=== PATIENT | female | born 1950 | race Caucasian/White ===

== ENCOUNTER → 2018-03-06 11:00 | Outpatient (CLI) | payer MEDICARE, OTHER, SELFPAY ==
--- NOTE | 2018-03-06 11:03 | US_ITS ---
STUDY: THYROID ULTRASOUND REASON FOR EXAM: Female, 67 years old. History of thyroid nodules. TECHNIQUE: Ultrasound evaluation of the thyroid was performed with real-time and static quintero-scale imaging. COMPARISON: None. FINDINGS: RIGHT LOBE: The right lobe of the thyroid gland measures 4.7 cm x 1.8 cm 6 cm. There is a homogeneous echotexture. A dominant solid nodule is seen in the upper pole of the right lobe. This measures 1.7 cm x 1.2 cm x 1.2 cm. There is also evidence of a 2 smaller hypoechoic nodules measuring 6 mm x 6 mm x 5 mm in the midportion of the right lobe. LEFT LOBE: The left lobe of the thyroid gland measures 4.4 cm x 1.5 cm x 1.1 cm. There is a homogeneous echotexture. There are 3 subcentimeter hypoechoic solid nodules. The largest is in the upper pole and measures 6 mm x 6 mm x 4 mm. Focal calcification is seen within it. ISTHMUS: The isthmus measures 2.0 mm. There is a 5 mm x 6 mm x 4 mm hypoechoic solid nodule along the right side of the isthmus. The regional lymph nodes are normal. US/Thyroid IMPRESSION: Bilateral thyroid nodules as described. The largest is a solid nodule measuring 1.7 cm x 1.2 cm x 1.2 cm. This lies in the upper pole of the right lobe. Electronically Signed: Delano Alegria MD at 12:54 EDT Tel [phone], Service support ,
== END ==
PROVIDERS: Family Provider Family Medicine; PCP Family Medicine; Visit Provider Surgery
DX: E04.1 Nontoxic single thyroid nodule (principal)
CPT/HCPCS: 76536

== ENCOUNTER 2018-03-28 06:59 | Day surgery (SDC) | payer MEDICARE, OTHER, SELFPAY ==
--- NOTE | 2018-03-28 | IMM_PTH ---
PATIENT: ANNIKA DOWNEY LOC: EN U#:[id number] AGE/SX: 67/F ROOM: RE03/28/[address]: Dr. Rusty Sawyer MD : 1950 BED: DIS: 03/28/2018 SPEC #: [id number] RECD: 03/29/18 11:40 STATUS: TISHA FAHAD #: [id number] SUSAN: 03/28/18 00:[address]: Rusty Sawyer DEPT: IMMUNOHISTOCHEMISTRY RECD BY: Collette Al ENTERED: 03/29/18 11:40 SP TYPE: IMMUNO OTHR DR: Dr. Evert Reid MD Tissues: A - Stomach, NOS Procedures: H Pylori (initial) PHYSICIAN & INSTITUTION [place] [id number] SPECIMEN INFORMATION: Tissue Source: A ? Antral biopsy Clinical Info: GERD, esophagitis Specimen Number: [id number] CPT code: 75502 METHODOLOGY: Deparaffinized sections of prefer/formalin-fixed tissue or PAP/DQ stained slides are incubated with monoclonal/polyclonal antibodies/oligonucleotide probes. Localization is made via biotin free immunoperoxidase method. Appropriate controls are performed and reacted as expected. Results on target cell population are indicated in the following table: RESULTS: ANTIBODY / CLONE RESULT Block A H Pylori (polyclonal) negative These tests were developed and their performance characteristics determined by [facility]. They may not have been cleared or approved by the U.[place]. Food and Drug Administration. The FDA has determined that such clearance or approval is not necessary. INTERPRETATION: A. Antral biopsy: Negative for Helicobacter pylori organisms. SJ:armaan 03/31/18
[2018-03-28 07:25] VITALS: BP 128/68; PULSE 77; RESP 18; TEMP 36.7; O2SAT 98; BMI 43.9
--- NOTE | 2018-03-28 07:56 | EGD_PTH ---
PATIENT: ANNIKA DOWNEY LOC: EN U#:[id number] AGE/SX: 67/F ROOM: RE03/28/[address]: Dr. Rusty Sawyer MD : 1950 BED: DIS: 03/28/2018 SPEC #: [id number] RECD: 03/28/18 10:15 STATUS: TISHA FAHAD #: [id number] SUSAN: 03/28/18 07:[address]: Rusty Sawyer DEPT: SURGICAL PATHOLOGY RECD BY: Jorge Méndez ENTERED: 03/28/18 12:11 SP TYPE: EGD BIOPSY OT DR: Dr. Evert Reid MD Tissues: A - Gastric mucous membrane B - Esophageal mucous membrane Procedures: Surgery Specimen Level IV HEADER OPERATION: EGD with biopsy PRE-OP DIAGNOSIS: GERD, esophagitis TISSUE SUBMITTED: A ? Antral biopsy for H. pylori and path, B ? Distal esophageal biopsies MICROSCOPIC DIAGNOSIS A. Antral biopsy: Mild gastritis. See microscopic description and comment. B. Distal esophageal biopsy: Fragments of squamous epithelium with minimal chronic inflammation. AMNA:armaan 03/29/18 COMMENT A. The results of immunohistochemistry for Helicobacter pylori will be reported separately ([id number]). MICROSCOPIC DESCRIPTION Slides are reviewed. A. The specimen shows fragments of gastric mucosa with chronic inflammatory cell infiltrates in the lamina propria consisting of lymphocytes and plasma cells, consistent with mild chronic gastritis. A minute lymphoid aggregate is also noted, favor benign. GROSS DESCRIPTION A - Received in fixative is one container labeled with the patient's name and designated antral biopsy. The specimen consists of one irregular fragment of light garcía soft tissue that measures 0.4 x 0.3 x 0.1 cm. The specimen is totally submitted in one cassette. B - Received in fixative is one container labeled with the patient's name and designated distal esophageal biopsy. The specimen consists of multiple irregular fragments of light garcía soft tissue that in aggregate measure 0.5 x 0.3 x 0.1 cm. The specimen is totally submitted in one cassette. / AMNA:armaan 03/28/18 TC:3 CPT: 36591 x2
[2018-03-28 08:16] VITALS: BP 111/59; BP 128/68; PULSE 79; RESP 18; TEMP 36.6; O2SAT 100
[2018-03-28 08:20] VITALS: BP 113/43; BP 128/68; PULSE 82; RESP 18; O2SAT 99
[2018-03-28 08:25] VITALS: BP 102/49; BP 128/68; PULSE 79; RESP 18; O2SAT 100
--- NOTE | 2018-03-28 08:27 | OP.PCM_ITS ---
Problem List (1) GERD (gastroesophageal reflux disease) Status: Acute Qualifiers: Esophagitis presence: with esophagitis Qualified Code(s): K21.0 - Gastro- esophageal reflux disease with esophagitis (2) Screening for intestinal cancer Status: Acute Report of Operation Date of Procedure: 03/28/18 Pre-Operative Diagnosis: Intractable gastroesophageal reflux disease. Screening for intestinal cancer Post-Operative Diagnosis: Hiatal hernia with distal esophagitis. Mild antral gastritis. Normal-appearing colon. Grade 2 internal hemorrhoids Surgery/Procedure Performed:: Esophagogastroduodenoscopy with cold forcep antral and distal esophageal biopsies. Colonoscopy Description of Surgical Findings:: Timeout and informed consent was obtained. 67-year-old female was taken to the endoscopy suite. Her oropharynx anesthetized with Cetacaine. She was placed in the left lateral decubitus position. She underwent monitored anesthesia care. Her oropharynx is nice with Topex. Flexible gastroscope was inserted and supplemental inlet. Proximal midesophagus not remarkable. EG junction was foreshortened at 35 cm and a small hiatal hernia noted. Findings were consistent with some mild reflux. Scope was advanced to the stomach. Diffuse erythema particularly of the antrum of the stomach noted. More of a chronic condition. Scope was advanced through the pylorus. the first and second portions of the duodenum were inspected. This was not remarkable. Scope was withdrawn back in the stomach retroflexed. The hiatal hernia noted. The cardia was not remarkable. Greater and lesser curvatures were normal. The scope was advanced back down to the antrum where a cold forceps biopsy the antrum was obtained. Excess fluid and air was aspirated free the scope was withdrawn to the distal esophagus. Distal esophageal biopsies were obtained. Then the scope was further withdrawn. Distal esophageal cold forcep biopsies were obtained of the clinical reflux. Hemostasis was nicely intact. The scope was further withdrawn without additional abnormality. The patient was kept in a left lateral decubitus position. Digital rectal exam demonstrated moderate internal/external hemorrhoids. Extraordinarily lax tone. The scope was advanced through the rectum sigmoid transverse colon was easily advanced to the cecum. The cecum and ileocecal valve area was nicely achieved. Bowel prep was adequate there was some liquid stool that needed to be aspirated. The scope was withdrawn from the cecum and ascending colon transverse colon descending colon and rectum. No acute abnormalities noted. The scope was retroflexed in the rectum . Grade 2 nonbleeding internal hemorrhoids noted. Excess fluid and air was aspirated free the procedure was completed with the patient tolerating it well. Impression Mild antral gastritis. Small hiatal hernia with findings of distal reflux esophagitis. Antral and distal esophageal biopsies pending. Normal-appearing colon. Do not have evidence of a previous colonoscopy. Next screening colonoscopy in 10 years. She will be notified of pathology results as they become available. It is likely that although she is on lansoprazole for reflux that the prednisone therapy that she was administered as aggravated her reflux disease. Conservative measures will be recommended. Colonoscopy was started at 0803. This sequence was dated 06/05 0.1. The procedure was completed at 0812.53. Rusty Sawyer M.D., F.A.C.S. Type of Anesthesia:: MAC
[2018-03-28 08:32] VITALS: BP 110/98; BP 128/68; PULSE 70; RESP 18; TEMP 36.8; O2SAT 100
[2018-03-28 08:51] LABS: Bedside Glucose 110 mg/dL (70-110)
[2018-03-28 09:06] VITALS: BP 128/68
== END 2018-03-28 09:06 | disposition home or self-care (01) ==
LOC: EN 07:00 → AC 07:00
PROVIDERS: Family Provider Family Medicine; PCP Family Medicine; Visit Provider Surgery
PROC: 0DJD8ZZ Inspection of Lower Intestinal Tract, Via Natural or Artificial Opening Endoscopic (ICD-10-PCS; CPT 45378; principal; 2018-03-28 08:25)
DX: Z12.11 Encounter for screening for malignant neoplasm of colon (principal); K21.0 Gastro-esophageal reflux disease with esophagitis; K44.9 Diaphragmatic hernia without obstruction or gangrene; K64.8 Other hemorrhoids; K29.50 Unspecified chronic gastritis without bleeding; K64.4 Residual hemorrhoidal skin tags; Z79.899 Other long term (current) drug therapy; I10 Essential (primary) hypertension; E78.5 Hyperlipidemia, unspecified; E11.9 Type 2 diabetes mellitus without complications; I27.20 Pulmonary hypertension, unspecified; E66.01 Morbid (severe) obesity due to excess calories; Z68.41 Body mass index [BMI] 40.0-44.9, adult; E04.2 Nontoxic multinodular goiter; K20.9 Esophagitis, unspecified
CPT/HCPCS: 43239; G0121; 82962; 88305; 88342; J7120

== ENCOUNTER → 2018-03-29 11:41 | Outpatient (CLI) | payer MEDICARE, OTHER, SELFPAY ==
--- NOTE | 2018-03-29 13:30 | ASPS_PTH ---
PATIENT: ANNIKA DOWNEY LOC: [facility] U#:[id number] AGE/SX: 75/F ROOM: RE03/29/[address]: Dr. Rusty Sawyer MD : 1950 BED: DIS: SPEC #: [id number] RECD: 03/30/18 10:18 STATUS: TISHA FAHAD #: [id number] SUSAN: 03/29/18 13:[address]: Rusty Sawyer DEPT: CYTOLOGY RECD BY: Attila English ENTERED: 03/30/18 11:46 SP TYPE: ASPIRATION OTHR DR: Dr. Evert Reid MD Tissues: Thyroid gland, NOS Procedures: Pap Stain (control) Special Stain Group II Cytology Other HEADER OPERATION: Right thyroid FNA PRE-OP DIAGNOSIS: Right thyroid nodule TISSUE SUBMITTED: Right thyroid, 8 slides DIAGNOSIS CYTOLOGY Fine needle aspiration, right thyroid nodule (smears): Adequate for evaluation. Negative, consistent with benign follicular nodule. AM:armaan 03/31/18 CYTOLOGY STUDY Slides are reviewed. CYTOLOGY GROSS Received are eight smears labeled with the patient's name and designated per the requisition as right thyroid. Submitted for staining. 03/30/18 TC:5 CPT: 41239
== END ==
PROVIDERS: Family Provider Family Medicine; PCP Family Medicine; Visit Provider Surgery
DX: E04.1 Nontoxic single thyroid nodule (principal)
CPT/HCPCS: 88161; 88313

== ENCOUNTER → 2018-04-17 15:43 | Outpatient (CLI) | payer MEDICARE, OTHER, SELFPAY ==
[2018-04-17 18:05] LABS: T4 Free Direct 1.11 ng/dL (0.76-1.46); Thyroid Stim Hormone (TSH) 2.78 uIU/mL (0.358-3.74)
== END ==
PROVIDERS: Family Provider Family Medicine; PCP Family Medicine; Visit Provider Surgery
DX: L65.9 Nonscarring hair loss, unspecified (principal); R53.83 Other fatigue
CPT/HCPCS: 36415; 84439; 84443

== ENCOUNTER → 2018-09-27 06:32 | Outpatient (CLI) | payer MEDICARE, OTHER, SELFPAY ==
--- NOTE | 2018-09-27 06:46 | MRI_ITS ---
STUDY: MRI LEFT KNEE REASON FOR EXAM: Knee pain after twisting injury 09/20/2018. TECHNIQUE: Standardized fat and water weighted pulse sequences were obtained in all 3 orthogonal planes. COMPARISON: Radiographs 09/03/2014. FINDINGS: There is a small radial tear of the body of the medial meniscus (T2 sagittal image 6; proton density sagittal images 9, 10). There is arthrosis of the medial femorotibial compartment with chondral thinning of the medial femoral condyle (T2 sagittal image 7), a small subchondral cyst of the medial tibial plateau, and mild subchondral cystic change of the posterior aspect of the medial femoral condyle. There is mild subchondral bone edema of the medial tibial plateau (T2 coronal images 16-18), a stress phenomenon. There is a sprain of the superficial fibers of the distal medial collateral ligament (T2 coronal image 17). Normal distal semimembranosus, gracilis and semitendinosus tendons. Normal lateral meniscus. Normal hyaline cartilage of the lateral femorotibial compartment. Normal lateral femoral condyle and tibial plateau. Normal proximal tibiofibular articulation. Normal lateral collateral (fibular) ligament. Normal popliteus tendon. Normal biceps femoris tendon. Normal anterior cruciate ligament (ACL). Normal posterior cruciate ligament (PCL). Normal congruent patellofemoral articulation. There is arthrosis of the patellofemoral compartment with partial-thickness chondral loss (T2 sagittal image 13) and mild subchondral cystic change of the patella. Normal medial and lateral patellar retinaculum. Normal visualized quadriceps tendon. Normal patellar tendon. Normal Hoffa's fat pad. There is a small joint effusion. There is a small popliteal cyst (T2 sagittal images 4-7). There is edema in the subcutis adipose space. The otherwise visualized osseous structures are unremarkable. MRI/Lower Ext Joint Only (Routine) IMPRESSION: Small radial tear of the body of the medial meniscus. Arthrosis of the medial femorotibial and patellofemoral compartments. Medial collateral ligament sprain. Mild subchondral bone edema of the medial tibial plateau, a stress phenomenon. Small joint effusion. Small popliteal cyst. Electronically Signed: Cole Brown MD at 9:00 EST Tel , Service support ,
--- OUTSIDE RECORDS SUMMARY | 2018-11-22 11:30 | XMS RPT_ITS ---
:1950 Author Organization OHIP Support Name Relationship Address Phone EDU DOWNEY Unavailable [address] + [place] [address] [employer] DOWNEY [employer] Unavailable [address] + [place] [address] DOWNEY, EDU Unavailable [address] + [place] [address] [employer] DOW[employer] Unavailable [address] + [place] [address] DOWNEY, EDU Unavailable [address] + [place] [address] [employer] R DOWNEY [employer] Unavailable [address] + [place] [address] DOWNEY, EDU Unavailable [address] + [place] [address] T R DOWNEY [employer] Unavailable [address] + [place] [address] DOWNEY, EDU Unavailable [address] + [place] [address] T R DOWNEY [employer] Unavailable [address] + [place] [address] DOWNEY, EDU Unavailable [address] + [place] [address] [employer] DOWNEY [employer] Unavailable [address] + [place] [address] DOWNEY, EDU Unavailable [address] + [place] [address] [employer] R DOWNEY [employer] Unavailable [address] + [place] [address] DOWNEY, EDU Unavailable [address] + [place] [address] [employer] R [employer]OW[employer] Unavailable [address] + [place] [address] EDU DOWNEY Unavailable [address] + [place] [address] [employer]OWNEY [employer] Unavailable [address] + [place] [address] EDU DOWNEY Unavailable [address] + [place] [address] [employer] R [employer]OW[employer] Unavailable [address] + [place] [address] EDU DOWNEY Unavailable [address] [phone] [place] [address] T R DOWNEY [employer] Unavailable [address] + [place] [address] Care Team Providers Name Role Phone FRANCINE REID) Referring Unavailable FRANCINE REID) Attending Unavailable FRANCINE REID) Referring Unavailable FRANCINE REID) Referring Unavailable KJ YEN Referring Unavailable FRANCINE REID) Referring Unavailable FRANCINE REID) Referring Unavailable FRANCINE REID) Referring Unavailable REE FLETCHER Attending Unavailable FRANCINE REID) Referring Unavailable FRANCINE REID) Referring Unavailable FRANCINE REID) Referring Unavailable FRANCINE REID) Attending Unavailable FRANCINE REID) Referring Unavailable FRANCINE REID) Attending Unavailable FRANCINE REID) Referring Unavailable FRANCINE REID) Referring Unavailable FRANCINE REID) Attending Unavailable FRANCINE REID) Referring Unavailable Rusty Sawyer Attending Unavailable Rusty Sawyer Referring Unavailable Evert Reid Primary Care Unavailable Rusty Sawyer Attending Unavailable Evert Reid Referring Unavailable Evert Reid Primary Care Unavailable Rusty Sawyer Attending Unavailable Rusty Sawyer Referring Unavailable Evert Reid Primary Care Unavailable Rusty Sawyer Attending Unavailable Rusty Sawyer Referring Unavailable Bursley, Evert Primary Care Unavailable Rusty Sawyer Consulting Unavailable Rusty Sawyer Attending Unavailable Jeanette, Evert Referring Unavailable Bursley, Evert Primary Care Unavailable Silverio, Rusty Attending Unavailable Silverio, Rusty Referring Unavailable Bursley, Evert Primary Care Unavailable Silverio, Rusty Attending Unavailable Silverio, Rusty Referring Unavailable Bursley, Evert Primary Care Unavailable Hernesto Brar Attending Unavailable Bursley, Evert Referring Unavailable Bursley, Evert Primary Care Unavailable Beau Abdi Attending Unavailable Beau Abdi Referring Unavailable Bursley, Evert Primary Care Unavailable NerileyReynaldoe Attending Unavailable Neriley, Evert Referring Unavailable Bursley, Evert Primary Care Unavailable Hernesto Brar Attending Unavailable Neriley, Evert Referring Unavailable Bursley, Evert Primary Care Unavailable PROBLEMS PROBLEMS DATE TYPE CONDITION / CODE ATTENDING STATUS SOURCE 09/18/2018 Active Localized swelling, NA Active [place] mass and lump, right [facility] upper limb / [place] R22.31(ICD-10) Repository 07/05/2018 Active Right upper quadrant NA Active [place] pain / R10.11(ICD-10) Clinic Main [place] Repository 07/05/2018 Active Unspecified abdominal NA Active [place] pain / R10.9(ICD-10) Clinic Main [place] Repository 07/05/2018 Active Unknown / UNK(Unknown) NA Active [facility] Main [place] Repository 08/04/2016 Active Vitamin D deficiency, NA Active [place] unspecified / [facility] E55.9(ICD-10) [place] Repository 06/28/2018 Active Type 2 diabetes NA Active [place] mellitus without [facility] Main complications / [place] E11.9(ICD-10) Repository 04/14/2018 Active Pain in thoracic spine NA Active [place] / M54.6(ICD-10) Clinic Main [place] Repository 04/14/2018 Active Other chronic pain / NA Active [place] G89.29(ICD-10) Clinic Main [place] Repository 03/29/2018 Unknown E04.2 - Nontoxic Rusty Sawyer Active [place] multinodular goiter / Community E04.2(ICD-10) Hospital Repository 03/22/2018 Active Asymptomatic NA Active [place] menopausal state / [facility] Main Z78.0(ICD-10) [place] Repository 03/22/2018 Active Encounter for NA Active [place] screening for [facility] Main osteoporosis / [place] Z13.820(ICD-10) Repository 03/22/2018 Active Menopausal and female NA Active [place] climacteric states / [facility] Main N95.1(ICD-10) [place] Repository 03/22/2018 Active Encounter for NA Active [place] screening mammogram [facility] Main for malignant neoplasm [place] of breast / Repository Z12.31(ICD-10) 03/20/2018 Active Phlebitis and NA Active [place] thrombophlebitis of [facility] Main superficial vessels of [place] right lower extremity Repository / I80.01(ICD-10) 03/09/2018 Unknown K21.9 - Rusty Sawyer Active [place] [facility] reflux disease without Hospital esophagitis / Repository K21.9(ICD-10) 03/09/2018 Unknown E66.01 - Morbid Rusty Sawyer Active [place] (severe) obesity due Community to excess calories / Hospital E66.01(ICD-10) Repository 03/09/2018 Unknown Z68.41 - Body mass Rusty Sawyer Active [place] index (BMI) 40.0-44.9, Community adult / Z68.41(ICD-10) Hospital Repository 03/09/2018 Unknown Z12.10 - Encounter for Rusty Sawyer Active [place] screening for Community malignant neoplasm of Hospital intestinal tract, Repository unspecified / Z12.10(ICD-10) 03/08/2018 Active Hypokalemia / NA Active [place] E87.6(ICD-10) Clinic Main [place] Repository 03/08/2018 Active Other alf NA Active [place] (current) drug therapy Clinic Main / Z79.899(ICD-10) [place] Repository 10/14/2017 Unknown R07.9 - Chest pain, [place], Active [place] unspecified / [facility] R07.9(ICD-10) Hospital Repository PROCEDURES PROCEDURES No Procedure Records FoundRESULTS RESULTS EXT NON VASC Observed: 10/05/2018 Status: F Source: [place] LIMITED/SOFT TISS 1:07 PM [facility] REPOSITORY [facility] Imaging Services [address] [place] [address] Ext Non Vasc Limited/Soft Tiss MR#: [id number] Acct: [id number] Name: MACY DOWNEY Rep #: [id number] : 1950 F 68 From: Kj Garcia MD PCP: Evert Reid MD Status: REG CLI Study: Ext Non Vasc Limited/Soft Tiss Date of Exam: 10/05/18 Exam# [id number] Ordering Dr: Evert Reid MD STUDY: SUPERFICIAL ULTRASOUND - LEFT THIGH REASON FOR EXAM: Female, 68 years old. Lipoma TECHNIQUE: A superficial ultrasound was performed with real- time and static quintero-scale imaging. COMPARISON: None. FINDINGS: Multiple ultrasound images of the soft tissues about the left hip were obtained. In the region of interest, structure isoechoic and slightly hyperechoic to adjacent skeletal muscle is suspected that measures 7.1 x 6.7 x 3.1 cm. This is not as hyperechoic as is typically seen with a large lipoma. Although lipoma is certainly the main consideration given the ultrasound appearance, consider additional imaging with MRI if possible. US/Ext Non Vasc Limited/Soft Tiss IMPRESSION: Indeterminate structure in the region of clinical interest, less hyperechoic than is typically seen with lipoma. For this reason, MRI correlation is recommended if possible. Electronically Signed: Kj Garcia MD at 9:31 EST Tel , Service support , CC: Evert Reid MD Digital Media Intern: Signed LOWER EXT JOINT ONLY Observed: 09/27/2018 Status: F Source: [place] (ROUTINE) 6:46 AM [facility] REPOSITORY [facility] Imaging Services [facility] [place] [address] Lower Ext Joint Only (Routine) MR#: [id number] Acct: [id number] Name: MACY DOWNEY Rep #: [id number] : 1950 F 68 From: Cole Brown MD PCP: Evert Reid MD Status: REG CLI Study: Lower Ext Joint Only (Routine) Date of Exam: 09/27/18 Exam# [id number] Ordering Dr: Beau Abdi MD STUDY: MRI LEFT KNEE REASON FOR EXAM: Knee pain after twisting injury 09/20/2018. TECHNIQUE: Standardized fat and water weighted pulse sequences were obtained in all 3 orthogonal planes. COMPARISON: Radiographs 09/03/2014. FINDINGS: There is a small radial tear of the body of the medial meniscus (T2 sagittal image 6; proton density sagittal images 9, 10). There is arthrosis of the medial femorotibial compartment with chondral thinning of the medial femoral condyle (T2 sagittal image 7), a small subchondral cyst of the medial tibial plateau, and mild subchondral cystic change of the posterior aspect of the medial femoral condyle. There is mild subchondral bone edema of the medial tibial plateau (T2 coronal images 16-18), a stress phenomenon. There is a sprain of the superficial fibers of the distal medial collateral ligament (T2 coronal image 17). Normal distal semimembranosus, gracilis and semitendinosus tendons. Normal lateral meniscus. Normal hyaline cartilage of the lateral femorotibial compartment. Normal lateral femoral condyle and tibial plateau. Normal proximal tibiofibular articulation. Normal lateral collateral (fibular) ligament. Normal popliteus tendon. Normal biceps femoris tendon. Normal anterior cruciate ligament (ACL). Normal posterior cruciate ligament (PCL). Normal congruent patellofemoral articulation. There is arthrosis of the patellofemoral compartment with partial-thickness chondral loss (T2 sagittal image 13) and mild subchondral cystic change of the patella. Normal medial and lateral patellar retinaculum. Normal visualized quadriceps tendon. Normal patellar tendon. Normal Hoffa's fat pad. There is a small joint effusion. There is a small popliteal cyst (T2 sagittal images 4-7). There is edema in the subcutis adipose space. The otherwise visualized osseous structures are unremarkable. MRI/Lower Ext Joint Only (Routine) IMPRESSION: Small radial tear of the body of the medial meniscus. Arthrosis of the medial femorotibial and patellofemoral compartments. Medial collateral ligament sprain. Mild subchondral bone edema of the medial tibial plateau, a stress phenomenon. Small joint effusion. Small popliteal cyst. Electronically Signed: Cole Brown MD at 9:00 EST Tel , Service support , CC: Evert Reid MD; Beau Abdi MD Digital Media Intern: Signed XR SHOULDER 2V Observed: 09/18/2018 Status: F Source: [place] AP/TRUE AP RT 11:[address] [facility] REPOSITORY * * *Final Report* * * DATE OF EXAM: Sep 18 2018 11:46AM WOX [id number] - XR SHOULDER 2V AP/TRUE AP RT / PROCEDURE REASON: Lump of skin of upper extremity, right * * * * Physician Interpretation * * * * HISTORY: 68-YEAR-OLD FEMALE WITH Lump of skin of upper extremity, right . Pt. states bony protuberance upper Rt shoulder for 5 days. No injury. TECHNIQUE: XR SHOULDER 2V AP/TRUE AP RT Laterality: RIGHT Number of different views (projections): 2 COMPARISON: None RESULT: Glenohumeral joint space is maintained. Acromiohumeral interval is maintained. Acromioclavicular joint is intact. No fracture or dislocation. IMPRESSION: NO ACUTE BONY ABNORMALITY. Digital Media Intern: LARRY Transcribe Date/Time: Sep 18 2018 8:57P Dictated by : CARMELINA NOLASCO MD This examination was interpreted and the report reviewed and electronically signed by: CARMELINA NOLASCO MD on Sep 18 2018 8:59PM EST [id number] PROGRESS Observed: 09/18/2018 Status: COMPLETED Source: [place] 11:[address] [facility] REPOSITORY HNO ID: [id number] Author: Gary Alexander (Rt) Kayla Chappell Service: (none) Author Type: Retail Sales Director Type: Progress Notes Filed: 09/18/2018 11:44 AM Note Text: Radiology Service Progress Note PATIENT NAME: Macy Downey DATE OF SERVICE: September 18, 2018 TIME: 11:41 AM PATIENT IDENTITY VERIFICATION COMPLETED USING TWO (2) METHODS: Patient confirmed name verbally and Date of . PATIENT GENDER DATA: Female. status: : No status: NO. PATIENT RELEVANT IMPLANT DATA REVIEWED: Not Applicable RADIOLOGY DEPARTMENT: General X-ray: Exam(s) Completed: Upper Extremity X-Ray(s): Shoulder, AP / TRUE AP right : PERIPHERAL IV DATA: Not applicable SIGNED BY: RT Oziel September 18, 2018 11:41 AM CNOV Observed: 09/18/2018 Status: COMPLETED Source: [place] 10:[address] [facility] REPOSITORY [facility] MACY DOWNEY ([id number]) 1950 F Date Time Provider Department 09/18/18 10:40 AM FRANCINE REID) [facility] During your visit today, we recorded the following information about you: Pulse Respiration Blood pressure Weight 88/minute 12/minute 124/74 113.4 kg Francine Reid MD 09/18/2018 2:52 PM Signed Chief Complaint Patient presents with: F/U 6 Month: c/o nodule on left flank HPI Macy Downey is a 68 year old female who presents here today for routine 6 month follow up. Requesting evaluation of nodules on right shoulder and chronic nodule on her left hip. Left shoulder nodule appeared 5 days ago and was tender, pain now resolved. Not wearing bra to avoid causing pain/swelling. Hard nodule, unchanged in size over 5 days. Left hip nodule has been present for years, previously told was fatty tumor, but is hard and immobile now. Since last OV had severe left knee pain and has been following up with Dr. Abdi who injected stem cells into knee in July. Pain is much improved. Records not available today. Following up with Ree Fletcher DO for vasomotor symptoms/menopause. Started on Climara and has been increasing her dosage to help with sweating and hot flashes. DIABETES MELLITUS: Ms. Downey was last seen 6 months ago. Since our last visit she denies excessive thirst or increased frequency of urination, numbness, tingling or pain in extremities, new or unusual visual symptoms and low sugar/hypoglycemic reactions. Follows a diabetic diet most of the time. Diet controlled. She reports checking her glucose on a every other day schedule with sugars in the fasting <125 range. Patient's last HgA1C was Hemoglobin A1C Date Value 03/08/2018 6.1 % 01/18/2018 5.4 07/07/2017 5.9 % Hemoglobin A1C (POCT) (%) Date Value 09/18/2018 5.7 ) Last Ophthalmology exam was within the past 12 months Last Podiatry exam was Today Refusing influenza vaccine. Past medical history, appointments, medications, allergies reviewed. Previous Medical History PAST MEDICAL HISTORY Diagnosis Date - Abdominal pain, unspecified site - Acute gastritis 08/07/2009 - Allergy, unspecified not elsewhere classified - Diffuse cystic mastopathy - Diverticulosis of colon (without mention of hemorrhage) Diverticulosis - Empty sella (HCC) - Endometriosis s/p SUNIL BSO - Esophageal reflux - Esophagitis - Fatty liver disease, nonalcoholic - Heart murmur - Hiatal hernia 08/07/2009 - Hot flashes due to menopause - Hypothyroidism - Morbid obesity (HCC) - Multiple thyroid nodules yearly US - Myalgia and myositis, unspecified - Pulmonary fibrosis (HCC) 2016 minor in right lung - Pulmonary hypertension (HCC) Seen by Dr. Brar - Rheumatoid arthritis(714.0) - Superficial thrombophlebitis - Type II or unspecified type diabetes mellitus without mention of complication, not stated as uncontrolled - Unspecified asthma(493.90) - Unspecified chronic bronchitis (HCC) Chronic bronchitis - Unspecified essential hypertension Previous Surgical History PAST SURGICAL HISTORY Procedure Laterality Date - APPENDECTOMY 1966 - EGD W/O BRSH SPECIMEN W/BX 08/07/09 HH, gastritis - EGD W/O OR W/BRUSH/WASH 10/19/13 EGD - FNA WITH IMAGING 03/26/2010 U/S FNA right thyroid x 1 and left x 2 - LAPAROSCOPY DIAGNOSTIC endometriosis - PAST SURGICAL HISTORY OF 09/30/2015 Right heart cath, Left heart cath, left ventriculogram, coronary arteriography - [place] ANESTH,TOTAL KNEE ARTHROPLASTY Right 2016 - REMOVAL OF OVARY/TUBE(S) 1987 Salpingo-oophorectomy - REMOVAL OF TONSILS,<12 Y/O Tonsillectomy - TOTAL ABDOM HYSTERECTOMY 1987 Hysterectomy, SUNIL for benign tumor Family History FAMILY HISTORY Problem Relation Age of Onset - Heart Father - Thyroid Father - Heart Mother - other (Pulmonary fibrosis) Mother IPF? - Cancer Paternal Grandfather bone cancer-multiple myeloma - Cancer Maternal Grandfather liver - Cancer Paternal Aunt lungs - Cancer Paternal Uncle lung and brain - Heart Sister in her sleep - Thyroid Sister - Cancer Brother pancreatic - Heart Brother in his sleep - Diabetes Sister - other (a fib) Sister Patient Allergies ALLERGIES Allergen Reactions - Amoxicillin Diarrhea - Glucophage Xr [Metf* Diarrhea, GI Upset Bloating - Cymbalta [Duloxetin* Other: See Comments Neuropathy , electrical shocks - Glipizide Unknown - Nexium [Esomeprazol* Other: See Comments Ineffective - Omeprazole Other: See Comments Ineffective - Protonix [Pantopraz* Other: See Comments Ineffective - Altace [Ramipril] Other: See Comments Blurred vision - Zantac [Ranitidine * Rash, Itching Current Medications Current Outpatient Prescriptions on File Prior to Visit: estradiol (CLIMARA) 0.05 mg/24 hr Apply 1 Patch as directed once each week. levothyroxine (SYNTHROID) 50 mcg tablet TAKE 1 TABLET BY MOUTH ONCE DAILY. triamterene-hydrochlorothiazide (MAXZIDE-25) 37.5-25 mg per tablet TAKE 1/2 TABLET BY MOUTH ONCE DAILY KLOR-CON 10 10 mEq tablet TAKE 2 TABLETS BY MOUTH TWICE DAILY. cyclobenzaprine (FLEXERIL) 5 mg tablet Take 1 tablet by mouth three times daily as needed for Muscle Spasm. cholecalciferol (VITAMIN D-3) 5,000 unit tab Take 5,000 Units by mouth once daily. losartan (COZAAR) 25 mg tablet Take 0.5 tablets by mouth once daily. fluticasone (FLONASE) 50 mcg/actuation nasal spray Use 2 Sprays in each nostril once daily. Insulin Odem, Disposable, (NOVOFINE 30) 30 gauge x 1/3 ndle 1 Device once daily. VICTOZA 2-COCO 0.6 mg/0.1 mL (18 mg/3 mL) pnij INJECT 1.2 MILLIGRAM(S) BY SUBCUTANEOUS ROUTE , 1 TIME PER DAY , FOR 30 DAYS rosuvastatin (CRESTOR) 20 mg tablet Take 20 mg by mouth once daily. lansoprazole (PREVACID) 30 mg capsule Take 1 capsule by mouth once daily. amLODIPine (NORVASC) 10 mg tablet Take 1 tablet by mouth once daily. Psyllium (METAMUCIL) powd Take by mouth. MULTIVITAMIN TAB Take one(1) tablet daily. No current facility-administered medications on file prior to visit. 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 Social History Main Topics Smoking status: Never Smoker Smokeless tobacco: Never Used Comment: Father smoked in childhood home. ETS when visiting 2 sisters. Alcohol use: Yes Comment: Occasional glass of wine. Drug use: No Social History Narrative Sister in law Anushka Ornelas 7 brothers and sisters, Elizabeth Owens and Petar Ornelas FATHER had CABG [address] Pulido Review of Symptoms REVIEW OF SYSTEMS GENERAL: No weight loss, malaise or fevers RESPIRATORY: Negative for cough, hemoptysis, wheezing, COPD, dyspnea or shortness of breath CARDIOVASCULAR: Negative for chest pain, leg swelling, hypertension, CHF or palpitations GI: No nausea, vomiting, or diarrhea SKIN: See HPI EXAM: BP 124/74 Pulse 88 Resp 12 Wt 113.4 kg (250 lb) BMI 47.24 kg/m? General Appearance: Well appearing, alert, in no acute distress, well-hydrated, well nourished.Morbidly obese. Skin: 6 cm semisolid mass on left lateral hip, non mobile, non tender. Possible lipoma vs cyst. Lungs: lungs clear to auscultation. No wheezing, rhonchi, rales. Heart: RRR without murmur, gallop, or rubs. No ectopy. Abdomen: Normal abdominal exam, Abdomen soft, non-tender. Bowel sounds normal. No masses, organomegaly. Extremities: No deformities, edema, skin discoloration, clubbing or cyanosis. Good capillary refill. . Musculoskeletal: bony protrusion just medial to right AC joint, non tender. . Feet: Shoes and socks removed, No deformities, ulcers, calluses, normal distal pulses and sensitive to 10 gm monofilament Health Maintenance List DIABETIC FOOT EXAM due on 08/04/2017 INFLUENZA(1) due on 07/01/2018 HBA1C due on 09/08/2018 STATIN MED ADHERENCE due on 09/30/2018 DIABETES MED ADHERENCE due on 09/30/2018 URINE ALBUMIN:CREATININE RATIO due on 03/08/2019 DILATED RETINAL EXAM due on 03/10/2019 MAMMOGRAM due on 03/22/2019 ANNUAL PCP TEAM CHRONIC DISEASE VISIT due on 06/23/2019 LDL CHOLESTEROL due on 06/28/2019 BP CONTROLLED (<130/80) due on 07/04/2019 DTAP,TDAP,TD(2 - Td) due on 10/21/2026 COLORECTAL CANCER SCREENING,SEE MODIFIER due on 03/28/2028 BONE DENSITY Completed ADULT PREVNAR-13 Completed HEPATITIS C SCREENING Completed Data reviewed Component Latest Ref Rng AND Units 06/23/2018 06/28/2018 WBC 3.70 - 11.00 k/uL 10.95 RBC 3.90 - 5.20 m/uL 4.34 Hemoglobin 11.5 - 15.5 g/dL 13.2 Hematocrit 36.0 - 46.0 % 39.9 MCV 80.0 - 100.0 fL 91.9 MCH 26.0 - 34.0 pG 30.4 MCHC 30.5 - 36.0 g/dL 33.1 RDW-CV 11.5 - 15.0 % 13.4 Platelet Count 150 - 400 k/uL 302 MPV 9.0 - 12.7 fL 9.7 Neut% % 64.1 Abs Neut (ANC) 1.45 - 7.50 k/uL 7.01 Lymph% % 24.7 Abs Lymph 1.00 - 4.00 k/uL 2.71 Baldwin% % 8.5 Abs Baldwin <0.87 k/uL 0.93 (H) Eosin% % 2.1 Abs Eosin <0.46 k/uL 0.23 Baso% % 0.6 Abs Baso <0.11 k/uL 0.07 Nucleated Reds 0 /100 WBC 0.0 Absolute nRBC <0.01 k/uL <0.01 Diff Type Auto Diff Protein, Total 6.3 - 8.0 g/dL 7.5 7.4 Albumin 3.9 - 4.9 g/dL 4.4 4.4 Calcium 8.5 - 10.2 mg/dL 9.7 9.8 Bilirubin, Total 0.2 - 1.3 mg/dL 0.4 0.3 Alkaline Phosphatase 32 - 117 U/L 70 63 AST 13 - 35 U/L 22 16 Glucose 74 - 99 mg/dL 103 (H) 110 (H) BUN 7 - 21 mg/dL 22 (H) 26 (H) Creatinine 0.58 - 0.96 mg/dL 0.62 0.73 Sodium 136 - 144 mmol/L 141 140 Potassium 3.7 - 5.1 mmol/L 4.2 4.1 Chloride 97 - 105 mmol/L 100 97 CO2 22 - 30 mmol/L 25 28 Anion Gap 9 - 18 mmol/L 16 15 ALT 7 - 38 U/L 16 13 eGFR- >60 >60 eGFR-All Other Races . >60 >60 Cholesterol, Total <200 mg/dL 153 Triglyceride <150 mg/dL 136 HDL Cholesterol >39 mg/dL 57 LDL Cholesterol <100 mg/dL 69 Non HDL Cholesterol <130 mg/dL 96 Fasting Time hrs 11 VLDL Cholesterol <30 mg/dL 27 TC:HDL Ratio <5.10 2.68 LDL:HDL Ratio <2.54 1.21 Lipase 16 - 61 U/L 33 Vitamin D 25 Hydroxy 31.0 - 80.0 ng/mL 43.8 ASSESSMENT/PLAN: 1. Controlled type 2 diabetes mellitus without complication, without long-term current use of insulin (HCC) - ICD9: 250.00, ICD10: E11.9 (primary diagnosis) Controlled. - Daily Asprin therapy recommended - Follow up in 6 months, sooner should any other issues arise. - Discussed diabetic education issues of salvage determiner diabetic complications, hypoglycemic symptoms, hyperglycemic symptoms, diet and importance of exercise with patient. - HEMOGLOBIN A1C (POC) - COMP METABOLIC PANEL - HGB A1C - ALBUMIN/CREAT RATIO RND UR 2. Essential hypertension - ICD9: 401.9, ICD10: I10 - good control - Continue current medication(s) - Encouraged dietary sodium restriction/DASH diet - Recommended regular aerobic exercise. - Reviewed risks of HTN and principles of treatment - Goal of BP <140/90 3. Hypothyroidism, unspecified type - ICD9: 244.9, ICD10: E03.9 - check TSH today - continue current dose of Synthroid 0.050 mg 4. BMI 45.0-49.9, adult (HCC) - ICD9: V85.42, ICD10: Z68.42 Improved diet and exercise. Will discuss further at future OV. 5. Gastroesophageal reflux disease without esophagitis - ICD9: 530.81, ICD10: K21.9 - Continue treatment with Prevacid 30 mg QD 6. Other hyperlipidemia - ICD9: 272.4, ICD10: E78.49 - good control - Continue current medication. - Encouraged following a low fat, low cholesterol diet. - Discussed the benefits of regular aerobic exercise and weight loss. 7. Lump of skin of upper extremity, right - ICD9: 782.2, ICD10: R22.31 Possible bony lesion/mass. Obtain xray to confirm. - XR SHOULDER [id number] AP/TRUE AP RT 8. Lipoma of left thigh - ICD9: 214.8, ICD10: D17.24 - US EXTREMITY MASS/FLUID COLLECTION LT Francine Reid MD Referring Provider: FRANCINE REID () [[id number]] Allergies As of Date: 09/18/2018 Noted Allergy Reaction AMOXICILLIN 02/21/2009 6 - Diarrhea GLUCOPHAGE XR (METFORMIN HCL) 03/29/2007 6 - Diarrhea 8 - GI Upset Comments: Bloating CYMBALTA (DULOXETINE) 06/28/2017 14 - Other: See Comments Comments: Neuropathy , electrical shocks GLIPIZIDE 06/28/2017 16 - Unknown NEXIUM (ESOMEPRAZOLE MAGNESIUM) 08/04/2016 14 - Other: See Comments Comments: Ineffective OMEPRAZOLE 08/04/2016 14 - Other: See Comments Comments: Ineffective PROTONIX (PANTOPRAZOLE SODIUM) 08/04/2016 14 - Other: See Comments Comments: Ineffective ALTACE (RAMIPRIL) 08/04/2005 14 - Other: See Comments Comments: Blurred vision ZANTAC (RANITIDINE HCL) 08/04/2005 2 - Rash 9 - Itching Date Reviewed: 09/18/2018 Reviewed by: Wilfred Fontana Ma - Fully Assessed Reason for Visit: F/U 6 Month [444] Cmt: c/o nodule on left flank Reason For Visit History Recorded Primary Visit Diagnosis:Controlled type 2 diabetes mellitus without complication, without long-term current use of insulin ([facility]) [E11.9] Other Visit Diagnoses:Essential hypertension [I10] Hypothyroidism, unspecified type [E03.9] BMI 45.0-49.9, adult (HCC) [Z68.42] Gastroesophageal reflux disease without esophagitis [K21.9] Other hyperlipidemia [E78.49] Lump of skin of upper extremity, right [R22.31] Lipoma of left thigh [D17.24] Order(s):HEMOGLOBIN A1C (POC) [2008288] Order #: [id number]. #[id number] XR SHOULDER [id number] AP/TRUE AP RT [[id number]] Order #: [id number] FUTURE US EXTREMITY MASS/FLUID COLLECTION LT [[id number]] Order #: [id number] FUTURE COMP METABOLIC PANEL [SQCMP] Order #: [id number] FUTURE HGB A1C [UYDOB5Q] Order #: [id number] FUTURE ALBUMIN/CREAT RATIO RND UR [SQUACR] Order #: [id number] FUTURE TSH BLD [SQTSH] Order #: [id number] FUTURE Prescriptions as of 09/18/2018 Sig: ESTRADIOL 0.05 MG/24 HR WEEKL* Apply 1 Patch as directed onc* LEVOTHYROXINE 50 MCG TABLET TAKE 1 TABLET BY MOUTH ONCE D* TRIAMTERENE 37.5 MG-HYDROCHLO* TAKE 1/2 TABLET BY MOUTH ONCE* KLOR-CON 10 MEQ TABLET,EXTEND* TAKE 2 TABLETS BY MOUTH TWICE* CYCLOBENZAPRINE 5 MG TABLET Take 1 tablet by mouth three * Patient not taking: Reported on 09/18/2018 CHOLECALCIFEROL (VITAMIN D3) * Take 5,000 Units by mouth onc* LOSARTAN 25 MG TABLET Take 0.5 tablets by mouth onc* FLUTICASONE 50 MCG/ACTUATION * Use 2 Sprays in each nostril * PEN NEEDLE, DIABETIC 30 GAUGE* 1 Device once daily. VICTOZA 2-COCO 0.6 MG/0.1 ML (* INJECT 1.2 MILLIGRAM(S) BY PULLIAM* ROSUVASTATIN 20 MG TABLET Take 20 mg by mouth once della* LANSOPRAZOLE 30 MG CAPSULE,DE* Take 1 capsule by mouth once * AMLODIPINE 10 MG TABLET Take 1 tablet by mouth once d* PSYLLIUM ORAL POWDER Take by mouth. MULTIVITAMIN TABLET Take one(1) tablet daily. Problem List As Of Date 09/18/2018 Noted Resolved Type II or unspecified type diabetes mellitus w* 07/27/2014 Rheumatoid arthritis (HCC) [M06.9] More... More... ASTHMA UNSPECIFIED [J45.909] More... More... Diffuse cystic mastopathy [N60.19] 08/04/2016 HYPERTENSION NOS [I10] 08/05/2015 ALLERGY, UNSPECIFIED [T78.40XA] Other hyperlipidemia [E78.49] INVALID FOR* Sprain and strain of unspecified site of should*INVALID FOR*08/04/2016 More... OBESITY [E66.9] INVALID FOR*02/06/2015 Multinodular goiter (nontoxic) [E04.2] INVALID FOR* More... Abdominal pain [R10.9] INVALID FOR*10/19/2013 GERD (Gastroesophageal Reflux Disease) [K21.9] INVALID FOR* Abdominal pain, unspecified site [R10.9] INVALID FOR*10/17/2013 BMI 45.0-49.9, adult [Z68.42] INVALID FOR* DM w/ coma type II, uncontrolled (HCC) [E11.69,*INVALID FOR*07/27/2014 Diabetes mellitus type 2, controlled, without c*INVALID FOR* More... Chronic rheumatic arthritis (HCC) [M06.9] INVALID FOR*08/04/2016 Depression [F32.9] INVALID FOR* Vitamin D deficiency [E55.9] INVALID FOR* Essential hypertension [I10] Hypothyroidism [E03.9] Disposition: Return in about 6 months (around 03/18/2019). Follow-up and Disposition History Recorded Encounter Status:Closed by FRANCINE REID MD on 09/18/18 PROGRESS Observed: 09/18/2018 Status: COMPLETED Source: [place] 10:36 AM [facility] [place] REPOSITORY O ID: [id number] Author: Francnie Turner) Jeanette Service: (none) Author Type: Physician Type: Progress Notes Filed: 09/18/2018 2:52 PM Note Text: Chief Complaint Patient presents with: F/U 6 Month: c/o nodule on left flank YUE Downey is a 68 year old female who presents here today for routine 6 month follow up. Requesting evaluation of nodules on right shoulder and chronic nodule on her left hip. Left shoulder nodule appeared 5 days ago and was tender, pain now resolved. Not wearing bra to avoid causing pain/swelling. Hard nodule, unchanged in size over 5 days. Left hip nodule has been present for years, previously told was fatty tumor, but is hard and immobile now. Since last OV had severe left knee pain and has been following up with Dr. Abdi who injected stem cells into knee in July. Pain is much improved. Records not available today. Following up with Ree Fletcher DO for vasomotor symptoms/menopause. Started on Climara and has been increasing her dosage to help with sweating and hot flashes. DIABETES MELLITUS: Ms. Downey was last seen 6 months ago. Since our last visit she denies excessive thirst or increased frequency of urination, numbness, tingling or pain in extremities, new or unusual visual symptoms and low sugar/hypoglycemic reactions. Follows a diabetic diet most of the time. Diet controlled. She reports checking her glucose on a every other day schedule with sugars in the fasting <125 range. Patient's last HgA1C was Hemoglobin A1C Date Value 03/08/2018 6.1 % 01/18/2018 5.4 07/07/2017 5.9 % Hemoglobin A1C (POCT) (%) Date Value 09/18/2018 5.7 ) Last Ophthalmology exam was within the past 12 months Last Podiatry exam was Today Refusing influenza vaccine. Past medical history, appointments, medications, allergies reviewed. Previous Medical History PAST MEDICAL HISTORY Diagnosis Date - Abdominal pain, unspecified site - Acute gastritis 08/07/2009 - Allergy, unspecified not elsewhere classified - Diffuse cystic mastopathy - Diverticulosis of colon (without mention of hemorrhage) Diverticulosis - Empty sella (HCC) - Endometriosis s/p SUNIL BSO - Esophageal reflux - Esophagitis - Fatty liver disease, nonalcoholic - Heart murmur - Hiatal hernia 08/07/2009 - Hot flashes due to menopause - Hypothyroidism - Morbid obesity (HCC) - Multiple thyroid nodules yearly US - Myalgia and myositis, unspecified - Pulmonary fibrosis (HCC) 2016 minor in right lung - Pulmonary hypertension (HCC) Seen by Dr. Brar - Rheumatoid arthritis(714.0) - Superficial thrombophlebitis - Type II or unspecified type diabetes mellitus without mention of complication, not stated as uncontrolled - Unspecified asthma(493.90) - Unspecified chronic bronchitis (HCC) Chronic bronchitis - Unspecified essential hypertension Previous Surgical History PAST SURGICAL HISTORY Procedure Laterality Date - APPENDECTOMY 1966 - EGD W/O BRSH SPECIMEN W/BX 08/07/09 HH, gastritis - EGD W/O OR W/BRUSH/WASH 10/19/13 EGD - FNA WITH IMAGING 03/26/2010 U/S FNA right thyroid x 1 and left x 2 - LAPAROSCOPY DIAGNOSTIC endometriosis - PAST SURGICAL HISTORY OF 09/30/2015 Right heart cath, Left heart cath, left ventriculogram, coronary arteriography - [place] ANESTH,TOTAL KNEE ARTHROPLASTY Right 2016 - REMOVAL OF OVARY/TUBE(S) 1987 Salpingo-oophorectomy - REMOVAL OF TONSILS,<12 Y/O Tonsillectomy - TOTAL ABDOM HYSTERECTOMY 1987 Hysterectomy, SUNIL for benign tumor Family History FAMILY HISTORY Problem Relation Age of Onset - Heart Father - Thyroid Father - Heart Mother - other (Pulmonary fibrosis) Mother IPF? - Cancer Paternal Grandfather bone cancer-multiple myeloma - Cancer Maternal Grandfather liver - Cancer Paternal Aunt lungs - Cancer Paternal Uncle lung and brain - Heart Sister in her sleep - Thyroid Sister - Cancer Brother pancreatic - Heart Brother in his sleep - Diabetes Sister - other (a fib) Sister Patient Allergies ALLERGIES Allergen Reactions - Amoxicillin Diarrhea - Glucophage Xr [Metf* Diarrhea, GI Upset Bloating - Cymbalta [Duloxetin* Other: See Comments Neuropathy , electrical shocks - Glipizide Unknown - Nexium [Esomeprazol* Other: See Comments Ineffective - Omeprazole Other: See Comments Ineffective - Protonix [Pantopraz* Other: See Comments Ineffective - Altace [Ramipril] Other: See Comments Blurred vision - Zantac [Ranitidine * Rash, Itching Current Medications Current Outpatient Prescriptions on File Prior to Visit: estradiol (CLIMARA) 0.05 mg/24 hr Apply 1 Patch as directed once each week. levothyroxine (SYNTHROID) 50 mcg tablet TAKE 1 TABLET BY MOUTH ONCE DAILY. triamterene-hydrochlorothiazide (MAXZIDE-25) 37.5-25 mg per tablet TAKE 1/2 TABLET BY MOUTH ONCE DAILY KLOR-CON 10 10 mEq tablet TAKE 2 TABLETS BY MOUTH TWICE DAILY. cyclobenzaprine (FLEXERIL) 5 mg tablet Take 1 tablet by mouth three times daily as needed for Muscle Spasm. cholecalciferol (VITAMIN D-3) 5,000 unit tab Take 5,000 Units by mouth once daily. losartan (COZAAR) 25 mg tablet Take 0.5 tablets by mouth once daily. fluticasone (FLONASE) 50 mcg/actuation nasal spray Use 2 Sprays in each nostril once daily. Insulin Odem, Disposable, (NOVOFINE 30) 30 gauge x 1/3 ndle 1 Device once daily. VICTOZA 2-COCO 0.6 mg/0.1 mL (18 mg/3 mL) pnij INJECT 1.2 MILLIGRAM(S) BY SUBCUTANEOUS ROUTE , 1 TIME PER DAY , FOR 30 DAYS rosuvastatin (CRESTOR) 20 mg tablet Take 20 mg by mouth once daily. lansoprazole (PREVACID) 30 mg capsule Take 1 capsule by mouth once daily. amLODIPine (NORVASC) 10 mg tablet Take 1 tablet by mouth once daily. Psyllium (METAMUCIL) powd Take by mouth. MULTIVITAMIN TAB Take one(1) tablet daily. No current facility-administered medications on file prior to visit. 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 Social History Main Topics Smoking status: Never Smoker Smokeless tobacco: Never Used Comment: Father smoked in childhood home. ETS when visiting 2 sisters. Alcohol use: Yes Comment: Occasional glass of wine. Drug use: No Social History Narrative Sister in law Anushka Ornelas 7 brothers and sisters, Elizabeth Owens and Petar Ornelas FATHER had CABG [address] Pulido Review of Symptoms REVIEW OF SYSTEMS GENERAL: No weight loss, malaise or fevers RESPIRATORY: Negative for cough, hemoptysis, wheezing, COPD, dyspnea or shortness of breath CARDIOVASCULAR: Negative for chest pain, leg swelling, hypertension, CHF or palpitations GI: No nausea, vomiting, or diarrhea SKIN: See HPI EXAM: BP 124/74 Pulse 88 Resp 12 Wt 113.4 kg (250 lb) BMI 47.24 kg/m? General Appearance: Well appearing, alert, in no acute distress, well-hydrated, well nourished.Morbidly obese. Skin: 6 cm semisolid mass on left lateral hip, non mobile, non tender. Possible lipoma vs cyst. Lungs: lungs clear to auscultation. No wheezing, rhonchi, rales. Heart: RRR without murmur, gallop, or rubs. No ectopy. Abdomen: Normal abdominal exam, Abdomen soft, non-tender. Bowel sounds normal. No masses, organomegaly. Extremities: No deformities, edema, skin discoloration, clubbing or cyanosis. Good capillary refill. . Musculoskeletal: bony protrusion just medial to right AC joint, non tender. . Feet: Shoes and socks removed, No deformities, ulcers, calluses, normal distal pulses and sensitive to 10 gm monofilament Health Maintenance List DIABETIC FOOT EXAM due on 08/04/2017 INFLUENZA(1) due on 07/01/2018 HBA1C due on 09/08/2018 STATIN MED ADHERENCE due on 09/30/2018 DIABETES MED ADHERENCE due on 09/30/2018 URINE ALBUMIN:CREATININE RATIO due on 03/08/2019 DILATED RETINAL EXAM due on 03/10/2019 MAMMOGRAM due on 03/22/2019 ANNUAL PCP TEAM CHRONIC DISEASE VISIT due on 06/23/2019 LDL CHOLESTEROL due on 06/28/2019 BP CONTROLLED (<130/80) due on 07/04/2019 DTAP,TDAP,TD(2 - Td) due on 10/21/2026 COLORECTAL CANCER SCREENING,SEE MODIFIER due on 03/28/2028 BONE DENSITY Completed ADULT PREVNAR-13 Completed HEPATITIS C SCREENING Completed Data reviewed Component Latest Ref Rng AND Units 06/23/2018 06/28/2018 WBC 3.70 - 11.00 k/uL 10.95 RBC 3.90 - 5.20 m/uL 4.34 Hemoglobin 11.5 - 15.5 g/dL 13.2 Hematocrit 36.0 - 46.0 % 39.9 MCV 80.0 - 100.0 fL 91.9 MCH 26.0 - 34.0 pG 30.4 MCHC 30.5 - 36.0 g/dL 33.1 RDW-CV 11.5 - 15.0 % 13.4 Platelet Count 150 - 400 k/uL 302 MPV 9.0 - 12.7 fL 9.7 Neut% % 64.1 Abs Neut (ANC) 1.45 - 7.50 k/uL 7.01 Lymph% % 24.7 Abs Lymph 1.00 - 4.00 k/uL 2.71 Baldwin% % 8.5 Abs Baldwin <0.87 k/uL 0.93 (H) Eosin% % 2.1 Abs Eosin <0.46 k/uL 0.23 Baso% % 0.6 Abs Baso <0.11 k/uL 0.07 Nucleated Reds 0 /100 WBC 0.0 Absolute nRBC <0.01 k/uL <0.01 Diff Type Auto Diff Protein, Total 6.3 - 8.0 g/dL 7.5 7.4 Albumin 3.9 - 4.9 g/dL 4.4 4.4 Calcium 8.5 - 10.2 mg/dL 9.7 9.8 Bilirubin, Total 0.2 - 1.3 mg/dL 0.4 0.3 Alkaline Phosphatase 32 - 117 U/L 70 63 AST 13 - 35 U/L 22 16 Glucose 74 - 99 mg/dL 103 (H) 110 (H) BUN 7 - 21 mg/dL 22 (H) 26 (H) Creatinine 0.58 - 0.96 mg/dL 0.62 0.73 Sodium 136 - 144 mmol/L 141 140 Potassium 3.7 - 5.1 mmol/L 4.2 4.1 Chloride 97 - 105 mmol/L 100 97 CO2 22 - 30 mmol/L 25 28 Anion Gap 9 - 18 mmol/L 16 15 ALT 7 - 38 U/L 16 13 eGFR- >60 >60 eGFR-All Other Races . >60 >60 Cholesterol, Total <200 mg/dL 153 Triglyceride <150 mg/dL 136 HDL Cholesterol >39 mg/dL 57 LDL Cholesterol <100 mg/dL 69 Non HDL Cholesterol <130 mg/dL 96 Fasting Time hrs 11 VLDL Cholesterol <30 mg/dL 27 TC:HDL Ratio <5.10 2.68 LDL:HDL Ratio <2.54 1.21 Lipase 16 - 61 U/L 33 Vitamin D 25 Hydroxy 31.0 - 80.0 ng/mL 43.8 ASSESSMENT/PLAN: 1. Controlled type 2 diabetes mellitus without complication, without long-term current use of insulin (HCC) - ICD9: 250.00, ICD10: E11.9 (primary diagnosis) Controlled. - Daily Asprin therapy recommended - Follow up in 6 months, sooner should any other issues arise. - Discussed diabetic education issues of salvage determiner diabetic complications, hypoglycemic symptoms, hyperglycemic symptoms, diet and importance of exercise with patient. - HEMOGLOBIN A1C (POC) - COMP METABOLIC PANEL - HGB A1C - ALBUMIN/CREAT RATIO RND UR 2. Essential hypertension - ICD9: 401.9, ICD10: I10 - good control - Continue current medication(s) - Encouraged dietary sodium restriction/DASH diet - Recommended regular aerobic exercise. - Reviewed risks of HTN and principles of treatment - Goal of BP <140/90 3. Hypothyroidism, unspecified type - ICD9: 244.9, ICD10: E03.9 - check TSH today - continue current dose of Synthroid 0.050 mg 4. BMI 45.0-49.9, adult (HCC) - ICD9: V85.42, ICD10: Z68.42 Improved diet and exercise. Will discuss further at future OV. 5. Gastroesophageal reflux disease without esophagitis - ICD9: 530.81, ICD10: K21.9 - Continue treatment with Prevacid 30 mg QD 6. Other hyperlipidemia - ICD9: 272.4, ICD10: E78.49 - good control - Continue current medication. - Encouraged following a low fat, low cholesterol diet. - Discussed the benefits of regular aerobic exercise and weight loss. 7. Lump of skin of upper extremity, right - ICD9: 782.2, ICD10: R22.31 Possible bony lesion/mass. Obtain xray to confirm. - XR SHOULDER [id number] AP/TRUE AP RT 8. Lipoma of left thigh - ICD9: 214.8, ICD10: D17.24 - US EXTREMITY MASS/FLUID COLLECTION LT Francine Reid MD CNPTOUTREACH Observed: 08/15/2018 Status: COMPLETED Source: [place] 12:[address] [facility] [place] REPOSITORY Patient Outreach (FAMPST) MACY DOWNEY ([id number]) 1950 F Date Time Provider Department 08/15/18 FRANCINE REID) FAMPST During your visit today, we recorded the following information about you: Allergies As of Date: 08/15/2018 Noted Allergy Reaction AMOXICILLIN 02/21/2009 6 - Diarrhea GLUCOPHAGE XR (METFORMIN HCL) 03/29/2007 6 - Diarrhea 8 - GI Upset Comments: Bloating CYMBALTA (DULOXETINE) 06/28/2017 14 - Other: See Comments Comments: Neuropathy , electrical shocks GLIPIZIDE 06/28/2017 16 - Unknown NEXIUM (ESOMEPRAZOLE MAGNESIUM) 08/04/2016 14 - Other: See Comments Comments: Ineffective OMEPRAZOLE 08/04/2016 14 - Other: See Comments Comments: Ineffective PROTONIX (PANTOPRAZOLE SODIUM) 08/04/2016 14 - Other: See Comments Comments: Ineffective ALTACE (RAMIPRIL) 08/04/2005 14 - Other: See Comments Comments: Blurred vision ZANTAC (RANITIDINE HCL) 08/04/2005 2 - Rash 9 - Itching Date Reviewed: 07/04/2018 Reviewed by: Celia Lopes - Fully Assessed Visit Diagnosis:Medication management [Z79.899] Order(s):TSH BLD [SQTSH] Order #: [id number] FUTURE Prescriptions as of 08/15/2018 Sig: X ESTRADIOL 0.0375 MG/24 HR WEE* Apply 1 Patch as directed onc* LEVOTHYROXINE 50 MCG TABLET TAKE 1 TABLET BY MOUTH ONCE D* TRIAMTERENE 37.5 MG-HYDROCHLO* TAKE 1/2 TABLET BY MOUTH ONCE* KLOR-CON 10 MEQ TABLET,EXTEND* TAKE 2 TABLETS BY MOUTH TWICE* CYCLOBENZAPRINE 5 MG TABLET Take 1 tablet by mouth three * CHOLECALCIFEROL (VITAMIN D3) * Take 5,000 Units by mouth onc* LOSARTAN 25 MG TABLET Take 0.5 tablets by mouth onc* FLUTICASONE 50 MCG/ACTUATION * Use 2 Sprays in each nostril * PEN NEEDLE, DIABETIC 30 GAUGE* 1 Device once daily. VICTOZA 2-COCO 0.6 MG/0.1 ML (* INJECT 1.2 MILLIGRAM(S) BY PULLIAM* ROSUVASTATIN 20 MG TABLET Take 20 mg by mouth once della* LANSOPRAZOLE 30 MG CAPSULE,DE* Take 1 capsule by mouth once * AMLODIPINE 10 MG TABLET Take 1 tablet by mouth once d* PSYLLIUM ORAL POWDER Take by mouth. MULTIVITAMIN TABLET Take one(1) tablet daily. Problem List As Of Date 08/15/2018 Noted Resolved Type II or unspecified type diabetes mellitus w* 07/27/2014 Rheumatoid arthritis (HCC) [M06.9] More... More... ASTHMA UNSPECIFIED [J45.909] More... More... Diffuse cystic mastopathy [N60.19] 08/04/2016 HYPERTENSION NOS [I10] 08/05/2015 ALLERGY, UNSPECIFIED [T78.40XA] HYPERLIPIDEMIA NEC/NOS [E78.5] INVALID FOR* Sprain and strain of unspecified site of should*INVALID FOR*08/04/2016 More... OBESITY [E66.9] INVALID FOR*02/06/2015 Multinodular goiter (nontoxic) [E04.2] INVALID FOR* More... Abdominal pain [R10.9] INVALID FOR*10/19/2013 GERD (Gastroesophageal Reflux Disease) [K21.9] INVALID FOR* Abdominal pain, unspecified site [R10.9] INVALID FOR*10/17/2013 BMI 45.0-49.9, adult [Z68.42] INVALID FOR* DM w/ coma type II, uncontrolled (HCC) [E11.69,*INVALID FOR*07/27/2014 Diabetes mellitus type 2, controlled, without c*INVALID FOR* More... Chronic rheumatic arthritis (HCC) [M06.9] INVALID FOR*08/04/2016 Depression [F32.9] INVALID FOR* Vitamin D deficiency [E55.9] INVALID FOR* Essential hypertension [I10] Hypothyroidism [E03.9] Encounter Status:Closed by MICKY GONZALEZ on 09/15/18 PROGRESS Observed: 07/05/2018 Status: COMPLETED Source: [place] 3:17 PM [facility] RE[facility] O ID: [id number] Author: Dawn Mike Service: (none) Author Type: (none) Type: Progress Notes Filed: 07/05/2018 3:17 PM Note Text: Radiology Service Progress Note PATIENT NAME: Macy Downey DATE OF SERVICE: July 05, 2018 TIME: 3:17 PM PATIENT IDENTITY VERIFICATION COMPLETED USING TWO (2) METHODS: Patient confirmed name verbally and Date of . PATIENT GENDER DATA: Female. status: : No status: NO. PATIENT RELEVANT IMPLANT DATA REVIEWED: Not Applicable RADIOLOGY DEPARTMENT: CT; Exam(s) Completed: Abdomen/Pelvis PERIPHERAL IV DATA: Not applicable SIGNED BY: Dawn Farias Ct July 05, 2018 3:[address] ABD/PEL WO IVCON Observed: 07/05/2018 Status: F Source: [place] 3:[address] [facility] REPOSITORY * * *Final Report* * * DATE OF EXAM: Jul 05 2018 3:14PM [facility] 0531 - CT ABD/PEL WO IVCON / PROCEDURE REASON: multiple diagnoses * * * * Physician Interpretation * * * * EXAMINATION: CT ABDOMEN AND PELVIS WITHOUT IV CONTRAST CLINICAL HISTORY: . Right upper quadrant pain Unspecified abdominal pain TECHNIQUE: Non-IV contrast imaging of the abdomen and pelvis was performed using standard technique, scanning from just above the dome of the diaphragm to the symphysis pubis. Unenhanced imaging is limited for the evaluation of some intra-abdominal and pelvic pathology. MQ: CTAPWO_3 Contrast: IV: None Oral: 50 ml of 50ML Omnipaque [address] Radiation dose: Integrated Dose-length product (DLP) for this visit = 934 mGy*cm. CT Dose Reduction Employed: Automated exposure control (AEC) COMPARISON: 09/17/2013 RESULT: Abdomen / Pelvis: Liver: Unremarkable other than a low-attenuation lesion less than 5 mm in size in the hepatic dome which is similar to the prior. Biliary: No calcified gallstones and no biliary dilatation. Spleen: No splenomegaly. Pancreas: Unremarkable. Adrenals: No mass. Kidneys: No calculus. No hydronephrosis. GI Tract: No bowel dilation. Mild diverticulosis. Appendix not visualized. Lymph Nodes: No lymphadenopathy. Mesentery/peritoneum: No ascites. Retroperitoneum: No mass. Vasculature: Arterial atherosclerotic disease without aneurysm. Pelvis: No mass or ascites. Bones/Soft Tissues: No acute abnormality. Lower thorax: Small amount of scarring and tiny nodularity laterally at the right lung base is similar to the prior. No consolidation or pleural effusion. IMPRESSION: No acute appearing findings. Mild diverticulosis. NOTE: No imaging follow-up is recommended for any of the following incidentally detected lesions: liver lesions less than or equal to 0.5 cm, cystic kidney lesions less than 1.0 cm, or adrenal lesions less than or equal to 1.0 cm, in this adult patient (18 years or older). ACR Whitepaper: Managing Incidental Findings on Abdominal CT. JACR 2010; 7:754 Digital Media Intern: LARRY Transcribe Date/Time: Jul 06 2018 9:41A Dictated by : LITZY DICK MD This examination was interpreted and the report reviewed and electronically signed by: LITZY DICK MD on Jul 06 2018 9:58AM EST [id number] PROGRESS Observed: 07/04/2018 Status: COMPLETED Source: [place] 2:02 PM [facility] [place] REPOSITORY HNO ID: [id number] Author: Ree Fletcher Service: (none) Author Type: Physician Type: Progress Notes Filed: 07/04/2018 5:52 PM Note Text: Macy Downey is a 67 year old female who presents for problem visit for vaginal bleeding. HPI: Hx of endometriosis, menorrhagia - s/p SUNIL, BSO in 1987. Has had bright red bleeding after heavy lifting, initially like a light period then brown spotting. Lasts 1-2 days. Has noticed this over last 3-4 years. Off-and-on. Last noticed it in April; she reports she was cleaning and moving furniture. Still sexually active. No bleeding during or after intercourse. Was on Vivelle. Stopped Vivelle in February because she states she ran out of her prescription, was on it since the hysterectomy. Now night sweats every night. Hot flashes every day. Taking 3-4 showers a day because of this. Interfering with her sleep. No vaginal dryness. No vaginal discharge or pruritis. GynHx: No hx of abnormal pap smears prior to hysterectomy. No hx of STD's OBHx: x 3 PAST MEDICAL HISTORY Diagnosis Date - Abdominal pain, unspecified site - Acute gastritis 08/07/2009 - Allergy, unspecified not elsewhere classified - Diffuse cystic mastopathy - Diverticulosis of colon (without mention of hemorrhage) Diverticulosis - Empty sella (HCC) - Endometriosis s/p SUNIL BSO - Esophageal reflux - Esophagitis - Fatty liver disease, nonalcoholic - Heart murmur - Hiatal hernia 08/07/2009 - Hot flashes due to menopause - Hypothyroidism - Morbid obesity (HCC) - Multiple thyroid nodules yearly US - Myalgia and myositis, unspecified - Pulmonary fibrosis (HCC) 2016 minor in right lung - Pulmonary hypertension (HCC) Seen by Dr. Brar - Rheumatoid arthritis(714.0) - Superficial thrombophlebitis - Type II or unspecified type diabetes mellitus without mention of complication, not stated as uncontrolled - Unspecified asthma(493.90) - Unspecified chronic bronchitis (HCC) Chronic bronchitis - Unspecified essential hypertension PAST SURGICAL HISTORY Procedure Laterality Date - APPENDECTOMY 1966 - EGD W/O BRSH SPECIMEN W/BX 08/07/09 HH, gastritis - EGD W/O OR W/BRUSH/WASH 10/19/13 EGD - FNA WITH IMAGING 03/26/2010 U/S FNA right thyroid x 1 and left x 2 - LAPAROSCOPY DIAGNOSTIC endometriosis - PAST SURGICAL HISTORY OF 09/30/2015 Right heart cath, Left heart cath, left ventriculogram, coronary arteriography - [place] ANESTH,TOTAL KNEE ARTHROPLASTY Right 2016 - REMOVAL OF OVARY/TUBE(S) 1987 Salpingo-oophorectomy - REMOVAL OF TONSILS,<13 Y/O Tonsillectomy - TOTAL ABDOM HYSTERECTOMY 1987 Hysterectomy, SUNIL for benign tumor FAMILY HISTORY Problem Relation Age of Onset - Heart Father - Thyroid Father - Heart Mother - other (Pulmonary fibrosis) Mother IPF? 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 Social History Main Topics Smoking status: Never Smoker Smokeless tobacco: Never Used Comment: Father smoked in childhood home. ETS when visiting 2 sisters. Alcohol use: Yes Comment: Occasional glass of wine. Drug use: No Social History Narrative Sister in law Anushka Ornelas 7 brothers and sisters, Elizabeth Owens and Petar Ornelas FATHER had CABG [address] Pulido Current Outpatient Prescriptions: KLOR-CON 10 10 mEq tablet TAKE 2 TABLETS BY MOUTH TWICE DAILY. cyclobenzaprine (FLEXERIL) 5 mg tablet Take 1 tablet by mouth three times daily as needed for Muscle Spasm. cholecalciferol (VITAMIN D-3) 5,000 unit tab Take 5,000 Units by mouth once daily. losartan (COZAAR) 25 mg tablet Take 0.5 tablets by mouth once daily. fluticasone (FLONASE) 50 mcg/actuation nasal spray Use 2 Sprays in each nostril once daily. levothyroxine (LEVOXYL) 50 mcg tablet Take 1 tablet by mouth once daily. Insulin Odem, Disposable, (NOVOFINE 30) 30 gauge x 1/3 ndle 1 Device once daily. triamterene-hydrochlorothiazide (MAXZIDE-25) 37.5-25 mg per tablet TAKE 1/2 TABLET BY MOUTH ONCE DAILY VICTOZA 2-COCO 0.6 mg/0.1 mL (18 mg/3 mL) pnij INJECT 1.2 MILLIGRAM(S) BY SUBCUTANEOUS ROUTE , 1 TIME PER DAY , FOR 30 DAYS rosuvastatin (CRESTOR) 20 mg tablet Take 20 mg by mouth once daily. lansoprazole (PREVACID) 30 mg capsule Take 1 capsule by mouth once daily. amLODIPine (NORVASC) 10 mg tablet Take 1 tablet by mouth once daily. Psyllium (METAMUCIL) powd Take by mouth. MULTIVITAMIN TAB Take one(1) tablet daily. [START ON 07/05/2018] estradiol (VIVELLE-DOT) 0.025 mg/24 hr Apply 1 Patch as directed every Tuesday and Tuesday. TWICE WEEKLY No current facility-administered medications for this visit. Allergies As of Date: 07/04/2018 Allergen Noted Reaction AMOXICILLIN 02/21/2009 Diarrhea GLUCOPHAGE XR [METFORMIN HCL] 03/29/2007 Diarrhea and GI Upset CYMBALTA [DULOXETINE] 06/28/2017 Other: See Comments GLIPIZIDE 06/28/2017 Unknown NEXIUM [ESOMEPRAZOLE MAGNESIUM] 08/04/2016 Other: See Comments OMEPRAZOLE 08/04/2016 Other: See Comments PROTONIX [PANTOPRAZOLE SODIUM] 08/04/2016 Other: See Comments ALTACE [RAMIPRIL] 08/04/2005 Other: See Comments ZANTAC [RANITIDINE HCL] 08/04/2005 Rash and Itching Fully Assessed 07/04/2018 REVIEW OF SYSTEMS Abdomen: No abdominal pain, nausea, vomiting, diarrhea, or constipation. Bladder: No dysuria, gross hematuria, urinary frequency, urinary urgency, or incontinence. Expanded ROS: GENERAL: No weight loss, malaise or fevers Allergies and current medication updated:Yes EXAM: BP 112/62 Wt 248 lb 3.2 oz (112.6kg) GENERAL: pleasant, female in no apparent distress HEENT: Normocephalic and atraumatic NECK: full range of motion DERMATOLOGY: Normal and without lesions CHEST: Normal inspiratory effort ABDOMEN: soft, non-tender and no masses PELVIC: external genitalia normal, no vulvar lesions. Atrophic appearing vaginal mucosa, but otherwise normal. Vaginal cuff intact. No vaginal lesions or masses. No bleeding or discharge BIMANUAL: no adnexal masses and non-tender NEURO: alert and oriented x3,exam grossly non-focal EXTREMITIES: normal ASSESSMENT AND PLAN: Encounter Diagnosis ICD-10-CM 1. Vaginal bleeding N93.9 2. Vasomotor symptoms due to menopause N95.1 estradiol (VIVELLE- DOT) 0.025 mg/24 hr VB: No signs of infection, prolapse, vaginal masses/lesions, etc to cause bleeding. Cuff intact. Likely due to atrophy Vasomotor symptoms: Reviewed risks and benefits of HRT, and discussed risk differences between estrogen-only and estrogen combined with progesterone. Discussed that HRT should be individualized, and as long as she understands her risks she can continue Vivelle given that her vasomotor symptoms are severe enough for her that it is interfering with her daily life. She understands the risks and would like to continue Vivelle. Sent rx for Vivelle. Discussed starting at lowest dose possible, to attempt to control her symptoms with low dose Return for annual exams Ree Fletcher DO CNOV Observed: 07/04/2018 Status: COMPLETED Source: [place] 2:[address] [facility] REPOSITORY Office Visit (WOOB) MACY DOWNEY ([id number]) 1950 F Date Time Provider Department 07/04/18 2:00 PM REE FLETCHER During your visit today, we recorded the following information about you: Blood pressure Weight 112/62 112.6 kg Ree Fletcher MD 07/04/2018 5:52 PM Signed Macy Downey is a 67 year old female who presents for problem visit for vaginal bleeding. HPI: Hx of endometriosis, menorrhagia - s/p SUNIL, BSO in 1987. Has had bright red bleeding after heavy lifting, initially like a light period then brown spotting. Lasts 1-2 days. Has noticed this over last 3-4 years. Off-and-on. Last noticed it in April; she reports she was cleaning and moving furniture. Still sexually active. No bleeding during or after intercourse. Was on Vivelle. Stopped Vivelle in February because she states she ran out of her prescription, was on it since the hysterectomy. Now night sweats every night. Hot flashes every day. Taking 3-4 showers a day because of this. Interfering with her sleep. No vaginal dryness. No vaginal discharge or pruritis. GynHx: No hx of abnormal pap smears prior to hysterectomy. No hx of STD's OBHx: x 3 PAST MEDICAL HISTORY Diagnosis Date - Abdominal pain, unspecified site - Acute gastritis 08/07/2009 - Allergy, unspecified not elsewhere classified - Diffuse cystic mastopathy - Diverticulosis of colon (without mention of hemorrhage) Diverticulosis - Empty sella (HCC) - Endometriosis s/p SUNIL BSO - Esophageal reflux - Esophagitis - Fatty liver disease, nonalcoholic - Heart murmur - Hiatal hernia 08/07/2009 - Hot flashes due to menopause - Hypothyroidism - Morbid obesity (HCC) - Multiple thyroid nodules yearly US - Myalgia and myositis, unspecified - Pulmonary fibrosis (HCC) 2016 minor in right lung - Pulmonary hypertension (HCC) Seen by Dr. Brar - Rheumatoid arthritis(714.0) - Superficial thrombophlebitis - Type II or unspecified type diabetes mellitus without mention of complication, not stated as uncontrolled - Unspecified asthma(493.90) - Unspecified chronic bronchitis (HCC) Chronic bronchitis - Unspecified essential hypertension PAST SURGICAL HISTORY Procedure Laterality Date - APPENDECTOMY 1966 - EGD W/O BRSH SPECIMEN W/BX 08/07/09 HH, gastritis - EGD W/O OR W/BRUSH/WASH 10/19/13 EGD - FNA WITH IMAGING 03/26/2010 U/S FNA right thyroid x 1 and left x 2 - LAPAROSCOPY DIAGNOSTIC endometriosis - PAST SURGICAL HISTORY OF 09/30/2015 Right heart cath, Left heart cath, left ventriculogram, coronary arteriography - [place] ANESTH,TOTAL KNEE ARTHROPLASTY Right 2016 - REMOVAL OF OVARY/TUBE(S) 1987 Salpingo-oophorectomy - REMOVAL OF TONSILS,<13 Y/O Tonsillectomy - TOTAL ABDOM HYSTERECTOMY 1987 Hysterectomy, SUNIL for benign tumor FAMILY HISTORY Problem Relation Age of Onset - Heart Father - Thyroid Father - Heart Mother - other (Pulmonary fibrosis) Mother IPF? 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 Social History Main Topics Smoking status: Never Smoker Smokeless tobacco: Never Used Comment: Father smoked in childhood home. ETS when visiting 2 sisters. Alcohol use: Yes Comment: Occasional glass of wine. Drug use: No Social History Narrative Sister in law Anushka Ornelas 7 brothers and sisters, Elizabeth Owens and Petar Ornelas FATHER had CABG [address] Pulido Current Outpatient Prescriptions: KLOR-CON 10 10 mEq tablet TAKE 2 TABLETS BY MOUTH TWICE DAILY. cyclobenzaprine (FLEXERIL) 5 mg tablet Take 1 tablet by mouth three times daily as needed for Muscle Spasm. cholecalciferol (VITAMIN D-3) 5,000 unit tab Take 5,000 Units by mouth once daily. losartan (COZAAR) 25 mg tablet Take 0.5 tablets by mouth once daily. fluticasone (FLONASE) 50 mcg/actuation nasal spray Use 2 Sprays in each nostril once daily. levothyroxine (LEVOXYL) 50 mcg tablet Take 1 tablet by mouth once daily. Insulin Odem, Disposable, (NOVOFINE 30) 30 gauge x 1/3 ndle 1 Device once daily. triamterene-hydrochlorothiazide (MAXZIDE-25) 37.5-25 mg per tablet TAKE 1/2 TABLET BY MOUTH ONCE DAILY VICTOZA 2-COCO 0.6 mg/0.1 mL (18 mg/3 mL) pnij INJECT 1.2 MILLIGRAM(S) BY SUBCUTANEOUS ROUTE , 1 TIME PER DAY , FOR 30 DAYS rosuvastatin (CRESTOR) 20 mg tablet Take 20 mg by mouth once daily. lansoprazole (PREVACID) 30 mg capsule Take 1 capsule by mouth once daily. amLODIPine (NORVASC) 10 mg tablet Take 1 tablet by mouth once daily. Psyllium (METAMUCIL) powd Take by mouth. MULTIVITAMIN TAB Take one(1) tablet daily. [START ON 07/05/2018] estradiol (VIVELLE-DOT) 0.025 mg/24 hr Apply 1 Patch as directed every Tuesday and Tuesday. TWICE WEEKLY No current facility-administered medications for this visit. Allergies As of Date: 07/04/2018 Allergen Noted Reaction AMOXICILLIN 02/21/2009 Diarrhea GLUCOPHAGE XR [METFORMIN HCL] 03/29/2007 Diarrhea and GI Upset CYMBALTA [DULOXETINE] 06/28/2017 Other: See Comments GLIPIZIDE 06/28/2017 Unknown NEXIUM [ESOMEPRAZOLE MAGNESIUM] 08/04/2016 Other: See Comments OMEPRAZOLE 08/04/2016 Other: See Comments PROTONIX [PANTOPRAZOLE SODIUM] 08/04/2016 Other: See Comments ALTACE [RAMIPRIL] 08/04/2005 Other: See Comments ZANTAC [RANITIDINE HCL] 08/04/2005 Rash and Itching Fully Assessed 07/04/2018 REVIEW OF SYSTEMS Abdomen: No abdominal pain, nausea, vomiting, diarrhea, or constipation. Bladder: No dysuria, gross hematuria, urinary frequency, urinary urgency, or incontinence. Expanded ROS: GENERAL: No weight loss, malaise or fevers Allergies and current medication updated:Yes EXAM: BP 112/62 Wt 248 lb 3.2 oz (112.6kg) GENERAL: pleasant, female in no apparent distress HEENT: Normocephalic and atraumatic NECK: full range of motion DERMATOLOGY: Normal and without lesions CHEST: Normal inspiratory effort ABDOMEN: soft, non-tender and no masses PELVIC: external genitalia normal, no vulvar lesions. Atrophic appearing vaginal mucosa, but otherwise normal. Vaginal cuff intact. No vaginal lesions or masses. No bleeding or discharge BIMANUAL: no adnexal masses and non-tender NEURO: alert and oriented x3,exam grossly non-focal EXTREMITIES: normal ASSESSMENT AND PLAN: Encounter Diagnosis ICD-10-CM 1. Vaginal bleeding N93.9 2. Vasomotor symptoms due to menopause N95.1 estradiol (VIVELLE- DOT) 0.025 mg/24 hr VB: No signs of infection, prolapse, vaginal masses/lesions, etc to cause bleeding. Cuff intact. Likely due to atrophy Vasomotor symptoms: Reviewed risks and benefits of HRT, and discussed risk differences between estrogen-only and estrogen combined with progesterone. Discussed that HRT should be individualized, and as long as she understands her risks she can continue Vivelle given that her vasomotor symptoms are severe enough for her that it is interfering with her daily life. She understands the risks and would like to continue Vivelle. Sent rx for Vivelle. Discussed starting at lowest dose possible, to attempt to control her symptoms with low dose Return for annual exams Ree Fletcher DO Referring Provider: FRANCINE REID) [[id number]] Allergies As of Date: 07/04/2018 Noted Allergy Reaction AMOXICILLIN 02/21/2009 6 - Diarrhea GLUCOPHAGE XR (METFORMIN HCL) 03/29/2007 6 - Diarrhea 8 - GI Upset Comments: Bloating CYMBALTA (DULOXETINE) 06/28/2017 14 - Other: See Comments Comments: Neuropathy , electrical shocks GLIPIZIDE 06/28/2017 16 - Unknown NEXIUM (ESOMEPRAZOLE MAGNESIUM) 08/04/2016 14 - Other: See Comments Comments: Ineffective OMEPRAZOLE 08/04/2016 14 - Other: See Comments Comments: Ineffective PROTONIX (PANTOPRAZOLE SODIUM) 08/04/2016 14 - Other: See Comments Comments: Ineffective ALTACE (RAMIPRIL) 08/04/2005 14 - Other: See Comments Comments: Blurred vision ZANTAC (RANITIDINE HCL) 08/04/2005 2 - Rash 9 - Itching Date Reviewed: 07/04/2018 Reviewed by: Celia Lopes - Fully Assessed Reason for Visit: Menstrual Problem [67] Primary Visit Diagnosis:Vaginal bleeding [N93.9] Other Visit Diagnosis:Vasomotor symptoms due to menopause [N95.1] Order(s):[START ON 07/05/2018] estradiol (VIVELLE-DOT) 0.025 mg/24 hrApply 1 Patch as directed every Tuesday and Tuesday. TWICE WEEKLYDisp: 8 PatchRfl: 11 Prescriptions as of 07/04/2018 Sig: KLOR-CON 10 MEQ TABLET,EXTEND* TAKE 2 TABLETS BY MOUTH TWICE* CYCLOBENZAPRINE 5 MG TABLET Take 1 tablet by mouth three * CHOLECALCIFEROL (VITAMIN D3) * Take 5,000 Units by mouth onc* LOSARTAN 25 MG TABLET Take 0.5 tablets by mouth onc* FLUTICASONE 50 MCG/ACTUATION * Use 2 Sprays in each nostril * LEVOTHYROXINE 50 MCG TABLET Take 1 tablet by mouth once d* PEN NEEDLE, DIABETIC 30 GAUGE* 1 Device once daily. TRIAMTERENE 37.5 MG-HYDROCHLO* TAKE 1/2 TABLET BY MOUTH ONCE* VICTOZA 2-COCO 0.6 MG/0.1 ML (* INJECT 1.2 MILLIGRAM(S) BY PULLIAM* ROSUVASTATIN 20 MG TABLET Take 20 mg by mouth once della* LANSOPRAZOLE 30 MG CAPSULE,DE* Take 1 capsule by mouth once * AMLODIPINE 10 MG TABLET Take 1 tablet by mouth once d* PSYLLIUM ORAL POWDER Take by mouth. MULTIVITAMIN TABLET Take one(1) tablet daily. ESTRADIOL 0.025 MG/24 HR SEMI* Apply 1 Patch as directed katlyn* Problem List As Of Date 07/04/2018 Noted Resolved Type II or unspecified type diabetes mellitus w* 07/27/2014 Rheumatoid arthritis (HCC) [M06.9] More... More... ASTHMA UNSPECIFIED [J45.909] More... More... Diffuse cystic mastopathy [N60.19] 08/04/2016 HYPERTENSION NOS [I10] 08/05/2015 ALLERGY, UNSPECIFIED [T78.40XA] HYPERLIPIDEMIA NEC/NOS [E78.5] INVALID FOR* Sprain and strain of unspecified site of should*INVALID FOR*08/04/2016 More... OBESITY [E66.9] INVALID FOR*02/06/2015 Multinodular goiter (nontoxic) [E04.2] INVALID FOR* More... Abdominal pain [R10.9] INVALID FOR*10/19/2013 GERD (Gastroesophageal Reflux Disease) [K21.9] INVALID FOR* Abdominal pain, unspecified site [R10.9] INVALID FOR*10/17/2013 BMI 45.0-49.9, adult [Z68.42] INVALID FOR* DM w/ coma type II, uncontrolled (HCC) [E11.69,*INVALID FOR*07/27/2014 Diabetes mellitus type 2, controlled, without c*INVALID FOR* More... Chronic rheumatic arthritis (HCC) [M06.9] INVALID FOR*08/04/2016 Depression [F32.9] INVALID FOR* Vitamin D deficiency [E55.9] INVALID FOR* Essential hypertension [I10] Hypothyroidism [E03.9] Prescriptions ordered this encounter Disp Refills Start End ESTRADIOL 0.025 MG/24 HR SEMIWEEKLY * 8 Pa* 11 07/05/2018 Route: TRANSDERM. Sig: Apply 1 Patch as directed every Tuesday and Tuesday. TWICE WEEKLY Medications Discontinued During This Encounter estradiol (VIVELLE-DOT) 0.1 mg/24 hr 07/04/2018 Class: Historical Med Route: TRANSDERMAL Sig: Apply 1 Patch as directed once each week. Disc: Reason for discontinue is not on file. Level of Service: EST PATIENT VISIT LEVEL 3 [[id number]] Disposition: Return in about 1 year (around 07/04/2019) for well woman. Follow-up and Disposition History Recorded Encounter Status:Closed by REE FLETCHER MD on 07/04/18 CARDIOLOGY VISIT Observed: 06/28/2018 Status: F Source: [facility] 5:37 PM [facility] REPOSITORY [facility] [address] [place] [address]. [address] [place] [address] OFFICE VISIT Date of Service: 06/28/18 MR#: [id number] Acct: [id number] Name: MACY DOWNEY Rep #: [id number] : 1950 Provider: Hernesto Brar MD Age/Sex: 67/F [place] [facility] [place] Signed HPI HPI Details: MACY DOWNEY, is a 67 F who presents to the office today for outpatient follow-up. Overall from a cardiac standpoint she states she has been doing reasonably well. She has symptoms that are similar to her previous symptoms without significant change. She describes no new acute symptoms of over angina pectoris, CHF/pulmonary edema, near syncope or syncope. Her main concerns revolve around her musculoskeletal issues and the need for an upcoming left knee evaluation and right foot evaluation which may lead to additional surgery. Intake Vital Signs06/28/18 Height 5 ft 2 in 06/28/18 Weight: 247 lb 06/28/18 Body Mass Index (BMI) 45.1 06/28/18 Blood Pressure 138/64 Intake Visit Reasons: 6 M FU Allergies amoxicillin Allergy (Verified 06/28/18 14:39) Unknown duloxetine [From Cymbalta] Allergy (Verified 06/28/18 14:39) neuropathy losartan [Losartan] Allergy (Verified 06/28/18 14:39) Unknown ramipril Allergy (Verified 06/28/18 14:39) Unknown ranitidine HCl [From Zantac] Allergy (Verified 06/28/18 14:39) Unknown celecoxib [From Celebrex] Adverse Reaction (Verified 06/28/18 14:39) Upset Stomach cortisone Adverse Reaction (Verified 06/28/18 14:39) emotional issues glimepiride Adverse Reaction (Verified 06/28/18 14:39) Nausea/Vom/Diarrhea metformin HCl [From Glucophage] Adverse Reaction (Verified 06/28/18 14:39) Nausea/Vom/Diarrhea methotrexate Adverse Reaction (Verified 06/28/18 14:39) Unknown Penicillins Adverse Reaction (Verified 06/28/18 14:39) Nausea/Vom/Diarrhea Medications Fluticasone 0.05% [Flonase Nasal Reagan] 1 spray NASAL DAILY PRN 09/29/15 [History Confirmed 06/28/18] Levothyroxine Sodium [Levoxyl] 50 mcg PO DAILY 09/29/15 [History Confirmed 06/28/18] Loratadine [Claritin] 10 mg PO PRN PRN 09/29/15 [History Confirmed 06/28/18] Multivitamins,Therapeutic [Multivitamin] 1 tab PO DAILY 09/29/15 [History Confirmed 06/28/18] Potassium Chloride [Klor-Con 10] 20 meq PO BID 09/29/15 [History Confirmed 06/28/18] Psyllium Seed (with Sugar) [Metamucil Powder] 575 gm PO DAILY PRN 09/29/15 [History Confirmed 06/28/18] Triamterene/Hydrochlorothiazid [Triamterene-Hctz 37.5-25 mg Tb] 0.5 tab PO QHS 09/29/15 [History Confirmed 06/28/18] Cholecalciferol (Vitamin D3) [Vitamin D3] 5,000 unit PO DAILY 08/24/17 [History Confirmed 06/28/18] Liraglutide [Victoza] 1.25 mg SQ 1300 08/24/17 [History Confirmed 06/28/18] Rosuvastatin Calcium [Crestor] 20 mg PO QHS 08/24/17 [History Confirmed 06/28/18] amlodipine 10 mg tablet 10 mg PO DAILY #90 tab 02/27/18 [Rx Confirmed 06/28/18] Losartan Potassium [Cozaar] 12.5 mg PO DAILY 03/24/18 [History Confirmed 06/28/18] lansoprazole 30 mg capsule,delayed release 30 mg PO DAILY cap 06/28/18 [History Confirmed 06/28/18] meloxicam 15 mg tablet 15 mg PO DAILY 06/28/18 [History Confirmed 06/28/18] [facility] Medical History Multiple thyroid nodules (Acute) Screening for intestinal cancer (Acute) GERD (gastroesophageal reflux disease) (Acute) Chest pain, unspecified (Chronic) HTN (hypertension) (Chronic) Left carotid artery stenosis (Chronic) HLD (hyperlipidemia) (Chronic) Diabetes mellitus (Chronic) Fatigue (Chronic) Visual disturbance (Chronic) Pulmonary hypertension (Chronic) Surgical History S/P thyroid biopsy (Acute 02/2018) History of knee replacement (Resolved) Family History Father CAD (coronary artery disease) Ischemic cardiomyopathy Mother Atrial fibrillation CHF (congestive heart failure) Pulmonary fibrosis Sister Myocardial infarction Diabetes Gilliam disease COPD (chronic obstructive pulmonary disease) Hypertension Brother Cancer Pancreatic CA Diabetes Atrial fibrillation Social History Smoking Status: Never smoker alcohol intake: current alcohol intake frequency: holidays/special occasions only Alcohol type: wine substance use type: does not use caffeine: Yes Type: coffee what type of physical activity do you participate in: other details: physical therapy frequency: 1-2 times per week duration: 45-60 minutes/day seatbelt use: always do you feel safe at home: Yes ROS Const Const: Positive for fatigue (increased); negative for weakness, weight gain, weight loss, frequent falls or excessive sweating Eyes Eyes: Negative for change in vision, blurry vision or transient loss of vision ENT ENT: Negative for dizziness or balance problems Cardio Chest Pain: Yes Palpitations: Yes (occasional) Edema: Bilateral Muscle aches with walking: None Additional Details: Continues with intermittant CP as previously noted. Resp Respiratory: Negative for SOB with activity or SOB at rest GI GI: Negative vomiting or vomiting blood/hematemesis : Negative for hematuria Musc Musc: Positive for muscle aches/ myalgia (lt knee and rt pedal); negative for balance problems, muscle weakness or joint pain Skin Skin: Negative non-healing lesions or rash Neuro Neuro: Negative for weakness, blurry vision, dizziness, lightheadedness, frequent falls or orthostatic symptoms Ed Hematologic/Lymphatic: Negative for easy bleeding Endo Endo: Positive for fatigue (increased); negative for excessive sweating Psych Psych: Negative for anxiety or depression Allergy Allergy/Immunology: Negative for hives, Negative for rash Cardiology Exam Const Appearance: cooperative, healthy appearing, comfortable, no acute distress, well developed and well groomed Nutritional Appearance: overweight Orientation: alert, awake and oriented x3 Head Head: normal to inspection, normocephalic and atraumatic Ears: hearing grossly normal bilaterally Nose: external nose normal Mouth: oral mucosae normal Teeth and gingiva: dentition normal Eyes General: appearance normal, both eyes and all related structures Eyelids: eyelids normal Conjunctivae: conjunctivae normal Pupils: PERRL EOM: EOM intact bilaterally Neck Neck: normal visual inspection Carotids: normal carotid upstroke Chest Chest inspection: normal inspection of the chest and symmetric chest movement Auscultation: Bilateral: Clear to Auscultation Cardio Palpation: normal PMI Rate: regular rate Rhythm: regular rhythm Heart sounds: S1 normal, S2 normal and positive S4 Murmur: Grade 2/6, harsh, mid systolic, LLSB, LVOT and sternal notch GI GI: normal to inspection, soft, no hepatosplenomegaly and bowel sounds present Neuro General: alert, awake and oriented x3 Skin Skin: no rashes or lesions noted Extremities Lower Extremity Edema: +1: Right (right foot is surgical type shoe) Right Lower Extremity: Prominent Varicose Veins. Musculoskel Musculoskeletal: joint tenderness Right Hip: Tenderness Psych Psychological: normal affect Supplemental Info She did have an echocardiogram on 10/17/2017. Interpretation Summary The study was technically difficult. Contrast injection was performed. Left ventricular systolic function is normal. The estimated ejection fraction is 60 %. The left atrium is mildly enlarged. There is mild to moderate mitral annular calcification. Extension of the mitral annular calcification onto the posterior mitral valve leaflet. Trivial mitral valve insufficiency. Trivial tricuspid valve insufficiency. Mild focal aortic valve thickening. Mild focal aortic valve calcification. Right ventricular systolic pressure estimated to be 21 mmHg. She had a stress test performed on 06/30/2015 through the [facility] system. She did have a diagnostic cardiac catheterization performed on 09/30/2015 based upon ongoing concerns. Final impression: 1. Elevated left ventricular end diastolic pressure compatible decreased diastolic compliance 2. Secondary pulmonary hypertension 3. Oxygen saturation: No obvious evidence of intracardiac shunting phenomena 4. Left ventricle: A. Normal left ventricular size, wall motion, and systolic function B. Estimated LVEF is 65% 5. Left main coronary artery: A. Large short vessel B. Angiographically normal 6. Left anterior descending coronary artery: A. Proximal minimal luminal irregularities 7. Left circumflex coronary artery: A. Angiographically normal 8. Right coronary artery: A. Moderate to large dominant vessel B. Angiographically normal 9. Mitral valve: A. Trace mitral valve regurgitation Assessment AND Plan 1. Pulmonary HTN I27.20 Plan At the present time she appears to be doing reasonably well with no acute symptoms or adverse events. She will continue combined medical management. 2. Essential hypertension I10 Plan Her blood pressure appears to be reasonably well-controlled at this time. She will continue her current medical therapy 3. Hyperlipidemia, unspecified hyperlipidemia type E78.5 Plan A copy of her most recent lipid labs would be appreciated for continuity of care. 4. Left carotid artery stenosis I65.22 Plan She does have a history of carotid artery disease. She has undergone evaluation the past with a carotid artery duplex study. This was performed in July 2015 at the [facility]. Per the report she had mild disease bilaterally. She did not require any form of vascular intervention. She continues risk factor evaluation and care. Plan Detail Additional Comments At the moment she is going to continue her current medical management. It was not felt she required additional cardiac diagnostic studies or therapeutic intervention. She will be scheduled for future outpatient cardiovascular follow-up appointment. In the interim if she does require orthopedic surgery was not felt she requires further cardiac diagnostic studies prior to her surgical procedure. She would need monitoring of her cardiac rate rhythm and blood pressure during and following her surgical procedure. An attempt should be made to avoid IV volume excess would bring out a volume overload situation. The above was discussed with the patient. She was agreeable to this approach. Thank you for allowing me to participate in the care of your patient. Please don't hesitate to call if any issues arise. This note was generated using a voice recognition system and there may be incorrect words, spelling or punctuation that were not noted when reviewing the office note prior to saving. Follow Up 9 Months Coding Level of Care Code Off vis,est,level 3 Diagnoses Pulmonary HTN I27.20 Essential hypertension I10 Hypertension type: essential hypertension Hyperlipidemia, unspecified hyperlipidemia type E78.5 Hyperlipidemia type: unspecified Left carotid artery stenosis I65.22 Coding Level of Care Code Off vis,est,level 3 Diagnoses Pulmonary HTN I27.20 Essential hypertension I10 Hypertension type: essential hypertension Hyperlipidemia, unspecified hyperlipidemia type E78.5 Hyperlipidemia type: unspecified Left carotid artery stenosis I65.22 06/28/18 1737 <Electronically signed by Hernesto Brar MD> Date Hernesto Brar MD Cosigner Signature: Date (if applicable) CC: Evert Reid MD COMP METABOLIC PANEL Collected: 06/28/2018 Status: F Source: [place] 8:25 AM [facility] REPOSITORY TYPE CODE TESTS RESULT OUT OF REFERENCE UNITS RANGE LAB TP 6.3-8.0 g/dL Protein, Total 7.4 LAB ALB 3.9-4.9 g/dL Albumin 4.4 LAB CA 8.5-10.2 mg/dL Calcium, Total 9.8 LAB TBIL 0.2-1.3 mg/dL Bilirubin, Total 0.3 LAB ALKP 32-117 U/L Alkaline Phosphatase 63 LAB AST 13-35 U/L AST 16 LAB GLU 74-99 mg/dL Glucose High 110 Result Comment: The [place] Diabetes Association (ADA) provides guidance for cutoff values for fasting glucose and random glucose. The ADA defines fasting as no caloric intake for at least 8 hours. Fas ting plasma glucose results between 100 to 125 mg/dL indicate increased risk for diabetes (prediabetes). Fasting plasma glucose results greater than or equal to 126 mg/dL meet the criteria for diagnosis of diabetes. In the absence of unequivocal hyperglycemia, results should be confirmed by repeat testing. In a patient with classic symptoms of hyperglycemia or hyperglycemic crisis, random plasma glucose results greater than or equal to 200 mg/dL meet the criteria for diagnosis of diabetes. Reference: Standards of Medical Care in Diabetes 2016, [place] [employer] Association. Diabetes Care. 2016.39(Suppl 1). LAB BUN 7-21 mg/dL BUN High 26 LAB CRET 0.58-0.96 mg/dL Creatinine 0.73 LAB NA 136-144 mmol/L Sodium 140 LAB K 3.7-5.1 mmol/L Potassium 4.1 LAB CL 97-105 mmol/L Chloride 97 LAB CO2 22-30 mmol/L CO2 28 LAB AGAP 9-18 mmol/L Anion Gap 15 LAB ALT 7-38 U/L ALT 13 LAB GFRAA eGFR- Amer. >60 LAB GFRNAA . eGFR-All Other Races >60 Result Comment: eGFR (Estimated GFR) Units of measure: mL/min/1.73 meters squared eGFR is derived from the reexpressed MDRD Study equation using the following parameters: serum creatinine, age, gender and race. The creatinine assay has been calibrated to be traceable to IDMS. An eGFR <60 mL/min/1.73m2 for >3 months is consistent with chronic kidney disease. Refer to KDOQI guidelines for clinical interpretation. In patients with unstable renal function, e.g. those with acute kidney injury, the eGFR may not accurately reflect actual GFR. Performed By: #### CMP, LIPB, VITD #### [facility] [address] [place] [id number] LIPID PANEL, BASIC Collected: 06/28/2018 Status: F Source: [place] 8:25 AM [facility] REPOSITORY TYPE CODE TESTS RESULT OUT OF REFERENCE UNITS RANGE LAB CHOL <200 mg/dL Cholesterol 153 Result Comment: <200 mg/dL, Desirable 200-239 mg/dL, Borderline high >239 mg/dL, High LAB TRIGLY <150 mg/dL Triglyceride 136 Result Comment: <150 mg/dL, Normal 150-199 mg/dL, Borderline high 200-499 mg/dL, High >499 mg/dL, Very high LAB HDL >39 mg/dL HDL-Cholesterol 57 Result Comment: 40-59 mg/dL, Acceptable >59 mg/dL, High: Negative risk factor for coronary heart disease <40 mg/dL, Low: Positive risk factor for coronary heart disease LAB LDL <100 mg/dL LDL-Cholesterol 69 Result Comment: <100 mg/dL, Optimal 100-129 mg/dL, Near optimal/above optimal 130-159 mg/dL, Borderline high 160-189 mg/dL, High >189 mg/dL, Very high Secondary prevention optimal LDL Cholesterol levels are recommended to be < 70 mg/dL LAB NONHDL <130 mg/dL Non HDL Cholesterol 96 Result Comment: <130 mg/dL, Optimal 130-159 mg/dL, Near optimal/above optimal 160-189 mg/dL, Borderline high 190-219 mg/dL, High >219 mg/dL, Very high Secondary prevention optimal non HDL Cholesterol levels are recommended to be < 100 mg/dL LAB FT hrs Fasting Time 11 LAB VLDL <30 mg/dL VLDL Cholesterol 27 LAB TCHDL <5.10 TC:HDL Ratio 2.68 LAB LDLHDL <2.54 LDL:HDL Ratio 1.21 Result Comment: Reference: 1. National Cholesterol Education Program ATP III Guideline At-A-Glance Quick Desk Reference: National Heart, Lung, and Blood [place]. National Institutes of Health. 2001: NIH Publication No. 01-3305. 2. An International Atherosclerosis Society position paper: global recommendations for the management of dyslipidemia: executive summary, Atherosclerosis. 2014: 232(2):410-413. Performed By: #### CMP, LIPB, VITD #### [facility] [address] [place] [id number] VITAMIN D 25 HYDROXY Collected: 06/28/2018 Status: F Source: [place] 8:25 AM [facility] REPOSITORY TYPE CODE TESTS RESULT OUT OF REFERENCE UNITS RANGE LAB VITD 31.0-80.0 ng/mL Vitamin D 25 43.8 Hydroxy Result Comment: Classification of 25 [place] Vitamin D status: Insufficiency/Moderate Deficiency: < or = 30 ng/mL Sufficiency/Optimal Levels: 31 to 80 ng/mL Toxicity: > 100 ng/mL Test performed by chemiluminescent immunoassay. Performed By: #### CMP, LIPB, VITD #### [facility] [address] [place], [place] [address] PROGRESS Observed: 06/28/2018 Status: COMPLETED Source: [place] 8:[address] [facility] REPOSITORY HNO ID: [id number] Author: Roxana Cuellar Rdms Service: (none) Author Type: (none) Type: Progress Notes Filed: 06/28/2018 8:22 AM Note Text: Radiology Service Progress Note PATIENT NAME: Macy Downey DATE OF SERVICE: June 28, 2018 TIME: 8:22 AM PATIENT IDENTITY VERIFICATION COMPLETED USING TWO (2) METHODS: Patient confirmed name verbally and Date of . PATIENT GENDER DATA: Female. status: : No status: NO. PATIENT RELEVANT IMPLANT DATA REVIEWED: Not Applicable RADIOLOGY DEPARTMENT: Ultrasound PERIPHERAL IV DATA: Not applicable SIGNED BY: Roxana Cuellar Rdms June 28, 2018 8:22 AM US ABD SPLEEN -NB Observed: 06/28/2018 Status: F Source: [place] 8:[address] [facility] REPOSITORY * * *Final Report* * * DATE OF EXAM: Jun 28 2018 8:21AM [facility]U 1232 - US ABD SPLEEN -NB / PROCEDURE REASON: Right upper quadrant pain * * * * Physician Interpretation * * * * EXAMINATION: RIGHT UPPER QUADRANT AND SPLEEN ULTRASOUND CLINICAL HISTORY: Right upper quadrant abdomen pain. TECHNIQUE: Sonography of the right upper quadrant was performed. Images were obtained and stored in a permanent archive. MQ: URUQ_1 COMPARISON: None. RESULT: Pancreas: The pancreas is not well-visualized secondary to limited sonographic window. Liver: Echotexture: Normal, homogeneous. Echogenicity: Mild diffusely increased echogenicity of the liver; nonspecific, however likely due to fatty change. Surface contour: Smooth Lesions: None. Biliary: No intrahepatic biliary duct dilation. CBD: 0.3 cm at the hilum. Gallbladder: Normal caliber -Contents: Few small echogenic densities are noted within the gallbladder, likely small gallstones. -Wall: Normal -Other: No pericholecystic fluid. Right Kidney: No hydronephrosis. The right kidney measures 10.6 cm in length. Ascites: None. Spleen: The spleen measures 11.2 x 4.2 x 10.1 cm in size. No focal splenic lesions. IMPRESSION: Cholelithiasis. No sonographic evidence of acute cholecystitis. Mild diffusely increased echogenicity of the liver; nonspecific, however likely due to fatty change. Digital Media Intern: LARRY Transcribe Date/Time: Jun 28 2018 2:39P Dictated by : YOMAIRA DIAS MD This examination was interpreted and the report reviewed and electronically signed by: YOMAIRA DIAS MD on Jun 28 2018 2:41PM EST [id number] US ABD RIGHT UPPER Observed: 06/28/2018 Status: F Source: [facility] 8:[address] [facility] REPOSITORY * * *Final Report* * * DATE OF EXAM: Jun 28 2018 8:21AM [facility] 1032 - US ABD RIGHT UPPER QUADRANT / PROCEDURE REASON: Right upper quadrant pain * * * * Physician Interpretation * * * * EXAMINATION: RIGHT UPPER QUADRANT AND SPLEEN ULTRASOUND CLINICAL HISTORY: Right upper quadrant abdomen pain. TECHNIQUE: Sonography of the right upper quadrant was performed. Images were obtained and stored in a permanent archive. MQ: URUQ_1 COMPARISON: None. RESULT: Pancreas: The pancreas is not well-visualized secondary to limited sonographic window. Liver: Echotexture: Normal, homogeneous. Echogenicity: Mild diffusely increased echogenicity of the liver; nonspecific, however likely due to fatty change. Surface contour: Smooth Lesions: None. Biliary: No intrahepatic biliary duct dilation. CBD: 0.3 cm at the hilum. Gallbladder: Normal caliber -Contents: Few small echogenic densities are noted within the gallbladder, likely small gallstones. -Wall: Normal -Other: No pericholecystic fluid. Right Kidney: No hydronephrosis. The right kidney measures 10.6 cm in length. Ascites: None. Spleen: The spleen measures 11.2 x 4.2 x 10.1 cm in size. No focal splenic lesions. IMPRESSION: Cholelithiasis. No sonographic evidence of acute cholecystitis. Mild diffusely increased echogenicity of the liver; nonspecific, however likely due to fatty change. Digital Media Intern: LARRY Transcribe Date/Time: Jun 28 2018 2:39P Dictated by : YOMAIRA DIAS MD This examination was interpreted and the report reviewed and electronically signed by: YOMAIRA DIAS MD on Jun 28 2018 2:41PM EST [id number] CBC AND DIFFERENTIAL Collected: 06/23/2018 Status: F Source: [place] 4:[address] [facility] REPOSITORY TYPE CODE TESTS RESULT OUT OF REFERENCE UNITS RANGE LAB WBC 3.70-11.00 k/uL WBC 10.95 LAB RBC 3.90-5.20 m/uL RBC 4.34 LAB HGB 11.5-15.5 g/dL Hemoglobin 13.2 LAB HCT 36.0-46.0 % Hematocrit 39.9 LAB MCV 80.0-100.0 fL MCV 91.9 LAB MCH 26.0-34.0 pG MCH 30.4 LAB MCHC 30.5-36.0 g/dL MCHC 33.1 LAB RDWCV 11.5-15.0 % RDW-CV 13.4 LAB PLTCT 150-400 k/uL Platelet Count 302 LAB MPV 9.0-12.7 fL MPV 9.7 LAB ANEUT % Neut% 64.1 LAB AANEUT 1.45-7.50 k/uL Abs Neut 7.01 LAB ALYMP % Lymph% 24.7 LAB AALYMP 1.00-4.00 k/uL Abs Lymph 2.71 LAB AMONO % Baldwin% 8.5 LAB AAMONO <0.87 k/uL Abs Baldwin High 0.93 LAB AEOS % Eosin% 2.1 LAB AAEOS <0.46 k/uL Abs Eosin 0.23 LAB ABASO % Baso% 0.6 LAB AABASO <0.11 k/uL Abs Baso 0.07 LAB AUNRBC 0 /100 WBC NRBCs 0.0 LAB ABNRBC <0.01 k/uL Absolute nRBC <0.01 LAB DTYP DTYPE Auto Diff Performed By: #### CBCDIF, CMP, LIPA #### [facility] [address] [place], [place] [address] COMP METABOLIC PANEL Collected: 06/23/2018 Status: F Source: [place] 4:[address] [facility] REPOSITORY TYPE CODE TESTS RESULT OUT OF REFERENCE UNITS RANGE LAB TP 6.3-8.0 g/dL Protein, Total 7.5 LAB ALB 3.9-4.9 g/dL Albumin 4.4 LAB CA 8.5-10.2 mg/dL Calcium, Total 9.7 LAB TBIL 0.2-1.3 mg/dL Bilirubin, Total 0.4 LAB ALKP 32-117 U/L Alkaline Phosphatase 70 LAB AST 13-35 U/L AST 22 LAB GLU 74-99 mg/dL Glucose High 103 Result Comment: The [place] Diabetes Association (ADA) provides guidance for cutoff values for fasting glucose and random glucose. The ADA defines fasting as no caloric intake for at least 8 hours. Fas ting plasma glucose results between 100 to 125 mg/dL indicate increased risk for diabetes (prediabetes). Fasting plasma glucose results greater than or equal to 126 mg/dL meet the criteria for diagnosis of diabetes. In the absence of unequivocal hyperglycemia, results should be confirmed by repeat testing. In a patient with classic symptoms of hyperglycemia or hyperglycemic crisis, random plasma glucose results greater than or equal to 200 mg/dL meet the criteria for diagnosis of diabetes. Reference: Standards of Medical Care in Diabetes 2016, [place] [employer]. Diabetes Care. 2016.39(Suppl 1). LAB BUN 7-21 mg/dL BUN High 22 LAB CRET 0.58-0.96 mg/dL Creatinine 0.62 LAB NA 136-144 mmol/L Sodium 141 LAB K 3.7-5.1 mmol/L Potassium 4.2 LAB CL 97-105 mmol/L Chloride 100 LAB CO2 22-30 mmol/L CO2 25 LAB AGAP 9-18 mmol/L Anion Gap 16 LAB ALT 7-38 U/L ALT 16 LAB GFRAA eGFR- Amer. >60 LAB GFRNAA . eGFR-All Other Races >60 Result Comment: eGFR (Estimated GFR) Units of measure: mL/min/1.73 meters squared eGFR is derived from the reexpressed MDRD Study equation using the following parameters: serum creatinine, age, gender and race. The creatinine assay has been calibrated to be traceable to IDMS. An eGFR <60 mL/min/1.73m2 for >3 months is consistent with chronic kidney disease. Refer to KDOQI guidelines for clinical interpretation. In patients with unstable renal function, e.g. those with acute kidney injury, the eGFR may not accurately reflect actual GFR. Performed By: #### CBCDIF, CMP, LIPA #### [facility] [address] [place] [address] LIPASE Collected: 06/23/2018 Status: F Source: [place] 4:[address] [facility] REPOSITORY TYPE CODE TESTS RESULT OUT OF REFERENCE UNITS RANGE LAB LIPA 16-61 U/L Lipase 33 Performed By: #### CBCDIF, CMP, LIPA #### [facility] [address] [place], [place] [address] PROGRESS Observed: 06/23/2018 Status: COMPLETED Source: [place] 4:[address] [facility] REPOSITORY HNO ID: [id number] Author: Francine Turner) Jeanette Service: (none) Author Type: Physician Type: Progress Notes Filed: 06/25/2018 9:26 PM Note Text: Chief Complaint Patient presents with: Pain: right flank - x3 weeks sweats and chills HPI Macy Downey is a 67 year old female who presents here today for Above Complaints.. Patient seen about 2 months ago for complaint of flank pain with negative workup for renal cause, had negative xrays of lumbar and thoracic spine and was recommended to follow up with PT. Since that time, patient has not followed up with PT. Pain at last OV described as: Described as aching/soreness with occasional sharp pain, can get up to 10/10, but typically is 3/10, denies radiation of pain. Exacerbated with lying down, bending/twisting certain ways. Taking ibuprofen for pain which does not help. Pain has not changed in the last couple years. States that the pain has changed in the last 2 months and now has pain in the right upper abdomen, right flank, and into epigastric region. Described as contraction like pain. Not exacerbated with eating. Seems to come on at random and can last for minutes. Treating with meloxicam for pain which helps. Admits to occasional chills and flushing/sweats, heartburn, decreased appetite. Denies urinary symptoms, fever, nausea, vomiting, diarrhea, hematochezia, melena, injury. Notes vaginal bleeding a couple months ago. Had hysterectomy in 1987. Does not see [facility]. Past medical history, appointments, medications, allergies reviewed. Previous Medical History PAST MEDICAL HISTORY Diagnosis Date - Abdominal pain, unspecified site - Acute gastritis 08/07/2009 - Allergy, unspecified not elsewhere classified - Diffuse cystic mastopathy - Diverticulosis of colon (without mention of hemorrhage) Diverticulosis - Empty sella (HCC) - Endometriosis s/p SUNIL BSO - Esophageal reflux - Esophagitis - Heart murmur - Hiatal hernia 08/07/2009 - Hot flashes due to menopause - Hypothyroidism - Morbid obesity (HCC) - Multiple thyroid nodules yearly US - Myalgia and myositis, unspecified - Pulmonary fibrosis (HCC) 2016 minor in right lung - Pulmonary hypertension (HCC) Seen by Dr. Brar - Rheumatoid arthritis(714.0) - Superficial thrombophlebitis - Type II or unspecified type diabetes mellitus without mention of complication, not stated as uncontrolled - Unspecified asthma(493.90) - Unspecified chronic bronchitis (HCC) Chronic bronchitis - Unspecified essential hypertension Previous Surgical History PAST SURGICAL HISTORY Procedure Laterality Date - APPENDECTOMY 1966 - EGD W/O BRSH SPECIMEN W/BX 08/07/09 HH, gastritis - EGD W/O OR W/BRUSH/WASH 10/19/13 EGD - FNA WITH IMAGING 03/26/2010 U/S FNA right thyroid x 1 and left x 2 - LAPAROSCOPY DIAGNOSTIC endometriosis - PAST SURGICAL HISTORY OF 09/30/2015 Right heart cath, Left heart cath, left ventriculogram, coronary arteriography - [place] ANESTH,TOTAL KNEE ARTHROPLASTY Right 2016 - REMOVAL OF OVARY/TUBE(S) 1987 Salpingo-oophorectomy - REMOVAL OF TONSILS,<12 Y/O Tonsillectomy - TOTAL ABDOM HYSTERECTOMY 1987 Hysterectomy, SUNIL for benign tumor Family History FAMILY HISTORY Problem Relation Age of Onset - Heart Father - Thyroid Father - Heart Mother - other (Pulmonary fibrosis) Mother IPF? - Cancer Paternal Grandfather bone cancer-multiple myeloma - Cancer Maternal Grandfather liver - Cancer Paternal Aunt lungs - Cancer Paternal Uncle lung and brain - Heart Sister in her sleep - Thyroid Sister - Cancer Brother pancreatic - Heart Brother in his sleep - Diabetes Sister - other (a fib) Sister Patient Allergies ALLERGIES Allergen Reactions - Amoxicillin Diarrhea - Glucophage Xr [Metf* Diarrhea, GI Upset Bloating - Cymbalta [Duloxetin* Other: See Comments Neuropathy , electrical shocks - Glipizide Unknown - Nexium [Esomeprazol* Other: See Comments Ineffective - Omeprazole Other: See Comments Ineffective - Protonix [Pantopraz* Other: See Comments Ineffective - Altace [Ramipril] Other: See Comments Blurred vision - Zantac [Ranitidine * Rash, Itching Current Medications Current Outpatient Prescriptions on File Prior to Visit: KLOR-CON 10 10 mEq tablet TAKE 2 TABLETS BY MOUTH TWICE DAILY. cyclobenzaprine (FLEXERIL) 5 mg tablet Take 1 tablet by mouth three times daily as needed for Muscle Spasm. cholecalciferol (VITAMIN D-3) 5,000 unit tab Take 5,000 Units by mouth once daily. estradiol (VIVELLE-DOT) 0.1 mg/24 hr Apply 1 Patch as directed once each week. losartan (COZAAR) 25 mg tablet Take 0.5 tablets by mouth once daily. fluticasone (FLONASE) 50 mcg/actuation nasal spray Use 2 Sprays in each nostril once daily. levothyroxine (LEVOXYL) 50 mcg tablet Take 1 tablet by mouth once daily. Insulin Odem, Disposable, (NOVOFINE 30) 30 gauge x 1/3 ndle 1 Device once daily. triamterene-hydrochlorothiazide (MAXZIDE-25) 37.5-25 mg per tablet TAKE 1/2 TABLET BY MOUTH ONCE DAILY VICTOZA 2-COCO 0.6 mg/0.1 mL (18 mg/3 mL) pnij INJECT 1.2 MILLIGRAM(S) BY SUBCUTANEOUS ROUTE , 1 TIME PER DAY , FOR 30 DAYS rosuvastatin (CRESTOR) 20 mg tablet Take 20 mg by mouth once daily. lansoprazole (PREVACID) 30 mg capsule Take 1 capsule by mouth once daily. amLODIPine (NORVASC) 10 mg tablet Take 1 tablet by mouth once daily. Psyllium (METAMUCIL) powd Take by mouth. MULTIVITAMIN TAB Take one(1) tablet daily. No current facility-administered medications on file prior to visit. 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 Social History Main Topics Smoking status: Never Smoker Smokeless tobacco: Never Used Comment: Father smoked in childhood home. ETS when visiting 2 sisters. Alcohol use: Yes Comment: Occasional glass of wine. Drug use: No Social History Narrative Sister in law Anushka Ornelas 7 brothers and sisters, Elizabeth Owens and Petar Ornelas FATHER had CABG [address] Pulido Review of Symptoms REVIEW OF SYSTEMS See HPI EXAM: BP 152/76 Pulse 80 Resp 12 Wt 110.7 kg (244 lb) BMI 46.10 kg/m? General Appearance: Well appearing, alert, in no acute distress, well-hydrated, well nourished.. Skin: Skin color, texture, turgor normal, no suspicious rashes or lesions. Lungs: Lungs clear to auscultation. No wheezing, rhonchi, rales. Heart: RRR without murmur, gallop, or rubs. No ectopy. Abdomen: Abdomen soft. Bowel sounds normal. No masses, organomegaly, Positive findings: tenderness moderate epigastric, RUQ and RLQ without guarding or rebound. Extremities: No deformities, edema, skin discoloration, clubbing or cyanosis. Good capillary refill. . Health Maintenance List DIABETIC FOOT EXAM due on 08/04/2017 FECAL OCCULT BLOOD due on 10/27/2017 INFLUENZA(1) due on 07/01/2018 LDL CHOLESTEROL due on 07/07/2018 STATIN MED ADHERENCE due on 07/01/2018 DIABETES MED ADHERENCE due on 07/01/2018 HBA1C due on 09/08/2018 URINE ALBUMIN:CREATININE RATIO due on 03/08/2019 DILATED RETINAL EXAM due on 03/10/2019 MAMMOGRAM due on 03/22/2019 ANNUAL PCP TEAM CHRONIC DISEASE VISIT due on 03/31/2019 BLOOD PRESSURE CONTROLLED due on 03/31/2019 DTAP,TDAP,TD(2 - Td) due on 10/21/2026 BONE DENSITY Completed ADULT PREVNAR-13 Completed HEPATITIS C SCREENING Completed Component Latest Ref Rng AND Units 06/23/2018 Glucose, Urine Neg mg/dL neg Bilirubin, Urine Neg neg Ketones, Urine Neg neg Specific [place], Ur 1.005 - 1.030 1.010 Hemoglobin/Blood,Ur Neg neg pH, Urine 4.5 - 8.0 5.0 Protein, Urine Neg mg/dL neg Urobilinogen, Urine Normal (<1.1) EU normal Nitrites Neg neg Leukocytes Neg neg Color/Appearance comment: light yellow/clear Quality Check yes/no Yes ASSESSMENT/PLAN: 1. Flank pain - ICD9: 789.09, ICD10: R10.9 (primary diagnosis) Unknown etiology. UA negative. Will obtain CT and blood work. Recommend soft/bland diet and OTC analgesics. Discussed red flag symptoms. Will call with results. - UA DIP B/O - CT ABD/PEL WO IVCON - CBC + DIFF - COMP METABOLIC PANEL - LIPASE BLD 2. Right upper quadrant pain - ICD9: 789.01, ICD10: R10.11 See above. - CT ABD/PEL WO IVCON - CBC + DIFF - COMP METABOLIC PANEL - LIPASE BLD - US ABD RT UPPER QUADRANT 3. Vaginal bleeding - ICD9: 623.8, ICD10: N93.9 H/o hysterectomy. Referral to [facility] for further evaluation. Check CBC. - CONSULT TO GYNECOLOGY Francine Reid MD CNOV Observed: 06/23/2018 Status: COMPLETED Source: [place] 4:[address] [facility] REPOSITORY [facility] DOWNEYELDAAMCY ([id number]) 1950 F Date Time Provider Department 06/23/18 4:00 PM FRANCINE REID) FAMPWS During your visit today, we recorded the following information about you: Pulse Respiration Blood pressure Weight 80/minute 12/minute 136/82 110.7 kg Francine Reid MD 06/25/2018 9:26 PM Signed Chief Complaint Patient presents with: Pain: right flank - x3 weeks sweats and chills HPI Macy Downey is a 67 year old female who presents here today for Above Complaints.. Patient seen about 2 months ago for complaint of flank pain with negative workup for renal cause, had negative xrays of lumbar and thoracic spine and was recommended to follow up with PT. Since that time, patient has not followed up with PT. Pain at last OV described as: Described as aching/soreness with occasional sharp pain, can get up to 10/10, but typically is 3/10, denies radiation of pain. Exacerbated with lying down, bending/twisting certain ways. Taking ibuprofen for pain which does not help. Pain has not changed in the last couple years. States that the pain has changed in the last 2 months and now has pain in the right upper abdomen, right flank, and into epigastric region. Described as contraction like pain. Not exacerbated with eating. Seems to come on at random and can last for minutes. Treating with meloxicam for pain which helps. Admits to occasional chills and flushing/sweats, heartburn, decreased appetite. Denies urinary symptoms, fever, nausea, vomiting, diarrhea, hematochezia, melena, injury. Notes vaginal bleeding a couple months ago. Had hysterectomy in 1987. Does not see [facility]Y MECHANIC. Past medical history, appointments, medications, allergies reviewed. Previous Medical History PAST MEDICAL HISTORY Diagnosis Date - Abdominal pain, unspecified site - Acute gastritis 08/07/2009 - Allergy, unspecified not elsewhere classified - Diffuse cystic mastopathy - Diverticulosis of colon (without mention of hemorrhage) Diverticulosis - Empty sella (HCC) - Endometriosis s/p SUNIL BSO - Esophageal reflux - Esophagitis - Heart murmur - Hiatal hernia 08/07/2009 - Hot flashes due to menopause - Hypothyroidism - Morbid obesity (HCC) - Multiple thyroid nodules yearly US - Myalgia and myositis, unspecified - Pulmonary fibrosis (HCC) 2016 minor in right lung - Pulmonary hypertension (HCC) Seen by Dr. Brar - Rheumatoid arthritis(714.0) - Superficial thrombophlebitis - Type II or unspecified type diabetes mellitus without mention of complication, not stated as uncontrolled - Unspecified asthma(493.90) - Unspecified chronic bronchitis (HCC) Chronic bronchitis - Unspecified essential hypertension Previous Surgical History PAST SURGICAL HISTORY Procedure Laterality Date - APPENDECTOMY 1967 - EGD W/O BRSH SPECIMEN W/BX 08/07/09 HH, gastritis - EGD W/O OR W/BRUSH/WASH 10/19/13 EGD - FNA WITH IMAGING 03/26/2010 U/S FNA right thyroid x 1 and left x 2 - LAPAROSCOPY DIAGNOSTIC endometriosis - PAST SURGICAL HISTORY OF 09/30/2015 Right heart cath, Left heart cath, left ventriculogram, coronary arteriography - TN ANESTH,TOTAL KNEE ARTHROPLASTY Right 2016 - REMOVAL OF OVARY/TUBE(S) 1987 Salpingo-oophorectomy - REMOVAL OF TONSILS,<12 Y/O Tonsillectomy - TOTAL ABDOM HYSTERECTOMY 1987 Hysterectomy, SUNIL for benign tumor Family History FAMILY HISTORY Problem Relation Age of Onset - Heart Father - Thyroid Father - Heart Mother - other (Pulmonary fibrosis) Mother IPF? - Cancer Paternal Grandfather bone cancer-multiple myeloma - Cancer Maternal Grandfather liver - Cancer Paternal Aunt lungs - Cancer Paternal Uncle lung and brain - Heart Sister in her sleep - Thyroid Sister - Cancer Brother pancreatic - Heart Brother in his sleep - Diabetes Sister - other (a fib) Sister Patient Allergies ALLERGIES Allergen Reactions - Amoxicillin Diarrhea - Glucophage Xr [Metf* Diarrhea, GI Upset Bloating - Cymbalta [Duloxetin* Other: See Comments Neuropathy , electrical shocks - Glipizide Unknown - Nexium [Esomeprazol* Other: See Comments Ineffective - Omeprazole Other: See Comments Ineffective - Protonix [Pantopraz* Other: See Comments Ineffective - Altace [Ramipril] Other: See Comments Blurred vision - Zantac [Ranitidine * Rash, Itching Current Medications Current Outpatient Prescriptions on File Prior to Visit: KLOR-CON 10 10 mEq tablet TAKE 2 TABLETS BY MOUTH TWICE DAILY. cyclobenzaprine (FLEXERIL) 5 mg tablet Take 1 tablet by mouth three times daily as needed for Muscle Spasm. cholecalciferol (VITAMIN D-3) 5,000 unit tab Take 5,000 Units by mouth once daily. estradiol (VIVELLE-DOT) 0.1 mg/24 hr Apply 1 Patch as directed once each week. losartan (COZAAR) 25 mg tablet Take 0.5 tablets by mouth once daily. fluticasone (FLONASE) 50 mcg/actuation nasal spray Use 2 Sprays in each nostril once daily. levothyroxine (LEVOXYL) 50 mcg tablet Take 1 tablet by mouth once daily. Insulin Odem, Disposable, (NOVOFINE 30) 30 gauge x 1/3 ndle 1 Device once daily. triamterene-hydrochlorothiazide (MAXZIDE-25) 37.5-25 mg per tablet TAKE 1/2 TABLET BY MOUTH ONCE DAILY VICTOZA 2-COCO 0.6 mg/0.1 mL (18 mg/3 mL) pnij INJECT 1.2 MILLIGRAM(S) BY SUBCUTANEOUS ROUTE , 1 TIME PER DAY , FOR 30 DAYS rosuvastatin (CRESTOR) 20 mg tablet Take 20 mg by mouth once daily. lansoprazole (PREVACID) 30 mg capsule Take 1 capsule by mouth once daily. amLODIPine (NORVASC) 10 mg tablet Take 1 tablet by mouth once daily. Psyllium (METAMUCIL) powd Take by mouth. MULTIVITAMIN TAB Take one(1) tablet daily. No current facility-administered medications on file prior to visit. 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 Social History Main Topics Smoking status: Never Smoker Smokeless tobacco: Never Used Comment: Father smoked in childhood home. ETS when visiting 2 sisters. Alcohol use: Yes Comment: Occasional glass of wine. Drug use: No Social History Narrative Sister in law Anushka Ornelas 7 brothers and sisters, Elizabeth Owens and Petar Ornelas FATHER had CABG [address] Pulido Review of Symptoms REVIEW OF SYSTEMS See HPI EXAM: BP 152/76 Pulse 80 Resp 12 Wt 110.7 kg (244 lb) BMI 46.10 kg/m? General Appearance: Well appearing, alert, in no acute distress, well-hydrated, well nourished.. Skin: Skin color, texture, turgor normal, no suspicious rashes or lesions. Lungs: Lungs clear to auscultation. No wheezing, rhonchi, rales. Heart: RRR without murmur, gallop, or rubs. No ectopy. Abdomen: Abdomen soft. Bowel sounds normal. No masses, organomegaly, Positive findings: tenderness moderate epigastric, RUQ and RLQ without guarding or rebound. Extremities: No deformities, edema, skin discoloration, clubbing or cyanosis. Good capillary refill. . Health Maintenance List DIABETIC FOOT EXAM due on 08/04/2017 FECAL OCCULT BLOOD due on 10/27/2017 INFLUENZA(1) due on 07/01/2018 LDL CHOLESTEROL due on 07/07/2018 STATIN MED ADHERENCE due on 07/01/2018 DIABETES MED ADHERENCE due on 07/01/2018 HBA1C due on 09/08/2018 URINE ALBUMIN:CREATININE RATIO due on 03/08/2019 DILATED RETINAL EXAM due on 03/10/2019 MAMMOGRAM due on 03/22/2019 ANNUAL PCP TEAM CHRONIC DISEASE VISIT due on 03/31/2019 BLOOD PRESSURE CONTROLLED due on 03/31/2019 DTAP,TDAP,TD(2 - Td) due on 10/21/2026 BONE DENSITY Completed ADULT PREVNAR-13 Completed HEPATITIS C SCREENING Completed Component Latest Ref Rng AND Units 06/23/2018 Glucose, Urine Neg mg/dL neg Bilirubin, Urine Neg neg Ketones, Urine Neg neg Specific [place], Ur 1.005 - 1.030 1.010 Hemoglobin/Blood,Ur Neg neg pH, Urine 4.5 - 8.0 5.0 Protein, Urine Neg mg/dL neg Urobilinogen, Urine Normal (<1.1) EU normal Nitrites Neg neg Leukocytes Neg neg Color/Appearance comment: light yellow/clear Quality Check yes/no Yes ASSESSMENT/PLAN: 1. Flank pain - ICD9: 789.09, ICD10: R10.9 (primary diagnosis) Unknown etiology. UA negative. Will obtain CT and blood work. Recommend soft/bland diet and OTC analgesics. Discussed red flag symptoms. Will call with results. - UA DIP B/O - CT ABD/PEL WO IVCON - CBC + DIFF - COMP METABOLIC PANEL - LIPASE BLD 2. Right upper quadrant pain - ICD9: 789.01, ICD10: R10.11 See above. - CT ABD/PEL WO IVCON - CBC + DIFF - COMP METABOLIC PANEL - LIPASE BLD - US ABD RT UPPER QUADRANT 3. Vaginal bleeding - ICD9: 623.8, ICD10: N93.9 H/o hysterectomy. Referral to [facility] for further evaluation. Check CBC. - CONSULT TO GYNECOLOGY Francine Reid MD Referring Provider: SELF [[id number]] Allergies As of Date: 06/23/2018 Noted Allergy Reaction AMOXICILLIN 02/21/2009 6 - Diarrhea GLUCOPHAGE XR (METFORMIN HCL) 03/29/2007 6 - Diarrhea 8 - GI Upset Comments: Bloating CYMBALTA (DULOXETINE) 06/28/2017 14 - Other: See Comments Comments: Neuropathy , electrical shocks GLIPIZIDE 06/28/2017 16 - Unknown NEXIUM (ESOMEPRAZOLE MAGNESIUM) 08/04/2016 14 - Other: See Comments Comments: Ineffective OMEPRAZOLE 08/04/2016 14 - Other: See Comments Comments: Ineffective PROTONIX (PANTOPRAZOLE SODIUM) 08/04/2016 14 - Other: See Comments Comments: Ineffective ALTACE (RAMIPRIL) 08/04/2005 14 - Other: See Comments Comments: Blurred vision ZANTAC (RANITIDINE HCL) 08/04/2005 2 - Rash 9 - Itching Date Reviewed: 03/31/2018 Reviewed by: Wilfred Fontana Ma - Fully Assessed Reason for Visit: Pain [78] Cmt: right flank - x3 weeks sweats and chills Reason For Visit History Recorded Primary Visit Diagnosis:Flank pain [R10.9] Other Visit Diagnoses:Right upper quadrant pain [R10.11] Vaginal bleeding [N93.9] Order(s):UA DIP B/O [8248105] Order #: [id number] CT ABD/PEL WO IVCON [[id number]] Order #: [id number] FUTURE CONSULT TO GYNECOLOGY [9013] Order #: [id number]: 1 CBC + DIFF [SQCBCDIF] Order #: [id number] FUTURE COMP METABOLIC PANEL [SQCMP] Order #: [id number] FUTURE LIPASE BLD [SQLIPA] Order #: [id number] FUTURE US ABD RT UPPER QUADRANT [[id number]] Order #: [id number] FUTURE Prescriptions as of 06/23/2018 Sig: KLOR-CON 10 MEQ TABLET,EXTEND* TAKE 2 TABLETS BY MOUTH TWICE* CYCLOBENZAPRINE 5 MG TABLET Take 1 tablet by mouth three * CHOLECALCIFEROL (VITAMIN D3) * Take 5,000 Units by mouth onc* ESTRADIOL 0.1 MG/24 HR SEMIWE* Apply 1 Patch as directed onc* LOSARTAN 25 MG TABLET Take 0.5 tablets by mouth onc* FLUTICASONE 50 MCG/ACTUATION * Use 2 Sprays in each nostril * LEVOTHYROXINE 50 MCG TABLET Take 1 tablet by mouth once d* PEN NEEDLE, DIABETIC 30 GAUGE* 1 Device once daily. TRIAMTERENE 37.5 MG-HYDROCHLO* TAKE 1/2 TABLET BY MOUTH ONCE* VICTOZA 2-COCO 0.6 MG/0.1 ML (* INJECT 1.2 MILLIGRAM(S) BY PULLIAM* ROSUVASTATIN 20 MG TABLET Take 20 mg by mouth once della* LANSOPRAZOLE 30 MG CAPSULE,DE* Take 1 capsule by mouth once * AMLODIPINE 10 MG TABLET Take 1 tablet by mouth once d* PSYLLIUM ORAL POWDER Take by mouth. MULTIVITAMIN TABLET Take one(1) tablet daily. Problem List As Of Date 06/23/2018 Noted Resolved Type II or unspecified type diabetes mellitus w* 07/27/2014 Rheumatoid arthritis (HCC) [M06.9] More... More... ASTHMA UNSPECIFIED [J45.909] More... More... Diffuse cystic mastopathy [N60.19] 08/04/2016 HYPERTENSION NOS [I10] 08/05/2015 ALLERGY, UNSPECIFIED [T78.40XA] HYPERLIPIDEMIA NEC/NOS [E78.5] INVALID FOR* Sprain and strain of unspecified site of should*INVALID FOR*08/04/2016 More... OBESITY [E66.9] INVALID FOR*02/06/2015 Multinodular goiter (nontoxic) [E04.2] INVALID FOR* More... Abdominal pain [R10.9] INVALID FOR*10/19/2013 GERD (Gastroesophageal Reflux Disease) [K21.9] INVALID FOR* Abdominal pain, unspecified site [R10.9] INVALID FOR*10/17/2013 BMI 45.0-49.9, adult [Z68.42] INVALID FOR* DM w/ coma type II, uncontrolled (HCC) [E11.69,*INVALID FOR*07/27/2014 Diabetes mellitus type 2, controlled, without c*INVALID FOR* More... Chronic rheumatic arthritis (HCC) [M06.9] INVALID FOR*08/04/2016 Depression [F32.9] INVALID FOR* Vitamin D deficiency [E55.9] INVALID FOR* Essential hypertension [I10] Hypothyroidism [E03.9] Disposition: Return if symptoms worsen or fail to improve. Follow-up and Disposition History Recorded Encounter Status:Closed by FRANCINE REID MD on 06/25/18 THYROID STIM HORMONE Collected: 04/17/2018 Status: F Source: [place] (TSH) 3:46 PM [facility] REPOSITORY TYPE CODE TESTS RESULT OUT OF RANGE REFERENCE UNITS LAB L501.9520 0.358-3.74 uIU/mL Normal TSH 2.78 Performed By: #### L501.9520, L506.0400 #### [facility] [address] [place], [place], [address] T4 FREE DIRECT Collected: 04/17/2018 Status: F Source: [place] 3:46 PM [facility] REPOSITORY TYPE CODE TESTS RESULT OUT OF RANGE REFERENCE UNITS LAB L506.0400 0.76-1.46 ng/dL Normal T4 FREE 1.11 DIRECT Performed By: #### L501.9520, L506.0400 #### [facility] [place], [address] PROGRESS Observed: 04/17/2018 Status: COMPLETED Source: [place] 1:30 PM [facility] REPOSITORY HNO ID: [id number] Author: Nicol Blancas LPN Service: (none) Author Type: (none) Type: Progress Notes Filed: 04/17/2018 1:31 PM Note Text: combined this note to the thoracic xray result note. XR LUMBAR 3V Observed: 04/14/2018 Status: F Source: [place] AP/LAT/L5-S1 2:18 PM [facility] REPOSITORY * * *Final Report* * * DATE OF EXAM: Apr 14 2018 2:18PM [id number] - XR LUMBAR 3V AP/LAT/L5-S1 / PROCEDURE REASON: multiple diagnoses * * * * Physician Interpretation * * * * EXAM TITLE: XR LUMBAR 3V AP/LAT/L5-S1 EXAM DATE/TIME: 04/14/2018 2:18 PM COMPARISON: None. CLINICAL INDICATION/HISTORY: Pain TECHNIQUE: AP, lateral and cone down lateral views of the lumbar spine are presented. FINDINGS: There are five ykh-lls-pievnko lumbar vertebra. No fracture or subluxations are noted. Questionable L2-3 mild disc space narrowing. There is moderate osteophyte formation. IMPRESSION: Lumbar spine degenerative changes. Digital Media Intern: LARRY Transcribe Date/Time: Apr 17 2018 12:44P Dictated by : PEÑA PALACIOS MD This examination was interpreted and the report reviewed and electronically signed by: PEÑA PALACIOS MD on Apr 17 2018 12:46PM EST [id number] XR THORACIC 3V Observed: 04/14/2018 Status: F Source: [place] AP/LAT/SWIMMERS 2:18 PM [facility] REPOSITORY * * *Final Report* * * DATE OF EXAM: Apr 14 2018 2:18PM [id number] - XR THORACIC 3V AP/LAT/SWIMMERS / PROCEDURE REASON: multiple diagnoses * * * * Physician Interpretation * * * * EXAM TITLE: XR THORACIC 3V AP/LAT/SWIMMERS EXAM DATE/TIME: 04/14/2018 2:18 PM COMPARISON: None. CLINICAL INDICATION/HISTORY: Pain in the thoracic spine. TECHNIQUE: AP, swimmer's and lateral views of the thoracic spine are presented FINDINGS: No fractures or subluxations are noted. The disc spaces are well preserved. There is moderate osteophyte formation. There is no paraspinal mass or bony destructive process. IMPRESSION: Thoracic spine degenerative changes. Digital Media Intern: LARRY Transcribe Date/Time: Apr 17 2018 12:46P Dictated by : PEÑA PALACIOS MD This examination was interpreted and the report reviewed and electronically signed by: PEÑA PALACIOS MD on Apr 17 2018 12:48PM EST [id number] PROGRESS Observed: 04/14/2018 Status: COMPLETED Source: [place] 2:[address] [facility] REPOSITORY HNO ID: [id number] Author: Antoinette Davila Service: (none) Author Type: (none) Type: Progress Notes Filed: 04/14/2018 2:18 PM Note Text: Radiology Service Progress Note PATIENT NAME: Macy Downey DATE OF SERVICE: April 14, 2018 TIME: 2:04 PM PATIENT IDENTITY VERIFICATION COMPLETED USING TWO (2) METHODS: Patient confirmed name verbally and Date of . PATIENT GENDER DATA: Female. status: : No status: NO. PATIENT RELEVANT IMPLANT DATA REVIEWED: Not Applicable RADIOLOGY DEPARTMENT: General X-ray: Exam(s) Completed: Spine X-Ray(s): Thoracic and Lumbar AP / LAT / L5-S1 PERIPHERAL IV DATA: Not applicable SIGNED BY: Antoinette Davila April 14, 2018 2:04 PM PROGRESS Observed: 03/31/2018 Status: COMPLETED Source: [place] 9:[address] [facility] REPOSITORY HNO ID: [id number] Author: Francine Reid Service: (none) Author Type: Physician Type: Progress Notes Filed: 03/31/2018 9:56 AM Note Text: Chief Complaint Patient presents with: 2 week follow up: right side pain, discuss DM HPI Macy Downey is a 67 year old female who presents here today for Above Complaints. Since last OV, patient had colonoscopy and EGD performed on 03/28 and thyroid biopsy on 03/[address] Sawyer. Told colonoscopy was normal. Obtained biopsies during EGD and told esophagus was irritated. Awaiting biopsy results from EGD and thyroid. Results not in system at this time. Right side pain has been intermittent for the last 2 years. Occurs on an almost nightly basis when lying down and lasts for about 1- 2 minutes. Located on right lower abdomen and right lower back. Described as aching/soreness with occasional sharp pain, can get up to 10/10, but typically is 3/10, denies radiation of pain. Exacerbated with lying down, bending/twisting certain ways. Taking ibuprofen for pain which does not help. Pain has not changed in the last couple years. Denies injury to area, pain with eating, nausea, vomiting, diarrhea, hematochezia, melena, vaginal discharge, vaginal bleeding, urinary symtpoms. DIABETES MELLITUS: Ms. Downey was last seen 6 months ago. Since our last visit she denies excessive thirst or increased frequency of urination, numbness, tingling or pain in extremities and low sugar/hypoglycemic reactions. Admits to blurred vision and was given drops for dry eyes in the last 6 months. Follows a diabetic diet most of the time. She is compliant with medication(s) and is tolerating med(s) without any side effects. She reports checking her glucose on a once a day schedule with sugars in the <150 range. Patient's last HgA1C was Hemoglobin A1C Date Value 03/08/2018 6.1 % 01/18/2018 5.4 07/07/2017 5.9 % ) Last Ophthalmology exam was within the past 12 months Last Podiatry exam was more than 12 months ago Past medical history, appointments, medications, allergies reviewed. Previous Medical History PAST MEDICAL HISTORY Diagnosis Date - Abdominal pain, unspecified site - Acute gastritis 08/07/2009 - Allergy, unspecified not elsewhere classified - Diffuse cystic mastopathy - Diverticulosis of colon (without mention of hemorrhage) Diverticulosis - Empty sella (HCC) - Endometriosis s/p SUNIL BSO - Esophageal reflux - Esophagitis - Heart murmur - Hiatal hernia 08/07/2009 - Hot flashes due to menopause - Hypothyroidism - Morbid obesity (HCC) - Multiple thyroid nodules yearly US - Myalgia and myositis, unspecified - Pulmonary fibrosis (HCC) 2016 minor in right lung - Pulmonary hypertension Seen by Dr. Brar - Rheumatoid arthritis(714.0) - Superficial thrombophlebitis - Type II or unspecified type diabetes mellitus without mention of complication, not stated as uncontrolled - Unspecified asthma(493.90) - Unspecified chronic bronchitis (HCC) Chronic bronchitis - Unspecified essential hypertension Previous Surgical History PAST SURGICAL HISTORY Procedure Laterality Date - APPENDECTOMY 1966 - EGD W/O BRSH SPECIMEN W/BX 08/07/09 HH, gastritis - EGD W/O OR W/BRUSH/WASH 10/19/13 EGD - FNA WITH IMAGING 03/26/2010 U/S FNA right thyroid x 1 and left x 2 - LAPAROSCOPY DIAGNOSTIC endometriosis - PAST SURGICAL HISTORY OF 09/30/2015 Right heart cath, Left heart cath, left ventriculogram, coronary arteriography - TN ANESTH,TOTAL KNEE ARTHROPLASTY Right 2016 - REMOVAL OF OVARY/TUBE(S) 1987 Salpingo-oophorectomy - REMOVAL OF TONSILS,<13 Y/O Tonsillectomy - TOTAL ABDOM HYSTERECTOMY 1987 Hysterectomy, SUNIL for benign tumor Family History FAMILY HISTORY Problem Relation Age of Onset - Heart Father - Thyroid Father - Heart Mother - Pulmonary fibrosis [OTHER] Mother IPF? - Cancer Paternal Grandfather bone cancer-multiple myeloma - Cancer Maternal Grandfather liver - Cancer Paternal Aunt lungs - Cancer Paternal Uncle lung and brain - Heart Sister in her sleep - Thyroid Sister - Cancer Brother pancreatic - Heart Brother in his sleep - Diabetes Sister - a fib [OTHER] Sister Patient Allergies ALLERGIES Allergen Reactions - Amoxicillin Diarrhea - Glucophage Xr [Metf* Diarrhea, GI Upset Bloating - Cymbalta [Duloxetin* Other: See Comments Neuropathy , electrical shocks - Glipizide Unknown - Nexium [Esomeprazol* Other: See Comments Ineffective - Omeprazole Other: See Comments Ineffective - Protonix [Pantopraz* Other: See Comments Ineffective - Altace [Ramipril] Other: See Comments Blurred vision - Zantac [Ranitidine * Rash, Itching Current Medications Current Outpatient Prescriptions on File Prior to Visit: cholecalciferol (VITAMIN D-3) 5,000 unit tab Take 5,000 Units by mouth once daily. estradiol (VIVELLE-DOT) 0.1 mg/24 hr Apply 1 Patch as directed once each week. losartan (COZAAR) 25 mg tablet Take 0.5 tablets by mouth once daily. fluticasone (FLONASE) 50 mcg/actuation nasal spray Use 2 Sprays in each nostril once daily. levothyroxine (LEVOXYL) 50 mcg tablet Take 1 tablet by mouth once daily. Insulin Odem, Disposable, (NOVOFINE 30) 30 gauge x 1/3 ndle 1 Device once daily. potassium chloride (KLOR-CON 10) 10 mEq tablet Take 2 tablets by mouth twice daily. triamterene-hydrochlorothiazide (MAXZIDE-25) 37.5-25 mg per tablet TAKE 1/2 TABLET BY MOUTH ONCE DAILY VICTOZA 2-COCO 0.6 mg/0.1 mL (18 mg/3 mL) pnij INJECT 1.2 MILLIGRAM(S) BY SUBCUTANEOUS ROUTE , 1 TIME PER DAY , FOR 30 DAYS rosuvastatin (CRESTOR) 20 mg tablet Take 20 mg by mouth once daily. lansoprazole (PREVACID) 30 mg capsule Take 1 capsule by mouth once daily. amLODIPine (NORVASC) 10 mg tablet Take 1 tablet by mouth once daily. Psyllium (METAMUCIL) powd Take by mouth. MULTIVITAMIN TAB Take one(1) tablet daily. No current facility-administered medications on file prior to visit. 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 Social History Main Topics Smoking status: Never Smoker Smokeless tobacco: Never Used Comment: Father smoked in childhood home. ETS when visiting 2 sisters. Alcohol use: Yes Comment: Occasional glass of wine. Drug use: No Social History Narrative Sister in law Anushka Ornelas 7 brothers and sisters, Elizabeth Owens and Petar Ornelas FATHER had CABG [address] Pulido Review of Symptoms REVIEW OF SYSTEMS GENERAL: No weight loss, malaise or fevers RESPIRATORY: Negative for cough, hemoptysis, wheezing, COPD, dyspnea or shortness of breath CARDIOVASCULAR: Negative for chest pain, leg swelling, hypertension, CHF or palpitations GI: No nausea, vomiting, or diarrhea : No history of dysuria, frequency or incontinence TOY MECHANIC: Negative for abnormal vaginal bleeding, abnormal vaginal discharge SKIN: Negative for lesions, rash, and itching EXAM: BP 108/68 Pulse 74 Resp 16 Wt 108.9 kg (240 lb) BMI 45.35 kg/m? General Appearance: Well appearing, alert, in no acute distress, well-hydrated, well nourished.. Skin: Skin color, texture, turgor normal, no suspicious rashes or lesions. Back:no pain to palpation of vertebrae, good flexion and extension, good range of motion, reflexes are 2+ and symmetric, motor and sensory appear to be normal, no evidence of scoliosis. Positive for TTP over lower right thoracic paraspinal muscles with spasm. Lungs: Lungs clear to auscultation. No wheezing, rhonchi, rales. Heart: RRR without murmur, gallop, or rubs. No ectopy. Abdomen: Abdomen soft. Bowel sounds normal. No masses, organomegaly, Negative CVA tenderness, Positive findings: tenderness mild generalized without guarding/rebound. Negative Tripathi's sign. Extremities: No deformities, edema, skin discoloration, clubbing or cyanosis. Good capillary refill. . Health Maintenance List DIABETIC FOOT EXAM due on 08/04/2017 FECAL OCCULT BLOOD due on 10/27/2017 INFLUENZA(Season Ended) due on 07/01/2018 LDL due on 07/07/2018 HBA1C due on 09/08/2018 URINE ALBUMIN CREATININE RATIO due on 03/08/2019 DILATED RETINAL EXAM due on 03/10/2019 MAMMOGRAM due on 03/22/2019 DTAP,TDAP,TD(2 - Td) due on 10/21/2026 BONE DENSITY Completed ADULT PREVNAR-13 Completed HEPATITIS C SCREENING Completed Data reviewed Component Latest Ref Rng AND Units 07/07/2017 08/17/2017 03/08/2018 WBC 3.70 - 11.00 k/uL 11.69 (H) 11.55 (H) RBC 3.90 - 5.20 m/uL 4.70 4.75 Hemoglobin 11.5 - 15.5 g/dL 14.2 14.5 Hematocrit 36.0 - 46.0 % 42.5 42.9 MCV 80.0 - 100.0 fL 90.4 90.3 MCH 26.0 - 34.0 pG 30.2 30.5 MCHC 30.5 - 36.0 g/dL 33.4 33.8 RDW-CV 11.5 - 15.0 % 13.3 13.2 Platelet Count 150 - 400 k/uL 312 324 MPV 9.0 - 12.7 fL 10.1 10.3 Neut% % 63.0 Abs Neut (ANC) 1.45 - 7.50 k/uL 7.36 Lymph% % 26.4 Abs Lymph 1.00 - 4.00 k/uL 3.09 Baldwin% % 6.4 Abs Baldwin 0.00 - 0.86 k/uL 0.75 Eosin% % 3.4 Abs Eosin 0.00 - 0.45 k/uL 0.40 Baso% % 0.8 Abs Baso 0.00 - 0.10 k/uL 0.09 Nucleated Reds 0 /100 WBC 0.0 Absolute nRBC <0.01 k/uL 0.00 <0.01 Diff Type Auto Diff Protein, Total 6.3 - 8.0 g/dL 7.9 8.4 (H) Albumin 3.9 - 4.9 g/dL 4.4 4.7 Calcium 8.5 - 10.2 mg/dL 9.4 10.0 Bilirubin, Total 0.2 - 1.3 mg/dL 0.4 0.5 Alkaline Phosphatase 32 - 117 U/L 74 60 AST 13 - 35 U/L 18 18 Glucose 74 - 99 mg/dL 119 (H) 99 BUN 7 - 21 mg/dL 15 22 (H) Creatinine 0.58 - 0.96 mg/dL 0.69 0.70 Sodium 136 - 144 mmol/L 137 136 Potassium 3.7 - 5.1 mmol/L 3.9 3.8 4.1 Chloride 97 - 105 mmol/L 99 95 (L) CO2 22 - 30 mmol/L 27 26 Anion Gap 9 - 18 mmol/L 11 15 ALT 7 - 38 U/L 17 14 eGFR- >60 >60 eGFR-All Other Races . >60 >60 Triglyceride 30 - 149 mg/dL 119 Cholesterol, Total 100 - 199 mg/dL 169 HDL Cholesterol >55 mg/dL 56 VLDL Cholesterol 6 - 40 mg/dL 24 LDL Cholesterol 60 - 129 mg/dL 89 Fasting Time hrs 12 TC:HDL Ratio 1.00 - 5.00 3.02 LDL:HDL Ratio 0.50 - 3.55 1.59 Non HDL Cholesterol 90 - 159 mg/dL 113 Creatinine, Ur Random (UCRR) 20 - 300 mg/dL 82.7 Albumin, Urine Random 0.0 - 23.0 mg/L <12.0 <12.0 Albumin/Creat Ratio 0 - 30 mg/g Not calculated Hemoglobin A1C 4.3 - 5.6 % 5.9 (H) 6.1 (H) Estimated Average Glucose mg/dL 123 128 TSH 0.400 - 5.500 uU/mL 1.480 Magnesium 1.7 - 2.3 mg/dL 2.0 ASSESSMENT/PLAN: 1. Controlled type 2 diabetes mellitus without complication, without long-term current use of insulin (HCC) - ICD9: 250.00, ICD10: E11.9 (primary diagnosis) Controlled. - Continue current medications - Blood glucose monitoring on a once a day schedule - Encouraged regular aerobic exercise and weight loss - Daily Asprin therapy recommended - Follow up in 6 months, sooner should any other issues arise. - HGB A1C - COMP METABOLIC PANEL - LIPID PANEL BASIC 2. Thrombophlebitis of superficial veins of right lower extremity - ICD9: 451.0, ICD10: I80.01 Will refer to vascular surgery for chronic thrombophlebitis and varicose veins. - CONSULT TO VASCULAR SURGERY 3. Chronic right-sided thoracic back pain - ICD9: 724.1, 338.29, ICD10: M54.6, G89.29 - Ice for localized tenderness - Warm moist heat for 20 min three times a day - Muscle relaxant- see orders - PT consult - Patient given instructions use of medications as ordered, intermittent rest, back care exercise program, weight loss, improved posture, proper lifting techniques, intermittent use of heat and self massage - CYCLOBENZAPRINE 5 MG TABLET - CONSULT TO PHYSICAL THERAPY - XR THORACIC GENERAL 3V AP/LAT/SWIMMERS - XR LUMBAR GENERAL 3V AP/LAT/L5-S1 4. RUQ abdominal pain - ICD9: 789.01, ICD10: R10.11 Suspect radicular from back based on exam, chronicity, and exacerbation with movement and position. Will see if symptoms improve with regimen for back. 5. Essential hypertension - ICD9: 401.9, ICD10: I10 - good control - Continue current medication(s) - Encouraged dietary sodium restriction/DASH diet - Recommended regular aerobic exercise. - Reviewed risks of HTN and principles of treatment - Goal of BP <140/90 6. Hypothyroidism, unspecified type - ICD9: 244.9, ICD10: E03.9 - continue current dose of Synthroid 0.050 mg 7. Gastroesophageal reflux disease without esophagitis - ICD9: 530.81, ICD10: K21.9 Controlled on prevacid. Francine Reid MD CNOV Observed: 03/31/2018 Status: COMPLETED Source: [place] 9:[address] [facility] REPOSITORY Office Visit (FAMPWS) MACY DOWNEY ([id number]) 1950 F Date Time Provider Department 03/31/18 9:00 AM FRANCINE REID) FAMPWS During your visit today, we recorded the following information about you: Pulse Respiration Blood pressure Weight 74/minute 16/minute 108/68 108.9 kg Francine Reid MD 03/31/2018 9:56 AM Signed Chief Complaint Patient presents with: 2 week follow up: right side pain, discuss DM HPI Macy Downey is a 67 year old female who presents here today for Above Complaints. Since last OV, patient had colonoscopy and EGD performed on 03/28 and thyroid biopsy on 03/[address] Sawyer. Told colonoscopy was normal. Obtained biopsies during EGD and told esophagus was irritated. Awaiting biopsy results from EGD and thyroid. Results not in system at this time. Right side pain has been intermittent for the last 2 years. Occurs on an almost nightly basis when lying down and lasts for about 1-2 minutes. Located on right lower abdomen and right lower back. Described as aching/soreness with occasional sharp pain, can get up to 10/10, but typically is 3/10, denies radiation of pain. Exacerbated with lying down, bending/twisting certain ways. Taking ibuprofen for pain which does not help. Pain has not changed in the last couple years. Denies injury to area, pain with eating, nausea, vomiting, diarrhea, hematochezia, melena, vaginal discharge, vaginal bleeding, urinary symtpoms. DIABETES MELLITUS: Ms. Downey was last seen 6 months ago. Since our last visit she denies excessive thirst or increased frequency of urination, numbness, tingling or pain in extremities and low sugar/hypoglycemic reactions. Admits to blurred vision and was given drops for dry eyes in the last 6 months. Follows a diabetic diet most of the time. She is compliant with medication(s) and is tolerating med(s) without any side effects. She reports checking her glucose on a once a day schedule with sugars in the <150 range. Patient's last HgA1C was Hemoglobin A1C Date Value 03/08/2018 6.1 % 01/18/2018 5.4 07/07/2017 5.9 % ) Last Ophthalmology exam was within the past 12 months Last Podiatry exam was more than 12 months ago Past medical history, appointments, medications, allergies reviewed. Previous Medical History PAST MEDICAL HISTORY Diagnosis Date - Abdominal pain, unspecified site - Acute gastritis 08/07/2009 - Allergy, unspecified not elsewhere classified - Diffuse cystic mastopathy - Diverticulosis of colon (without mention of hemorrhage) Diverticulosis - Empty sella (HCC) - Endometriosis s/p SUNIL BSO - Esophageal reflux - Esophagitis - Heart murmur - Hiatal hernia 08/07/2009 - Hot flashes due to menopause - Hypothyroidism - Morbid obesity (HCC) - Multiple thyroid nodules yearly US - Myalgia and myositis, unspecified - Pulmonary fibrosis (HCC) 2016 minor in right lung - Pulmonary hypertension Seen by Dr. Brar - Rheumatoid arthritis(714.0) - Superficial thrombophlebitis - Type II or unspecified type diabetes mellitus without mention of complication, not stated as uncontrolled - Unspecified asthma(493.90) - Unspecified chronic bronchitis (HCC) Chronic bronchitis - Unspecified essential hypertension Previous Surgical History PAST SURGICAL HISTORY Procedure Laterality Date - APPENDECTOMY 1966 - EGD W/O BRSH SPECIMEN W/BX 08/07/09 HH, gastritis - EGD W/O OR W/BRUSH/WASH 10/19/13 EGD - FNA WITH IMAGING 03/26/2010 U/S FNA right thyroid x 1 and left x 2 - LAPAROSCOPY DIAGNOSTIC endometriosis - PAST SURGICAL HISTORY OF 09/30/2015 Right heart cath, Left heart cath, left ventriculogram, coronary arteriography - [place] ANESTH,TOTAL KNEE ARTHROPLASTY Right 2017 - REMOVAL OF OVARY/TUBE(S) 1987 Salpingo-oophorectomy - REMOVAL OF TONSILS,<12 Y/O Tonsillectomy - TOTAL ABDOM HYSTERECTOMY 1987 Hysterectomy, SUNIL for benign tumor Family History FAMILY HISTORY Problem Relation Age of Onset - Heart Father - Thyroid Father - Heart Mother - Pulmonary fibrosis [OTHER] Mother IPF? - Cancer Paternal Grandfather bone cancer-multiple myeloma - Cancer Maternal Grandfather liver - Cancer Paternal Aunt lungs - Cancer Paternal Uncle lung and brain - Heart Sister in her sleep - Thyroid Sister - Cancer Brother pancreatic - Heart Brother in his sleep - Diabetes Sister - a fib [OTHER] Sister Patient Allergies ALLERGIES Allergen Reactions - Amoxicillin Diarrhea - Glucophage Xr [Metf* Diarrhea, GI Upset Bloating - Cymbalta [Duloxetin* Other: See Comments Neuropathy , electrical shocks - Glipizide Unknown - Nexium [Esomeprazol* Other: See Comments Ineffective - Omeprazole Other: See Comments Ineffective - Protonix [Pantopraz* Other: See Comments Ineffective - Altace [Ramipril] Other: See Comments Blurred vision - Zantac [Ranitidine * Rash, Itching Current Medications Current Outpatient Prescriptions on File Prior to Visit: cholecalciferol (VITAMIN D-3) 5,000 unit tab Take 5,000 Units by mouth once daily. estradiol (VIVELLE-DOT) 0.1 mg/24 hr Apply 1 Patch as directed once each week. losartan (COZAAR) 25 mg tablet Take 0.5 tablets by mouth once daily. fluticasone (FLONASE) 50 mcg/actuation nasal spray Use 2 Sprays in each nostril once daily. levothyroxine (LEVOXYL) 50 mcg tablet Take 1 tablet by mouth once daily. Insulin Odem, Disposable, (NOVOFINE 30) 30 gauge x 1/3 ndle 1 Device once daily. potassium chloride (KLOR-CON 10) 10 mEq tablet Take 2 tablets by mouth twice daily. triamterene-hydrochlorothiazide (MAXZIDE-25) 37.5-25 mg per tablet TAKE 1/2 TABLET BY MOUTH ONCE DAILY VICTOZA 2-COCO 0.6 mg/0.1 mL (18 mg/3 mL) pnij INJECT 1.2 MILLIGRAM(S) BY SUBCUTANEOUS ROUTE , 1 TIME PER DAY , FOR 30 DAYS rosuvastatin (CRESTOR) 20 mg tablet Take 20 mg by mouth once daily. lansoprazole (PREVACID) 30 mg capsule Take 1 capsule by mouth once daily. amLODIPine (NORVASC) 10 mg tablet Take 1 tablet by mouth once daily. Psyllium (METAMUCIL) powd Take by mouth. MULTIVITAMIN TAB Take one(1) tablet daily. No current facility-administered medications on file prior to visit. 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 Social History Main Topics Smoking status: Never Smoker Smokeless tobacco: Never Used Comment: Father smoked in childhood home. ETS when visiting 2 sisters. Alcohol use: Yes Comment: Occasional glass of wine. Drug use: No Social History Narrative Sister in law Anushka Ornelas 7 brothers and sisters, Elizabeth Owens and Petar Ornelas FATHER had CABG [address] Pulido Review of Symptoms REVIEW OF SYSTEMS GENERAL: No weight loss, malaise or fevers RESPIRATORY: Negative for cough, hemoptysis, wheezing, COPD, dyspnea or shortness of breath CARDIOVASCULAR: Negative for chest pain, leg swelling, hypertension, CHF or palpitations GI: No nausea, vomiting, or diarrhea : No history of dysuria, frequency or incontinence TOY MECHANIC: Negative for abnormal vaginal bleeding, abnormal vaginal discharge SKIN: Negative for lesions, rash, and itching EXAM: BP 108/68 Pulse 74 Resp 16 Wt 108.9 kg (240 lb) BMI 45.35 kg/m? General Appearance: Well appearing, alert, in no acute distress, well-hydrated, well nourished.. Skin: Skin color, texture, turgor normal, no suspicious rashes or lesions. Back:no pain to palpation of vertebrae, good flexion and extension, good range of motion, reflexes are 2+ and symmetric, motor and sensory appear to be normal, no evidence of scoliosis. Positive for TTP over lower right thoracic paraspinal muscles with spasm. Lungs: Lungs clear to auscultation. No wheezing, rhonchi, rales. Heart: RRR without murmur, gallop, or rubs. No ectopy. Abdomen: Abdomen soft. Bowel sounds normal. No masses, organomegaly, Negative CVA tenderness, Positive findings: tenderness mild generalized without guarding/rebound. Negative Tripathi's sign. Extremities: No deformities, edema, skin discoloration, clubbing or cyanosis. Good capillary refill. . Health Maintenance List DIABETIC FOOT EXAM due on 08/04/2017 FECAL OCCULT BLOOD due on 10/27/2017 INFLUENZA(Season Ended) due on 07/01/2018 LDL due on 07/07/2018 HBA1C due on 09/08/2018 URINE ALBUMIN CREATININE RATIO due on 03/08/2019 DILATED RETINAL EXAM due on 03/10/2019 MAMMOGRAM due on 03/22/2019 DTAP,TDAP,TD(2 - Td) due on 10/21/2026 BONE DENSITY Completed ADULT PREVNAR-13 Completed HEPATITIS C SCREENING Completed Data reviewed Component Latest Ref Rng AND Units 07/07/2017 08/17/2017 03/08/2018 WBC 3.70 - 11.00 k/uL 11.69 (H) 11.55 (H) RBC 3.90 - 5.20 m/uL 4.70 4.75 Hemoglobin 11.5 - 15.5 g/dL 14.2 14.5 Hematocrit 36.0 - 46.0 % 42.5 42.9 MCV 80.0 - 100.0 fL 90.4 90.3 MCH 26.0 - 34.0 pG 30.2 30.5 MCHC 30.5 - 36.0 g/dL 33.4 33.8 RDW-CV 11.5 - 15.0 % 13.3 13.2 Platelet Count 150 - 400 k/uL 312 324 MPV 9.0 - 12.7 fL 10.1 10.3 Neut% % 63.0 Abs Neut (ANC) 1.45 - 7.50 k/uL 7.36 Lymph% % 26.4 Abs Lymph 1.00 - 4.00 k/uL 3.09 Baldwin% % 6.4 Abs Baldwin 0.00 - 0.86 k/uL 0.75 Eosin% % 3.4 Abs Eosin 0.00 - 0.45 k/uL 0.40 Baso% % 0.8 Abs Baso 0.00 - 0.10 k/uL 0.09 Nucleated Reds 0 /100 WBC 0.0 Absolute nRBC <0.01 k/uL 0.00 <0.01 Diff Type Auto Diff Protein, Total 6.3 - 8.0 g/dL 7.9 8.4 (H) Albumin 3.9 - 4.9 g/dL 4.4 4.7 Calcium 8.5 - 10.2 mg/dL 9.4 10.0 Bilirubin, Total 0.2 - 1.3 mg/dL 0.4 0.5 Alkaline Phosphatase 32 - 117 U/L 74 60 AST 13 - 35 U/L 18 18 Glucose 74 - 99 mg/dL 119 (H) 99 BUN 7 - 21 mg/dL 15 22 (H) Creatinine 0.58 - 0.96 mg/dL 0.69 0.70 Sodium 136 - 144 mmol/L 137 136 Potassium 3.7 - 5.1 mmol/L 3.9 3.8 4.1 Chloride 97 - 105 mmol/L 99 95 (L) CO2 22 - 30 mmol/L 27 26 Anion Gap 9 - 18 mmol/L 11 15 ALT 7 - 38 U/L 17 14 eGFR- >60 >60 eGFR-All Other Races . >60 >60 Triglyceride 30 - 149 mg/dL 119 Cholesterol, Total 100 - 199 mg/dL 169 HDL Cholesterol >55 mg/dL 56 VLDL Cholesterol 6 - 40 mg/dL 24 LDL Cholesterol 60 - 129 mg/dL 89 Fasting Time hrs 12 TC:HDL Ratio 1.00 - 5.00 3.02 LDL:HDL Ratio 0.50 - 3.55 1.59 Non HDL Cholesterol 90 - 159 mg/dL 113 Creatinine, Ur Random (UCRR) 20 - 300 mg/dL 82.7 Albumin, Urine Random 0.0 - 23.0 mg/L <12.0 <12.0 Albumin/Creat Ratio 0 - 30 mg/g Not calculated Hemoglobin A1C 4.3 - 5.6 % 5.9 (H) 6.1 (H) Estimated Average Glucose mg/dL 123 128 TSH 0.400 - 5.500 uU/mL 1.480 Magnesium 1.7 - 2.3 mg/dL 2.0 ASSESSMENT/PLAN: 1. Controlled type 2 diabetes mellitus without complication, without long-term current use of insulin (HCC) - ICD9: 250.00, ICD10: E11.9 (primary diagnosis) Controlled. - Continue current medications - Blood glucose monitoring on a once a day schedule - Encouraged regular aerobic exercise and weight loss - Daily Asprin therapy recommended - Follow up in 6 months, sooner should any other issues arise. - HGB A1C - COMP METABOLIC PANEL - LIPID PANEL BASIC 2. Thrombophlebitis of superficial veins of right lower extremity - ICD9: 451.0, ICD10: I80.01 Will refer to vascular surgery for chronic thrombophlebitis and varicose veins. - CONSULT TO VASCULAR SURGERY 3. Chronic right-sided thoracic back pain - ICD9: 724.1, 338.29, ICD10: M54.6, G89.29 - Ice for localized tenderness - Warm moist heat for 20 min three times a day - Muscle relaxant- see orders - PT consult - Patient given instructions use of medications as ordered, intermittent rest, back care exercise program, weight loss, improved posture, proper lifting techniques, intermittent use of heat and self massage - CYCLOBENZAPRINE 5 MG TABLET - CONSULT TO PHYSICAL THERAPY - XR THORACIC GENERAL 3V AP/LAT/SWIMMERS - XR LUMBAR GENERAL 3V AP/LAT/L5-S1 4. RUQ abdominal pain - ICD9: 789.01, ICD10: R10.11 Suspect radicular from back based on exam, chronicity, and exacerbation with movement and position. Will see if symptoms improve with regimen for back. 5. Essential hypertension - ICD9: 401.9, ICD10: I10 - good control - Continue current medication(s) - Encouraged dietary sodium restriction/DASH diet - Recommended regular aerobic exercise. - Reviewed risks of HTN and principles of treatment - Goal of BP <140/90 6. Hypothyroidism, unspecified type - ICD9: 244.9, ICD10: E03.9 - continue current dose of Synthroid 0.050 mg 7. Gastroesophageal reflux disease without esophagitis - ICD9: 530.81, ICD10: K21.9 Controlled on prevacid. Francine Reid MD Referring Provider: FRANCINE REID) [[id number]] Allergies As of Date: 03/31/2018 Noted Allergy Reaction AMOXICILLIN 02/21/2009 6 - Diarrhea GLUCOPHAGE XR (METFORMIN HCL) 03/29/2007 6 - Diarrhea 8 - GI Upset Comments: Bloating CYMBALTA (DULOXETINE) 06/28/2017 14 - Other: See Comments Comments: Neuropathy , electrical shocks GLIPIZIDE 06/28/2017 16 - Unknown NEXIUM (ESOMEPRAZOLE MAGNESIUM) 08/04/2016 14 - Other: See Comments Comments: Ineffective OMEPRAZOLE 08/04/2016 14 - Other: See Comments Comments: Ineffective PROTONIX (PANTOPRAZOLE SODIUM) 08/04/2016 14 - Other: See Comments Comments: Ineffective ALTACE (RAMIPRIL) 08/04/2005 14 - Other: See Comments Comments: Blurred vision ZANTAC (RANITIDINE HCL) 08/04/2005 2 - Rash 9 - Itching Date Reviewed: 03/31/2018 Reviewed by: Wilfred Fontana Ma - Fully Assessed Reason for Visit: 2 week follow up [Other] Cmt: right side pain, discuss DM Primary Visit Diagnosis:Controlled type 2 diabetes mellitus without complication, without long-term current use of insulin (HCC) [E11.9] Other Visit Diagnoses:Thrombophlebitis of superficial veins of right lower extremity [I80.01] Chronic right-sided thoracic back pain [M54.6, G89.29] RUQ abdominal pain [R10.11] Essential hypertension [I10] Hypothyroidism, unspecified type [E03.9] Gastroesophageal reflux disease without esophagitis [K21.9] Order(s):CONSULT TO VASCULAR SURGERY [9042] Order #: [id number]: 1 cyclobenzaprine (FLEXERIL) 5 mg tabletTake 1 tablet by mouth three times daily as needed for Muscle Spasm.Disp: 30 tabletRfl: 1 CONSULT TO PHYSICAL THERAPY [9077] Order #: [id number]: 1 XR THORACIC GENERAL 3V AP/LAT/SWIMMERS [2008039] Order #: [id number] FUTURE XR LUMBAR GENERAL 3V AP/LAT/L5-S1 [1829810] Order #: [id number] FUTURE HGB A1C [SHLOM1Y] Order #: [id number] FUTURE COMP METABOLIC PANEL [SQCMP] Order #: [id number] FUTURE LIPID PANEL BASIC [SQLIPB] Order #: [id number] FUTURE Prescriptions as of 03/31/2018 Sig: CYCLOBENZAPRINE 5 MG TABLET Take 1 tablet by mouth three * CHOLECALCIFEROL (VITAMIN D3) * Take 5,000 Units by mouth onc* ESTRADIOL 0.1 MG/24 HR SEMIWE* Apply 1 Patch as directed onc* LOSARTAN 25 MG TABLET Take 0.5 tablets by mouth onc* FLUTICASONE 50 MCG/ACTUATION * Use 2 Sprays in each nostril * LEVOTHYROXINE 50 MCG TABLET Take 1 tablet by mouth once d* PEN NEEDLE, DIABETIC 30 GAUGE* 1 Device once daily. POTASSIUM CHLORIDE ER 10 MEQ * Take 2 tablets by mouth twice* TRIAMTERENE 37.5 MG-HYDROCHLO* TAKE 1/2 TABLET BY MOUTH ONCE* VICTOZA 2-COCO 0.6 MG/0.1 ML (* INJECT 1.2 MILLIGRAM(S) BY PULLIAM* ROSUVASTATIN 20 MG TABLET Take 20 mg by mouth once della* LANSOPRAZOLE 30 MG CAPSULE,DE* Take 1 capsule by mouth once * AMLODIPINE 10 MG TABLET Take 1 tablet by mouth once d* PSYLLIUM ORAL POWDER Take by mouth. MULTIVITAMIN TABLET Take one(1) tablet daily. Problem List As Of Date 03/31/2018 Noted Resolved Type II or unspecified type diabetes mellitus w* 07/27/2014 Rheumatoid arthritis (HCC) [M06.9] More... More... ASTHMA UNSPECIFIED [J45.909] More... More... Diffuse cystic mastopathy [N60.19] 08/04/2016 HYPERTENSION NOS [I10] 08/05/2015 ALLERGY, UNSPECIFIED [T78.40XA] HYPERLIPIDEMIA NEC/NOS [E78.5] INVALID FOR* Sprain and strain of unspecified site of should*INVALID FOR*08/04/2016 More... OBESITY [E66.9] INVALID FOR*02/06/2015 Multinodular goiter (nontoxic) [E04.2] INVALID FOR* More... Abdominal pain [R10.9] INVALID FOR*10/19/2013 GERD (Gastroesophageal Reflux Disease) [K21.9] INVALID FOR* Abdominal pain, unspecified site [R10.9] INVALID FOR*10/17/2013 BMI 45.0-49.9, adult [Z68.42] INVALID FOR* DM w/ coma type II, uncontrolled (HCC) [E11.69,*INVALID FOR*07/27/2014 Diabetes mellitus type 2, controlled, without c*INVALID FOR* More... Chronic rheumatic arthritis (HCC) [M06.9] INVALID FOR*08/04/2016 Depression [F32.9] INVALID FOR* Vitamin D deficiency [E55.9] INVALID FOR* Essential hypertension [I10] Hypothyroidism [E03.9] Prescriptions ordered this encounter Disp Refills Start End CYCLOBENZAPRINE 5 MG TABLET 30 t* 1 03/31/2018 Route: ORAL Sig: Take 1 tablet by mouth three times daily as needed for Muscle Spasm. Disposition: Return in about 6 months (around 09/30/2018). Follow-up and Disposition History Recorded Encounter Status:Closed by FRANCINE REID MD on 03/31/18 SURGERY VISIT REPORT Observed: 03/29/2018 Status: F Source: [place] 2:34 PM [facility] REPOSITORY [facility] [address] [place] [address] OFFICE VISIT Date of Service: 03/29/18 MR#: [id number] Acct: [id number] Name: MACY DOWNEY Rep #: [id number] : 1950 Provider: Rusty Sawyer MD Age/Sex: 67/F Location: [facility] Status: Signed Intake Intake Visit Reasons: Right thyroid FNA Chief Complaint: right thyroid FNA Shank Pinner Required: No Is patient in pain?: No Allergies amoxicillin Allergy (Verified 03/24/18 11:31) Unknown duloxetine [From Cymbalta] Allergy (Verified 03/24/18 11:31) neuropathy losartan [Losartan] Allergy (Verified 03/24/18 11:31) Unknown ramipril Allergy (Verified 03/24/18 11:31) Unknown ranitidine HCl [From Zantac] Allergy (Verified 03/24/18 11:31) Unknown celecoxib [From Celebrex] Adverse Reaction (Verified 03/24/18 11:31) Upset Stomach cortisone Adverse Reaction (Verified 03/24/18 11:31) emotional issues glimepiride Adverse Reaction (Verified 03/24/18 11:31) Nausea/Vom/Diarrhea metformin HCl [From Glucophage] Adverse Reaction (Verified 03/24/18 11:31) Nausea/Vom/Diarrhea methotrexate Adverse Reaction (Verified 03/24/18 11:31) Unknown Penicillins Adverse Reaction (Verified 03/24/18 11:31) Nausea/Vom/Diarrhea Medications Estradiol [Vivelle-Dot] 1 ea TD QWEEK 09/29/15 [History Confirmed 03/24/18] Fluticasone 0.05% [Flonase Nasal Reagan] 1 spray NASAL DAILY PRN 09/29/15 [History Confirmed 03/24/18] Lansoprazole [Prevacid] 30 mg PO BID 09/29/15 [History Confirmed 03/24/18] Levothyroxine Sodium [Levoxyl] 50 mcg PO DAILY 09/29/15 [History Confirmed 03/24/18] Loratadine [Claritin] 10 mg PO PRN PRN 09/29/15 [History Confirmed 03/24/18] Multivitamins,Therapeutic [Multivitamin] 1 tab PO DAILY 09/29/15 [History Confirmed 03/24/18] Potassium Chloride [Klor-Con 10] 20 meq PO BID 09/29/15 [History Confirmed 03/24/18] Psyllium Seed (with Sugar) [Metamucil Powder] 575 gm PO DAILY PRN 09/29/15 [History Confirmed 03/24/18] Triamterene/Hydrochlorothiazid [Triamterene-Hctz 37.5-25 mg Tb] 0.5 tab PO QHS 09/29/15 [History Confirmed 03/24/18] Cholecalciferol (Vitamin D3) [Vitamin D3] 5,000 unit PO DAILY 08/24/17 [History Confirmed 03/24/18] Liraglutide [Victoza] 1.25 mg SQ 1300 08/24/17 [History Confirmed 03/24/18] Rosuvastatin Calcium [Crestor] 20 mg PO QHS 08/24/17 [History Confirmed 03/24/18] amlodipine 10 mg tablet 10 mg PO DAILY #90 tab 02/27/18 [Rx Confirmed 03/24/18] Ibuprofen 800 mg PO BID 03/24/18 [History Confirmed 03/24/18] Losartan Potassium [Cozaar] 12.5 mg PO DAILY 03/24/18 [History Confirmed 03/24/18] Is last menstrual period known: No Post menopausal: Yes Patient : No PFSH Medical History Multiple thyroid nodules (Acute) Screening for intestinal cancer (Acute) GERD (gastroesophageal reflux disease) (Acute) Chest pain, unspecified (Chronic) HTN (hypertension) (Chronic) Left carotid artery stenosis (Chronic) HLD (hyperlipidemia) (Chronic) Diabetes mellitus (Chronic) Fatigue (Chronic) Visual disturbance (Chronic) Pulmonary hypertension (Chronic) Surgical History S/P thyroid biopsy (Acute 02/2018) Family History Father CAD (coronary artery disease) Ischemic cardiomyopathy Mother Atrial fibrillation CHF (congestive heart failure) Pulmonary fibrosis Sister Myocardial infarction Diabetes Gilliam disease COPD (chronic obstructive pulmonary disease) Hypertension Brother Cancer Pancreatic CA Diabetes Atrial fibrillation Social History Smoking Status: Never smoker alcohol intake: current alcohol intake frequency: holidays/special occasions only Alcohol type: wine substance use type: does not use caffeine: Yes Type: coffee what type of physical activity do you participate in: other details: physical therapy frequency: 1-2 times per week duration: 45-60 minutes/day seatbelt use: always do you feel safe at home: Yes HPI HPI HPI: MACY DOWNEY, is a 67 F who presents to the office today for right thyroid final aspiration Office Procedures Fine Needle Aspiration Provider Documentation Details: Ultrasound-guided final aspiration dominant right thyroid nodule Timeout and informed consent was obtained. 67-year-old female was taken to the procedure room. Placed on the table. The right neck was sterilely prepped draped with Betadine. Under ultrasound guidance the dominant nodule involving most of the right lobe of the thyroid was identified. 1% lidocaine mixed 50-50 with 0.5% Marcaine was instilled under ultrasound guidance. Then a 25-gauge needle was advanced into the lesion and a rapid [id number] motion was performed. Specimen was obtained and smeared out on slides. 2 separate passes with a 25-gauge needle and 2 separate passes with a 23-gauge needle was performed. Hemostasis was nicely intact. The slides were treated with fixative. She was given activity wound care instructions. Rusty Sawyer M.D., F.A.C.S. Procedure Time Out Time Out Informed consent given: Yes Consent signed: Yes Time out checklist: patient, procedure, site marked/identified, positioning of patient, supplies available, allergies confirmed, team agrees on procedure Time out staff in room: Yes Time out verified: Yes Time out date: 03/29/18 Time out time: 13:45 Assessment AND Plan Problems 1. Multiple thyroid nodules E04.2 Plan The patient will be notified of cytology results of her right thyroid nodule and available. She does have other medical comorbidities I will notify her of results as they become available. Rusty Sawyer M.D., F.A.C.S. Orders Orders: Coding Level of Care Code No Charge Diagnoses Multiple thyroid nodules E04.2 03/29/18 1434 <Electronically signed by Rusty Sawyer MD> Date Rusty Perez Signature: Date (if applicable) CC: ASPIRATION (SLIDES Observed: 03/29/2018 Status: F Source: WIN ONLY) 1:30 PM [facility] REPOSITORY Patient: MACY DOWNEY : 1950 (/) Acct Num: [id number] Phys: Rusty Sawyer MD Unit Num: [id number] Loc: LABSPEC Specimen: [id number] Received: 03/30/18 - 1018 Spec Type: ASPIRATION TISSUES TISSUES: Thyroid gland, NOS CYTOLOGY GROSS Received are eight smears labeled with the patient's name and designated per the requisition as right thyroid. Submitted for staining. / 03/30/18 TC:5 CPT: 59239 CYTOLOGY STUDY Slides are reviewed. DIAGNOSIS CYTOLOGY Fine needle aspiration, right thyroid nodule (smears): Adequate for evaluation. Negative, consistent with benign follicular nodule. AM:armaan 03/31/18 HEADER OPERATION: Right thyroid FNA PRE-OP DIAGNOSIS: Right thyroid nodule TISSUE SUBMITTED: Right thyroid, 8 slides Signed Jurgen [facility] 03/31/18 <signature on file> Performed By: #### PASRENEE #### [facility] [address], [address] OPERATIVE REPORT Observed: 03/28/2018 Status: F Source: WIN 8:29 AM [facility] REPOSITORY [facility] Medical Records Department [address] [place] [address] Operative Report 03/28/18 0816 MR#: [id number] Acct: [id number] Name: MACY DOWNEY VERONICA Rep #: [id number] : 1950 67 From: Rusty Sawyer MD PCP: Evert Reid MD Status: REG [facility] Y Location: [place] [address] Problem List (1) GERD (gastroesophageal reflux disease) Status: Acute Qualifiers: Esophagitis presence: with esophagitis Qualified Code(s): K21.0 - Gastro-esophageal reflux disease with esophagitis (2) Screening for intestinal cancer Status: Acute Report of Operation Date of Procedure: 03/28/18 Pre-Operative Diagnosis: Intractable gastroesophageal reflux disease. Screening for intestinal cancer Post-Operative Diagnosis: Hiatal hernia with distal esophagitis. Mild antral gastritis. Normal-appearing colon. Grade 2 internal hemorrhoids Surgery/Procedure Performed:: Esophagogastroduodenoscopy with cold forcep antral and distal esophageal biopsies. Colonoscopy Description of Surgical Findings:: Timeout and informed consent was obtained. 67-year-old female was taken to the endoscopy suite. Her oropharynx anesthetized with Cetacaine. She was placed in the left lateral decubitus position. She underwent monitored anesthesia care. Her oropharynx is nice with Topex. Flexible gastroscope was inserted and supplemental inlet. Proximal midesophagus not remarkable. EG junction was foreshortened at 35 cm and a small hiatal hernia noted. Findings were consistent with some mild reflux. Scope was advanced to the stomach. Diffuse erythema particularly of the antrum of the stomach noted. More of a chronic condition. Scope was advanced through the pylorus. the first and second portions of the duodenum were inspected. This was not remarkable. Scope was withdrawn back in the stomach retroflexed. The hiatal hernia noted. The cardia was not remarkable. Greater and lesser curvatures were normal. The scope was advanced back down to the antrum where a cold forceps biopsy the antrum was obtained. Excess fluid and air was aspirated free the scope was withdrawn to the distal esophagus. Distal esophageal biopsies were obtained. Then the scope was further withdrawn. Distal esophageal cold forcep biopsies were obtained of the clinical reflux. Hemostasis was nicely intact. The scope was further withdrawn without additional abnormality. The patient was kept in a left lateral decubitus position. Digital rectal exam demonstrated moderate internal/external hemorrhoids. Extraordinarily lax tone. The scope was advanced through the rectum sigmoid transverse colon was easily advanced to the cecum. The cecum and ileocecal valve area was nicely achieved. Bowel prep was adequate there was some liquid stool that needed to be aspirated. The scope was withdrawn from the cecum and ascending colon transverse colon descending colon and rectum. No acute abnormalities noted. The scope was retroflexed in the rectum . Grade 2 nonbleeding internal hemorrhoids noted. Excess fluid and air was aspirated free the procedure was completed with the patient tolerating it well. Impression Mild antral gastritis. Small hiatal hernia with findings of distal reflux esophagitis. Antral and distal esophageal biopsies pending. Normal-appearing colon. Do not have evidence of a previous colonoscopy. Next screening colonoscopy in 10 years. She will be notified of pathology results as they become available. It is likely that although she is on lansoprazole for reflux that the prednisone therapy that she was administered as aggravated her reflux disease. Conservative measures will be recommended. Colonoscopy was started at 0803. This sequence was dated 06/05 0.1. The procedure was completed at 0812.53. Rusty Sawyer M.D., F.A.C.S. Type of Anesthesia:: MAC 03/28/18 0829 <Electronically signed by Rusty Sawyer MD> Date Rusty Sawyer MD CC: Evert Weller MD; Evert Reid MD; Rusty Sawyer MD Signed EGD ([facility]) Observed: 03/28/2018 Status: F Source: [place]WN 7:56 AM [facility] REPOSITORY Patient: MACY DOWNEY : 1950 (67/F) Acct Num: [id number] Phys: Silverio JARVIS,Rusty Unit Num: [id number] Loc: EN Specimen: [id number] Received: 03/28/18 - 1015 Spec Type: EGD BIOPSY TISSUES TISSUES: A. Gastric mucous membrane B. Esophageal mucous membrane COMMENT A. The results of immunohistochemistry for Helicobacter pylori will be reported separately ([id number]). GROSS DESCRIPTION A - Received in fixative is one container labeled with the patient's name and designated antral biopsy. The specimen consists of one irregular fragment of light garcía soft tissue that measures 0.4 x 0.3 x 0.1 cm. The specimen is totally submitted in one cassette. B - Received in fixative is one container labeled with the patient's name and designated distal esophageal biopsy. The specimen consists of multiple irregular fragments of light garcía soft tissue that in aggregate measure 0.5 x 0.3 x 0.1 cm. The specimen is totally submitted in one cassette. / SJ:armaan 03/28/18 TC:3 CPT: 37896 x2 HEADER OPERATION: EGD with biopsy PRE-OP DIAGNOSIS: GERD, esophagitis TISSUE SUBMITTED: A Antral biopsy for H. pylori and path, B Distal esophageal biopsies MICROSCOPIC DESCRIPTION Slides are reviewed. A. The specimen shows fragments of gastric mucosa with chronic inflammatory cell infiltrates in the lamina propria consisting of lymphocytes and plasma cells, consistent with mild chronic gastritis. A minute lymphoid aggregate is also noted, favor benign. MICROSCOPIC DIAGNOSIS A. Antral biopsy: Mild gastritis. See microscopic description and comment. B. Distal esophageal biopsy: Fragments of squamous epithelium with minimal chronic inflammation. SJ:armaan 03/29/18 Signed Juve Pinzon 03/29/18 <signature on file> Performed By: #### PEGD #### [facility] [address] [place], [address] BEDSIDE GLUCOSE Collected: 03/28/2018 Status: F Source: WIN 7:27 AM [facility] REPOSITORY TYPE CODE TESTS RESULT OUT OF RANGE REFERENCE UNITS LAB L501.080 70-110 mg/dL Normal BEDSIDE GLU 110 Result Comment: MANAGEMENT OF PATIENT CARE PER NURSING PROTOCOL Performed By: #### L501.080 #### [facility] Point of Care [address] [place] [address] IMMUNOHISTOCHEMISTRY Observed: 03/28/2018 Status: F Source: WIN 12:00 AM [facility] REPOSITORY Patient: MACY DOWNEY : 1950 (67/F) Acct Num: [id number] Phys: Silverio JARVIS,Rusty Unit Num: [id number] Loc: EN Specimen: [id number] Received: 03/29/18 - 1140 Spec Type: IMMUNO TISSUES TISSUES: A. Stomach, NOS SPECIMEN INFORMATION: Tissue Source: A Antral biopsy Clinical Info: GERD, esophagitis Specimen Number: [id number] CPT code: 87967 METHODOLOGY: Deparaffinized sections of prefer/formalin-fixed tissue or PAP/DQ stained slides are incubated with monoclonal/polyclonal antibodies/oligonucleotide probes. Localization is made via biotin free immunoperoxidase method. Appropriate controls are performed and reacted as expected. Results on target cell population are indicated in the following table: RESULTS: ANTIBODY / CLONE RESULT Block A H Pylori (polyclonal) negative These tests were developed and their performance characteristics determined by [facility]. They may not have been cleared or approved by the U.S. Food and Drug Administration. The FDA has determined that such clearance or approval is not necessary. INTERPRETATION: A. Antral biopsy: Negative for Helicobacter pylori organisms. SJ:armaan 03/31/18 PHYSICIAN AND INSTITUTION [place] [phone] Signed Juve Pinzon 04/06/18 <signature on file> Performed By: #### PIMM #### [facility] [address] [place] [address]. [place], [address] PROGRESS Observed: 03/23/2018 Status: COMPLETED Source: [place] 9:[address] [facility] REPOSITORY HNO ID: [id number] Author: Nicol Blancas LPN Service: (none) Author Type: (none) Type: Progress Notes Filed: 03/23/2018 9:27 AM Note Text: WatchGuard message sent with results/ instructions. CNCO Observed: 03/22/2018 Status: COMPLETED Source: [place] 3:[address] [facility] REPOSITORY HNO ID: [id number] Author: Mammography Coordinator Service: (none) Author Type: Physician Type: Letter Filed: 03/23/2018 11:32 PM Note Text: March 22, 2018 PID: [id number] Macy Downey [address] [place] [address] Dear Ms. Downey, We are pleased to inform you that the results of your recent breast imaging exam on 03/22/2018 are normal. Your mammogram demonstrates that you have dense breast tissue, which could hide abnormalities. Dense breast tissue, in and of itself, is a relatively common condition. Therefore, this information is not provided to cause undue concern; rather, it is to raise your awareness and promote discussion with your health care provider regarding the presence of dense breast tissue in addition to other risk factors. Early detection of cancer is very important. We also understand recommendations regarding breast cancer screening are controversial. Please discuss with your primary care provider which strategy is best for you and whether a mammogram is right for you. Your imaging studies and report will be kept on file at [facility] as part of your permanent medical record and are available for your continuing care. Thank you for allowing us to help in meeting your health care needs. Sincerely, Dr. Cuello Interpreting Radiologist [facility] (Normal over 40) BD DXA - AXIAL Observed: 03/22/2018 Status: F Source: [place] 1:59 PM [facility] REPOSITORY * * *Final Report* * * DATE OF EXAM: Mar 22 2018 1:59PM [facility] 0804 - BD DXA - AXIAL [place] B / PROCEDURE REASON: multiple diagnoses * * * * Physician Interpretation * * * * PROCEDURE: BD DXA - AXIAL [place] INDICATION: Asymptomatic menopausal state Encounter for screening for osteoporosis Menopausal and female climacteric states TECHNIQUE: Low dose AP spine and hip images COMPARISON: 09/09/2004 LUMBAR SPINE: The bone mineral density from L1 through L4 is 1.209 grams per square centimeter which yields a T-score of 1.5. . LEFT HIP: The bone mineral density of the total region of the hip is 1.209 grams per square centimeter which yields a T-score of 2.2. . LEFT FEMORAL NECK: The bone mineral density of the femoral neck is 1.054 grams per square centimeter which yields a T-score of 1.8. . RIGHT HIP: The bone mineral density of the total region of the hip is 1.151 grams per square centimeter which yields a T-score of 1.7. . RIGHT FEMORAL NECK: The bone mineral density of the femoral neck is 0.893 grams per square centimeter which yields a T-score of 0.4. . 10-year Fracture Risk (FRAX): Major osteoporotic fracture risk 5.7% Hip fracture risk 0.1% IMPRESSION: Normal. Accurate comparison to the prior study cannot be made due to dissimilar scan types or analysis methods [facility]. CLASSIFICATION OF BONE MASS CLASSIFICATION T-SCORE Normal Greater than -1 Low Bone Mass Between -1 and -2.5 (Osteopenia) Osteoporosis Less than or equal to -2.5 Digital Media Intern: LARRY Transcribe Date/Time: Mar 22 2018 3:18P Dictated by : HUSEYIN BASHIR MD This examination was interpreted and the report reviewed and electronically signed by: HUSEYIN BASHIR MD on Mar 22 2018 3:19PM EST [id number] Observed: 03/22/2018 Status: COMPLETED Source: [place] 1:38 PM [facility] REPOSITORY HNO ID: [id number] Author: Gary Alexander (Rt) Kayla Chappell Service: (none) Author Type: Retail Sales Director Type: Progress Notes Filed: 03/22/2018 1:43 PM Note Text: Radiology Service Progress Note PATIENT NAME: Macy Downey DATE OF SERVICE: March 22, 2018 TIME: 1:38 PM PATIENT IDENTITY VERIFICATION COMPLETED USING TWO (2) METHODS: Patient confirmed name verbally and Date of . PATIENT GENDER DATA: Female. status: : No status: NO. PATIENT RELEVANT IMPLANT DATA REVIEWED: Not Applicable RADIOLOGY DEPARTMENT: [facility] bone density PERIPHERAL IV DATA: Not applicable SIGNED BY: RT Oziel March 22, 2018 1:38 PM [place] SCREENING Observed: 03/22/2018 Status: F Source: [place] 1:[address] [facility] REPOSITORY * * *Final Report* * * DATE OF EXAM: Mar 22 2018 1:37PM [facility] 0581 - [facility] SCREENING / PROCEDURE REASON: Encounter for screening mammogram for malignant neoplasm of breast * * * * Physician Interpretation * * * * RESULT: #[id number] - [facility] SCREENING BILATERAL DIGITAL SCREENING MAMMOGRAM WITH CAD: 03/22/2018 HISTORY: Encounter For Screening Mammogram For Malignant Neoplasm Of Breast /patient reports no breast symptoms /priors available for comparison. RESULT: TECHNIQUE: The study was acquired using full field digital technology and interpreted from soft copy. Current study was also evaluated with a Computer Aided Detection (CAD). Comparison is made to exams dated: 09/20/2016 mammogram, 08/13/2015 mammogram - [facility], 08/06/2014 mammogram, and 04/04/2013 mammogram - [facility]. The tissue of both breasts is heterogeneously dense. This may lower the sensitivity of mammography. There are benign calcifications in both breasts. No significant masses, calcifications, or other findings are seen in either breast. There has been no significant interval change. IMPRESSION: BENIGN FINDING There is no mammographic evidence of malignancy. A 1 year screening mammogram is recommended. Elsie Cuello M.D., ch/lcaudia:03/22/2018 15:03:37 Component Engineer: Kathy DAVILA(R)(Shad), [facility] letter sent: Normal over 40 Mammogram BI-RADS: 2 Benign finding Digital Media Intern: Claudia Transcribe Date/Time: Mar 22 2018 1:22P Dictated by: ELSIE CUELLO MD This examination was interpreted and the report reviewed and electronically signed by: ELSIE CUELLO MD on Mar 22 2018 3:03PM EST [id number] PROGRESS Observed: 03/22/2018 Status: COMPLETED Source: [place] 1:21 PM [facility] REPOSITORY O ID: [id number] Author: Dominique Davila Service: (none) Author Type: (none) Type: Progress Notes Filed: 03/22/2018 1:42 PM Note Text: Radiology Service Progress Note PATIENT NAME: Macy Downey DATE OF SERVICE: March 22, 2018 TIME: 1:21 PM PATIENT IDENTITY VERIFICATION COMPLETED USING TWO (2) METHODS: Patient confirmed name verbally and Date of . PATIENT GENDER DATA: Female. status: : No status: NO. PATIENT RELEVANT IMPLANT DATA REVIEWED: Not Applicable RADIOLOGY DEPARTMENT: [facility] mammogram PERIPHERAL IV DATA: Not applicable SIGNED BY: Dominique Davila March 22, 2018 1:21 PM CARDIOLOGY VISIT Observed: 03/21/2018 Status: F Source: [place] 3:47 PM [facility] REPOSITORY [facility] [address] [place] [address]. [address] [place] [address] OFFICE VISIT Date of Service: 10/14/17 MR#: [id number] Acct: [id number] Name: MACY DOWNEY VERONICA Rep #: [id number] : 1950 Provider: Hernesto Brar MD Age/Sex: 67/F [place] [facility] [place]: Signed HPI 6 M FU: Details: MACY DOWNEY, is a 67 F who presents to the office today for for outpatient cardiovascular follow-up with concerns of post right knee replacement surgery chest discomfort, dyspnea, intermittent cyanotic lips and finger nailbeds, right lower extremity edema and prominent right lower extremity varicose veins, and lightheadedness. The patient states that since her right knee replacement surgery in early August she had been doing well until approximately 2-3 weeks post her right knee replacement surgery, around the time her anticoagulation was discontinued, when she began to have the aforementioned symptoms. She notes she has intermittent chest discomfort where she feels that she will lay her hand over her chest based upon the sensation in her chest. This sensation comes and goes. It is relatively brief. It sometimes may radiate towards the left shoulder. It can be associated with shortness of breath. She states when she does take a deep breath she does get some element of chest discomfort. She has noted that there are times when her lips are blue and her fingernail beds are blue. She states that time she is active and feels well and at other times upon standing she begins to feel lightheaded. She will sit down to feel better. She has not lost consciousness. She notes her right lower extremity is somewhat more edematous than pre-surgery. She also notes her right lower extremity varicose veins are more prominent than previous surgery. She states that she went through physical therapy and has good range of motion. However since physical therapy she has had discomfort in her right groin area, right lower abdominal area, and right lower back area. She notes she had some of these discomforts intermittently prior to her surgery but they appear to be more prominent now. She has not had orthopnea or PND. She is unclear whether she is really noted any true palpitations. Again she has not lost consciousness. She had a 12-lead ECG performed in the office today. She was in sinus rhythm. She had poor R-wave progression. There was left navarro axis. In comparison to a previous ECG from 09/15/2015 there appear to be similar type findings. She did have a transthoracic echocardiogram performed in September 2016. At that time her left ventricle was normal. Her LVEF was 65%. The left atrium was mildly enlarged. She had trivial MR and trivial TR. There was mild focal aortic valve thickening. Her estimated right ventricular systolic pressure was 25 mmHg. In May 2015 she had a myocardial perfusion study performed via the [facility]. At that time it was reported as a normal perfusion study with no evidence of infarct or ischemia. However, based upon a variety of concerns, she underwent a diagnostic cardiac catheterization in September 2015. At that time her left ventricle was thought to be normal. She had elevated left ventricular end-diastolic pressure. She had evidence of secondary pulmonary hypertension with mild to moderate elevation of her intrapulmonary and right heart pressures at that time. Her oxygen saturation demonstrated no obvious evidence of intracardiac shunting. Her left ventricle was normal with an LVEF of 65%. Her left main coronary artery is normal. Her LAD had proximal minimal luminal irregularities. The LCx was normal. The RCA was a moderate to large dominant vessel and was normal. She had trace MR. She also had a carotid artery duplex study performed at the [facility] center in July 2015. According to the report the left internal carotid artery did demonstrate an element of stenosis of approximately 40-59%. Intake Vital Signs10/14/17 Height 5 ft 1.5 in 10/14/17 Weight: 225 lb 10/14/17 Body Mass Index (BMI) 41.8 10/14/17 Blood Pressure 120/72 10/14/17 Blood Pressure Location Lt brachial Intake Visit Reasons: 6 M Shank Pinner Required: No Accompanied by: Is patient in pain?: Yes (Right leg and groin area, Total right knee replacement) Pain scale (1-10): 2 Allergies amoxicillin Allergy (Verified 10/14/17 11:44) Unknown duloxetine [From Cymbalta] Allergy (Verified 10/14/17 11:44) neuropathy losartan [Losartan] Allergy (Verified 10/14/17 11:44) Unknown ramipril Allergy (Verified 10/14/17 11:44) Unknown ranitidine HCl [From Zantac] Allergy (Verified 10/14/17 11:44) Unknown celecoxib [From Celebrex] Adverse Reaction (Verified 10/14/17 11:44) Upset Stomach cortisone Adverse Reaction (Verified 10/14/17 11:44) emotional issues glimepiride Adverse Reaction (Verified 10/14/17 11:44) Nausea/Vom/Diarrhea metformin HCl [From Glucophage] Adverse Reaction (Verified 10/14/17 11:44) Nausea/Vom/Diarrhea methotrexate Adverse Reaction (Verified 10/14/17 11:44) Unknown Penicillins Adverse Reaction (Verified 10/14/17 11:44) Nausea/Vom/Diarrhea Medications Amlodipine [Norvasc] 10 mg PO DAILY 09/29/15 [History Confirmed 10/14/17] Estradiol [Vivelle-Dot] 1 ea TD QWEEK 09/29/15 [History Confirmed 08/24/17] Fluticasone 0.05% [Flonase Nasal Reagan] 1 spray NASAL DAILY PRN 09/29/15 [History Confirmed 10/14/17] Lansoprazole [Prevacid] 30 mg PO DAILY PRN 09/29/15 [History Confirmed 10/14/17] Levothyroxine Sodium [Levoxyl] 50 mcg PO DAILY 09/29/15 [History Confirmed 10/14/17] Loratadine [Claritin] 10 mg PO PRN PRN 09/29/15 [History Confirmed 08/24/17] Multivitamins,Therapeutic [Multivitamin] 1 tab PO DAILY 09/29/15 [History Confirmed 08/24/17] Potassium Chloride [Klor-Con 10] 20 meq PO BID 09/29/15 [History Confirmed 10/14/17] Psyllium Seed (with Sugar) [Metamucil Powder] 575 gm PO DAILY PRN 09/29/15 [History Confirmed 08/24/17] Triamterene/Hydrochlorothiazid [Triamterene-Hctz 37.5-25 mg Tb] 0.5 tab PO QHS 09/29/15 [History Confirmed 10/14/17] Cholecalciferol (Vitamin D3) [Vitamin D3] 2,000 unit PO DAILY 08/24/17 [History Confirmed 08/24/17] Liraglutide [Victoza] 1.25 mg SQ 1300 08/24/17 [History Confirmed 10/14/17] Rosuvastatin Calcium [Crestor] 20 mg PO QHS 08/24/17 [History Confirmed 08/24/17] Acetaminophen [Tylenol] 1,000 mg PO Q8 #90 tab 09/08/17 [Rx] Oxycodone [Oxyir] 5 - 10 mg PO Q4H PRN PRN #80 tab 09/08/17 [Rx] Rivaroxaban [Xarelto] 10 mg PO DAILY@0600 #12 tab 09/08/17 [Rx] Senna/Docusate Sodium [Senokot-S] 2 tab PO BID #20 tab 09/08/17 [Rx] Ejection fraction %: 65 to 70 PFSH Medical History Lightheadedness (Acute) Chest pain, unspecified (Chronic) HTN (hypertension) (Chronic) Left carotid artery stenosis (Chronic) HLD (hyperlipidemia) (Chronic) Diabetes mellitus (Chronic) Fatigue (Chronic) Visual disturbance (Chronic) Pulmonary hypertension (Chronic) Family History Father CAD (coronary artery disease) Ischemic cardiomyopathy Mother Atrial fibrillation CHF (congestive heart failure) Pulmonary fibrosis Sister Myocardial infarction Diabetes Gilliam disease COPD (chronic obstructive pulmonary disease) Hypertension Brother Cancer Pancreatic CA Diabetes Atrial fibrillation Social History Smoking Status: Never smoker alcohol intake: current alcohol intake frequency: holidays/special occasions only Alcohol type: wine substance use type: does not use caffeine: Yes Type: coffee what type of physical activity do you participate in: other details: physical therapy frequency: 1-2 times per week duration: 45-60 minutes/day seatbelt use: always do you feel safe at home: Yes ROS Const Const: Positive for headache(s); negative for weakness, body ache, fever(s), chills, frequent falls, night sweats, daytime sleepiness, difficulty sleeping, weight gain, weight loss, increased appetite, poor appetite, anorexia, other, fatigue or excessive sweating Eyes Eyes: Negative for blind spots, loss of peripheral vision, transient loss of vision, blurry vision, change in vision, double vision, floaters, tunnel vision or other ENT ENT: Negative for dizziness, Positive for headache(s), Negative for balance problems Cardio Chest Pain: Yes Frequency: daily Character: tightness Onset: positional Location: left chest Duration: brief Exacerbation: positional Relieving: rest Recurrence: positional Palpitations: Positive for Yes Edema: Bilateral Muscle aches with walking: Right Resp Respiratory: Negative for SOB with activity, SOB at rest, SOB orthopnea\SOB lying down, Coughing up blood/hemoptysis, chest congestion, pain on inspiration, snoring, stridor, wheezing, crackles, paroxysmal nocturnal dyspnea or other GI GI: Positive for nausea, vomiting and heartburn; negative constipation, belching, bloating, cramping, vomiting blood/hematemesis, bright, red blood in stools, black,tarry stools, loose stools, Difficulty Swallowing or other : Negative for hematuria, frequent nighttime urination/ nocturia, erectile dysfunction or abnormal vaginal bleeding Musc Musc: Positive for muscle aches/ myalgia; negative for muscle weakness, joint pain or balance problems Skin Skin: Negative redness, non-healing lesions, rash, unusual bruising, skin ulcer, wounds, jaundice or other Neuro Neuro: Negative for dizziness, Positive for lightheadedness, Positive for near syncope, Negative for syncope, Negative for orthostatic symptoms, Negative for confusion, Negative for memory loss, Negative for restless legs, Negative for vertigo, Negative for seizures, Negative for lack of coordination, Negative for other, Negative for blurry vision, Negative for double vision, Negative for weakness, Positive for headache(s), Negative for frequent falls Ed Hematologic/Lymphatic: Negative for easy bleeding, easy bruising, enlarged lymph nodes or other Endo Endo: Negative for fatigue, cold intolerance, heat intolerance, excessive sweating, flushing, increased thirst/drinking, increased hunger, hair loss, hair growth or other Psych Psych: Negative for anxiety, depression, thoughts of harming anyone, thoughts of harming yourself, visual hallucinations, panic attacks or audible hallucinations Allergy Allergy/Immunology: Negative for rash Cardiology Exam Const Appearance: cooperative, healthy appearing, comfortable, no acute distress, well developed and well groomed Nutritional Appearance: overweight Orientation: alert, awake and oriented x3 Head Head: normal to inspection, normocephalic and atraumatic Ears: hearing grossly normal bilaterally Nose: external nose normal Mouth: oral mucosae normal Teeth and gingiva: dentition normal Eyes General: appearance normal, both eyes and all related structures Eyelids: eyelids normal Conjunctivae: conjunctivae normal Pupils: PERRL EOM: EOM intact bilaterally Neck Neck: normal visual inspection Carotids: normal carotid upstroke Chest Chest inspection: normal inspection of the chest and symmetric chest movement Auscultation: Bilateral: Clear to Auscultation Cardio Palpation: normal PMI Rate: regular rate Rhythm: regular rhythm Heart sounds: S1 normal, S2 normal and positive S4 Murmur: Grade 2/6, harsh, mid systolic, LLSB, LVOT and sternal notch GI GI: normal to inspection, soft, no hepatosplenomegaly and bowel sounds present Neuro General: alert, awake and oriented x3 Skin Skin: no rashes or lesions noted Extremities Lower Extremity Edema: +1: Right Right Lower Extremity: Prominent Varicose Veins. Musculoskel Musculoskeletal: joint tenderness Right Hip: Tenderness Psych Psychological: normal affect Assessment AND Plan 1. Chest pain, unspecified type R07.9; R07.9 Plan At the present time her chest pain is somewhat atypical with respect to classic underlying atherosclerotic coronary artery disease and myocardial ischemia. This would be somewhat unlikely to develop and progress in such a short period of time since her recent evaluation 2 years ago. Her symptoms also appear to be not classically compatible with an underlying inflammatory process such as an underlying pericarditis. Her symptoms are concerning for a possible postprocedural related thromboembolic events with DVT/PE. Thus, at the present time, she is going to be evaluated from a noncardiac standpoint for the possibility of an underlying thromboembolic event. Based upon her history and her exam she will have a combination of a venous duplex study performed as well as a chest CT scan performed. Depending upon the findings she may or may not need further evaluation and/or therapy. Certainly if she does have underlying thromboembolic disease she will need to return to anticoagulant therapy. As she proceeds with her evaluation if she has worsening symptoms or adverse events she was told to report to the hospital for further evaluation. Orders Orders: 2. Pulmonary HTN I27.20 Plan She does have a history of pulmonary hypertension. Based upon her most recent noninvasive studies her estimated RV systolic pressure was within normal range. This will be reassessed with an echocardiogram to evaluate for any obvious significant changes that would indicate a change in her underlying pulmonary status being related to her history of pulmonary hypertension or the possibility of thromboembolic disease. 3. Essential hypertension I10; I10; I10 Plan Her blood pressure appears to be stable. She will continue medical management and follow-up. 4. Hyperlipidemia, unspecified hyperlipidemia type E78.5; E78.5; E78.5 Plan She will continue evaluation and care as deemed appropriate. 5. Diabetes mellitus E11.9 Plan She will continue to follow with her primary care physician for this. 6. Left carotid artery stenosis I65.22 Plan She does have a history of left carotid artery stenosis. She will need to continue to follow with her primary care physician for this. 7. Lightheadedness R42 Plan The etiology of her lightheadedness is uncertain. This may not be cardiovascular related. She is not convinced it is related to underlying ectopy or dysrhythmias. There would be a concern if she did have thromboembolic disease that it could be related to that and/or change in her oxygenation status. Thus she will continue evaluation as noted above. Plan Detail Additional Comments Again, the above was discussed with the patient with her spouse present. She was agreeable to the aforementioned evaluation. If she has worsening symptoms or adverse events then she needs to report to the nearest emergency department in the interim. Thank you for allowing me to participate in the care of your patient. Please don't hesitate to call if any issues arise This note was generated using a voice recognition system and there may be incorrect words, spelling or punctuation that were not noted when reviewing the office note prior to saving. Follow Up 6 Months (PFM) 10/14/17 0249 <Electronically signed by Hernesto Brar MD> Date Hernesto Brar MD Cosigner Signature: Date (if applicable) CC: PROGRESS Observed: 03/13/2018 Status: COMPLETED Source: [place] 3:11 PM [facility] [place] REPOSITORY [facility] ID: [id number] Author: Francine Turner) Jeanette Service: (none) Author Type: Physician Type: Progress Notes Filed: 03/14/2018 12:23 PM Note Text: Chief Complaint Patient presents with: Physical: establish - ringing in left ear HPI Macy Downey is a 67 year old female who presents here today for Above Complaints. Previously seeing Dr. Wiley and has been in to see myself for joint issues and preoperative clearance since that time. Patient states that right knee replacement went well and is now pain free. Finished with PT, but is still following up with Dr. Abdi regarding some chronic right foot pain and right arm pain which she obtained cortisone injections for and may have contributed to her mild elevation in A1C. Still has pain in the right calf from the superficial thrombophlebitis. Only treating with NSAIDs in the last 6 months. Has not been placing warm compresses. States that she has noticed more veins popping out and called Dr. Rusty Sawyer regarding surgical correction, but told he does not do that at their office and was given referral to vascular surgery which she has not scheduled. Dr. Sawyer was able to order a repeat US of her thyroid which showed nodules which will require biopsy. Has appointment for biopsy scheduled on 03/29. Seen by physician in [place] over the winter and had blood work drawn 2 months ago which was normal aside from mildly elevated glucose @ 129 with A1C @ 5.4. CBC, lipid panel, CMP, and TSH normal otherwise. Due for mammogram and DXA scan. Up to date on immunizations. Past medical history, appointments, medications, allergies reviewed. Previous Medical History PAST MEDICAL HISTORY Diagnosis Date - Abdominal pain, unspecified site - Acute gastritis 08/07/2009 - Allergy, unspecified not elsewhere classified - Diaphragmatic hernia without mention of obstruction or gangrene Hiatal hernia - Diffuse cystic mastopathy - Diverticulosis of colon (without mention of hemorrhage) Diverticulosis - Empty sella (HCC) - Esophageal reflux - Esophagitis - Hiatal hernia 08/07/2009 - Hypothyroidism - Multiple thyroid nodules - Myalgia and myositis, unspecified - Pulmonary hypertension Seen by Dr. Brar - Rheumatoid arthritis(714.0) - Superficial thrombophlebitis - Type II or unspecified type diabetes mellitus without mention of complication, not stated as uncontrolled - Unspecified asthma(493.90) - Unspecified chronic bronchitis (HCC) Chronic bronchitis - Unspecified essential hypertension Previous Surgical History PAST SURGICAL HISTORY Procedure Laterality Date - APPENDECTOMY 1966 - EGD W/O BRSH SPECIMEN W/BX 08/07/09 HH, gastritis - EGD W/O OR W/BRUSH/WASH 10/19/13 EGD - FNA WITH IMAGING 03/26/2010 U/S FNA right thyroid x 1 and left x 2 - PAST SURGICAL HISTORY OF 09/30/2015 Right heart cath, Left heart cath, left ventriculogram, coronary arteriography - REMOVAL OF OVARY/TUBE(S) 1987 Salpingo-oophorectomy - REMOVAL OF TONSILS,<12 Y/O Tonsillectomy - TOTAL ABDOM HYSTERECTOMY 1988 Hysterectomy, SUNIL Family History FAMILY HISTORY Problem Relation Age of Onset - Heart Father - Heart Mother - Cancer Paternal Grandfather bone cancer - Cancer Maternal Grandfather liver - Cancer Paternal Aunt lungs - Cancer Paternal Uncle lung and brain - Pulmonary fibrosis [Other] [OTHER] Mother IPF? - Heart Sister in her sleep - Cancer Brother pancreatic - Heart Brother in his sleep Patient Allergies ALLERGIES Allergen Reactions - Amoxicillin Diarrhea - Glucophage Xr [Metf* Diarrhea, GI Upset Bloating - Cymbalta [Duloxetin* Other: See Comments Neuropathy , electrical shocks - Glipizide Unknown - Nexium [Esomeprazol* Other: See Comments Ineffective - Omeprazole Other: See Comments Ineffective - Protonix [Pantopraz* Other: See Comments Ineffective - Altace [Ramipril] Other: See Comments Blurred vision - Zantac [Ranitidine * Rash, Itching Current Medications Current Outpatient Prescriptions on File Prior to Visit: fluticasone (FLONASE) 50 mcg/actuation nasal spray Use 2 Sprays in each nostril once daily. levothyroxine (LEVOXYL) 50 mcg tablet Take 1 tablet by mouth once daily. Insulin Odem, Disposable, (NOVOFINE 30) 30 gauge x 1/3 ndle 1 Device once daily. potassium chloride (KLOR-CON 10) 10 mEq tablet Take 2 tablets by mouth twice daily. triamterene-hydrochlorothiazide (MAXZIDE-25) 37.5-25 mg per tablet TAKE 1/2 TABLET BY MOUTH ONCE DAILY clotrimazole (ANTIFUNGAL, CLOTRIMAZOLE,) 1 % cream Apply 1 application to affected area twice daily. VICTOZA 2-COCO 0.6 mg/0.1 mL (18 mg/3 mL) pnij INJECT 1.2 MILLIGRAM(S) BY SUBCUTANEOUS ROUTE , 1 TIME PER DAY , FOR 30 DAYS rosuvastatin (CRESTOR) 20 mg tablet Take 20 mg by mouth once daily. estradiol (CLIMARA) 0.1 mg/24 hr Apply 1 Patch as directed once each week. lansoprazole (PREVACID) 30 mg capsule Take 1 capsule by mouth once daily. amLODIPine (NORVASC) 10 mg tablet Take 1 tablet by mouth once daily. Psyllium (METAMUCIL) powd Take by mouth. MULTIVITAMIN TAB Take one(1) tablet daily. levothyroxine (SYNTHROID) 50 mcg tablet TAKE 1 TABLET BY MOUTH ONCE DAILY. (Patient not taking: Reported on 03/13/2018) ergocalciferol, vitamin D2, 2,000 unit tab Take 2,000 mg by mouth. meloxicam (MOBIC) 7.5 mg tablet Take 1 tablet by mouth once daily. Take with food. (Patient not taking: Reported on 03/13/2018 ) metFORMIN ER (GLUCOPHAGE XR) 500 mg 24 hr tablet Take 1 tablet by mouth daily with breakfast. (Patient not taking: Reported on 06/28/2017) escitalopram oxalate (LEXAPRO) 10 mg tablet Take 1 tablet by mouth once daily. (Patient not taking: Reported on 06/28/2017) No current facility-administered medications on file prior to visit. 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 Social History Main Topics Smoking status: Never Smoker Smokeless tobacco: Never Used Comment: Father smoked in childhood home. ETS when visiting 2 sisters. Alcohol use: Yes Comment: Occasional glass of wine. Drug use: No Social History Narrative Sister in law Anushka Ornelas 7 brothers and sisters, Elizabeth Owens and Petar Ornelas FATHER had CABG [address] Pulido Review of Symptoms REVIEW OF SYSTEMS GENERAL: No weight loss, malaise or fevers NECK: Negative for lumps, goiter, pain and significant neck swelling RESPIRATORY: Negative for cough, hemoptysis, wheezing, COPD, dyspnea or shortness of breath CARDIOVASCULAR: Negative for chest pain, leg swelling, hypertension, CHF or palpitations GI: No nausea, vomiting, or diarrhea MUSCULOSKELETAL: See HPI SKIN: Negative for lesions, rash, and itching EXAM: BP 138/78 Pulse 88 Resp 18 Ht 154.9 cm (5' 1) Wt 109.8 kg (242 lb) BMI 45.73 kg/m? General Appearance: Well appearing, alert, in no acute distress, well-hydrated, well nourished.. Skin: Skin color, texture, turgor normal, no suspicious rashes or lesions. Lungs: Lungs clear to auscultation. No wheezing, rhonchi, rales. Heart: RRR without murmur, gallop, or rubs. No ectopy. Abdomen: Normal abdominal exam, Abdomen soft, non-tender. Bowel sounds normal. No masses, organomegaly. Extremities: No deformities, edema, skin discoloration, clubbing or cyanosis. Good capillary refill. . Health Maintenance List BONE DENSITY due on 2016 DIABETIC FOOT EXAM due on 08/04/2017 MAMMOGRAM due on 09/20/2017 FECAL OCCULT BLOOD due on 10/27/2017 INFLUENZA(Season Ended) due on 07/01/2018 LDL due on 07/07/2018 HBA1C due on 09/08/2018 URINE ALBUMIN CREATININE RATIO due on 03/08/2019 DILATED RETINAL EXAM due on 03/10/2019 DTAP,TDAP,TD(2 - Td) due on 10/21/2026 ADULT PREVNAR-13 Completed HEPATITIS C SCREENING Completed Data reviewed Component Latest Ref Rng AND Units 07/07/2017 08/17/2017 01/18/2018 03/08/2018 WBC 3.70 - 11.00 k/uL 11.69 (H) 11.55 (H) RBC 3.90 - 5.20 m/uL 4.70 4.75 Hemoglobin 11.5 - 15.5 g/dL 14.2 14.5 Hematocrit 36.0 - 46.0 % 42.5 42.9 MCV 80.0 - 100.0 fL 90.4 90.3 MCH 26.0 - 34.0 pG 30.2 30.5 MCHC 30.5 - 36.0 g/dL 33.4 33.8 RDW-CV 11.5 - 15.0 % 13.3 13.2 Platelet Count 150 - 400 k/uL 312 324 MPV 9.0 - 12.7 fL 10.1 10.3 Neut% % 63.0 Abs Neut (ANC) 1.45 - 7.50 k/uL 7.36 Lymph% % 26.4 Abs Lymph 1.00 - 4.00 k/uL 3.09 Baldwin% % 6.4 Abs Baldwin 0.00 - 0.86 k/uL 0.75 Eosin% % 3.4 Abs Eosin 0.00 - 0.45 k/uL 0.40 Baso% % 0.8 Abs Baso 0.00 - 0.10 k/uL 0.09 Nucleated Reds 0 /100 WBC 0.0 Absolute nRBC <0.01 k/uL 0.00 <0.01 Diff Type Auto Diff Protein, Total 6.3 - 8.0 g/dL 7.9 8.4 (H) Albumin 3.9 - 4.9 g/dL 4.4 4.7 Calcium 8.5 - 10.2 mg/dL 9.4 10.0 Bilirubin, Total 0.2 - 1.3 mg/dL 0.4 0.5 Alkaline Phosphatase 32 - 117 U/L 74 60 AST 13 - 35 U/L 18 18 Glucose 74 - 99 mg/dL 119 (H) 99 BUN 7 - 21 mg/dL 15 22 (H) Creatinine 0.58 - 0.96 mg/dL 0.69 0.70 Sodium 136 - 144 mmol/L 137 136 Potassium 3.7 - 5.1 mmol/L 3.9 3.8 4.1 Chloride 97 - 105 mmol/L 99 95 (L) CO2 22 - 30 mmol/L 27 26 Anion Gap 9 - 18 mmol/L 11 15 ALT 7 - 38 U/L 17 14 eGFR- >60 >60 eGFR-All Other Races . >60 >60 Triglyceride 30 - 149 mg/dL 119 Cholesterol, Total 100 - 199 mg/dL 169 HDL Cholesterol >55 mg/dL 56 VLDL Cholesterol 6 - 40 mg/dL 24 LDL Cholesterol 60 - 129 mg/dL 89 Fasting Time hrs 12 TC:HDL Ratio 1.00 - 5.00 3.02 LDL:HDL Ratio 0.50 - 3.55 1.59 Non HDL Cholesterol 90 - 159 mg/dL 113 Creatinine, Ur Random (UCRR) 20 - 300 mg/dL 82.7 Albumin, Urine Random 0.0 - 23.0 mg/L <12.0 <12.0 Albumin/Creat Ratio 0 - 30 mg/g Not calculated Hemoglobin A1C 4.3 - 5.6 % 5.9 (H) 5.4 6.1 (H) Estimated Average Glucose mg/dL 123 128 TSH 0.400 - 5.500 uU/mL 1.480 Magnesium 1.7 - 2.3 mg/dL 2.0 ASSESSMENT/PLAN: 1. Thrombophlebitis of superficial veins of right lower extremity - ICD9: 451.0, ICD10: I80.01 (primary diagnosis) Repeat US of right lower extremity, continue NSAIDs and advised warm compresses daily to BID. Follow up with vascular surgery. - US LEG VEIN DVT UNL VAS LAB 2. Essential hypertension - ICD9: 401.9, ICD10: I10 - good control - Continue current medication(s) - Encouraged dietary sodium restriction/DASH diet - Recommended regular aerobic exercise. - Reviewed risks of HTN and principles of treatment - Goal of BP <140/90 3. Hypothyroidism, unspecified type - ICD9: 244.9, ICD10: E03.9 - continue current dose of Synthroid 4. Screening mammogram, encounter for - ICD9: V76.12, ICD10: Z12.31 - Set up for mammogram, yearly mammogram recommended - Follow up for annual exam in one year. - HOLLIS SCREENING 5. Controlled type 2 diabetes mellitus without complication, without long-term current use of insulin (HCC) - ICD9: 250.00, ICD10: E11.9 Controlled. - Continue current medications - Blood glucose monitoring on a twice a day schedule - Encouraged regular aerobic exercise and weight loss - Daily Asprin therapy recommended - Follow up in 2 weeks, sooner should any other issues arise. - LOSARTAN 25 MG TABLET 6. Screening for osteoporosis - ICD9: V82.81, ICD10: Z13.820 - DXA-AXIAL SKELETON 7. Hot flash, menopausal - ICD9: 627.2, ICD10: N95.1 Patient previously taking Vivelle-Dot. Discussed risks with advancing age including increased risk of stroke. Patient willing to discontinue and see if symptoms persist or worsen. If so, may try switch to plavix. - DXA-AXIAL SKELETON 8. Asymptomatic menopausal state - ICD9: V49.81, ICD10: Z78.0 - DXA-AXIAL SKELETON 9. Gastroesophageal reflux disease without esophagitis - ICD9: 530.81, ICD10: K21.9 - Continue treatment with Prevacid. Discussed briefly some right side pain which has been chronic, will see back in 2 weeks to further discuss pain and go over DM symptoms. Francine Reid MD CNOV Observed: 03/13/2018 Status: COMPLETED Source: [place] 3:[address] [facility] REPOSITORY [facility] MACY DOWNEY ([id number]) 1950 F Date Time Provider Department 03/13/18 3:00 PM FRANCINE REID) MARIA ISABEL During your visit today, we recorded the following information about you: Pulse Respiration Blood pressure Weight 88/minute 18/minute 138/78 109.8 kg Height 1.549 m Francine Reid MD 03/14/2018 12:23 PM Signed Chief Complaint Patient presents with: Physical: establish - ringing in left ear HPI Macy Downey is a 67 year old female who presents here today for Above Complaints. Previously seeing Dr. Wiley and has been in to see myself for joint issues and preoperative clearance since that time. Patient states that right knee replacement went well and is now pain free. Finished with PT, but is still following up with Dr. Abdi regarding some chronic right foot pain and right arm pain which she obtained cortisone injections for and may have contributed to her mild elevation in A1C. Still has pain in the right calf from the superficial thrombophlebitis. Only treating with NSAIDs in the last 6 months. Has not been placing warm compresses. States that she has noticed more veins popping out and called Dr. Rusty Sawyer regarding surgical correction, but told he does not do that at their office and was given referral to vascular surgery which she has not scheduled. Dr. Sawyer was able to order a repeat US of her thyroid which showed nodules which will require biopsy. Has appointment for biopsy scheduled on 03/29. Seen by physician in [place] over the winter and had blood work drawn 2 months ago which was normal aside from mildly elevated glucose @ 129 with A1C @ 5.4. CBC, lipid panel, CMP, and TSH normal otherwise. Due for mammogram and DXA scan. Up to date on immunizations. Past medical history, appointments, medications, allergies reviewed. Previous Medical History PAST MEDICAL HISTORY Diagnosis Date - Abdominal pain, unspecified site - Acute gastritis 08/07/2009 - Allergy, unspecified not elsewhere classified - Diaphragmatic hernia without mention of obstruction or gangrene Hiatal hernia - Diffuse cystic mastopathy - Diverticulosis of colon (without mention of hemorrhage) Diverticulosis - Empty sella (HCC) - Esophageal reflux - Esophagitis - Hiatal hernia 08/07/2009 - Hypothyroidism - Multiple thyroid nodules - Myalgia and myositis, unspecified - Pulmonary hypertension Seen by Dr. Brar - Rheumatoid arthritis(714.0) - Superficial thrombophlebitis - Type II or unspecified type diabetes mellitus without mention of complication, not stated as uncontrolled - Unspecified asthma(493.90) - Unspecified chronic bronchitis (HCC) Chronic bronchitis - Unspecified essential hypertension Previous Surgical History PAST SURGICAL HISTORY Procedure Laterality Date - APPENDECTOMY 1967 - EGD W/O BRSH SPECIMEN W/BX 08/07/09 HH, gastritis - EGD W/O OR W/BRUSH/WASH 10/19/13 EGD - FNA WITH IMAGING 03/26/2010 U/S FNA right thyroid x 1 and left x 2 - PAST SURGICAL HISTORY OF 09/30/2015 Right heart cath, Left heart cath, left ventriculogram, coronary arteriography - REMOVAL OF OVARY/TUBE(S) 1987 Salpingo-oophorectomy - REMOVAL OF TONSILS,<13 Y/O Tonsillectomy - TOTAL ABDOM HYSTERECTOMY 1987 Hysterectomy, SUNIL Family History FAMILY HISTORY Problem Relation Age of Onset - Heart Father - Heart Mother - Cancer Paternal Grandfather bone cancer - Cancer Maternal Grandfather liver - Cancer Paternal Aunt lungs - Cancer Paternal Uncle lung and brain - Pulmonary fibrosis [Other] [OTHER] Mother IPF? - Heart Sister in her sleep - Cancer Brother pancreatic - Heart Brother in his sleep Patient Allergies ALLERGIES Allergen Reactions - Amoxicillin Diarrhea - Glucophage Xr [Metf* Diarrhea, GI Upset Bloating - Cymbalta [Duloxetin* Other: See Comments Neuropathy , electrical shocks - Glipizide Unknown - Nexium [Esomeprazol* Other: See Comments Ineffective - Omeprazole Other: See Comments Ineffective - Protonix [Pantopraz* Other: See Comments Ineffective - Altace [Ramipril] Other: See Comments Blurred vision - Zantac [Ranitidine * Rash, Itching Current Medications Current Outpatient Prescriptions on File Prior to Visit: fluticasone (FLONASE) 50 mcg/actuation nasal spray Use 2 Sprays in each nostril once daily. levothyroxine (LEVOXYL) 50 mcg tablet Take 1 tablet by mouth once daily. Insulin Odem, Disposable, (NOVOFINE 30) 30 gauge x 1/3 ndle 1 Device once daily. potassium chloride (KLOR-CON 10) 10 mEq tablet Take 2 tablets by mouth twice daily. triamterene-hydrochlorothiazide (MAXZIDE-25) 37.5-25 mg per tablet TAKE 1/2 TABLET BY MOUTH ONCE DAILY clotrimazole (ANTIFUNGAL, CLOTRIMAZOLE,) 1 % cream Apply 1 application to affected area twice daily. VICTOZA 2-COCO 0.6 mg/0.1 mL (18 mg/3 mL) pnij INJECT 1.2 MILLIGRAM(S) BY SUBCUTANEOUS ROUTE , 1 TIME PER DAY , FOR 30 DAYS rosuvastatin (CRESTOR) 20 mg tablet Take 20 mg by mouth once daily. estradiol (CLIMARA) 0.1 mg/24 hr Apply 1 Patch as directed once each week. lansoprazole (PREVACID) 30 mg capsule Take 1 capsule by mouth once daily. amLODIPine (NORVASC) 10 mg tablet Take 1 tablet by mouth once daily. Psyllium (METAMUCIL) powd Take by mouth. MULTIVITAMIN TAB Take one(1) tablet daily. levothyroxine (SYNTHROID) 50 mcg tablet TAKE 1 TABLET BY MOUTH ONCE DAILY. (Patient not taking: Reported on 03/13/2018) ergocalciferol, vitamin D2, 2,000 unit tab Take 2,000 mg by mouth. meloxicam (MOBIC) 7.5 mg tablet Take 1 tablet by mouth once daily. Take with food. (Patient not taking: Reported on 03/13/2018 ) metFORMIN ER (GLUCOPHAGE XR) 500 mg 24 hr tablet Take 1 tablet by mouth daily with breakfast. (Patient not taking: Reported on 06/28/2017) escitalopram oxalate (LEXAPRO) 10 mg tablet Take 1 tablet by mouth once daily. (Patient not taking: Reported on 06/28/2017) No current facility-administered medications on file prior to visit. 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 Social History Main Topics Smoking status: Never Smoker Smokeless tobacco: Never Used Comment: Father smoked in childhood home. ETS when visiting 2 sisters. Alcohol use: Yes Comment: Occasional glass of wine. Drug use: No Social History Narrative Sister in law Anushka Ornelas 7 brothers and sisters, Elizabeth Owens and Petar Ornelas FATHER had CABG [address] Pulido Review of Symptoms REVIEW OF SYSTEMS GENERAL: No weight loss, malaise or fevers NECK: Negative for lumps, goiter, pain and significant neck swelling RESPIRATORY: Negative for cough, hemoptysis, wheezing, COPD, dyspnea or shortness of breath CARDIOVASCULAR: Negative for chest pain, leg swelling, hypertension, CHF or palpitations GI: No nausea, vomiting, or diarrhea MUSCULOSKELETAL: See HPI SKIN: Negative for lesions, rash, and itching EXAM: BP 138/78 Pulse 88 Resp 18 Ht 154.9 cm (5' 1) Wt 109.8 kg (242 lb) BMI 45.73 kg/m? General Appearance: Well appearing, alert, in no acute distress, well-hydrated, well nourished.. Skin: Skin color, texture, turgor normal, no suspicious rashes or lesions. Lungs: Lungs clear to auscultation. No wheezing, rhonchi, rales. Heart: RRR without murmur, gallop, or rubs. No ectopy. Abdomen: Normal abdominal exam, Abdomen soft, non-tender. Bowel sounds normal. No masses, organomegaly. Extremities: No deformities, edema, skin discoloration, clubbing or cyanosis. Good capillary refill. . Health Maintenance List BONE DENSITY due on 2016 DIABETIC FOOT EXAM due on 08/04/2017 MAMMOGRAM due on 09/20/2017 FECAL OCCULT BLOOD due on 10/27/2017 INFLUENZA(Season Ended) due on 07/01/2018 LDL due on 07/07/2018 HBA1C due on 09/08/2018 URINE ALBUMIN CREATININE RATIO due on 03/08/2019 DILATED RETINAL EXAM due on 03/10/2019 DTAP,TDAP,TD(2 - Td) due on 10/21/2026 ADULT PREVNAR-13 Completed HEPATITIS C SCREENING Completed Data reviewed Component Latest Ref Rng AND Units 07/07/2017 08/17/2017 01/18/2018 03/08/2018 WBC 3.70 - 11.00 k/uL 11.69 (H) 11.55 (H) RBC 3.90 - 5.20 m/uL 4.70 4.75 Hemoglobin 11.5 - 15.5 g/dL 14.2 14.5 Hematocrit 36.0 - 46.0 % 42.5 42.9 MCV 80.0 - 100.0 fL 90.4 90.3 MCH 26.0 - 34.0 pG 30.2 30.5 MCHC 30.5 - 36.0 g/dL 33.4 33.8 RDW-CV 11.5 - 15.0 % 13.3 13.2 Platelet Count 150 - 400 k/uL 312 324 MPV 9.0 - 12.7 fL 10.1 10.3 Neut% % 63.0 Abs Neut (ANC) 1.45 - 7.50 k/uL 7.36 Lymph% % 26.4 Abs Lymph 1.00 - 4.00 k/uL 3.09 Baldwin% % 6.4 Abs Baldwin 0.00 - 0.86 k/uL 0.75 Eosin% % 3.4 Abs Eosin 0.00 - 0.45 k/uL 0.40 Baso% % 0.8 Abs Baso 0.00 - 0.10 k/uL 0.09 Nucleated Reds 0 /100 WBC 0.0 Absolute nRBC <0.01 k/uL 0.00 <0.01 Diff Type Auto Diff Protein, Total 6.3 - 8.0 g/dL 7.9 8.4 (H) Albumin 3.9 - 4.9 g/dL 4.4 4.7 Calcium 8.5 - 10.2 mg/dL 9.4 10.0 Bilirubin, Total 0.2 - 1.3 mg/dL 0.4 0.5 Alkaline Phosphatase 32 - 117 U/L 74 60 AST 13 - 35 U/L 18 18 Glucose 74 - 99 mg/dL 119 (H) 99 BUN 7 - 21 mg/dL 15 22 (H) Creatinine 0.58 - 0.96 mg/dL 0.69 0.70 Sodium 136 - 144 mmol/L 137 136 Potassium 3.7 - 5.1 mmol/L 3.9 3.8 4.1 Chloride 97 - 105 mmol/L 99 95 (L) CO2 22 - 30 mmol/L 27 26 Anion Gap 9 - 18 mmol/L 11 15 ALT 7 - 38 U/L 17 14 eGFR- >60 >60 eGFR-All Other Races . >60 >60 Triglyceride 30 - 149 mg/dL 119 Cholesterol, Total 100 - 199 mg/dL 169 HDL Cholesterol >55 mg/dL 56 VLDL Cholesterol 6 - 40 mg/dL 24 LDL Cholesterol 60 - 129 mg/dL 89 Fasting Time hrs 12 TC:HDL Ratio 1.00 - 5.00 3.02 LDL:HDL Ratio 0.50 - 3.55 1.59 Non HDL Cholesterol 90 - 159 mg/dL 113 Creatinine, Ur Random (UCRR) 20 - 300 mg/dL 82.7 Albumin, Urine Random 0.0 - 23.0 mg/L <12.0 <12.0 Albumin/Creat Ratio 0 - 30 mg/g Not calculated Hemoglobin A1C 4.3 - 5.6 % 5.9 (H) 5.4 6.1 (H) Estimated Average Glucose mg/dL 123 128 TSH 0.400 - 5.500 uU/mL 1.480 Magnesium 1.7 - 2.3 mg/dL 2.0 ASSESSMENT/PLAN: 1. Thrombophlebitis of superficial veins of right lower extremity - ICD9: 451.0, ICD10: I80.01 (primary diagnosis) Repeat US of right lower extremity, continue NSAIDs and advised warm compresses daily to BID. Follow up with vascular surgery. - US LEG VEIN DVT UNL VAS LAB 2. Essential hypertension - ICD9: 401.9, ICD10: I10 - good control - Continue current medication(s) - Encouraged dietary sodium restriction/DASH diet - Recommended regular aerobic exercise. - Reviewed risks of HTN and principles of treatment - Goal of BP <140/90 3. Hypothyroidism, unspecified type - ICD9: 244.9, ICD10: E03.9 - continue current dose of Synthroid 4. Screening mammogram, encounter for - ICD9: V76.12, ICD10: Z12.31 - Set up for mammogram, yearly mammogram recommended - Follow up for annual exam in one year. - HOLLIS SCREENING 5. Controlled type 2 diabetes mellitus without complication, without long-term current use of insulin (HCC) - ICD9: 250.00, ICD10: E11.9 Controlled. - Continue current medications - Blood glucose monitoring on a twice a day schedule - Encouraged regular aerobic exercise and weight loss - Daily Asprin therapy recommended - Follow up in 2 weeks, sooner should any other issues arise. - LOSARTAN 25 MG TABLET 6. Screening for osteoporosis - ICD9: V82.81, ICD10: Z13.820 - DXA-AXIAL SKELETON 7. Hot flash, menopausal - ICD9: 627.2, ICD10: N95.1 Patient previously taking Vivelle-Dot. Discussed risks with advancing age including increased risk of stroke. Patient willing to discontinue and see if symptoms persist or worsen. If so, may try switch to plavix. - DXA-AXIAL SKELETON 8. Asymptomatic menopausal state - ICD9: V49.81, ICD10: Z78.0 - DXA-AXIAL SKELETON 9. Gastroesophageal reflux disease without esophagitis - ICD9: 530.81, ICD10: K21.9 - Continue treatment with Prevacid. Discussed briefly some right side pain which has been chronic, will see back in 2 weeks to further discuss pain and go over DM symptoms. MD Francine Velazquez MD 03/13/2018 3:48 PM Signed BONE MINERAL DENSITY PATIENT INSTRUCTIONS Bone mineral density testing measures the amount of calcium in certain parts of your bones. This information determines how strong your bones are. The test is used to detect osteoporosis, a disease in which the bone's mineral content and density are low, increasing a person's risk of fractures. The lumbar spine (lower back) and the hip are the skeletal sites usually examined. For the test, remember that: 1. You cannot take this test if you are . 2. Eat a normal diet on the day of the test. 3. Take your medications as you normally would. 4. DO NOT take calcium supplements (such as Tums) for 24 hours before the test. 5. On the day of the test, leave valuables (jewelry or credit cards) at home. 6. The test should be performed prior to oral, rectal or IV contrast studies, or at least 7 days after any of these studies. For the test, you may be asked to wear a hospital gown. You will lie on your back, on a padded table, in a comfortable position. Generally, you can resume your usual activities immediately. Referring Provider: SELF [[id number]] Allergies As of Date: 03/13/2018 Noted Allergy Reaction AMOXICILLIN 02/21/2009 6 - Diarrhea GLUCOPHAGE XR (METFORMIN HCL) 03/29/2007 6 - Diarrhea 8 - GI Upset Comments: Bloating CYMBALTA (DULOXETINE) 06/28/2017 14 - Other: See Comments Comments: Neuropathy , electrical shocks GLIPIZIDE 06/28/2017 16 - Unknown NEXIUM (ESOMEPRAZOLE MAGNESIUM) 08/04/2016 14 - Other: See Comments Comments: Ineffective OMEPRAZOLE 08/04/2016 14 - Other: See Comments Comments: Ineffective PROTONIX (PANTOPRAZOLE SODIUM) 08/04/2016 14 - Other: See Comments Comments: Ineffective ALTACE (RAMIPRIL) 08/04/2005 14 - Other: See Comments Comments: Blurred vision ZANTAC (RANITIDINE HCL) 08/04/2005 2 - Rash 9 - Itching Date Reviewed: 03/13/2018 Reviewed by: Wilfred Fontana Ma - Fully Assessed Reason for Visit: Physical [83] Cmt: establish - ringing in left ear Reason For Visit History Recorded Primary Visit Diagnosis:Thrombophlebitis of superficial veins of right lower extremity [I80.01] Other Visit Diagnoses:Essential hypertension [I10] Hypothyroidism, unspecified type [E03.9] Screening mammogram, encounter for [Z12.31] Controlled type 2 diabetes mellitus without complication, without long-term current use of insulin (HCC) [E11.9] Screening for osteoporosis [Z13.820] Hot flash, menopausal [N95.1] Asymptomatic menopausal state [Z78.0] Gastroesophageal reflux disease without esophagitis [K21.9] Order(s):HBA1C (OUTSIDE) [9327953] Order #: [id number] LEG VEIN DVT UNL VAS LAB [1542232-40] Order #: [id number] FUTURE HOLLIS SCREENING [[id number]] Order #: [id number] FUTURE DXA-AXIAL SKELETON [[id number]] Order #: [id number] FUTURE losartan (COZAAR) 25 mg tabletTake 0.5 tablets by mouth once daily.Disp: 15 tabletRfl: 5 Prescriptions as of 03/13/2018 Sig: CHOLECALCIFEROL (VITAMIN D3) * Take 5,000 Units by mouth onc* ESTRADIOL 0.1 MG/24 HR SEMIWE* Apply 1 Patch as directed onc* FLUTICASONE 50 MCG/ACTUATION * Use 2 Sprays in each nostril * LEVOTHYROXINE 50 MCG TABLET Take 1 tablet by mouth once d* PEN NEEDLE, DIABETIC 30 GAUGE* 1 Device once daily. POTASSIUM CHLORIDE ER 10 MEQ * Take 2 tablets by mouth twice* TRIAMTERENE 37.5 MG-HYDROCHLO* TAKE 1/2 TABLET BY MOUTH ONCE* VICTOZA 2-COCO 0.6 MG/0.1 ML (* INJECT 1.2 MILLIGRAM(S) BY PULLIAM* ROSUVASTATIN 20 MG TABLET Take 20 mg by mouth once della* LANSOPRAZOLE 30 MG CAPSULE,DE* Take 1 capsule by mouth once * AMLODIPINE 10 MG TABLET Take 1 tablet by mouth once d* PSYLLIUM ORAL POWDER Take by mouth. MULTIVITAMIN TABLET Take one(1) tablet daily. LOSARTAN 25 MG TABLET Take 0.5 tablets by mouth onc* Problem List As Of Date 03/13/2018 Noted Resolved Type II or unspecified type diabetes mellitus w* 07/27/2014 Rheumatoid arthritis (HCC) [M06.9] More... More... ASTHMA UNSPECIFIED [J45.909] More... More... Diffuse cystic mastopathy [N60.19] 08/04/2016 HYPERTENSION NOS [I10] 08/05/2015 ALLERGY, UNSPECIFIED [T78.40XA] HYPERLIPIDEMIA NEC/NOS [E78.5] INVALID FOR* Sprain and strain of unspecified site of should*INVALID FOR*08/04/2016 More... OBESITY [E66.9] INVALID FOR*02/06/2015 Multinodular goiter (nontoxic) [E04.2] INVALID FOR* More... Abdominal pain [R10.9] INVALID FOR*10/19/2013 GERD (Gastroesophageal Reflux Disease) [K21.9] INVALID FOR* Abdominal pain, unspecified site [R10.9] INVALID FOR*10/17/2013 BMI 45.0-49.9, adult [Z68.42] INVALID FOR* DM w/ coma type II, uncontrolled (HCC) [E11.69,*INVALID FOR*07/27/2014 Diabetes mellitus type 2, controlled, without c*INVALID FOR* More... Chronic rheumatic arthritis (HCC) [M06.9] INVALID FOR*08/04/2016 Depression [F32.9] INVALID FOR* Vitamin D deficiency [E55.9] INVALID FOR* Essential hypertension [I10] Hypothyroidism [E03.9] Other instructions from your clinician: BONE MINERAL DENSITY PATIENT INSTRUCTIONS Bone mineral density testing measures the amount of calcium in certain parts of your bones. This information determines how strong your bones are. The test is used to detect osteoporosis, a disease in which the bone's mineral content and density are low, increasing a person's risk of fractures. The lumbar spine (lower back) and the hip are the skeletal sites usually examined. For the test, remember that: 1. You cannot take this test if you are . 2. Eat a normal diet on the day of the test. 3. Take your medications as you normally would. 4. DO NOT take calcium supplements (such as Tums) for 24 hours before the test. 5. On the day of the test, leave valuables (jewelry or credit cards) at home. 6. The test should be performed prior to oral, rectal or IV contrast studies, or at least 7 days after any of these studies. For the test, you may be asked to wear a hospital gown. You will lie on your back, on a padded table, in a comfortable position. Generally, you can resume your usual activities immediately. Prescriptions ordered this encounter Disp Refills Start End LOSARTAN 25 MG TABLET 15 t* 5 03/13/2018 Route: ORAL Sig: Take 0.5 tablets by mouth once daily. Medications Discontinued During This Encounter levothyroxine (SYNTHROID) 50 mcg tab* 90 t* 3 02/01/2018 03/13/2018 Sig: TAKE 1 TABLET BY MOUTH ONCE DAILY. Patient not taking: Reported on 03/13/2018 Disc: Reason for discontinue is not on file. ergocalciferol, vitamin D2, 2,000 un* 03/13/2018 Class: Historical Med Route: ORAL Sig: Take 2,000 mg by mouth. Disc: Reason for discontinue is not on file. meloxicam (MOBIC) 7.5 mg tablet 30 t* 2 06/28/2017 03/13/2018 Route: ORAL Sig: Take 1 tablet by mouth once daily. Take with food. Patient not taking: Reported on 03/13/2018 Disc: Reason for discontinue is not on file. estradiol (CLIMARA) 0.1 mg/24 hr 4 Pa* 11 01/04/2017 03/13/2018 Route: TRANSDERMAL Sig: Apply 1 Patch as directed once each week. Disc: Reason for discontinue is not on file. clotrimazole (ANTIFUNGAL, CLOTRIMAZO* 30 g 1 09/13/2017 03/13/2018 Route: TOPICAL Sig: Apply 1 application to affected area twice daily. Disc: Reason for discontinue is not on file. escitalopram oxalate (LEXAPRO) 10 mg* 30 t* 11 08/04/2016 03/13/2018 Route: ORAL Sig: Take 1 tablet by mouth once daily. Patient not taking: Reported on 06/28/2017 Disc: Reason for discontinue is not on file. metFORMIN ER (GLUCOPHAGE XR) 500 mg * 30 t* 11 10/21/2016 03/13/2018 Cmt: Change to XR brand, d/c plain glucophage Route: ORAL Sig: Take 1 tablet by mouth daily with breakfast. Patient not taking: Reported on 06/28/2017 Disc: Reason for discontinue is not on file. Disposition: Return in about 2 weeks (around 03/27/2018). Follow-up and Disposition History Recorded Encounter Status:Closed by FRANCINE REID MD on 03/14/18 SURGERY VISIT REPORT Observed: 03/08/2018 Status: F Source: [facility] 5:09 PM [facility] REPOSITORY [facility] [address] [place] [address] [address] [place] [address] OFFICE VISIT Date of Service: 03/08/18 MR#: [id number] Acct: [id number] Name: MACY DOWNEY VERONICA Rep #: [id number] : 1950 Provider: Rusty Sawyer MD Age/Sex: 67/F Location: [facility] Status: Signed Intake Vital Signs03/08/18 Height 5 ft 1.5 in 03/08/18 Weight: 235 lb 03/08/18 Body Mass Index (BMI) 43.7 Intake Visit Reasons: Thyroid nodules/U/S 03/06 WC AND Hiatal Hernia Shank Pinner Required: No Is patient in pain?: No Allergies amoxicillin Allergy (Verified 03/08/18 13:27) Unknown duloxetine [From Cymbalta] Allergy (Verified 03/08/18 13:27) neuropathy losartan [Losartan] Allergy (Verified 03/08/18 13:27) Unknown ramipril Allergy (Verified 03/08/18 13:27) Unknown ranitidine HCl [From Zantac] Allergy (Verified 03/08/18 13:27) Unknown celecoxib [From Celebrex] Adverse Reaction (Verified 03/08/18 13:27) Upset Stomach cortisone Adverse Reaction (Verified 03/08/18 13:27) emotional issues glimepiride Adverse Reaction (Verified 03/08/18 13:27) Nausea/Vom/Diarrhea metformin HCl [From Glucophage] Adverse Reaction (Verified 03/08/18 13:27) Nausea/Vom/Diarrhea methotrexate Adverse Reaction (Verified 03/08/18 13:27) Unknown Penicillins Adverse Reaction (Verified 03/08/18 13:27) Nausea/Vom/Diarrhea Medications Estradiol [Vivelle-Dot] 1 ea TD QWEEK 09/29/15 [History Confirmed 03/08/18] Fluticasone 0.05% [Flonase Nasal Reagan] 1 spray NASAL DAILY PRN 09/29/15 [History Confirmed 03/08/18] Lansoprazole [Prevacid] 30 mg PO DAILY PRN 09/29/15 [History Confirmed 03/08/18] Levothyroxine Sodium [Levoxyl] 50 mcg PO DAILY 09/29/15 [History Confirmed 03/08/18] Loratadine [Claritin] 10 mg PO PRN PRN 09/29/15 [History Confirmed 03/08/18] Multivitamins,Therapeutic [Multivitamin] 1 tab PO DAILY 09/29/15 [History Confirmed 03/08/18] Potassium Chloride [Klor-Con 10] 20 meq PO BID 09/29/15 [History Confirmed 03/08/18] Psyllium Seed (with Sugar) [Metamucil Powder] 575 gm PO DAILY PRN 09/29/15 [History Confirmed 03/08/18] Triamterene/Hydrochlorothiazid [Triamterene-Hctz 37.5-25 mg Tb] 0.5 tab PO QHS 09/29/15 [History Confirmed 03/08/18] Cholecalciferol (Vitamin D3) [Vitamin D3] 2,000 unit PO DAILY 08/24/17 [History Confirmed 03/08/18] Liraglutide [Victoza] 1.25 mg SQ 1300 08/24/17 [History Confirmed 03/08/18] Rosuvastatin Calcium [Crestor] 20 mg PO QHS 08/24/17 [History Confirmed 03/08/18] Senna/Docusate Sodium [Senokot-S] 2 tab PO BID #20 tab 09/08/17 [Rx Confirmed 03/08/18] amlodipine 10 mg tablet 10 mg PO DAILY #90 tab 02/27/18 [Rx Confirmed 03/08/18] cimetidine 200 mg tablet 200 mg PO ONCE 03/08/18 [History Confirmed 03/08/18] PFSH Medical History Chest pain, unspecified (Chronic) HTN (hypertension) (Chronic) Left carotid artery stenosis (Chronic) HLD (hyperlipidemia) (Chronic) Diabetes mellitus (Chronic) Fatigue (Chronic) Visual disturbance (Chronic) Pulmonary hypertension (Chronic) Family History Father CAD (coronary artery disease) Ischemic cardiomyopathy Mother Atrial fibrillation CHF (congestive heart failure) Pulmonary fibrosis Sister Myocardial infarction Diabetes Gilliam disease COPD (chronic obstructive pulmonary disease) Hypertension Brother Cancer Pancreatic CA Diabetes Atrial fibrillation Social History Smoking Status: Never smoker alcohol intake: current alcohol intake frequency: holidays/special occasions only Alcohol type: wine substance use type: does not use caffeine: Yes Type: coffee what type of physical activity do you participate in: other details: physical therapy frequency: 1-2 times per week duration: 45-60 minutes/day seatbelt use: always do you feel safe at home: Yes HPI HPI HPI: MACY DOWNEY, is a 67 F who presents to the office today for surgical consultation regarding dramatic escalation of gastroesophageal reflux disease symptoms and emesis. The patient also has had a previous history of thyroid nodules. It is of additional note that the patient has not had a colonoscopy by her report for an extended period of time. I have been asked to see her by Dr. Francine Weller for surgical consultation regarding her reflux disease and multiple thyroid nodules and a written copy of my surgical consult recommendations will be returned to him On today's visit the patient states that she has had a knee replacement August 2017. She has had leg pain joint pain arm pain. She has had a long-term history of rheumatoid arthritis. In her younger years she was on significant prednisone therapy. She gained a significant amount of weight. She eventually was weaned off of the steroids. More recently however not only where she replaced on prednisone but also had Mobic added to treat her joint pain. It is at this time that her upper GI symptoms became very severe. I have records dated October 19, [address] Guille Anaya performed an upper endoscopy. A small hiatal hernia was noted. Moderate erythema of the gastric antrum. The gastric biopsy showed mild mild chronic inactive gastritis. H. pylori was negative. Esophageal biopsies were not obtained. Dating back to August 12, 2009 a bilateral thyroid final aspiration was performed and was consistent with benign follicular nodule. March 06, 2018 thyroid ultrasound was performed. She has a dominant solid nodule in the upper pole of the right measuring 1.7 x 1.2 x 1.2 cm. 2 smaller nodules less than a centimeter. The left lobe has 3 subcentimeter nodules. The dominant nodule in the right was felt to be of interest. Patient's body weight is 235 pounds with a BMI of 43.7 The patient states that she does not lie down for bed within 4 hours of eating supper. She raises her head with pillows. She takes [id number] Prevacid because her insurance company will not cover prescription medications for this. Recently she has been taking the Prevacid twice daily. There is been some improvement. ROS General General: Yes fatigue; no weight change, appetite, colon cancer, breast cancer or weakness HEENT HEENT: Yes swollen glands; no difficulty swallowing, eye injury, eye surgery or hoarseness Endo Endocrine: Yes thyroid disease and diabetes mellitus; no thyroid cancer, Hair loss, heat intolerance or cold intolerance Skin Skin: No rash or changing moles Breast Breast: No left breast lump, right breast lump, nipple discharge, breast pain, abnormal mammogram, abnormal US or breast enlargement Musc Musculoskeletal: Yes arthritis and rheumatoid arthritis; no back problems, gout or joint pain Cardio Cardiovascular: Yes murmur, heart disease and high blood pressure; no pacemaker, atrial fibrillation, heart attack, heart stent, palpitations, shortness of breat with exertion or chest pain Psych Psychiatric: No depression, anxiety or hearing voices Resp Respiratory: Yes asthma, No shortness of breath, No sleep apnea, No cough, No COPD, No emphysema, No wheezing Gastro Gastrointestinal: Yes abdominal pain, Yes nausea or vomiting, Yes acid reflux Ed Hematologic: No blood thinners, No blood disorders, No bleeding, No anemia, No blood clots Neuro Neurologic: No system reviewed and no additional complaints, except as docu, No as per HPI, No abnormal walking, No abnormal hearing, No abnormal movements, No abnormal speech, No behavioral changes, No burning sensations, No confusion, No seizure-like activity, No unsteadiness, No dizziness, No localized weakness, No frequent falls, No headache(s), No lack of coordination, No loss of vision, No memory loss, No numbness, No other visual disturbances, No radiating pain, No restless legs, No sensory deficit, No fainting, No tingling, No tremor(s), No weakness, No other Exam Const General: cooperative, healthy appearing, comfortable Nutritional Appearance: obese Orientation: alert, awake, oriented x3 HENMT Head: normal to inspection Eyes General: appearance normal, both eyes and all related structures Neck Thyroid: other (Thyroid nontender, nodule palpable on right) Carotids: normal carotid upstroke, no bruits Lymphatic: no lymphadenopathy noted Chest Chest palpation AND inspection: normal inspection of the chest Breast Palpation: No nipple discharge Resp Effort AND Inspection: normal respiratory effort Auscultation: clear to auscultation bilaterally Cardio Rate: regular rate Rhythm: regular rhythm Heart Sounds: murmur GI Inspection: normal to inspection Palpation: soft, no hepatosplenomegaly Other: Notably overweight, I am not able to detect any internal organs Skin General: no rashes or lesions noted Neuro Cranial Nerves: CN's II-XI intact bilaterally Extrem General: no calf tenderness Psych Affect: anxious affect Assessment AND Plan 1. Gastroesophageal reflux disease, esophagitis presence not specified K21.9 2. Class 3 severe obesity due to excess calories with serious comorbidity and body mass index (BMI) of 40.0 to 44.9 in adult E66.01; Z68.41 3. Screening for intestinal cancer Z12.10 4. Multiple thyroid nodules E04.2 Plan I believe that this patient's severe escalation of her gastroesophageal reflux disease is secondary to her prednisone prescription complicated by recurrent weight gain. Unfortunately I will not have a surgical treatment option for her. I suppose she might benefit from a future referral for bariatric combined with reflux procedures but as long as she is maintained on prednisone it is unlikely that anyone would want to pursue that. I believe at this circumstance however she requires a esophagogastroduodenoscopy with anticipated biopsies. She is aware of the technique, benefits, risks, alternatives. I have asked her to pursue with her primary care and orthopedist Dr. Abdi minimizing and limiting reflux and gastric irritant medications. Regarding her thyroid nodule I recommend an ultrasound-guided final aspiration right thyroid. She is aware of the technique, benefits, risks and alternatives. It is been an extended period of time since that has been sampled. The patient is in need of screening colonoscopy with possible biopsy or polypectomy. She has had an opportunity to ask and have questions answered. I am recommending that we combine this with her upper endoscopy. The patient is demonstrating a higher anxiety profile today and I believe that the upper and lower endoscopy performed with monitored anesthesia care would be most efficacious for her. I have strongly recommended to her that she work with her primary care physician and prescribing physicians to continue to work toward a weight loss program which I believe would clearly improve her reflux symptoms. I very much appreciate the kind opportunity of continue to assist with her surgical care. Cc: Dr. Francine Sawyer M.D., F.A.C.S. Plan Detail Other Medications Discontinued: Coding Level of Care Code Comprehensive,moderate Diagnoses Gastroesophageal reflux disease, esophagitis presence not specified K21.9 Esophagitis presence: esophagitis presence not specified Class 3 severe obesity due to excess calories with serious comorbidity and body mass index (BMI) of 40.0 to 44.9 in adult E66.01; Z68.41 Obesity classification: adult class 3 (BMI >= 40) Body mass index: BMI 40.0-44.9 Obesity type: due to excess calories Serious obesity comorbidity presence: with serious comorbidity Screening for intestinal cancer Z12.10 Multiple thyroid nodules E04.2 03/08/18 1709 <Electronically signed by Rusty Sawyer MD> Date Rusty Sawyer MD Cosigner Signature: Date (if applicable) CC: Evert Reid MD ALBUMIN/CREAT RATIO Collected: 03/08/2018 Status: F Source: [place] 11:19 [facility] RE[facility] TYPE CODE TESTS RESULT OUT OF REFERENCE UNITS RANGE LAB UCRR 20-300 mg/dL 82.7 Creatinine,Ur ine,Ran LAB UALBR 0.0-23.0 mg/L <12.0 Albumin Urine Random LAB UALBCR 0-30 mg/g Not Albumin/Creat calculated Ratio Performed By: #### UACR #### [facility] [address], [place] [address] POTASSIUM Collected: 03/08/2018 Status: F Source: [place] 11:[address] [facility] REPOSITORY TYPE CODE TESTS RESULT OUT OF REFERENCE UNITS RANGE LAB K 3.7-5.1 mmol/L Potassium 4.1 Performed By: #### K1, MG1 #### [address] [address] MAGNESIUM Collected: 03/08/2018 Status: F Source: [place] 11:[address] [facility] REPOSITORY TYPE CODE TESTS RESULT OUT OF REFERENCE UNITS RANGE LAB MG 1.7-2.3 mg/dL Magnesium 2.0 Performed By: #### K1, MG1 #### [address] [address] HEMOGLOBIN A1C Collected: 03/08/2018 Status: F Source: [place] 11:01 [facility] REPOSITORY TYPE CODE TESTS RESULT OUT OF REFERENCE UNITS RANGE LAB HGBA1C 4.3-5.6 % High Hemoglobin A1c 6.1 LAB HBA0 mg/dL Est. Average Glucose 128 Result Comment: eAG: (Estimated average glucose) is a calculated value from HgbA1c and is patient account representative of the average blood glucose level in the last 2-3 month period. Performed By: #### HBA1C #### [address] [address] THYROID Observed: 03/06/2018 Status: F Source: [place] 11:03 AM [facility] REPOSITORY [facility] Imaging Services [address] [place] [address] Thyroid MR#: [id number] Acct: [id number] Name: MACY DOWNEY VERONICA Rep #: [id number] : 1950 F 67 From: Delano Alegria MD PCP: Evert Reid MD Status: REG CLI Study: Thyroid Date of Exam: 03/06/18 Exam# [id number] Ordering Dr: Rusty Sawyer MD STUDY: THYROID ULTRASOUND REASON FOR EXAM: Female, 67 years old. History of thyroid nodules. TECHNIQUE: Ultrasound evaluation of the thyroid was performed with real-time and static quintero-scale imaging. COMPARISON: None. FINDINGS: RIGHT LOBE: The right lobe of the thyroid gland measures 4.7 cm x 1.8 cm 6 cm. There is a homogeneous echotexture. A dominant solid nodule is seen in the upper pole of the right lobe. This measures 1.7 cm x 1.2 cm x 1.2 cm. There is also evidence of a 2 smaller hypoechoic nodules measuring 6 mm x 6 mm x 5 mm in the midportion of the right lobe. LEFT LOBE: The left lobe of the thyroid gland measures 4.4 cm x 1.5 cm x 1.1 cm. There is a homogeneous echotexture. There are 3 subcentimeter hypoechoic solid nodules. The largest is in the upper pole and measures 6 mm x 6 mm x 4 mm. Focal calcification is seen within it. ISTHMUS: The isthmus measures 2.0 mm. There is a 5 mm x 6 mm x 4 mm hypoechoic solid nodule along the right side of the isthmus. The regional lymph nodes are normal. US/Thyroid IMPRESSION: Bilateral thyroid nodules as described. The largest is a solid nodule measuring 1.7 cm x 1.2 cm x 1.2 cm. This lies in the upper pole of the right lobe. Electronically Signed: Delano Alegria MD at 12:54 EDT Tel [phone], Service support , CC: Evert Reid MD; Rusty Sawyer MD Digital Media Intern: Signed [facility] Observed: 02/28/2018 Status: COMPLETED Source: [place] 12:[address] [facility] REPOSITORY Patient Outreach (FAMPST) MACY DOWNEY ([id number]) 1950 F Date Time Provider Department 02/28/18 FRANCINE REID) FAMPST During your visit today, we recorded the following information about you: Allergies As of Date: 02/28/2018 Noted Allergy Reaction AMOXICILLIN 02/21/2009 6 - Diarrhea GLUCOPHAGE XR (METFORMIN HCL) 03/29/2007 6 - Diarrhea 8 - GI Upset Comments: Bloating CYMBALTA (DULOXETINE) 06/28/2017 14 - Other: See Comments Comments: Neuropathy , electrical shocks GLIPIZIDE 06/28/2017 16 - Unknown NEXIUM (ESOMEPRAZOLE MAGNESIUM) 08/04/2016 14 - Other: See Comments Comments: Ineffective OMEPRAZOLE 08/04/2016 14 - Other: See Comments Comments: Ineffective PROTONIX (PANTOPRAZOLE SODIUM) 08/04/2016 14 - Other: See Comments Comments: Ineffective ALTACE (RAMIPRIL) 08/04/2005 14 - Other: See Comments Comments: Blurred vision ZANTAC (RANITIDINE HCL) 08/04/2005 2 - Rash 9 - Itching Date Reviewed: 08/17/2017 Reviewed by: Wilfred Fontana Ma - Fully Assessed Visit Diagnosis:Medication management [Z79.899] Order(s):ALBUMIN/CREAT RATIO RND UR [SQUACR] Order #: [id number] FUTURE HGB A1C [GOJWD5X] Order #: [id number] FUTURE Prescriptions as of 02/28/2018 Sig: FLUTICASONE 50 MCG/ACTUATION * Use 2 Sprays in each nostril * X LEVOTHYROXINE 50 MCG TABLET Take 1 tablet by mouth once d* PEN NEEDLE, DIABETIC 30 GAUGE* 1 Device once daily. X LEVOTHYROXINE 50 MCG TABLET TAKE 1 TABLET BY MOUTH ONCE D* Patient not taking: Reported on 03/13/2018 X POTASSIUM CHLORIDE ER 10 MEQ * Take 2 tablets by mouth twice* X TRIAMTERENE 37.5 MG-HYDROCHLO* TAKE 1/2 TABLET BY MOUTH ONCE* X CLOTRIMAZOLE 1 % TOPICAL CREAM Apply 1 application to affect* VICTOZA 2-COCO 0.6 MG/0.1 ML (* INJECT 1.2 MILLIGRAM(S) BY PULLIAM* X ERGOCALCIFEROL (VITAMIN D2) 2* Take 2,000 mg by mouth. ROSUVASTATIN 20 MG TABLET Take 20 mg by mouth once della* X MELOXICAM 7.5 MG TABLET Take 1 tablet by mouth once d* Patient not taking: Reported on 03/13/2018 X ESTRADIOL 0.1 MG/24 HR WEEKLY* Apply 1 Patch as directed onc* X METFORMIN ER 500 MG TABLET,EX* Take 1 tablet by mouth daily * Patient not taking: Reported on 06/28/2017 LANSOPRAZOLE 30 MG CAPSULE,DE* Take 1 capsule by mouth once * X ESCITALOPRAM 10 MG TABLET Take 1 tablet by mouth once d* Patient not taking: Reported on 06/28/2017 AMLODIPINE 10 MG TABLET Take 1 tablet by mouth once d* PSYLLIUM ORAL POWDER Take by mouth. MULTIVITAMIN TABLET Take one(1) tablet daily. Problem List As Of Date 02/28/2018 Noted Resolved Type II or unspecified type diabetes mellitus w* 07/27/2014 Rheumatoid arthritis (HCC) [M06.9] More... More... ASTHMA UNSPECIFIED [J45.909] More... More... Diffuse cystic mastopathy [N60.19] 08/04/2016 HYPERTENSION NOS [I10] 08/05/2015 ALLERGY, UNSPECIFIED [T78.40XA] HYPERLIPIDEMIA NEC/NOS [E78.5] INVALID FOR* Sprain and strain of unspecified site of should*INVALID FOR*08/04/2016 More... OBESITY [E66.9] INVALID FOR*02/06/2015 Multinodular goiter (nontoxic) [E04.2] INVALID FOR* More... Abdominal pain [R10.9] INVALID FOR*10/19/2013 GERD (Gastroesophageal Reflux Disease) [K21.9] INVALID FOR* Abdominal pain, unspecified site [R10.9] INVALID FOR*10/17/2013 BMI 45.0-49.9, adult [Z68.42] INVALID FOR* DM w/ coma type II, uncontrolled (HCC) [E11.69,*INVALID FOR*07/27/2014 Diabetes mellitus type 2, controlled, without c*INVALID FOR* More... Chronic rheumatic arthritis (HCC) [M06.9] INVALID FOR*08/04/2016 Depression [F32.9] INVALID FOR* Vitamin D deficiency [E55.9] INVALID FOR* Essential hypertension [I10] Hypothyroidism [E03.9] Encounter Status:Closed by [employer], PRODUSER on 08/11/18 12 LEAD EKG PERFORMED Observed: 10/14/2017 Status: F Source: [facility] 3:31 PM [facility] REPOSITORY [address] [place] [address] 12 Lead EKG performed by [facility] 10/14/171 MR#: [id number] Acct: [id number] Name: MACY DOWNEY VERONICA Rep #: [id number] : 1950 67 From: Hernesto Brar MD Attending Dr: Hernesto Brar MD Status: REG AMB Ordering Dr: Hernesto Brar MD Date: 10/14/17 [place] [facility] [place] C Ad[place] [facility]12 Lead EKG performed by [facility] ECG Report Interpretation Sinus Rhythm Leftward axisPoor R wave progressionElectronically signed on 10/14/2017 at 15:40 by Hernesto Brar 10/14/17 1542 Date Hernesto Brar MD CC: Evert Reid MD Date Dictated: 10/14/171530 Date Transcribed: 10/14/171530 Digital Media Intern: PM Signed ALLERGIES ALLERGIES DATE TYPE / NAME / CODE REACTION SEVERITY SOURCE CODE 06/28/2018 Drug ranitidine Unknown Unknown [place] Allergy/41 HCl/[id number](RXN [facility] [id number]([facility]) Repository 06/28/2018 Drug metformin Nausea/Vom/Diarr Unknown [place] Allergy/41 HCl/[id number](RXN [facility] 9667851([facility]) Repository 06/28/2018 Drug Penicillins/K97912 Nausea/Vom/Diarr Unknown [place] Allergy/41 0476(RXNORM) [facility] 0546729([facility]) Repository 06/28/2018 Drug methotrexate/F0060 Unknown Unknown [place] Allergy/41 78111(RXNORM) Community 1359701([facility]) Repository 06/28/2018 Drug ramipril/U59231830 Unknown Unknown [place] Allergy/41 5(RXNORM) Community 8409446([facility]) Repository 06/28/2018 Drug amoxicillin/A18189 Unknown Unknown [place] Allergy/41 3675(RXNORM) Community 5930352([facility]) Repository 06/28/2018 Drug cortisone/H2543275 emotional issues Unknown [place] Allergy/41 45(RXNORM) Community 6129745([facility]) Repository 06/28/2018 Drug losartan/R26408650 Unknown Unknown [place] Allergy/41 1(RXNORM) Community 6783404([facility]) Repository 06/28/2018 Drug glimepiride/N28718 Nausea/Vom/Diarr Unknown [place] Allergy/41 5624(RXNORM) [facility] Community 8775853([facility]) Repository 06/28/2018 Drug celecoxib/J9987531 Upset Stomach Unknown [place] Allergy/41 31(RXNORM) Community 9797343([facility]) Repository 06/28/2018 Drug duloxetine/L793420 neuropathy Unknown [place] Allergy/41 705(RXNORM) Community 1773277([facility]) Repository 06/28/2017 DRUG DULOXETINE OTHER: SEE C [place] [address] [address] [place] 6083216( Repository OMED CT) 06/28/2017 DRUG GLIPIZIDE UNKNOWN [place] [address] [place] 5938176( Repository OMED CT) 08/04/2016 DRUG ESOMEPRAZOLE OTHER: SEE C [place] [address] MAGNESIUM [address] [place] 7870078(SN Repository OMED CT) 08/04/2016 DRUG OMEPRAZOLE OTHER: SEE C [facility] [address] [place] 0576129(SN Repository OMED CT) 08/04/2016 DRUG PANTOPRAZOLE OTHER: SEE C [facility] SODIUM [address] [place] 3810686(SN Repository OMED CT) 02/21/2009 DRUG AMOXICILLIN DIARRHEA High [place] [address] [address] [place] 7044116(SN Repository OMED CT) 03/29/2007 DRUG METFORMIN HCL DIARRHEA Med [place] [address] [address] [place] 0506677(SN Repository OMED CT) 08/04/2005 DRUG RAMIPRIL OTHER: SEE C [place] [address] [address] [place] 4673126(SN Repository OMED CT) 08/04/2005 DRUG RANITIDINE HCL RASH [place] [address] 3538577(SN Repository OMED CT) ENCOUNTERS ENCOUNTERS ADMIT/DISCHARGE ACCOUNT ADMITTING ENCOUNTER LOCATION SOURCE NUMBER [facility] 10/05/2018 [id number] Ambulatory [facility] ing:US Repository 09/27/2018 [id number] [facility] ing:MRI Repository 09/18/2018/09/18/20 [id number] Ambulatory [address] Repository 09/18/2018/09/19/20 [id number] Ambulatory [address] Repository 07/05/2018/07/05/20 [id number] Ambulatory [address] Repository 07/05/2018/07/05/20 [id number] Ambulatory [address] [place] Repository 07/04/2018/07/08/20 [id number] Ambulatory [address] Repository 06/28/2018/06/28/20 [id number] Ambulatory BMSBuilding:B [place] 18 [place].[facility] Repository 06/28/2018/06/28/20 [id number] Ambulatory [address] Repository 06/28/2018/06/28/20 [id number] Ambulatory [address] Repository 06/23/2018/06/26/20 [id number] Ambulatory [address] [place] Repository 06/23/2018/06/26/20 [id number] Ambulatory [address] Repository 04/17/2018 [id number] Ambulatory [facility] Hospital ing:MTLAB Repository 04/14/2018/04/14/20 [id number] Ambulatory [address] Repository 03/31/2018/04/03/20 [id number] Ambulatory [address] Repository 03/29/2018/03/29/20 [id number] Ambulatory BMSBuilding:B [place] 18 [place].[facility] Repository 03/29/2018 [id number] Ambulatory [facility] Hospital ing:LABSPEC Repository 03/28/2018/03/28/20 [id number] Ambulatory [address] Hospital ing:EN Repository 03/28/2018 [id number] Ambulatory BMSBuilding:B [place].CF.[facility] Repository 03/22/2018/03/24/20 [id number] Ambulatory [address] Repository 03/22/2018/03/22/20 [id number] Ambulatory [address] Repository 03/20/2018/03/20/20 [id number] Ambulatory [address] Repository 03/13/2018/03/15/20 [id number] Ambulatory [address] Repository 03/08/2018/03/08/20 [id number] Ambulatory BMSBuilding:B [place] 18 [place].[facility] Repository 03/08/2018 [id number] Ambulatory [facility] Repository 03/06/2018 [id number] Ambulatory [facility] Hospital ing:OPUS Repository 10/14/2017/10/14/20 [id number] Ambulatory BMSBuilding:B [place] 17 [place].[facility] Repository PAYERS PAYERS ENCOUNTER GUARANTOR PAYER SUBSCRIBER SOURCE 10/05/2018 MACY A Primary MACY A [place] [id number] Insurance:MEDICARE SNYDERDOB: [facility] [id number] Number: Repository [address]Xtq: [phone] [id number] [phone] () Date:2018-09-20 10/05/2018 Secondary MACY A [place] Insurance:MEDICAL SNYDERDOB: [facility] [id number] Hospital Number: Repository [id number] Date:9133-71-44[address] [address]AP: 10/05/2018 Tertiary NOT GIVENUNK [place] Insurance:SELF PAY [facility] Hospital Number: Effective Repository Date:2018-09-20 09/27/2018 MACY A Primary MACY A [place] [id number] Insurance:MEDICARE SNYDERDOB: [facility] [place] PART A [facility] [id number], [place] Number: Repository [id number]: [phone] [id number] [phone] () Date:2018-09-25 09/27/2018 Secondary MACY A [place] Insurance:MEDICAL SNYDERDOB: [facility] [id number] Hospital Number: Repository [id number] Date:9029-06-11FS[address] [address]DE: 09/27/2018 Tertiary NOT GIVENUNK [place] Insurance:SELF PAY [facility] Hospital Number: Effective Repository Date:2018-09-25 06/28/2018 MACY A Primary MACY A [place] [id number] Insurance:MEDICARE SNYDERDOB: Community [place] PART A [facility] [id number] Number: Repository [id number]: [phone] [id number] [phone] (HP) Date:2017-10-14 06/28/2018 Secondary MACY A [place] Insurance:MEDICAL SNYDERDOB: [facility] [id number] Hospital Number: Repository [id number] Date:5856-89-14VF[address] [address]NR: 06/28/2018 Tertiary NOT GIVENUNK [place] Insurance:SELF PAY [facility] Hospital Number: Effective Repository Date:2018-06-28 04/17/2018 MACY A Primary MACY A Win [id number] Insurance:MEDICARE SNYDERDOB: Community [place] PART A [facility] [id number] Number: Repository [address]Mzh: 330 [id number] [phone] (HP) Date:2018-04-17 04/17/2018 Secondary MACY A [place] Insurance:MEDICAL SNYDERDOB: [facility] [id number] Hospital Number: Repository [id number] Date:5130-94-37PK[address] [address]XA: 04/17/2018 Tertiary NOT GIVENUNK [place] Insurance:SELF PAY [facility] Hospital Number: Effective Repository Date:2018-04-17 03/29/2018 MACY VERONICA Primary MACY VERONICA [place] [id number] Insurance:MEDICARE SNYDERDOB: Community [place] A [facility] [id number] Number: Repository [address]Tjl: 330 [id number] [phone] () Date:2018-03-08 03/29/2018 Secondary MACY VERONICA [place] Insurance:MEDICAL SNYDERDOB: [facility] [id number] Hospital Number: Repository [id number] Date:3770-51-16GE[address] [address]FM: 03/29/2018 Tertiary NOT GIVENUNK [place] Insurance:SELF PAY [facility] Hospital Number: Effective Repository Date:2018-03-29 03/29/2018 MACY A Primary MACY A Win [id number] Insurance:MEDICARE SNYDERDOB: Community [place] [facility] A [facility] [id number] Number: Repository [id number]: 330 [id number] [phone] (HP) Date:2018-03-29 03/29/2018 Secondary MACY A [place] Insurance:MEDICAL SNYDERDOB: [facility] [id number] Hospital Number: Repository [id number] Date:7518-96-76CG[address] [address]WA: 03/29/2018 Tertiary NOT GIVENUNK [place] Insurance:SELF PAY [facility] Hospital Number: Effective Repository Date:2018-03-29 03/28/2018 MACY MARTIN Primary MACY [place] [id number] Insurance:MEDICARE SNYDERDOB: Community [place] PART A [facility] [id number], [place] Number: Repository [address]Thc: 330 [id number] [phone] (HP) Date:2018-03-08 03/28/2018 Secondary MACY [place] Insurance:MEDICAL SNYDERDOB: [facility] [id number] Hospital Number: Repository [id number] Date:0618-63-14QK[address] [address]WM: 03/28/2018 Tertiary NOT GIVENUNK [place] Insurance:SELF PAY [facility] Hospital Number: Effective Repository Date:2018-03-08 03/28/2018 MACY VERONICA Primary MACY [place] [id number] Insurance:MEDICARE SNYDERDOB: Community [place] PART A [facility] [id number] Number: Repository [address]Bzl: 330 [id number] [phone] (HP) Date:2018-03-08 03/28/2018 Secondary MACY [place] Insurance:MEDICAL SNYDERDOB: [facility] [id number] Hospital Number: Repository [id number] Date:5701-56-36TE [address] [address]DH: 03/28/2018 Tertiary NOT GIVENUNK [place] Insurance:SELF PAY [facility] Hospital Number: Effective Repository Date:2018-03-28 03/08/2018 MACY VERONICA Primary MACYSILVINO [place] [id number] Insurance:MEDICARE SNYDERDOB: Community [place] PART A [facility] [id number] Number: Repository [address]Vcd: 330 [id number] [phone] (HP) Date:2018-02-28 03/08/2018 Secondary MACY VERONICA [place] Insurance:MEDICAL SNYDERDOB: [facility] [id number] Hospital Number: Repository [id number] Date:7297-57-62DF [address] [address]CG: 03/08/2018 Tertiary NOT GIVENUNK [place] Insurance:SELF PAY [facility] Hospital Number: Effective Repository Date:2018-02-28 03/06/2018 MACY VERONICA Primary MACY VERONICA [place] [id number] Insurance:MEDICARE SNYDERDOB: Community [place] PART A [facility] [id number] Number: Repository [address]Cwe: 330 [id number] [phone] () Date:2018-02-27 03/06/2018 Secondary MACY VERONICA [place] Insurance:MEDICAL SNYDERDOB: [facility] [id number] Hospital Number: Repository [id number] Date:8223-31-11UI [address] [place] [address]AC: 03/06/2018 Tertiary NOT GIVENUNK [place] Insurance:SELF PAY [facility] Number: Effective Repository Date:2018-02-27 10/14/2017 MACY VERONICA Primary MACY VERONICA [place] [id number] Insurance:MEDICARE SNYDERDOB: Community [place] [facility] A [facility] [id number] Number: Repository [address]Qmv: 330 [id number] [phone] () Date:2017-10-10 10/14/2017 Secondary MACY VERONICA [place] Insurance:MEDICAL SNYDERDOB: [facility] [id number] Hospital Number: Repository [id number] Date:3372-34-73GC [address] [address]OG: 10/14/2017 Tertiary NOT GIVENUNK [place] Insurance:SELF PAY [facility] Hospital Number: Effective Repository Date:2017-10-10
== END ==
PROVIDERS: Family Provider Family Medicine; PCP Family Medicine; Referring Provider Specialist; Visit Provider Specialist
DX: M17.12 Unilateral primary osteoarthritis, left knee (principal); M25.562 Pain in left knee
CPT/HCPCS: 73721

== ENCOUNTER → 2018-10-05 13:03 | Outpatient (CLI) | payer MEDICARE, OTHER, SELFPAY ==
[2018-06-28 14:39] VITALS: BMI 45.1
--- NOTE | 2018-10-05 13:07 | US_ITS ---
STUDY: SUPERFICIAL ULTRASOUND - LEFT THIGH REASON FOR EXAM: Female, 68 years old. Lipoma TECHNIQUE: A superficial ultrasound was performed with real-time and static quintero-scale imaging. COMPARISON: None. FINDINGS: Multiple ultrasound images of the soft tissues about the left hip were obtained. In the region of interest, structure isoechoic and slightly hyperechoic to adjacent skeletal muscle is suspected that measures 7.1 x 6.7 x 3.1 cm. This is not as hyperechoic as is typically seen with a large lipoma. Although lipoma is certainly the main consideration given the ultrasound appearance, consider additional imaging with MRI if possible. US/Ext Non Vasc Limited/Soft Tiss IMPRESSION: Indeterminate structure in the region of clinical interest, less hyperechoic than is typically seen with lipoma. For this reason, MRI correlation is recommended if possible. Electronically Signed: Kj Garcia MD at 9:31 EST Tel , Service support ,
== END ==
PROVIDERS: Family Provider Family Medicine; PCP Family Medicine; Referring Provider Family Medicine; Visit Provider Family Medicine
DX: D17.24 Benign lipomatous neoplasm of skin and subcutaneous tissue of left leg (principal)
CPT/HCPCS: 76882

== ENCOUNTER → 2018-10-26 09:31 | Outpatient (CLI) | payer MEDICARE, OTHER, SELFPAY ==
--- NOTE | 2018-10-26 09:41 | MRI_ITS ---
STUDY: MRI LEFT HIP WITH AND WITHOUT CONTRAST REASON FOR EXAM: Left thigh/hip mass at skin markers. TECHNIQUE: Standardized fat and water weighted pulse sequences were obtained in all 3 orthogonal planes after intravenous administration of 10 mL of Gadavist. COMPARISON: None. FINDINGS: Normal hip joint without articular joint space narrowing. Normal acetabulum. Normal labrum. Normal femoral head. Normal femoral neck and intratrochanteric region. Normal gluteus minimus, medius and iliopsoas tendons and distal insertions. There is no trochanteric, iliopsoas or iliopectineal bursitis. Normal superior and inferior pubic rami. Normal pubic symphysis. Normal ischial tuberosity. Normal origin of the hamstring tendons. Normal visualized iliac wing, sacroiliac joint, and sacral ala. There is prominence of the subcutaneous fat at the lateral aspect of the left hemipelvis corresponding to the skin markers (T1 axial series 7 images 6-21) consistent with a superficial nonencapsulated lipoma. There is no abnormal contrast enhancement. MRI/Lower Ext No Joint W/WO Cont IMPRESSION: Superficial nonencapsulated lipoma corresponding to the skin markers. Electronically Signed: Cole Brown MD at 12:00 EST Tel , Service support ,
[2018-10-26 10:05] LABS: CREATININE FINGERSTICK 0.8 mg/dL (0.55-1.02); EGFR FINGERSTICK > 60.0000 mL/min (>60)
== END ==
PROVIDERS: Family Provider Family Medicine; PCP Family Medicine; Referring Provider Family Medicine; Visit Provider Family Medicine
DX: R22.42 Localized swelling, mass and lump, left lower limb (principal); Z13.89 Encounter for screening for other disorder
CPT/HCPCS: 73720; A9585

== ENCOUNTER → 2019-04-18 | Outpatient (CLI) | payer MEDICARE, OTHER, SELFPAY ==
[2019-03-29 11:46] VITALS: BMI 45.5
--- NOTE | 2019-04-18 06:47 | ECHOCS_ITS ---
Reason For Study: chest pain Procedure This was a 2D Doppler, Color Flow transthoracic echocardiogram. The study was technically difficult. Due to body habitus. Contrast injection was performed. Exam performed in department. Left Ventricle Normal LV size. Left ventricular systolic function is normal. The estimated ejection fraction is 65 %. Diastolic function is indeterminate. No regional wall motion abnormalities noted. Right Ventricle Normal RV size. Normal systolic function. Atria The left atrium is mildly enlarged. Normal right atrium. No doppler evidence for ASD. Mitral Valve There is moderate mitral annular calcification. Extension of the mitral annular calcification onto the posterior mitral valve leaflet. Trivial mitral valve insufficiency. Tricuspid Valve Normal tricuspid valve. Trivial tricuspid valve insufficiency. Right ventricular systolic pressure estimated to be 32 mmHg. Aortic Valve The aortic valve is not well visualized. Pulmonic Valve The pulmonic valve is not well visualized. Great Vessels Normal sized aortic root. Pericardium/Pleural No pericardial effusion. Medication Diluted definity 3.0ml given slow IV push to enhance endocardial definition. MMode/2D Measurements & Calculations LVIDd: 4.1 cm IVSd: 1.1 cm Ao root diam: 2.7 cm LVIDs: 3.1 cm LVPWd: 1.1 cm RVDd: 3.6 cm FS: 26.1 % LAV(MOD-bp): 56.5 ml LA A4 area: 23.1 cm2 LA dimension(2D): 3.7 cm LAV(MOD-bp) Indexed: 26.9 ml/m2 LAV(MOD-sp2): 43.3 ml LAV(MOD-sp4): 71.8 ml RA A4 area: 14.7 cm2 Time Measurements MV dec time: 0.20 sec Doppler Measurements & Calculations MV E max minor: 121.5 cm/sec Lat Peak E' Minor: 9.0 cm/sec Med Peak E' Minor: 7.7 cm/sec MV A max minor: 131.5 cm/sec E/E' lat: 13.4 E/E' med: 15.9 MV E/A: 0.92 Ao V2 max: 182.6 cm/sec LV V1 max: 110.5 cm/sec PA V2 max: 102.8 cm/sec Ao max P.3 mmHg LV V1 max P.9 mmHg Ao V2 mean: 128.3 cm/sec LV V1 mean P.9 mmHg Ao mean P.2 mmHg LV V1 mean: 65.1 cm/sec Ao V2 VTI: 43.0 cm LV V1 VTI: 23.1 cm TR max minor: 271.2 cm/sec TR max P.4 mmHg Interpretation Summary The study was technically difficult. Contrast injection was performed. Left ventricular systolic function is normal. The estimated ejection fraction is 65 %. The left atrium is mildly enlarged. There is moderate mitral annular calcification. Extension of the mitral annular calcification onto the posterior mitral valve leaflet. Trivial mitral valve insufficiency. Trivial tricuspid valve insufficiency. Right ventricular systolic pressure estimated to be 32 mmHg. Diastolic function is indeterminate. Ordering Physician: Hernesto Brar Referring Physician: Thiago Reid Performed By: Kelle Chavira, CATALINA, RVT
--- NOTE | 2019-04-18 10:42 | STRESSREP ---
Stress Test Report Date: 04-18-19 Procedure: Pharmacologic stress nuclear imaging study Indications: Chest pain Consent: Per the patient Procedure: The patient underwent pharmacologic (Regadenoson) evaluation with a peak heart rate of 112 beats per minute (73 %predicted maximal heart rate) and a peak blood pressure of 160/70 mmHg. The baseline ECG demonstrated normal sinus rhythm. The peak pharmacologic ECG demonstrated no obvious ECG changes. There were no cardiac dysrhythmias pretest, during pharmacologic infusion, or recovery. There was no complaint of chest discomfort during pharmacologic infusion or recovery. The examination was discontinued secondary to completion of protocol. Impression: 1. Pharmacologic (Regadenoson) evaluation 2. Peak pharmacologic ECG with no obvious ECG changes. 3. There were no cardiac dysrhythmias pretest, during pharmacologic infusion, or recovery. 4. Nuclear images pending Myocardial perfusion imaging study: Technique: The patient was injected with 14.8 millicuries of technetium 99m Cardiolite and subsequently rest SPECT Cardiolite nuclear imaging was obtained in the horizontal long, vertical long, and short axis views. The patient underwent pharmacologic (Regadenoson) evaluation with a peak heart rate of 112 beats per minute (73 % percent predicted maximal heart rate) and a peak blood pressure of 160/70 mmHg. The patient was injected with 44.8 millicuries of technetium 99m Cardiolite and subsequently stress SPECT Cardiolite nuclear imaging was obtained in the horizontal long, vertical long, and short axis views. A gated Cardiolite study at peak stress was obtained. Interpretation: Rest and stress SPECT Cardiolite nuclear imaging status post realignment, normalization, and attenuation correction demonstrate relative uniform tracer uptake and myocardial perfusion appearing within normal limits. There is end systolic thickening and brightening. The gated Cardiolite study demonstrates myocardial thickening and inward wall motion. The reported LVEF is 69 %. Impression: 1. Rest and stress SPECT Cardiolite nuclear imaging demonstrate relative uniform tracer uptake and myocardial perfusion appearing within normal limits. 2. The gated Cardiolite study reports an LVEF of 69 %. This note was generated with [employer] software. It may contain incorrect words, spelling, and punctuation that were not noted in checking the note before signing.
== END | disposition home or self-care (01) ==
LOC: CVS 06:45
PROVIDERS: Family Provider Family Medicine; PCP Family Medicine; Referring Provider Internal Medicine Cardiovascular Disease; Visit Provider Internal Medicine Cardiovascular Disease
DX: E78.5 Hyperlipidemia, unspecified (principal); I10 Essential (primary) hypertension; I27.20 Pulmonary hypertension, unspecified; R07.9 Chest pain, unspecified
CPT/HCPCS: 78452; 93017; 93306; A9500; Q9957; A4216; C8929; J2785

== ENCOUNTER → 2019-05-31 | Outpatient (CLI) | payer MEDICARE, OTHER, SELFPAY ==
[2019-05-16 10:33] VITALS: BMI 45.1
[2019-05-31 12:34] LABS: Basophil# 0.07 X10^3/uL; Basophil% 0.8 % (0-1); Eosinophil# 0.34 X10^3/uL; Eosinophils% 3.7 % (0-5); Hematocrit 39.7 % (37-47); Hemoglobin 13.4 g/dL (12.0-15.0); Lymphocyte % 21.8 % (19-41); Mean Corp Hgb Conc 33.8 g/dL (32-36); Mean Corpuscular Hgb 29.9 pg (27.0-32.0); Mean Corpuscular Volume 88.6 fL (81-99); Mean Platelet Vol. 9.7 fl (6.2-12.0); Monocyte# 0.77 X10^3/uL; Monocyte% 8.4 % (0-10); NRBC Flagged by Analyzer 0 % (0-5); Neutrophil # 5.97 X10^3/uL (2.7-7.7); Neutrophil % 64.9 % (47-70); Platelet Count 271 K/mm3 (150-450); RBC Distribution Width CV 13.2 % (11.6-14.6); RBC Distribution Width SD 42.7 fl (35.1-43.9); Red Blood Count 4.48 M/mm3 (4.2-5.4); White Blood Count 9.2 K/mm3 (4.4-11.0)
[2019-05-31 12:58] LABS: CRP < 2.90 mg/L (0.0-3.0)
[2019-05-31 13:09] LABS: Erythrocyte Sedimentation Rate 18 mm/hr (0-30)
== END | disposition home or self-care (01) ==
LOC: MTLAB 10:06
PROVIDERS: Family Provider Family Medicine; PCP Family Medicine; Referring Provider Ophthalmology; Visit Provider Ophthalmology
DX: G45.3 Amaurosis fugax (principal)
CPT/HCPCS: 36415; 85025; 85652; 86140

== ENCOUNTER → 2019-10-04 08:11 | Outpatient (CLI) | payer MEDICARE, OTHER, SELFPAY ==
[2019-09-21 11:05] VITALS: BMI 46.4
--- NOTE | 2019-10-04 08:13 | CT_ITS ---
STUDY: CT CHEST WITH CONTRAST REASON FOR EXAM: Female, 69 years old. Chest pain pulmonary fibrosis pulmonary hypertension RADIATION DOSAGE (If Supplied By Facility): CTDIvol = ( 14.38 ) mGy, DLP = ( 564.05 ) mGycm TECHNIQUE: Transaxial imaging was performed following intravenous administration of 100ML ISOVUE 370. Individualized dose optimization techniques were used for this CT. COMPARISON: 14 October 2017 FINDINGS: Lungs are clear. There is no pulmonary fibrosis. Pleural surfaces are intact. Central airways are patent. Mediastinal contents are normal. Cardiac changes are normal in size and shape. Aorta and pulmonary artery are unremarkable. There are no imaging findings are of pulmonary hypertension. There is moderate coronary artery disease and mild to moderate aortic atherosclerosis without stenosis or an effusion. Osseous structures are unremarkable. Appearance is similar to prior. CT/Chest WITH Contrast IMPRESSION: 1. Moderate coronary artery disease. Refer to definitive assessment. 2. Otherwise unremarkable chest CT. 3. No change since 2017. Electronically Signed: Mariola Allen, at 17:01 EST Tel , Service support ,
[2019-10-04 08:56] LABS: CREATININE FINGERSTICK 0.6 mg/dL (0.55-1.02); EGFR FINGERSTICK > 60.0000 mL/min (>60)
== END ==
PROVIDERS: Family Provider Family Medicine; PCP Family Medicine; Referring Provider Internal Medicine Cardiovascular Disease; Visit Provider Internal Medicine Cardiovascular Disease
DX: R07.9 Chest pain, unspecified (principal); I27.20 Pulmonary hypertension, unspecified; E78.5 Hyperlipidemia, unspecified; I10 Essential (primary) hypertension
CPT/HCPCS: 71260; Q9967

== ENCOUNTER → 2020-07-08 06:51 | Outpatient (CLI) | payer MEDICARE, OTHER, SELFPAY ==
[2020-06-23 09:30] VITALS: BMI 44.4
[2020-07-08 07:35] LABS: Bedside Glucose 160 mg/dL (70-110)
--- NOTE | 2020-07-08 10:15 | STRESSREP_ITS ---
Stress Test Report Date: 07-08-2020 Procedure: Pharmacologic stress nuclear imaging study Indications: Chest pain; pulmonary hypertension Consent: Per the patient Procedure: The patient underwent pharmacologic (Regadenoson) evaluation with a peak heart rate of 123 beats per minute (80 %predicted maximal heart rate) and a peak blood pressure of 142/72 mmHg. The baseline ECG demonstrated normal sinus rhythm. The peak pharmacologic ECG demonstrated no obvious ECG changes. There were no cardiac dysrhythmias pretest, during pharmacologic infusion, or recovery. There was no complaint of chest discomfort during pharmacologic infusion or recovery. The examination was discontinued secondary to completion of protocol. Impression: 1. Pharmacologic (Regadenoson) evaluation 2. Peak pharmacologic ECG with no obvious ECG changes. 3. There were no cardiac dysrhythmias pretest, during pharmacologic infusion, or recovery. 4. Nuclear images pending Myocardial perfusion imaging study: Technique: The patient was injected with 14.7 millicuries of technetium 99m Cardiolite and subsequently rest SPECT Cardiolite nuclear imaging was obtained in the horizontal long, vertical long, and short axis views. The patient underwent pharmacologic (Regadenoson) evaluation with a peak heart rate of 123 beats per minute (80 % percent predicted maximal heart rate) and a peak blood pressure of 142/72 mmHg. The patient was injected with 44.5 millicuries of technetium 99m Cardiolite and subsequently stress SPECT Cardiolite nuclear imaging was obtained in the horizontal long, vertical long, and short axis views. A gated Cardiolite study at peak stress was obtained. Interpretation: Rest and stress SPECT Cardiolite nuclear imaging status post realignment, normalization, and attenuation correction demonstrate at rest the appearance of a small area of subtle diminished tracer uptake near the distal anterior segments which appears to improve/normalize following stress. There is end systolic thickening and brightening. The gated Cardiolite study demonstrates myocardial thickening and inward wall motion. The reported LVEF is 80 %. Impression: 1. Rest and stress SPECT current nuclear imaging demonstrate at rest a small area of subtle diminished tracer uptake near the distal anterior segments which appears to improve/normalize following stress appearing compatible shifting soft tissue attenuation/artifact with no myocardial perfusion changes considered diagnostic for associated stress-induced myocardial ischemia. 2. The gated Cardiolite study reports an LVEF of 80 %. This note was generated with [employer] software. It may contain incorrect words, spelling, and punctuation that were not noted in checking the note before signing.
== END ==
PROVIDERS: PCP Family Medicine; Referring Provider Physician Assistant Medical; Visit Provider Physician Assistant Medical
DX: R07.9 Chest pain, unspecified (principal)
CPT/HCPCS: 78452; 82962; 93017; A9500; A4216; J2785

== ENCOUNTER → 2020-08-12 15:06 | Outpatient (CLI) | payer MEDICARE, OTHER, SELFPAY ==
[2020-07-14 13:29] VITALS: BMI 44.4
[2020-08-12 18:31] LABS: Thyroid Stim Hormone (TSH) < 0.01 uIU/mL (0.358-3.74)
== END ==
PROVIDERS: PCP Internal Medicine; Referring Provider Internal Medicine; Visit Provider Internal Medicine
DX: E03.9 Hypothyroidism, unspecified (principal)
CPT/HCPCS: 36415; 84443

== ENCOUNTER → 2020-08-13 15:00 | Outpatient (CLI) ==
[2020-08-13 17:18] LABS: Free T3 6.6 pg/mL (2.18-3.98); T4 Free Direct 1.71 ng/dL (0.76-1.46)
[2020-08-15 14:09] LABS: Thyroid Peroxidase AB 40 IU/mL (0-34)
[2020-08-15 15:31] LABS: Thyroglobulin Antibody < 1.0 IU/mL (0.0-0.9)
== END ==
PROVIDERS: Internal Medicine
DX: E03.9 Hypothyroidism, unspecified (principal); R79.89 Other specified abnormal findings of blood chemistry
CPT/HCPCS: 36415; 84439; 84481; 86376; 86800

== ENCOUNTER → 2020-08-18 14:21 | Outpatient (CLI) | payer MEDICARE, OTHER, SELFPAY ==
[2020-07-14 13:29] VITALS: BMI 44.4
--- NOTE | 2020-08-18 14:22 | US_ITS ---
STUDY: THYROID ULTRASOUND REASON FOR EXAM: Female, 69 years old. NODULES . Elevated free T3 and free T4. TECHNIQUE: Ultrasound evaluation of the thyroid was performed with real-time and static quintero-scale imaging. COMPARISON: Comparison is made with prior study dated 03/06/2018. FINDINGS: RIGHT LOBE: The right lobe of the thyroid gland measures 4.5 cm x 2.2 cm x 1.9 cm. There is a heterogeneous echotexture. Stable dominant solid nodule in the midpole of the right lobe measuring 1.8 cm x 1.5 cm x 1.6 cm. Stable hypoechoic solid nodule measuring 6 mm x 5 mm x 4 mm in the mid lower pole. Intranodular vascularity is seen. LEFT LOBE: The left lobe of the thyroid gland measures 4.3 cm x 1.8 cm x 1.6 cm. There is a heterogeneous echotexture. Stable subcentimeter solid nodules in the left lobe. The largest measures 7 mm x 6 mm x 4 mm. ISTHMUS: The isthmus measures 4.0 mm. The regional lymph nodes are normal. US/Thyroid IMPRESSION: Stable examination. Electronically Signed: Delano Alegria, at 15:05 EDT , Service support ,
== END ==
PROVIDERS: PCP Internal Medicine; Referring Provider Internal Medicine; Visit Provider Internal Medicine
DX: R94.6 Abnormal results of thyroid function studies (principal); Z86.39 Personal history of other endocrine, nutritional and metabolic disease
CPT/HCPCS: 76536

== ENCOUNTER → 2020-08-20 14:08 | Outpatient (CLI) | payer MEDICARE, OTHER, SELFPAY ==
[2020-07-14 13:29] VITALS: BMI 44.4
--- NOTE | 2020-08-20 14:10 | EKG12_ITS ---
Test Reason : ARRYTHMIA Blood Pressure : / mmHG Vent. Rate : 100 BPM Atrial Rate : 100 BPM P-R Int : 152 ms QRS Dur : 078 ms QT Int : 336 ms P-R-T Axes : 046 001 042 degrees QTc Int : 433 ms Normal sinus rhythm Normal ECG Confirmed by YANA JARVIS, DENISE ([id number]), visual effects editor JUSTO LIM ([id number]) on 08/25/2020 1:04:38 PM Referred By: Ora Nam Confirmed By:DENISE MILLAN MD
== END ==
PROVIDERS: PCP Internal Medicine; Referring Provider Internal Medicine; Visit Provider Internal Medicine
DX: R00.2 Palpitations (principal)
CPT/HCPCS: 93005

== ENCOUNTER → 2020-08-28 12:47 | Outpatient (CLI) | payer MEDICARE, OTHER, SELFPAY ==
[2020-08-20 14:41] VITALS: BMI 45.1
== END ==
PROVIDERS: PCP Internal Medicine; Referring Provider Internal Medicine; Visit Provider Internal Medicine
DX: R00.2 Palpitations (principal); E05.90 Thyrotoxicosis, unspecified without thyrotoxic crisis or storm
CPT/HCPCS: 36415; 84445; 93225; 93226

== ENCOUNTER 2020-09-03 09:17 | Emergency (ER) | payer MEDICARE, OTHER, SELFPAY ==
[2020-08-20 14:41] VITALS: BMI 45.1
[2020-09-03 09:17] VITALS: BP 142/75; PULSE 103; RESP 30; TEMP 36.4; O2SAT 99; BMI 43.9
--- NOTE | 2020-09-03 09:29 | EKG12_ITS ---
Test Reason : CP Blood Pressure : / mmHG Vent. Rate : 108 BPM Atrial Rate : 108 BPM P-R Int : 000 ms QRS Dur : 082 ms QT Int : 300 ms P-R-T Axes : 000 004 016 degrees QTc Int : 402 ms Atrial fibrillation with rapid ventricular response Possible Inferior infarct , age undetermined Abnormal ECG Confirmed by ANGIE JARVIS, DARRYL ([id number]), television news video editor ASHLI BARBOSA ([id number]) on 09/04/2020 2:36:37 PM Referred By: BB Confirmed By:OCTAVIO ADAMS MD
--- NOTE | 2020-09-03 09:42 | EKG12_ITS ---
Test Reason : REPEAT Blood Pressure : / mmHG Vent. Rate : 097 BPM Atrial Rate : 097 BPM P-R Int : 166 ms QRS Dur : 086 ms QT Int : 360 ms P-R-T Axes : 061 000 025 degrees QTc Int : 457 ms Normal sinus rhythm Normal ECG Confirmed by ANGIE JARVIS, DARRYL ([id number]), or director KIM RAMIREZ ([id number]) on 09/04/2020 12:59:35 PM Referred By: VENKATA Confirmed By:OCTAVIO ADAMS MD
--- NOTE | 2020-09-03 09:42 | RAD_ITS ---
STUDY: X-RAY CHEST REASON FOR EXAM: Female, 70 years old. SOB, CHEST PAIN, SHAKINESS TECHNIQUE: AP upright portable view. COMPARISON: None. FINDINGS: The lungs are clear and expanded. There is no demonstrated pleural abnormality. Normal size heart. Normal mediastinum and jennifer. Normal visualized pulmonary arteries. Normal visualized aortic arch and descending thoracic aorta. Normal visualized thoracic spine. Normal visualized ribs, clavicles, and shoulders. There is no demonstrated abnormality of the visualized soft tissue structures of the upper abdomen. RAD/Chest 1 View (Portable) IMPRESSION: Normal x-ray examination of the chest. Electronically Signed: Dylon Domingo MD at 11:02 EST , Service support ,
--- NOTE | 2020-09-03 09:44 | ED.DCSUM_ITS ---
History of Present Illness Chief Complaint: Shortness of Breath Informant: Patient Onset: Days Context: Gradual Onset Timing: Intermittent Narrative: She is a 70-year-old female with history of TIA and currently under evaluation for likely Graves' disease presenting from home with worsening palpitations, shortness of breath and tremor. Patient was started on metoprolol for elevated heart rate 2 weeks ago and is pending evaluation by endocrinology. She is had low TSH levels and an elevated TSH immunoglobulin on outpatient labs. She states this morning she developed particularly bad palpitations and shortness of breath. She is currently starting to feel little better however. She has had some increased one of her lower extremities, left greater than right and dyspnea on exertion. She is not on any anticoagulation. She has appointment to see endocrinology in 1 month, Dr. Leggett. Patient denies any vomiting but does report some nausea and some increased bowel movements. No black or bloody stools. No fever or upper respiratory symptoms. Does have chest pain but contributes that more to her palpitations. Past Medical History - Allergies and Home Meds Allergies/Adverse Reactions: Allergies amoxicillin Allergy (Verified 09/03/20:) Unknown duloxetine [From Cymbalta] Allergy (Verified 09/03/20:17) neuropathy losartan [Losartan] Allergy (Verified 09/03/20:17) Unknown ramipril Allergy (Verified 09/03/20:17) Unknown ranitidine HCl [From Zantac] Allergy (Verified 09/03/20:17) Unknown meloxicam [From Mobic] Adverse Reaction (Severe, Verified 09/03/20:) Heartburn celecoxib [From Celebrex] Adverse Reaction (Verified 09/03/20:) Upset Stomach cortisone Adverse Reaction (Verified 09/03/20:17) emotional issues glimepiride Adverse Reaction (Verified 09/03/20:17) Nausea/Vom/Diarrhea metformin HCl [From Glucophage] Adverse Reaction (Verified 09/03/20:17) Nausea/Vom/Diarrhea methotrexate Adverse Reaction (Verified 09/03/20:17) Unknown Penicillins Adverse Reaction (Verified 09/03/20:17) Nausea/Vom/Diarrhea Primary Care Physician: Ora Nam MD [Primary Care Provider] - Hernesto Brar MD [STAFF PHYSICIAN] - Wilfred Leggett MD [STAFF PHYSICIAN] - Past Medical History: - - hyperthyroid, Graves' disease, high pretension, GERD, diabetes mellitus, hyperlipidemia Surgical History: noncontributory Smoking Status: Never smoker Review of Systems General: Reports: Malaise, Sweats. Denies: Chills, Fever, Weight loss Eyes: Denies: Visual changes - bilaterally, Diplopia ENT: Denies: Rhinorrhea, Sore throat Cardiovascular: Reports: Chest pain, Palpitations, Heart racing Respiratory: Reports: Dyspnea. Denies: Cough, Dyspnea on exertion Gastrointestinal: Reports: Nausea. Denies: Abdominal pain, Vomiting, Diarrhea, Melena, Hematochezia Genitourinary: Denies: Dysuria, Hematuria, Frequency Musculoskeletal: Denies: Back pain, Extremity Pain Skin: Reports: - - tremor . Denies: Rash, Wounds Neurological: Denies: Headache, Weakness, Numbness Physical Exam Vital Signs/Narrative: Vital Signs Temp Pulse Resp BP Pulse Ox 09/03/20 09:17 97.5 F L 103 H 30 H 142/75 H 99 Inital Vital Signs reviewed: Yes General: Well nourished, Well developed, Obese, No Acute Distress Head: Normocephalic, Atraumatic Eyes: Perrl, EOMI ENT: Moist mucous membranes, No rhinorrhea Neck: Supple, Nontender, No JVD Cardiovascular: No murmurs, Irregular, Tachycardia Respiratory: No distress, CTA bilaterally, Chest nontender. Negative for: Diminished, Decreased Air Movement Abdomen: Soft, Nontender, Nondistended, Normal bowel sounds Back: Nontender, Normal Inspection Extremities: Nontender, No edema Skin: Normal color, No rash Neurological: Alert, Oriented x3, Cranial nerves II-XII grossly intact, Normal Strength, Normal Sensation Psychological: Normal affect, Normal Mood, - - anxious Diagnostic/Tx/Re-eval Chest X-Ray - ED: 1 View, Read by ED Physician, Read by Radiologist, No Acute Disease Clinical Impression(s) from Imaging Studies Chest X-Ray 09/03/20 09:42 IMPRESSION: Normal x-ray examination of the chest. Electronically Signed: Dylon Domingo MD at 11:02 EST , Service support , Laboratory Data 09/03/20 09/03/20 09/03/20 09:30 09:30 09:30 WBC 7.1 RBC 4.27 Hgb 12.6 Hct 37.6 MCV 88.1 MCH 29.5 MCHC 33.5 RDW Std Deviation 39.9 RDW Coeff of Bhargav 12.5 Plt Count 301 MPV 9.4 Immature Gran % (Auto) 0.300 Neut % (Auto) 52.1 Lymph % (Auto) 32.5 [place] % (Auto) 11.2 H Eos % (Auto) 3.5 Baso % (Auto) 0.4 Absolute Neuts (auto) 3.7 Absolute Lymphs (auto) 2.32 Nucleated RBC % 0 PT 13.8 INR 1.1 APTT 32.3 D-Dimer Quant (PE/DVT) 0.67 H* Sodium 136 Potassium 3.5 Chloride 101 Carbon Dioxide 27.0 Anion Gap 8 BUN 19 H Creatinine 0.68 Estim Creat Clear Calc 41.99 Est GFR (MDRD) Af Amer 110 Est GFR (MDRD) Non-Af 91 BUN/Creatinine Ratio 27.8 H Glucose 172 H Calcium 9.0 Total Bilirubin 0.40 AST 13 L ALT 24 Alkaline Phosphatase 77 Troponin I < 0.015 B-Natriuretic Peptide Total Protein 7.2 Albumin 3.3 Globulin 3.9 Albumin/Globulin Ratio 0.8 L Lipase 87 TSH < 0.01 L Free T4 2.16 H Free T3 pg/dL 6.2 H 09/03/20 09/03/20 09:30 12:30 WBC RBC Hgb Hct MCV MCH MCHC RDW Std Deviation RDW Coeff of Bhargav Plt Count MPV Immature Gran % (Auto) Neut % (Auto) Lymph % (Auto) [place] % (Auto) Eos % (Auto) Baso % (Auto) Absolute Neuts (auto) Absolute Lymphs (auto) Nucleated RBC % PT INR APTT D-Dimer Quant (PE/DVT) Sodium Potassium Chloride Carbon Dioxide Anion Gap BUN Creatinine Estim Creat Clear Calc Est GFR (MDRD) Af Amer Est GFR (MDRD) Non-Af BUN/Creatinine Ratio Glucose Calcium Total Bilirubin AST ALT Alkaline Phosphatase Troponin I < 0.015 B-Natriuretic Peptide 70.6 Total Protein Albumin Globulin Albumin/Globulin Ratio Lipase TSH Free T4 Free T3 pg/dL - Rhythm Strip Rhythm Strip: A-fib Rate: 108 Ectopy: None - EKG Initial EKG Interpretation: Atrial Fibrillation, - - Fibrillation at a rate of 108 Normal axis Normal intervals Normal ST segments Prior: Changed Follow-up EKG Interpretation: Sinus Rhythm - Rhythm and rate of 97 Normal axis Normal intervals Normal ST segments - Medical Decision Making Patient evaluated for worsening palpitations, tachycardia and tremor. She is currently under evaluation for likely Graves' disease. Initial EKG shows atrial fibrillation but then on repeat evaluation patient seen to be in sinus rhythm and repeat EKG now shows sinus rhythm. Patient is a normal neurologic exam. Troponin is negative x2. Her D-dimer is mildly elevated but is normal per age adjusted D-dimer. I suspect her underlying cause of her's presentation is her Graves' disease. Do not think patient is in thyroid storm. Case is discussed with endocrinology who recommend starting her on 10 mg of methimazole daily. She has instructed the patient watch out for fever, summer like rash or hepatitis/flulike symptoms/brown or dark urine. Patient is agreeable with this. I did discuss the case with cardiology on-call, Dr. Brar, about whether to anticoagulate the patient since she did present in A. fib. He recommends Eliquis given her chadsvas2 score of 4. Given first dose of methimazole and Eliquis in the emergency room. Patient is counseled on the risk and benefits of anticoagulation and agreeable with this. I also consulted patient's PCP to make him aware of patient's plan of care. Patient is counseled on signs and symptoms requiring return to the emergency room. Patient verbalizes agreement and understand this plan. Patient discharged home in stable and improved condition. ED Disposition - Plan for ED Patient: Disposition: Home or Assisted Living Diagnosis: Atrial fibrillation, Hyperthyroidism Instructions: ED AFIB, ED Hyperthyroidism Prescriptions: Apixaban [Eliquis] 5 mg PO BID #60 tab Transmission Status: Received by [facility][id number] Methimazole 10 mg PO DAILY #30 tab Transmission Status: Received by [facility] #[id number] Referrals: Ora Nam MD [Primary Care Provider] - Wilfred Leggett MD [STAFF PHYSICIAN] - Hernesto Brar MD [STAFF PHYSICIAN] - Additional Instructions: Your started on methimazole which will help bring down your thyroid levels. Please watch out for fever, severe rash that is like a sunburn or any flulike symptoms/brown or dark urine over the next few weeks. Please make sure you rest for the next 4 to 5 days until methimazole can start working to avoid any stress on your heart. You have been started on a blood thinner, Eliquis which does increase your risk of bleeding and please return the emergency room should you develop any black or bloody stools or if you have any head injuries.
[2020-09-03 10:06] LABS: Absolute Lymphocyte Count 2.32 X10^3/uL (0.83-4.51); Absolute Neutrophil Count 3.7 X10^3/uL (2.0-7.7); Basophil# 0.03 X10^3/uL; Basophil% 0.4 % (0-1); Eosinophil# 0.25 X10^3/uL; Eosinophils% 3.5 % (0-5); Hematocrit 37.6 % (37-47); Hemoglobin 12.6 g/dL (12.0-15.0); Lymphocyte # 2.32 X10^3/ul (4.0); Lymphocyte % 32.5 % (19-41); Mean Corp Hgb Conc 33.5 g/dL (32-36); Mean Corpuscular Hgb 29.5 pg (27.0-32.0); Mean Corpuscular Volume 88.1 fL (81-99); Mean Platelet Vol. 9.4 fl (6.2-12.0); Monocyte% 11.2 % (0-10); NRBC Flagged by Analyzer 0 % (0-5); Neutrophil # 3.71 X10^3/uL (2.7-7.7); Neutrophil % 52.1 % (47-70); Platelet Count 301 K/mm3 (150-450); RBC Distribution Width CV 12.5 % (11.6-14.6); RBC Distribution Width SD 39.9 fl (35.1-43.9); Red Blood Count 4.27 M/mm3 (4.2-5.4); White Blood Count 7.1 K/mm3 (4.4-11.0)
[2020-09-03] MEDS: Ondansetron 4 MG/2 ML Vial IV (10:10)
[2020-09-03] MEDS: 0.9% Normal Saline 1,000 ML 150 ML IV (10:10)
[2020-09-03 10:21] LABS: International Normalized Ratio 1.1; Partial Thromboplast Time 32.3 Seconds (24.1-36.2); Prothrombin Time (Protime)PT. 13.8 SECONDS (11.7-14.9)
[2020-09-03 10:30] LABS: ALB/GLOB Ratio 0.8 RATIO (0.9-2.4); AST(SGOT) 13 U/L (15-37); Alanine Aminotransfer ALT/SGPT 24 U/L (13-56); Albumin, Serum 3.3 g/dL (3.2-5.0); Alkaline Phosphatase 77 U/L (45-117); Anion Gap 8 (5-15); BUN 19 mg/dL (7-18); BUN/Creat Ratio 27.8 RATIO (10-20); Chloride 101 mmol/L (98-107); Creatinine, Serum 0.68 mg/dL (0.55-1.02); EST Glomerular Filtration Rate 91 mL/min (>60); Est Glom Filt Rate - Afr Amer 110 mL/min (>60); Estimated Creatinine Clearance 41.99 ml/min; Free T3 6.2 pg/mL (2.18-3.98); Globulin 3.9 g/dL (2.2-4.2); Glucose 172 mg/dL (74-106); Lipase 87 U/L (73-393); Potassium 3.5 mmol/L (3.5-5.1); Protein, Total 7.2 g/dL (6.4-8.2); Sodium Level 136 mmol/L (136-145); T4 Free Direct 2.16 ng/dL (0.76-1.46); Thyroid Stim Hormone (TSH) < 0.01 uIU/mL (0.358-3.74)
[2020-09-03 10:32] LABS: BNP,B-Type NATRIURETIC PEPTIDE 70.6 pg/mL (0-100)
[2020-09-03 10:35] LABS: D-Dimer Quantitative (DVT/PE) 0.67 FEU/ug/m (0.27-0.49)
[2020-09-03 11:00] VITALS: BP 141/59; PULSE 83; RESP 16; O2SAT 99
[2020-09-03 12:08] VITALS: BP 133/59; PULSE 85; RESP 14; O2SAT 99
[2020-09-03 13:39] VITALS: BP 130/57; PULSE 81; RESP 19; O2SAT 97
[2020-09-03] MEDS: METHIMAZOLE 5 MG TABLET 10 MG PO (14:56)
[2020-09-03] MEDS: APIXABAN 5 MG TABLET PO (14:56)
[2020-09-03 14:58] VITALS: BP 135/59; PULSE 81; RESP 18; O2SAT 99
== END 2020-09-03 14:58 | disposition home or self-care (01) ==
PROVIDERS: Emergency Provider Emergency Medicine; PCP Internal Medicine
DX: I48.91 Unspecified atrial fibrillation (principal); E05.90 Thyrotoxicosis, unspecified without thyrotoxic crisis or storm; R11.0 Nausea; E11.9 Type 2 diabetes mellitus without complications; E78.5 Hyperlipidemia, unspecified; K21.9 Gastro-esophageal reflux disease without esophagitis; E66.9 Obesity, unspecified; Z79.899 Other long term (current) drug therapy; Z79.82 Long term (current) use of aspirin; Z86.73 Personal history of transient ischemic attack (TIA), and cerebral infarction without residual deficits
CPT/HCPCS: 36415; 71045; 80053; 83690; 83880; 84439; 84443; 84481; 84484; 85025; 85379; 85610; 85730; 93005; 96374; 99285; J7030; A4216; J2405

== ENCOUNTER → 2020-09-18 14:09 | Outpatient (CLI) | payer MEDICARE, OTHER, SELFPAY ==
[2020-09-03 09:17] VITALS: BMI 43.9
[2020-09-18 18:26] LABS: Free T3 4.2 pg/mL (2.18-3.98); T4 Free Direct 1.15 ng/dL (0.76-1.46); Thyroid Stim Hormone (TSH) < 0.01 uIU/mL (0.358-3.74)
== END ==
PROVIDERS: PCP Internal Medicine; Referring Provider Internal Medicine; Visit Provider Internal Medicine
DX: E05.90 Thyrotoxicosis, unspecified without thyrotoxic crisis or storm (principal); R00.2 Palpitations
CPT/HCPCS: 36415; 84439; 84443; 84481

== ENCOUNTER → 2020-10-14 10:10 | Outpatient (CLI) | payer MEDICARE, OTHER, SELFPAY | PROVIDERS: PCP Internal Medicine; Referring Provider Internal Medicine; Visit Provider Internal Medicine | DX: U07.1 COVID-19 (principal) | CPT/HCPCS: 87635; C9803; U0003 ==

== ENCOUNTER → 2020-10-22 14:49 | Outpatient (CLI) | payer MEDICARE, OTHER, SELFPAY ==
--- NOTE | 2020-10-22 14:51 | RAD_ITS ---
STUDY: X-RAY CHEST REASON FOR EXAM: Female, 70 years old. cough, congestion, recent covid TECHNIQUE: Frontal and lateral views of the chest COMPARISON: 03 September 2020 FINDINGS: The lungs are clear and expanded. There is no demonstrated pleural abnormality. Normal size heart. Normal mediastinum and jennifer. Normal visualized pulmonary arteries. Normal visualized aortic arch and descending thoracic aorta. Normal visualized thoracic spine. Normal visualized ribs, clavicles, and shoulders. There is no demonstrated abnormality of the visualized soft tissue structures of the upper abdomen. RAD/Chest PA and Lateral IMPRESSION: Normal x-ray examination of the chest. Electronically Signed: Mariola Allen, at 15:57 EST Tel , Service support ,
[2020-10-22 17:47] LABS: Absolute Lymphocyte Count 2.32 X10^3/uL (0.83-4.51); Absolute Neutrophil Count 4.2 X10^3/uL (2.0-7.7); Basophil# 0.03 X10^3/uL; Basophil% 0.4 % (0-1); Eosinophil# 0.18 X10^3/uL; Eosinophils% 2.5 % (0-5); Hematocrit 40.7 % (37-47); Hemoglobin 13.7 g/dL (12.0-15.0); Lymphocyte # 2.32 X10^3/ul (4.0); Lymphocyte % 31.8 % (19-41); Mean Corp Hgb Conc 33.7 g/dL (32-36); Mean Corpuscular Hgb 28.7 pg (27.0-32.0); Mean Corpuscular Volume 85.1 fL (81-99); Mean Platelet Vol. 9.6 fl (6.2-12.0); Monocyte% 8.2 % (0-10); NRBC Flagged by Analyzer 0 % (0-5); Neutrophil # 4.15 X10^3/uL (2.7-7.7); Neutrophil % 56.8 % (47-70); Platelet Count 276 K/mm3 (150-450); RBC Distribution Width SD 40.3 fl (35.1-43.9); Red Blood Count 4.78 M/mm3 (4.2-5.4); White Blood Count 7.3 K/mm3 (4.4-11.0)
[2020-10-22 18:18] LABS: ALB/GLOB Ratio 0.9 RATIO (0.9-2.4); AST(SGOT) 26 U/L (15-37); Alanine Aminotransfer ALT/SGPT 45 U/L (13-56); Albumin, Serum 3.6 g/dL (3.2-5.0); Alkaline Phosphatase 95 U/L (45-117); Anion Gap 7 (5-15); BUN 20 mg/dL (7-18); BUN/Creat Ratio 24.9 RATIO (10-20); Calcium,Total 8.7 mg/dL (8.5-10.1); Chloride 100 mmol/L (98-107); EST Glomerular Filtration Rate 75 mL/min (>60); Est Glom Filt Rate - Afr Amer 91 mL/min (>60); Free T3 3.5 pg/mL (2.18-3.98); Globulin 3.9 g/dL (2.2-4.2); Glucose 180 mg/dL (74-106); Potassium 4.1 mmol/L (3.5-5.1); Protein, Total 7.5 g/dL (6.4-8.2); Sodium Level 134 mmol/L (136-145)
[2020-10-28 11:59] LABS: T4 Free Direct 1.09 ng/dL (0.76-1.46); Thyroid Stim Hormone (TSH) < 0.01 uIU/mL (0.358-3.74)
== END ==
PROVIDERS: PCP Internal Medicine; Referring Provider Internal Medicine; Visit Provider Internal Medicine
DX: E05.90 Thyrotoxicosis, unspecified without thyrotoxic crisis or storm (principal); I10 Essential (primary) hypertension; R05 Cough
CPT/HCPCS: 36415; 71046; 80053; 84439; 84443; 84481; 85025

== ENCOUNTER → 2020-12-04 15:56 | Outpatient (CLI) | payer MEDICARE, OTHER, SELFPAY ==
[2020-11-26 13:25] VITALS: BMI 46.5
[2020-12-04 18:12] LABS: Follicle Stimulating Hormone 12.9 mIU/mL; Free T3 3.2 pg/mL (2.18-3.98); Prolactin 3.8 ng/mL; T4 Free Direct 1.05 ng/dL (0.76-1.46); Thyroid Stim Hormone (TSH) < 0.01 uIU/mL (0.358-3.74)
[2020-12-08 17:03] LABS: Adrenocorticotropic Hormone 11.6 pg/mL (7.2-63.3); Insulin Like Growth Factor 99 ng/mL (52-196)
== END ==
PROVIDERS: PCP Internal Medicine; Referring Provider Internal Medicine Endocrinology, Diabetes & Metabolism; Visit Provider Internal Medicine Endocrinology, Diabetes & Metabolism
DX: E05.90 Thyrotoxicosis, unspecified without thyrotoxic crisis or storm (principal); E23.6 Other disorders of pituitary gland; I48.91 Unspecified atrial fibrillation
CPT/HCPCS: 36415; 82024; 82533; 83001; 83002; 84146; 84305; 84439; 84443; 84481

== ENCOUNTER → 2020-12-10 10:51 | Outpatient (CLI) | payer MEDICARE, OTHER, SELFPAY ==
[2020-11-26 13:25] VITALS: BMI 46.5
--- NOTE | 2020-12-10 10:54 | ECHOCS_ITS ---
Reason For Study: Afib, Aflutter Procedure This was a 2D Doppler, Color Flow transthoracic echocardiogram. The study was technically difficult. Contrast injection was performed. Exam performed in department. Left Ventricle Based upon the 2D echocardiographic and contrast enhanced images obtained there appears to be grossly normal left ventricular size, wall motion, and systolic function. The estimated ejection fraction is 65 %. Diastolic function is indeterminate. Right Ventricle Normal RV size. Normal systolic function. Atria Normal left atrium. Normal right atrium. No doppler evidence for ASD. Mitral Valve There is moderate mitral annular calcification. Extension of the mitral annular calcification onto the base of the posterior mitral valve leaflet. Trivial mitral valve insufficiency. Tricuspid Valve Normal tricuspid valve. Trivial tricuspid valve insufficiency. Unable to estimate RV systolic pressure/pulmonary artery pressure due to technically difficult study. Aortic Valve Trisinus/trileaflet aortic valve. Mild focal aortic valve thickening. Pulmonic Valve The pulmonic valve is not well visualized. Great Vessels Normal sized aortic root. Pericardium/Pleural No pericardial effusion. Medication Diluted definity 5ml given slow IV push to enhance endocardial definition. MMode/2D Measurements & Calculations LVIDd: 4.6 cm IVSd: 0.75 cm Ao root diam: 2.4 cm LVIDs: 2.7 cm LVPWd: 0.88 cm RVDd: 2.7 cm FS: 40.4 % LAV(MOD-bp): 49.4 ml LVAd ap4: 24.6 cm2 SV(MOD-sp4): 40.4 ml LAV(MOD-bp) Indexed: 23.7 ml/m2 EDV(MOD-sp4): 61.8 ml LAV(MOD-sp2): 45.6 ml EDV(sp4-el): 65.3 ml LAV(MOD-sp4): 48.9 ml LVAs ap4: 13.0 cm2 ESV(MOD-sp4): 21.4 ml ESV(sp4-el): 21.9 ml EF(MOD-sp4): 65.4 % EF(sp4-el): 66.4 % SV(sp4-el): 43.3 ml LA A4 area: 18.3 cm2 LA dimension(2D): 3.6 cm RA A4 area: 13.0 cm2 Doppler Measurements & Calculations MV E max minor: 109.5 cm/sec Lat Peak E' Minor: 9.4 cm/sec Med Peak E' Minor: 6.6 cm/sec MV A max minor: 126.4 cm/sec E/E' lat: 11.7 E/E' med: 16.5 MV E/A: 0.87 Ao V2 max: 193.6 cm/sec LV V1 max: 98.1 cm/sec PA V2 max: 76.2 cm/sec Ao max P.0 mmHg LV V1 max P.9 mmHg Ao V2 mean: 140.7 cm/sec Ao mean P.6 mmHg Ao V2 VTI: 40.6 cm Interpretation Summary The study was technically difficult. Contrast injection was performed. Based upon the 2D echocardiographic and contrast enhanced images obtained there appears to be grossly normal left ventricular size, wall motion, and systolic function. The estimated ejection fraction is 65 %. There is moderate mitral annular calcification. Extension of the mitral annular calcification onto the base of the posterior mitral valve leaflet. Trivial mitral valve insufficiency. Trivial tricuspid valve insufficiency. Mild focal aortic valve thickening. Unable to estimate RV systolic pressure/pulmonary artery pressure due to technically difficult study. Diastolic function is indeterminate. Ordering Physician: Hernesto Brar Referring Physician: Ora Nam Performed By: Helen Saab, CAT[place], RVT
== END ==
PROVIDERS: PCP Internal Medicine; Referring Provider Internal Medicine Cardiovascular Disease; Visit Provider Internal Medicine Cardiovascular Disease
DX: I48.0 Paroxysmal atrial fibrillation (principal); I48.92 Unspecified atrial flutter
CPT/HCPCS: 93306; Q9957; A4216; C8929

== ENCOUNTER → 2020-12-22 13:45 | Outpatient (CLI) | payer MEDICARE, OTHER, SELFPAY ==
[2020-12-15 15:10] VITALS: BMI 44.8
[2020-12-22 15:14] LABS: Hematocrit 41.4 % (37-47); Hemoglobin 13.9 g/dL (12.0-15.0); Mean Corp Hgb Conc 33.6 g/dL (32-36); Mean Corpuscular Volume 86.3 fL (81-99); Mean Platelet Vol. 9.5 fl (6.2-12.0); Platelet Count 329 K/mm3 (150-450); RBC Distribution Width CV 13.7 % (11.6-14.6); RBC Distribution Width SD 43.5 fl (35.1-43.9); White Blood Count 9.2 K/mm3 (4.4-11.0)
[2020-12-22 15:38] LABS: Anion Gap 7 (5-15); BUN 20 mg/dL (7-18); BUN/Creat Ratio 36.4 RATIO (10-20); Calcium,Total 9.5 mg/dL (8.5-10.1); Chloride 99 mmol/L (98-107); Creatinine, Serum 0.55 mg/dL (0.55-1.02); EST Glomerular Filtration Rate 116 mL/min (>60); Est Glom Filt Rate - Afr Amer 141 mL/min (>60); Glucose 90 mg/dL (74-106); Phosphorus 3.9 mg/dL (2.5-4.9); Potassium 3.4 mmol/L (3.5-5.1); Sodium Level 137 mmol/L (136-145)
[2020-12-22 15:47] LABS: T4 Free Direct 1.14 ng/dL (0.76-1.46); Thyroid Stim Hormone (TSH) < 0.01 uIU/mL (0.358-3.74)
== END ==
PROVIDERS: Surgery; PCP Internal Medicine; Visit Provider Internal Medicine Endocrinology, Diabetes & Metabolism
DX: Z00.00 Encounter for general adult medical examination without abnormal findings (principal); E05.90 Thyrotoxicosis, unspecified without thyrotoxic crisis or storm
CPT/HCPCS: 36415; 80048; 84100; 84439; 84443; 84481; 85027

== ENCOUNTER → 2020-12-23 09:57 | Outpatient (CLI) | payer MEDICARE, OTHER, SELFPAY ==
[2020-12-15 15:10] VITALS: BMI 44.8
--- NOTE | 2020-12-23 09:58 | CDU_ITS ---
Reason For Study: carotid stenosis Rt. Velocities/BP Lt. Velocities/BP Prox CCA 117.8/25.2 cm/sec. Prox CCA 113.9/29.1 cm/sec. Mid CCA 123.0/25.2 cm/sec. Mid CCA 109.9/23.9 cm/sec. Dist CCA 93.0/22.6 cm/sec. Dist CCA 102.1/22.6 cm/sec. Prox ICA 100.8/26.5 cm/sec. Prox ICA 246.6/36.5 cm/sec. Mid ICA 109.9/31.7 cm/sec. Mid ICA 161.3/31.6 cm/sec. Dist ICA 93.0/25.2 cm/sec. Dist ICA 143.0/31.6 cm/sec. Rt. ICA/CCA = .9. Lt. ICA/CCA = 2.2. Prox ECA 124.3/12.1 cm/sec. Prox ECA 87.6/9.0 cm/sec. Rt. Vert. 59.1/13.4 cm/sec. Lt. Vert. 73.6/17.0 cm/sec. Right Extracranial There is intimal thickening but no significant atherosclerotic plaque noted in the right common carotid artery. There is heterogeneous, irregular atherosclerotic plaque noted in the right internal carotid artery. There is intimal thickening but no significant atherosclerotic plaque noted in the right external carotid artery. Antegrade flow is noted in the right vertebral artery. Left Extracranial There is homogeneous, smooth atherosclerotic plaque noted in the left common carotid artery. There is heterogeneous, irregular atherosclerotic plaque noted in the left internal carotid artery. There is intimal thickening but no significant atherosclerotic plaque noted in the left external carotid artery. Antegrade flow is noted in the left vertebral artery. Procedure Carotid Duplex [id number]. This is a Carotid Duplex examination using B-mode, color flow and specral Doppler. The exam was diagnostic. Exam performed in department. The exam was abbreviated due to the COVID 19 protocol. Interpretation Summary Irregular calcific plaque at the proximal right internal and external carotid arteries <50% stenosis right internal carotid artery <50% stenosis right external carotid artery Irregular calcific plaque at the proximal left internal carotid artery >70% stenosis left internal carotid <50% stenosis left external carotid Patent and antegrade vertebrals bilaterally Abbreviated COVID-19 protocol Ordering Physician: Rusty Sawyer Performed By: Aniceto Jain RVT
== END ==
PROVIDERS: PCP Internal Medicine; Referring Provider Surgery; Visit Provider Surgery
DX: I65.23 Occlusion and stenosis of bilateral carotid arteries (principal); R42 Dizziness and giddiness
CPT/HCPCS: 93880

== ENCOUNTER 2020-12-24 05:20 | Day surgery (SDC) | payer MEDICARE, OTHER, SELFPAY ==
[2020-12-15 15:10] VITALS: BMI 44.8
[2020-12-24] VITALS (11 sets, daily range): BP systolic 130–152; BP diastolic 62–75; PULSE 75–99; RESP 16–18; TEMP 36.3–37.1; O2SAT 92–99; BMI 44.2
--- NOTE | 2020-12-24 | IMM_PTH ---
PATIENT: ANNIKA DOWNEY LOC: [facility] [place] U#:[id number] AGE/SX: 70/F ROOM: RE12/24/[address]: Dr. Rusty Sawyer MD : 1950 BED: DIS: 12/24/2020 SPEC #: [id number] RECD: 01/01/21 12:26 STATUS: TISHA RENaldo #: [id number] SUSAN: 12/24/20 00:[address]: Rusty Sawyer DEPT: IMMUNOHISTOCHEMISTRY RECD BY: Collette Al ENTERED: 01/01/21 12:29 SP TYPE: IMMUNO OTHR DR: Dr. Ora Nam MD Tissues: Thyroid gland, NOS Procedures: HBME (initial) CD56 (add) CK19 (add) GAL-3 (add) HBME (add) PHYSICIAN & INSTITUTION [place] [id number] SPECIMEN INFORMATION: Tissue Source: Thyroid Clinical Info: Graves' disease, hyperthyroidism Specimen Number: [id number] #8, 9 & 12 CPT code: 63908, 29169 x11 METHODOLOGY: Deparaffinized sections of prefer/formalin-fixed tissue or PAP/DQ stained slides are incubated with monoclonal/polyclonal antibodies/oligonucleotide probes. Localization is made via biotin free immunoperoxidase method. Appropriate controls are performed and reacted as expected. Results on target cell population are indicated in the following table: RESULTS: ANTIBODY / CLONE RESULT Block 8 HBME1 (HBME-1) positive CK19 (A53-B/A2.26) positive GAL3 (9C4) positive, weak CD56 (123C3.D5) positive, a few cells Block 9 HBME1 (HBME-1) positive, a few cells CK19 (A53-B/A2.26) positive, focal GAL3 (9C4) positive, weak CD56 (123C3.D5) positive, diffuse Block 12 HBME1 (HBME-1) positive, a few cells CK19 (A53-B/A2.26) negative GAL3 (9C4) negative CD56 (123C3.D5) positive These tests were developed and their performance characteristics determined by [facility]. They may not have been cleared or approved by the U.S. Food and Drug Administration. The FDA has determined that such clearance or approval is not necessary. The above immunohistochemical/dualISH markers are ordered and reviewed by the Pathologist. 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 Multinodular goiter. SJ:armaan 01/02/2021
--- NOTE | 2020-12-24 05:48 | PCM.HP.BLA ---
Problem List (1) Graves disease Status: Chronic History and Physical Date of Admission: 12/24/20 Intake Visit Reasons: DISCUSS THYROID SURGERY Chief Complaint: Discuss thyroid surgery Heat Treat Supervisor Required: No Is patient in pain?: No Allergies amoxicillin Allergy (Verified 12/15/20 15:11) Unknown duloxetine [From Cymbalta] Allergy (Verified 12/15/20 15:11) neuropathy losartan [Losartan] Allergy (Verified 12/15/20 15:11) Unknown ramipril Allergy (Verified 12/15/20 15:11) Unknown ranitidine HCl [From Zantac] Allergy (Verified 12/15/20 15:11) Unknown meloxicam [From Mobic] Adverse Reaction (Severe, Verified 12/15/20 15:11) Heartburn celecoxib [From Celebrex] Adverse Reaction (Verified 12/15/20 15:11) Upset Stomach cortisone Adverse Reaction (Verified 12/15/20 15:11) emotional issues glimepiride Adverse Reaction (Verified 12/15/20 15:11) Nausea/Vom/Diarrhea metformin HCl [From Glucophage] Adverse Reaction (Verified 12/15/20 15:11) Nausea/Vom/Diarrhea methotrexate Adverse Reaction (Verified 12/15/20 15:11) Unknown Penicillins Adverse Reaction (Verified 12/15/20 15:11) Nausea/Vom/Diarrhea Medications Fluticasone 0.05% [Flonase Nasal [place]] 1 spray NASAL DAILY PRN 09/29/15 [History Confirmed 12/15/20] Cholecalciferol (Vitamin D3) [Vitamin D3] 5,000 unit PO DAILY 08/24/17 [History Confirmed 12/15/20] Rosuvastatin Calcium [Crestor] 20 mg PO QHS 08/24/17 [History Confirmed 12/15/20] lansoprazole 30 mg capsule,delayed release 30 mg PO DAILY cap 06/28/18 [History Confirmed 12/15/20] ascorbate calcium (vitamin C) 500 mg tablet 500 mg PO DAILY 07/10/20 [History Confirmed 12/15/20] estradiol 0.075 mg/24 hr semiweekly transdermal patch 1 patch TRANSDERMAL ONCE ea 07/14/20 [History Confirmed 12/15/20] amlodipine 10 mg tablet 10 mg PO DAILY #90 tab 07/24/20 [Rx Confirmed 12/15/20] triamterene 37.5 mg-hydrochlorothiazide 25 mg tablet 0.5 tab PO QHS #45 tab 08/18/20 [Rx Confirmed 12/15/20] apixaban 5 mg tablet 5 mg PO BID #60 tab 09/24/20 [Rx Confirmed 12/15/20] albuterol sulfate 90 mcg/actuation aerosol inhaler 1 - 2 puff INHALATION Q6H PRN #8.5 g 10/23/20 [Rx Confirmed 12/15/20] methimazole 10 mg tablet 10 mg PO DAILY #92 tab 11/04/20 [Rx Confirmed 12/15/20] liraglutide 0.6 mg/0.1 mL (18 mg/3 mL) subcutaneous pen injector 1.8 mg SC DAILY #9 ml 11/07/20 [Rx Confirmed 12/15/20] acetaminophen 650 mg tablet,extended release 650 mg PO Q8H 11/26/20 [History Confirmed 12/15/20] metoprolol tartrate 100 mg tablet 100 mg PO BID #180 tab 12/10/20 [Rx Confirmed 12/15/20] PFSH Medical History Graves disease (Chronic) Paroxysmal atrial fibrillation (Acute) Hypothyroidism (Chronic) Essential hypertension (Chronic) GERD (gastroesophageal reflux disease) (Acute) Chest pain, unspecified (Chronic) Left carotid artery stenosis (Chronic) HLD (hyperlipidemia) (Chronic) Diabetes mellitus (Chronic) Fatigue (Chronic) Visual disturbance (Chronic) Pulmonary hypertension (Chronic) Multiple thyroid nodules (Acute) Screening for intestinal cancer (Acute) stem cell replacement Lt knee (Resolved) HTN (hypertension) (Inactive) Surgical History S/P thyroid biopsy (Acute ~02/2018) H/O: hysterectomy (Resolved) History of knee replacement (Resolved) Family History Father CAD (coronary artery disease) Ischemic cardiomyopathy Mother Atrial fibrillation CHF (congestive heart failure) Pulmonary fibrosis Sister Myocardial infarction Diabetes Joshua disease COPD (chronic obstructive pulmonary disease) Hypertension Brother Cancer Pancreatic CA Diabetes Atrial fibrillation Social History (Updated 12/15/20 @ 16:[address] Rusty Sawyer MD) Smoking Status: Never smoker alcohol intake: current alcohol intake frequency: holidays/special occasions only Alcohol type: wine substance use type: does not use caffeine: Yes Type: coffee what type of physical activity do you participate in: other details: physical therapy frequency: 1-2 times per week duration: 45-60 minutes/day seatbelt use: always do you feel safe at home: Yes HPI HPI HPI: ANNIKA DOWNEY, is a 70 F who presents to the office today for surgical consultation. She is referred by advanced practice provider Dr. Wilfred Leggett and a written copy my surgical consult recommendations will be returned to her. Dr. Wilfred Leggett's plan is as follows: Problems 1. Hyperthyroidism E05.90 2. Multinodular goiter E04.2 Plan She has hyperthyroidism with positive antibodies. She also has multiple nodules. She is euthyroid on methimazole. Treatment options would be to continue methimazole, use RIVERA if uptake is high enough or surgery. I discussed these options with her in detail. The patient would like to have surgical treatment. She doesn't want to have to worry about following her thyroid nodules in the future. She would like to see Dr. Sawyer The patient states that May 2021 was when she started feeling unwell. She had some tachycardia and shakiness. Dr. Ora Nam evaluated her and detected abnormal thyroid laboratory she had previously been on low-dose levothyroxine. March 2018 her TSH level was 2.78. August 12, 2020 her TSH level was 0.01. Her levothyroxine was ceased. On September 18, 2020 her TSH remained at less than 0.01 and methimazole was started. On October 22, 2020 T4 and T3 normalized. October 14, 2020 she was COVID-19 positive December 04, 2020 Free T3 is normal at 3.2 and T4 free direct normal at 1.05 and TSH less than 0.01 She additionally had problems with tachycardia and atrial fibrillation. She is being managed by Dr. Hernesto Brar. Medications of pertinence include apixaban, metoprolol, rosuvastatin, and methimazole December 10, 2020 she had an echocardiogram. This demonstrates an ejection fraction of 65%. There did not appear to be other clinically significant disease On March 29, 2018 I performed a ultrasound-guided fine-needle aspiration of a right thyroid nodule which on cytology was felt to be consistent with a benign follicular nodule August 18, 2020 [facility] Imaging Services [address] [place] [address] Thyroid MR#: [id number]:[id number] Name: ANNIKA DOWNEY [facility] #:[id number] : 1950 69 From: Delano Alegria MD PCP:Dr. Ora Nam MD Status:REG CLI Study:Thyroid Date of Exam:08/18/20 Exam#[id number] Ordering Dr: Ora Nam MD STUDY: THYROID ULTRASOUND REASON FOR EXAM: Female, 69 years old. NODULES . Elevated free T3 and free T4. TECHNIQUE: Ultrasound evaluation of the thyroid was performed with real-time and static quintero-scale imaging. COMPARISON: Comparison is made with prior study dated 03/06/2018. FINDINGS: RIGHT LOBE: The right lobe of the thyroid gland measures 4.5 cm x 2.2 cm x 1.9 cm. There is a heterogeneous echotexture. Stable dominant solid nodule in the midpole of the right lobe measuring 1.8 cm x 1.5 cm x 1.6 cm. Stable hypoechoic solid nodule measuring 6 mm x 5 mm x 4 mm in the mid lower pole. Intranodular vascularity is seen. LEFT LOBE: The left lobe of the thyroid gland measures 4.3 cm x 1.8 cm x 1.6 cm. There is a heterogeneous echotexture. Stable subcentimeter solid nodules in the left lobe. The largest measures 7 mm x 6 mm x 4 mm. ISTHMUS: The isthmus measures 4.0 mm. The regional lymph nodes are normal. US/Thyroid IMPRESSION: Stable examination. Electronically Signed: Delano Alegria, at 15:05 EDT HPI HPI HPI: ANNIKA DOWNEY, is a 70 F who presents to the office today for ROS General General: No weight change, appetite, fatigue, colon cancer, breast cancer or weakness HEENT HEENT: Yes difficulty swallowing; no eye injury, eye surgery, swollen glands or hoarseness Endo Endocrine: Yes thyroid disease and diabetes mellitus; no thyroid cancer, Hair loss, heat intolerance or cold intolerance Skin Skin: No rash or changing moles Breast Breast: No left breast lump, right breast lump, nipple discharge, breast pain, abnormal mammogram, abnormal US or breast enlargement Musc Musculoskeletal: Yes back problems, arthritis and rheumatoid arthritis; no gout or joint pain Cardio Cardiovascular: Yes murmur and atrial fibrillation; no pacemaker, heart disease, high blood pressure, heart attack, heart stent, palpitations, shortness of breat with exertion or chest pain Psych Psychiatric: No depression, anxiety or hearing voices Resp Respiratory: No shortness of breath, No sleep apnea, No cough, No COPD, No asthma, No emphysema, No wheezing Gastro Gastrointestinal: No abdominal pain, No nausea or vomiting, No diarrhea, Yes constipation, No blood in stool, Yes acid reflux, No hemorrhoids, No ulcers, No gallbladder problem, No black,tarry stools Ed Hematologic: Yes blood thinners, No blood disorders, No bleeding, No anemia, No blood clots Neuro Neurologic: No system reviewed and no additional complaints, except as docu, No as per HPI, No abnormal walking, No abnormal hearing, No abnormal movements, No abnormal speech, No behavioral changes, No burning sensations, No confusion, No seizure-like activity, No unsteadiness, No dizziness, No localized weakness, No frequent falls, No headache(s), No lack of coordination, No loss of vision, No memory loss, No numbness, No other visual disturbances, No radiating pain, No restless legs, No sensory deficit, No fainting, No tingling, No tremor(s), No weakness, No other Exam Const General: cooperative, healthy appearing, comfortable, no acute distress Nutritional Appearance: obese morbidly obese [facility] Head: normal to inspection Eyes General: appearance normal, both eyes and all related structures Neck Other: Neck is supple, thyroid is palpable not overtly enlarged, slight tenderness on the right Carotids are 3+ bilateral Chvostek negative Chest Chest palpation & inspection: normal inspection of the chest Breast Palpation: No nipple discharge Resp Effort & Inspection: normal respiratory effort Auscultation: clear to auscultation bilaterally Cardio Rate: regular rate Rhythm: regular rhythm Heart Sounds: murmur Assessment & Plan Problems 1. Graves disease E05.00 2. Paroxysmal atrial fibrillation I48.0 3. Hyperthyroidism E05.90 Plan I had a discussion with the patient today regarding her total thyroidectomy. We discussed the technique, benefit, risk, alternatives. We did discussed increased technical difficulty with acute thyroid inflammation. We still discussed potential injury to recurrent laryngeal nerve and parathyroids. We discussed the importance of having her absolutely medically maximized prior to attempting surgical intervention. On chart review long ago her thyroid disease became apparent while undergoing a carotid evaluation. We will search for her most recent carotid duplex imaging and if need be update that. The patient is now on anticoagulation for paroxysmal atrial fibrillation. This will definitively need to be held adequately preoperatively to minimize bleeding risk. She has had an opportunity to ask and have questions answered. To add to her complexity she had COVID-19 in mid September. Addendum Most recent carotid duplex exam was from the [facility] July 22, 2015. That suggested 0 to 19% stenosis of the right internal carotid artery and 40 to 59% stenosis of the left internal carotid artery. Subsequently February 23, 2016 Dr. Jorje Cristobal neurology ordered a CTA of the neck and brain. The brain was not remarkable. The right and left carotid were felt to have less than 50% stenosis. We will consider carotid duplex imaging prior to surgical intervention. I appreciate the opportunity of assisting with her surgical care Copy: Dr. Wilfred Leggett and Dr. Ora Sawyer M.D., F.A.C.S. Coding Level of Care Code 82874 Diagnoses Graves disease E05.00 Paroxysmal atrial fibrillation I48.0 ??Atrial fibrillation type: paroxysmal Hyperthyroidism E05.90 I have re-examined the patient. There are no clinical changes since date of exam. Procedure Criteria Procedure Type: Elective COVID Risk Discussion: The surgeon/proceduralist and patient have discussed in detail the risk of exposure to and/or potential harm posed by the COVID-19 virus with having a surgery/procedure at this time versus the risk of delaying the surgery/procedure. It is not possible to know either the risk of delaying the surgery or procedure or chance of getting an infection with perfect accuracy, but a joint decision was made between the patient and the surgeon/proceduralist to proceed at this time with the scheduled surgery/procedure as indicated on the consent form.
[2020-12-24 06:01] LABS: Bedside Glucose 140 mg/dL (70-110)
--- NOTE | 2020-12-24 06:15 | DCINST_ITS ---
Discharge Diet: Light diet - advance as tolerated Additional Instructions: Please see previously provided [facility] thyroid surgery instructions Allergies/Adverse Reactions: Allergies amoxicillin Allergy (Verified 12/24/20 06:05) Unknown duloxetine [From Cymbalta] Allergy (Verified 12/24/20 06:05) neuropathy losartan [Losartan] Allergy (Verified 12/24/20 06:05) Unknown ramipril Allergy (Verified 12/24/20 06:05) Unknown ranitidine HCl [From Zantac] Allergy (Verified 12/24/20 06:05) Unknown meloxicam [From Mobic] Adverse Reaction (Severe, Verified 12/24/20 06:05) Heartburn celecoxib [From Celebrex] Adverse Reaction (Verified 12/24/20 06:05) Upset Stomach cortisone Adverse Reaction (Verified 12/24/20 06:05) emotional issues glimepiride Adverse Reaction (Verified 12/24/20 06:05) Nausea/Vom/Diarrhea metformin HCl [From Glucophage] Adverse Reaction (Verified 12/24/20 06:05) Nausea/Vom/Diarrhea methotrexate Adverse Reaction (Verified 12/24/20 06:05) Unknown Penicillins Adverse Reaction (Verified 12/24/20 06:05) Nausea/Vom/Diarrhea Medications to take at Discharge Fluticasone 0.05% [Flonase Nasal [place]] 1 spray NASAL DAILY PRN 09/29/15 Cholecalciferol (Vitamin D3) [Vitamin D3] 5,000 unit PO DAILY 08/24/17 Rosuvastatin Calcium [Crestor] 20 mg PO QHS 08/24/17 ascorbate calcium (vitamin C) 500 mg tablet 500 mg PO DAILY 07/10/20 estradiol 0.075 mg/24 hr semiweekly transdermal patch 1 patch TRANSDERMAL ONCE ea 07/14/20 amlodipine 10 mg tablet 10 mg PO DAILY #90 tab 07/24/20 triamterene 37.5 mg-hydrochlorothiazide 25 mg tablet 0.5 tab PO QHS #45 tab 08/18/20 apixaban 5 mg tablet 5 mg PO BID #60 tab 09/24/20 albuterol sulfate 90 mcg/actuation aerosol inhaler 1 - 2 puff INHALATION Q6H PRN #8.5 g 10/23/20 liraglutide 0.6 mg/0.1 mL (18 mg/3 mL) subcutaneous pen injector 1.8 mg SC DAILY #9 ml 11/07/20 metoprolol tartrate 100 mg tablet 100 mg PO BID #180 tab 12/10/20 Famotidine [Acid [employer]] 20 mg PO QHS 12/22/20 levothyroxine 112 mcg tablet 112 mcg PO DAILY #90 tab 12/22/20 Primary Care Physician: Ora Nam MD [Primary Care Provider] - Test Results: Test results from this visit will be discussed in further detail at your follow- up appointment, if applicable. Please Follow Up With: Rusty Sawyer MD - [phone] When: Call for appt. May be phone, virtual, or onsite, approx. 10 days
[2020-12-24] MEDS: Lactated Ringers 1,000 ML 100 ML IV ×2 (06:27→08:30)
--- NOTE | 2020-12-24 07:30 | THYROID_PTH ---
PATIENT: ANNIKA DOWNEY [place] [facility] [place][id number] AGE/SX: 70/F ROOM: RE12/24/[address]: Dr. Rusty Sawyer MD : 1950 BED: DIS: 12/24/2020 SPEC #: [id number] RECD: 12/24/20 10:36 STATUS: TISHA RENaldo #: [id number] SUSAN: 12/24/20 07:[address]: Rusty Sawyer DEPT: SURGICAL PATHOLOGY RECD BY: Jazmine Cruz ENTERED: 12/24/20 11:37 SP TYPE: THYROID OTHR DR: Dr. 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 See comment. Multinodular goiter. Mild chronic inflammation. SJ:armaan 01/02/2021 COMMENT Immunohistochemistry ([id number]) supports the above diagnosis. The lesion consistent with NIFTP is present in the left lobe, superior portion and completely excised and <0.1 cm away from anterior and posterior margins (block 8). The rest of the specimen shows multiple nodules with extensive Hurthle cell features. The detached pieces of tissue also show nodules with Hurthle cell features. Please also make reference to previous specimen, [id number], Fine needle aspiration, right thyroid nodule, smears with diagnosis of consistent with benign follicular nodule. MICROSCOPIC DESCRIPTION Slides are reviewed. GROSS DESCRIPTION Received in fixative is one container labeled with the patient's name and designated thyroid. The specimen consists of a total thyroidectomy specimen weighing 14.1 gm. The specimen is oriented by a suture in the anterior-superior aspect of the right lobe. The right lobe measures 3.5 x 3 x 2 cm and the left lobe measures 3.5 x 2.5 x 1.5 cm. The isthmus measures 0.5 x 1 x 0.5 cm. No external parathyroid tissue is identified. The external surface is inked as follows: posterior surface right lobe, left lobe and isthmus - black, anterior surface right lobe - blue, anterior surface left lobe - green, anterior surface isthmus- yellow. Sections of the right lobe reveal a well-defined nodule occupying most of the thyroid lobe measuring 2 x 1.5 x 1.5 cm. Most of the nodule has solid cut surfaces. It is focally hemorrhagic. Sections of the left lobe reveal a calcified nodule in the upper lobe measuring 0.6 cm in greatest dimension and multiple small variable sized nodules measuring 0.2 to 0.5 cm in greatest dimension are noted throughout the lobe. Sections of the isthmus do not reveal any mass lesion. Also in the container are two detached pieces of soft tissue, measuring 0.7 x 0.9 x 0.5 cm and 0.5 cm in greatest dimension). The largest piece is bisected. A smaller piece is inked. The entire specimen is submitted in 14 cassettes as follows: 1??isthmus, 2-7 - right lobe (2 containing most superior portion and 7 containing most inferior portion), 813 - left lobe (8 containing most superior portion and 13 containing most inferior portion), 14 - two smaller pieces of tissue. Cassette 8 will be submitted after decalcification. / AMNA:armaan 12/25/20 TC:5 CPT: 09602, [id number]
[2020-12-24] MEDS: Bupivacaine Mpf 0.5% 30 ML VIAL (09:15)
--- NOTE | 2020-12-24 09:38 | PCM.OPRPT ---
Problem List (1) Graves disease Status: Chronic Report of Operation Date of Procedure: 12/24/20 Pre-Operative Diagnosis: Graves' disease Post-Operative Diagnosis: Same Surgery/Procedure Performed:: Total thyroidectomy Description of Surgical Findings:: Timeout and informed consent was obtained. 70-year-old female was taken to the operating placement table underwent general endotracheal intubation anesthesia. 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 She states this was related to previous thyroidectomy though she is unsure. At the intubation there appeared to be some fat fatty fibrous fullness around the cords. Neck was gently extended. Prepped with chlorhexidine. A transverse suprasternal incision was created. Platysmal flaps were raised. Strap muscles were incised vertically. Tedious sharp and blunt dissection was used to identify the left lobe of the thyroid. As anticipated there was a significant amount of inflammatory response and vascularity. With careful mosquito dissection and harmonic scalpel dissection the gland was carefully elevated. The inferior parathyroid and then subsequently superior parathyroid cleanly identified and preserved. The course of the recurrent ventral nerve identified. The superior and inferior poles were secured, the scalpel was used for hemostasis the gland was rotated anteriorly the gland was quite stuck to the ligament of Everett and this dissection was slow and tedious. Got good clearance. Hemostasis was intact. Similar process was then performed on the right lobe of the thyroid which was slightly larger than the left. There seemed to be even more inflammatory changes on the right. Again the inferior parathyroid on the right and superior parathyroid on the right identified. The course of the recurrent laryngeal nerve identified and preserved. Superior and inferior poles again secured. This was done with harmonic scalpel dissection. At the completion the entire gland was removed. A suture was placed in the anterior superior aspect of the right lobe. The neck was gently irrigated. The fibular was placed on each side of the neck. Hemostasis appeared to be intact. I had partially transected strap muscles horizontally and this was repaired. Strap muscles and approximated midline with 3-0 Vicryl. Platysmal flaps approximated with the same. Subdermal edges approximated interrupted 5-0 Vicryl subdermal stitches. The periincisional erythema excised with 10 cc of 0.5% Marcaine. Dermabond and Telfa and tape dressing applied. Sponge and instrument and needle counts were reported to the surgeon to be correct. Blood loss minimal. Specimen total thyroid. Drains none. Blood loss minimal. Rusty Sawyer M.D., F.A.C.S.
[2020-12-24 10:01] LABS: Bedside Glucose 156 mg/dL (70-110)
--- NOTE | 2020-12-24 11:26 | SUR.PHASEI ---
ABLE TO SWALLOW AND SPEAK CLEARLY. SCOPOLAMINE PATCH REMOVED IN O.R. AT [address] HOLLINGSWORTH INSTRUCTION PER SUKHWINDER MCINTOSH CRNA.
[2020-12-24] MEDS: HYDROcodone Bitartrate/Apap 5/325 Tablet PO (13:06)
--- NOTE | 2020-12-24 14:56 | SUR.PHASEII ---
PATIENT STOPPED AT THE NURSES STATION ON HER WAY BEING ESCORTED VIA WHEELCHAIR. PATIENT NOTICED THAT THE PATCH BEHIND HER EAR WAS MISSING. PATIENT REQUESTED AN ORDER BE CALLED IN THE [facility] IN [place] FOR AN ANTIEMETIC JUST IN CASE. AT APPROXIMATELY 1430, JUSTO HARDEN CALLED FROM DR HOLLINGSWORTH'S OFFICE TO SAY THAT HE CHANGED HIS MIND AND WOULD LIKE TO HAVE THE PATIENT RESTART HER ELIQUIS ON 12/27/20. JUSTO HARDEN WILL CALL THE PATIENT AND EXPLAIN THE CHANGE IN HER ELIQUIS START DATE. JUSTO WILL ALSO CALL ON ORDER FOR AN ANTIEMETIC TO [facility] IN [place]
== END 2020-12-24 14:20 | disposition home or self-care (01) ==
LOC: SDC 05:21 → AC 05:21
PROVIDERS: PCP Internal Medicine; Referring Provider Surgery; Visit Provider Surgery
PROC: (CPT 60240; principal; 2020-12-24 07:15)
DX: E05.20 Thyrotoxicosis with toxic multinodular goiter without thyrotoxic crisis or storm (principal); E06.5 Other chronic thyroiditis; I27.20 Pulmonary hypertension, unspecified; I48.0 Paroxysmal atrial fibrillation; I10 Essential (primary) hypertension; E11.9 Type 2 diabetes mellitus without complications; E78.5 Hyperlipidemia, unspecified; J45.909 Unspecified asthma, uncomplicated; K21.9 Gastro-esophageal reflux disease without esophagitis; E66.01 Morbid (severe) obesity due to excess calories; Z68.41 Body mass index [BMI] 40.0-44.9, adult; Z78.0 Asymptomatic menopausal state; Z79.01 Long term (current) use of anticoagulants; Z79.899 Other long term (current) drug therapy; Z86.16 Personal history of COVID-19; Z86.73 Personal history of transient ischemic attack (TIA), and cerebral infarction without residual deficits
CPT/HCPCS: 00320; 60240; 82962; 88307; 88341; 88342; J7120; J2405

== ENCOUNTER → 2021-01-27 11:50 | Outpatient (CLI) | payer MEDICARE, OTHER, SELFPAY ==
[2021-01-12 13:38] VITALS: BMI 43.9
[2021-01-21 09:04] VITALS: BMI 43.9
== END ==
PROVIDERS: PCP Internal Medicine; Referring Provider Nurse Practitioner Family; Visit Provider Nurse Practitioner Family
DX: I48.0 Paroxysmal atrial fibrillation (principal); I10 Essential (primary) hypertension
CPT/HCPCS: 93225; 93226

== ENCOUNTER → 2021-03-05 08:52 | Outpatient (CLI) | payer MEDICARE, OTHER, SELFPAY ==
[2021-01-21 09:04] VITALS: BMI 43.9
[2021-03-05 12:56] LABS: T4 Free Direct 0.88 ng/dL (0.76-1.46)
[2021-03-06 20:46] LABS: Anti-Thyroglobulin AB < 1.0 IU/mL (0.0-0.9); Thyroglobulin, Serum Qt. 1.4 ng/mL (1.5-38.5)
[2021-03-06 20:47] LABS: SAR-COV-2 IGM ANTIBODY Negative (Negative)
== END ==
PROVIDERS: PCP Internal Medicine; Referring Provider Internal Medicine Endocrinology, Diabetes & Metabolism; Visit Provider Internal Medicine Endocrinology, Diabetes & Metabolism
DX: C73 Malignant neoplasm of thyroid gland (principal); E03.9 Hypothyroidism, unspecified; Z86.16 Personal history of COVID-19
CPT/HCPCS: 36415; 84432; 84439; 84443; 86769; 86800

== ENCOUNTER → 2021-04-30 14:46 | Outpatient (CLI) | payer MEDICARE, OTHER, SELFPAY ==
[2021-01-21 09:04] VITALS: BMI 43.9
[2021-04-30 17:10] LABS: T4 Free Direct 1.14 ng/dL (0.76-1.46); Thyroid Stim Hormone (TSH) 9.55 uIU/mL (0.358-3.74)
== END ==
PROVIDERS: PCP Internal Medicine; Referring Provider Internal Medicine Endocrinology, Diabetes & Metabolism; Visit Provider Internal Medicine Endocrinology, Diabetes & Metabolism
DX: E89.0 Postprocedural hypothyroidism (principal)
CPT/HCPCS: 36415; 84439; 84443

== ENCOUNTER → 2021-05-12 | Outpatient (CLI) | payer MEDICARE, OTHER, SELFPAY ==
[2021-05-12 12:54] VITALS: BMI 43.9
[2021-05-12 16:52] LABS: Mucous, Urine 0 SEEN /hpf (<or=2+); Squamous Epithelial Cells - UA 0 SEEN /hpf (5-10)
[2021-05-12 17:12] LABS: Color, Urine Yellow (Yellow); Glucose, Dipstick Normal (Normal); Ketone-Dipstick Negative (Negative); Leukocyte Esterase-Dipstick 500 /ul (Negative); Nitrite-Dipstick Negative (Negative); Occult Blood-Urine Negative /ul (Negative); Protein-Dipstick Negative (Negative); Urine Bilirubin Dipstick Negative (Negative); Urine Clarity Clear (Clear); Urine Urobilinogen Normal (Normal)
[2021-05-12 17:26] LABS: Bacteria RARE /hpf (None Seen); Red Blood Cells-Urine 0-5 SEEN /hpf (0-5); White Blood Cells 10-25 SEEN /hpf (0-5)
== END | disposition home or self-care (01) ==
LOC: LABSPEC 16:17
PROVIDERS: PCP Internal Medicine; Visit Provider Physician Assistant Surgical
DX: N39.0 Urinary tract infection, site not specified (principal)
CPT/HCPCS: 81001; 87086; 87088; 87186

== ENCOUNTER → 2021-06-03 08:26 | Outpatient (CLI) | payer MEDICARE, OTHER, SELFPAY ==
[2021-05-20 13:57] VITALS: BMI 43.9
--- NOTE | 2021-06-03 08:28 | CT_ITS ---
STUDY: CT ABDOMEN AND PELVIS WITH AND WITHOUT CONTRAST REASON FOR EXAM: Female, 70 years old. right flank pain, hematuria, ruq ab. pain RADIATION DOSAGE (If Supplied By Facility): CTDIvol = ( ) mGy, DLP = ( ) mGycm TECHNIQUE: Transaxial images were obtained from the dome of the diaphragm to the symphysis pubis without oral contrast. IV 100mL Isovue-300 was administered. Sagittal and coronal images were reconstructed. Individualized dose optimization techniques were used for this CT. COMPARISON: CT abdomen and pelvis 07/23/2014. FINDINGS: The visualized lung bases are unremarkable. The visualized portions of the heart are within normal limits. There is mitral annular calcifications. There is decreased attenuation of the liver consistent with steatosis. Normal gallbladder and extrahepatic biliary system. Normal spleen. Normal pancreas. Normal bilateral adrenal glands. Normal right kidney. Normal left kidney. No Hydronephrosis or renal stones. Normal visualized stomach. Normal small intestine. Normal colon. There is non-visualization of the appendix. Mild aortic atherosclerotic disease. Normal inferior vena cava. Normal retroperitoneum. Normal urinary bladder. There is a small umbilical hernia containing fat. Normal osseous structures. CT/CT Abd/Pelvis W/WO Contrast IMPRESSION: No acute abdominal or pelvic pathology. No hydronephrosis or renal stones. Hepatic steatosis. Electronically Signed: Carlita Morrison MD at 14:28 EDT Tel , Service support ,
[2021-06-03 08:41] LABS: CREATININE FINGERSTICK 0.6 mg/dL (0.55-1.02); EGFR FINGERSTICK > 60.0000 mL/min (>60)
== END ==
PROVIDERS: PCP Internal Medicine; Referring Provider Internal Medicine; Visit Provider Internal Medicine
DX: R10.9 Unspecified abdominal pain (principal); R31.9 Hematuria, unspecified
CPT/HCPCS: 74178; Q9967

== ENCOUNTER → 2021-06-22 13:01 | Outpatient (CLI) | payer MEDICARE, OTHER, SELFPAY ==
[2021-01-21 09:04] VITALS: BMI 43.9
--- NOTE | 2021-06-22 13:03 | CDU_ITS ---
Reason For Study: Bilateral carotid stenosis Rt. Velocities/BP Lt. Velocities/BP Prox CCA 115.2/20 cm/sec. Prox CCA 115.6/18.8 cm/sec. Mid CCA 98.2/14.7 cm/sec. Mid CCA 99.2/20.6 cm/sec. Dist CCA 93/18.6 cm/sec. Dist CCA 97.4/18.8 cm/sec. Prox ICA 89.1/22.6 cm/sec. Prox ICA 246.6/46.2 cm/sec. Mid ICA 90.4/21.3 cm/sec. Mid ICA 147.7/27 cm/sec. Dist ICA 90.4/23.9 cm/sec. Dist ICA 80.9/18.8 cm/sec. Rt. ICA/CCA = 0.92. Lt. ICA/CCA = 2.49. Prox ECA 136/13.4 cm/sec. Prox ECA 200.2/11.1 cm/sec. Rt. Vert. 44.3/9.1 cm/sec. Lt. Vert. 54.2/12.4 cm/sec. Right Extracranial There is intimal thickening but no significant atherosclerotic plaque noted in the right common carotid artery. There is heterogeneous, irregular atherosclerotic plaque noted in the right internal carotid artery. There is intimal thickening but no significant atherosclerotic plaque noted in the right external carotid artery. Antegrade flow is noted in the right vertebral artery. Left Extracranial There is homogeneous, smooth atherosclerotic plaque noted in the left common carotid artery. There is heterogeneous, irregular atherosclerotic plaque noted in the left internal carotid artery. There is heterogeneous, irregular atherosclerotic plaque noted in the left external carotid artery. Antegrade flow is noted in the left vertebral artery. Procedure Carotid Duplex 59054. This is a Carotid Duplex examination using B-mode, color flow and specral Doppler. Exam performed in department. VL/Carotid Duplex Ultrasound Interpretation Summary Irregular plaque in the proximal right internal carotid artery with less than 5 0% stenosis Less than 50% stenosis right external carotid artery Irregular calcific plaque distal left common carotid and proximal left internal carotid artery Greater than 70% stenosis left internal carotid artery Greater than 50% stenosis left external carotid artery Patent antegrade bilateral vertebrals No progression of stenosis bilateral internal carotid arteries. Mild progressio n of the left external carotid artery from the previous examination of December 23, 2020 Ordering Physician: Rusty Sawyer Referring Physician: Ora Nam Performed By: Kitty Rolle RVT
== END ==
PROVIDERS: PCP Internal Medicine; Referring Provider Surgery; Visit Provider Surgery
DX: I65.23 Occlusion and stenosis of bilateral carotid arteries (principal); R42 Dizziness and giddiness
CPT/HCPCS: 93880

== ENCOUNTER → 2021-06-23 | Outpatient (CLI) | payer MEDICARE, OTHER, SELFPAY ==
--- NOTE | 2021-06-23 16:00 | CYSPIN_PTH ---
PATIENT: ANNIKA DOWNEY LOC: [facility] U#:[id number] AGE/SX: 70/F ROOM: RE06/23/[address]: Dr. Elen Alonzo MD : 1950 BED: DIS: 06/23/2021 SPEC #: [id number] RECD: 06/24/21 09:19 STATUS: TISHA RENaldo #: [id number] SUSAN: 06/23/21 16:[address]: Elen Alonzo DEPT: CYTOLOGY RECD BY: Jazmine Cruz ENTERED: 06/24/21 09:19 SP TYPE: CYSPIN FL OTHR DR: Dr. Ora Nam MD Tissues: Urine Procedures: Pap Stain (control) Special Stain Group II Cytospin Fluid HEADER OPERATION: Not noted PRE-OP DIAGNOSIS: Gross hematuria TISSUE SUBMITTED: Urine for cytology DIAGNOSIS CYTOLOGY Urine for cytology (cytospin): Negative for malignant cells. See comment. AMNA:armaan 06/25/2021 COMMENT The specimen is paucicellular and consists predominantly of squamous cells. A few organisms consistent with bacteria are also noted. Clinical correlation and appropriate follow up are necessary. CYTOLOGY STUDY Slides are reviewed. CYTOLOGY GROSS Received is 60 ml of yellow cloudy fluid labeled with the patient's name and and designated per the requisition as urine. Submitted for cytology preparation. / armaan 06/24/2021 TC:5 CPT: 25123
[2021-06-23 18:56] LABS: Cytology, Body Fluid / CSF SEE PATHOLOGY REPORT
== END | disposition home or self-care (01) ==
PROVIDERS: PCP Internal Medicine; Visit Provider Urology
DX: R31.0 Gross hematuria (principal)
CPT/HCPCS: 88108; 88313

== ENCOUNTER → 2021-07-23 10:33 | Outpatient (CLI) | payer MEDICARE, OTHER, SELFPAY ==
[2021-07-23 12:59] LABS: T4 Free Direct 1.48 ng/dL (0.76-1.46); Thyroid Stim Hormone (TSH) 0.18 uIU/mL (0.358-3.74)
[2021-08-05 14:33] LABS: Anti-Thyroglobulin AB 1.3 IU/mL (0.0-0.9); Thyroglobulin RIA < 2.0 ng/mL (.)
== END ==
PROVIDERS: PCP Internal Medicine; Referring Provider Nurse Practitioner Family; Visit Provider Nurse Practitioner Family
DX: E04.2 Nontoxic multinodular goiter (principal); E89.0 Postprocedural hypothyroidism
CPT/HCPCS: 36415; 84432; 84439; 84443; 86800

== ENCOUNTER → 2021-08-28 11:52 | Outpatient (CLI) | payer MEDICARE, OTHER, SELFPAY ==
[2021-08-28 15:03] LABS: Absolute Lymphocyte Count 2.87 X10^3/uL (0.83-4.51); Absolute Neutrophil Count 4.4 X10^3/uL (2.0-7.7); Basophil# 0.07 X10^3/uL; Basophil% 0.8 % (0-1); Eosinophil# 0.24 X10^3/uL; Eosinophils% 2.9 % (0-5); Hematocrit 40.8 % (37-47); Hemoglobin 13.7 g/dL (12.0-15.0); Lymphocyte # 2.87 X10^3/ul (0.83-4.51); Lymphocyte % 34.3 % (19-41); Mean Corp Hgb Conc 33.6 g/dL (32-36); Mean Corpuscular Hgb 29.5 pg (27.0-32.0); Mean Corpuscular Volume 87.7 fL (81-99); Mean Platelet Vol. 9.6 fl (6.2-12.0); Monocyte# 0.72 X10^3/uL; Monocyte% 8.6 % (0-10); NRBC Flagged by Analyzer 0 % (0-5); Neutrophil # 4.43 X10^3/uL (2.7-7.7); Platelet Count 302 K/mm3 (150-450); RBC Distribution Width CV 13.4 % (11.6-14.6); RBC Distribution Width SD 42.7 fl (35.1-43.9); Red Blood Count 4.65 M/mm3 (4.2-5.4); White Blood Count 8.4 K/mm3 (4.4-11.0)
[2021-08-28 15:24] LABS: ALB/GLOB Ratio 0.8 RATIO (0.9-2.4); AST(SGOT) 17 U/L (15-37); Alanine Aminotransfer ALT/SGPT 28 U/L (13-56); Albumin, Serum 3.6 g/dL (3.2-5.0); Alkaline Phosphatase 87 U/L (45-117); Anion Gap 7 (5-15); BUN 19 mg/dL (7-18); BUN/Creat Ratio 24.6 RATIO (10-20); Calcium,Total 9.3 mg/dL (8.5-10.1); Chloride 102 mmol/L (98-107); Cholesterol 255 mg/dL (200); Creatinine, Serum 0.77 mg/dL (0.55-1.02); EST Glomerular Filtration Rate 79 mL/min (>60); Est Glom Filt Rate - Afr Amer 95 mL/min (>60); Globulin 4.4 g/dL (2.2-4.2); Glucose 121 mg/dL (74-106); High Density Lipoprotein 58 mg/dL; Potassium 3.9 mmol/L (3.5-5.1); Sodium Level 138 mmol/L (136-145); Triglycerides 148 mg/dL; Very Low Density Lipoprotein 30 mg/dL (5-40)
[2021-08-28 15:30] LABS: Vitamin D,25 Hydroxy 63.9 ng/mL
== END ==
PROVIDERS: PCP Internal Medicine; Referring Provider Internal Medicine; Visit Provider Internal Medicine
DX: C73 Malignant neoplasm of thyroid gland (principal); E11.65 Type 2 diabetes mellitus with hyperglycemia; I10 Essential (primary) hypertension; E55.9 Vitamin D deficiency, unspecified; E66.01 Morbid (severe) obesity due to excess calories; Z68.42 Body mass index [BMI] 45.0-49.9, adult
CPT/HCPCS: 36415; 80053; 80061; 82306; 85025

== ENCOUNTER → 2021-09-07 09:28 | Outpatient (CLI) | payer MEDICARE, OTHER, SELFPAY ==
--- NOTE | 2021-09-07 09:40 | RAD_ITS ---
STUDY: X-RAY - ESOPHAGUS (BARIUM SWALLOW) WITH FLUOROSCOPY REASON FOR EXAM: Female, 71 years old. REFLUX TECHNIQUE: 13 view(s) of the esophagus were obtained following swallowing of barium. FLUOROSCOPY TIME (if supplied): (32 seconds) minutes/seconds COMPARISON: None. FINDINGS: There is no demonstrated esophageal foreign body. There is no demonstrated stricture or mucosal abnormality. Normal gastroesophageal junction, without a demonstrated hiatal hernia. The patient ingested a 12 mm tablet of barium without any difficulty. There is atherosclerotic tortuosity of the aortic arch and descending thoracic aorta. Normal visualized pulmonary parenchyma. There are diffuse degenerative changes of the visualized thoracic spine. RAD/Esophagus Dual Contrast IMPRESSION: Normal plain film x-ray examination (barium swallow) of the esophagus. Electronically Signed: Delano Alegria MD at 10:05 EST , Service support ,
== END ==
PROVIDERS: PCP Internal Medicine; Visit Provider Otolaryngology
DX: K21.9 Gastro-esophageal reflux disease without esophagitis (principal)
CPT/HCPCS: 74221

== ENCOUNTER 2021-11-05 14:42 | Outpatient (CLI) | payer MEDICARE, OTHER, SELFPAY ==
[2021-11-05 17:38] LABS: T4 Free Direct 1.32 ng/dL (0.76-1.46); Thyroid Stim Hormone (TSH) 2.06 uIU/mL (0.358-3.74)
[2021-11-14 16:21] LABS: Anti-Thyroglobulin AB 1.6 IU/mL (0.0-0.9); Thyroglobulin RIA < 2.0 ng/mL (.)
== END 2021-11-05 23:59 | disposition short-term general hospital (02) ==
LOC: BIMLAB 14:44
PROVIDERS: PCP Internal Medicine; Referring Provider Internal Medicine Endocrinology, Diabetes & Metabolism; Visit Provider Internal Medicine Endocrinology, Diabetes & Metabolism
DX: C73 Malignant neoplasm of thyroid gland (principal); E89.0 Postprocedural hypothyroidism
CPT/HCPCS: 36415; 84432; 84439; 84443; 86800

== ENCOUNTER 2021-12-01 15:21 | Outpatient (CLI) | payer MEDICARE, OTHER, SELFPAY ==
[2021-12-01 18:19] LABS: Anion Gap 7 (5-15); BUN 34 mg/dL (7-18); Calcium,Total 9.4 mg/dL (8.5-10.1); Chloride 99 mmol/L (98-107); Creatinine, Serum 0.92 mg/dL (0.55-1.02); EST Glomerular Filtration Rate 64 mL/min (>60); Est Glom Filt Rate - Afr Amer 78 mL/min (>60); Glucose 142 mg/dL (74-106); Potassium 3.5 mmol/L (3.5-5.1); Sodium Level 135 mmol/L (136-145)
== END 2021-12-01 23:59 | disposition short-term general hospital (02) ==
LOC: MTLAB 15:23
PROVIDERS: PCP Internal Medicine; Referring Provider Specialist; Visit Provider Specialist
DX: Z01.818 Encounter for other preprocedural examination (principal)
CPT/HCPCS: 36415; 80048

== ENCOUNTER → 2022-05-27 | Outpatient (CLI) | payer MEDICARE, OTHER, SELFPAY ==
[2022-05-27 12:12] LABS: Absolute Lymphocyte Count 2.62 X10^3/uL (0.83-4.51); Absolute Neutrophil Count 4.9 X10^3/uL (2.0-7.7); Basophil# 0.06 X10^3/uL; Basophil% 0.7 % (0-1); Eosinophils% 3.5 % (0-5); Hematocrit 40.4 % (37-47); Lymphocyte # 2.62 X10^3/ul (0.83-4.51); Lymphocyte % 30.3 % (19-41); Mean Corp Hgb Conc 34.7 g/dL (32-36); Mean Corpuscular Hgb 31.3 pg (27.0-32.0); Mean Corpuscular Volume 90.4 fL (81-99); Mean Platelet Vol. 9.9 fl (6.2-12.0); Monocyte# 0.75 X10^3/uL; Monocyte% 8.7 % (0-10); NRBC Flagged by Analyzer 0 % (0-5); Neutrophil % 56.5 % (47-70); Platelet Count 276 K/mm3 (150-450); RBC Distribution Width CV 13.2 % (11.6-14.6); RBC Distribution Width SD 43.2 fl (35.1-43.9); Red Blood Count 4.47 M/mm3 (4.2-5.4); White Blood Count 8.7 K/mm3 (4.4-11.0)
[2022-05-27 12:44] LABS: Vitamin D,25 Hydroxy 65.2 ng/mL
[2022-05-27 13:01] LABS: ALB/GLOB Ratio 0.9 RATIO (0.9-2.4); AST(SGOT) 15 U/L (15-37); Alanine Aminotransfer ALT/SGPT 27 U/L (13-56); Albumin, Serum 3.5 g/dL (3.2-5.0); Alkaline Phosphatase 74 U/L (45-117); Anion Gap 7 (5-15); BUN 21 mg/dL (7-18); BUN/Creat Ratio 29.5 RATIO (10-20); Calcium,Total 9.1 mg/dL (8.5-10.1); Chloride 102 mmol/L (98-107); Cholesterol 221 mg/dL (200); Creatinine, Serum 0.71 mg/dL (0.55-1.02); EST Glomerular Filtration Rate 86 mL/min (>60); Est Glom Filt Rate - Afr Amer 104 mL/min (>60); Free T3 1.8 pg/mL (2.18-3.98); Globulin 4.1 g/dL (2.2-4.2); Glucose 133 mg/dL (74-106); High Density Lipoprotein 50 mg/dL; Magnesium 2.2 mg/dL (1.6-2.6); Potassium 3.8 mmol/L (3.5-5.1); Protein, Total 7.6 g/dL (6.4-8.2); Sodium Level 138 mmol/L (136-145); T4 Free Direct 1.18 ng/dL (0.76-1.46); Triglycerides 192 mg/dL; Very Low Density Lipoprotein 38 mg/dL (5-40)
[2022-05-27 14:04] LABS: Hemoglobin A1c 6.4 % (3.8-5.6)
== END | disposition home or self-care (01) ==
LOC: MTLAB 10:00
PROVIDERS: PCP Internal Medicine; Referring Provider Internal Medicine; Visit Provider Internal Medicine
DX: E66.01 Morbid (severe) obesity due to excess calories (principal); E11.65 Type 2 diabetes mellitus with hyperglycemia; Z68.42 Body mass index [BMI] 45.0-49.9, adult; E05.00 Thyrotoxicosis with diffuse goiter without thyrotoxic crisis or storm; I10 Essential (primary) hypertension; R53.83 Other fatigue
CPT/HCPCS: 36415; 80053; 80061; 82306; 83036; 83735; 84439; 84443; 84481; 85025

== ENCOUNTER → 2022-06-09 | Outpatient (CLI) | payer MEDICARE, OTHER, SELFPAY ==
--- NOTE | 2022-06-09 08:03 | CDU_ITS ---
Reason For Study: CAROTID STENOSIS Rt. Velocities/BP Lt. Velocities/BP Prox CCA 100.3/18.1 cm/sec. Prox CCA 105.2/28.5 cm/sec. Mid CCA 124.0/19.9 cm/sec. Mid CCA 107.0/26.7 cm/sec. Dist CCA 68.7/15.8 cm/sec. Dist CCA 97.9/19.4 cm/sec. Prox ICA 116.1/26.7 cm/sec. Prox ICA 263.7/66.6 cm/sec. Mid ICA 97.9/19.4 cm/sec. Mid ICA 179.7/32.7 cm/sec. Dist ICA 83.4/20.8 cm/sec. Dist ICA 184.1/30.5 cm/sec. Rt. ICA/CCA = 116.1/124.0=0.9. Lt. ICA/CCA = 263.7/107.0=2.5. Prox ECA 119.8/8.4 cm/sec. Prox ECA 121.6/4.7 cm/sec. Rt. Vert. 64.7/14.2 cm/sec. Lt. Vert. 62.8/21.1 cm/sec. Right Extracranial There is intimal thickening but no significant atherosclerotic plaque noted in the right common carotid artery. There is heterogeneous, irregular atherosclerotic plaque noted in the right internal carotid artery. There is no significant atherosclerotic plaque noted in the right external carotid artery. Antegrade flow is noted in the right vertebral artery. Left Extracranial There is intimal thickening but no significant atherosclerotic plaque noted in the left common carotid artery. There is heterogeneous, irregular atherosclerotic plaque noted in the left internal carotid artery. There is heterogeneous, irregular atherosclerotic plaque noted in the left external carotid artery. Antegrade flow is noted in the left vertebral artery. Procedure Carotid Duplex 79802. Exam performed in department. VL/Carotid Duplex Ultrasound Interpretation Summary Minimal plaque at the proximal right internal carotid artery with less than 50% stenosis Less than 50% stenosis right external carotid artery Irregular calcific plaque at the proximal left internal carotid artery with gre ater than 70% stenosis. Less than 50% stenosis left external carotid artery Patent and antegrade vertebral arteries bilaterally No change from the previous examination of June 22, 2021 Ordering Physician: Rusty Sawyer Referring Physician: Ora Nam Performed By: Kelle Chavira, CATALINA, RVT
== END | disposition home or self-care (01) ==
LOC: CVS 07:57
PROVIDERS: PCP Internal Medicine; Visit Provider Surgery
DX: I65.22 Occlusion and stenosis of left carotid artery (principal)
CPT/HCPCS: 93880

== ENCOUNTER → 2022-06-17 | Outpatient (CLI) | payer MEDICARE, OTHER, SELFPAY ==
--- NOTE | 2022-06-17 06:56 | CT_ITS ---
STUDY: CTA NECK WITH CONTRAST REASON FOR EXAM: Female, 71 years old. Carotid stenosis RADIATION DOSAGE (If Supplied By Facility): CTDIvol = ( 19.49 ) mGy, DLP = ( 589.29 ) mGycm TECHNIQUE: CT angiography with multi-detector data acquisition was performed from the aortic arch to the skull base following intravenous administration of IV 100mL Isovue-370. MIP images were reconstructed from the axial data set. Post-processing of the angiographic images was performed, with multiplanar reformation and 3D reconstruction. Individualized dose optimization techniques were used for this CT. COMPARISON: Comparison is made with prior examination dated 02/23/2016. FINDINGS: AORTIC ARCH: There is atherosclerotic calcific plaque formation of the aortic arch and great vessels arising from the aortic arch, without a hemodynamically significant stenosis. There is a normal origin of the brachiocephalic, left common carotid, and left subclavian arteries. Atherosclerotic plaque formation of the origin of the left subclavian artery. RIGHT CAROTID ARTERIES: Normal right common carotid artery (CCA). Normal right common carotid bulb. There is mild atherosclerotic plaque formation of the origin of the right internal carotid artery with less than 50% cross sectional diameter stenosis. Normal visualized cervical portion of the right internal carotid artery. Normal origin of the right external carotid artery (ECA). LEFT CAROTID ARTERIES: Normal left common carotid artery (CCA). Normal left common carotid bulb. There is extensive atherosclerotic plaque formation of the origin of the left internal carotid artery with an estimated stenosis of greater than 70%. Normal visualized cervical portion of the left internal carotid artery. Normal origin of the left external carotid artery (ECA). VERTEBRAL ARTERIES: Normal bilateral vertebral arteries. CT/CTA Neck W/WO Contrast IMPRESSION: High-grade stenosis at the origin of the left internal carotid arteries caused by atherosclerotic calcific plaques. Less than 50% narrowing at the origin of the right internal carotid artery. Electronically Signed: Delano Alegria MD at 11:04 EDT ,
== END | disposition home or self-care (01) ==
LOC: CT 06:56
PROVIDERS: PCP Internal Medicine; Referring Provider Surgery; Visit Provider Surgery
DX: I65.23 Occlusion and stenosis of bilateral carotid arteries (principal)
CPT/HCPCS: 70498; Q9967

== ENCOUNTER → 2022-07-12 | Outpatient (CLI) | payer MEDICARE, OTHER, SELFPAY ==
[2022-07-12 12:30] LABS: Erythrocyte Sedimentation Rate 23 mm/hr (0-30)
[2022-07-12 12:33] LABS: Absolute Lymphocyte Count 2.34 X10^3/uL (0.83-4.51); Absolute Neutrophil Count 3.9 X10^3/uL (2.0-7.7); Basophil# 0.05 X10^3/uL; Basophil% 0.7 % (0-1); Eosinophil# 0.28 X10^3/uL; Eosinophils% 3.8 % (0-5); Hemoglobin 12.9 g/dL (12.0-15.0); Lymphocyte # 2.34 X10^3/ul (0.83-4.51); Lymphocyte % 31.5 % (19-41); Mean Corp Hgb Conc 33.1 g/dL (32-36); Mean Corpuscular Hgb 30.2 pg (27.0-32.0); Mean Corpuscular Volume 91.3 fL (81-99); Monocyte# 0.78 X10^3/uL; Monocyte% 10.5 % (0-10); NRBC Flagged by Analyzer 0 % (0-5); Neutrophil # 3.93 X10^3/uL (2.7-7.7); Platelet Count 259 K/mm3 (150-450); RBC Distribution Width SD 42.9 fl (35.1-43.9); Red Blood Count 4.27 M/mm3 (4.2-5.4); White Blood Count 7.4 K/mm3 (4.4-11.0)
[2022-07-12 12:54] LABS: D-Dimer Quantitative (DVT/PE) 0.59 FEU/ug/m (0.27-0.49)
[2022-07-12 12:57] LABS: ALB/GLOB Ratio 0.9 RATIO (0.9-2.4); AST(SGOT) 16 U/L (15-37); Alanine Aminotransfer ALT/SGPT 27 U/L (13-56); Albumin, Serum 3.7 g/dL (3.2-5.0); Alkaline Phosphatase 68 U/L (45-117); Anion Gap 8 (5-15); BUN 24 mg/dL (7-18); BUN/Creat Ratio 34.5 RATIO (10-20); Calcium,Total 9.4 mg/dL (8.5-10.1); Chloride 102 mmol/L (98-107); EST Glomerular Filtration Rate 88 mL/min (>60); Est Glom Filt Rate - Afr Amer 107 mL/min (>60); Globulin 3.9 g/dL (2.2-4.2); Glucose 150 mg/dL (74-106); Protein, Total 7.6 g/dL (6.4-8.2); Sodium Level 138 mmol/L (136-145)
== END | disposition home or self-care (01) ==
LOC: BIMLAB 09:46
PROVIDERS: PCP Internal Medicine; Visit Provider Internal Medicine
DX: K21.00 Gastro-esophageal reflux disease with esophagitis, without bleeding (principal); M19.072 Primary osteoarthritis, left ankle and foot; S96.912A Strain of unspecified muscle and tendon at ankle and foot level, left foot, initial encounter; M54.9 Dorsalgia, unspecified; M79.89 Other specified soft tissue disorders
CPT/HCPCS: 36415; 80053; 85025; 85379; 85652; 86140

== ENCOUNTER → 2022-07-12 | Outpatient (CLI) | payer MEDICARE, OTHER, SELFPAY ==
--- NOTE | 2022-07-12 14:55 | VDLE_ITS ---
Reason For Study: Elevated D-dimer Procedure LEFT This is a venous duplex using B-mode, color GSV is normal. flow and spectral Doppler. CFV is compressible, spontaneous, phasic, Exam performed in department. competent, and demonstrates normal A preliminary report was called and/or faxed augmentation. to [facility]. FV is compressible, spontaneous, phasic, competent and demonstrates normal augmentation. POP V is compressible, spontaneous, phasic, competent and demonstrates normal augmentation. T/P Trunk is compressible. PTV is compressible. LT PerV is compressible. VL/Venous Duplex US, Unilateral Interpretation Summary There is no evidence of left lower extremity deep vein thrombosis. Left great s aphenous vein appears patent and compressible segmentally. Ordering Physician: Ora Nam Referring Physician: Ora Nam M.D. Performed By: Kitty Rolle RVT
== END | disposition home or self-care (01) ==
PROVIDERS: PCP Internal Medicine; Visit Provider Internal Medicine
DX: K21.00 Gastro-esophageal reflux disease with esophagitis, without bleeding (principal); M19.072 Primary osteoarthritis, left ankle and foot; S96.912A Strain of unspecified muscle and tendon at ankle and foot level, left foot, initial encounter; M54.9 Dorsalgia, unspecified; M79.89 Other specified soft tissue disorders
CPT/HCPCS: 36415; 80053; 85025; 85379; 85652; 86140; 93971

== ENCOUNTER → 2022-07-30 | Outpatient (CLI) | payer MEDICARE, OTHER, SELFPAY ==
[2022-07-30 17:18] LABS: T4 Free Direct 1.39 ng/dL (0.76-1.46); Thyroid Stim Hormone (TSH) 1.23 uIU/mL (0.358-3.74)
[2022-08-09 14:36] LABS: Anti-Thyroglobulin AB 1.6 IU/mL (0.0-0.9); Thyroglobulin RIA < 2.0 ng/mL (.)
== END | disposition home or self-care (01) ==
LOC: BIMLAB 15:32
PROVIDERS: PCP Internal Medicine; Referring Provider Internal Medicine Endocrinology, Diabetes & Metabolism; Visit Provider Internal Medicine Endocrinology, Diabetes & Metabolism
DX: I10 Essential (primary) hypertension (principal); C73 Malignant neoplasm of thyroid gland; E11.9 Type 2 diabetes mellitus without complications; E03.9 Hypothyroidism, unspecified
CPT/HCPCS: 36415; 84432; 84439; 84443; 86800

== ENCOUNTER 2022-09-20 05:32 | Inpatient (IN) | payer MEDICARE, OTHER, SELFPAY ==
--- NOTE | 2022-09-10 09:32 | EKG12_ITS ---
Test Reason : PRE-OP Blood Pressure : / mmHG Vent. Rate : 066 BPM Atrial Rate : 066 BPM P-R Int : 140 ms QRS Dur : 082 ms QT Int : 400 ms P-R-T Axes : 003 -10 010 degrees QTc Int : 419 ms Normal sinus rhythm Normal ECG Confirmed by ANGIE JARVIS, DARRYL ([id number]), web editor JUSTO LIM ([id number]) on 09/14/2022 10:56:20 AM Referred By: EDEL Confirmed By:OCTAVIO ADAMS MD
[2022-09-10 10:00] LABS: Hematocrit 40.3 % (37-47); Hemoglobin 14.1 g/dL (12.0-15.0); Mean Corpuscular Hgb 30.9 pg (27.0-32.0); Mean Corpuscular Volume 88.2 fL (81-99); Mean Platelet Vol. 9.3 fl (6.2-12.0); Platelet Count 270 K/mm3 (150-450); RBC Distribution Width SD 41.7 fl (35.1-43.9); Red Blood Count 4.57 M/mm3 (4.2-5.4); White Blood Count 8.7 K/mm3 (4.4-11.0)
[2022-09-10 10:25] LABS: Anion Gap 6 (5-15); BUN 16 mg/dL (7-18); BUN/Creat Ratio 22.8 RATIO (10-20); Calcium,Total 9.3 mg/dL (8.5-10.1); Chloride 102 mmol/L (98-107); EST Glomerular Filtration Rate 87 mL/min (>60); Est Glom Filt Rate - Afr Amer 106 mL/min (>60); Glucose 156 mg/dL (74-106); Potassium 3.7 mmol/L (3.5-5.1); Sodium Level 139 mmol/L (136-145)
[2022-09-10 12:26] LABS: Hemoglobin A1c 6.7 % (3.8-5.6)
[2022-09-20] VITALS (21 sets, daily range): BP systolic 110–150; BP diastolic 41–82; PULSE 56–77; RESP 12–18; TEMP 36.7–37.7; O2SAT 92–100; BMI 47.2
--- NOTE | 2022-09-20 06:36 | PCM.HP.BLA ---
History and Physical Date of Admission: 09/20/22 Allergies amoxicillin Allergy (Verified 06/23/22 14:42) Unknownduloxetine [From Cymbalta] Allergy (Verified 06/23/22 14:42) neuropathylosartan [Losartan] Allergy (Verified 06/23/22 14:42) Unknownramipril Allergy (Verified 06/23/22 14:42) Unknownranitidine HCl [From Zantac] Allergy (Verified 06/23/22 14:42) Unknownmeloxicam [From Mobic] Adverse Reaction (Severe, Verified 06/23/22 14:42) Heartburncelecoxib [From Celebrex] Adverse Reaction (Verified 06/23/22 14:42) Upset Stomachcortisone Adverse Reaction (Verified 06/23/22 14:42) emotional issuesglimepiride Adverse Reaction (Verified 06/23/22 14:42) Nausea/Vom/Diarrheametformin HCl [From Glucophage] Adverse Reaction (Verified 06/23/22 14:42) Nausea/Vom/Diarrheamethotrexate Adverse Reaction (Verified 06/23/22 14:42) UnknownPenicillins Adverse Reaction (Verified 06/23/22 14:42) Nausea/Vom/Diarrhea Medications fluticasone propionate 50 mcg/actuation nasal spray,suspension 1 spray NASAL DAILY PRN Congestion 09/29/15 [History Confirmed 06/23/22] cholecalciferol (vitamin D3) 50 mcg (2,000 unit) capsule 5,000 unit PO DAILY 08/24/17 [History Confirmed 06/23/22] ascorbate calcium (vitamin C) 500 mg tablet 500 mg PO DAILY 07/10/20 [History Confirmed 06/23/22] aspirin 81 mg tablet,delayed release (Adult Aspirin Regimen) 81 mg PO QDAY #90 tabs 01/30/21 [Rx Confirmed 06/23/22] metoprolol tartrate 100 mg tablet 50 mg PO BID #90 tabs 07/01/21 [Rx Confirmed 06/23/22] L.acidoph, paracasei,B. lactis 10 billion cell capsule (Digestive Advantage Advanced Probiotic) cell PO 07/23/21 [History Confirmed 06/23/22] d-mannose 500 mg capsule (AZO D-Mannose) 2 mg PO DAILY 07/23/21 [History Confirmed 06/23/22] triamterene 37.5 mg-hydrochlorothiazide 25 mg tablet 0.5 tab PO QHS #45 tabs 02/17/22 [Rx Confirmed 06/23/22] amlodipine 5 mg tablet 10 mg PO DAILY GENERIC BRAND CIPLA ONLY: pt cannot tolerate other #180 tabs 05/04/22 [Rx Confirmed 06/23/22] Trulicity 0.75 mg/0.5 mL subcutaneous pen injector (dulaglutide) 0.75 mg (0.5 mL) subcut QWEEK #2 mL 05/31/22 [Rx Confirmed 06/23/22] artifi.tears(hypromellose)(PF) 0.3 % eye drops 1 drp ophthalmic (eye) DAILY PRN 05/31/22 [History Confirmed 06/23/22] cyclosporine 0.05 % eye drops in a dropperette (Restasis) 1 drp ophthalmic (eye) Q12H 05/31/22 [History Confirmed 06/23/22] fluorometholone 0.1 % eye drops,suspension 1 drp ophthalmic (eye) BID 05/31/22 [History Confirmed 06/23/22] levothyroxine 175 mcg tablet 175 mcg PO DAILY #90 tabs 05/31/22 [Rx Confirmed 06/23/22] psyllium seed (sugar) oral powder (Metamucil (sugar) oral powder) 1 tbsp PO DAILY 05/31/22 [History Confirmed 06/23/22] pravastatin 20 mg tablet 20 mg PO DAILY #90 tabs 06/17/22 [Rx Confirmed 06/23/22] PFSH Medical History? Arthritis Asthma Atrial fibrillation Cancer Chest pain, unspecified Diabetes mellitus Essential hypertension Fatigue GERD (gastroesophageal reflux disease) Graves disease HLD (hyperlipidemia) HTN (hypertension) Hypothyroidism Knee pain Left carotid artery stenosis Multiple thyroid nodules Obesity Paroxysmal atrial fibrillation Postprocedural hypothyroidism Pulmonary hypertension Screening for intestinal cancer stem cell replacement Lt knee Stroke Thyroid cancer Visual disturbance Surgical History? H/O: hysterectomy History of knee replacement History of thyroidectomy, total S/P thyroid biopsy (~02/2018) Family History? Father CAD (coronary artery disease) Ischemic cardiomyopathyMother Atrial fibrillation CHF (congestive heart failure) Pulmonary fibrosisSister Myocardial infarction Diabetes [place] disease COPD (chronic obstructive pulmonary disease) HypertensionBrother Cancer ?? ? Pancreatic CA Diabetes Atrial fibrillation Social History? alcohol intake:? current alcohol intake frequency: holidays/special occasions only Alcohol type: wine substance use type:? does not use caffeine:? Yes Type: coffee what type of physical activity do you participate in:? other details: physical therapy frequency:? 1-2 times per week duration:? 45-60 minutes/day seatbelt use:? always do you feel safe at home:? Yes HPI HPI HPI: ANNIKA DOWNEY, is a 71 F who presents to the office today for surgical follow-up of a CTA of her carotids.? This suggests high-grade stenosis of her left internal carotid which would correlate with the carotid duplex imaging.? Among her other medications she is on low-dose aspirin therapy and pravastatin. June 17, 2022 STUDY:? CTA NECK WITH CONTRAST REASON FOR EXAM: ? Female, 71 years old.? Carotid stenosis RADIATION DOSAGE (If Supplied By Facility):? CTDIvol = ( 19.49 ) mGy, DLP = ( 589.29 ) mGycm TECHNIQUE: ? CT angiography with multi-detector data acquisition was performed from the aortic arch to the skull base following intravenous administration of IV 100mL [id number]-[id number].? MIP images were reconstructed from the axial data set.? Post-processing of the angiographic images was performed, with multiplanar reformation and 3D reconstruction. Individualized dose optimization techniques were used for this CT. COMPARISON: ? Comparison is made with prior examination dated 02/23/2016. FINDINGS: AORTIC ARCH: There is atherosclerotic calcific plaque formation of the aortic arch and great vessels arising from the aortic arch, without a hemodynamically significant stenosis. There is a normal origin of the brachiocephalic, left common carotid, and left subclavian arteries.? Atherosclerotic plaque formation of the origin of the left subclavian artery. RIGHT CAROTID ARTERIES: Normal right common carotid artery (CCA).? Normal right common carotid bulb. There is mild atherosclerotic plaque formation of the origin of the right internal carotid artery with less than 50% cross sectional diameter stenosis.? Normal visualized cervical portion of the right internal carotid artery. Normal origin of the right external carotid artery (ECA). LEFT CAROTID ARTERIES: Normal left common carotid artery (CCA).? Normal left common carotid bulb. There is extensive atherosclerotic plaque formation of the origin of the left internal carotid artery with an estimated stenosis of greater than 70%.? Normal visualized cervical portion of the left internal carotid artery. Normal origin of the left external carotid artery (ECA). VERTEBRAL ARTERIES: Normal bilateral vertebral arteries. CT/CTA Neck W/WO Contrast IMPRESSION: High-grade stenosis at the origin of the left internal carotid arteries caused by atherosclerotic calcific plaques. ? Less than 50% narrowing at the origin of the right internal carotid artery. ? Electronically Signed: Delano Alegria MD at 11:04 EDT , Chief Complaint: FU Carotid US 06/09 [employer] Required: No Is patient in pain?: No Allergies amoxicillin Allergy (Verified 06/14/22 13:14) Unknownduloxetine [From Cymbalta] Allergy (Verified 06/14/22 13:14) neuropathylosartan [Losartan] Allergy (Verified 06/14/22 13:14) Unknownramipril Allergy (Verified 06/14/22 13:14) Unknownranitidine HCl [From Zantac] Allergy (Verified 06/14/22 13:14) Unknownmeloxicam [From Mobic] Adverse Reaction (Severe, Verified 06/14/22 13:14) Heartburncelecoxib [From Celebrex] Adverse Reaction (Verified 06/14/22 13:14) Upset Stomachcortisone Adverse Reaction (Verified 06/14/22 13:14) emotional issuesglimepiride Adverse Reaction (Verified 06/14/22 13:14) Nausea/Vom/Diarrheametformin HCl [From Glucophage] Adverse Reaction (Verified 06/14/22 13:14) Nausea/Vom/Diarrheamethotrexate Adverse Reaction (Verified 06/14/22 13:14) UnknownPenicillins Adverse Reaction (Verified 06/14/22 13:14) Nausea/Vom/Diarrhea Medications fluticasone propionate 50 mcg/actuation nasal spray,suspension 1 spray NASAL DAILY PRN Congestion 09/29/15 [History Confirmed 06/14/22] cholecalciferol (vitamin D3) 50 mcg (2,000 unit) capsule 5,000 unit PO DAILY 08/24/17 [History Confirmed 06/14/22] ascorbate calcium (vitamin C) 500 mg tablet 500 mg PO DAILY 07/10/20 [History Confirmed 06/14/22] aspirin 81 mg tablet,delayed release (Adult Aspirin Regimen) 81 mg PO QDAY #90 tabs 01/30/21 [Rx Confirmed 06/14/22] metoprolol tartrate 100 mg tablet 50 mg PO BID #90 tabs 07/01/21 [Rx Confirmed 06/14/22] L.acidoph, paracasei,B. lactis 10 billion cell capsule (Digestive Advantage Advanced Probiotic) cell PO 07/23/21 [History Confirmed 06/14/22] d-mannose 500 mg capsule (AZO D-Mannose) 2 mg PO DAILY 07/23/21 [History Confirmed 06/14/22] red yeast rice 600 mg tablet 600 mg PO DAILY 10/02/21 [History Confirmed 06/14/22] triamterene 37.5 mg-hydrochlorothiazide 25 mg tablet 0.5 tab PO QHS #45 tabs 02/17/22 [Rx Confirmed 06/14/22] amlodipine 5 mg tablet 10 mg PO DAILY GENERIC BRAND CIPLA ONLY: pt cannot tolerate other #180 tabs 05/04/22 [Rx Confirmed 06/14/22] Trulicity 0.75 mg/0.5 mL subcutaneous pen injector (dulaglutide) 0.75 mg (0.5 mL) subcut QWEEK #2 mL 05/31/22 [Rx Confirmed 06/14/22] artifi.tears(hypromellose)(PF) 0.3 % eye drops 1 drp ophthalmic (eye) DAILY PRN 05/31/22 [History Confirmed 06/14/22] cyclosporine 0.05 % eye drops in a dropperette (Restasis) 1 drp ophthalmic (eye) Q12H 05/31/22 [History Confirmed 06/14/22] fluorometholone 0.1 % eye drops,suspension 1 drp ophthalmic (eye) BID 05/31/22 [History Confirmed 06/14/22] levothyroxine 175 mcg tablet 175 mcg PO DAILY #90 tabs 05/31/22 [Rx Confirmed 06/14/22] psyllium seed (sugar) oral powder (Metamucil (sugar) oral powder) 1 tbsp PO DAILY 05/31/22 [History Confirmed 06/14/22] PFSH Medical History? Arthritis Asthma Atrial fibrillation Cancer Chest pain, unspecified Diabetes mellitus Essential hypertension Fatigue GERD (gastroesophageal reflux disease) Graves disease HLD (hyperlipidemia) HTN (hypertension) Hypothyroidism Knee pain Left carotid artery stenosis Multiple thyroid nodules Obesity Paroxysmal atrial fibrillation Postprocedural hypothyroidism Pulmonary hypertension Screening for intestinal cancer stem cell replacement Lt knee Stroke Thyroid cancer Visual disturbance Surgical History? H/O: hysterectomy History of knee replacement History of thyroidectomy, total S/P thyroid biopsy (~02/2018) Family History? Father CAD (coronary artery disease) Ischemic cardiomyopathyMother Atrial fibrillation CHF (congestive heart failure) Pulmonary fibrosisSister Myocardial infarction Diabetes [place] disease COPD (chronic obstructive pulmonary disease) HypertensionBrother Cancer ?? ? Pancreatic CA Diabetes Atrial fibrillation Social History? alcohol intake:? current alcohol intake frequency: holidays/special occasions only Alcohol type: wine substance use type:? does not use caffeine:? Yes Type: coffee what type of physical activity do you participate in:? other details: physical therapy frequency:? 1-2 times per week duration:? 45-60 minutes/day seatbelt use:? always do you feel safe at home:? Yes HPI HPI HPI: ANNIKA DOWNEY, is a 71 F who presents to the office today for ongoing surgical evaluation of left carotid stenosis.? Her most recent office visit was June 25, 2021.? I have assisted her with a total thyroidectomy and treatment of Graves' disease.? July 22, 2015 she had a carotid duplex exam at [facility] suggesting 40 to 59% stenosis of the left internal carotid.? Subsequently February 23, [address] Jorje Cristobal she had a CTA of the neck showing less than 50% stenosis bilaterally.? By December 23, 2019 at the [facility] right mid ICA velocity was 109 cm/s and left ICA velocity was 246 cm/s consistent with greater than 70% stenosis of the left carotid.? As of June 22, 2021 less than 50% stenosis of the right internal carotid and peak systolic velocity of the left internal carotid was 246 consistent with greater than 70% stenosis but unchanged from the prior exam of December 23, 2019.? At that previous visit we made significant patient modification recommendations regarding diet and exercise and weight loss. As of May 27, 2022 triglycerides were 192 with a cholesterol of 221 and an LDL of 133.? At that time TSH was 10.4 with a free T4 of 1.18 and a free T3 of 1.8.? Dr. Wilfred Leggett is helping manage her thyroid disease. As of June 09, 2022 carotid duplex imaging demonstrated peak systolic velocity of the right internal carotid artery 816 cm second flow consistent with less than 50% stenosis.? Peak systolic velocity within the left internal carotid was 263 cm/s with an end-diastolic velocity of 66 cm second flow.? Again consistent with greater than 70% stenosis but not significantly changed from his prior study a year before.? Among her other medications she is on low-dose aspirin.? She is on red yeast rice.? She is not on a statin medication. On today's visit it became apparent that while in [place] on a trip apparently sometime ago she ran out of her pravastatin medication.? She could not get it renewed there.? Upon her return to the area locally she did not mention it to her primary care physician at that time.? She also did not make mention of it to her current care provider Dr. Ora Nam. Fortunately over the past year the patient absolutely strictly denies any focal neurologic changes.? No motor or sensory loss.? No orthostatic dizziness.? No vision changes.? No speech deficit. As of May 27, 2022 glucose was 133 with a BUN of 21 and a creatinine of 0.71.? Cholesterol was 221 with a triglyceride of 192 and an LDL of 133 with a VLDL 38.? Her thyroid abnormal with a free T3 of 1.8 TSH of 10.4 and T4 direct of 1.18 June 09, 2022 Reason For Study: CAROTID STENOSIS Rt. Velocities/BP? Lt. Velocities/BP Prox CCA 100.3/18.1 cm/sec.? Prox CCA 105.2/28.5 cm/sec. Mid CCA 124.0/19.9 cm/sec. ? Mid CCA 107.0/26.7 cm/sec. Dist CCA 68.7/15.8 cm/sec. ? Dist CCA 97.9/19.4 cm/sec. Prox ICA 116.1/26.7 cm/sec.? Prox ICA 263.7/66.6 cm/sec. Mid ICA 97.9/19.4 cm/sec.? Mid ICA 179.7/32.7 cm/sec. Dist ICA 83.4/20.8 cm/sec. ? Dist ICA 184.1/30.5 cm/sec. Rt. ICA/CCA = 116.1/124.0=0.9. ? Lt. ICA/CCA = 263.7/107.0=2.5. Prox ECA 119.8/8.4 cm/sec. ? Prox ECA 121.6/4.7 cm/sec. Rt. Vert. 64.7/14.2 cm/sec.? Lt. Vert. 62.8/21.1 cm/sec. Right Extracranial There is intimal thickening but no significant atherosclerotic plaque noted in the right common carotid artery. There is heterogeneous, irregular atherosclerotic plaque noted in the right internal carotid artery. There is no significant atherosclerotic plaque noted in the right external carotid artery. Antegrade flow is noted in the right vertebral artery. Left Extracranial There is intimal thickening but no significant atherosclerotic plaque noted in the left common carotid artery. There is heterogeneous, irregular atherosclerotic plaque noted in the left internal carotid artery. There is heterogeneous, irregular atherosclerotic plaque noted in the left external carotid artery. Antegrade flow is noted in the left vertebral artery. Procedure Carotid Duplex 50127. Exam performed in department. VL/Carotid Duplex Ultrasound Interpretation Summary Minimal plaque at the proximal right internal carotid artery with less than 50% stenosis Less than 50% stenosis right external carotid artery Irregular calcific plaque at the proximal left internal carotid artery with greater than 70% stenosis. Less than 50% stenosis left external carotid artery Patent and antegrade vertebral arteries bilaterally No change from the previous examination of June 22, 2021 ? Ordering Physician: Rusty Sawyer Referring Physician: Ora Nam Performed By: Kelle Chavira RDCS, RVT General General: Yes weight change and fatigue; No appetite, colon cancer, breast cancer or weakness HEENT HEENT: No difficulty swallowing, eye injury, eye surgery, swollen glands or hoarseness Endo Endocrine: Yes thyroid disease, diabetes mellitus and thyroid cancer; No Hair loss, heat intolerance or cold intolerance Skin Skin: No rash or changing moles Musc Musculoskeletal: Yes arthritis and rheumatoid arthritis; No back problems, gout or joint pain Cardio Cardiovascular: Yes murmur and high blood pressure; No pacemaker, heart disease, atrial fibrillation, heart attack, heart stent, palpitations, shortness of breat with exertion or chest pain Psych Psychiatric: No depression, anxiety or hearing voices Resp Respiratory: No shortness of breath, No sleep apnea, No cough, No COPD, Yes asthma, No emphysema and No wheezing Gastro Gastrointestinal: No abdominal pain, No nausea or vomiting, No diarrhea, No constipation, No blood in stool, Yes acid reflux, No hemorrhoids, No ulcers, No gallbladder problem and No black,tarry stools Ed Hematologic: No blood thinners, No blood disorders, No bleeding, No anemia and No blood clots Neuro Neurologic: No system reviewed and no additional complaints, except as documented, No as per HPI, No abnormal gait, No abnormal hearing, No abnormal movements, No abnormal speech, No behavioral changes, No burning sensations, No confusion, No convulsions, No disequilibrium, No dizziness, No localized weakness, No frequent falls, No headache(s), No lack of coordination, No loss of vision, No memory loss, No numbness, No other visual disturbances, No radicular pain, No restless legs, No sensory deficit, No syncope, No tingling, No tremor(s), No weakness and Yes other (Stroke/TIA around 1995) Exam Const General: cooperative, comfortable and no acute distress Nutritional Appearance: obese morbidly obese [facility] Head: normal to inspection Eyes General: appearance normal, both eyes and all related structures Neck Other: Neck is thick, carotids are palpable at approximately 2+ bilaterally, faint 1/6 bruits bilaterally Resp Effort & Inspection: normal respiratory effort Auscultation: clear to auscultation bilaterally Cardio Rate: regular rate Rhythm: regular rhythm Other: Bilateral radials are 2+.? Bilateral brachials 2+. GI Other: Notably overweight, cannot detect any internal organs Neuro General: patient alert, patient awake and patient oriented x3 Extrem General: no calf tenderness Psych Appearance: grossly normal Assessment and Plan Assessment and Plan (1) Left carotid artery stenosis: ?Status:?Chronic ?Plan: Currently the patient remains asymptomatic in regards to her carotid occlusive disease.? The peak systolic velocity within the left internal carotid only slightly increased.? This does place her at greater than 70% stenosis.? Her most recent CTA imaging dictates back to 2016.? The patient currently is not on a statin medication.? Comorbid features involve her mild hypercholesterolemia and elevated LDL and morbid obesity and type 2 diabetes mellitus and history of Graves' disease currently with clinical hypothyroidism and pulmonary hypertension.? Regarding her left carotid stenosis I believe that she would be a candidate for recurrent statin treatment and will refer back to Dr. Ora Nam. Assessment and Plan Assessment and Plan (1) Left carotid artery stenosis: ?Status:?Chronic ?Plan: Today's appointment was to review the CTA of her carotids.? I have personally reviewed the films as well.? She has greater than 70% stenosis of her left internal carotid.? This was demonstrated on her duplex exam as well which appeared to show progression.? Fortunately she has been able to initiate a statin medication.? I have discussed a left carotid enterectomy with patch angioplasty and arterial line monitoring.? She is aware of the technique, benefit, risk and alternatives.? Absolutely no guarantees of success have been offered.? She otherwise feels that she has a good quality of life.? After discussion of benefits and risks she would like to proceed with a left carotid enterectomy with bovine patch angioplasty and arterial line monitoring. Reviewing her medication I will have her hold her estrogen preoperatively. She is on low-dose aspirin. Low-dose aspirin.? There is increased intensity currently and managing her blood sugars. It is of note that the patient was restarted on pravastatin by Dr. Ora Nam. She complained of diffuse body aches and literally after 10 days ceased the medication. She is not on any statin medication currently. Despite this she continues to complain of aches and pains all over particularly her feet. This would not appear to correlate with a statin intolerance and she is not currently taking the medication. She traveled to [place] to assist with her cane water damage. She returns now on other than the intolerance to the pravastatin she has not had any neurologic changes chest pain or shortness of breath. She is complaining of foot pain and aches and wears foot boots. She denies history of DVT. Plan to proceed with a left carotid endarterectomy with bovine patch angioplasty. I anticipate arterial line monitoring. Appears to be neurologically intact chest is clear cardiac is regular. No apparent other sick clinically significant changes. We will proceed as noted. I appreciate the opportunity of assisting with her surgical care.? We will copy Dr. Ora Nam in case additional medical management is required preoperatively. Rusty Sawyer M.D., F.A.C.S.
--- NOTE | 2022-09-20 06:41 | OP.PCM_ITS ---
Report of Operation Date of Procedure: 09/20/22 Pre-Operative Diagnosis: Critical stenosis left extracranial internal carotid a rtery Post-Operative Diagnosis: Same Surgery/Procedure Performed:: Left radial arterial line placement Left carotid endarterectomy with bovine patch angioplasty Vascu-Guard 0.8 x 8 cm patch. Reference [id number], expiry date 04/14/2027. Lot number [id number], PN #[id number] Description of Surgical Findings:: At the bedside Ellis test performed demonstrating adequate ulnar flow on the left. The left wrist was gently extended prepped with Betadine. Under ultrasound guidance 1% lidocaine was used as local anesthetic. 1 cc was used. Under ultrasound guidance a 20-gauge Angiocath was inserted into the left radial artery and then with Seldinger wire technique was advanced. The catheter was secured to skin with 2-0 silk connected to pressure tubing connected and secured with OpSite and Garret wrap. She tolerated the procedure well there is no apparent complication. She was subsequently taken to the operating for definitive surgery. Timeout informed consent was obtained. The patient was taken to the operating placed supine on the table underwent general endotracheal intubation and anesthesia. Clindamycin 900 mg were given intravenously. The left neck was sterilely prepped and draped. An oblique incision was made along the anterior border the sternocleidomastoid. Sharp dissection was performed down through the subcutaneous tissue. The patient is noted to be morbidly obese. The sternocleidomastoid was reflected laterally as dissection was performed directly down upon the common carotid carotid bulb and proximal portion of the internal carotid. Circumferential control was obtained of the common carotid with a Eduardo tie of Dacron tape. Dacron tape and Natividad tourniquet was placed around the internal carotid and a vessel loop around the external carotid. Superior thyroid were secured with a 3-0 Vicryl Eduardo retaining suture. Patient then received 11,000 units of heparin weight-based. Peripheral vascular clamps were placed on the internal/external and common carotid artery and 11 blade was used to make an arteriotomy which was extended with Eduardo scissors #10 US CI style shunt was placed cephalad then proximally. Endarterectomy was performed fillet of the external elastic lamina. Focal plaque was seen right at the origin of the internal carotid and this was carefully completely removed. The plaque was sharply transected proximally and then feathered at the internal carotid further debris was removed with fine forceps and inversion and direction was performed the external carotid. A single tacking suture of 7-0 Prolene was placed cephalad. The vessel was irrigated all plaque removed. A bovine Vascu-Guard patch was shaped to form and a patch angioplasty created with a running 6-0 Prolene. Prior to completion the vessel was irrigated the shunt was removed there was good backflow change biopsy completed initial flow was instilled in the external carotid common carotid to the internal carotid. Single repair suture of 7-0 Prolene was required cephalad. Hemostasis was intact. The patient received 30 mg of protamine as reversal agent. Surgicel was temporarily used to assist with hemostasis and then was removed. The subcutaneous tissues were approximated running 3-0 Vicryl. Skin edges approximated running septic or 5-0 Vicryl. The periincisional areas Nestabs with 20 cc of 0.25% Marcaine. Steri-Strips Telfa tape dressings applied. Sponge and instrument and needle counts were reported to the surgeon to be correct. Specimen plaque. Drains none. Blood loss 200 cc. The patient was taken to the recovery room in satisfied condition without apparent complication Rusty Sawyer M.D., F.A.C.S. Surgeon: Rusty Sawyer Type of Anesthesia: General and Local Anesthesiologist: Herson Longo
--- NOTE | 2022-09-20 06:45 | DCINST_ITS ---
Discharge Instructions Diet Discharge Diet: Light diet - advance as tolerated Activity Discharge Activity: May Not Drive (5 to 7 days.) and May Not Shower (May shower on Sunday, September 25, 2022. Pat the Steri-Strips dry and leave in place for 1 week.) Lifting Restrictions: No lifting greater than 10 pounds Dressing / Incision Call your doctor if your incision/area has: Sudden Increased Bleeding and Increased Redness Call your doctor if you observe: Fever of 101 or Higher Follow Up Care Please Follow Up With: Rusty Sawyer MD When: Please call [phone] for office appointment in approximately 10 days Test Results: Test results from this visit will be discussed in further detail at your follow- up appointment, if applicable. Discharge Plan Admission Admit Date/Time: 09/20/22 05:32 Primary Reason for Your Visit: Left carotid stenosis Attending Provider: Rusty Sawyer Primary Care Provider: Ora Nam Discharge Orders/Prescriptions Prescriptions: Continued ascorbate calcium (vitamin C) 500 mg tablet 500 mg PO DAILY Digestive Advantage Advanced 10 billion cell capsule 10 cell PO DAILY AZO D-Mannose 500 mg capsule 2 mg PO DAILY fluorometholone 0.1 % drops,suspension 1 drp ophthalmic (eye) BID cyclosporine [Restasis] 0.05 % dropperette 1 drp ophthalmic (eye) Q12H Metamucil (sugar) Powder 1 tbsp PO PRN PRN (Reason: Constipation) artifi.tears(hypromellose)(PF) 0.3 % drops 1 drp ophthalmic (eye) DAILY PRN (Reason: Dry Eye(S)) fluticasone propionate 1 SPRAY spray,suspension 1 spray NASAL DAILY PRN (Reason: Congestion) cholecalciferol (vitamin D3) 2,000 UNIT capsule 5,000 unit PO DAILY ibuprofen 800 mg Tablet 800 mg PO BID estradiol [Vivelle-Dot] 0.1 mg/24 hr Patch Semiweekly 0.1 mg topical SUWE estradiol 0.01 % (0.1 mg/gram) Cream 1 g VAGINAL SUWE red yeast rice 600 mg Capsule 1,200 mg PO DAILY Rx Instructions: give with meal/snack omeprazole magnesium [Acid Operational Risk Analyst (omeprazole)] 20 mg Capsule,Delayed R elease(Dr/Ec) 40 mg PO BID levothyroxine 175 mcg tablet 175 mcg PO DAILY metoprolol tartrate 100 mg tablet 50 mg PO BID aspirin [Adult Aspirin Regimen] 81 mg tablet,delayed release (DR/EC) 81 mg PO QDAY triamterene-hydrochlorothiazid 37.5-25 mg tablet 0.5 tab PO QHS Trulicity 0.75 mg/0.5 mL pen injector 0.75 mg subcut WE amlodipine 5 mg tablet 10 mg PO DAILY Qty: 180 3RF Referrals / Follow Up: Ora Nam MD [Primary Care Provider] - Disposition Disposition (needs filled in before D/C Order can be placed): Home, Self Care
[2022-09-20] MEDS: Lactated Ringers 1,000 ML 15 ML IV ×3 (06:54→12:40)
[2022-09-20 07:05] LABS: Bedside Glucose 139 mg/dL (74-106)
[2022-09-20] MEDS: Clindamycin 900 MG/50 ML BAG 75 MG IV (07:25)
--- NOTE | 2022-09-20 07:30 | PLAQ_PTH ---
PATIENT: ANNIKA DOWNEY LOC: [facility] U#:[id number] AGE/SX: 72/F ROOM: [facility]319 RE09/20/[address]: Dr. Rusty Sawyer MD : 1950 BED: 1 DIS: 09/21/2022 SPEC #: [id number] RECD: 09/20/22 10:57 STATUS: TISHA VÁSQUEZ #: [id number] SUSAN: 09/20/22 07:[address]: Rusty Sawyer DEPT: SURGICAL PATHOLOGY RECD BY: Jazmine Cruz ENTERED: 09/20/22 11:48 SP TYPE: PLAQUE OTHR DR: Dr. Ora Nam MD Tissues: PLAQUE Procedures: Decalcification bone/plaque Surgery Specimen Level III HEADER OPERATION: Carotid endarterectomy with patch angioplasty, arterial line PRE-OP DIAGNOSIS: Left carotid artery stenosis TISSUE SUBMITTED: Left carotid plaque MICROSCOPIC DIAGNOSIS Left carotid plaque, endarterectomy: Atherosclerotic tissue with focal calcification (plaque). AMNA:armaan 09/22/2022 GROSS DESCRIPTION Received in fixative is one container labeled with the patient's name and designated left carotid plaque. The specimen consists of a previously opened tubular piece of garcía, indurated tissue measuring 2 cm in length and 0.7 cm in diameter. The specimen cuts with gritty sensation. The entire specimen is submitted in one cassette after decalcification. / AMNA:armaan 09/20/2022 TC:5 CPT: 79396, 96731
[2022-09-20] MEDS: Bupivacaine 0.25% 30 ML Vial (09:46)
[2022-09-20] MEDS: Heparin Injection (Vial) 5,000 UNIT/ML VIAL 5000 UNIT (09:47)
[2022-09-20 10:39] LABS: ACT Activated Clotting Time 132 sec (74-137)
[2022-09-20 11:40] LABS: Bedside Glucose 113 mg/dL (74-106)
[2022-09-20] MEDS: Aspirin E.C. 81 MG Tablet PO (15:21)
[2022-09-20 18:50] LABS: Bedside Glucose 138 mg/dL (74-106)
[2022-09-20] MEDS: Triamterene 75MG/Hctz 50MG Tablet 0.5 TABLET PO (21:17)
[2022-09-20] MEDS: Metoprolol Tartrate 50 MG Tablet PO (21:17)
[2022-09-20] MEDS: Pantoprazole Sodium 40 MG Tablet PO (21:17)
[2022-09-20 21:45] LABS: Bedside Glucose 115 mg/dL (74-106)
[2022-09-21 03:30] VITALS: BP 120/47; PULSE 70; RESP 18; TEMP 36.8; O2SAT 94
[2022-09-21] MEDS: Levothyroxine 175 MCG Tablet PO (04:08)
--- NOTE | 2022-09-21 04:09 | NURSING ---
pt up to BR and walking halls at this time
--- NOTE | 2022-09-21 06:08 | PCM.PN.SRG ---
Subjective Subjective Patient is doing very well. She has no complaints. Minimal neck soreness. Objective Data Objective Data Vital Signs: Vital Signs Temp Pulse Resp BP Pulse Ox O2 Del Method O2 Flow Rate 98.3 F 70 18 120/47 L 94 Room Air 8 09/21/22 03:30 09/21/22 03:30 09/21/22 03:30 09/21/22 03:30 09/21/22 03:30 09/21/22 03:30 09/20/22 10:30 Oxygen Flow Rate (L/min) 8 Oxygen Delivery Method Room Air Weight: 257 lb 15.053 oz Body Mass Index (BMI) 47.2 Intake & Output: Intake and Output for Last 24 Hours 09/19/22 09/20/22 09/21/22 23:59 23:59 23:59 Intake Total 2179.5 / 2179.5 Balance 2179.5 / 2179.5 Lab / Micro Data Result Diagrams: 09/10/22 09:46 09/10/22 09:46 Labs: Laboratory Results - last 24 hr 09/20/22 06:40: Activated Clotting Time 132 09/20/22 06:47: POC Glucose 139 H 09/20/22 11:23: POC Glucose 113 H 09/20/22 18:04: POC Glucose 138 H 09/20/22 21:15: POC Glucose 115 H Physical Exam Narrative Alert, intact, absolutely no distress Const Constitutional Narrative: Left neck is supple clean and dry Resp normal respiratory effort Assessment & Plan Assessment/Plan (1) Left carotid artery stenosis: PLAN: Patient has done well status post left carotid enterectomy. She will resume routine medications. I have asked her to follow-up with Dr. Ora Nam regarding her statin treatment. Plan office surgical follow-up in 10 days. Rusyt Sawyer M.D., F.A.C.S.
[2022-09-21 06:30] LABS: Bedside Glucose 121 mg/dL (74-106)
[2022-09-21] MEDS: Aspirin E.C. 81 MG Tablet PO (07:50)
[2022-09-21] MEDS: amLODIPine 10 MG Tablet PO (07:50)
[2022-09-21] MEDS: Pantoprazole Sodium 40 MG Tablet PO (07:50)
[2022-09-21 07:51] VITALS: PULSE 55
[2022-09-21 08:44] VITALS: BP 130/55; PULSE 55; RESP 17; TEMP 36.8; O2SAT 97
[2022-09-21 08:46] VITALS: BP 130/55; PULSE 55; RESP 17; TEMP 36.8; O2SAT 97
--- NOTE | 2022-09-21 09:15 | CASEMGMT ---
DIXON SANDOVAL Assessment: Face to Face with pt for initial transition planning/care coordination assessment. DIXON SANDOVAL introduced self and role at [facility], pt voices understanding and consents to assessment. Pt is A/O x4 and answers all questions appropriately at this time. Pt granddtr present in room and patient agreeable to continue with assessment. Care providers, pharmacy, and demographics verified/updated. Admitting Dx: left carotid endaterectomy PCP:Viv Specialists:OLIMPIA Sawyer; gus Leggett; pierre Brar Preferred Pharmacy: [facility] Win Insurance: [facility], MMO Prescription Benefit: yes LW/HPOA: Pt has LW/DPOA on file at [facility]. Her DPOA is her , Francis Daigle. LNOK: Francis Daigle, Living Arrangements: Pt lives with in a two story house with main living quarters on first floor. Pt reports she is I in ADL's and denies concerns at home. Transportation: Pt drives self and denies concerns with transportation. DME/HHC/SNF: Pt has a cane and sometimes uses. Pt denies hx of HHC or SNF stays. Pt states no concerns with going home at time of dc. Pt states no further concerns/needs. CM to follow. Advised pt to ask CM if any further question/concerns/needs arise, voices understanding. Pt Goal: Home Plan: Home
== END 2022-09-21 09:35 | disposition home or self-care (01) | DRG 38 ==
LOC: ACINP 08:38 → MS3 09-21 06:11 → PCU 09-21 11:51
PROVIDERS: Anesthesiology; Admitting Provider Surgery; PCP Internal Medicine; Referring Provider Surgery; Visit Provider Surgery
PROC: 03CL0ZZ Extirpation of Matter from Left Internal Carotid Artery, Open Approach (ICD-10-PCS; CPT 35301; principal; 2022-09-20 07:10)
DX: I65.23 Occlusion and stenosis of bilateral carotid arteries (principal); Z68.42 Body mass index [BMI] 45.0-49.9, adult; E11.9 Type 2 diabetes mellitus without complications; E66.01 Morbid (severe) obesity due to excess calories; I48.0 Paroxysmal atrial fibrillation; E89.0 Postprocedural hypothyroidism; I10 Essential (primary) hypertension; E78.5 Hyperlipidemia, unspecified; Z79.82 Long term (current) use of aspirin; Z79.899 Other long term (current) drug therapy
CPT/HCPCS: 36415; 80048; 82962; 83036; 85027; 85347; 88304; 88311; 93005; J7040; J7120

== ENCOUNTER → 2022-10-27 | Outpatient (CLI) | payer MEDICARE, OTHER, SELFPAY ==
--- NOTE | 2022-10-27 09:03 | CDUL_ITS ---
Reason For Study: Carotid stenosis Lt. Velocities/BP Prox CCA 99.8/21.2 cm/sec. Mid CCA 96.1/18.8 cm/sec. Dist CCA 140.7/18.9 cm/sec. Prox ICA 54.4/9 cm/sec. Mid ICA 79/16.3 cm/sec. Dist ICA 86.3/22.5 cm/sec. Lt. ICA/CCA = 0.86. Prox ECA 114.8/11.6 cm/sec. Lt. Vert. 64.2/13.9 cm/sec. Left Extracranial There is heterogeneous, irregular atherosclerotic plaque noted in the left common carotid artery. There is heterogeneous, irregular atherosclerotic plaque noted in the left internal carotid artery. There is intimal thickening but no significant atherosclerotic plaque noted in the left external carotid artery. Antegrade flow is noted in the left vertebral artery. Procedure Carotid Duplex 91478. This is a Carotid Duplex examination using B-mode, color flow and specral Doppler. The study was technically difficult. Exam performed in department. VL/Carotid Unilateral Interpretation Summary Heterogenous irregular plaque at the distal left common carotid artery. Postoperative change of the left carotid bulb difficult to visualize secondary to the depth of the vessel but less than 50% stenosis Less than 50% stenosis left external carotid artery Patent and antegrade left vertebral Significant improvement of the left internal carotid artery from the previous e xamination of June 09, 2022 Ordering Physician: Celia Bailon Referring Physician: Ora Nam M.D. Performed By: Kitty Rolle RVT
== END | disposition home or self-care (01) ==
LOC: CVS 09:02
PROVIDERS: PCP Internal Medicine; Referring Provider Physician Assistant; Visit Provider Physician Assistant
DX: I65.22 Occlusion and stenosis of left carotid artery (principal); R42 Dizziness and giddiness
CPT/HCPCS: 93882

== ENCOUNTER 2022-12-12 09:55 | Emergency (ER) | payer MEDICARE, OTHER, SELFPAY ==
[2022-12-12 09:56] VITALS: BP 135/60; PULSE 96; RESP 20; TEMP 36.3; O2SAT 94; BMI 45.7
--- NOTE | 2022-12-12 10:16 | EKG12_ITS ---
Test Reason : GENERAL ILLNESS Blood Pressure : / mmHG Vent. Rate : 087 BPM Atrial Rate : 087 BPM P-R Int : 168 ms QRS Dur : 080 ms QT Int : 364 ms P-R-T Axes : 054 -21 033 degrees QTc Int : 438 ms Normal sinus rhythm Normal ECG Confirmed by MUKUND JARVIS, VICTORIANO ([id number]), rewrite editor JUSTO LIM ([id number]) on 12/13/2022 11:44:34 AM Referred By: DIEGO Confirmed By:VICTORIANO DUVAL MD
--- NOTE | 2022-12-12 10:17 | EX.ED.DYSGE1 ---
HPI History of Present Illness Chief Complaint: General Illness Informant: patient and family Narrative Narrative: COVID-positive tested yesterday symptomatic 2 days ago. Reports chest congestion headache 2 days ago. Joint pains. Changes in taste. Nausea. Decreased appetite. No diarrhea. Vaccinated with [employer] in 2019 she had COVID once prior to that. History of diabetes, carotid artery disease status post left carotid endarterectomy in August of last year. No cardiac history. History of Graves' disease. History of gastric ulcers. Prior similar symptoms: Yes PFSH PFSH Medical History Anxiety Arthritis Asthma Atrial fibrillation Back pain Bladder leak Cancer Cancer Cardiology follow-up encounter Carotid stenosis Chest pain, unspecified Concussion Diabetes Diabetes mellitus Dietary restriction Diverticulitis Edema Essential hypertension Fatigue Fatty liver GERD (gastroesophageal reflux disease) GERD (gastroesophageal reflux disease) Graves disease H/O echocardiogram Hemochromatosis Hernia, hiatal History of pain when walking History of stress test HLD (hyperlipidemia) HTN (hypertension) Hx of duodenal ulcer Hyperthyroidism Hypothyroidism Knee pain Left carotid artery stenosis Light-headedness Mini stroke Non-smoker Obesity Paroxysmal atrial fibrillation Postprocedural hypothyroidism Pulmonary hypertension Restless leg Rheumatic fever Screening for intestinal cancer stem cell replacement Lt knee Thyroid cancer Visual disturbance Wears glasses Home Medications fluticasone propionate 50 mcg/actuation nasal spray,suspension 1 spray NASAL DAILY PRN Congestion 09/29/15 [History Last Taken Unknown] cholecalciferol (vitamin D3) 50 mcg (2,000 unit) capsule 5,000 unit PO DAILY SUPPLEMENT 08/24/17 [History Last Taken Unknown] ascorbate calcium (vitamin C) 500 mg tablet 500 mg PO DAILY SUPPLEMENT 07/10/20 [History Last Taken Unknown] L.acidoph, paracasei,B. lactis 10 billion cell capsule (Digestive Advantage Advanced Probiotic) 10 cell PO DAILY STOAMCH 07/23/21 [History Last Taken Unknown] d-mannose 500 mg capsule (AZO D-Mannose) 2 mg PO DAILY BLADDER 07/23/21 [History Last Taken Unknown] amlodipine 5 mg tablet 10 mg PO DAILY GENERIC BRAND CIPLA ONLY: pt cannot tolerate other #180 tabs 05/04/22 [Rx Last Taken 09/20/22] artifi.tears(hypromellose)(PF) 0.3 % eye drops 1 drp ophthalmic (eye) DAILY PRN Dry Eye(S) 05/31/22 [History Last Taken Unknown] cyclosporine 0.05 % eye drops in a dropperette (Restasis) 1 drp ophthalmic (eye) Q12H DRY EYE 05/31/22 [History Last Taken Unknown] fluorometholone 0.1 % eye drops,suspension 1 drp ophthalmic (eye) BID GLAUCOMA 05/31/22 [History Last Taken Unknown] psyllium seed (sugar) oral powder (Metamucil (sugar) oral powder) 1 tbsp PO PRN PRN Constipation 05/31/22 [History Last Taken Unknown] aspirin 81 mg tablet,delayed release (Adult Aspirin Regimen) 81 mg PO QDAY HEART HEALTH 09/09/22 [History Last Taken Unknown] dulaglutide 0.75 mg/0.5 mL subcutaneous pen injector (Trulicity) 0.75 mg subcut WE DIABETES 09/09/22 [History Last Taken Unknown] estradiol 0.01% (0.1 mg/gram) vaginal cream 1 g vaginal SUWE MENOPAUSE 09/09/22 [History Last Taken Unknown] estradiol 0.1 mg/24 hr semiweekly transdermal patch (Vivelle-Dot) 0.1 mg topical SUWE MENOPAUSE 09/09/22 [History Last Taken Unknown] ibuprofen 800 mg tablet 800 mg PO BID PAIN 09/09/22 [History Last Taken Unknown] metoprolol tartrate 100 mg tablet 50 mg PO BID BP 09/09/22 [History Last Taken 09/20/22] omeprazole magnesium 20 mg capsule,delayed release (Acid Railroad Wheels And Axle Inspector (omeprazole)) 40 mg PO BID GERD 09/09/22 [History Last Taken 09/20/22] red yeast rice 600 mg capsule 1,200 mg PO DAILY CHOLESTEROL 09/09/22 [History Last Taken Unknown] triamterene 37.5 mg-hydrochlorothiazide 25 mg tablet 0.5 tab PO QHS BP 09/09/22 [History Last Taken Unknown] Trulicity 1.5 mg/0.5 mL subcutaneous pen injector (dulaglutide) 1.5 mg (0.5 mL) subcut QWEEK #2 mL 10/04/22 [Rx Last Taken Unknown] levothyroxine 175 mcg tablet 175 mcg PO DAILY #90 tabs 10/04/22 [Rx Last Taken Unknown] multivitamin (Daily Multi-Vitamin tablet) 1 tab PO DAILY 10/04/22 [History Last Taken Unknown] nirmatrelvir 300 mg (150 mg x2)-ritonavir 100 mg tablet,dose pack(EUA) (Paxlovid) See Rx Instructions PO .COMPLEX #30 tabs 12/12/22 [Rx Last Taken Unknown] ondansetron 4 mg disintegrating tablet 4 mg PO Q8H PRN PRN Nausea #10 tabs 12/12/22 [Rx Last Taken Unknown] Allergy/AdvReac Type Severity Reaction Status Date / Time amoxicillin Allergy Unknown Verified 12/12/22 09:59 duloxetine [From Cymbalta] Allergy neuropathy Verified 12/12/22 09:59 losartan [Losartan] Allergy Unknown Verified 12/12/22 09:59 ramipril Allergy Unknown Verified 12/12/22 09:59 ranitidine HCl [From Zantac] Allergy Unknown Verified 12/12/22 09:59 meloxicam [From Mobic] AdvReac Severe Heartburn Verified 12/12/22 09:59 celecoxib [From Celebrex] AdvReac Upset Verified 12/12/22 09:59 Stomach cortisone AdvReac emotional Verified 12/12/22 09:59 issues glimepiride AdvReac Nausea/Vom/ Verified 12/12/22 09:59 Diarrhea metformin HCl AdvReac Nausea/Vom/ Verified 12/12/22 09:59 [From Glucophage] Diarrhea methotrexate AdvReac Unknown Verified 12/12/22 09:59 Penicillins AdvReac Nausea/Vom/ Verified 12/12/22 09:59 Diarrhea pravastatin AdvReac MUSCLE PAIN Verified 12/12/22 09:59 Family History Father CAD (coronary artery disease) Ischemic cardiomyopathy Mother Atrial fibrillation CHF (congestive heart failure) Pulmonary fibrosis Sister Myocardial infarction Diabetes Laporte disease COPD (chronic obstructive pulmonary disease) Hypertension Brother Cancer Pancreatic CA Diabetes Atrial fibrillation Surgical History H/O: hysterectomy History of knee replacement History of left-sided carotid endarterectomy (~09/20/22) History of thyroidectomy, total Hx of cardiac catheterization S/P thyroid biopsy (~02/2018) Social History Smoking Status: Never smoker alcohol intake: current alcohol intake frequency: holidays/special occasions only Alcohol type: wine substance use type: does not use caffeine: Yes Type: coffee what type of physical activity do you participate in: other details: physical therapy frequency: 1-2 times per week duration: 45-60 minutes/day seatbelt use: always do you feel safe at home: Yes ROS ROS ED Constitutional Constitutional ED: Reports fever(s); Denies chills or sweats Eyes Eyes: Denies change in vision ENT ENT ED: Denies dysphagia or sore throat Cardiovascular Cardiovascular: Denies chest pain, leg edema, palpitations or racing heartbeat Respiratory/Chest Respiratory/Chest: Reports cough; Denies dyspnea or dyspnea on exertion Gastrointestinal Gastrointestinal: Reports nausea; Denies abdominal pain, diarrhea or vomiting Genitourinary Genitourinary ED: Denies dysuria, hematuria or urinary frequency Musculoskeletal Musculoskeletal: Reports myalgias; Denies back pain, extremity pain or neck pain Integumentary Denies rash or wounds Neurologic Neurologic: Reports headache(s); Denies paresthesias or weakness EXAM Physical Exam Const Vital Signs: 12/12/22 09:56 12/12/22 10:36 Temperature 97.3 F L Temperature Source Temporal Pulse Rate 96 Respiratory Rate 20 H Respiratory Effort Normal Non-Labored Blood Pressure 135/60 H Blood Pressure Mean 85 Pulse Ox 94 Oxygen Delivery Method Room Air Positive well nourished and well developed General Appearance ED: well developed and NAD HEENT Reports dry mucous membranes HEENT Narrative: Mild dry mucosal membranes. normocephalic and atraumatic Mouth ED: Yes dry mucous membranes Mouth: dry mucous membranes Eyes PERRL, EOMs intact bilaterally and conjunctivae normal General Eye ED: Yes normal appearance of both eyes Neck no lymphadenopathy and supple Neck Narrative: No meningismus General: Negative for tenderness Chest Wall Chest: Negative for tenderness Resp normal respiratory effort and normal air movement Effort and Inspection: symmetric chest movement; Negative for respiratory distress Cardio regular rate, regular rhythm and no murmurs Peripheral Pulses: pulses 2+ throughout GI normal to inspection, nondistended, normoactive bowel sounds and non-tender Palpation: Negative for guarding or rebound tenderness present Back/Spine no CVA tenderness and no thoracic nor lumbar tenderness Extremity normal to inspection General Extremety ED: Negative for edema or tenderness General Extremity: Negative for edema Neuro oriented x3, CN's II-XII intact bilaterally and no sensory deficits noted Sensorium / Orientation: awake and alert Skin no rashes or lesions noted and no wounds MDM MDM MDM Narrative Medical decision making narrative: Interventions / MDM: Differential diagnosis:COVID-19 infection, viral syndrome,Electrolyte abnormalities Diagnosis considered but do not suspect: Pulmonary embolism, however denies exertional dyspnea and not hypoxic My EKG interpretation: sinus rate of 87, no ST or T wave changes. Imaging independently reviewed and interpreted by myself: 1 view chest x-ray no acute process. External documents reviewed: N/A Test considered but not ordered:N/A ED course: Patient with positive COVID day 2 of symptoms. Vital signs stable pulse ox 94%. Reporting headache with no focal deficits. Chest x-ray 1 view no acute process. Labs sodium 133 slightly low however she states it is always low for her. This is not low enough to cause any problems. She is reassured, she normal renal function I discussed treatment with Paxlovid with side effects for which they would like. She is given additional prescription for Zofran. She was ambulated she went down to 91%. She is on day 2 symptoms they will fish bait picker a pulse oximeter to monitor with strict return precautions. Otherwise outpatient follow-up. Re-evaluation: stable Disposition discussed with patient/family/significant other: Patient and family Case discussed with consulting clinician: N/A Lab Data Attestation: I reviewed the patient's lab results. Labs: Laboratory Results - last 24 hr 12/12/22 12/12/22 10:34 10:34 WBC 8.2 RBC 4.51 Hgb 13.6 Hct 39.9 MCV 88.5 MCH 30.2 MCHC 34.1 RDW Std Deviation 44.2 H RDW Coeff of Bhargav 13.4 Plt Count 194 MPV 9.4 Immature Gran % (Auto) 0.400 Neut % (Auto) 76.7 H Lymph % (Auto) 10.3 L [place] % (Auto) 11.2 H Eos % (Auto) 0.9 Baso % (Auto) 0.5 Absolute Neuts (auto) 6.3 Absolute Lymphs (auto) 0.85 Nucleated RBC % 0 Sodium 133 L Potassium 3.7 Chloride 96 L Carbon Dioxide 30.0 Anion Gap 7 BUN 12 Creatinine 0.82 Estim Creat Clear Calc 49.77 Est GFR (MDRD) Af Amer 88 Est GFR (MDRD) Non-Af 73 BUN/Creatinine Ratio 14.6 Glucose 175 H Calcium 8.9 Radiography Diagnostic Testing: Clinical Impression(s) from Imaging Studies Chest X-Ray 12/12/22 10:35 IMPRESSION: No radiographic evidence of acute cardiopulmonary disease. Electronically Signed: Patrica Jones MD at 10:44 EST , EKG Initial EKG: Attestation: I personally reviewed and interpreted this EKG as follows: Comments: sinus rate of 87, no ST or T wave changes. Discharge Plan Triage Chief Complaint: General Illness ED Provider: Robson Carr Dx/Rx/DC Orders Clinical Impression: COVID-19, Hyponatremia, Cough Instructions: Coronavirus Disease 2019 (COVID-19): Caring for Yourself or Others Prescriptions: New Paxlovid (EUA) 300 mg (150 mg x 2)-100 mg tablets,dose pack See Rx Instructions .ROUTE .COMPLEX Qty: 30 0RF Rx Instructions: take TWO 150 mg tablets of nirmatrelvir with ONE 100 mg tablet of ritonavir twice daily for 5 days ondansetron [ondansetron] 4 mg tablet,disintegrating 4 mg PO Q8H PRN PRN (Reason: Nausea) Qty: 10 0RF No Action ascorbate calcium (vitamin C) 500 mg tablet 500 mg PO DAILY Digestive Advantage Advanced 10 billion cell capsule 10 cell PO DAILY AZO D-Mannose 500 mg capsule 2 mg PO DAILY fluorometholone 0.1 % drops,suspension 1 drp ophthalmic (eye) BID cyclosporine [Restasis] 0.05 % dropperette 1 drp ophthalmic (eye) Q12H Metamucil (sugar) Powder 1 tbsp PO PRN PRN (Reason: Constipation) artifi.tears(hypromellose)(PF) 0.3 % drops 1 drp ophthalmic (eye) DAILY PRN (Reason: Dry Eye(S)) multivitamin [Daily Multi-Vitamin] Tablet 1 tab PO DAILY Trulicity 1.5 mg/0.5 mL pen injector 1.5 mg subcut QWEEK Qty: 2 4RF levothyroxine 175 mcg tablet 175 mcg PO DAILY Qty: 90 3RF fluticasone propionate 1 SPRAY spray,suspension 1 spray NASAL DAILY PRN (Reason: Congestion) cholecalciferol (vitamin D3) 2,000 UNIT capsule 5,000 unit PO DAILY ibuprofen 800 mg Tablet 800 mg PO BID estradiol [Vivelle-Dot] 0.1 mg/24 hr Patch Semiweekly 0.1 mg topical SUWE estradiol 0.01 % (0.1 mg/gram) Cream 1 g VAGINAL SUWE red yeast rice 600 mg Capsule 1,200 mg PO DAILY Rx Instructions: give with meal/snack omeprazole magnesium [Acid Railroad Wheels And Axle Inspector (omeprazole)] 20 mg Capsule,Delayed Release(Dr/Ec) 40 mg PO BID metoprolol tartrate 100 mg tablet 50 mg PO BID aspirin [Adult Aspirin Regimen] 81 mg tablet,delayed release (DR/EC) 81 mg PO QDAY triamterene-hydrochlorothiazid 37.5-25 mg tablet 0.5 tab PO QHS Trulicity 0.75 mg/0.5 mL pen injector 0.75 mg subcut WE amlodipine 5 mg tablet 10 mg PO DAILY Qty: 180 3RF Primary Care Provider: Ora Nam Referrals: Ora Nam MD [Primary Care Provider] - Activity Restrictions/Additional Instructions: Chest x-ray negative sodium 133. Monitor your pulse oximetry, if worsening dyspnea and pulse ox below 88%, return for reevaluation. Take medication as prescribed. Disposition Disposition: Home, Self Care
[2022-12-12] MEDS: Acetaminophen 500 MG Tablet 1000 MG PO (10:31)
[2022-12-12] MEDS: Ondansetron 4 MG/2 ML Vial IV (10:31)
--- NOTE | 2022-12-12 10:35 | RAD_ITS ---
INDICATION: cough -- covid + EXAMINATION/TECHNIQUE: X-RAY - XR Chest 1 View COMPARISON: October 22, 2020 FINDINGS: LINES/DEVICES: None. LUNGS: There is no new focal consolidation. MEDIASTINUM AND CARDIOVASCULAR STRUCTURES: Cardiac silhouette not enlarged. Central airways and mediastinal contour are unremarkable. BONES AND SOFT TISSUES: Unremarkable. RAD/Chest 1 View (Portable) IMPRESSION: No radiographic evidence of acute cardiopulmonary disease. Electronically Signed: Patrica Jones MD at 10:44 EST ,
[2022-12-12 10:45] LABS: Absolute Lymphocyte Count 0.85 X10^3/uL (0.83-4.51); Absolute Neutrophil Count 6.3 X10^3/uL (2.0-7.7); Basophil# 0.04 X10^3/uL; Basophil% 0.5 % (0-1); Eosinophil# 0.07 X10^3/uL; Eosinophils% 0.9 % (0-5); Hematocrit 39.9 % (37-47); Hemoglobin 13.6 g/dL (12.0-15.0); Lymphocyte # 0.85 X10^3/ul (0.83-4.51); Lymphocyte % 10.3 % (19-41); Mean Corp Hgb Conc 34.1 g/dL (32-36); Mean Corpuscular Hgb 30.2 pg (27.0-32.0); Mean Corpuscular Volume 88.5 fL (81-99); Mean Platelet Vol. 9.4 fl (6.2-12.0); Monocyte# 0.92 X10^3/uL; Monocyte% 11.2 % (0-10); NRBC Flagged by Analyzer 0 % (0-5); Neutrophil # 6.32 X10^3/uL (2.7-7.7); Neutrophil % 76.7 % (47-70); Platelet Count 194 K/mm3 (150-450); RBC Distribution Width CV 13.4 % (11.6-14.6); RBC Distribution Width SD 44.2 fl (35.1-43.9); Red Blood Count 4.51 M/mm3 (4.2-5.4); White Blood Count 8.2 K/mm3 (4.4-11.0)
[2022-12-12 10:54] LABS: Anion Gap 7 (5-15); BUN 12 mg/dL (7-18); BUN/Creat Ratio 14.6 RATIO (10-20); Calcium,Total 8.9 mg/dL (8.5-10.1); Chloride 96 mmol/L (98-107); Creatinine, Serum 0.82 mg/dL (0.55-1.02); EST Glomerular Filtration Rate 73 mL/min (>60); Est Glom Filt Rate - Afr Amer 88 mL/min (>60); Estimated Creatinine Clearance 49.77 ml/min; Glucose 175 mg/dL (74-106); Potassium 3.7 mmol/L (3.5-5.1); Sodium Level 133 mmol/L (136-145)
[2022-12-12 11:44] VITALS: O2SAT 97
== END 2022-12-12 12:28 | disposition home or self-care (01) ==
PROVIDERS: Emergency Provider Emergency Medicine; PCP Internal Medicine; Visit Provider Emergency Medicine
DX: U07.1 COVID-19 (principal); E11.9 Type 2 diabetes mellitus without complications; E78.5 Hyperlipidemia, unspecified; E87.1 Hypo-osmolality and hyponatremia; I10 Essential (primary) hypertension; R05.9 Cough, unspecified
CPT/HCPCS: 71045; 80048; 85025; 93005; 96361; 96374; 99285; J7040; J2405

== ENCOUNTER → 2023-02-01 | Outpatient (CLI) | payer MEDICARE, OTHER, SELFPAY ==
[2023-02-01 12:28] LABS: Absolute Lymphocyte Count 2.56 X10^3/uL (0.83-4.51); Absolute Neutrophil Count 5.1 X10^3/uL (2.0-7.7); Basophil# 0.05 X10^3/uL; Basophil% 0.6 % (0-1); Eosinophil# 0.33 X10^3/uL; Eosinophils% 3.7 % (0-5); Hematocrit 39.9 % (37-47); Hemoglobin 13.5 g/dL (12.0-15.0); Lymphocyte # 2.56 X10^3/ul (0.83-4.51); Lymphocyte % 28.8 % (19-41); Mean Corp Hgb Conc 33.8 g/dL (32-36); Mean Corpuscular Hgb 30.1 pg (27.0-32.0); Mean Corpuscular Volume 88.9 fL (81-99); NRBC Flagged by Analyzer 0 % (0-5); Neutrophil # 5.11 X10^3/uL (2.7-7.7); Neutrophil % 57.6 % (47-70); Platelet Count 265 K/mm3 (150-450); RBC Distribution Width CV 13.7 % (11.6-14.6); RBC Distribution Width SD 44.4 fl (35.1-43.9); Red Blood Count 4.49 M/mm3 (4.2-5.4); White Blood Count 8.9 K/mm3 (4.4-11.0)
[2023-02-01 12:53] LABS: Hemoglobin A1c 6.5 % (3.8-5.6)
[2023-02-01 12:54] LABS: ALB/GLOB Ratio 0.8 RATIO (0.9-2.4); AST(SGOT) 15 U/L (15-37); Alanine Aminotransfer ALT/SGPT 28 U/L (13-56); Albumin, Serum 3.6 g/dL (3.2-5.0); Alkaline Phosphatase 74 U/L (45-117); Anion Gap 8 (5-15); BUN 19 mg/dL (7-18); BUN/Creat Ratio 22.9 RATIO (10-20); Calcium,Total 9.2 mg/dL (8.5-10.1); Chloride 100 mmol/L (98-107); Cholesterol 238 mg/dL (200); Creatinine, Serum 0.83 mg/dL (0.55-1.02); EST Glomerular Filtration Rate 72 mL/min (>60); Est Glom Filt Rate - Afr Amer 87 mL/min (>60); Free T3 2.2 pg/mL (2.18-3.98); Globulin 4.3 g/dL (2.2-4.2); Glucose 155 mg/dL (74-106); High Density Lipoprotein 51 mg/dL; Potassium 3.8 mmol/L (3.5-5.1); Protein, Total 7.9 g/dL (6.4-8.2); Sodium Level 135 mmol/L (136-145); T4 Free Direct 1.56 ng/dL (0.76-1.46); Thyroid Stim Hormone (TSH) 0.93 uIU/mL (0.358-3.74); Triglycerides 176 mg/dL; Very Low Density Lipoprotein 35 mg/dL (5-40)
[2023-02-01 13:22] LABS: Vitamin D,25 Hydroxy 74.4 ng/mL
== END | disposition home or self-care (01) ==
LOC: BIMLAB 09:27
PROVIDERS: PCP Internal Medicine; Referring Provider Internal Medicine; Visit Provider Internal Medicine
DX: E05.90 Thyrotoxicosis, unspecified without thyrotoxic crisis or storm (principal); E11.65 Type 2 diabetes mellitus with hyperglycemia; C73 Malignant neoplasm of thyroid gland; E66.9 Obesity, unspecified; E03.9 Hypothyroidism, unspecified; I10 Essential (primary) hypertension; I65.22 Occlusion and stenosis of left carotid artery; E78.5 Hyperlipidemia, unspecified; E55.9 Vitamin D deficiency, unspecified
CPT/HCPCS: 36415; 80053; 80061; 82306; 83036; 84439; 84443; 84481; 85025

== ENCOUNTER → 2023-03-09 | Outpatient (CLI) | payer MEDICARE, OTHER, SELFPAY ==
--- NOTE | 2023-03-09 09:05 | CDU_ITS ---
Reason For Study: Carotid Artery Stenosis Rt. Velocities/BP Lt. Velocities/BP Prox CCA 104/20 cm/sec. Prox CCA 105/19 cm/sec. Mid CCA 117/17 cm/sec. Mid CCA 200/29 cm/sec. Dist CCA 93/18 cm/sec. Dist CCA 110/20 cm/sec. Prox ICA 97/23 cm/sec. Prox ICA 100/18 cm/sec. Mid ICA 102/23 cm/sec. Mid ICA 107/23 cm/sec. Dist ICA 100/29 cm/sec. Dist ICA 113/30 cm/sec. Rt. ICA/CCA = 0.9. Lt. ICA/CCA = 0.6. Prox ECA 110/8 cm/sec. Prox ECA 124/5 cm/sec. Rt. Vert. 93/20 cm/sec. Lt. Vert. 46/10 cm/sec. Right Extracranial There is heterogeneous, irregular atherosclerotic plaque noted in the right common carotid artery. There is heterogeneous, irregular atherosclerotic plaque noted in the right internal carotid artery. There is no significant atherosclerotic plaque noted in the right external carotid artery. Antegrade flow is noted in the right vertebral artery. Left Extracranial There is heterogeneous, irregular atherosclerotic plaque noted in the left common carotid artery. There is heterogeneous, smooth atherosclerotic plaque noted in the left internal carotid artery. There is intimal thickening but no significant atherosclerotic plaque noted in the left external carotid artery. Antegrade flow is noted in the left vertebral artery. Procedure Carotid Duplex [id number]. This is a Carotid Duplex examination using B-mode, color flow and specral Doppler. Exam performed in department. VL/Carotid Duplex Ultrasound Interpretation Summary Irregular calcific plaque with shadowing at the proximal right internal carotid artery with less than 50% stenosis Less than 50% stenosis right external carotid artery Irregular calcific plaque with likely shallow plaque ulceration in the left mid common carotid Postoperative changes of the left carotid bulb and proximal internal carotid ar brock with less than 50% stenosis Less than 50% stenosis left external carotid artery Patent antegrade vertebrals bilaterally Ordering Physician: Celia Bailon Referring Physician: Ora Nam Performed By: Helen Saab, CATALINA, RVT
== END | disposition home or self-care (01) ==
LOC: CVS 09:04
PROVIDERS: PCP Internal Medicine; Referring Provider Physician Assistant; Visit Provider Physician Assistant
DX: I65.23 Occlusion and stenosis of bilateral carotid arteries (principal)
CPT/HCPCS: 93880

== ENCOUNTER → 2023-03-17 | Outpatient (CLI) | payer MEDICARE, OTHER, SELFPAY ==
--- NOTE | 2023-03-17 14:04 | STRESSREP ---
Stress Test Report Pharmacologic myocardial perfusion stress test. 72-year-old lady with a history of chest pain Resting EKG demonstrates sinus rhythm with a rate of 77 bpm. Resting blood pressure is 180/90 mmHg. 0.4 mg of regadenoson was infused per usual protocol followed by rapid intravenous saline flush injection. Continuous EKG monitoring was performed. The maximum heart rate was 105 bpm which was 70% of max impacted heart rate the maximum workload was 1 metabolic equivalent. At rest there were no ST or T wave changes noted to suggest ischemia and at peak infusion nonspecific ST changes were noted which did not meet the criteria for ischemia. No clinical angina is noted. The final blood pressure was 172/78 mmHg. Myocardial perfusion protocol. 15.0 mCi of technetium 99m sestamibi was injected at rest. 0.4 mg of regadenoson was infused per usual protocol. At peak infusion 44.9 mCi of technetium 99m sestamibi was injected stress images were obtained stress and rest images were reconstructed and compared in the short axis vertical long and horizontal long axis. Gated images were also obtained. Perfusion SPECT analysis: Review of the stress images demonstrate normal uptake of tracer noted in all areas of the myocardium except for portion of the anterior wall with reduced perfusion. The resting images similar demonstrated normal uptake of tracer noted in all areas of the myocardium. Mild anterior ischemia is present Gated SPECT analysis: The gated ejection fraction is 72%. Conclusion: Abnormal pharmacologic myocardial perfusion stress test. Preserved ejection fraction. Mild anterior ischemia present
== END | disposition home or self-care (01) ==
LOC: CVS 06:52
PROVIDERS: PCP Internal Medicine; Referring Provider Internal Medicine Cardiovascular Disease; Visit Provider Internal Medicine Cardiovascular Disease
DX: R07.9 Chest pain, unspecified (principal); I27.20 Pulmonary hypertension, unspecified; I48.0 Paroxysmal atrial fibrillation; I10 Essential (primary) hypertension; E78.5 Hyperlipidemia, unspecified
CPT/HCPCS: 78452; 93017; A9500; A4216; J2785

== ENCOUNTER 2023-04-05 06:51 | Day surgery (SDC) | payer MEDICARE, OTHER, SELFPAY ==
[2023-03-21 10:59] LABS: Absolute Lymphocyte Count 2.28 X10^3/uL (0.83-4.51); Absolute Neutrophil Count 6.7 X10^3/uL (2.0-7.7); Basophil# 0.08 X10^3/uL; Basophil% 0.8 % (0-1); Eosinophil# 0.44 X10^3/uL; Eosinophils% 4.2 % (0-5); Hematocrit 42.2 % (37-47); Hemoglobin 13.9 g/dL (12.0-15.0); Lymphocyte # 2.28 X10^3/ul (0.83-4.51); Lymphocyte % 21.8 % (19-41); Mean Corp Hgb Conc 32.9 g/dL (32-36); Mean Corpuscular Hgb 29.8 pg (27.0-32.0); Mean Corpuscular Volume 90.6 fL (81-99); Mean Platelet Vol. 9.9 fl (6.2-12.0); Monocyte# 0.94 X10^3/uL; NRBC Flagged by Analyzer 0 % (0-5); Neutrophil % 63.8 % (47-70); Platelet Count 296 K/mm3 (150-450); RBC Distribution Width CV 13.1 % (11.6-14.6); RBC Distribution Width SD 42.9 fl (35.1-43.9); Red Blood Count 4.66 M/mm3 (4.2-5.4); White Blood Count 10.5 K/mm3 (4.4-11.0)
[2023-03-21 11:51] LABS: Anion Gap 6 (5-15); BUN 21 mg/dL (7-18); BUN/Creat Ratio 30.8 RATIO (10-20); Calcium,Total 9.1 mg/dL (8.5-10.1); Chloride 100 mmol/L (98-107); Creatinine, Serum 0.68 mg/dL (0.55-1.02); EST Glomerular Filtration Rate 90 mL/min (>60); Est Glom Filt Rate - Afr Amer 109 mL/min (>60); Glucose 147 mg/dL (74-106); Potassium 3.9 mmol/L (3.5-5.1); Sodium Level 137 mmol/L (136-145)
[2023-04-04 11:09] VITALS: BMI 46.3
--- NOTE | 2023-04-05 09:08 | CL.D_ITS ---
Patient Name: ANNIKA DOWNEY Study Date: 04/05/2023 Performing: Titi Calderon MD Ht: 62 inches 157.48 cm : 1950 Wt: 253 lbs 114.76 kg Age: 72 Gender: female BSA: 2.11 PROCEDURE(S) PERFORMED [id number])LHC/COR/LV CLINICAL PROFILE AND INDICATIONS Indications: Suspected CAD Heart Failure: None Stress/Imaging Date: 03/14/23Stress Test with SPECT MPI: Positive Low Risk CAD Presentations: Unstable angina. CONCLUSIONS Single-vessel diagonal stenosis and mild LAD disease and mild circumflex disease and mild RCA disease. RECOMMENDATIONS Medical therapy DESCRIPTION OF PROCEDURE The patient arrived to the procedure lab. The risks and benefits of the procedure as well as a full description of our services here and current unavailability of surgical backup were fully explained to the patient and/or their significant other prior to the catheterization. The Timeout was completed, verifying the correct patient and procedure. The patient's procedural site was prepped and draped in the usual fashion. Local anesthetic was given subcutaneously to right radial region with Lidocaine 2%. Using a modified Seldinger technique, arterial access was obtained via the right radial artery, a 6Fr sheath was inserted. Right Coronary Artery selective angiography was then performed in multiple views using a 5 Fr. 4.0 [place] catheter. Left Coronary Artery selective angiography was performed in multiple views using a 5 Fr. JL3.5 catheter. Left Ventriculography was performed in BARLOW projection using a 5 Fr. Pigtail catheter. LV to AO pullback pressures were then recorded.The arterial sheath was pulled and a TR Band was applied for hemostasis CORONARY ANGIOGRAPHY DOMINANCE: Right Dominant LEFT HEART ASSESSMENT Left Ventricular Ejection Fraction: by LV Gram 75 % Normal LV wall motion Normal Left Ventricular systolic function LEFT MAIN: No significant disease noted LEFT ANTERIOR DESCENDING ARTERY: Mild luminal irregularities less than 30% DIAGONAL 1: Ostial - 80 % Stenosis CIRCUMFLEX ARTERY: Mild luminal irregularities less than 30% RIGHT CORONARY ARTERY: Mild luminal irregularities less than 30% COMPLICATIONS No Complications PROCEDURE MEDICATIONS Fentanyl 50 mcg IV Versed 1 mg IV Versed 1 mg IV Oxygen: 2 L/min via nasal cannula Heparin given IA 04/05/2023 08:30:03 Verapamil 2.5mg, Ntg 100mcgs, 3000 units of Heparin given IA 04/05/2023 08:30:03 SUMMARY OF HEMODYNAMIC DATA Time AIR REST ECG 07:18:00 AO 141/67 (97) SA 08:37:37 LV 145/23, 26 08:50:01 LV 123/19, 27 08:50:12 LV 123/19, 38 08:51:04 LV 113/18, 22 08:51:19 LVp 115/18, 56 08:51:25 AOp 144/69 (100) 08:51:30 Signed By Titi Calderon MD On 04/05/2023 09:07:21 Titi Calderon MD
== END 2023-04-05 10:35 | disposition home or self-care (01) ==
LOC: CLSP 06:53
PROVIDERS: Nurse Practitioner Gerontology; PCP Internal Medicine; Referring Provider Internal Medicine Cardiovascular Disease; Visit Provider Internal Medicine Cardiovascular Disease
DX: I25.110 Atherosclerotic heart disease of native coronary artery with unstable angina pectoris (principal); I48.0 Paroxysmal atrial fibrillation; E11.9 Type 2 diabetes mellitus without complications; E78.5 Hyperlipidemia, unspecified; I10 Essential (primary) hypertension; K21.9 Gastro-esophageal reflux disease without esophagitis; Z79.899 Other long term (current) drug therapy; Z79.82 Long term (current) use of aspirin; J45.909 Unspecified asthma, uncomplicated; R94.39 Abnormal result of other cardiovascular function study
CPT/HCPCS: 36415; 80048; 85025; 93458; 99152; 99153; J7040; C1769; C1894; Q9967

== ENCOUNTER → 2023-05-02 | Outpatient (CLI) | payer MEDICARE, OTHER, SELFPAY ==
[2023-05-02 12:58] LABS: Thyroid Stim Hormone (TSH) 0.42 uIU/mL (0.358-3.74)
[2023-05-05 08:10] LABS: Anti-Thyroglobulin AB < 1.0 IU/mL (0.0-0.9); Thyroglobulin, Serum Qt. 0.2 ng/mL (1.5-38.5)
== END | disposition home or self-care (01) ==
LOC: MTLAB 10:21
PROVIDERS: PCP Internal Medicine; Referring Provider Internal Medicine Endocrinology, Diabetes & Metabolism; Visit Provider Internal Medicine Endocrinology, Diabetes & Metabolism
DX: C73 Malignant neoplasm of thyroid gland (principal); I10 Essential (primary) hypertension
CPT/HCPCS: 36415; 84432; 84443; 86800

== ENCOUNTER → 2023-07-06 | Outpatient (CLI) | payer MEDICARE, OTHER, SELFPAY ==
[2023-07-06 15:17] LABS: Absolute Lymphocyte Count 2.66 X10^3/uL (0.83-4.51); Absolute Neutrophil Count 4.9 X10^3/uL (2.0-7.7); Basophil# 0.06 X10^3/uL; Basophil% 0.7 % (0-1); Eosinophil# 0.23 X10^3/uL; Eosinophils% 2.7 % (0-5); Hemoglobin 14.5 g/dL (12.0-15.0); Lymphocyte # 2.66 X10^3/ul (0.83-4.51); Mean Corp Hgb Conc 34.5 g/dL (32-36); Mean Corpuscular Hgb 30.7 pg (27.0-32.0); Mean Corpuscular Volume 88.8 fL (81-99); Mean Platelet Vol. 9.6 fl (6.2-12.0); Monocyte# 0.75 X10^3/uL; Monocyte% 8.7 % (0-10); NRBC Flagged by Analyzer 0 % (0-5); Neutrophil # 4.85 X10^3/uL (2.7-7.7); Neutrophil % 56.6 % (47-70); Platelet Count 287 K/mm3 (150-450); RBC Distribution Width CV 13.2 % (11.6-14.6); RBC Distribution Width SD 43.1 fl (35.1-43.9); Red Blood Count 4.73 M/mm3 (4.2-5.4); White Blood Count 8.6 K/mm3 (4.4-11.0)
[2023-07-06 16:29] LABS: Vitamin B12 425 pg/mL (211-911)
[2023-07-06 16:34] LABS: Microalbumin,Random Urine < 5.0 mg/L (NO RANGE EST.)
[2023-07-06 16:35] LABS: ALB/GLOB Ratio 0.9 RATIO (0.9-2.4); AST(SGOT) 15 U/L (15-37); Alanine Aminotransfer ALT/SGPT 23 U/L (13-56); Albumin, Serum 3.6 g/dL (3.2-5.0); Alkaline Phosphatase 76 U/L (45-117); Anion Gap 6 (5-15); BUN 16 mg/dL (7-18); BUN/Creat Ratio 23.7 RATIO (10-20); Calcium,Total 9.1 mg/dL (8.5-10.1); Chloride 100 mmol/L (98-107); Cholesterol 246 mg/dL (200); Creatinine, Serum 0.67 mg/dL (0.55-1.02); EST Glomerular Filtration Rate 91 mL/min (>60); Est Glom Filt Rate - Afr Amer 111 mL/min (>60); Globulin 4.1 g/dL (2.2-4.2); Glucose 102 mg/dL (74-106); High Density Lipoprotein 57 mg/dL; Potassium 3.7 mmol/L (3.5-5.1); Protein, Total 7.7 g/dL (6.4-8.2); Sodium Level 136 mmol/L (136-145); T4 Free Direct 1.61 ng/dL (0.76-1.46); Thyroid Stim Hormone (TSH) 0.81 uIU/mL (0.358-3.74); Triglycerides 171 mg/dL; Very Low Density Lipoprotein 34 mg/dL (5-40)
[2023-07-08 17:07] LABS: Anti-Thyroglobulin AB < 1.0 IU/mL (0.0-0.9); Thyroglobulin, Serum Qt. 0.3 ng/mL (1.5-38.5)
== END | disposition home or self-care (01) ==
LOC: MTLAB 13:40
PROVIDERS: PCP Internal Medicine; Referring Provider Internal Medicine Endocrinology, Diabetes & Metabolism; Visit Provider Internal Medicine Endocrinology, Diabetes & Metabolism
DX: E11.65 Type 2 diabetes mellitus with hyperglycemia (principal); E78.5 Hyperlipidemia, unspecified; I10 Essential (primary) hypertension; E89.0 Postprocedural hypothyroidism; E55.9 Vitamin D deficiency, unspecified
CPT/HCPCS: 36415; 80053; 80061; 82043; 82306; 82570; 82607; 84432; 84439; 84443; 85025; 86800

== ENCOUNTER → 2023-07-20 | Outpatient (CLI) | payer MEDICARE, OTHER, SELFPAY ==
[2023-07-20 13:30] LABS: Erythrocyte Sedimentation Rate 18 mm/hr (0-30)
[2023-07-20 13:43] LABS: CRP 3.22 mg/L (0.0-3.0)
[2023-07-20 14:20] LABS: Anion Gap 7 (5-15); BUN 22 mg/dL (7-18); BUN/Creat Ratio 24.6 RATIO (10-20); Calcium,Total 9.1 mg/dL (8.5-10.1); Chloride 98 mmol/L (98-107); Creatinine, Serum 0.89 mg/dL (0.55-1.02); EST Glomerular Filtration Rate 66 mL/min (>60); Est Glom Filt Rate - Afr Amer 80 mL/min (>60); Glucose 173 mg/dL (74-106); Sodium Level 134 mmol/L (136-145)
[2023-07-22 13:07] LABS: ANTINUCLEAR ANTIBODIES DIRECT Negative (Negative)
== END | disposition home or self-care (01) ==
PROVIDERS: PCP Internal Medicine; Referring Provider Nurse Practitioner Gerontology; Visit Provider Nurse Practitioner Gerontology
DX: R53.83 Other fatigue (principal); E11.9 Type 2 diabetes mellitus without complications; R07.9 Chest pain, unspecified; E66.9 Obesity, unspecified; E03.9 Hypothyroidism, unspecified; I10 Essential (primary) hypertension; K21.9 Gastro-esophageal reflux disease without esophagitis; E78.5 Hyperlipidemia, unspecified; R06.09 Other forms of dyspnea
CPT/HCPCS: 36415; 80048; 83880; 85652; 86038; 86140; 86225; 86235

== ENCOUNTER → 2023-08-05 | Outpatient (CLI) | payer MEDICARE, OTHER, SELFPAY ==
--- NOTE | 2023-08-05 08:04 | ECHOCS_ITS ---
Reason For Study: Dyspnea/SOB Procedure This was a 2D Doppler, Color Flow transthoracic echocardiogram. The study was technically difficult. Contrast injection was performed. Exam performed in department. Left Ventricle Normal LV size. Left ventricular systolic function is normal. The estimated ejection fraction is 60 %. Stage 1 diastolic dysfunction. No regional wall motion abnormalities noted. Right Ventricle Normal RV size. Normal systolic function. Atria Normal left atrium. Normal right atrium. Mitral Valve There is moderate mitral annular calcification. Tricuspid Valve Normal tricuspid valve. Aortic Valve Trisinus/trileaflet aortic valve. Mild aortic stenosis. Great Vessels Normal aortic root. Pericardium/Pleural No pericardial effusion. Medication 22 gauge I.V. with prn adaptor inserted into right arm. Diluted definity 5ml given slow IV push to enhance endocardial definition. MMode/2D Measurements & Calculations LVIDd: 3.7 cm IVSd: 0.80 cm LVOT diam: 2.0 cm LVIDs: 2.4 cm LVPWd: 1.0 cm LVOT area: 3.3 cm2 FS: 35.7 % Ao root diam: 2.9 cm LAV(MOD-bp): 50.9 ml LA A4 area: 19.4 cm2 LA dimension: 3.7 cm LAV(MOD-bp) Indexed: 24.1 ml/m2 LAV(MOD-sp2): 50.0 ml LAV(MOD-sp4): 52.1 ml RA A4 area: 17.6 cm2 Time Measurements MV dec time: 0.23 sec Doppler Measurements & Calculations MV E max minor: 118.2 cm/sec Lat Peak E' Minor: 8.4 cm/sec Med Peak E' Minor: 7.5 cm/sec MV A max minor: 126.4 cm/sec E/E' lat: 14.1 E/E' med: 15.8 MV E/A: 0.94 MV V2 max: 137.1 cm/sec MV P1/2t max minor: 127.5 cm/sec Ao V2 max: 199.6 cm/sec MV max P.5 mmHg MV P1/2t: 80.9 msec Ao max P.9 mmHg MV V2 mean: 87.1 cm/sec MV dec slope: 461.7 cm/sec2 Ao V2 mean: 149.6 cm/sec MV mean P.4 mmHg Ao mean P.8 mmHg MV V2 VTI: 42.3 cm MVA(P1/2t): 2.7 cm2 Ao V2 VTI: 54.4 cm MVA(VTI): 1.9 cm2 AV (velocity ratio): 0.46 ALFRED(I,D): 1.5 cm2 ALFRED(V,D): 1.5 cm2 LV V1 max: 91.0 cm/sec SV(LVOT): 82.5 ml PA V2 max: 72.7 cm/sec LV V1 max P.3 mmHg LV V1 mean P.9 mmHg LV V1 mean: 64.8 cm/sec LV V1 VTI: 25.0 cm ECHO/Echo Complete W/ Contrast Interpretation Summary Normal LV size. Left ventricular systolic function is normal. The estimated ejection fraction is 60 %. Stage 1 diastolic dysfunction. Contrast injection was performed. Ordering Physician: Nicol Adkins Referring Physician: Nicol Adkins Performed By: Vinod Naranjo RCS
== END | disposition home or self-care (01) ==
PROVIDERS: PCP Internal Medicine; Referring Provider Nurse Practitioner Gerontology; Visit Provider Nurse Practitioner Gerontology
DX: R06.09 Other forms of dyspnea (principal)
CPT/HCPCS: 93306; Q9957; A4216; C8929

== ENCOUNTER → 2023-10-07 | Outpatient (CLI) | payer MEDICARE, OTHER, SELFPAY ==
--- NOTE | 2023-10-07 12:19 | RAD_ITS ---
STUDY: X-RAY CHEST REASON FOR EXAM: Female, 73 years old. Cough, chest congestion TECHNIQUE: PA and lateral views of the chest. COMPARISON: 12/12/2022 FINDINGS: The lungs are clear and expanded. There is no demonstrated pleural abnormality. Normal size heart. Normal mediastinum and jennifer. Normal visualized pulmonary arteries. There is atherosclerotic calcification of the aortic arch with tortuosity. Normal visualized thoracic spine. Normal visualized ribs, clavicles, and shoulders. There is no demonstrated abnormality of the visualized soft tissue structures of the upper abdomen. RAD/Chest PA and Lateral IMPRESSION: No acute pulmonary process Electronically Signed: Des Fung MD at 17:48 EST ,
== END | disposition home or self-care (01) ==
LOC: RAD 12:13
PROVIDERS: PCP Internal Medicine; Referring Provider Internal Medicine; Visit Provider Internal Medicine
DX: R06.09 Other forms of dyspnea (principal); R05.9 Cough, unspecified; R09.89 Other specified symptoms and signs involving the circulatory and respiratory systems
CPT/HCPCS: 71046

== ENCOUNTER → 2023-10-21 | Outpatient (CLI) | payer MEDICARE, OTHER, SELFPAY ==
[2023-10-21 07:26] LABS: Absolute Lymphocyte Count 3.07 X10^3/uL (0.83-4.51); Absolute Neutrophil Count 6.3 X10^3/uL (2.0-7.7); Basophil# 0.09 X10^3/uL; Basophil% 0.8 % (0-1); Eosinophil# 0.45 X10^3/uL; Eosinophils% 4.2 % (0-5); Hematocrit 38.9 % (37-47); Lymphocyte # 3.07 X10^3/ul (0.83-4.51); Lymphocyte % 28.3 % (19-41); Mean Corp Hgb Conc 33.4 g/dL (32-36); Mean Corpuscular Hgb 29.7 pg (27.0-32.0); Mean Platelet Vol. 9.1 fl (6.2-12.0); Monocyte# 0.91 X10^3/uL; Monocyte% 8.4 % (0-10); NRBC Flagged by Analyzer 0 % (0-5); Neutrophil # 6.26 X10^3/uL (2.7-7.7); Neutrophil % 57.8 % (47-70); Platelet Count 252 K/mm3 (150-450); RBC Distribution Width SD 42.5 fl (35.1-43.9); Red Blood Count 4.37 M/mm3 (4.2-5.4); White Blood Count 10.8 K/mm3 (4.4-11.0)
[2023-10-21 08:05] LABS: BNP,B-Type NATRIURETIC PEPTIDE 49.1 pg/mL (0-100)
[2023-10-21 08:12] LABS: AST(SGOT) 13 U/L (15-37); Alanine Aminotransfer ALT/SGPT 20 U/L (13-56); Albumin, Serum 3.5 g/dL (3.2-5.0); Alkaline Phosphatase 77 U/L (45-117); Anion Gap 4 (5-15); BUN 18 mg/dL (7-18); BUN/Creat Ratio 22.2 RATIO (10-20); Bilirubin, Direct 0.13 mg/dL (0.00-0.30); Chloride 100 mmol/L (98-107); Cholesterol 177 mg/dL (200); Creatinine, Serum 0.81 mg/dL (0.55-1.02); EST Glomerular Filtration Rate 74 mL/min (>60); Est Glom Filt Rate - Afr Amer 90 mL/min (>60); Globulin 3.9 g/dL (2.2-4.2); Glucose 172 mg/dL (74-106); High Density Lipoprotein 57 mg/dL; Protein, Total 7.4 g/dL (6.4-8.2); Sodium Level 135 mmol/L (136-145); Thyroid Stim Hormone (TSH) 1.15 uIU/mL (0.358-3.74); Triglycerides 157 mg/dL; Very Low Density Lipoprotein 31 mg/dL (5-40)
== END | disposition home or self-care (01) ==
LOC: LAB 07:15
PROVIDERS: PCP Internal Medicine; Referring Provider Nurse Practitioner Gerontology; Visit Provider Nurse Practitioner Gerontology
DX: E78.5 Hyperlipidemia, unspecified (principal); R06.09 Other forms of dyspnea; R53.83 Other fatigue
CPT/HCPCS: 36415; 80048; 80061; 80076; 83880; 84443; 85025

== ENCOUNTER → 2024-05-15 | Outpatient (CLI) | payer MEDICARE, OTHER, SELFPAY ==
[2024-05-15 12:20] LABS: Absolute Lymphocyte Count 2.24 X10^3/uL (0.83-4.51); Absolute Neutrophil Count 5.5 X10^3/uL (2.0-7.7); Basophil# 0.06 X10^3/uL; Basophil% 0.7 % (0-1); Eosinophil# 0.25 X10^3/uL; Eosinophils% 2.8 % (0-5); Hematocrit 39.4 % (37-47); Hemoglobin 13.4 g/dL (12.0-15.0); Lymphocyte # 2.24 X10^3/ul (0.83-4.51); Lymphocyte % 25.4 % (19-41); Mean Corpuscular Hgb 31.1 pg (27.0-32.0); Mean Corpuscular Volume 91.4 fL (81-99); Monocyte# 0.73 X10^3/uL; Monocyte% 8.3 % (0-10); NRBC Flagged by Analyzer 0 % (0-5); Neutrophil # 5.51 X10^3/uL (2.7-7.7); Neutrophil % 62.3 % (47-70); Platelet Count 273 K/mm3 (150-450); RBC Distribution Width CV 13.4 % (11.6-14.6); Red Blood Count 4.31 M/mm3 (4.2-5.4); White Blood Count 8.8 K/mm3 (4.4-11.0)
[2024-05-15 12:24] LABS: Vitamin D,25 Hydroxy 60.4 ng/mL
[2024-05-15 13:12] LABS: ALB/GLOB Ratio 0.9 RATIO (0.9-2.4); AST(SGOT) 13 U/L (15-37); Alanine Aminotransfer ALT/SGPT 19 U/L (13-56); Albumin, Serum 3.8 g/dL (3.2-5.0); Alkaline Phosphatase 65 U/L (45-117); Anion Gap 8 (5-15); BUN 18 mg/dL (7-18); BUN/Creat Ratio 18.4 RATIO (10-20); Calcium,Total 9.5 mg/dL (8.5-10.1); Chloride 102 mmol/L (98-107); Cholesterol 164 mg/dL (200); Creatinine, Serum 0.98 mg/dL (0.55-1.02); EST Glomerular Filtration Rate 59 mL/min (>60); Est Glom Filt Rate - Afr Amer 72 mL/min (>60); Free T3 1.9 pg/mL (2.18-3.98); Globulin 4.3 g/dL (2.2-4.2); Glucose 153 mg/dL (74-106); High Density Lipoprotein 62 mg/dL; Potassium 4.1 mmol/L (3.5-5.1); Protein, Total 8.1 g/dL (6.4-8.2); Sodium Level 135 mmol/L (136-145); T4 Free Direct 1.26 ng/dL (0.76-1.46); Triglycerides 124 mg/dL; Very Low Density Lipoprotein 25 mg/dL (5-40)
[2024-05-15 13:21] LABS: Hemoglobin A1c 6.2 % (3.8-5.6)
== END | disposition home or self-care (01) ==
LOC: MTLAB 09:27
PROVIDERS: PCP Internal Medicine; Referring Provider Internal Medicine; Visit Provider Internal Medicine
DX: I25.119 Atherosclerotic heart disease of native coronary artery with unspecified angina pectoris (principal); I48.0 Paroxysmal atrial fibrillation; E11.65 Type 2 diabetes mellitus with hyperglycemia; K21.00 Gastro-esophageal reflux disease with esophagitis, without bleeding; E78.5 Hyperlipidemia, unspecified; E89.0 Postprocedural hypothyroidism; I10 Essential (primary) hypertension; E55.9 Vitamin D deficiency, unspecified; Z13.220 Encounter for screening for lipoid disorders
CPT/HCPCS: 36415; 80053; 80061; 82306; 83036; 83735; 84439; 84443; 84481; 85025

== ENCOUNTER → 2024-05-17 | Outpatient (CLI) | payer MEDICARE, OTHER, SELFPAY ==
--- NOTE | 2024-05-17 09:55 | CDU_ITS ---
Reason For Study: CAROTID STENOSIS Rt. Velocities/BP Lt. Velocities/BP Prox CCA 101.1/15.1 cm/sec. Prox CCA 124.2/18.9 cm/sec. Mid CCA 118.2/20.0 cm/sec. Mid CCA 161.6/18.9 cm/sec. Dist CCA 94.9/16.3 cm/sec. Dist CCA 137.4/18.9 cm/sec. Prox ICA 94.9/15.1 cm/sec. Prox ICA 96.6/18.1 cm/sec. Mid ICA 93.7/13.9 cm/sec. Mid ICA 111.2/21.7 cm/sec. Dist ICA 121.1/11.8 cm/sec. Dist ICA 124.0/27.2 cm/sec. Rt. ICA/CCA = 121.1/118.2=1.0. Lt. ICA/CCA = 124.0/161.6=0.8. Prox ECA 97.4/11.4 cm/sec. Prox ECA 113.3/12.3 cm/sec. Rt. Vert. 47.8/11.9 cm/sec. Lt. Vert. 70.6/18.9 cm/sec. Right Extracranial There is heterogeneous, irregular atherosclerotic plaque noted in the right common carotid artery. There is heterogeneous, irregular atherosclerotic plaque noted in the right internal carotid artery. There is intimal thickening but no significant atherosclerotic plaque noted in the right external carotid artery. Antegrade flow is noted in the right vertebral artery. Left Extracranial There is heterogeneous, smooth atherosclerotic plaque noted in the left common carotid artery. There is heterogeneous, irregular atherosclerotic plaque noted in the left internal carotid artery. There is homogeneous, irregular atherosclerotic plaque noted in the left external carotid artery. Antegrade flow is noted in the left vertebral artery. Procedure Carotid Duplex [id number]. This is a Carotid Duplex examination using B-mode, color flow and specral Doppler. The study was technically difficult. Exam performed in department. VL/Carotid Duplex Ultrasound Interpretation Summary Irregular calcific plaque at the proximal right internal carotid artery with le ss than 50% stenosis Less than 50% stenosis right external carotid artery Widely patent postoperative changes of the left carotid bulb and proximal inter nal carotid artery with less than 50% stenosis Less than 50% stenosis left external carotid artery Patent and antegrade vertebral arteries bilaterally Ordering Physician: Rusty Sawyer Referring Physician: Ora Nam Performed By: Kelle Chavira, CATALINA, RVT
== END | disposition home or self-care (01) ==
LOC: CVS 09:52
PROVIDERS: PCP Internal Medicine; Referring Provider Surgery; Visit Provider Surgery
DX: R07.9 Chest pain, unspecified (principal); I65.22 Occlusion and stenosis of left carotid artery
CPT/HCPCS: 93880

== ENCOUNTER → 2024-05-22 | Outpatient (CLI) | payer MEDICARE, OTHER, SELFPAY ==
[2024-05-22 13:37] LABS: Anion Gap 6 (5-15); BUN 20 mg/dL (7-18); BUN/Creat Ratio 23.6 RATIO (10-20); Calcium,Total 9.3 mg/dL (8.5-10.1); Chloride 102 mmol/L (98-107); Creatinine, Serum 0.85 mg/dL (0.55-1.02); EST Glomerular Filtration Rate 70 mL/min (>60); Est Glom Filt Rate - Afr Amer 85 mL/min (>60); Glucose 177 mg/dL (74-106); Potassium 4.1 mmol/L (3.5-5.1); Sodium Level 136 mmol/L (136-145)
[2024-05-22 13:39] LABS: BNP,B-Type NATRIURETIC PEPTIDE 43.1 pg/mL (0-100)
== END | disposition home or self-care (01) ==
LOC: LAB 12:05
PROVIDERS: PCP Internal Medicine; Referring Provider Nurse Practitioner Gerontology; Visit Provider Nurse Practitioner Gerontology
DX: R06.09 Other forms of dyspnea (principal)
CPT/HCPCS: 36415; 80048; 83880

== ENCOUNTER → 2024-06-01 | Outpatient (CLI) | payer MEDICARE, OTHER, SELFPAY ==
--- NOTE | 2024-06-01 16:13 | STRESSREP ---
Stress Test Report Pharmacologic myocardial perfusion stress test. 73-year-old lady with a history of dyspnea on exertion Resting EKG demonstrates sinus rhythm with a rate of 65 bpm. Resting blood pressure is 128/60 mmHg. 0.4 mg of regadenoson was infused per usual protocol followed by rapid intravenous saline flush injection. Continuous EKG monitoring was performed. The maximum heart rate was 78 bpm which was 52% of max impacted heart rate the maximum workload was 1 metabolic equivalent. At rest there were no ST or T wave changes noted to suggest ischemia and at peak infusion nonspecific ST changes were noted which did not meet the criteria for ischemia. No clinical angina is noted. The final blood pressure was 116/58 mmHg. Myocardial perfusion protocol. 15 mCi of technetium 99m sestamibi was injected at rest. 0.4 mg of regadenoson was infused per usual protocol. At peak infusion 45 mCi of technetium 99m sestamibi was injected stress images were obtained stress and rest images were reconstructed and compared in the short axis vertical long and horizontal long axis. Gated images were also obtained. Perfusion SPECT analysis: Review of the stress images demonstrate normal uptake of tracer noted in all areas of the myocardium. The resting images similar demonstrated normal uptake of tracer noted in all areas of the myocardium. No areas of reversibility are noted to suggest ischemia and no previous infarct is noted. Gated SPECT analysis: The gated ejection fraction is 65%. Conclusion: Normal pharmacologic myocardial perfusion stress test. Preserved ejection fraction.
== END | disposition home or self-care (01) ==
PROVIDERS: PCP Internal Medicine; Referring Provider Nurse Practitioner Gerontology; Visit Provider Nurse Practitioner Gerontology
DX: R07.9 Chest pain, unspecified (principal)
CPT/HCPCS: 78452; 93017; A9500; A4216; J2785

== ENCOUNTER → 2024-08-03 | Outpatient (CLI) | payer MEDICARE, OTHER, SELFPAY ==
--- NOTE | 2024-08-03 14:56 | CT_ITS ---
STUDY: CT ABDOMEN AND PELVIS WITH CONTRAST REASON FOR EXAM: Female, 73 years old. Epigastric pain -- PO and IV contrast RADIATION DOSAGE (If Supplied By Facility): CTDIvol = ( 16.65 ) mGy, DLP = ( 1138.69 ) mGycm TECHNIQUE: Oral and amp; IV Readi-CAT and amp; 100mL Isovue-300 was administered. Transaxial images were obtained from the dome of the diaphragm to the symphysis pubis. Multiplanar coronal and sagittal images were reformatted. The protocol utilizes one or more of the following dose reduction techniques: automated exposure control, adjustment of mA and/or kV according to patient size,and/or use of iterative reconstruction technique. COMPARISON: Prior study dated: 06/03/2021 FINDINGS: The visualized lung bases are unremarkable. The visualized portions of the heart are within normal limits. Mild hepatic steatosis. No focal lesion is seen. Normal gallbladder and extrahepatic biliary system. Normal spleen. Normal pancreas. Normal bilateral adrenal glands. There is a small hiatal hernia. Normal small intestine. Mild diverticulosis of the sigmoid colon without evidence of acute diverticulitis. Fecal retention. There is non-visualization of the appendix. There is diffuse atherosclerotic calcification of the abdominal aorta, without a demonstrated aneurysm. No retroperitoneal adenopathy. Normal right kidney. Normal left kidney. Normal urinary bladder. There is absence of the uterus consistent with a prior hysterectomy. There is a small umbilical hernia containing fat. No demonstrated acute osseous changes. CT/Abdomen/Pelvis WITH Contrast IMPRESSION: 1. No focal acute inflammatory process. 2. Mild hepatic steatosis. 3. Small hiatal hernia. Electronically Signed: John Frost MD at 15:58 EDT ,
[2024-08-03 15:35] LABS: CREATININE FINGERSTICK < 1.0 mg/dL (0.55-1.02); EGFR FINGERSTICK > 60.0000 mL/min (>60)
== END | disposition home or self-care (01) ==
LOC: CT 14:56
PROVIDERS: PCP Internal Medicine; Referring Provider Surgery; Visit Provider Surgery
DX: R10.13 Epigastric pain (principal)
CPT/HCPCS: 74177; Q9967

== ENCOUNTER → 2024-08-15 | Outpatient (CLI) | payer MEDICARE, OTHER, SELFPAY ==
[2024-08-15 17:45] LABS: Absolute Lymphocyte Count 2.15 X10^3/uL (0.83-4.51); Absolute Neutrophil Count 5.9 X10^3/uL (2.0-7.7); Basophil# 0.05 X10^3/uL; Basophil% 0.5 % (0-1); Eosinophil# 0.28 X10^3/uL; Eosinophils% 3.1 % (0-5); Hematocrit 38.8 % (37-47); Hemoglobin 12.7 g/dL (12.0-15.0); Lymphocyte # 2.15 X10^3/ul (0.83-4.51); Lymphocyte % 23.4 % (19-41); Mean Corp Hgb Conc 32.7 g/dL (32-36); Mean Corpuscular Volume 94.6 fL (81-99); Mean Platelet Vol. 9.6 fl (6.2-12.0); Monocyte# 0.81 X10^3/uL; Monocyte% 8.8 % (0-10); NRBC Flagged by Analyzer 0 % (0-5); Neutrophil # 5.85 X10^3/uL (2.7-7.7); Neutrophil % 63.8 % (47-70); Platelet Count 259 K/mm3 (150-450); RBC Distribution Width CV 12.8 % (11.6-14.6); RBC Distribution Width SD 44.2 fl (35.1-43.9); White Blood Count 9.2 K/mm3 (4.4-11.0)
[2024-08-15 18:07] LABS: AST(SGOT) 9 U/L (15-37); Alanine Aminotransfer ALT/SGPT 17 U/L (13-56); Albumin, Serum 3.8 g/dL (3.2-5.0); Alkaline Phosphatase 67 U/L (45-117); Anion Gap 6 (5-15); BUN 21 mg/dL (7-18); BUN/Creat Ratio 26.5 RATIO (10-20); Calcium,Total 9.5 mg/dL (8.5-10.1); Chloride 101 mmol/L (98-107); Creatinine, Serum 0.79 mg/dL (0.55-1.02); EST Glomerular Filtration Rate 76 mL/min (>60); Est Glom Filt Rate - Afr Amer 92 mL/min (>60); Free T3 1.7 pg/mL (2.18-3.98); Globulin 3.8 g/dL (2.2-4.2); Glucose 140 mg/dL (74-106); Potassium 4.5 mmol/L (3.5-5.1); Protein, Total 7.6 g/dL (6.4-8.2); Sodium Level 136 mmol/L (136-145); T4 Free Direct 1.18 ng/dL (0.76-1.46)
== END | disposition home or self-care (01) ==
LOC: MTLAB 14:37
PROVIDERS: PCP Internal Medicine; Referring Provider Internal Medicine; Visit Provider Internal Medicine
DX: E11.65 Type 2 diabetes mellitus with hyperglycemia (principal); E78.5 Hyperlipidemia, unspecified; I10 Essential (primary) hypertension; E89.0 Postprocedural hypothyroidism; I25.119 Atherosclerotic heart disease of native coronary artery with unspecified angina pectoris
CPT/HCPCS: 36415; 80053; 83036; 84439; 84443; 84481; 85025

== ENCOUNTER 2024-09-11 06:22 | Day surgery (SDC) | payer MEDICARE, OTHER, SELFPAY ==
[2024-09-11] VITALS (7 sets, daily range): BP systolic 94–128; BP diastolic 42–62; PULSE 63–70; RESP 16; TEMP 36.1–36.6; O2SAT 96–99; BMI 47.0
[2024-09-11 07:14] LABS: Bedside Glucose 150 mg/dL (74-106)
== END 2024-09-11 08:07 | disposition home or self-care (01) ==
LOC: EN 06:22 → AC 06:23
PROVIDERS: PCP Internal Medicine; Referring Provider Internal Medicine; Visit Provider Surgery
PROC: 0DJD8ZZ Inspection of Lower Intestinal Tract, Via Natural or Artificial Opening Endoscopic (ICD-10-PCS; CPT 45378; principal; 2024-09-11 07:25)
DX: K62.5 Hemorrhage of anus and rectum (principal); I48.0 Paroxysmal atrial fibrillation; E11.9 Type 2 diabetes mellitus without complications; E78.5 Hyperlipidemia, unspecified; I10 Essential (primary) hypertension; Z80.0 Family history of malignant neoplasm of digestive organs; K21.9 Gastro-esophageal reflux disease without esophagitis; J45.909 Unspecified asthma, uncomplicated; Z79.01 Long term (current) use of anticoagulants; K64.8 Other hemorrhoids; Z79.82 Long term (current) use of aspirin; Z79.899 Other long term (current) drug therapy; Z79.890 Hormone replacement therapy; Z79.85 Long-term (current) use of injectable non-insulin antidiabetic drugs; E03.9 Hypothyroidism, unspecified
CPT/HCPCS: 45378; 82962; A4216; J2405

== ENCOUNTER → 2024-10-17 | Outpatient (CLI) | payer MEDICARE, OTHER, SELFPAY ==
[2024-10-17 16:12] LABS: Free T3 2.1 pg/mL (2.18-3.98); T4 Free Direct 1.32 ng/dL (0.76-1.46); Thyroid Stim Hormone (TSH) 0.725 uIU/mL (0.358-3.740)
== END | disposition home or self-care (01) ==
LOC: MTLAB 13:55
PROVIDERS: PCP Internal Medicine; Referring Provider Internal Medicine; Visit Provider Internal Medicine
DX: E89.0 Postprocedural hypothyroidism (principal)
CPT/HCPCS: 36415; 84439; 84443; 84481

== ENCOUNTER → 2025-07-31 | Outpatient (CLI) | payer MEDICARE, OTHER, SELFPAY ==
--- NOTE | 2025-07-31 12:47 | CDU_ITS ---
Reason For Study Reason For Study: HX Lt ICA CEA Rt. Velocities/BP Lt. Velocities/BP Prox CCA 106.3/13.0 cm/sec. Prox CCA 99.0/17.9 cm/sec. Mid CCA 94.1/12.7 cm/sec. Mid CCA 83.0/17.9 cm/sec. Dist CCA 79.8/16.0 cm/sec. Dist CCA 97.7/17.9 cm/sec. Prox ICA 92.0/17.6 cm/sec. Prox ICA 87.9/21.6 cm/sec. Mid ICA 90.8/18.2 cm/sec. Mid ICA 110.0/24.1 cm/sec. Dist ICA 80.9/18.2 cm/sec. Dist ICA 72.0/16.7 cm/sec. Rt. ICA/CCA = 1.0. Lt. ICA/CCA = 1.3. Prox ECA 75.4/7.3 cm/sec. Prox ECA 63.3/2.9 cm/sec. Rt. Vert. 53.5/9.1 cm/sec. Lt. Vert. 53.5/13.0 cm/sec. Right Extracranial There is intimal thickening but no significant atherosclerotic plaque noted in the right common carotid artery. There is heterogeneous, irregular atherosclerotic plaque noted in the right internal carotid artery. There is heterogeneous, irregular atherosclerotic plaque noted in the right external carotid artery. Antegrade flow is noted in the right vertebral artery. Left Extracranial There is homogeneous, smooth atherosclerotic plaque noted in the left common carotid artery. There is homogeneous, irregular atherosclerotic plaque noted in the left internal carotid artery. HX CEA. There is heterogeneous, smooth atherosclerotic plaque noted in the left external carotid artery. Antegrade flow is noted in the left vertebral artery. Procedure Carotid Duplex [id number]. This is a Carotid Duplex examination using B-mode, color flow and specral Doppler. The exam was diagnostic. Exam performed in department. VL/Carotid Duplex Ultrasound Interpretation Summary Mild (<50%) stenosis right extracranial internal carotid. Mild (<50%) stenosis left extracranial internal carotid. Patent and antegrade vertebrals bilaterally. Ordering Physician: Mary Sims Referring Physician: Ora Nam Performed By: Agus Carr RVT
== END | disposition home or self-care (01) ==
PROVIDERS: PCP Internal Medicine; Referring Provider Physician Assistant; Visit Provider Physician Assistant
DX: I65.22 Occlusion and stenosis of left carotid artery (principal)
CPT/HCPCS: 93880

== ENCOUNTER → 2025-08-05 | Outpatient (CLI) | payer MEDICARE, OTHER, SELFPAY ==
[2025-08-05 18:55] LABS: Hematocrit 35.6 % (37-47); Hemoglobin 12.4 g/dL (12.0-15.0); Immature Granulocytes Count 0.020 X10^3/uL (0.0-0.0); Mean Corp Hgb Conc 34.8 g/dL (32-36); Mean Corpuscular Volume 92.7 fL (81-99); Mean Platelet Vol. 9.6 fl (6.2-12.0); NRBC Flagged by Analyzer 0 % (0-5); Platelet Count 215 K/mm3 (150-450); RBC Distribution Width CV 13.7 % (11.6-14.6); RBC Distribution Width SD 46.2 fl (35.1-43.9); Red Blood Count 3.84 M/mm3 (4.2-5.4); White Blood Count 6.4 K/mm3 (4.4-11.0)
[2025-08-05 21:37] LABS: AST(SGOT) 16 U/L (<=31); Alanine Aminotransfer ALT/SGPT 10 U/L (<=34); Albumin, Serum 4.1 g/dL (3.4-4.8); Alkaline Phosphatase 58 U/L (35-104); Anion Gap 12 (5-15); BUN 15 mg/dL (4-19); BUN/Creat Ratio 21.4 RATIO (10-20); Calcium,Total 9.6 mg/dL (7.6-11.0); Carbon Dioxide 25.3 mmol/L (21.0-32.0); Chloride 102 mmol/L (98-108); Cholesterol 152 mg/dL (<=200); Free T3 2.1 pg/mL (2.18-3.98); Globulin 3.4 g/dL (2.2-4.2); Glucose 98 mg/dL (70-99); Low Density Lipoprotein Calc. 75 mg/dL; Magnesium 2.1 mg/dL (1.5-2.2); Potassium 4.5 mmol/L (3.3-5.1); Triglycerides 93 mg/dL; Very Low Density Lipoprotein 19 mg/dL (5-40); Vitamin D,25 Hydroxy 52.4 ng/mL (30-100); cholesterol:hdl ratio screen 2.60
== END | disposition home or self-care (01) ==
PROVIDERS: PCP Internal Medicine; Referring Provider Internal Medicine; Visit Provider Internal Medicine
DX: I25.119 Atherosclerotic heart disease of native coronary artery with unspecified angina pectoris (principal); I27.20 Pulmonary hypertension, unspecified; Z68.42 Body mass index [BMI] 45.0-49.9, adult; E66.01 Morbid (severe) obesity due to excess calories; E11.65 Type 2 diabetes mellitus with hyperglycemia; E89.0 Postprocedural hypothyroidism; I10 Essential (primary) hypertension
CPT/HCPCS: 36415; 80053; 80061; 82306; 83036; 83735; 84439; 84443; 84481; 85025

== ENCOUNTER → 2025-08-14 | Outpatient (CLI) | payer MEDICARE, OTHER, SELFPAY ==
--- NOTE | 2025-08-14 11:10 | US_ITS ---
PROCEDURE: ABDOMEN LIMITED 08/14/2025 REASON FOR EXAM: RUQ PAIN, NAUSEA TECHNIQUE: Procedure Code: USABDL Modality: US Procedure: ABDOMEN LIMITED COMPARISON: CT scan dated August 03, 2024. FINDINGS: Liver: Grossly normal size and echotexture. Gallbladder: No stones, sludge, wall thickening or tenderness. Common bile duct: Normal measuring 5.5 mm . Pancreas: Visualized portions are unremarkable. The distal body and tail are obscured by bowel gas. Other: Visualized portions of the right kidney are unremarkable. No right upper quadrant ascites. US/Abdomen Limited IMPRESSION: NORMAL RIGHT UPPER QUADRANT ULTRASOUND. Limited visualization of the body and tail portion of the pancreas. [facility]
[2025-08-14 12:21] LABS: Hematocrit 36.2 % (37-47); Hemoglobin 12.5 g/dL (12.0-15.0); Immature Granulocytes Count 0.030 X10^3/uL (0.0-0.0); Mean Corp Hgb Conc 34.5 g/dL (32-36); Mean Corpuscular Volume 94.3 fL (81-99); Mean Platelet Vol. 8.8 fl (6.2-12.0); NRBC Flagged by Analyzer 0 % (0-5); Platelet Count 215 K/mm3 (150-450); RBC Distribution Width CV 13.2 % (11.6-14.6); RBC Distribution Width SD 45.1 fl (35.1-43.9); Red Blood Count 3.84 M/mm3 (4.2-5.4); White Blood Count 7.4 K/mm3 (4.4-11.0)
[2025-08-14 13:14] LABS: AST(SGOT) 16 U/L (<=31); Alanine Aminotransfer ALT/SGPT 8 U/L (<=34); Albumin, Serum 4.2 g/dL (3.4-4.8); Alkaline Phosphatase 60 U/L (35-104); Anion Gap 10 (5-15); BUN 19 mg/dL (4-19); BUN/Creat Ratio 21.8 RATIO (10-20); Calcium,Total 9.5 mg/dL (7.6-11.0); Carbon Dioxide 27.0 mmol/L (21.0-32.0); Chloride 101 mmol/L (98-108); Globulin 3.2 g/dL (2.2-4.2); Glucose 91 mg/dL (70-99); Potassium 4.5 mmol/L (3.3-5.1)
== END | disposition home or self-care (01) ==
PROVIDERS: PCP Internal Medicine; Referring Provider Internal Medicine; Visit Provider Internal Medicine
DX: R10.11 Right upper quadrant pain (principal); R11.0 Nausea
CPT/HCPCS: 36415; 76705; 80053; 85025

== ENCOUNTER → 2025-08-28 | Outpatient (CLI) | payer MEDICARE, OTHER, SELFPAY ==
--- NOTE | 2025-08-28 08:52 | NM_ITS ---
PROCEDURE: NM/Hepatobilliary [place] w/Pharm Int
== END | disposition home or self-care (01) ==
PROVIDERS: PCP Internal Medicine; Referring Provider Internal Medicine; Visit Provider Internal Medicine
DX: R10.11 Right upper quadrant pain (principal); R11.0 Nausea
CPT/HCPCS: 78227; A9537; J2805

== ENCOUNTER → 2025-09-12 | Outpatient (CLI) | payer MEDICARE, OTHER, SELFPAY ==
[2025-09-12 18:47] LABS: Ferritin 174 ng/mL (22-378); Vitamin D,25 Hydroxy 55.8 ng/mL (30-100)
[2025-09-18 20:08] LABS: Zinc, Plasma or Serum 83 ug/dL (44-115)
== END | disposition home or self-care (01) ==
LOC: MTLAB 14:40
PROVIDERS: PCP Internal Medicine; Referring Provider Dermatology; Visit Provider Dermatology
DX: Z13.21 Encounter for screening for nutritional disorder (principal)
CPT/HCPCS: 36415; 82306; 82728; 84630

== ENCOUNTER 2025-10-11 06:52 | Day surgery (SDC) | payer MEDICARE, OTHER, SELFPAY ==
--- NOTE | 2025-10-09 17:49 | PAT.ANE_ITS ---
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 When Was Last Pacemaker Check QUESTION #4 FULL TEXT: You/Your Family Experience fever (hyperthermia) with Anesthesia Last Oral Intake Last Oral intake: Last Oral Intake NPO since Meds taken in AM with sips of water? Meds patient instructed to take am of surgery PONV PONV - event planner: PONV - event planner Female Yes 10/09/25 13:36 HX of Motion Sickness Yes 10/09/25 13:36 HX of N/V After Surgery Yes 10/09/25 13:36 Non-Smoker Yes 10/09/25 13:36 Duration of Surgery greater No 10/09/25 13:36 than 60 minutes Number of Risk Factors 4 10/09/25 13:36 PONV Score Severe Risk 10/09/25 13:36 Height & Weight Height & Weight: Anesthesia: Height & Weight Height 5 ft 2 in 09/18/25 13:34 Respiratory Assessment Respiratory Assessment - event planner: Respiratory Tract Infection Hx - event planner Hx Respiratory Tract Infection No 10/09/25 13:36 STOP Sleep Apnea STOP Sleep Apnea - event planner: STOP Sleep Apnea - event planner Hx Hypertension Yes: CONTROLLED WITH MEDS 10/09/25 13:36 Hx Sleep Apnea No 10/09/25 13:36 CPAP BIPAP Do you snore loudly (louder No 10/09/25 13:36 than talking or can be heard Do you often feel tired/ No 10/09/25 13:36 fatigued/ sleepy during daytime? Has anyone observed you stop No 10/09/25 13:36 breathing during sleep? STOP Results Negative 10/09/25 13:36 QUESTION #5 FULL TEXT : Do you snore loudly (louder than talking or can be heard through closed doors)? 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 Specify any problems Hx of Preganancy in last 3 No 10/09/25 13:36 Months Nurse Filling Out Transfusion [id number] 10/09/25 13:36 & Questions: Date: 10/09/25 10/09/25 13:36 Time: 13:39 10/09/25 13:36 Patient unable to answer at this time (ie. confused, unrespo /Reproduction History /Reproductive History - event planner: /Reproductive Hx- event planner Hx Now Gestational Age (in weeks): EDC: Hx Hx Para Hx Section SAB No 10/09/25 13:36 Does the father of the baby or his family experience fever w Father of the baby Malignant Hypertension history comment PFSH Medical History History of rheumatic fever Nausea RUQ pain PONV (postoperative nausea and vomiting) Unilateral vocal cord paralysis Graves disease Thyroid disease Rheumatoid arthritis High cholesterol TIA (transient ischemic attack) History of hiatal hernia Diverticulosis History of colitis Shortness of breath on exertion Chronic cough Leg cramps History of edema Hypertension Epigastric pain Rectal bleeding Dysphagia Abnormal stress test Carotid stenosis Wears glasses Anxiety Cancer Hyperthyroidism Diabetes Bladder leak Hemochromatosis Fatty liver Restless leg Back pain Concussion Mini stroke Light-headedness Dietary restriction Hernia, hiatal Hx of duodenal ulcer Diverticulitis GERD (gastroesophageal reflux disease) Non-smoker History of pain when walking Edema Rheumatic fever Cardiology follow-up encounter H/O echocardiogram History of stress test Obesity Thyroid cancer Asthma Knee pain Cancer Arthritis Postprocedural hypothyroidism Paroxysmal atrial fibrillation Atrial fibrillation Hypothyroidism stem cell replacement Lt knee Essential hypertension Screening for intestinal cancer GERD (gastroesophageal reflux disease) Chest pain, unspecified HTN (hypertension) Left carotid artery stenosis HLD (hyperlipidemia) Diabetes mellitus Fatigue Visual disturbance Pulmonary hypertension Home Medications ?Medication ?Instructions ?Recorded ?Last Taken ?Type fluticasone propionate 50 1 spray NASAL DAILY PRN Forrest estion 09/29/15 Unknown History mcg/actuation nasal spray,suspension cholecalciferol (vitamin D3) 50 5,000 unit PO DAILY PULLIAM PPLEMENT 08/24/17 Unknown History mcg (2,000 unit) capsule ascorbate calcium (vitamin C) 500 500 mg PO DAILY SUPP LEMENT 07/10/20 Unknown History mg tablet artifi.tears(hypromellose)(PF) 0.3 1 drp ophthalmic (e ye) DAILY PRN 05/31/22 Unknown History % eye drops Dry Eye(S) aspirin 81 mg tablet,delayed 81 mg PO QDAY HEART HEALT H 09/09/22 10/05/25 History release (Adult Aspirin Regimen) ibuprofen 800 mg tablet 800 mg PO BID PRN PAIN 01/12 Unknown History omeprazole magnesium 20 mg 40 mg PO QHS GERD 05/22/24 Unknown History capsule,delayed release (Acid Clothing Room Supervisor (omeprazole)) psyllium husk 0.4 gram capsule 0.4 g PO DAILY PRN cons tipation 05/22/24 Unknown History (Metamucil) estradiol 0.01% (0.1 mg/gram) 1 g vaginal 2XW #42.5 gr ams 02/20/25 Unknown Rx vaginal cream amlodipine 5 mg tablet 5 mg PO QHS 08/07/25 Unknown History levothyroxine 137 mcg tablet 137 mcg PO QDAY #90 tabs 09/05/25 Unknown Rx metoprolol tartrate 50 mg tablet 50 mg PO .COMPLEX #18 0 tabs 09/11/25 Unknown Rx tirzepatide 2.5 mg/0.5 mL 2.5 mg (0.5 mL) subcut QWEEK #2 mL 10/07/25 10/03/25 Rx subcutaneous pen injector estradiol 0.05 mg/24 hr semiweekly 1 patch topical SUW E 10/09/25 Unknown History transdermal patch ranolazine 500 mg tablet,extended 500 mg PO BID Unknown History release,12 hr Allergy/AdvReac Type Severity Reaction Status Date / Time amoxicillin Allergy Unknown Verified 10/09/25 13:30 duloxetine (From Cymbalta) Allergy neuropathy Verified 10/09/25 13:30 losartan (Losartan) Allergy Unknown Verified 10/09/25 13:30 ramipril Allergy Unknown Verified 10/09/25 13:30 ranitidine HCl (From Zantac) Allergy Unknown Verified 10/09/25 13:30 meloxicam (From Mobic) AdvReac Severe Heartburn Verified 10/09/25 13:30 ondansetron (From Zofran) AdvReac Severe Heartburn Verified 10/09/25 13:30 celecoxib (From Celebrex) AdvReac Upset Verified 10/09/25 13:30 Stomach cortisone AdvReac emotional Verified 10/09/25 13:30 issues glimepiride AdvReac Nausea/Vom/ Verified 10/09/25 13:30 Diarrhea metformin HCl (From AdvReac Nausea/Vom/ Verified 10/09/25 13:30 Glucophage) Diarrhea methotrexate AdvReac Unknown Verified 10/09/25 13:30 Penicillins AdvReac Nausea/Vom/ Verified 10/09/25 13:30 Diarrhea pravastatin AdvReac MUSCLE PAIN Verified 10/09/25 13:30 Family History Father CAD (coronary artery disease) Ischemic cardiomyopathy Mother Atrial fibrillation CHF (congestive heart failure) Pulmonary fibrosis Sister Myocardial infarction Diabetes COPD (chronic obstructive pulmonary disease) Hypertension Cancer Pancreatic Brother Cancer Pancreatic CA Diabetes Atrial fibrillation Surgical History Cataract fragments in eye following cataract surgery History of left-sided carotid endarterectomy History of left-sided carotid endarterectomy (~09/20/22) Hx of cardiac catheterization History of thyroidectomy, total H/O: hysterectomy History of knee replacement S/P thyroid biopsy (~02/2018) Social History Smoking Status: Never smoker alcohol intake: former substance use type: does not use what type of physical activity do you participate in: other details: physical therapy frequency: 1-2 times per week duration: 45-60 minutes/day seatbelt use: always do you feel safe at home: Yes Prior Cardiac Testing/Procedures Prior Cardiac Testing/Procedures: Cardiac Angiogram ( catheterization from 2022 showed a single 80% diagonal lesion she had a negative stress test in May 2024) Addt'l Information Additional Findings: > 4 METS Recommendation Anesthesia Recommendation Anesthesia recommendation: OPTIMIZED for anesthesia
[2025-10-11] VITALS (7 sets, daily range): BP systolic 114–134; BP diastolic 55–60; PULSE 58–64; RESP 14–16; TEMP 36.1–36.4; O2SAT 95–98; BMI 44.3
--- OUTSIDE RECORDS SUMMARY | 2025-10-11 06:56 | XMS RPT_ITS | CCD ---
Author Organization [facility] Care Team Providers Care Inspector [employer] Name Role Phone Jacki Cristobal Unavailable Unavailable Micki Rivas Unavailable Jacki Cristobal Unavailable Unavailable Pcp, No Primary Care Provider Unavailabl e Unavailable Primary Care Provider Unavailabl e Dr. Ora Nam Primary Care Provider Dr. Ora Nam Attending Provider [phone] Dr. Ora Nam Referring Provider [phone] Dr. Wilfred Leggett Attending Provider Dr. Rusty Sawyer Attending Provider SHAHRAM Soto Attending Provider Dr. Titi Calderon Attending Provider [phone] Ora Nam Primary Care Provider Dr. Ora Nam Attending Provider [phone] Dr. Ora Nam Referring Provider [phone] Dr. Wilfred Leggett Attending Provider Dr. Rusty Sawyer Attending Provider [phone] SHAHRAM Soto Attending Provider Dr. Titi Calderon Attending Provider Dr. Rusty Sawyer Admit Provider Dr. Rusty Sawyer Referring Provider Dr. Rusty Sawyer Other Provider Dr. Ora Nam Primary Care Provider Dr. Ora Nam Referring Provider [phone] Dr. Ora Nam Attending Provider [phone] Dr. Rusty Sawyer Attending Provider Uvaldo OMALLEY PA-C Celia Attending Provider Dr. Wilfred Leggett Attending Provider Dr. Hernesto Brar Attending Provider Dr. Ora Nam Primary Care Provider Dr. Hernesto Brar Attending Provider Dr. Rusty Sawyer Referring Provider [phone] Dr. Ora Nam Attending Provider [phone] Silverio, Dr. Rusty Barclay Attending Provider [phone] Dr. Ora Nam Referring Provider [phone] Uvaldo OMALLEY PA-C Celia Referring Provider Unavailable Primary Care Provider Dr. Ora Rodriguez Primary Care Provider Dr. Ora Nam Referring Provider [phone] Dr. Hernesto Brar Attending Provider Uvaldo OMALLEY PA-C Celia Attending Provider [phone] Dr. Rusty Sawyer Attending Provider Uvaldo OMALLEY PA-C Celia Referring Provider Dr. Ora Nam Attending Provider [phone] Dr. Ora Nam Primary Care Provider Dr. Ora Nam Referring Provider [phone] Uvaldo OMALLEY PA-C Celia Attending Provider Dr. Rusty Sawyer Attending Provider [phone] Dr. Ora Nam Primary Care Provider Uvaldo OMALLEY PA-C Celia Referring Provider Dr. Hernesto Brar Referring Provider Dr. Hernesto Brar Other Provider Dr. Titi Calderon Attending Provider Dr. Ora Nam Referring Provider [phone] Jed AIR TUCKER, AIR TUCKER-C Nicol Attending Provider Dr. Wilfred Leggett Attending Provider Dr. Ora Nam Primary Care Provider Dr. Ora Nam Attending Provider Dr. Ora Nam Referring Provider Viv, Dr. Payan Primary Care Provider Dr. Rusty Sawyer Attending Provider Viv, Dr. Payan Primary Care Provider Dr. Ora Nam Referring Provider Dr. Ora Nam Attending Provider Jed AIR TUCKER, AIR TUCKER-C Nicol Attending Provider Dr. Ora Nam Primary Care Provider Dr. Ora Nam Referring Provider Dr. Wilfred Leggett Attending Provider Dr. Titi Calderon Attending Provider Dr. Ora Nam Primary Care Provider Dr. Ora Nam Referring Provider Dr. Wilfred Leggett Attending Provider Dr. Ora Nam Attending Provider Jed AIR TUCKER, AIR TUCKER-C Nicol Attending Provider Dr. Titi Calderon Attending Provider [phone] Unavailable Primary Care Provider Leslee Nam MD, Dr. Payan Primary Care Physician Cheri JARVIS, Dr. Myrick Attending Physician Marsha JARVIS, Dr. Dias Nurse Practitioner Sims PA, Mary Attending Physician Sims PA, Mary Referring Provider Marsha JARVIS, Dr. Dias Attending Physician Viv JARVIS, Dr. Payan Attending Physician Viv JARVIS, Dr. Payan Referring Provider Gabrielle Jones Attending Physician Gabrielle Jones Referring Provider [phone] SHARMIN HERNADEZ Referring Unavailable RACHELL BARTHOLOMEW Referring Unavailable WISWELL, REE Attending Unavailable WISWELL, REE Referring Unavailable WISWELL, REE Referring Unavailable Viv, Ora Attending Unavailable Viv, Ora Primary Care Unavailable Viv, Ora Referring Unavailable Viv, Ora Primary Care Unavailable Viv, Ora Referring Unavailable Viv, Ora Attending Unavailable Viv, Ora Primary Care Unavailable Arun Larson Consulting Unavailable Sims, Mary Referring Unavailable Sims, Mary Attending Unavailable Viv, Ora Primary Care Unavailable Viv, Roa Referring Unavailable Viv, Ora Attending Unavailable Viv, Ora Primary Care Unavailable Gabrielle Jones Referring Unavail able Gabrielle Jones Attending Unavail able Viv, Ora Primary Care Unavailable Viv, Ora Referring Unavailable Sims, Mary Attending Unavailable Viv, Ora Primary Care Unavailable Viv, Oar Referring Unavailable Gabrielle Jones Attending Unavail able Viv, Ora Primary Care Unavailable Arun Larson Attending Unavailable Sims, Mary Referring Unavailable Viv, Ora Primary Care Unavailable Viv, Ora Referring Unavailable Gabrielle Jones Attending Unavail able Viv, Ora Primary Care Unavailable Viv, Ora Attending Unavailable Viv, Ora Primary Care Unavailable Viv, Ora Referring Unavailable Elen Alonzo Attending Unavailable Viv, Ora Primary Care Unavailable Viv, Ora Attending Unavailable Viv, Ora Primary Care Unavailable Viv, Ora Referring Unavailable Gabrielle Jones Attending Unavail able Viv, Ora Primary Care Unavailable Viv, Ora Referring Unavailable Viv, Ora Attending Unavailable Allergies Allergy Classification Reported Allergen(s) Allergy Type Date of Onset Reaction(s) Facility (20 sources) amoxicillin; Translations: [AMOXICILLIN] drug allergy 9 Diarrhea [facility] Work Phone: [phone] (3 sources) celecoxib drug allergy 7 GI symptoms [facility] Work Phone: [phone] (3 sources) DULoxetine drug allergy 7 GI upset and intolerence [facility] Work Phone: [phone] (20 sources) glipiZIDE; Translations: [GLIPIZIDE] drug allergy 7 Unknown [facility] Work Phone: [phone] (20 sources) losartan; Translations: [losartan] drug allergy 5 chest pain, Unknown [facility] Work Phone: [phone] (6 sources) metFORMIN drug allergy 5 bloating diarrhea [facility] Work Phone: [phone] (20 sources) ramipril; Translations: [RAMIPRIL] drug allergy 5 Other: See Comments [facility] Work Phone: [phone] (3 sources) raNITIdine drug allergy 5 rash [facility] Work Phone: [phone] (20 sources) DULoxetine; Translations: [DULOXETINE] Drug Allergy 7 Other: See Comments [facility] (20 sources) Esomeprazole; Translations: [ESOMEPRAZOLE MAGNESIUM] Drug Allergy 6 Other: See Comments [facility] Work Phone: (20 sources) metFORMIN; Translations: [METFORMIN HCL] Drug Allergy 7 Diarrhea, GI Upset [facility] Work Phone: (20 sources) Omeprazole; Translations: [OMEPRAZOLE] Drug Allergy 6 Other: See Comments [facility] Work Phone: (20 sources) pantoprazole; Translations: [PANTOPRAZOLE SODIUM] Drug Allergy 6 Other: See Comments [facility] Work Phone: (20 sources) raNITIdine; Translations: [RANITIDINE HCL] Drug Allergy 5 Rash, Itching [facility] Work Phone: (19 sources) celecoxib Drug Allergy 2 Upset Stomach [facility] (19 sources) Cortisone Drug Allergy 2 emotional issues [facility] (19 sources) glimepiride Drug Allergy 2 Nausea/Vom/Diar edd [facility] (19 sources) meloxicam Drug Allergy 2 Heartburn [facility] (19 sources) Methotrexate Drug Allergy 2 Unknown [facility] (20 sources) Penicillins; Translations: [PENICILLINS] Propensity to adverse reactions 2 GI Upset [facility] (16 sources) Pravastatin Drug Allergy 2 MUSCLE PAIN [facility] (1 source) celecoxib Drug Allergy 5 [facility] (1 source) Cortisone Drug Allergy 5 [facility] (1 source) DULoxetine Drug Allergy 5 [facility] (1 source) glimepiride Drug Allergy 5 [facility] (1 source) meloxicam Drug Allergy 5 [facility] (1 source) metFORMIN Drug Allergy 5 [facility] (1 source) Methotrexate Drug Allergy 5 [facility] (1 source) Ondansetron Drug Allergy 5 [facility] (1 source) Pravastatin Drug Allergy 5 [facility] (1 source) raNITIdine Drug Allergy 5 [facility] Medications Current Medications Medication Drug Class(es) Dates Sig (Normalized) Sig (Original) amLODIPine 5 mg oral tablet (20 sources) Dihydropyridine Calcium Channel [facility] Start: 08-07-2025 End: 08-07-2025 take 1 tablet by mouth once daily Start: 06-18-2024 End: 08-07-2025 take 1 tablet by mouth twice daily Amlodipine 5 mg tablet Discontinued 5 mg PO TWICE A DAY 180 3 February 01, 2025 9:00am August 07, 2025 9:21am Start: 11-14-2023 End: 06-18-2024 take 2 tablets by mouth once daily Amlodipine 5 mg tablet Discontinued 0 .ROUTE .COMPLEX 180 November 14, 2023 8:58am June 18, 2024 12:51pm TAKE 2 TABLETS BY MOUTH DAILY Start: 04-05-2023 End: 11-14-2023 take 1 tablet by mouth once daily Amlodipine 5 mg tablet Discontinued 5 mg PO DAILY 180 April 05, 2023 10:20am November 14, 2023 8:58am GENERIC BRAND CIPLA ONLY: pt cannot tolerate other Start: 07-31-2021 End: 04-05-2023 take 2 tablets by mouth once daily Amlodipine 5 mg tablet Discontinued 10 mg PO DAILY 180 February 21, 2023 10:01am April 05, 2023 10:21am GENERIC BRAND CIPLA ONLY: pt cannot tolerate other Start: 07-31-2021 End: 04-05-2023 take 10 mg by mouth once daily Amlodipine Discontinued 10 MG PO DAILY 180 February 21, 2023 9:01am April 05, 2023 9:21am Start: 09-29-2015 End: 02-27-2018 take 2 tablets by mouth once daily Amlodipine 5 MG tablet Discontinued 10 mg PO DAILY September 29, 2015 1:00am February 27, 2018 9:03am Start: 09-29-2015 End: 02-27-2018 take 10 mg by mouth once daily Amlodipine Discontinued 10 MG PO DAILY September 29, 2015 12:00am February 27, 2018 8:03am Start: 09-15-2015 End: 07-31-2021 take 1 tablet by mouth once daily Amlodipine 10 mg tablet Discontinued 10 mg PO DAILY 90 July 27, 2021 8:21am July 31, 2021 10:25am GENERIC BRAND CIPLA ONLY: pt cannot tolerate other Start: 09-15-2015 take 1 tablet by pat th once daily AMLODIPINE BESYLATE 5 MG TABS One tablet by mouth daily AMLODIPINE BESYLATE [id number] Hernesto Brar MD Comment on above: Take 1 tablet by pat th once daily. Ascorbic Acid (20 sources) Vitamin C ascorbic acid (V ITAMIN C ORAL) Take by mouth. Active ascorbic acid (V ITAMIN C ORAL) Take by mouth. 0 Active Comment on above: Take by mouth. aspirin 81 mg delayed release oral tablet (20 sources) Platelet Aggregation Inhibitor, Nonsteroidal Anti-inflammatory Drug Start: 01-30-2021 End: 09-09-2022 take 1 tablet by mouth once daily Start: 01-14-2021 End: 01-30-2021 take 1 tablet by mouth once daily Aspirin 325 mg tablet Discontinued 325 mg PO DAILY 90 January 14, 2021 12:00am January 30, 2021 12:50pm Start: 10-09-2019 End: 11-26-2020 Aspirin (Adult Low Dose Aspi rin) 81 mg tablet,delayed release (DR/EC) Discontinued 81 mg PO DAILY October 09, 2019 1:00am November 26, 2020 2:27pm aspirin 81 mg ca p Take by mouth. Active Comment on above: Take by mouth. bromfenac 0.75 mg/ml ophthalmic solution (15 sources) Nonsteroidal Anti-inflammatory Drug Start: 3 BROMSITE 0.075 % drop 1 Drop. 04/26/2023 Active Comment on above: 1 Drop. calcium ascorbate 500 mg oral tablet (19 sources) Start: 0 take 1 tablet by mouth once daily cholecalciferol 0.05 mg oral capsule (20 sources) Vitamin D Start: 7 Start: 08-24-2017 take 5000 [IU] by [facility] once daily Cholecalciferol (Vitamin D3) Active 5000 UNIT PO DAILY August 23, 2017 11:00pm take 1 tablet by [facility] once daily cholecalciferol (VITAMIN D3) 5,000 unit tab Take 5,000 Units by mouth once daily. Active Comment on above: Take 5,000 Units by mouth once daily. d-mannose (AZO D-MANNOSE) 500 mg cap (20 sources) d-mannose (AZO D -MANNOSE) 500 mg cap Take by mouth. Active d-mannose (AZO D -MANNOSE) 500 mg cap Take by mouth. 0 Active Comment on above: Take by mouth. estradiol 0.1 mg/ml vaginal cream (20 sources) Estrogen Start: 02-20-2025 End: 02-20-2025 Start: 08-27-2024 estradiol (ADEBAYO VINNIE-DOT) 0.075 mg/24 hr patch Apply 1 Patch as directed two times a week. 8 Patch 2 08/27/2024 Active Start: 09-09-2022 Start: 09-09-2022 End: 05-16-2024 Estradiol 0.01 % (0.1 mg/gra m) Cream Discontinued 1 g VAGINAL SUWE September 09, 2022 1:00am May 16, 2024 1:25pm MENOPAUSE Start: 11-25-2021 End: 08-27-2024 VIVELLE-DOT 0.1 mg/24 hr pat ch Indications: Vasomotor symptoms due to menopause Apply 1 Patch as directed two times a week. TWICE WEEKLY 24 Patch 07/30/2024 08/27/2024 Discontinued Start: 07-14-2020 End: 01-12-2021 Estradiol 0.075 mg/24 hr pat ch semiweekly Discontinued 1 NMA TD ONCE July 14, 2020 12:00am January 12, 2021 1:57pm Start: 07-14-2020 End: 01-12-2021 apply 1 dose transdermal route once Estradiol Discontinued 1 PATCH TD ONCE July 13, 2020 11:00pm January 12, 2021 12:57pm Start: 03-29-2019 End: 07-14-2020 Estradiol 0.05 mg/24 hr patc h semiweekly Discontinued 1 NMA TD TWICE A WEEK July 14, 2020 1:22pm July 14, 2020 1:48pm Start: 03-29-2019 End: 07-14-2020 apply 1 dose transdermal route two times weekly Estradiol Discontinued 1 PATCH TD TWICE A WEEK July 14, 2020 12:22pm July 14, 2020 12:48pm Start: 09-29-2015 End: 06-28-2018 Estradiol 1 EACH patch semiw eekly Discontinued 1 NMA TD EVERY WEEK September 29, 2015 1:00am June 28, 2018 2:41pm Start: 09-29-2015 End: 06-28-2018 Estradiol Discontinued 1 EAC H TD EVERY WEEK September 29, 2015 12:00am June 28, 2018 1:41pm Start: 08-08-2015 VIVELLE-DOT 0. 1 MG/24HR PTTW apply as directed ESTRADIOL [id number] Hernesto Brar MD Start: 08-08-2015 VIVELLE-DOT 0. 1 MG/24HR PTTW apply as directed ESTRADIOL [id number] Toshia James RN Start: 08-08-2015 VIVELLE-DOT 0. 1 MG/24HR PTTW apply as directed ESTRADIOL [id number] Hernesto Brar MD Comment on above: Apply 1 Patch as dir ected two times a week. TWICE WEEKLY Apply 1 Patch as dir ected two times a week. fluorometholone 1 mg/ml ophthalmic suspension (20 sources) Corticosteroid Start: 01-12-2023 fluorometholone (FML LIQUID FILM) 0.1 % ophthalmic suspension 1 Drop twice daily. 01/12/2023 Active Start: 05-31-2022 End: 10-20-2023 Fluorometholone 0.1 % drops, suspension Discontinued 1 NMA OPHTHALMIC TWICE A DAY May 31, 2022 12:00am October 20, 2023 4:01pm GLAUCOMA Comment on above: 1 Drop twice daily. fluticasone propionate 0.05 mg/actuat metered dose nasal spray (20 sources) Corticosteroid Start: 04-02-2019 take 2 spray(s) nasal route once daily fluticasone (FLONASE) 50 mcg/actuation nasal spray Use 2 Sprays in each nostril once daily. 1 Bottle 11 04/02/2019 Active Start: 09-29-2015 Start: 09-29-2015 Fluticasone Pr opionate Active 1 SPRAY NASAL DAILY September 29, 2015 12:00am Start: 08-08-2015 FLONASE 50 MCG /ACT SUSP Take as directed FLUTICASONE PROPIONATE [id number] Hernesto Brar MD Start: 08-08-2015 FLONASE 50 MCG /ACT SUSP Take as directed FLUTICASONE PROPIONATE [id number] Toshia James RN Start: 08-08-2015 FLONASE 50 MCG /ACT SUSP Take as directed FLUTICASONE PROPIONATE Hernesto Brar MD Start: 08-08-2015 FLONASE 50 MCG /ACT SUSP Take as directed FLUTICASONE PROPIONATE Toshia James RN Start: 08-08-2015 FLONASE 50 MCG /ACT SUSP Take as directed FLUTICASONE PROPIONATE Hernesto Brar MD Comment on above: Use 2 Sprays in each nostril once daily. hypromellose 3 mg/ml ophthalmic solution (19 sources) Start: 05-31-2022 ibuprofen 800 mg oral tablet (20 sources) Nonsteroidal Anti-inflammatory Drug Start: 09-09-2022 End: 01-12-2023 take 1 tablet by mouth twice daily as needed for pain Start: 05-16-2019 End: 11-26-2020 take 1 capsule by mouth every six hours Ibuprofen 200 mg capsule Discontinued 200 mg PO EVERY 6 HOURS May 16, 2019 12:00am November 26, 2020 2:27pm Start: 03-24-2018 End: 06-28-2018 take 4 tablets by mouth twice daily Ibuprofen 200 MG tablet Discontinued 800 mg PO TWICE A DAY March 24, 2018 12:00am June 28, 2018 2:41pm Start: 03-24-2018 End: 06-28-2018 take 800 mg by mouth twice daily Ibuprofen Discontinued 800 MG PO TWICE A DAY March 23, 2018 11:00pm June 28, 2018 1:41pm Start: 09-29-2015 End: 09-08-2017 take 1 tablet by mouth every six hours as needed for pain Ibuprofen 200 MG tablet Discontinued 200 mg PO EVERY 6 HOURS NEEDED as needed for Pain September 29, 2015 1:00am September 08, 2017 7:47am Start: 08-08-2015 IBUPROFEN 200 MG TABS 2-4 tablets every 2 hours as needed for pain IBUPROFEN [id number] Hernesto Brar MD take 200 mg by mouth every twelve hours as needed IBUPROFEN ORAL Take 200 mg by mouth twice daily as needed. Active IBUPROFEN ORAL T julienne by mouth. 0 Active Comment on above: Take by mouth. Take 200 mg by mouth twice daily as needed. L.Acidoph, Paracasei,B. Lactis (Digestive Advantage Advanced) 10 billion cell capsule (15 sources) Start: 07-23-2021 take 10 capsules by mouth once daily L.Acidoph, Paracasei,B. Lactis (Digestive Advantage Advanced) 10 billion cell capsule Active 10 CELL PO DAILY July 23, 2021 12:00am Start: 07-23-2021 take 10 capsules by mouth once daily L.Acidoph, Paracasei,B. Lactis (Digestive Advantage Advanced) 10 billion cell capsule Active 10 CELL PO DAILY July 22, 2021 11:00pm Start: 07-23-2021 GiselleAcidoph, Andrew huston,B. Lactis (Digestive Advantage Advanced) 10 billion cell capsule Active CELL PO July 23, 2021 12:00am lansoprazole 30 mg delayed release oral capsule (20 sources) Proton Pump Inhibitor Start: 01-15-2020 take 1 capsule by mouth once daily lansoprazole (PREVACID) 30 mg capsule Indications: Gastroesophageal reflux disease without esophagitis Take 1 capsule by mouth once daily. 90 capsule 01/15/2020 Active Start: 09-29-2015 End: 06-28-2018 take 1 capsule by mouth twice daily Lansoprazole 30 MG capsule Discontinued 30 mg PO TWICE A DAY September 29, 2015 1:00am June 28, 2018 2:41pm Start: 08-08-2015 take 1 tablet by pat once daily as needed PREVACID 30 MG CPDR One tablet by mouth daily as needed LANSOPRAZOLE [id number] Hernesto Brar MD Start: 08-08-2015 take 1 tablet by pat once daily as needed PREVACID 30 MG CPDR One tablet by mouth daily as needed LANSOPRAZOLE [id number] Hernesto Brar MD Comment on above: Take 1 capsule by mo [facility] once daily. levothyroxine sodium 0.175 m g oral tablet (20 sources) l-Thyroxine Start: 08-07-2025 Start: 05-18-2021 End: 08-07-2025 take 1 tablet by mouth once daily Levothyroxine 175 mc g tablet Discontinued 175 ug PO DAILY 90 December 10, 2024 8:54am August 07, 2025 9:21am Start: 03-05-2021 End: 05-18-2021 take 1 tablet by mouth once daily Levothyroxine 150 mc g tablet Discontinued 150 ug PO DAILY 90 March 05, 2021 12:00am May 18, 2021 9:05am Start: 12-22-2020 End: 03-05-2021 take 1 tablet by mouth once daily Levothyroxine 112 mc g tablet Discontinued 112 ug PO DAILY 90 December 22, 2020 1:00am March 05, 2021 1:56pm Start: 06-23-2020 End: 08-20-2020 Levothyroxine 50 mcg tablet Discontinued 25 ug PO DAILY June 23, 2020 9:33am August 20, 2020 2:46pm Start: 06-23-2020 End: 08-20-2020 take 25 ug by mouth once daily Levothyroxine Discontin ued 25 MCG PO DAILY June 23, 2020 8:33am August 20, 2020 1:46pm Start: 06-20-2020 take 1 tablet by pat th once daily for thyroid dysfunction levothyroxine (SYNTHROID) 25 mcg tablet Take 1 tablet by mouth once daily. Take on empty stomach. For thyroid. 30 tablet 2 06/20/2020 Active Start: 08-08-2015 End: 06-23-2020 take 1 tablet by mouth once daily Levothyroxine 50 MCG tablet Discontinued 50 ug PO DAILY September 29, 2015 1:00am June 23, 2020 9:34am take 1 capsule by mo uth once daily before breakfast levothyroxine 175 mcg cap Take 175 mcg by mouth daily before breakfast. Active Comment on above: Take 1 tablet by pat th once daily. Take on empty stomach. For thyroid. Take 175 mcg by mout h daily before breakfast. losartan potassium 25 mg oral tablet (20 sources) Angiotensin 2 Receptor [facility] Start: 02-05-2019 take 0.5 tablet by mouth once daily losartan (COZAAR) 25 mg tablet Indications: Controlled type 2 diabetes mellitus without complication, without long-term current use of insulin (HCC) Take 0.5 tablets by mouth once daily. 15 tablet 5 02/05/2019 Active Start: 03-24-2018 End: 03-29-2019 Losartan 25 MG tablet Discon tinued 12.5 mg PO DAILY March 24, 2018 12:00am March 29, 2019 11:48am Start: 03-24-2018 End: 03-29-2019 take 12.5 mg by mouth once daily Losartan Discontinued 12.5 MG PO DAILY March 23, 2018 11:00pm March 29, 2019 10:48am Start: 08-08-2015 take 1 tablet by pat th once daily LOSARTAN POTASSIUM 25 MG TABS One tablet by mouth daily LOSARTAN POTASSIUM [id number] Toshia James RN Start: 08-08-2015 End: 09-15-2015 take 2 tablets by mouth once daily LOSARTAN POTASSIUM 25 MG TABS Two tablets by mouth daily LOSARTAN POTASSIUM [id number] Hernesto Brar MD Comment on above: Take 0.5 tablets by mouth once daily. metoprolol tartrate 100 mg o ral tablet (20 sources) beta-Adrenergic [place] Start: 08-21-2025 Start: 04-05-2023 End: 08-21-2025 take 1 tablet by mouth twice daily Metoprolol Tartrate 100 mg tablet Discontinued 100 mg PO TWICE A DAY 180 3 June 25, 2024 11:33am July 08, 2025 9:33am DO NOT USE Aurobin brand generic Start: 06-08-2021 End: 04-05-2023 Metoprolol Tartrate 100 mg t ablet Discontinued 50 mg PO TWICE A DAY 180 3 January 27, 2023 2:48pm April 05, 2023 10:21am BP Start: 06-08-2021 End: 04-05-2023 take 50 mg by mouth twice daily Metoprolol Tartrate Di scontinued 50 MG PO TWICE A DAY 180 January 27, 2023 1:48pm April 05, 2023 9:21am Start: 11-26-2020 End: 06-08-2021 take 1 tablet by mouth twice daily Metoprolol Tartrate 100 mg tablet Discontinued 100 mg PO TWICE A DAY 180 3 December 10, 2020 6:00pm June 08, 2021 3:54pm Start: 09-24-2020 End: 11-26-2020 take 1 tablet by mouth twice daily Metoprolol Tartrate 50 mg tablet Discontinued 50 mg PO TWICE A DAY 60 September 24, 2020 1:00am November 26, 2020 3:18pm Start: 08-20-2020 End: 09-24-2020 take 1 tablet by mouth twice daily Metoprolol Tartrate 25 mg tablet Discontinued 25 mg PO TWICE A DAY 60 September 24, 2020 11:16am September 24, 2020 12:25pm take 1 tablet by pat th twice daily metoprolol succinate ER (TOPROL XL) 50 mg 24 hr tablet Take 100 mg by mouth twice daily. Active take 1 tablet by pat th twice daily metoprolol succinate ER (TOPROL XL) 50 mg 24 hr tablet Take 50 mg by mouth twice daily. 0 Active Comment on above: Take 50 mg by mouth twice daily. Take 100 mg by mouth twice daily. MULTIVITAMIN TAB (20 sources) Start: 08-04-2005 MULTIVITAMIN TAB Take one(1) tablet daily. 0 08/04/2005 Active Comment on above: Take one(1) tablet d aily. ofloxacin 3 mg/ml ophthalmic solution (15 sources) Quinolone Antimicrobial Start: 04-26-2023 ofloxacin (OCUFLOX) 0.3 % ophthalmic solution 04/26/2023 Active omeprazole 20 mg delayed release oral capsule (20 sources) Proton Pump Inhibitor Start: 05-22-2024 Start: 09-09-2022 End: 05-22-2024 Omeprazole Magnesium (Acid R educer (Omeprazole)) 20 mg Capsule,Delayed Release(Dr/Ec) Discontinued 40 mg PO TWICE A DAY September 09, 2022 1:00am May 22, 2024 11:32am GERD ondansetron 4 mg disintegrating oral tablet (20 sources) Serotonin-3 Receptor Antagonist Start: 08-15-2025 take 1 tablet by mouth every eight hours as needed for nausea and vomiting Start: 12-12-2022 End: 05-16-2024 take 1 tablet by mouth every eight hours as needed for nausea Ondansetron 4 mg tablet,disintegrating Discontinued 4 mg PO EVERY 8 HOURS NEEDED as needed for Nausea 10 0 December 12, 2022 1:00am May 16, 2024 1:26pm Start: 12-24-2020 End: 01-12-2021 take 1 tablet by mouth every eight hours as needed for nausea Ondansetron Hcl 8 MG tablet Discontinued 8 mg PO EVERY 8 HOURS NEEDED as needed for Nausea 6 0 December 24, 2020 1:00am January 12, 2021 1:58pm potassium chloride 10 meq extended release oral tablet (20 sources) Start: 12-25-2019 potassium chlo ride (KLOR-CON 10) 10 mEq tablet Take 2 tablets by mouth twice daily. 120 tablet 12/25/2019 Active Start: 03-29-2019 End: 06-23-2020 take 2 tablets by mouth once daily Potassium Chloride 10 mEq tablet extended release Discontinued 20 meq PO DAILY March 29, 2019 11:49am June 23, 2020 9:33am Start: 03-29-2019 End: 06-23-2020 take 20 mEq by mouth once daily Potassium Chloride Dis continued 20 MEQ PO DAILY March 29, 2019 10:49am June 23, 2020 8:33am Start: 09-29-2015 End: 03-29-2019 take 2 tablets by mouth twice daily Potassium Chloride 10 MEQ tablet extended release Discontinued 20 meq PO TWICE A DAY September 29, 2015 1:00am March 29, 2019 11:50am Start: 08-08-2015 End: 03-29-2019 take 20 mEq by mouth twice daily Potassium Chloride Discontinued 20 MEQ PO TWICE A DAY September 29, 2015 12:00am March 29, 2019 10:50am Start: 08-08-2015 take 2 tablets by mo uth twice daily KLOR-CON 10 10 MEQ CR-TABS Two tablets by mouth twice daily POTASSIUM CHLORIDE [id number] Hernesto Brar MD Start: 08-08-2015 take 2 tablets by mo uth twice daily KLOR-CON 10 10 MEQ CR-TABS Two tablets by mouth twice daily POTASSIUM CHLORIDE [id number] Hernesto Brar MD Comment on above: Take 2 tablets by mo uth twice daily. psyllium 400 mg oral capsule (11 sources) Start: 05-16-2024 End: 05-22-2024 Start: 08-08-2015 METAMUCIL POWD as directed PSYLLIUM POWD [id number] Toshia James RN Start: 08-08-2015 METAMUCIL POWD as directed PSYLLIUM POWD Toshia James RN Psyllium powd (16 sources) Start: 10-17-2013 Psyllium powd Take by mouth. 0 10/17/2013 Active Comment on above: Take by mouth. 12 hr ranolazine 500 mg extended release oral tablet (20 sources) Anti-anginal Start: 08-20-2025 Start: 06-14-2024 End: 08-20-2025 Ranolazine 500 mg tablet ext ended release 12 hr Discontinued 1000 mg PO .COMPLEX 360 3 October 05, 2024 9:52am February 05, 2025 7:57am 1,000 mg orally twice daily: pt cannot tolerate the 1000 mg blue oblong tablets. She does fine with 500 mg [employer] [employer].; Start: 06-01-2024 End: 06-14-2024 take 1 tablet by mouth twice daily Ranolazine 1,000 mg tablet extended release 12 hr Discontinued 1000 mg PO TWICE A DAY 180 3 June 01, 2024 4:23pm June 14, 2024 1:47pm Start: 05-16-2024 End: 05-22-2024 take 1 tablet by mouth twice daily Ranolazine 500 mg tablet extended release 12 hr Discontinued 500 mg PO TWICE A DAY May 22, 2024 12:00am May 22, 2024 11:50am Start: 02-29-2024 End: 06-01-2024 take 1 tablet by mouth twice daily Ranolazine 500 mg tablet extended release 12 hr Discontinued 1000 mg PO TWICE A DAY May 22, 2024 11:50am June 01, 2024 4:23pm Start: 08-08-2023 End: 08-19-2023 take 1 tablet by mouth twice daily Ranolazine 500 mg tablet extended release 12 hr Discontinued 500 mg PO TWICE A DAY 60 August 08, 2023 12:00am August 19, 2023 3:14pm rosuvastatin calcium 5 mg oral tablet (20 sources) HMG-CoA Reductase Inhibitor Start: 08-07-2025 take 4 tablets by mouth once daily Start: 03-29-2023 End: 08-07-2025 take 1 tablet by mouth once daily Rosuvastatin 5 mg tablet Discontinued 5 mg PO DAILY 90 November 12, 2024 11:55am August 07, 2025 9:21am Start: 08-24-2017 End: 05-12-2021 take 1 tablet by mouth at bedtime Rosuvastatin 20 MG tablet Discontinued 20 mg PO AT BEDTIME August 24, 2017 12:00am May 12, 2021 1:14pm Comment on above: Take 20 mg by mouth once daily. Tirzepatide (3 sources) Start: 08-07-2025 End: 08-15-2025 Tirzepatide (Mounjaro) 5 mg/0.5 mL pen injector Discontinued mg SC August 07, 2025 12:00am August 15, 2025 9:26am Start: 08-07-2025 Tirzepatide (M ounjaro) 5 mg/0.5 mL pen injector Active mg SC August 07, 2025 12:00am Complies with drug therapy Tirzepatide (1 source) Start: 08-15-2025 Completed/Discontinued Medications Medication Drug Class(es) Dates Sig (Normalized) Sig (Original) acetaminophen 500 mg oral tablet (19 sources) Start: 09-08-2017 End: 03-08-2018 take 2 tablets by mouth every eight hours Acetaminophen 500 MG tablet Discontinued 1000 mg PO EVERY 8 HOURS 90 0 September 08, 2017 1:00am March 08, 2018 1:28pm Start: 09-08-2017 End: 03-08-2018 take 1000 mg by mouth every eight hours Acetaminophen Discontinued 1000 MG PO EVERY 8 HOURS 90 September 08, 2017 12:00am March 08, 2018 12:28pm [id number] 200 actuat albuterol 0.09 mg/actuat metered dose inhaler (19 sources) beta2-Adrenergic Agonist Start: 10-23-2020 End: 05-12-2021 Albuterol Sulfate (Proair Hfa) 90 mcg/actuation HFA aerosol inhaler Discontinued 1 - 2 NMA INHALATION EVERY 6 HOURS as needed for shortness of breath or wheezing 8.5 October 23, 2020 1:00am May 12, 2021 1:14pm Start: 10-23-2020 End: 05-12-2021 take 1 puff(s) by inhalation every six hours Albuterol Sulfate (Proair Hfa) 90 mcg/actuation HFA aerosol inhaler Discontinued 1 - 2 PUFF INHALATION EVERY 6 HOURS 8.October 23, 2020 12:00am May 12, 2021 12:14pm apixaban 5 mg oral tablet (20 sources) Factor Xa Inhibitor Start: 09-03-2020 End: 01-14-2021 take 1 tablet by mouth twice daily, then take 1 tablet by mouth twice daily Apixaban 5 mg tablet Discontinued 5 mg PO TWICE A DAY 60 5 January 12, 2021 12:31pm January 14, 2021 4:22pm Then 5 mg twice a day. atorvastatin 10 mg oral tablet (6 sources) HMG-CoA Reductase Inhibitor Start: 08-08-2015 End: 10-04-2016 take 1 tablet by mouth once daily ATORVASTATIN CALCIUM 10 MG TABS One tablet by mouth daily ATORVASTATIN CALCIUM [id number] Hernesto Brar MD azithromycin 250 mg oral tablet (20 sources) Macrolide Antimicrobial Start: 05-14-2025 End: 08-14-2025 Azithromycin 250 mg tablet Discontinued 0 PO .COMPLEX 6 0 May 24, 2025 10:57am August 07, 2025 11:26am For 250 mg dose pack: take 500 mg today (day 1), then 250 mg for 4 days (days 2-5) PO Start: 09-15-2023 End: 10-20-2023 Azithromycin 250 mg tablet D iscontinued 0 PO .COMPLEX 6 0 September 26, 2023 3:25pm October 20, 2023 4:01pm For 250 mg dose pack: take 500 mg today (day 1), then 250 mg for 4 days (days 2-5) PO Start: 09-15-2023 End: 10-20-2023 Azithromycin Discontinued 0 PO .COMPLEX 6 September 26, 2023 2:25pm October 20, 2023 3:01pm For 250 mg dose pack: take 500 mg today (day 1), then 250 mg for 4 days (days 2-5) PO Start: 12-20-2022 End: 01-12-2023 Azithromycin 250 mg tablet D iscontinued 0 PO .COMPLEX 6 0 December 20, 2022 1:00am January 12, 2023 11:11am For 250 mg dose pack: take 500 mg today (day 1), then 250 mg for 4 days (days 2-5) PO Start: 12-20-2022 End: 01-12-2023 Azithromycin Discontinued 0 PO .COMPLEX 6 December 20, 2022 12:00am January 12, 2023 10:11am For 250 mg dose pack: take 500 mg today (day 1), then 250 mg for 4 days (days 2-5) PO biotin 2.5 mg oral capsule (19 sources) Start: 07-10-2020 End: 11-26-2020 take 1 capsule by mouth once daily Biotin 2,500 mcg capsule Discontinued 2500 ug PO DAILY July 10, 2020 12:00am November 26, 2020 2:27pm citalopram 10 mg oral tablet (6 sources) Serotonin Reuptake Inhibitor Start: 10-04-2016 End: 05-11-2017 take 0.5 tablet by mouth once daily CITALOPRAM HYDROBROMIDE 10 MG TABS One-half tablet by mouth daily CITALOPRAM HYDROBROMIDE [id number] Hernesto Brar MD Cyclosporine (4 sources) Calcineurin Inhibitor Immunosuppressant Start: 05-31-2022 End: 03-21-2023 Cyclosporine (Restasis) 0.05 % dropperette Discontinued 1 NMA OPHTHALMIC Q12H May 31, 2022 12:00am March 21, 2023 9:09am DRY EYE Cyclosporine (Restasis) 0.05 % dropperette (15 sources) Start: 05-31-2022 End: 03-21-2023 Cyclosporine (Restasis) 0.05 % dropperette Discontinued 1 DRP OPHTHALMIC Q12H May 30, 2022 11:00pm March 21, 2023 8:09am Start: 05-31-2022 End: 03-21-2023 Cyclosporine (Restasis) 0.05 % dropperette Discontinued 1 DRP OPHTHALMIC Q12H May 31, 2022 12:00am March 21, 2023 9:09am Start: 05-31-2022 Cyclosporine ( Restasis) 0.05 % dropperette Active 1 DRP OPHTHALMIC Q12H May 30, 2022 11:00pm Start: 05-31-2022 Cyclosporine ( Restasis) 0.05 % dropperette Active 1 DRP OPHTHALMIC Q12H May 31, 2022 12:00am D-Mannose (19 sources) Start: 07-23-2021 End: 07-20-2023 take 2 mg by mouth once daily D-Mannose (Azo D-Mannose) 500 mg capsule Discontinued 2 mg PO DAILY July 23, 2021 12:00am July 20, 2023 1:05pm BLADDER Start: 07-23-2021 End: 07-20-2023 take 2 mg by mouth once daily D-Mannose (Azo D-Mannose ) 500 mg capsule Discontinued 2 MG PO DAILY July 22, 2021 11:00pm July 20, 2023 12:05pm Start: 07-23-2021 End: 07-20-2023 take 2 mg by mouth once daily D-Mannose (Azo D-Mannose ) 500 mg capsule Discontinued 2 MG PO DAILY July 23, 2021 12:00am July 20, 2023 1:05pm Start: 07-23-2021 take 2 mg by mouth once daily D-Mannose (Azo D-Mannose) 500 mg capsule Active 2 MG PO DAILY July 22, 2021 11:00pm Start: 07-23-2021 take 2 mg by mouth once daily D-Mannose (Azo D-Mannose) 500 mg capsule Active 2 MG PO DAILY July 23, 2021 12:00am 0.5 ml dulaglutide 1.5 mg/ml auto-injector (20 sources) GLP-1 Receptor Agonist Start: 07-20-2023 End: 05-22-2024 Dulaglutide (Trulicity) 0.75 mg/0.5 mL pen injector Discontinued 0.75 mg SC EVERY WEEK 2 July 20, 2023 12:13pm May 22, 2024 11:44am Diabetes mellitus Type 2 diabetes mellitus with hyperglycemia On Hold: None Start: 05-02-2023 End: 07-20-2023 Dulaglutide (Trulicity) 1.5 mg/0.5 mL pen injector Discontinued 1.5 mg SC EVERY WEEK 2 May 02, 2023 12:00am July 20, 2023 12:14pm Diabetes mellitus Type 2 diabetes mellitus with hyperglycemia Start: 12-17-2022 End: 05-02-2023 Dulaglutide (Trulicity) 0.75 mg/0.5 mL pen injector Discontinued 0.75 mg SC EVERY WEEK 2 January 13, 2023 8:14am May 02, 2023 11:00am Start: 10-04-2022 End: 12-17-2022 Dulaglutide (Trulicity) 1.5 mg/0.5 mL pen injector Discontinued 1.5 mg SC EVERY WEEK 2 December 17, 2022 4:30pm December 17, 2022 4:53pm Start: 09-09-2022 End: 12-17-2022 Dulaglutide (Trulicity) 0.75 mg/0.5 mL pen injector Discontinued 0.75 mg SC WE September 09, 2022 3:15pm December 17, 2022 4:30pm DIABETES Start: 05-31-2022 End: 09-09-2022 Dulaglutide (Trulicity) 0.75 mg/0.5 mL pen injector Discontinued 0.75 mg SC EVERY WEEK 2 May 31, 2022 12:00am September 09, 2022 3:15pm ergocalciferol [id number] unt oral tablet (3 sources) Provitamin D2 Compound Start: 08-08-2015 take 1 tablet by mouth every week VITAMIN D (ERGOCALCIFEROL) 94241 UNIT CAPS One tablet by mouth weekly ERGOCALCIFEROL [id number] Toshia James RN Start: 08-08-2015 take 1 tablet by pat th every week VITAMIN D (ERGOCALCIFEROL) 50289 UNIT CAPS One tablet by mouth weekly ERGOCALCIFEROL [id number] Toshia James RN esomeprazole 20 mg delayed release oral capsule (19 sources) Proton Pump Inhibitor Start: 01-12-2021 End: 05-12-2021 take 1 capsule by mouth twice daily Esomeprazole Magnesium 20 mg capsule,delayed release(DR/EC) Discontinued 20 mg PO TWICE A DAY January 12, 2021 12:00am May 12, 2021 1:14pm famotidine 20 mg oral tablet (20 sources) Histamine-2 Receptor Antagonist Start: 11-07-2018 End: 01-12-2021 take 1 tablet by mouth at bedtime Famotidine 20 MG tablet Discontinued 20 mg PO AT BEDTIME December 22, 2020 1:00am January 12, 2021 1:57pm Comment on above: Take 1 tablet by pat th twice daily. hydroCHLOROthiazide 25 mg / triamterene 37.5 mg oral tablet (20 sources) Potassium-spari ng Diuretic, Thiazide Diuretic Start: 12-24-2019 take 0.5 tablet by mouth once daily triamterene-hydroch lorothiazide (MAXZIDE-25) 37.5-25 mg per tablet Take 0.5 tablets by mouth once daily. 45 tablet 1 12/24/2019 Active Start: 09-29-2015 End: 05-16-2024 Triamterene-Hydrochlorothiaz id 37.5-25 mg tablet Discontinued 0.5 {tbl} PO AT BEDTIME 45 January 02, 2024 2:00pm May 16, 2024 1:26pm BP Start: 09-29-2015 End: 02-21-2023 take 0.5 tablet by mouth at bedtime Triamterene-Hydrochlorothiazid Discontin ued 0.5 TABLET PO AT BEDTIME 45 February 17, 2022 7:05am September 09, 2022 2:15pm Start: 08-08-2015 take 1 tablet by pat th once daily TRIAMTERENE-HCTZ 37.5-25 MG TABS One jacklyn f tablet by mouth daily TRIAMTERENE-HCTZ [id number] Hernesto Brar MD Comment on above: Take 0.5 tablets by mouth once daily. 24 hr isosorbide mononitrate 30 mg extended release oral tablet (8 sources) Nitrate Vasodilator Start: 3 End: 3 take 1 tablet by mouth once daily, then take 1 tablet by mouth every twenty-four hours Isosorbide Mononitrate 30 mg tablet extended release 24 hr Discontinued 30 mg PO DAILY 30 July 20, 2023 12:00am August 08, 2023 12:53pm L.Acidoph,Paracasei, B.Animalis (Digestive Advantage Advanced) 10 billion cell capsule (4 sources) Start: 1 End: 4 take 10 capsules by mouth once daily L.Acidoph,Paracasei, B.Animalis (Digestive Advantage Advanced) 10 billion cell capsule Discontinued 10 NMA PO DAILY July 23, 2021 12:00am May 16, 2024 1:25pm STOAMCH 3 ml liraglutide 6 mg/ml pen injector (20 sources) GLP-1 Receptor Agonist Start: 2 End: 2 Liraglutide 0.6 mg/0.1 mL (18 mg/3 mL) pen injector Discontinued 1.8 mg SC DAILY 9 December 01, 2021 5:40pm May 31, 2022 11:36am Start: 10-02-2021 End: 12-01-2021 Liraglutide 0.6 mg/0.1 mL (1 8 mg/3 mL) pen injector Discontinued 1.8 mg SC October 02, 2021 4:13pm December 01, 2021 5:40pm Start: 11-07-2020 End: 05-12-2021 Liraglutide 0.6 mg/0.1 mL (1 8 mg/3 mL) pen injector Discontinued 1.8 mg SC DAILY 9 November 07, 2020 3:46pm May 12, 2021 1:15pm Start: 04-21-2020 End: 10-02-2021 Liraglutide (Victoza 3-Adán) 0.6 mg/0.1 mL (18 mg/3 mL) pen injector Discontinued mL SC July 23, 2021 12:00am October 02, 2021 4:14pm Start: 08-24-2017 End: 11-07-2020 Liraglutide 0.6 MG/0.1 ML pe n injector Discontinued 1.25 mg SQ 1300 August 24, 2017 12:00am November 07, 2020 3:45pm Start: 05-11-2017 inject 1.2 mg by sub cutaneous injection once daily VICTOZA SOPN 1.2mg, SQ once a day LIRAGLUTIDE SOLN [id number] Hernesto Brar MD Comment on above: INJECT 1.2 MILLIGRAM (S) BY SUBCUTANEOUS ROUTE , 1 TIME PER DAY , FOR 30 DAYS lisinopril 2.5 mg oral tablet (6 sources) Angiotensin Converting Enzyme Inhibitor Start: 5 End: 6 take 1 tablet by mouth once daily LISINOPRIL 2.5 MG TABS One tablet by mouth daily (STOP) LISINOPRIL [id number] Hernesto Brar MD loratadine 10 mg oral tablet (6 sources) Start: 5 End: 6 LORATADINE 10 MG TABS as needed LORATADINE [id number] Hernesto Brar MD meloxicam 15 mg oral tablet (20 sources) Nonsteroidal Anti-inflammatory Drug Start: 8 End: 9 take 1 tablet by mouth once daily Meloxicam 15 mg tablet Discontinued 15 mg PO DAILY June 28, 2018 12:00am March 29, 2019 11:48am Start: 08-24-2017 End: 09-08-2017 take 1 tablet by mouth once daily Meloxicam (Mobic) 7.5 MG tablet Discontinued 7.5 mg PO DAILY August 24, 2017 12:00am September 08, 2017 7:47am metFORMIN hydrochloride 500 mg oral tablet (6 sources) Biguanide Start: 08-08-2015 End: 03-31-2016 take 1 tablet by mouth once daily METFORMIN HCL 500 MG TABS One tablet by mouth daily METFORMIN HCL [id number] Toshia James RN methIMAzole 10 mg oral tablet (20 sources) Thyroid Hormone Synthesis Inhibitor Start: 12-22-2020 End: 12-22-2020 Methimazole Discontinued 15 MG PO MOWEFR December 22, 2020 8:13am December 22, 2020 9:53am take 20 mg on 11/05/20 and 11/06/20, then resume 10 mg. Start: 12-22-2020 End: 12-22-2020 take 1 tablet by mouth once Methimazole 10 MG tablet Discontinued 10 mg PO every Tuesday, Tues, Thurs, Sat December 22, 2020 1:00am December 22, 2020 10:53am Start: 11-04-2020 End: 12-22-2020 Methimazole 10 MG tablet Discontinued 15 mg PO MOWEFR December 22, 2020 9:13am December 22, 2020 10:53am take 20 mg on 11/05/20 and 11/06/20, then resume 10 mg. Start: 11-04-2020 End: 12-22-2020 Methimazole Discontinued 10 MG PO DAILY November 04, 2020 5:43pm December 22, 2020 8:13am take 20 mg on 11/05/20 and 11/06/20, then resume 10 mg. Start: 09-03-2020 End: 11-04-2020 take 1 tablet by mouth once daily Methimazole 10 mg tablet Discontinued 10 mg PO DAILY 30 September 24, 2020 11:16am November 04, 2020 6:44pm methylPREDNISolone 4 mg oral tablet (17 sources) Corticosteroid Start: 07-09-2022 End: 07-15-2022 take 1 tablet by mouth once Methylprednisolone (Medrol (Adán)) 4 mg tablets,dose pack Discontinued 4 mg PO per package directions 21 6 0 July 09, 2022 12:00am July 14, 2022 12:00am July 15, 2022 12:03am MULTIPLE VITAMIN (6 sources) Start: 08-08-2015 take 1 tablet by mouth once daily MULTIVITAMINS TABS One tablet by mouth daily MULTIPLE VITAMIN Hernesto Brar MD Start: 08-08-2015 take 1 tablet by pat once daily MULTIVITAMINS TABS One tablet by mouth daily MULTIPLE VITAMIN Toshia James RN MULTIPLE VITAMINS-MINERALS (4 sources) Start: 08-14-2015 End: 09-15-2015 MULTIVITAMIN & MINERAL LIQD as directed MULTIPLE VITAMINS-MINERALS [id number] Hernesto Brar MD Start: 08-14-2015 MULTIVITAMIN & MINERAL LIQD as directed MULTIPLE VITAMINS-MINERALS [id number] Hernesto Brar MD MULTIPLE VITAMINS-MINERALS (2 sources) Start: 08-14-2015 MULTIVITAMIN & MINERAL LIQD as directed MULTIPLE VITAMINS-MINERALS [id number] Hernesto Brar MD Start: 08-14-2015 End: 09-15-2015 MULTIVITAMIN & MINERAL LIQD as directed MULTIPLE VITAMINS-MINERALS [id number] Hernesto Brar MD Multivitamin (Daily Multi-Vitamin) tablet (15 sources) Start: 10-04-2022 End: 01-12-2023 Multivitamin (Daily Multi-Vitamin) tablet Discontinued 1 {tbl} PO DAILY October 04, 2022 1:00am January 12, 2023 11:12am Start: 10-04-2022 End: 01-12-2023 take 1 tablet by mouth once daily Multivitamin (Daily Multi-Vitamin) tablet Discontinued 1 TABLET PO DAILY October 04, 2022 12:00am January 12, 2023 10:12am Start: 10-04-2022 End: 01-12-2023 take 1 tablet by mouth once daily Multivitamin (Daily Multi-Vitamin) tablet Discontinued 1 TABLET PO DAILY October 04, 2022 1:00am January 12, 2023 11:12am Start: 10-04-2022 take 1 tablet by pat once daily Multivitamin (Daily Multi-Vitamin) tablet Active 1 TABLET PO DAILY October 04, 2022 12:00am Multivitamin With Folic Acid (15 sources) Start: 09-29-2015 End: 06-23-2020 take 1 tablet by mouth once daily Multivitamin With Folic Acid Discontinued 1 TABLET PO DAILY September 29, 2015 12:00am June 23, 2020 8:34am Start: 09-29-2015 End: 06-23-2020 take 1 tablet by mouth once daily Multivitamin With Folic Acid Discontinued 1 TABLET PO DAILY September 29, 2015 1:00am June 23, 2020 9:34am Multivitamin With Folic Acid 1 TABLET tablet (4 sources) Start: 09-29-2015 End: 06-23-2020 take 1 tablet by mouth once daily Multivitamin With Folic Acid 1 TABLET tablet Discontinued 1 {tbl} PO DAILY September 29, 2015 1:00am June 23, 2020 9:34am Nirmatrelvir-Ritonavir (14 sources) Start: 12-12-2022 End: 01-12-2023 Nirmatrelvir-Ritonavir (Paxlovid (Eua)) 300 mg (150 mg x 2)-100 mg tablets,dose pack Discontinued 0 PO .COMPLEX 30 December 12, 2022 1:00am January 12, 2023 11:12am take TWO 150 mg tablets of nirmatrelvir with ONE 100 mg tablet of ritonavir twice daily for 5 days Start: 12-12-2022 End: 01-12-2023 Nirmatrelvir-Ritonavir (Paxl ovid (Eua)) 300 mg (150 mg x 2)-100 mg tablets,dose pack Discontinued 0 PO .COMPLEX December 12, 2022 12:00am January 12, 2023 10:12am take TWO 150 mg tablets of nirmatrelvir with ONE 100 mg tablet of ritonavir twice daily for 5 days Start: 12-12-2022 End: 01-12-2023 Nirmatrelvir-Ritonavir (Paxl ovid (Eua)) 300 mg (150 mg x 2)-100 mg tablets,dose pack Discontinued 0 PO .COMPLEX December 12, 2022 1:00am January 12, 2023 11:12am take TWO 150 mg tablets of nirmatrelvir with ONE 100 mg tablet of ritonavir twice daily for 5 days Start: 12-12-2022 Nirmatrelvir-R itonavir (Paxlovid (Eua)) 300 mg (150 mg x 2)- 100 mg tablets,dose pack Active 0 PO .COMPLEX December 12, 2022 12:00am take TWO 150 mg tablets of nirmatrelvir with ONE 100 mg tablet of ritonavir twice daily for 5 days nitrofurantoin, macrocrystals 25 mg / nitrofurantoin, monohydrate 75 mg oral capsule (19 sources) Nitrofuran Antibacterial Start: 05-14-2021 End: 05-21-2021 take 1 capsule by mouth every twelve hours at mealtime Nitrofurantoin Monohyd/M-Cryst (Macrobid) 100 mg capsule Discontinued 100 mg PO Q12H 14 7 0 May 14, 2021 12:00am May 20, 2021 12:00am May 21, 2021 12:01am must administer with a meal/food oxyCODONE hydrochloride 5 mg oral tablet (19 sources) Opioid Agonist Start: 09-08-2017 End: 03-08-2018 take 5-10 mg by mouth every four hours as needed for pain Oxycodone 5 MG tablet Discontinued 5 - 10 mg PO EVERY 4 HOURS NEEDED as needed for Pain 80 0 September 08, 2017 1:00am March 08, 2018 1:28pm pravastatin sodium 20 mg oral tablet (17 sources) HMG-CoA Reductase Inhibitor Start: 06-17-2022 End: 07-09-2022 take 1 tablet by mouth once daily Pravastatin 20 mg tablet Discontinued 20 mg PO DAILY 90 3 June 17, 2022 12:00am July 09, 2022 2:23pm Psyllium (METAMUCIL) powd (7 sources) Start: 10-17-2013 Psyllium (METAMUCIL) powd Take by mouth. 0 10/17/2013 Active Comment on above: Take by mouth. Psyllium Seed (Sugar) (15 sources) Start: 09-29-2015 End: 06-23-2020 take 575 g by mouth once daily Psyllium Seed (Sugar) Discontinued 575 GM PO DAILY September 29, 2015 12:00am June 23, 2020 8:33am Start: 09-29-2015 End: 06-23-2020 take 575 g by mouth once daily Psyllium Seed (Sugar) Discontinued 575 GM PO DAILY September 29, 2015 1:00am June 23, 2020 9:33am Psyllium Seed (Sugar) (Metamucil (Sugar)) powder (19 sources) Start: 05-31-2022 End: 05-16-2024 Psyllium Seed (Sugar) (Metam ucil (Sugar)) powder Discontinued 1 tbsp PO NEEDED as needed for Constipation May 31, 2022 12:00am May 16, 2024 1:26pm Start: 05-31-2022 Psyllium Seed (Sugar) (Metamucil (Sugar)) powder Active 1 tbsp PO NEEDED May 31, 2022 12:00am Start: 05-31-2022 Psyllium Seed (Sugar) (Metamucil (Sugar)) powder Active 1 tbsp PO NEEDED May 30, 2022 11:00pm Start: 05-31-2022 Psyllium Seed (Sugar) (Metamucil (Sugar)) powder Active 1 tbsp PO DAILY May 31, 2022 12:00am Psyllium Seed (Sugar) 575 GM powder (4 sources) Start: 09-29-2015 End: 06-23-2020 Psyllium Seed (Sugar) 575 GM powder Discontinued 575 g PO DAILY as needed for Constipation September 29, 2015 1:00am June 23, 2020 9:33am red yeast rice 600 mg oral capsule (20 sources) Start: 09-09-2022 End: 07-20-2023 take 1 capsule by mouth once daily Red Yeast Rice 600 mg Capsule Discontinued 1200 mg PO DAILY September 09, 2022 1:00am July 20, 2023 1:05pm CHOLESTEROL give with meal/snack Start: 09-09-2022 End: 07-20-2023 take 1200 mg by mouth once daily Red Yeast Rice Discontinued 1200 MG PO DAILY September 09, 2022 12:00am July 20, 2023 12:05pm give with meal/snack Start: 10-02-2021 End: 06-16-2022 take 1 tablet by mouth once daily Red Yeast Rice 600 mg tablet Discontinued 600 mg PO DAILY October 02, 2021 1:00am June 16, 2022 11:49am give with meal/snack Comment on above: Take by mouth. rivaroxaban 10 mg oral tablet (19 sources) Factor Xa Inhibitor Start: 7 End: 8 take 1 tablet by mouth once daily Rivaroxaban 10 MG tablet Discontinued 10 mg PO DAILY@0600 12 0 September 08, 2017 1:00am March 08, 2018 1:28pm Semaglutide (8 sources) Start: 4 End: 5 Semaglutide (Ozempic) 0.25 mg or 0.5 mg (2 mg/3 mL) pen injector Discontinued 0.25 mg SC PULLIAM September 06, 2024 1:00am August 07, 2025 9:16am Start: 09-06-2024 Start: 08-16-2024 End: 09-06-2024 Semaglutide (Ozempic) 0.25 m g or 0.5 mg (2 mg/3 mL) pen injector Discontinued 0.25 mg SC EVERY WEEK 3 August 16, 2024 12:00am September 06, 2024 12:57pm spironolactone 25 mg oral tablet (16 sources) Aldosterone Antagonist Start: 01-03-2024 End: 08-07-2025 take 1 tablet by mouth once daily Spironolactone 25 mg tablet Discontinued 25 mg PO DAILY 90 November 12, 2024 11:46am August 07, 2025 9:19am Heart Problems Active Problems Problem Classification Problem Date Documented Da te Episodic/Chronic Abdominal pain (20 sources) Right upper quadrant pain; Translations: [Right upper quadrant pain] Onset: 9 Resolved: 3 05-20-2021 Episodic Allergic reactions (20 sources) Allergic condition; Translations: [Allergy, unspecified, initial encounter] 08-04-2005 Episodic Asthma (20 sources) Unspecified asthma, uncomplicated; Translations: [Asthma, unspecified type, unspecified] 08-04-2005 Chronic Blindness and vision defects (20 sources) Visual disturbance; Translations: [Unspecified visual disturbance] Onset: 5 08-25-2015 Episodic Cancer of thyroid (20 sources) Malignant tumor of thyroid gland; Translations: [Malignant neoplasm of thyroid gland] Chronic Cardiac dysrhythmias (20 sources) Atrial fibrillation; Translations: [Unspecified atrial fibrillation] Onset: 5 Chronic Complications of surgical procedures or medical care (20 sources) Postoperative hypothyroidism; Translations: [Postprocedural hypothyroidism] Onset: 4 Chronic Complications of surgical procedures or medical care (20 sources) Skin reaction to suture material; Translations: [Disruption of wound, unspecified, initial encounter] Episodic Conditions associated with dizziness or vertigo (20 sources) Lightheadedness; Translations: [Dizziness and giddiness] Onset: 5 03-28-2018 Episodic Coronary atherosclerosis and other heart disease (17 sources) Coronary atherosclerosis; Translations: [Atherosclerotic heart disease of [place] coronary artery with unspecified angina pectoris] Onset: 5 07-21-2023 Chronic Diabetes mellitus without complication (20 sources) Diabetes mellitus; Translations: [Type 2 diabetes mellitus without complication] Onset: 4 Resolved: 4 08-08-2015 Chronic Disorders of lipid metabolism (20 sources) Hyperlipidemia; Translations: [Other hyperlipidemia] Onset: 7 08-08-2015 Chronic Esophageal disorders (20 sources) Gastroesophageal reflux disease; Translations: [Gastro-esophageal reflux disease without esophagitis] Onset: 9 08-07-2009 Chronic Essential hypertension (20 sources) Hypertensive disorder; Translations: [Essential hypertension] Onset: 5 Resolved: 5 08-08-2015 Chronic Fluid and electrolyte disorders (14 sources) Hyponatremia; Translations: [Hypo-osmolality and hyponatremia] 12-12-2022 Episodic Gastrointestinal hemorrhage (4 sources) Rectal hemorrhage; Translations: [Hemorrhage of anus and rectum] 07-23-2024 Episodic Genitourinary symptoms and ill-defined conditions (6 sources) Incontinence; Translations: [Mixed incontinence] Onset: 5 08-02-2025 Chronic Genitourinary symptoms and ill-defined conditions (20 sources) Blood in urine; Translations: [Hematuria, unspecified] 05-20-2021 Episodic Headache; including migraine (17 sources) Headache; Translations: [Headache] 01-12-2023 Episodic Heart valve disorders (8 sources) Nonrheumatic aortic (valve) stenosis; Translations: [Mild aortic valve stenosis] Onset: 5 10-12-2024 Chronic Malaise and fatigue (20 sources) Fatigue; Translations: [Other fatigue] Onset: 5 08-14-2015 Episodic Menopausal disorders (8 sources) Menopausal syndrome; Translations: [Menopausal and female climacteric states] Chronic Nausea and vomiting (3 sources) Nausea; Translations: [Nausea] Onset: 5 08-14-2025 Episodic Nonmalignant breast conditions (2 sources) Unspecified lump in the left breast, lower outer quadrant; Translations: [Mammographic calcification found on diagnostic imaging of breast] Onset: Episodic Nonspecific chest pain (20 sources) Chest pain; Translations: [Chest pain, unspecified] Onset: 5 08-08-2015 Episodic Nutritional deficiencies (20 sources) Vitamin D deficiency; Translations: [Vitamin D deficiency, unspecified] Onset: 6 08-04-2016 Chronic Occlusion or stenosis of precerebral arteries (20 sources) Carotid artery stenosis; Translations: [Left carotid artery stenosis] Onset: 5 08-08-2015 Chronic Osteoarthritis (20 sources) Arthritis of left foot; Translations: [Primary osteoarthritis, left ankle and foot] Chronic Other circulatory disease (1 source) Abnormal peripheral pulse; Translations: [Other specified symptoms and signs involving the circulatory and respiratory systems] Episodic Other connective tissue disease (17 sources) Swelling of lower limb; Translations: [Other specified soft tissue disorders] 07-12-2022 Episodic Other connective tissue disease (3 sources) Other specified soft tissue disorders; Translations: [Swelling of limb] Episodic Other gastrointestinal disorders (4 sources) Dysphagia; Translations: [Dysphagia, unspecified] 05-16-2024 Episodic Other lower respiratory disease (14 sources) Cough; Translations: [Cough] 12-12-2022 Episodic Other lower respiratory disease (8 sources) Dyspnea on exertion; Translations: [Other forms of dyspnea] 07-20-2023 Episodic Other lower respiratory disease (5 sources) Other forms of dyspnea; Translations: [Other respiratory abnormalities] 07-20-2023 Episodic Other nutritional; endocrine; and metabolic disorders (5 sources) Body mass index (BMI) 45.0-49.9, adult; Translations: [Body mass index (BMI) 40.0-44.9, adult] Onset: 5 10-04-2016 Chronic Other nutritional; endocrine; and metabolic disorders (1 source) Body mass index (BMI) 40.0-44.9, adult; Translations: [Body mass index (BMI) 40.0-44.9, adult] Onset: 5 08-14-2015 Chronic Other nutritional; endocrine; and metabolic disorders (20 sources) Body mass index 40+ - severely obese; Translations: [Body mass index (BMI) 45.0-49.9, adult] Onset: 3 09-26-2013 Chronic Other nutritional; endocrine; and metabolic disorders (20 sources) Obesity; Translations: [Obesity, unspecified] Onset: 9 Resolved: 5 07-23-2021 Chronic Other nutritional; endocrine; and metabolic disorders (20 sources) Obesity, unspecified; Translations: [Obesity, unspecified] Chronic Other screening for suspected conditions (not mental disorders or infectious disease) (20 sources) Patient encounter status; Translations: [Encounter for screening mammogram for malignant neoplasm of breast] Onset: 4 Episodic Other skin disorders (1 source) Ingrowing nail; Translations: [Ingrowing nail] Episodic Other skin disorders (1 source) Pyogenic granuloma; Translations: [Pyogenic granuloma] Episodic Other skin disorders (1 source) Nonscarring hair loss, unspecified; Translations: [Hair loss] Onset: 5 Episodic Pulmonary heart disease (20 sources) Pulmonary hypertension; Translations: [Pulmonary hypertension, unspecified] Onset: 6 03-31-2016 Chronic Residual codes; unclassified (1 source) Family history of cancer; Translations: [Family history of malignant neoplasm, unspecified] Episodic Residual codes; unclassified (1 source) Family history of malignant neoplasm of pancreas; Translations: [Family history of malignant neoplasm of digestive organs] Episodic Residual codes; unclassified (4 sources) History of hysterectomy for benign disease; Translations: [Acquired absence of both cervix and uterus] 08-02-2025 Episodic Residual codes; unclassified (1 source) Flushing; Translations: [Hot flashes] Onset: 5 Episodic Rheumatoid arthritis and related disease (20 sources) Rheumatoid arthritis; Translations: [Rheumatoid arthritis, unspecified] Onset: 5 Resolved: 6 08-04-2016 Chronic Spondylosis; intervertebral disc disorders; other back problems (19 sources) Backache; Translations: [Dorsalgia, unspecified] 2021 Episodic Sprains and strains (20 sources) Strain of foot; Translations: [Strain of unspecified muscle and tendon at ankle and foot level, left foot, initial encounter] Onset: 7 Resolved: 6 Episodic Thyroid disorders (20 sources) Non-toxic multinodular goiter; Translations: [Nontoxic multinodular goiter] Onset: 9 10-21-2016 Chronic Urinary tract infections (20 sources) Urinary tract infectious disease; Translations: [Urinary tract infection, site not specified] 05-12-2021 Episodic Viral infection (14 sources) Disease caused by 2019-nCoV; Translations: [COVID-19] 12-12-2022 Episodic Past or Other Problems Problem Classification Problem Date Documented Da te Episodic/Chronic Diabetes mellitus with complications (10 sources) Coma due to diabetes mellitus; Translations: [DM w/ coma type II, uncontrolled] Onset: 04-08-2014 Resolved: 07-27-2014 07-27-2014 Chronic Mood disorders (10 sources) Depressive disorder; Translations: [Depression] Onset: 08-04-2016 Resolved: 10-19-2019 10-19-2019 Chronic Nonmalignant breast conditions (10 sources) Fibrocystic disease of breast; Translations: [Diffuse cystic mastopathy of unspecified breast] Resolved: 08-04-2016 08-04-2016 Chronic Results Test Name Value Interpretation Reference Range Facility CNOV 09-05-2025 CNOV Office Visit (OBGYWM ) DOWNEYMACY REA ([id number]) 1950 F Date Time Provider Department 09/05/25 8:40 AM REE FLETCHER OBJAZMINE During your visit today, we recorded the following information about you: Blood pressure Weight 128/82 107 kg Ree Fletcher MD 09/05/2025 12:53 PM Signed Macy Downey is a 75 year old female who presents for follow up of breast imaging. HPI: Macy states she noticed a small lump in her left breast. Otherwise denies breast changes or new breast symptoms. States she has lipomas elsewhere. She has been having dizziness and nausea for which she is seeing her PCP and senior research analyst for. Has been weaning off the estradiol patch. Is having hot flashes and night sweats. She is not ready to continue to decrease the estradiol patch at this time. She does experience chest pain and anxiety since decreasing estradiol patch. She has recently noticed hair loss that is very bothersome for her. Macy says at times she does not want to leave the house due to the hair loss. OB History Gravida3 Para3 Term3 Preterm0 AB0 Living3 SAB0 IAB0 Ectopic0 Multiple0 Live Births0 Comment: 2nd was twins, one twin . 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 History LMP: Hysterectomy Age at Menarche: Age at First : Age at Menopause: 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 History Comments: Sexual Activity: Not Currently; Male; hysterectomy Contraception: Surgical PAST MEDICAL HISTORY Diagnosis Date Abdominal pain, unspecified site Acute gastritis 08/07/2009 Allergy, unspecified not elsewhere classified Diffuse cystic mastopathy Diverticulosis of colon (without mention of hemorrhage) Diverticulosis Empty sella (HCC) Endometriosis s/p SUNIL BSO Esophageal reflux Esophagitis Fatty liver disease, nonalcoholic Heart murmur Hiatal hernia 08/07/2009 Hot flashes due to menopause Hypothyroidism Morbid obesity (HCC) Multiple thyroid nodules Myalgia and myositis, unspecified Pulmonary fibrosis (HCC) 2016 minor in right lung Pulmonary hypertension (HCC) Seen by Dr. Brar Rheumatoid arthritis(714.0) Superficial thrombophlebitis Thyroid cancer (HCC) Type II or unspecified type diabetes mellitus without mention of complication, not stated as uncontrolled Unspecified asthma(493.90) Unspecified chronic bronchitis (HCC) Chronic bronchitis Unspecified essential hypertension PAST SURGICAL HISTORY Procedure Laterality Date ANESTH OPEN/SURG ARTHRS TOTAL KNEE ARTHROPLASTY Right 2017 APPENDECTOMY 1967 EGD TRANSORAL BIOPSY SINGLE/MULTIPLE 08/07/2009 HH, gastritis ESOPHAGOGASTRODUODENOSCOPY TRANSORAL DIAGNOSTIC 10/19/2013 EGD FNA WITH IMAGING 03/26/2010 U/S FNA right thyroid x 1 and left x 2 LAPAROSCOPY DIAGNOSTIC endometriosis PAST SURGICAL HISTORY OF 09/30/2015 Right heart cath, Left heart cath, left ventriculogram, coronary arteriography PAST SURGICAL HISTORY OF 07/2018 Stem cell surgery PAST SURGICAL HISTORY OF 2022 had carotid artery cleaned out SALPINGO-OOPHORECTOMY COMPL/PRTL UNI/BI SPX 1987 Salpingo-oophorectomy THYROIDECTOMY TOTAL/COMPLETE 12/23/2020 thyroid cancer TONSILLECTOMY PRIMARY/SECONDARY Tonsillectomy TOTAL ABDOMINAL HYSTERECT W/WO RMVL TUBE OVARY 1987 Hysterectomy, SUNIL for benign tumor FAMILY HISTORY Problem Relation Age of Onset Heart Mother other (Pulmonary fibrosis) Mother IPF? Heart Father Thyroid Father Heart Sister in her sleep Thyroid Sister Diabetes Sister other (a fib) Sister other (vasculitis) Sister Pancreatic Cancer Sister Heart Brother Pancreatic Cancer Brother Heart Brother in his sleep Cancer Paternal Grandfather bone cancer-multiple myeloma in 70's Lung Cancer Paternal Uncle 70 also brain cancer or brain mets SOCIAL HISTORY[1] Current Outpatient Medications Medication Sig sucralfate (CARAFATE) 1 gram tablet Take 1 g by mouth. MOUNJARO 2.5 mg/0.5 mL pen injector Inject 2.5 mg subcutaneously one time a week. amLODIPine (NORVASC) 5 mg tablet Take 5 mg by mouth once daily. metoprolol tartrate, short acting, (LOPRESSOR) 25 mg tablet Take 25 mg by mouth two times a day. estradiol (RAHUL) 0.05 mg/24 hr patch Apply 1 patch as directed two times a week. estradiol (ESTRACE) 0.01 % (0.1 mg/gram) vaginal cream Use vaginally one time a week. ranolazine ER (RANEXA) 500 mg 12 hr tablet Take 1 tablet by mouth two times a day. fluorometholone (FML LIQUID FILM) 0.1 % ophthalmic suspension 1 Drop twice daily. ascorbic acid (VITAMIN C ORAL) Take by mouth. aspirin 81 mg cap Take by mouth. IBUPROFEN ORAL Take 200 mg by mouth twice daily as needed. fluticasone (FLONASE) 50 mcg/actuation nasal spray Use 2 Sprays in each nostril once daily. cholecalciferol (VITAMIN D3) 5,000 unit tab Take 5,000 Units by mouth once daily. Psyllium powd Take by mouth. levothyroxine (SYNTHROID) 137 mcg tablet Take 137 mcg by m (more content not included)... Normal [facility] Hepatobilliary Img w/Pharm I nton 08-28-2025 Hepatobilliary Img w/Pharm Int [facility] Services [address] [place] [address] Hepatobilliary Img w/Pharm Int MR#: [id number] Acct: [id number] Name: MACY DOWNEY Rep #: [id number] : 1950 F 75 From: Esa Barclay PCP: Dr. Ora Nam MD Status: REG CLI Study: Hepatobilliary Img w/Pharm Int Date of Exam: 1 Exam# [id number] Ordering Dr: Ora Nam MD PROCEDURE: HEPATOBILLIARY IMG W/PHARM INT 08/28/2025 REASON FOR EXAM: RIGHT UPPER QUADRANT DISCOMFORT, NAUSEA TECHNIQUE: Procedure Code: NMHBIWP Modality: NM Procedure: HEPATOBILLIARY IMG W/PHARM INT, with gallbladder ejection fraction Intravenous Choletec with planar imaging of the abdomen. RADIOPHARMACEUTICAL: Intravenous administration 5.7 mCi technetium 99 M mebrofenin. For the gallbladder ejection fraction component of the examination, 2.1 mcg sincalide was administered over 15 minutes. FINDINGS: Satisfactory hepatic uptake and excretion was seen. Normal gallbladder visualization with the gallbladder identified by 45 minutes. Small bowel activity was seen by the 15 minute film. A normal gallbladder ejection fraction of 61% was calculated at the 20 minute timeframe. NM/Hepatobilliary Img w/Pharm Int IMPRESSION: 1. Normal gallbladder ejection fraction of 61%. 2. Negative hepatobiliary scan. Reading Location: [place] [address] CC: Dr. Ora Nam MD Digital Marketing Consultant: Signed Normal [facility] MR/BMS.Hellen 08-27-2025 MR/BMS.BVS [facility] [address] [place] [address]. [address] [place] [address] OFFICE VISIT Date of Service: 08/27/25 MR#: [id number] Acct: [id number] Name: MACY DOWNEY VERONICA Rep #: [id number] : 1950 Provider: SHAHRAM Guerra Age/Sex: 75/F Location: [facility] Status: Signed Intake Vital Signs 10/12/24 12:56 08/14/25 08:56 08/27/25 14:28 Height 5 ft 2 in 5 ft 2 in Weight: 236 lb BP 144/70 H Blood Pressure Location Lt brachial Position Sitting Respiration 16 Pulse 71 Pulse Source Monitor Temp 98 F Temp Source Temporal Pulse Oximetry (%) 98 Oxygen Delivery Method room air Intake Visit Reasons: EST CARE Is patient in pain?: No Allergies amoxicillin Allergy (Verified 08/27/25 14:30) Unknown duloxetine (From Cymbalta) Allergy (Verified 08/27/25 14:30) neuropathy losartan (Losartan) Allergy (Verified 08/27/25 14:30) Unknown ramipril Allergy (Verified 08/27/25 14:30) Unknown ranitidine HCl (From Zantac) Allergy (Verified 08/27/25 14:30) Unknown meloxicam (From Mobic) Adverse Reaction (Severe, Verified 08/27/25 14:30) Heartburn celecoxib (From Celebrex) Adverse Reaction (Verified 08/27/25 14:30) Upset Stomach cortisone Adverse Reaction (Verified 08/27/25 14:30) emotional issues glimepiride Adverse Reaction (Verified 08/27/25 14:30) Nausea/Vom/Diarrhea metformin HCl (From Glucophage) Adverse Reaction (Verified 08/27/25 14:30) Nausea/Vom/Diarrhea methotrexate Adverse Reaction (Verified 08/27/25 14:30) Unknown Penicillins Adverse Reaction (Verified 08/27/25 14:30) Nausea/Vom/Diarrhea pravastatin Adverse Reaction (Verified 08/27/25 14:30) MUSCLE PAIN Medications ???Medication ???Instructions ???Recorded ???Confirmed ???Type fluticasone propionate 50 1 spray NASAL DAILY PRN Congestion 09/29/15 08/27/25 History mcg/actuation nasal spray,suspension cholecalciferol (vitamin D3) 50 5,000 unit PO DAILY SUPPLEMENT 08/27/25 History mcg (2,000 unit) capsule ascorbate calcium (vitamin C) 500 500 mg PO DAILY SUPPLEMENT 08/27/25 History mg tablet artifi.tears(hypromellose)( PF) 0.3 1 drp ophthalmic (eye) DAILY PRN 05/31/22 08/27/25 History % eye drops Dry Eye(S) aspirin 81 mg tablet,delayed 81 mg PO QDAY HEART HEALTH 2 08/27/25 History release (Adult Aspirin Regimen) estradiol 0.1 mg/24 hr semiweekly 0.1 mg topical SUWE MENOPAUSE 08/2108/27/25 History transdermal patch (Vivelle-Dot) ibuprofen 800 mg tablet 800 mg PO BID PRN PAIN 01/12/23 History omeprazole magnesium 20 mg 40 mg PO DAILY GERD 05/22/2408/27 History capsule,delayed release (Acid 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)) psyllium husk 0.4 gram capsule 0.4 g PO DAILY PRN constipation 08/27/25 History (Metamucil) estradiol 0.01% (0.1 mg/gram) 1 g vaginal 2XW #42.5 grams 08/27/25 Rx vaginal cream amlodipine 5 mg tablet 5 mg PO QDAY 08/07/25 08/27/25 His tory levothyroxine 175 mcg tablet 137 mcg PO DAILY 08/07/25 08/27/25 History ondansetron 4 mg disintegrating 4 mg PO Q8H PRN nausea and 5 08/27/25 Rx tablet vomiting #20 tabs tirzepatide 2.5 mg/0.5 mL 2.5 mg (0.5 mL) subcut QWEEK #2 mL 08/15/25 08/27/25 Rx subcutaneous pen injector ranolazine 500 mg tablet,extended 500 mg PO .COMPLEX #360 tabs 08/0108/27/25 Rx release,12 hr metoprolol tartrate 100 mg tablet 50 mg (1/2 x 100 mg) PO BID DO NO T 08/21/25 08/27/25 Rx USE Aurobin brand generic #180 tabs Is last menstrual period known: No Post menopausal: Yes Patient : No Have you fallen in the past year?: No PFSH Medical History Nausea RUQ pain PONV (postoperative nausea and vomiting) Unilateral vocal cord paralysis Graves disease Thyroid disease Rheumatoid arthritis High cholesterol TIA (transient ischemic attack) History of hiatal hernia Diverticulosis History of colitis Shortness of breath on exertion Chronic cough Leg cramps History of edema Hypertension Epigastric pain Rectal bleeding Dysphagia Abnormal stress test Carotid stenosis Wears glasses Anxiety Cancer Hyperthyroidism Diabetes Bladder leak Hemochromatosis Fatty liver Restless leg Back pain Concussion Mini stroke Light-headedness Dietary restriction Hernia, hiatal Hx of duodenal ulcer Diverticulitis GERD (gastroesophageal reflux disease) Non-smoker History of pain when walking Edema Rheumatic fever Cardiology follow-up encounter H/O echocardiogram History of stress test Obesity Thyroid cancer Asthma Knee pain Cancer Arthritis Postprocedural hypothyroidism Paroxysmal atrial fibrillation Atrial fibrillation Hypothyroidism stem cell re (more content not included)... Normal [facility] Abdomen Limitedon 08-14-2025 [facility]domen Limited [facility] [address] [place] [address] Abdomen Limited MR#: [id number] Acct: [id number] Name: MACY DOWNEY Rep #: [id number] : 1950 F 74 From: Delano razo MD PCP: Dr. Ora Nam MD Status: REG CLI Study: Abdomen Limited Date of Exam: 08/14/25 Exam# [id number] Ordering Dr: Ora Nam MD PROCEDURE: ABDOMEN LIMITED 08/14/2025 REASON FOR EXAM: RUQ PAIN, NAUSEA TECHNIQUE: Procedure Code: USABDL Modality: US Procedure: ABDOMEN LIMITED COMPARISON: CT scan dated August 03, 2024. FINDINGS: Liver: Grossly normal size and echotexture. Gallbladder: No stones, sludge, wall thickening or tenderness. Common bile duct: Normal measuring 5.5 mm . Pancreas: Visualized portions are unremarkable. The distal body and tail are obscured by bowel gas. Other: Visualized portions of the right kidney are unremarkable. No right upper quadrant ascites. US/Abdomen Limited IMPRESSION: NORMAL RIGHT UPPER QUADRANT ULTRASOUND. Limited visualization of the body and tail portion of the pancreas. Reading Location: [place] [address] CC: Dr. Ora Nam MD Digital Marketing Consultant: Signed Normal [facility] Absolute lymphocyte countOrd ered By: Ora Nam on 08-14-2025 Lymphocytes Auto (Unsp spec) [#/Vol] 1.84 10*3/uL 0.83-4.51 [facility] Absolute neutrophil countOrd ered By: Ora Nam on 08-14-2025 Neutrophils (Bld) [#/Vol] 4.5 10*3/uL 2.0-7.7 [facility] Anion gap in Serum or Plasma Ordered By: Ora Nam on 08-14-2025 Anion gap [Moles/Vol] 10 mmol/L - [facility] Automated lymphocyte count a s percentage of total leukocytesOrdered By: Ora Nam on 08-14-2025 Lymphocytes/100 WBC Auto (Unsp spec) 25.0 % [facility] BUN/creatinine ratioOrdered By: Ora Nam on 08-14-2025 Urea nitrogen/Creatinine [Mass ratio] 21.8 mg/mg High - [facility] Basophil percentageOrdered B y: Ora Nam on 08-14-2025 Basophils/100 WBC (Bld) 0.5 % 0-1 [facility] Bilirubin, totalOrdered By: Ora Nam on 08-14-2025 Bilirubin [Mass/Vol] 0.60 mg/dL 0.00-1.30 [facility] CBC W/Diff, Automatedon 07-31 Absolute Lymph 1.84 X10 3/uL Normal 0.83-4.51 [facility] Comment on above: Performed By: #### L 100.0100, L500.4050 #### [facility] [address] [place], [address] Absolute Neut 4.5 X10 3/uL Normal 2.0-7.7 [facility] Comment on above: Performed By: #### L 100.0100, L500.4050 #### [facility] [address] [place], [address] Basophils/100 WBC (Bld) 0.5 % Normal 0-1 [facility] Comment on above: Performed By: #### L 100.0100, L500.4050 #### [facility] [address] [place], [address] Eosinophils/100 WBC (Bld) 1.8 % Normal 0-5 [facility] Comment on above: Performed By: #### L 100.0100, L500.4050 #### [facility] [address] [place], [address] Erythrocyte distribution width (RBC) [Ratio] 13.2 % Normal 11.6-14.6 [facility] Comment on above: Performed By: #### L 100.0100, L500.4050 #### [facility] [address] [place], [address] Hematocrit (Bld) [Volume fraction] 36.2 % Low 37-47 [facility] Comment on above: Performed By: #### L 100.0100, L500.4050 #### [facility] [address] [place], [address] Hemoglobin (Bld) [Mass/Vol] 12.5 g/dL Normal 12.0-15.0 [facility] Comment on above: Performed By: #### L 100.0100, L500.4050 #### [facility] [address] [place], [address] IG% 0.400 Normal 0.0-0.9 [facility] Comment on above: Result Comment: IG% - Immature Granulocytes (promyelocytes, myelocytes and metamyelocytes) > 1% indicates that a LEFT SHIFT is Present. Performed By: #### L 100.0100, L500.4050 #### [facility] [address] [place], [address] Lymphocytes/100 WBC (Bld) 25.0 % Normal 19-41 [facility] Comment on above: Performed By: #### L 100.0100, L500.4050 #### [facility] [address] [place], [address] MCH (RBC) [Entitic mass] 32.6 pg High 27.0-32.0 [facility] Comment on above: Performed By: #### L 100.0100, L500.4050 #### [facility] [address] [place], [address] MCHC (RBC) [Mass/Vol] 34.5 g/dL Normal 32-36 [facility] Comment on above: Performed By: #### L 100.0100, L500.4050 #### [facility] [address] [place], [address] MCV (RBC) [Entitic vol] 94.3 fL Normal 81-99 [facility] Comment on above: Performed By: #### L 100.0100, L500.4050 #### [facility] [address] [place], [address] Monocytes/100 WBC (Bld) 10.6 % High 0-10 [facility] Comment on above: Performed By: #### L 100.0100, L500.4050 #### [facility] [address] [place], [address] Neutrophils/100 WBC (Bld) 61.7 % Normal 47-70 [facility] Comment on above: Performed By: #### L 100.0100, L500.4050 #### [facility] [address] [place], [address] Nucleated RBC (Bld) [#/Vol] 0 10*3/uL Normal 0-5 [facility] Comment on above: Performed By: #### L 100.0100, L500.4050 #### [facility] [address] [place], [address] Platelet mean volume (Bld) [Entitic vol] 8.8 fL Normal 6.2-12.0 [facility] Comment on above: Performed By: #### L 100.0100, L500.4050 #### [facility] [address] [place], [address] Platelets (Bld) [#/Vol] 215 10*3/uL Normal 150-450 [facility] Comment on above: Performed By: #### L 100.0100, L500.4050 #### [facility] [address] [place], [address] RBC (Bld) [#/Vol] 3.84 10*6/uL Low 4.2-5.4 [facility] Comment on above: Performed By: #### L 100.0100, L500.4050 #### [facility] [address] [place], [address] RDW SD 45.1 fl High 35.1-43.9 [facility] Comment on above: Performed By: #### L 100.0100, L500.4050 #### [facility] [address] [place], [address] WBC (Bld) [#/Vol] 7.4 10*3/uL Normal 4.4-11.0 [facility] Comment on above: Performed By: #### L 100.0100, L500.4050 #### [facility] [address] [place], [address] Carbon dioxide, total [Moles /volume] in Central venous bloodOrdered By: Ora Nam on 08-14-2025 CO2 [Moles/Vol] 27.0 mmol/L 21.0-32.0 [facility] [facility] Chlor[facility] assayOrdered By: Gisel Nam on 08-14-2025 Chloride [Moles/Vol] 101 mmol/L 98-108 [facility] Comprehensive Metabolic Prof ilon 08-14-2025 Albumin [Mass/Vol] 4.2 g/dL Normal 3.4-4.8 [facility] Comment on above: Performed By: #### L 100.0100, L500.4050 #### [facility] [address] [place], [address] Albumin/Globulin [Mass ratio] 1.3 {ratio} Normal 0.9-2.4 [facility] Comment on above: Performed By: #### L 100.0100, L500.4050 #### [facility] [address] [place], [address] ALK PHOS 60 U/L Normal 35-104 [facility] Comment on above: Performed By: #### L 100.0100, L500.4050 #### [facility] [address] [place], [address] ALT [Catalytic activity/Vol] 8 U/L Normal <=34 [facility] Comment on above: Performed By: #### L 100.0100, L500.4050 #### [facility] [address] [place], [address] AST [Catalytic activity/Vol] 16 U/L Normal <=31 [facility] Comment on above: Performed By: #### L 100.0100, L500.4050 #### [facility] [address] [place], [address] Bilirubin [Mass/Vol] 0.60 mg/dL Normal 0.00-1.30 [facility] Comment on above: Performed By: #### L 100.0100, L500.4050 #### [facility] [address] [place], [address] BUN/CRE 21.8 RATIO High 10-20 [facility] Comment on above: Performed By: #### L 100.0100, L500.4050 #### [facility] [address] [place], [address] Calcium [Mass/Vol] 9.5 mg/dL Normal 7.6-11.0 [facility] Comment on above: Performed By: #### L 100.0100, L500.4050 #### [facility] [address] [place], [address] Chloride [Moles/Vol] 101 mmol/L Normal 98-108 [facility] Comment on above: Performed By: #### L 100.0100, L500.4050 #### [facility] [address] [place], [address] CO2 [Moles/Vol] 27.0 mmol/L Normal 21.0-32.0 [facility] Comment on above: Performed By: #### L 100.0100, L500.4050 #### [facility] [address] [place], [address] Creatinine [Mass/Vol] 0.88 mg/dL Normal 0.70-1.20 [facility] Comment on above: Performed By: #### L 100.0100, L500.4050 #### [facility] [address] [place], [address] GAP 10 Normal 5-15 [facility] Comment on above: Performed By: #### L 100.0100, L500.4050 #### [facility] [address] [place], [address] GFR/1.73 sq M.predicted among non-blacks MDRD (S/P/Bld) [Vol rate/Area] 70 mL/min/{1.73_m2} Normal >60 [facility] Comment on above: Result Comment: mL/m in/1.73m2 CKD-EPI Creatinine Equation (2020) Performed By: #### L 100.0100, L500.4050 #### [facility] [address] [place], [address] Globulin (S) [Mass/Vol] 3.2 g/dL Normal 2.2-4.2 [facility] Comment on above: Performed By: #### L 100.0100, L500.4050 #### [facility] [address] [place], [address] Glucose [Mass/Vol] 91 mg/dL Normal 70-99 [facility] Comment on above: Performed By: #### L 100.0100, L500.4050 #### [facility] [address] [place], [address] Potassium [Moles/Vol] 4.5 mmol/L Normal 3.3-5.1 [facility] Comment on above: Performed By: #### L 100.0100, L500.4050 #### [facility] [address] [place], [address] Sodium [Moles/Vol] 138 mmol/L Normal 133-145 [facility] Comment on above: Performed By: #### L 100.0100, L500.4050 #### [facility] [address] [place], [address] T PROT 7.4 g/dL Normal 5.9-8.4 [facility] Comment on above: Performed By: #### L 100.0100, L500.4050 #### [facility] [address] [place], [address] Urea nitrogen [Mass/Vol] 19 mg/dL Normal 4-19 [facility] Comment on above: Performed By: #### L 100.0100, L500.4050 #### [facility] [address] [place], [address] Eosinophil percentageOrdered By: Ora Nam on 08-14-2025 Eosinophils/100 WBC (Bld) 1.8 % 0-5 [facility] Erythrocyte distribution wid th ratioOrdered By: Ora Nam on 08-14-2025 Erythrocyte distribution width (RBC) [Ratio] 13.2 % 11.6-14.6 [facility] Erythrocyte distribution wid th standard deviationOrdered By: Ora Nam on 08-14-2025 Erythrocyte distribution width (RBC) [Ratio] 45.1 fl High 35.1-43.9 [facility] Glomerular filtration rate ( GFR) estimation/1.73 sq m using serum, plasma, or whole bOrdered By: Ora Nam on 08-14-2025 GFR/1.73 sq M.predicted among non-blacks MDRD (S/P/Bld) [Vol rate/Area] 70 mL/min/{1.73_m2} >60 [facility] Comment on above: mL/min/1.73m2 CKD-EP I Creatinine Equation (2020) Hematocrit Auto (Bld) [Volum e fraction]Ordered By: Ora Nam on 08-14-2025 Hematocrit (Bld) [Volume fraction] 36.2 % Low 37-47 [facility] Hemoglobin measurementOrdere d By: Ora Nam on 08-14-2025 Hemoglobin (Bld) [Mass/Vol] 12.5 g/dL 12.0-15.0 [facility] Immature granulocytes/100 WB C Auto (Bld)Ordered By: Ora Nam on 08-14-2025 Immature granulocytes/100 WBC (Bld) 0.400 % 0.0-0.9 [facility] Comment on above: IG% - Immature Granu locytes (promyelocytes, myelocytes and metamyelocytes) > 1% indicates that a LEFT SHIFT is Present. Laboratory - Chemistry and C hemistry - challengeOrdered By: Ora Nam on 08-14-2025 AST [Catalytic activity/Vol] 16 U/L <32 [facility] MCV (mean corpuscular volume ) determinationOrdered By: Ora Nam on 08-14-2025 MCV (RBC) [Entitic vol] 94.3 fL 81-99 [facility] MR/BMS.IMBon 08-14-2025 MR/BMS.B [facility] [address] [place] [address] OFFICE VISIT Date of Service: 08/14/25 MR#: [id number] Acct: [id number] Name: MACY DOWNEY VERONICA Rep #: [id number] : 1950 Provider: Dr. Ora cotto MD Age/Sex: 74/F Location: [facility] Status: Signed Intake Vital Signs 10/12/24 12:56 08/07/25 11:27 08/14/25 08:56 Height 5 ft 2 in 5 ft 2 in 5 ft 2 in Weight: 233 lb 4 oz BMI 42.6 BP 120/83 H Blood Pressure Location Lt brachial Position Sitting Respiration 16 Pulse 65 Pulse Source Monitor Temp 98.0 F Temp Source Temporal Pulse Oximetry (%) 98 Oxygen Delivery Method room air Intake Visit Reasons: Annual/Physical Chief Complaint: Abdomina pain, nausea, dizziness, blurry vision Pharmacy Associate Required: No Accompanied by: Is patient in pain?: Yes (Abdominal pain) Pain scale (1-10): 2 Allergies amoxicillin Allergy (Verified 08/14/25 08:46) Unknown duloxetine (From Cymbalta) Allergy (Verified 08/14/25 08:46) neuropathy losartan (Losartan) Allergy (Verified 08/14/25 08:46) Unknown ramipril Allergy (Verified 08/14/25 08:46) Unknown ranitidine HCl (From Zantac) Allergy (Verified 08/14/25 08:46) Unknown meloxicam (From Mobic) Adverse Reaction (Severe, Verified 08/14/25 08:46) Heartburn celecoxib (From Celebrex) Adverse Reaction (Verified 08/14/25 08:46) Upset Stomach cortisone Adverse Reaction (Verified 08/14/25 08:46) emotional issues glimepiride Adverse Reaction (Verified 08/14/25 08:46) Nausea/Vom/Diarrhea metformin HCl (From Glucophage) Adverse Reaction (Verified 08/14/25 08:46) Nausea/Vom/Diarrhea methotrexate Adverse Reaction (Verified 08/14/25 08:46) Unknown Penicillins Adverse Reaction (Verified 08/14/25 08:46) Nausea/Vom/Diarrhea pravastatin Adverse Reaction (Verified 08/14/25 08:46) MUSCLE PAIN Medications ???Medication ???Instructions ???Recorded ???Confirmed ???Type fluticasone propionate 50 1 spray NASAL DAILY PRN Congestion 09/29/15 08/14/25 History mcg/actuation nasal spray,suspension cholecalciferol (vitamin D3) 50 5,000 unit PO DAILY SUPPLEMENT 08/14/25 History mcg (2,000 unit) capsule ascorbate calcium (vitamin C) 500 500 mg PO DAILY SUPPLEMENT 08/14/25 History mg tablet artifi.tears(hypromellose)( PF) 0.3 1 drp ophthalmic (eye) DAILY PRN 05/31/22 08/14/25 History % eye drops Dry Eye(S) aspirin 81 mg tablet,delayed 81 mg PO QDAY [facility]ART HEALTH 2 08/14/25 History release (Adult Aspirin Regimen) estradiol 0.1 mg/24 hr semiweekly 0.1 mg topical SUWE MENOPAUSE 08/2108/14/25 History transdermal patch (Vivelle-Dot) ibuprofen 800 mg tablet 800 mg PO BID PRN PAIN 01/12/23 History omeprazole magnesium 20 mg 40 mg PO DAILY GERD 05/22/2408/14 History capsule,delayed release (Acid 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)) psyllium husk 0.4 gram capsule 0.4 g PO DAILY PRN constipation 08/14/25 History (Metamucil) estradiol 0.01% (0.1 mg/gram) 1 g vaginal 2XW #42.5 grams 08/14/25 Rx vaginal cream metoprolol tartrate 100 mg tablet 100 mg PO BID DO NOT USE Aurobin 07/08/25 08/14/25 Rx brand generic #180 tabs amlodipine 5 mg tablet 5 mg PO QDAY 08/07/25 08/14/25 His tory levothyroxine 175 mcg tablet 137 mcg PO DAILY 08/07/25 08/14/25 History rosuvastatin 5 mg tablet 20 mg PO DAILY 08/07/25 08/14/25 H istory tirzepatide 5 mg/0.5 mL mg subcut 08/07/25 08/14/25 Histor y subcutaneous pen injector (Rose) ranolazine 500 mg tablet,extended 1,000 mg (2 x 500 mg) PO .COMPLEX 08/14/25 Rx release,12 hr #360 tabs Have you fallen in the past year?: No PFSH Medical History PONV (postoperative nausea and vomiting) Unilateral vocal cord paralysis Graves disease Thyroid disease Rheumatoid arthritis High cholesterol TIA (transient ischemic attack) History of hiatal hernia Diverticulosis History of colitis Shortness of breath on exertion Chronic cough Leg cramps History of edema Hypertension Epigastric pain Rectal bleeding Dysphagia Abnormal stress test Carotid stenosis Wears glasses Anxiety Cancer Hyperthyroidism Diabetes Bladder leak Hemochromatosis Fatty liver Restless leg Back pain Concussion Mini stroke Light-headedness Dietary restriction Hernia, hiatal Hx of duodenal ulcer Diverticulitis GERD (gastroesophageal reflux disease) Non-smoker History of pain when walking Edema Rheumatic fever Cardiology follow-up encounter H/O echocardiogram History of stress test Obesity Thyroid cancer Asthma Knee pain Cancer Arthritis Postprocedural hypothyroidism Paroxysmal atrial fibrillation Atrial fibrillation Hypothyroidism stem (more content not included)... Normal [facility] Mean corpuscular hemoglobin (MCH) determinationOrdered By: Ora Nam on 08-14-2025 MCH (RBC) [Entitic mass] 32.6 pg High 27.0-32.0 [facility] Mean corpuscular hemoglobin concentration (MCHC) determinationOrdered By: Ora Nam on 08-14-2025 MCHC (RBC) [Mass/Vol] 34.5 g/dL 32-36 [facility] Mean platelet volume determi nationOrdered By: Ora Nam on 08-14-2025 Platelet mean volume (Bld) [Entitic vol] 8.8 fL 6.2-12.0 [facility] Monocyte percentageOrdered B y: Ora Nam on 08-14-2025 Monocytes/100 WBC (Bld) 10.6 % High 0-10 [facility] Neutrophil percentageOrdered By: Ora Nam on 08-14-2025 Neutrophils/100 WBC (Bld) 61.7 % 47-70 [facility] Nucleated red blood cell per centageOrdered By: Ora Nam on 08-14-2025 Nucleated RBC/100 WBC (Bld) [Ratio] 0 % 0-5 [facility] Platelet countOrdered By: Gisel Nam on 08-14-2025 Platelets (Bld) [#/Vol] 215 10*3/uL 150-450 [facility] Potassium measurement (mass/ volume)Ordered By: Ora Nam on 08-14-2025 Potassium (Unsp spec) [Mass/Vol] 4.5 mmol/L 3.3-5.1 [facility] RBC Auto (Bld) [#/Vol]Ordere d By: Ora Nam on 08-14-2025 RBC (Bld) [#/Vol] 3.84 10*6/uL Low 4.2-5.4 [facility] Serum creatinine measurement (mass/volume)Ordered By: Ora Nam on 08-14-2025 Creatinine [Mass/Vol] 0.88 mg/dL 0.70-1.20 [facility] Serum globulin measurementOr dered By: Ora Nam on 08-14-2025 Globulin (S) [Mass/Vol] 3.2 g/dL 2.2-4.2 [facility] Serum glucose measurement (m ass/volume)Ordered By: Ora Nam on 08-14-2025 Glucose [Mass/Vol] 91 mg/dL 70-99 [facility] Serum or plasma alanine morgan otransferase (ALT) measurementOrdered By: Ora Nam on 08-14-2025 ALT [Catalytic activity/Vol] 8 U/L <35 [facility] Serum or plasma albumin irina urement (mass/volume)Ordered By: Ora Nam on 08-14-2025 Albumin [Mass/Vol] 4.2 g/dL 3.4-4.8 [facility] Serum or plasma albumin/glob ulin mass ratioOrdered By: Ora Nam on 08-14-2025 Albumin/Globulin [Mass ratio] 1.3 {ratio} 0.9-2.4 [facility] Serum or plasma alkaline jaun sphatase measurementOrdered By: Ora Nam on 08-14-2025 ALP [Catalytic activity/Vol] 60 U/L 35-104 [facility] Serum or plasma calcium irina urement (mass/volume)Ordered By: Ora Nam on 08-14-2025 Calcium [Mass/Vol] 9.5 mg/dL 7.6-11.0 [facility] Serum or plasma urea nitroge n measurement (mass/volume)Ordered By: Ora Nam on 08-14-2025 Urea nitrogen [Mass/Vol] 19 mg/dL 4-19 [facility] Sodium levelOrdered By: Clare Nam on 08-14-2025 Sodium [Moles/Vol] 138 mmol/L 133-145 [facility] Total proteinOrdered By: Rosario Nam on 08-14-2025 Protein [Mass/Vol] 7.4 g/dL 5.9-8.4 [facility] White blood cell (WBC) count Ordered By: Ora Nam on 08-14-2025 WBC (Bld) [#/Vol] 7.4 10*3/uL 4.4-11.0 [facility] CNPNon 08-08-2025 CNPN Telephone (OBGYWM) MACY DOWNEY ([id number]) 1950 F Date Time Provider Department 08/08/25 REE FLETCHER OBGYWM During your visit today, we recorded the following information about you: Ree Fletcher MD 08/08/2025 8:30 AM Signed See result note Repeat breast US ordered 6 months Yearly mammogram ordered Allergies As of Date: 08/08/2025 Noted Allergy Reaction AMOXICILLIN 02/21/2009 6 - Diarrhea GLUCOPHAGE XR (METFORMIN HCL) 03/29/2007 6 - Diarrhea 8 - GI Upset Comments: Bloating CYMBALTA (DULOXETINE) 06/28/2017 14 - Other: See Comments Comments: Neuropathy , electrical shocks GLIPIZIDE 06/28/2017 16 - Unknown NEXIUM (ESOMEPRAZOLE MAGNESIUM) 08/04/2016 14 - Other: See Comments Comments: Ineffective OMEPRAZOLE 08/04/2016 14 - Other: See Comments Comments: Ineffective PENICILLINS 05/02/2023 8 - GI Upset PROTONIX (PANTOPRAZOLE SODIUM) 08/04/2016 14 - Other: See Comments Comments: Ineffective ALTACE (RAMIPRIL) 08/04/2005 14 - Other: See Comments Comments: Blurred vision ZANTAC (RANITIDINE HCL) 08/04/2005 2 - Rash 9 - Itching Date Reviewed: 10/10/2024 Reviewed by: Seb Amezcua, RT(R) - Fully Assessed Reason for Visit: Orders [681] Primary Visit Diagnosis:Lipoma of breast [D17.1] Other Visit Diagnoses:Abnormal ultrasound of breast [R92.8] Mass of left breast, unspecified quadrant [N63.20] Encounter for screening mammogram for malignant neoplasm of breast [Z12.31] Order(s):US BREAST LTD LEFT [[id number]] Order #: [id number] FUTURE GINA SCREENING W CHARLY [[id number]] Order #: [id number] FUTURE Prescriptions as of 08/08/2025 - metoprolol tartrate, short acting, (LOPRESSOR) 100 mg tablet Take 100 mg by mouth two times a day. - spironolactone (ALDACTONE) 25 mg tablet Take 1 tablet by mouth every morning. - ranolazine ER (RANEXA) 500 mg 12 hr tablet Take 1 tablet by mouth two times a day. - estradiol (VIVELLE-DOT) 0.075 mg/24 hr patch Apply 1 Patch as directed two times a week. - BROMSITE 0.075 % drop 1 Drop. - fluorometholone (FML LIQUID FILM) 0.1 % ophthalmic suspension 1 Drop twice daily. - ofloxacin (OCUFLOX) 0.3 % ophthalmic solution - levothyroxine 175 mcg cap Take 175 mcg by mouth daily before breakfast. - ascorbic acid (VITAMIN C ORAL) Take by mouth. - aspirin 81 mg cap Take by mouth. - d-mannose (AZO D-MANNOSE) 500 mg cap Take by mouth. - metoprolol succinate ER (TOPROL XL) 50 mg 24 hr tablet Take 100 mg by mouth twice daily. - Red Yeast Rice Extract 600 mg cap Take by mouth. - IBUPROFEN ORAL Take 200 mg by mouth twice daily as needed. - levothyroxine (SYNTHROID) 25 mcg tablet Take 1 tablet by mouth once daily. Take on empty stomach. For thyroid. - liraglutide (VICTOZA) 0.6 mg/ 0.1 ml subcutaneous pen injector INJECT 1.2 MILLIGRAM(S) BY SUBCUTANEOUS ROUTE , 1 TIME PER DAY , FOR 30 DAYS - lansoprazole (PREVACID) 30 mg capsule Take 1 capsule by mouth once daily. - potassium chloride (KLOR-CON 10) 10 mEq tablet Take 2 tablets by mouth twice daily. - triamterene-hydrochlorothia zide (MAXZIDE-25) 37.5-25 mg per tablet Take 0.5 tablets by mouth once daily. - fluticasone (FLONASE) 50 mcg/actuation nasal spray Use 2 Sprays in each nostril once daily. - losartan (COZAAR) 25 mg tablet Take 0.5 tablets by mouth once daily. - famotidine (PEPCID) 20 mg tablet Take 1 tablet by mouth twice daily. - cholecalciferol (VITAMIN D3) 5,000 unit tab Take 5,000 Units by mouth once daily. - Insulin Wayan, Disposable, (NOVOFINE 30) 30 gauge x 1/3 ndle 1 Device once daily. - rosuvastatin (CRESTOR) 20 mg tablet Take 20 mg by mouth once daily. - amLODIPine (NORVASC) 10 mg tablet Take 1 tablet by mouth once daily. - Psyllium powd Take by mouth. - MULTIVITAMIN TAB Take one(1) tablet daily. Problem List As Of Date 08/08/2025 Noted Resolved Type II or unspecified type diabetes mellitus w* 07/27/2014 Rheumatoid arthritis (HCC) [M06.9] ASTHMA UNSPECIFIED [J45.909] Diffuse cystic mastopathy [N60.19] 08/04/2016 HYPERTENSION NOS [I10] 08/05/2015 ALLERGY, UNSPECIFIED [T78.40XA] Other hyperlipidemia [E78.49] 03/29/2007 Sprain and strain of unspecified site of should*09/15/2007 08/04/2016 OBESITY [E66.9] 06/20/2009 02/06/2015 Multinodular goiter (nontoxic) [E04.2] 07/22/2009 Abdominal pain [R10.9] 08/01/2009 10/19/2013 GERD (Gastroesophageal Reflux Disease) [K21.9] 08/07/2009 Abdominal pain, unspecified site [R10.9] 08/07/2009 10/17/2013 BMI 45.0-49.9, adult [Z68.42] 09/26/2013 DM w/ coma type II, uncontrolled ([facility]) [ZVR3044]04/08/2014 07/27/2014 Diabetes mellitus type 2, controlled, without c*07/27/2014 Chronic rheumatic arthritis (HCC) [M06.9] 02/06/2015 08/04/2016 Depression [F32.A] 08/04/2016 10/19/2019 Vitamin D deficiency [E55.9] 08/04/2016 Essential hypertension [I10] Hypothyroidism [E03.9] Encounter Sta (more content not included)... Normal [facility] Cardiology Visit Reporton Cardiology Visit Report [facility] [address] [place] [address] OFFICE VISIT Date of Service: 08/07/25 MR#: [id number] Acct: [id number] Name: MACY DOWNEY Rep #: [id number] : 1950 Provider: SHAHRAM Munson Age/Sex: 74/F Location: [facility] Status: Signed HPI HPI History of Present Illness Details: The patient is a 74-year-old female with CAD, HTN, pulmonary HTN, paroxysmal atrial fibrillation, HLD, DMII, and a history of thyroidectomy, presenting with recurrent chest discomfort, palpitations, and blood pressure fluctuations. She has a history of single-vessel diagonal 80% stenosis, mild disease of the LAD, circumflex, and RCA on heart catheterization in 03/2023, for which medical therapy was recommended. A stress test in 05/2024 was negative for ischemia. She also has a history of left carotid endarterectomy in 08/2022. She is currently on aspirin for anticoagulation. She describes several recent episodes of chest pain characterized as a squeezing sensation, accompanied by a sensation of forceful heartbeats. She also reports nocturnal episodes of rapid heart rate that awaken her from sleep, as well as intermittent chest pressure. She notes that these symptoms have been more frequent since March, coinciding with a period when her thyroid function was abnormal. She attributes some improvement in symptoms to recent adjustments in her thyroid medication, following a TSH <0.18, which led to a reduction in her levothyroxine dose from 175 mcg to a lower dose. She also reports significant fatigue and hair loss, which she attributes to her thyroid dysfunction. She reports difficulty managing her blood pressure, with readings fluctuating from the 80s to as high as 179/90 mmHg. She was initially taken off amlodipine due to low blood pressure, but it was restarted at 5 mg daily when her blood pressure increased. She experiences significant lightheadedness when taking amlodipine with her other morning medications, so she now takes it alone at night, which has reduced but not eliminated the lightheadedness. She is also on metoprolol, but the dose was not specified. She has a family history of atrial fibrillation in her mother, sister, and brother. She denies sleep apnea. Intake Vital Signs 10/12/24 12:56 08/07/25 08:01 08/07/25 09:37 Height 5 ft 2 in 5 ft 2 in Weight: 234 lb BMI 42.7 BP 152/74 H 109/66 Blood Pressure Location Lt radial Lt radial Position Sitting Sitting Respiration 18 Pulse 71 Pulse Source Monitor Pulse Oximetry (%) 98 Oxygen Delivery Method room air Intake Visit Reasons: 6 M Pharmacy Associate Required: No Accompanied by: Self Is patient in pain?: No Allergies amoxicillin Allergy (Verified 08/07/25 09:15) Unknown duloxetine (From Cymbalta) Allergy (Verified 08/07/25 09:15) neuropathy losartan (Losartan) Allergy (Verified 08/07/25 09:15) Unknown ramipril Allergy (Verified 08/07/25 09:15) Unknown ranitidine HCl (From Zantac) Allergy (Verified 08/07/25 09:15) Unknown meloxicam (From Mobic) Adverse Reaction (Severe, Verified 08/07/25 09:15) Heartburn celecoxib (From Celebrex) Adverse Reaction (Verified 08/07/25 09:15) Upset Stomach cortisone Adverse Reaction (Verified 08/07/25 09:15) emotional issues glimepiride Adverse Reaction (Verified 08/07/25 09:15) Nausea/Vom/Diarrhea metformin HCl (From Glucophage) Adverse Reaction (Verified 08/07/25 09:15) Nausea/Vom/Diarrhea methotrexate Adverse Reaction (Verified 08/07/25 09:15) Unknown Penicillins Adverse Reaction (Verified 08/07/25 09:15) Nausea/Vom/Diarrhea pravastatin Adverse Reaction (Verified 08/07/25 09:15) MUSCLE PAIN Medications ???Medication ???Instructions ???Recorded ???Confirmed ???Type fluticasone propionate 50 1 spray NASAL DAILY PRN Congestion 09/29/15 08/07/25 History mcg/actuation nasal spray,suspension cholecalciferol (vitamin D3) 50 5,000 unit PO DAILY SUPPLEMENT 08/07/25 History mcg (2,000 unit) capsule ascorbate calcium (vitamin C) 500 500 mg PO DAILY SUPPLEMENT 08/07/25 History mg tablet artifi.tears(hypromellose)( PF) 0.3 1 drp ophthalmic (eye) DAILY PRN 05/31/22 08/07/25 History % eye drops Dry Eye(S) aspirin 81 mg tablet,delayed 81 mg PO QDAY HEART HEALTH 2 08/07/25 History release (Adult Aspirin Regimen) estradiol 0.1 mg/24 hr semiweekly 0.1 mg topical SUWE MENOPAUSE 08/2108/07/25 History transdermal patch (Vivelle-Dot) ibuprofen 800 mg tablet 800 mg PO BID PRN PAIN 01/12/23 History omeprazole magnesium 20 mg 40 mg PO DAILY GERD 05/22/2408/07 History capsule,delayed release (Acid 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)) psyllium husk 0.4 gram capsule 0.4 g PO DAILY PRN constipation 08/07/25 History (more content not included)... Normal [facility] - Chemistry and C hemistry - challengeOrdered By: Elen Alonzo on 08-07-2025 Bilirubin Ql (U) Small (1+) [facility] Glucose Ql (U) Negative [facility] Ketones Ql (U) Negative [facility] pH (U) 5 [pH] [facility] Specific gravity (U) [Rel density] 1.030 [facility] Urobilinogen (U) [Mass/Vol] 1 mg/dL [facility] - Hematology and Cell countsOrdered By: Elen Alonzo on 08-07-2025 Hemoglobin Ql (U) Negative [facility] - UrinalysisOrder ed By: Elen Alonzo on 08-07-2025 Nitrite Ql (U) Negative [facility] Protein Ql (U) 2+ [facility] MR/Sara 08-07-2025 MR/JAXSON [facility] [address], [address] [place] [address] OFFICE VISIT Date of Service: 08/07/25 MR#: [id number] Acct: [id number] Name: MACY DOWNEY Rep #: [id number] : 1950 Provider: Dr. Elen Francis i, MD Age/Sex: 74/F Location: [facility] Status: Signed Intake Vital Signs 10/12/24 12:56 08/07/25 08:01 08/07/25 11:27 Height 5 ft 2 in 5 ft 2 in 5 ft 2 in Weight: 234 lb 234 lb BMI 42.7 42.7 BP 152/74 H 134/72 H Blood Pressure Location Lt radial Position Sitting Respiration 18 Pulse 71 69 Pulse Source Monitor Pulse Oximetry (%) 98 Oxygen Delivery Method room air Intake Visit Reasons: yearly estrogen cream Chief Complaint: yearly estrogen cream follow up Pharmacy Associate Required: No Accompanied by: self Is patient in pain?: No Allergies amoxicillin Allergy (Verified 08/07/25 11:23) Unknown duloxetine (From Cymbalta) Allergy (Verified 08/07/25 11:23) neuropathy losartan (Losartan) Allergy (Verified 08/07/25 11:23) Unknown ramipril Allergy (Verified 08/07/25 11:23) Unknown ranitidine HCl (From Zantac) Allergy (Verified 08/07/25 11:23) Unknown meloxicam (From Mobic) Adverse Reaction (Severe, Verified 08/07/25 11:23) Heartburn celecoxib (From Celebrex) Adverse Reaction (Verified 08/07/25 11:23) Upset Stomach cortisone Adverse Reaction (Verified 08/07/25 11:23) emotional issues glimepiride Adverse Reaction (Verified 08/07/25 11:23) Nausea/Vom/Diarrhea metformin HCl (From Glucophage) Adverse Reaction (Verified 08/07/25 11:23) Nausea/Vom/Diarrhea methotrexate Adverse Reaction (Verified 08/07/25 11:23) Unknown Penicillins Adverse Reaction (Verified 08/07/25 11:23) Nausea/Vom/Diarrhea pravastatin Adverse Reaction (Verified 08/07/25 11:23) MUSCLE PAIN Medications ???Medication ???Instructions ???Recorded ???Confirmed ???Type fluticasone propionate 50 1 spray NASAL DAILY PRN Congestion 09/29/15 08/07/25 History mcg/actuation nasal spray,suspension cholecalciferol (vitamin D3) 50 5,000 unit PO DAILY SUPPLEMENT 08/07/25 History mcg (2,000 unit) capsule ascorbate calcium (vitamin C) 500 500 mg PO DAILY SUPPLEMENT 08/07/25 History mg tablet artifi.tears(hypromellose)( PF) 0.3 1 drp ophthalmic (eye) DAILY PRN 05/31/22 08/07/25 History % eye drops Dry Eye(S) aspirin 81 mg tablet,delayed 81 mg PO QDAY [facility] HEALTH 2 08/07/25 History release (Adult Aspirin Regimen) estradiol 0.1 mg/24 hr semiweekly 0.1 mg topical SUWE MENOPAUSE 08/2108/07/25 History transdermal patch (Vivelle-Dot) ibuprofen 800 mg tablet 800 mg PO BID PRN PAIN 01/12/23 History omeprazole magnesium 20 mg 40 mg PO DAILY GERD 05/22/2408/07 History capsule,delayed release (Acid 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)) psyllium husk 0.4 gram capsule 0.4 g PO DAILY PRN constipation 08/07/25 History (Metamucil) ranolazine 500 mg tablet,extended 1,000 mg (2 x 500 mg) PO .COMPLEX 02/05/25 08/07/25 Rx release,12 hr #360 tabs estradiol 0.01% (0.1 mg/gram) 1 g vaginal 2XW #42.5 grams 08/07/25 Rx vaginal cream metoprolol tartrate 100 mg tablet 100 mg PO BID DO NOT USE Aurobin 07/08/25 08/07/25 Rx brand generic #180 tabs amlodipine 5 mg tablet 5 mg PO QDAY 08/07/25 08/07/25 His tory azithromycin 250 mg tablet See Rx Instructions PO .COMPLEX History levothyroxine 175 mcg tablet 137 mcg PO DAILY 08/07/25 08/07/25 History rosuvastatin 5 mg tablet 20 mg PO DAILY 08/07/25 08/07/25 H istory tirzepatide 5 mg/0.5 mL mg subcut 08/07/25 08/07/25 Histor y subcutaneous pen injector (Rose) Have you fallen in the past year?: No [facility] Medical History PONV (postoperative nausea and vomiting) Unilateral vocal cord paralysis Graves disease Thyroid disease Rheumatoid arthritis High cholesterol TIA (transient ischemic attack) History of hiatal hernia Diverticulosis History of colitis Shortness of breath on exertion Chronic cough Leg cramps History of edema Hypertension Epigastric pain Rectal bleeding Dysphagia Abnormal stress test Carotid stenosis Wears glasses Anxiety Cancer Hyperthyroidism Diabetes Bladder leak Hemochromatosis Fatty liver Restless leg Back pain Concussion Mini stroke Light-headedness Dietary restriction Hernia, hiatal Hx of duodenal ulcer Diverticulitis GERD (gastroesophageal reflux disease) Non-smoker History of pain when walking Edema Rheumatic fever Cardiology follow-up encounter H/O echocardiogram History of stress test Obesity Thyroid cancer Asthma Knee pain Cancer Arthritis Postprocedural hypothyroidism Paroxysmal atrial fibrillation Atrial fibrillation H (more content not included)... Normal [facility] No Panel InformationOrdered By: Elen Alonzo on 08-07-2025 Urine Leukocytes Positive [facility] Urine Non-Hemolyzed Blood Negative [facility] GINA DIAG W CHARLY BILon 2024 GINA DIAG W CHARLY WALTER * * *Final Report* * * DATE OF EXAM: Aug 06 2025 9:31AM W 0627 - GINA DIAG W CHARLY WALTER / PROCEDURE REASON: Category 3 mammography result with short follow-up interval suggested for probab * * * * Physician Interpretation * * * * RESULT: [place] [address] #[id number] - GINA DIAG W CHARLY WALTER #[id number] - [facility] [employer] LT HISTORY: 74 year-old patient presents for diagnostic evaluation of a palpable abnormality in the left breast, focal pain in the left breast, short term follow-up from a previous mammogram of the right breast and post mammogram guided clip placement in the right breast. Patient states no personal history of breast cancer. COMPARISON STUDIES: The present examination has been compared to prior imaging studies dated 08/15/2019 (mammogram), 07/20/2021 (mammogram), 03/10/2023 (mammogram), 08/27/2024 (mammogram) and 09/19/2024 (mammogram). MAMMOGRAM TECHNIQUE: The study was acquired using full field digital technology and interpreted from soft copy. Digital Breast Tomosynthesis (DBT) images were obtained and used to assist in the interpretation of this examination. MAMMOGRAM FINDINGS: The breasts are heterogeneously dense, which may obscure small masses. There is a biopsy marker in the right breast. No suspicious masses or microcalcifications in either breast. ULTRASOUND TECHNIQUE: Targeted ultrasound of the indicated area was performed. Contreras scale images were saved. ULTRASOUND FINDINGS: There is an oval parallel mass with circumscribed margins measuring 2 cm at 3 o'clock, 21 cm from the nipple in the left breast. Internal echotexture is isoechoic. Color flow imaging demonstrates vascularity is not present. This likely represents a lipoma. This correlates as palpated. IMPRESSION: The 2 cm oval parallel mass in the left breast at 3 o'clock, 21 cm from the nipple is probably benign. This likely represents a lipoma. Follow-up with diagnostic ultrasound is recommended in 6 months. BI-RADS Category 3: Probably Benign RISK: Based on the Tyrer-Cuzick (TC) risk assessment model, this patient has a 6.7% lifetime risk of developing breast cancer, meaning they are at average risk for developing breast cancer. However, this is only an estimate based on available history provided on the patient's questionnaire. We encourage all patients to talk with their providers about these results, further recommendations for managing breast health, and appropriate supplemental screening options if the patient has dense breast tissue. Interpreting Radiologist: Riki Spivey M.D. Electronically signed on: 08/06/2025 Digital Marketing Consultant: ROSCOE Transcribe Date/Time: Aug 06 2025 9:19A Dictated by: RIKI SPIVEY MD This examination was interpreted and the report reviewed and electronically signed by: RIKI SPIVEY MD on Aug 06 2025 10:23AM EST [id number] Normal [facility] US BREAST LTD LTon 08-06 [facility] US BREAST LTD LT * * *Final Report* * * DATE OF EXAM: Aug 06 2025 10:06AM [facility] 0593 - [facility] US BREAST LTD LT / PROCEDURE REASON: Lump in lower outer quadrant of left breast * * * * Physician Interpretation * * * * [place] [id number] #[id number] - [facility] ASHLEY JOHNS #[id number] - [facility] US BREAST LTD HISTORY: 74 year-old patient presents for diagnostic evaluation of a palpable abnormality in the left breast, focal pain in the left breast, short term follow-up from a previous mammogram of the right breast and post mammogram guided clip placement in the right breast. Patient states no personal history of breast cancer. COMPARISON STUDIES: The present examination has been compared to prior imaging studies dated 08/15/2019 (mammogram), 07/20/2021 (mammogram), 03/10/2023 (mammogram), 08/27/2024 (mammogram) and 09/19/2024 (mammogram). MAMMOGRAM TECHNIQUE: The study was acquired using full field digital technology and interpreted from soft copy. Digital Breast Tomosynthesis (DBT) images were obtained and used to assist in the interpretation of this examination. MAMMOGRAM FINDINGS: The breasts are heterogeneously dense, which may obscure small masses. There is a biopsy marker in the right breast. No suspicious masses or microcalcifications in either breast. ULTRASOUND TECHNIQUE: Targeted ultrasound of the indicated area was performed. Contreras scale images were saved. ULTRASOUND FINDINGS: There is an oval parallel mass with circumscribed margins measuring 2 cm at 3 o'clock, 21 cm from the nipple in the left breast. Internal echotexture is isoechoic. Color flow imaging demonstrates vascularity is not present. This likely represents a lipoma. This correlates as palpated. IMPRESSION: The 2 cm oval parallel mass in the left breast at 3 o'clock, 21 cm from the nipple is probably benign. This likely represents a lipoma. Follow-up with diagnostic ultrasound is recommended in 6 months. BI-RADS Category 3: Probably Benign RISK: Based on the Tyrer-Cuzick (TC) risk assessment model, this patient has a 6.7% lifetime risk of developing breast cancer, meaning they are at average risk for developing breast cancer. However, this is only an estimate based on available history provided on the patient's questionnaire. We encourage all patients to talk with their providers about these results, further recommendations for managing breast health, and appropriate supplemental screening options if the patient has dense breast tissue. Interpreting Radiologist: Riki Spivey M.D. Electronically signed on: 08/06/2025 Digital Marketing Consultant: ROSCOE Transcribe Date/Time: Aug 06 2025 9:56A Dictated by : RIKI SPIVEY MD This examination was interpreted and the report reviewed and electronically signed by: RIKI SPIVEY MD on Aug 06 2025 10:23AM EST [id number] Normal [facility] Absolute lymphocyte countOrd ered By: Ora Nam on 08-05-2025 Lymphocytes Auto (Unsp spec) [#/Vol] 1.37 10*3/uL 0.83-4.51 [facility] Absolute neutrophil countOrd ered By: Ora Nam on 08-05-2025 Neutrophils (Bld) [#/Vol] 4.2 10*3/uL 2.0-7.7 [facility] Anion gap in Serum or Plasma Ordered By: Ora Nam on 08-05-2025 Anion gap [Moles/Vol] 12 mmol/L 5- [facility] Automated lymphocyte count a s percentage of total leukocytesOrdered By: Ora Nam on 08-05-2025 Lymphocytes/100 WBC Auto (Unsp spec) 21.4 % -41 [facility] BUN/creatinine ratioOrdered By: Ora Nam on 08-05-2025 Urea nitrogen/Creatinine [Mass ratio] 21.4 mg/mg High 10- [facility] Basophil percentageOrdered B y: Ora Nam on 08-05-2025 Basophils/100 WBC (Bld) 0.5 % 0-1 [facility] Bilirubin, totalOrdered By: Ora Nam on 08-05-2025 Bilirubin [Mass/Vol] 0.42 mg/dL 0.00-1.30 [facility] CBC W/Diff, Automatedon Absolute Lymph 1.37 X10 3/uL Normal 0.83-4.51 [facility] Comment on above: Performed By: #### L 100.0100, L500.4050, L501.9520, L501.5200, L501.01449, L501.9985, L506.1001, L500.4100, L506.0400 ####[facility] [address] [place], [address] Absolute Neut 4.2 X10 3/uL Normal 2.0-7.7 [facility] Comment on above: Performed By: #### L 100.0100, L500.4050, L501.9520, L501.5200, L501.56846, L501.9985, L506.1001, L500.4100, L506.0400 ####[facility] [address] [place], [address] Basophils/100 WBC (Bld) 0.5 % Normal 0-1 [facility] Comment on above: Performed By: #### L 100.0100, L500.4050, L501.9520, L501.5200, L501.55425, L501.9985, L506.1001, L500.4100, L506.0400 ####[facility] [address] [place], [address] Eosinophils/100 WBC (Bld) 2.7 % Normal 0-5 [facility] Comment on above: Performed By: #### L 100.0100, L500.4050, L501.9520, L501.5200, L501.56590, L501.9985, L506.1001, L500.4100, L506.0400 ####[facility] [address] [place], [address] Erythrocyte distribution width (RBC) [Ratio] 13.7 % Normal 11.6-14.6 [facility] Comment on above: Performed By: #### L 100.0100, L500.4050, L501.9520, L501.5200, L501.61817, L501.9985, L506.1001, L500.4100, L506.0400 ####[facility] [address] [place], [address] Hematocrit (Bld) [Volume fraction] 35.6 % Low 37-47 [facility] Comment on above: Performed By: #### L 100.0100, L500.4050, L501.9520, L501.5200, L501.88338, L501.9985, L506.1001, L500.4100, L506.0400 ####[facility] [address] [place], [place], [phone]([phone]) Hemoglobin (Bld) [Mass/Vol] 12.4 g/dL Normal 12.0-15.0 [facility] Comment on above: Performed By: #### L 100.0100, L500.4050, L501.9520, L501.5200, L501.63343, L501.9985, L506.1001, L500.4100, L506.0400 ####[facility] [address] [place], [address] IG% 0.300 Normal 0.0-0.9 [facility] Comment on above: Result Comment: IG% - Immature Granulocytes (promyelocytes, myelocytes and metamyelocytes) > 1% indicates that a LEFT SHIFT is Present. Performed By: #### L 100.0100, L500.4050, L501.9520, L501.5200, L501.57833, L501.9985, L506.1001, L500.4100, L506.0400 ####[facility] [address] [place], [place], [phone](116) Lymphocytes/100 WBC (Bld) 21.4 % Normal 19-41 [facility] Comment on above: Performed By: #### L 100.0100, L500.4050, L501.9520, L501.5200, L501.46564, L501.9985, L506.1001, L500.4100, L506.0400 ####[facility] [address] [place], [address] MCH (RBC) [Entitic mass] 32.3 pg High 27.0-32.0 [facility] Comment on above: Performed By: #### L 100.0100, L500.4050, L501.9520, L501.5200, L501.02687, L501.9985, L506.1001, L500.4100, L506.0400 ####[facility] [address] [place], [address] MCHC (RBC) [Mass/Vol] 34.8 g/dL Normal 32-36 [facility] Comment on above: Performed By: #### L 100.0100, L500.4050, L501.9520, L501.5200, L501.89667, L501.9985, L506.1001, L500.4100, L506.0400 ####[facility] [address] [place], [address] MCV (RBC) [Entitic vol] 92.7 fL Normal 81-99 [facility] Comment on above: Performed By: #### L 100.0100, L500.4050, L501.9520, L501.5200, L501.38643, L501.9985, L506.1001, L500.4100, L506.0400 ####[facility] [address] [place], [address] Monocytes/100 WBC (Bld) 8.9 % Normal 0-10 [facility] Comment on above: Performed By: #### L 100.0100, L500.4050, L501.9520, L501.5200, L501.24500, L501.9985, L506.1001, L500.4100, L506.0400 ####[facility] [address] [place], [address] Neutrophils/100 WBC (Bld) 66.2 % Normal 47-70 [facility] Comment on above: Performed By: #### L 100.0100, L500.4050, L501.9520, L501.5200, L501.84489, L501.9985, L506.1001, L500.4100, L506.0400 ####[facility] [address] [place], [address] Nucleated RBC (Bld) [#/Vol] 0 10*3/uL Normal 0-5 [facility] Comment on above: Performed By: #### L 100.0100, L500.4050, L501.9520, L501.5200, L501.40388, L501.9985, L506.1001, L500.4100, L506.0400 ####[facility] [address] [place], [address] Platelet mean volume (Bld) [Entitic vol] 9.6 fL Normal 6.2-12.0 [facility] Comment on above: Performed By: #### L 100.0100, L500.4050, L501.9520, L501.5200, L501.19288, L501.9985, L506.1001, L500.4100, L506.0400 ####[facility] [address] [place], [address] Platelets (Bld) [#/Vol] 215 10*3/uL Normal 150-450 [facility] Comment on above: Performed By: #### L 100.0100, L500.4050, L501.9520, L501.5200, L501.90303, L501.9985, L506.1001, L500.4100, L506.0400 ####[facility] [address] [place], [address] RBC (Bld) [#/Vol] 3.84 10*6/uL Low 4.2-5.4 [facility] Comment on above: Performed By: #### L 100.0100, L500.4050, L501.9520, L501.5200, L501.67560, L501.9985, L506.1001, L500.4100, L506.0400 ####[facility] [address] [place], [address] RDW SD 46.2 fl High 35.1-43.9 [facility] Comment on above: Performed By: #### L 100.0100, L500.4050, L501.9520, L501.5200, L501.80887, L501.9985, L506.1001, L500.4100, L506.0400 ####[facility] [address] [place], [address] WBC (Bld) [#/Vol] 6.4 10*3/uL Normal 4.4-11.0 [facility] Comment on above: Performed By: #### L 100.0100, L500.4050, L501.9520, L501.5200, L501.20024, L501.9985, L506.1001, L500.4100, L506.0400 ####[facility] [address] [facility] [place], [address] CBC-Complete Blood Cnt No Di ffon 08-05-2025 HCT Normal 37-47 [facility] Comment on above: Result Comment: DUPL ICATE Performed By: #### L 100.0500 #### [facility] [address] [place], [address] HGB Normal 12.0-15.0 [facility] Comment on above: Result Comment: DUPL ICATE Performed By: #### L 100.0500 #### [facility] [address] [place], [address] MCH Normal 27.0-32.0 [facility] Comment on above: Result Comment: DUPL ICATE Performed By: #### L 100.0500 #### [facility] [address] [place], [address] MCHC Normal 32-36 [facility] Comment on above: Result Comment: DUPL ICATE Performed By: #### L 100.0500 #### [facility] [address] [place], [address] MCV Normal 81-99 [facility] Comment on above: Result Comment: DUPL ICATE Performed By: #### L 100.0500 #### [facility] [address] [place], [address] PLT Normal 150-450 [facility] Comment on above: Result Comment: DUPL ICATE Performed By: #### L 100.0500 #### [facility] [address] [place], [address] RBC Normal 4.2-5.4 [facility] Comment on above: Result Comment: DUPL ICATE Performed By: #### L 100.0500 #### [facility] [address] [place], [address] RDW CV Normal 11.6-14.6 [facility] Comment on above: Result Comment: DUPL ICATE Performed By: #### L 100.0500 #### [facility] [address] [place], [address] RDW SD Normal 35.1-43.9 [facility] Comment on above: Result Comment: DUPL ICATE Performed By: #### L 100.0500 #### [facility] [address] [place], [address] WBC Normal 4.4-11.0 [facility] Comment on above: Result Comment: DUPL ICATE Performed By: #### L 100.0500 #### [facility] [address] [place], [address] [facility] DOWNEYMACY REA ([id number]) 1950 F Date Time Provider Department 08/05/25 [facility] OBGYWM During your visit today, we recorded the following information about you: Stefanie Burgos RN 08/05/2025 11:39 AM Signed Pt called to get clarification on what kind of mammogram will be completed tomorrow as well as ultrasound. Only has US of Right breast scheduled. However, Pt mentioned within the past few weeks, she's been dealing with chest pain/heart problems and has been seeing her heart Dr. Had echo completed at end of the month AND has appt on Tuesday to f/u with heart Reviewed with Pt that if she has any worsening sx to go to ER. But Pt did state that she noticed a pea sized lump on left breast lower than her armpit-oblong in shape and has noted that it is getting bigger. Do you want US ordered as well as the diagnostic mammogram? Informed Pt that if US was going to be ordered, we would call and let her know-pended if appropriate. If not, then it is very important that she mention this to the technical sme, so that this lump can be marked prior to diagnostic mammogram. Pt voiced understanding. Please advise. DIXON Rose Sara, MD 08/05/2025 4:52 PM Signed filed Kerry Loera RN 08/05/2025 5:02 PM Signed Linked to visit. Kerry Loera RN Allergies As of Date: 08/05/2025 Noted Allergy Reaction AMOXICILLIN 02/21/2009 6 - Diarrhea GLUCOPHAGE XR (METFORMIN HCL) 03/29/2007 6 - Diarrhea 8 - GI Upset Comments: Bloating CYMBALTA (DULOXETINE) 06/28/2017 14 - Other: See Comments Comments: Neuropathy , electrical shocks GLIPIZIDE 06/28/2017 16 - Unknown NEXIUM (ESOMEPRAZOLE MAGNESIUM) 08/04/2016 14 - Other: See Comments Comments: Ineffective OMEPRAZOLE 08/04/2016 14 - Other: See Comments Comments: Ineffective PENICILLINS 05/02/2023 8 - GI Upset PROTONIX (PANTOPRAZOLE SODIUM) 08/04/2016 14 - Other: See Comments Comments: Ineffective ALTACE (RAMIPRIL) 08/04/2005 14 - Other: See Comments Comments: Blurred vision ZANTAC (RANITIDINE HCL) 08/04/2005 2 - Rash 9 - Itching Date Reviewed: 10/10/2024 Reviewed by: Seb Amezcua, RT(R) - Fully Assessed Reason for Visit: Breast Problem [16] Primary Visit Diagnosis:Lump in lower outer quadrant of left breast [N63.23] Order(s):HomeCon LEFT [1152199] Order #: [id number] FUTURE Prescriptions as of 08/05/2025 - metoprolol tartrate, short acting, (LOPRESSOR) 100 mg tablet Take 100 mg by mouth two times a day. - spironolactone (ALDACTONE) 25 mg tablet Take 1 tablet by mouth every morning. - ranolazine ER (RANEXA) 500 mg 12 hr tablet Take 1 tablet by mouth two times a day. - estradiol (VIVELLE-DOT) 0.075 mg/24 hr patch Apply 1 Patch as directed two times a week. - BROMSITE 0.075 % drop 1 Drop. - fluorometholone (FML LIQUID FILM) 0.1 % ophthalmic suspension 1 Drop twice daily. - ofloxacin (OCUFLOX) 0.3 % ophthalmic solution - levothyroxine 175 mcg cap Take 175 mcg by mouth daily before breakfast. - ascorbic acid (VITAMIN C ORAL) Take by mouth. - aspirin 81 mg cap Take by mouth. - d-mannose (AZO D-MANNOSE) 500 mg cap Take by mouth. - metoprolol succinate ER (TOPROL XL) 50 mg 24 hr tablet Take 100 mg by mouth twice daily. - Red Yeast Rice Extract 600 mg cap Take by mouth. - IBUPROFEN ORAL Take 200 mg by mouth twice daily as needed. - levothyroxine (SYNTHROID) 25 mcg tablet Take 1 tablet by mouth once daily. Take on empty stomach. For thyroid. - liraglutide (VICTOZA) 0.6 mg/ 0.1 ml subcutaneous pen injector INJECT 1.2 MILLIGRAM(S) BY SUBCUTANEOUS ROUTE , 1 TIME PER DAY , FOR 30 DAYS - lansoprazole (PREVACID) 30 mg capsule Take 1 capsule by mouth once daily. - potassium chloride (KLOR-CON 10) 10 mEq tablet Take 2 tablets by mouth twice daily. - triamterene-hydrochlorothia zide (MAXZIDE-25) 37.5-25 mg per tablet Take 0.5 tablets by mouth once daily. - fluticasone (FLONASE) 50 mcg/actuation nasal spray Use 2 Sprays in each nostril once daily. - losartan (COZAAR) 25 mg tablet Take 0.5 tablets by mouth once daily. - famotidine (PEPCID) 20 mg tablet Take 1 tablet by mouth twice daily. - cholecalciferol (VITAMIN D3) 5,000 unit tab Take 5,000 Units by mouth once daily. - Insulin Wayan, Disposable, (NOVOFINE 30) 30 gauge x 1/3 ndle 1 Device once daily. - rosuvastatin (CRESTOR) 20 mg tablet Take 20 mg by mouth once daily. - amLODIPine (NORVASC) 10 mg tablet Take 1 tablet by mouth once daily. - Psyllium powd Take by mouth. - MULTIVITAMIN TAB Take one(1) tablet daily. 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 Normal [facility] Calculated very low density lipoprotein (VLDL) cholesterol measurementOrdered By: Ora Nam on 08-05-2025 Calculated very low density lipoprotein (VLDL) cholesterol measurement 19 mg/dL 5-40 [facility] Carbon dioxide, total [Moles /volume] in Central venous bloodOrdered By: Ora Nam on 08-05-2025 CO2 [Moles/Vol] 25.3 mmol/L 21.0-32.0 [facility] Chloride assayOrdered By: Gisel Nam on 08-05-2025 Chloride [Moles/Vol] 102 mmol/L 98-108 [facility] Comprehensive Metabolic Prof ilon 08-05-2025 Albumin [Mass/Vol] 4.1 g/dL Normal 3.4-4.8 [facility] Comment on above: Performed By: #### L 100.0100, L500.4050, L501.9520, L501.5200, L501.99185, L501.9985, L506.1001, L500.4100, L506.0400 ####[facility] [address] [place], [address] Albumin/Globulin [Mass ratio] 1.2 {ratio} Normal 0.9-2.4 [facility] Comment on above: Performed By: #### L 100.0100, L500.4050, L501.9520, L501.5200, L501.58901, L501.9985, L506.1001, L500.4100, L506.0400 ####[facility] [address] [place], [address] ALK PHOS 58 U/L Normal 35-104 [facility] Comment on above: Performed By: #### L 100.0100, L500.4050, L501.9520, L501.5200, L501.42461, L501.9985, L506.1001, L500.4100, L506.0400 ####[facility] [address] [place], [address] ALT [Catalytic activity/Vol] 10 U/L Normal <=34 [facility] Comment on above: Performed By: #### L 100.0100, L500.4050, L501.9520, L501.5200, L501.71097, L501.9985, L506.1001, L500.4100, L506.0400 ####[facility] [address] [place], [address] AST [Catalytic activity/Vol] 16 U/L Normal <=31 [facility] Comment on above: Performed By: #### L 100.0100, L500.4050, L501.9520, L501.5200, L501.16721, L501.9985, L506.1001, L500.4100, L506.0400 ####[facility] [address] [place], [address] Bilirubin [Mass/Vol] 0.42 mg/dL Normal 0.00-1.30 [facility] Comment on above: Performed By: #### L 100.0100, L500.4050, L501.9520, L501.5200, L501.14881, L501.9985, L506.1001, L500.4100, L506.0400 ####[facility] [address] [place], [address] BUN/CRE 21.4 RATIO High 10-20 [facility] Comment on above: Performed By: #### L 100.0100, L500.4050, L501.9520, L501.5200, L501.02275, L501.9985, L506.1001, L500.4100, L506.0400 ####[facility] [address] [place], [address] Calcium [Mass/Vol] 9.6 mg/dL Normal 7.6-11.0 [facility] Comment on above: Performed By: #### L 100.0100, L500.4050, L501.9520, L501.5200, L501.51319, L501.9985, L506.1001, L500.4100, L506.0400 ####[facility] [address] [place], [address] Chloride [Moles/Vol] 102 mmol/L Normal 98-108 [facility] Comment on above: Performed By: #### L 100.0100, L500.4050, L501.9520, L501.5200, L501.08983, L501.9985, L506.1001, L500.4100, L506.0400 ####[facility] [address] [place], [place], [phone](259) CO2 [Moles/Vol] 25.3 mmol/L Normal 21.0-32.0 [facility] Comment on above: Performed By: #### L 100.0100, L500.4050, L501.9520, L501.5200, L501.73472, L501.9985, L506.1001, L500.4100, L506.0400 ####[facility] [address] [place], [place], [phone](709) Creatinine [Mass/Vol] 0.68 mg/dL Low 0.70-1.20 [facility] Comment on above: Performed By: #### L 100.0100, L500.4050, L501.9520, L501.5200, L501.31097, L501.9985, L506.1001, L500.4100, L506.0400 ####[facility] [address] [place], [place], [phone](419) GAP 12 Normal 5-15 [facility] Comment on above: Performed By: #### L 100.0100, L500.4050, L501.9520, L501.5200, L501.63417, L501.9985, L506.1001, L500.4100, L506.0400 ####[facility] [address] [place], [place], [phone](736) GFR/1.73 sq M.predicted among non-blacks MDRD (S/P/Bld) [Vol rate/Area] 92 mL/min/{1.73_m2} Normal >60 [facility] Comment on above: Result Comment: mL/m in/1.73m2 CKD-EPI Creatinine Equation (2020) Performed By: #### L 100.0100, L500.4050, L501.9520, L501.5200, L501.60126, L501.9985, L506.1001, L500.4100, L506.0400 ####[facility] [address] [place], [address] Globulin (S) [Mass/Vol] 3.4 g/dL Normal 2.2-4.2 [facility] Comment on above: Performed By: #### L 100.0100, L500.4050, L501.9520, L501.5200, L501.24801, L501.9985, L506.1001, L500.4100, L506.0400 ####[facility] [address] [place], [address] Glucose [Mass/Vol] 98 mg/dL Normal 70-99 [facility] Comment on above: Performed By: #### L 100.0100, L500.4050, L501.9520, L501.5200, L501.73367, L501.9985, L506.1001, L500.4100, L506.0400 ####[facility] [address] [place], [address] Potassium [Moles/Vol] 4.5 mmol/L Normal 3.3-5.1 [facility] Comment on above: Performed By: #### L 100.0100, L500.4050, L501.9520, L501.5200, L501.16775, L501.9985, L506.1001, L500.4100, L506.0400 ####[facility] [address] [place], [address] Sodium [Moles/Vol] 139 mmol/L Normal 133-145 [facility] Comment on above: Performed By: #### L 100.0100, L500.4050, L501.9520, L501.5200, L501.91640, L501.9985, L506.1001, L500.4100, L506.0400 ####[facility] [address] [place], [place], [phone] T PROT 7.4 g/dL Normal 5.9-8.4 [facility] Comment on above: Performed By: #### L 100.0100, L500.4050, L501.9520, L501.5200, L501.52741, L501.9985, L506.1001, L500.4100, L506.0400 ####[facility] [address] [facility] [address] [place], [place], [phone] Urea nitrogen [Mass/Vol] 15 mg/dL Normal 4-19 [facility] Comment on above: Performed By: #### L 100.0100, L500.4050, L501.9520, L501.5200, L501.21207, L501.9985, L506.1001, L500.4100, L506.0400 ####[facility] [address] [facility] [place], [place], [phone] Eosinophil percentageOrdered By: Ora Nam on 08-05-2025 Eosinophils/100 WBC (Bld) 2.7 % 0-5 [facility] Erythrocyte distribution wid th ratioOrdered By: Ora Nam on 08-05-2025 Erythrocyte distribution width (RBC) [Ratio] 13.7 % 11.6-14.6 [facility] Erythrocyte distribution wid th standard deviationOrdered By: Ora Nam on 08-05-2025 Erythrocyte distribution width (RBC) [Ratio] 46.2 fl High 35.1-43.9 [facility] Free T3on 08-05-2025 Free T3 [Mass/Vol] 2.1 pg/mL Low 2.18-3.98 [facility] Comment on above: Performed By: #### L 100.0100, L500.4050, L501.9520, L501.5200, L501.93081, L501.9985, L506.1001, L500.4100, L506.0400 ####[facility] [address] [place], [place], [phone] Free D8Ncfmfcd By: Ora sifuentes on 08-05-2025 Free T3 [Mass/Vol] 2.1 pg/mL Low 2.18-3.98 [facility] Glomerular filtration rate ( GFR) estimation/1.73 sq m using serum, plasma, or whole bOrdered By: Ora Nam on 08-05-2025 GFR/1.73 sq M.predicted among non-blacks MDRD (S/P/Bld) [Vol rate/Area] 92 mL/min/{1.73_m2} >60 [facility] Comment on above: mL/min/1.73m2 CKD-EP I Creatinine Equation (2020) Hematocrit Auto (Bld) [Volum e fraction]Ordered By: Ora Nam on 08-05-2025 Hematocrit (Bld) [Volume fraction] 35.6 % Low 37-47 [facility] Hemoglobin A1con 08-05-2025 HbA1c (Bld) [Mass fraction] 4.9 % Normal <=5.6 [facility] Comment on above: Result Comment: Norm al < 5.7 % Prediabetic 5.7 - 6.4 % Diabetic >or= 6.5 % Please note range changes. Performed By: #### L 100.0100, L500.4050, L501.9520, L501.5200, L501.73699, L501.9985, L506.1001, L500.4100, L506.0400 ####[facility] [address] [place], [place], [phone] Hemoglobin A1c percentageOrd ered By: Ora Nam on 08-05-2025 HbA1c (Bld) [Mass fraction] 4.9 % <5.7 [facility] Comment on above: Normal < 5.7 % Predi abetic 5.7 - 6.4 % Diabetic >or= 6.5 % Please note range changes. Hemoglobin measurementOrdere d By: Ora Nam on 08-05-2025 Hemoglobin (Bld) [Mass/Vol] 12.4 g/dL 12.0-15.0 [facility] Immature granulocytes/100 WB C Auto (Bld)Ordered By: Ora Nam on 08-05-2025 Immature granulocytes/100 WBC (Bld) 0.300 % 0.0-0.9 [facility] Comment on above: IG% - Immature Granu locytes (promyelocytes, myelocytes and metamyelocytes) > 1% indicates that a LEFT SHIFT is Present. LDL calc ser/plasOrdered By: Ora Nam on 08-05-2025 Cholesterol in LDL [Mass/Vol] 75 mg/dL [facility] Comment on above: Prfwwsxfdv=262-006 m g/dL & Higher Tupf=888 mg/dL or greaterFriedwald Equation for LDL-C Laboratory - Chemistry and C hemistry - challengeOrdered By: Ora Nam on 08-05-2025 AST [Catalytic activity/Vol] 16 U/L <32 [facility] Lipid Profileon 08-05-2025 CHOL:HDL 2.60 Normal [facility] Comment on above: Performed By: #### L 100.0100, L500.4050, L501.9520, L501.5200, L501.68666, L501.9985, L506.1001, L500.4100, L506.0400 ####[facility] [address] [place], [place], [phone] Cholesterol [Mass/Vol] 152 mg/dL Normal <=200 [facility] Comment on above: Result Comment: Chol esterol level, Desirable <200 mg/dL Borderline high cholesterol 200-239 mg/dL High cholesterol >=240 mg/dL Recommendations of the NCEP Adult Treatment Panel for the following risk-cutoff thresholds for the [place] population. Performed By: #### L 100.0100, L500.4050, L501.9520, L501.5200, L501.61799, L501.9985, L506.1001, L500.4100, L506.0400 ####[facility] [address] [place], [address] Cholesterol in HDL [Mass/Vol] 59 mg/dL Normal [facility] Comment on above: Result Comment: Geni onal Cholesterol Education Program (NCEP) guidelines: <40 mg/dL: Low HDL-cholesterol (major risk factor for CHD) >= 60 mg/dL: High HDL-cholesterol (negative risk factor for CHD) HDL-cholesterol is affected by a number of factors, e.g. smoking, exercise, hormones, sex and age. Performed By: #### L 100.0100, L500.4050, L501.9520, L501.5200, L501.66410, L501.9985, L506.1001, L500.4100, L506.0400 ####[facility] [address] [place], [address] Cholesterol in LDL [Mass/Vol] 75 mg/dL Normal [facility] Comment on above: Result Comment: Bord mpwoue=224-708 mg/dL Higher Vtoc=345 mg/dL or greater Friedwald Equation for LDL-C Performed By: #### L 100.0100, L500.4050, L501.9520, L501.5200, L501.56123, L501.9985, L506.1001, L500.4100, L506.0400 ####[facility] [address] [place], [address] Cholesterol in VLDL [Mass/Vol] 19 mg/dL Normal 5-40 [facility] Comment on above: Performed By: #### L 100.0100, L500.4050, L501.9520, L501.5200, L501.22774, L501.9985, L506.1001, L500.4100, L506.0400 ####[facility] [address] [place], [address] Triglyceride [Mass/Vol] 93 mg/dL Normal [facility] Comment on above: Result Comment: The drugs N-Acetylcysteine and Metamizole may falsely depress this assay. Normal range: <150 mg/dL Borderline High: 150-199 mg/dL High: 200-499 mg/dL Very High: >500 mg/dL Performed By: #### L 100.0100, L500.4050, L501.9520, L501.5200, L501.08543, L501.9985, L506.1001, L500.4100, L506.0400 ####[facility] [address] [place], [place], [phone] MCV (mean corpuscular volume ) determinationOrdered By: Ora Nam on 08-05-2025 MCV (RBC) [Entitic vol] 92.7 fL 81-99 [facility] Magnesiumon 08-05-2025 Magnesium [Mass/Vol] 2.1 mg/dL Normal 1.5-2.2 [facility] Comment on above: Performed By: #### L 100.0100, L500.4050, L501.9520, L501.5200, L501.19565, L501.9985, L506.1001, L500.4100, L506.0400 ####[facility] [address] [place], [place], [phone] Magnesium measurement (mass/ volume)Ordered By: Ora Nam on 08-05-2025 Magnesium (Unsp spec) [Mass/Vol] 2.1 mg/dL 1.5-2.2 [facility] Mean corpuscular hemoglobin (MCH) determinationOrdered By: Ora Nam on 08-05-2025 MCH (RBC) [Entitic mass] 32.3 pg High 27.0-32.0 [facility] Mean corpuscular hemoglobin concentration (MCHC) determinationOrdered By: Ora Nam on 08-05-2025 MCHC (RBC) [Mass/Vol] 34.8 g/dL 32-36 [facility] Mean platelet volume determi nationOrdered By: Ora Nam on 08-05-2025 Platelet mean volume (Bld) [Entitic vol] 9.6 fL 6.2-12.0 [facility] Monocyte percentageOrdered B y: Ora Nam on 08-05-2025 Monocytes/100 WBC (Bld) 8.9 % 0-10 [facility] Neutrophil percentageOrdered By: Ora Nam on 08-05-2025 Neutrophils/100 WBC (Bld) 66.2 % 47-70 [facility] Nucleated red blood cell per centageOrdered By: Ora Nam on 08-05-2025 Nucleated RBC/100 WBC (Bld) [Ratio] 0 % 0-5 [facility] Platelet countOrdered By: Gisel Nam on 08-05-2025 Platelets (Bld) [#/Vol] 215 10*3/uL 150-450 [facility] Potassium measurement (mass/ volume)Ordered By: Ora Nam on 08-05-2025 Potassium (Unsp spec) [Mass/Vol] 4.5 mmol/L 3.3-5.1 [facility] RBC Auto (Bld) [#/Vol]Ordere d By: Ora Nam on 08-05-2025 RBC (Bld) [#/Vol] 3.84 10*6/uL Low 4.2-5.4 [facility] Screening total cholesterol/ high density lipoprotein (HDL) cholesterol ratioOrdered By: Ora Nam on 08-05-2025 Cholesterol.total/Cho lesterol in HDL [Mass ratio] 2.60 {ratio} [facility] Serum creatinine measurement (mass/volume)Ordered By: Ora Nam on 08-05-2025 Creatinine [Mass/Vol] 0.68 mg/dL Low 0.70-1.20 [facility] Serum globulin measurementOr dered By: Ora Nam on 08-05-2025 Globulin (S) [Mass/Vol] 3.4 g/dL 2.2-4.2 [facility] Serum glucose measurement (m ass/volume)Ordered By: Ora Nam on 08-05-2025 Glucose [Mass/Vol] 98 mg/dL 70-99 [facility] Serum or plasma alanine morgan otransferase (ALT) measurementOrdered By: Ora Nam on 08-05-2025 ALT [Catalytic activity/Vol] 10 U/L <35 [facility] Serum or plasma albumin irina urement (mass/volume)Ordered By: Ora Nam on 08-05-2025 Albumin [Mass/Vol] 4.1 g/dL 3.4-4.8 [facility] Serum or plasma albumin/glob ulin mass ratioOrdered By: Ora Nam on 08-05-2025 Albumin/Globulin [Mass ratio] 1.2 {ratio} 0.9-2.4 [facility] Serum or plasma alkaline jaun sphatase measurementOrdered By: Ora Nam on 08-05-2025 ALP [Catalytic activity/Vol] 58 U/L 35-104 [facility] Serum or plasma calcium irina urement (mass/volume)Ordered By: Ora Nam on 08-05-2025 Calcium [Mass/Vol] 9.6 mg/dL 7.6-11.0 [facility] Serum or plasma cholesterol in HDL measurement (mass/volume)Ordered By: Ora Nam on 08-05-2025 Cholesterol in HDL [Mass/Vol] 59 mg/dL >40 [facility] Comment on above: National Cholesterol Education Program (NCEP) guidelines:<40 mg/dL: Low HDL-cholesterol (major risk factor for CHD)>= 60 mg/dL: High HDL-cholesterol (negative risk factor for CHD)HDL-cholesterol is affected by a number of factors, e.g. smoking, exercise, hormones, sex and age. Serum or plasma cholesterol measurement (mass/volume)Ordered By: Ora Nam on 08-05-2025 Cholesterol [Mass/Vol] 152 mg/dL <201 [facility] Comment on above: Cholesterol level, D esirable <200 mg/dLBorderline high cholesterol 200-239 mg/dLHigh cholesterol >=240 mg/dLRecommendations of the NCEP Adult Treatment Panel for the following risk-cutoff thresholds for the [place] population. Serum or plasma urea nitroge n measurement (mass/volume)Ordered By: Ora Nam on 08-05-2025 Urea nitrogen [Mass/Vol] 15 mg/dL 4-19 [facility] Sodium levelOrdered By: Clare Nam on 08-05-2025 Sodium [Moles/Vol] 139 mmol/L 133-145 [facility] T4 Free Directon 08-05-2025 T4 FREE DIRECT 1.40 ng/dL Normal 0.76-1.46 [facility] Comment on above: Performed By: #### L 100.0100, L500.4050, L501.9520, L501.5200, L501.10528, L501.9985, L506.1001, L500.4100, L506.0400 ####[facility] [address] [place], [place], [phone] T4 freeOrdered By: Ora sifuentes on 08-05-2025 Free T4 [Mass/Vol] 1.40 ng/dL 0.76-1.46 [facility] TSH DL <= 0.005 mIU/L QnOrde red By: Ora Nam on 08-05-2025 TSH Qn 0.738 uIU/mL 0.300-4.20 0 [facility] Thyroid Stim Hormone (TSH)on 08-05-2025 TSH 0.738 uIU/mL Normal 0.300-4.20 0 [facility] Comment on above: Performed By: #### L 100.0100, L500.4050, L501.9520, L501.5200, L501.17725, L501.9985, L506.1001, L500.4100, L506.0400 ####[facility] [address] [place], [place], [phone] Total proteinOrdered By: Rosario Nam on 08-05-2025 Protein [Mass/Vol] 7.4 g/dL 5.9-8.4 [facility] Triglycerides measurementOrd ered By: Ora Nam on 08-05-2025 Triglyceride [Mass/Vol] 93 mg/dL <199 [facility] Comment on above: The drugs N-Acetylcy steine and Metamizole may falsely depress this assay. Normal range: <150 mg/dLBorderline High: 150-199 mg/dLHigh: 200-499 mg/dLVery High: >500 mg/dL Vitamin D,25 Hydroxyon 08-05 Vitamin D 25-OH 52.4 ng/mL Normal 30-100 [facility] Comment on above: Result Comment: Jessica min D Status Deficiency: <20 ng/mL (50nmol/L) Insufficiency: 20-30 ng/mL (50-75 nmol/L) Sufficiency: 30-100 ng/mL (75-250 nmol/L) Toxicity: >100 ng/mL (>250 nmol/L) Performed By: #### L 100.0100, L500.4050, L501.9520, L501.5200, L501.36685, L501.9985, L506.1001, L500.4100, L506.0400 ####[facility] [address] [place], [address] White blood cell (WBC) count Ordered By: Ora Nam on 08-05-2025 WBC (Bld) [#/Vol] 6.4 10*3/uL 4.4-11.0 [facility] Carotid Duplex Ultrasoundon 07-31-2025 Carotid Duplex Ultrasound [facility] [address] [facility] [place] [address] Carotid Duplex Ultrasound 07/31/25 1318 MR#: [id number] Acct: [id number] Name: MACY DOWNEY Rep #: [id number] : 1950 74 From: Arun Larson MD Attending Dr: SHAHRAM Guerra Status: REG CLI Ordering Dr: Mary Sims Date: 07/31/25 Location: [facility] Sex: F C Admitted: Reason For Study Reason For Study: HX Lt ICA CEA Rt. Velocities/BP Lt. Velocities/BP Prox CCA 106.3/13.0 cm/sec. Prox CCA 99.0/17.9 cm/sec. Mid CCA 94.1/12.7 cm/sec. Mid CCA 83.0/17.9 cm/sec. Dist CCA 79.8/16.0 cm/sec. Dist CCA 97.7/17.9 cm/sec. Prox ICA 92.0/17.6 cm/sec. Prox ICA 87.9/21.6 cm/sec. Mid ICA 90.8/18.2 cm/sec. Mid ICA 110.0/24.1 cm/sec. Dist ICA 80.9/18.2 cm/sec. Dist ICA 72.0/16.7 cm/sec. Rt. ICA/CCA = 1.0. Lt. ICA/CCA = 1.3. Prox ECA 75.4/7.3 cm/sec. Prox ECA 63.3/2.9 cm/sec. Rt. Vert. 53.5/9.1 cm/sec. Lt. Vert. 53.5/13.0 cm/sec. Right Extracranial There is intimal thickening but no significant atherosclerotic plaque noted in the right common carotid artery. There is heterogeneous, irregular atherosclerotic plaque noted in the right internal carotid artery. There is heterogeneous, irregular atherosclerotic plaque noted in the right external carotid artery. Antegrade flow is noted in the right vertebral artery. Left Extracranial There is homogeneous, smooth atherosclerotic plaque noted in the left common carotid artery. There is homogeneous, irregular atherosclerotic plaque noted in the left internal carotid artery. HX CEA. There is heterogeneous, smooth atherosclerotic plaque noted in the left external carotid artery. Antegrade flow is noted in the left vertebral artery. Procedure Carotid Duplex 65647. This is a Carotid Duplex examination using B-mode, color flow and specral Doppler. The exam was diagnostic. Exam performed in department. VL/Carotid Duplex Ultrasound Interpretation Summary Mild (<50%) stenosis right extracranial internal carotid. Mild (<50%) stenosis left extracranial internal carotid. Patent and antegrade vertebrals bilaterally. Ordering Physician: Mary Sims Referring Physician: Ora Nam Performed By: Agus Carr RVT 07/31/25 1754 Date Arun Larson MD CC: SHAHRAM Guerra; Dr. Ora Nam MD Date Dictated: 07/31/258 Date Transcribed: 07/31/25 749 Digital Marketing Consultant: Signed Normal [facility] Duplex ultrasound of carotid artery reportOrdered By: Arun Larson on 07-31-2025 Study report [facility] [address] [place] [address] Carotid Duplex Ultrasound 07/31/25 1318 MR#: [id number] Acct: [id number] Name: MACY DOWNEY Rep #:[id number] : 1950 74 From: Arnu Barclay Attending Dr: SHAHRAM Guerra Stat us: REG CLI Ordering Dr: Mary Sims Date: Location: [facility] Sex: F C Admitted: Reason For Study Reason For Study: HX Lt ICA CEA Rt. Velocities/BP Lt. Velocities/BP Prox CCA 106.3/13.0 cm/sec. Prox CCA 99.0/17.9 cm/sec. Mid CCA 94.1/12.7 cm/sec. Mid CCA 83.0/17.9 cm/sec. Dist CCA 79.8/16.0 cm/sec. Dist CCA 97.7/17.9 cm/sec. Prox ICA 92.0/17.6 cm/sec. Prox ICA 87.9/21.6 cm/sec. Mid ICA 90.8/18.2 cm/sec. Mid ICA 110.0/24.1 cm/sec. Dist ICA 80.9/18.2 cm/sec. Dist ICA 72.0/16.7 cm/sec. Rt. ICA/CCA = 1.0. Lt. ICA/CCA = 1.3. Prox ECA 75.4/7.3 cm/sec. Prox ECA 63.3/2.9 cm/sec. Rt. Vert. 53.5/9.1 cm/sec. Lt. Vert. 53.5/13.0 cm/sec. Right Extracranial There is intimal thickening but no significant atherosclerotic plaque noted in the right common carotid artery. There is heterogeneous, irregular atherosclerotic plaque noted in the right internal carotid artery. There is heterogeneous, irregular atherosclerotic plaque noted in the right external carotid artery. Antegrade flow is noted in the right vertebral artery. Left Extracranial There is homogeneous, smooth atherosclerotic plaque noted in the left common carotid artery. There is homogeneous, irregular atherosclerotic plaque noted in the left internal carotid artery. HX CEA. There is heterogeneous, smooth atherosclerotic plaque noted in the left external carotid artery. Antegrade flowis noted in the left vertebral artery. Procedure Carotid Duplex 24830. This is a Carotid Duplex examination using B-mode, color flow and specral Doppler. The exam was diagnostic. Exam performed in department. VL/Carotid Duplex Ultrasound Interpretation Summary Mild (<50%) stenosis right extracranial internal carotid. Mild (<50%) stenosis left extracranial internal carotid. Patent and antegrade vertebrals bilaterally. Ordering Physician: Mary Sims Referring Physician: Ora Nam Performed By: Agus Carr [facility] 07/31/251753 Date _ Arun Larson MD CC: SHAHRAM Guerra; Dr. Ora Nam MD ~ Date Dictated: 07/31/25 1318 Date Transcribed: 07/31/251753 Digital Marketing Consultant: Signed [facility] Telephone (OBGYWM) MACY DOWNEY ([id number]) 1950 F Date Time Provider Department 07/05/25 REE FLETCHER During your visit today, we recorded the following information about you: Teetee Jung RN 07/05/2025 12:12 PM Addendum Patient is scheduled for f/u right breast diagnostic mammogram/ultrasound 08/06. She is late getting this done so since she is due for screening mammogram in July mammography dept requesting bilateral diagnostic mammo order instead. Please file. DIXON Gross Sara, MD 07/05/2025 1:49 PM Signed filed Allergies As of Date: 07/05/2025 Noted Allergy Reaction AMOXICILLIN 02/21/2009 6 - Diarrhea GLUCOPHAGE XR (METFORMIN HCL) 03/29/2007 6 - Diarrhea 8 - GI Upset Comments: Bloating CYMBALTA (DULOXETINE) 06/28/2017 14 - Other: See Comments Comments: Neuropathy , electrical shocks GLIPIZIDE 06/28/2017 16 - Unknown NEXIUM (ESOMEPRAZOLE MAGNESIUM) 08/04/2016 14 - Other: See Comments Comments: Ineffective OMEPRAZOLE 08/04/2016 14 - Other: See Comments Comments: Ineffective PENICILLINS 05/02/2023 8 - GI Upset PROTONIX (PANTOPRAZOLE SODIUM) 08/04/2016 14 - Other: See Comments Comments: Ineffective ALTACE (RAMIPRIL) 08/04/2005 14 - Other: See Comments Comments: Blurred vision ZANTAC (RANITIDINE HCL) 08/04/2005 2 - Rash 9 - Itching Date Reviewed: 10/10/2024 Reviewed by: Seb Amezcua, RT(R) - Fully Assessed Reason for Visit: Orders [681] Primary Visit Diagnosis:Category 3 mammography result with short follow-up interval suggested for probably benign finding [R92.8] Order(s):GINA DIAGNOSTIC BILATERAL [[id number]] Order #: [id number] FUTURE Prescriptions as of 07/05/2025 - metoprolol tartrate, short acting, (LOPRESSOR) 100 mg tablet Take 100 mg by mouth two times a day. - spironolactone (ALDACTONE) 25 mg tablet Take 1 tablet by mouth every morning. - ranolazine ER (RANEXA) 500 mg 12 hr tablet Take 1 tablet by mouth two times a day. - estradiol (VIVELLE-DOT) 0.075 mg/24 hr patch Apply 1 Patch as directed two times a week. - BROMSITE 0.075 % drop 1 Drop. - fluorometholone (FML LIQUID FILM) 0.1 % ophthalmic suspension 1 Drop twice daily. - ofloxacin (OCUFLOX) 0.3 % ophthalmic solution - levothyroxine 175 mcg cap Take 175 mcg by mouth daily before breakfast. - ascorbic acid (VITAMIN C ORAL) Take by mouth. - aspirin 81 mg cap Take by mouth. - d-mannose (AZO D-MANNOSE) 500 mg cap Take by mouth. - metoprolol succinate ER (TOPROL XL) 50 mg 24 hr tablet Take 100 mg by mouth twice daily. - Red Yeast Rice Extract 600 mg cap Take by mouth. - IBUPROFEN ORAL Take 200 mg by mouth twice daily as needed. - levothyroxine (SYNTHROID) 25 mcg tablet Take 1 tablet by mouth once daily. Take on empty stomach. For thyroid. - liraglutide (VICTOZA) 0.6 mg/ 0.1 ml subcutaneous pen injector INJECT 1.2 MILLIGRAM(S) BY SUBCUTANEOUS ROUTE , 1 TIME PER DAY , FOR 30 DAYS - lansoprazole (PREVACID) 30 mg capsule Take 1 capsule by mouth once daily. - potassium chloride (KLOR-CON 10) 10 mEq tablet Take 2 tablets by mouth twice daily. - triamterene-hydrochlorothia zide (MAXZIDE-25) 37.5-25 mg per tablet Take 0.5 tablets by mouth once daily. - fluticasone (FLONASE) 50 mcg/actuation nasal spray Use 2 Sprays in each nostril once daily. - losartan (COZAAR) 25 mg tablet Take 0.5 tablets by mouth once daily. - famotidine (PEPCID) 20 mg tablet Take 1 tablet by mouth twice daily. - cholecalciferol (VITAMIN D3) 5,000 unit tab Take 5,000 Units by mouth once daily. - Insulin Wayan, Disposable, (NOVOFINE 30) 30 gauge x 1/3 ndle 1 Device once daily. - rosuvastatin (CRESTOR) 20 mg tablet Take 20 mg by mouth once daily. - amLODIPine (NORVASC) 10 mg tablet Take 1 tablet by mouth once daily. - Psyllium powd Take by mouth. - MULTIVITAMIN TAB Take one(1) tablet daily. Problem List As Of Date 07/05/2025 Noted Resolved Type II or unspecified type diabetes mellitus w* 07/27/2014 Rheumatoid arthritis (HCC) [M06.9] ASTHMA UNSPECIFIED [J45.909] Diffuse cystic mastopathy [N60.19] 08/04/2016 HYPERTENSION NOS [I10] 08/05/2015 ALLERGY, UNSPECIFIED [T78.40XA] Other hyperlipidemia [E78.49] 03/29/2007 Sprain and strain of unspecified site of should*09/15/2007 08/04/2016 OBESITY [E66.9] 06/20/2009 02/06/2015 Multinodular goiter (nontoxic) [E04.2] 07/22/2009 Abdominal pain [R10.9] 08/01/2009 10/19/2013 GERD (Gastroesophageal Reflux Disease) [K21.9] 08/07/2009 Abdominal pain, unspecified site [R10.9] 08/07/2009 10/17/2013 BMI 45.0-49.9, adult [Z68.42] 09/26/2013 DM w/ coma type II, uncontrolled ([facility]) [[id number]]04/08/2014 07/27/2014 Diabetes mellitus type 2, controlled, without c*07/27/2014 Chronic rheumatic arthritis (HCC) [M06.9] 02/06/2015 08/04/2016 Depression [F32.A] 08/04/2016 10/19/2019 Vitamin D deficiency [E55.9] 08/04/2016 Essential hype (more content not included)... Normal [facility] [place] 12-12-2024 BREEZYN Telephone (OBGYWM) MACY DOWNEY ([id number]) 1950 F Date Time Provider Department 12/12/24 REE FLETCHER During your visit today, we recorded the following information about you: Melania Alanis RN 12/12/2024 1:42 PM Signed Patient is needing a new PA for Vivelle Dot brand name patch since it is a new year. This is the only one she is not allergic to. Last authorization was 02/17/24. DIXON Zamora [place], [place] 12/25/2024 1:45 PM Signed PA for Vivelle-Dot submitted and received response that it was approved. Allergies As of Date: 12/12/2024 Noted Allergy Reaction AMOXICILLIN 02/21/2009 6 - Diarrhea GLUCOPHAGE XR (METFORMIN HCL) 03/29/2007 6 - Diarrhea 8 - GI Upset Comments: Bloating CYMBALTA (DULOXETINE) 06/28/2017 14 - Other: See Comments Comments: Neuropathy , electrical shocks GLIPIZIDE 06/28/2017 16 - Unknown NEXIUM (ESOMEPRAZOLE MAGNESIUM) 08/04/2016 14 - Other: See Comments Comments: Ineffective OMEPRAZOLE 08/04/2016 14 - Other: See Comments Comments: Ineffective PENICILLINS 05/02/2023 8 - GI Upset PROTONIX (PANTOPRAZOLE SODIUM) 08/04/2016 14 - Other: See Comments Comments: Ineffective ALTACE (RAMIPRIL) 08/04/2005 14 - Other: See Comments Comments: Blurred vision ZANTAC (RANITIDINE HCL) 08/04/2005 2 - Rash 9 - Itching Date Reviewed: 10/10/2024 Reviewed by: Seb Amezcua, RT(R) - Fully Assessed Reason for Visit: Insurance Authorization [[id number]] Prescriptions as of 12/25/2024 - metoprolol tartrate, short acting, (LOPRESSOR) 100 mg tablet Take 100 mg by mouth two times a day. - spironolactone (ALDACTONE) 25 mg tablet Take 1 tablet by mouth every morning. - ranolazine ER (RANEXA) 500 mg 12 hr tablet Take 1 tablet by mouth two times a day. - estradiol (VIVELLE-DOT) 0.075 mg/24 hr patch Apply 1 Patch as directed two times a week. - BROMSITE 0.075 % drop 1 Drop. - fluorometholone (FML LIQUID FILM) 0.1 % ophthalmic suspension 1 Drop twice daily. - ofloxacin (OCUFLOX) 0.3 % ophthalmic solution - levothyroxine 175 mcg cap Take 175 mcg by mouth daily before breakfast. - ascorbic acid (VITAMIN C ORAL) Take by mouth. - aspirin 81 mg cap Take by mouth. - d-mannose (AZO D-MANNOSE) 500 mg cap Take by mouth. - metoprolol succinate ER (TOPROL XL) 50 mg 24 hr tablet Take 100 mg by mouth twice daily. - Red Yeast Rice Extract 600 mg cap Take by mouth. - IBUPROFEN ORAL Take 200 mg by mouth twice daily as needed. - levothyroxine (SYNTHROID) 25 mcg tablet Take 1 tablet by mouth once daily. Take on empty stomach. For thyroid. - liraglutide (VICTOZA) 0.6 mg/ 0.1 ml subcutaneous pen injector INJECT 1.2 MILLIGRAM(S) BY SUBCUTANEOUS ROUTE , 1 TIME PER DAY , FOR 30 DAYS - lansoprazole (PREVACID) 30 mg capsule Take 1 capsule by mouth once daily. - potassium chloride (KLOR-CON 10) 10 mEq tablet Take 2 tablets by mouth twice daily. - triamterene-hydrochlorothia zide (MAXZIDE-25) 37.5-25 mg per tablet Take 0.5 tablets by mouth once daily. - fluticasone (FLONASE) 50 mcg/actuation nasal spray Use 2 Sprays in each nostril once daily. - losartan (COZAAR) 25 mg tablet Take 0.5 tablets by mouth once daily. - famotidine (PEPCID) 20 mg tablet Take 1 tablet by mouth twice daily. - cholecalciferol (VITAMIN D3) 5,000 unit tab Take 5,000 Units by mouth once daily. - Insulin Wayan, Disposable, (NOVOFINE 30) 30 gauge x 1/3 ndle 1 Device once daily. - rosuvastatin (CRESTOR) 20 mg tablet Take 20 mg by mouth once daily. - amLODIPine (NORVASC) 10 mg tablet Take 1 tablet by mouth once daily. - Psyllium powd Take by mouth. - MULTIVITAMIN TAB Take one(1) tablet daily. Problem List As Of Date 12/12/2024 Noted Resolved Type II or unspecified type diabetes mellitus w* 07/27/2014 Rheumatoid arthritis (HCC) [M06.9] ASTHMA UNSPECIFIED [J45.909] Diffuse cystic mastopathy [N60.19] 08/04/2016 HYPERTENSION NOS [I10] 08/05/2015 ALLERGY, UNSPECIFIED [T78.40XA] Other hyperlipidemia [E78.49] 03/29/2007 Sprain and strain of unspecified site of should*09/15/2007 08/04/2016 OBESITY [E66.9] 06/20/2009 02/06/2015 Multinodular goiter (nontoxic) [E04.2] 07/22/2009 Abdominal pain [R10.9] 08/01/2009 10/19/2013 GERD (Gastroesophageal Reflux Disease) [K21.9] 08/07/2009 Abdominal pain, unspecified site [R10.9] 08/07/2009 10/17/2013 BMI 45.0-49.9, adult [Z68.42] 09/26/2013 DM w/ coma type II, uncontrolled ([facility]) [[id number]]04/08/2014 07/27/2014 Diabetes mellitus type 2, controlled, without c*07/27/2014 Chronic rheumatic arthritis (HCC) [M06.9] 02/06/2015 08/04/2016 Depression [F32.A] 08/04/2016 10/19/2019 Vitamin D deficiency [E55.9] 08/04/2016 Essential hypertension [I10] Hypothyroidism [E03.9] Encounter Status:Closed by SEB DEWEY on 12/25/24 [facility] T[facility] 10-17-2024 Free T3 [Mass/Vol] 2.1 pg/mL Low 2.18-3.98 [facility] Comment on above: Performed By: #### L 501.9570, L501.74569, L506.0400 #### [facility] [address] [place], [address] T4 Free Directon 10-17-2024 T4 FREE DIRECT 1.32 ng/dL Normal 0.76-1.46 [facility] Comment on above: Performed By: #### L 501.9520, L501.21971, L506.0400 #### [facility] [address] [place], [address] Thyroid Stim Hormone (TSH)on 10-17-2024 TSH 0.725 uIU/mL Normal 0.358-3.74 0 [facility] Comment on above: Performed By: #### L 501.9520, L501.14520, L506.0400 #### [facility] [address] [place], [address] CNPNon 10-12-2024 CNPN Telephone (OBGYWM) MACY DOWNEY ([id number]) 1950 F Date Time Provider Department 10/12/24 REE FLETCHER OBGYWM During your visit today, we recorded the following information about you: Portia Lovett 10/12/2024 10:57 AM Signed Patient called and states that the surgeon advised her to follow up in six months for a diagnostic mammogram. No order is available in patient's chart. Please submit necessary orders and notify schedulers if needing only mammogram or both mammogram and US in six months. Ree Fletcher MD 10/12/2024 3:07 PM Signed Filed thanks Melania Alanis RN 10/12/2024 3:17 PM Signed Left message to call office. DIXON Zamora Lindsey, RN 10/12/2024 3:27 PM Signed Patient notified and voiced understanding. Transferred to [facility] to schedule. Melania Alanis RN Allergies As of Date: 10/12/2024 Noted Allergy Reaction AMOXICILLIN 02/21/2009 6 - Diarrhea GLUCOPHAGE XR (METFORMIN HCL) 03/29/2007 6 - Diarrhea 8 - GI Upset Comments: Bloating CYMBALTA (DULOXETINE) 06/28/2017 14 - Other: See Comments Comments: Neuropathy , electrical shocks GLIPIZIDE 06/28/2017 16 - Unknown NEXIUM (ESOMEPRAZOLE MAGNESIUM) 08/04/2016 14 - Other: See Comments Comments: Ineffective OMEPRAZOLE 08/04/2016 14 - Other: See Comments Comments: Ineffective PENICILLINS 05/02/2023 8 - GI Upset PROTONIX (PANTOPRAZOLE SODIUM) 08/04/2016 14 - Other: See Comments Comments: Ineffective ALTACE (RAMIPRIL) 08/04/2005 14 - Other: See Comments Comments: Blurred vision ZANTAC (RANITIDINE HCL) 08/04/2005 2 - Rash 9 - Itching Date Reviewed: 10/10/2024 Reviewed by: Seb Amezcua, RT(R) - Fully Assessed Reason for Visit: Orders [681] Cmt: Diagnostic Mammogram Primary Visit Diagnosis:Category 3 mammography result with short follow-up interval suggested for probably benign finding [R92.8] Order(s):[facility] [[id number]] Order #: [id number] FUTURE BREAST LTD RIGHT [[id number]] Order #: [id number] FUTURE Prescriptions as of 10/12/2024 - metoprolol tartrate, short acting, (LOPRESSOR) 100 mg tablet Take 100 mg by mouth two times a day. - spironolactone (ALDACTONE) 25 mg tablet Take 1 tablet by mouth every morning. - ranolazine ER (RANEXA) 500 mg 12 hr tablet Take 1 tablet by mouth two times a day. - estradiol (VIVELLE-DOT) 0.075 mg/24 hr patch Apply 1 Patch as directed two times a week. - BROMSITE 0.075 % drop 1 Drop. - fluorometholone (FML LIQUID FILM) 0.1 % ophthalmic suspension 1 Drop twice daily. - ofloxacin (OCUFLOX) 0.3 % ophthalmic solution - levothyroxine 175 mcg cap Take 175 mcg by mouth daily before breakfast. - ascorbic acid (VITAMIN C ORAL) Take by mouth. - aspirin 81 mg cap Take by mouth. - d-mannose (AZO D-MANNOSE) 500 mg cap Take by mouth. - metoprolol succinate ER (TOPROL XL) 50 mg 24 hr tablet Take 100 mg by mouth twice daily. - Red Yeast Rice Extract 600 mg cap Take by mouth. - IBUPROFEN ORAL Take 200 mg by mouth twice daily as needed. - levothyroxine (SYNTHROID) 25 mcg tablet Take 1 tablet by mouth once daily. Take on empty stomach. For thyroid. - liraglutide (VICTOZA) 0.6 mg/ 0.1 ml subcutaneous pen injector INJECT 1.2 MILLIGRAM(S) BY SUBCUTANEOUS ROUTE , 1 TIME PER DAY , FOR 30 DAYS - lansoprazole (PREVACID) 30 mg capsule Take 1 capsule by mouth once daily. - potassium chloride (KLOR-CON 10) 10 mEq tablet Take 2 tablets by mouth twice daily. - triamterene-hydrochlorothia zide (MAXZIDE-25) 37.5-25 mg per tablet Take 0.5 tablets by mouth once daily. - fluticasone (FLONASE) 50 mcg/actuation nasal spray Use 2 Sprays in each nostril once daily. - losartan (COZAAR) 25 mg tablet Take 0.5 tablets by mouth once daily. - famotidine (PEPCID) 20 mg tablet Take 1 tablet by mouth twice daily. - cholecalciferol (VITAMIN D3) 5,000 unit tab Take 5,000 Units by mouth once daily. - Insulin Wayan, Disposable, (NOVOFINE 30) 30 gauge x 1/3 ndle 1 Device once daily. - rosuvastatin (CRESTOR) 20 mg tablet Take 20 mg by mouth once daily. - amLODIPine (NORVASC) 10 mg tablet Take 1 tablet by mouth once daily. - Psyllium powd Take by mouth. - MULTIVITAMIN TAB Take one(1) tablet daily. Problem List As Of Date 10/12/2024 Noted Resolved Type II or unspecified type diabetes mellitus w* 07/27/2014 Rheumatoid arthritis (HCC) [M06.9] ASTHMA UNSPECIFIED [J45.909] Diffuse cystic mastopathy [N60.19] 08/04/2016 HYPERTENSION NOS [I10] 08/05/2015 ALLERGY, UNSPECIFIED [T78.40XA] Other hyperlipidemia [E78.49] 03/29/2007 Sprain and strain of unspecified site of should*09/15/2007 08/04/2016 OBESITY [E66.9] 06/20/2009 02/06/2015 Multinodular goiter (nontoxic) [E04.2] 07/22/2009 Abdominal pain [R10.9] 08/01/2009 10/19/2013 GERD (Gastroesophageal Reflux Disease) [K21.9] 08/07/2009 Abdominal pain, unspecified site [R10.9] 08/07/2009 10/17/2013 BM (more content not included)... Normal [facility] Cardiology Visit Reporton Cardiology Visit Report [facility] [address] [place] [address] OFFICE VISIT Date of Service: 10/12/24 MR#: [id number] Acct: [id number] Name: MACY DOWNEY Rep #: [id number] : 1950 Provider: SHAHRAM Munson Age/Sex: 74/F Location: [facility] Status: Signed HPI HPI History of Present Illness Details: This is a 74-year-old white female who presents today for outpatient cardiovascular follow-up visit. She has a history of PAF, hyperlipidemia, hypertension, and pulmonary hypertension. She underwent a left carotid endarterectomy August of 2022. Her stress test from February of 2023 was abnormal. She underwent a cardiac catheterization on 04/05/2023 which demonstrated single-vessel diagonal 80% stenosis, and mild disease in her LAD, circumflex and RCA (less than 30%). Medical therapy was recommended at that time. From a cardiac standpoint, patient is doing well. She does not have any chest discomfort/heaviness/tightn ess. This has improved with medication changes since her heart cath. She does not have any worsening symptoms of shortness of breath. She does have SOB with exertion, this is similar but over the last year. She does not have any orthopnea. She denies PND. She does not have any symptoms of congestive heart failure. She does not have any palpitations that she is aware of. She does not have any lightheadedness or dizziness. She does not have any near-syncope or syncope. She does not have any lower extremity edema. She does not have any symptoms of claudication. Intake Vital Signs 09/11/24 06:43 10/12/24 12:56 Height 5 ft 2 in 5 ft 2 in Weight: 263 lb BMI 48.1 BP 135/73 H Blood Pressure Location Lt brachial Position Sitting Respiration 18 Pulse 60 Pulse Source Monitor Pulse Oximetry (%) 96 Intake Visit Reasons: 3 M FU Pharmacy Associate Required: No Is patient in pain?: No Allergies amoxicillin Allergy (Verified 10/12/24 12:56) Unknown duloxetine (From Cymbalta) Allergy (Verified 10/12/24 12:56) neuropathy losartan (Losartan) Allergy (Verified 10/12/24 12:56) Unknown ramipril Allergy (Verified 10/12/24 12:56) Unknown ranitidine HCl (From Zantac) Allergy (Verified 10/12/24 12:56) Unknown meloxicam (From Mobic) Adverse Reaction (Severe, Verified 10/12/24 12:56) Heartburn celecoxib (From Celebrex) Adverse Reaction (Verified 10/12/24 12:56) Upset Stomach cortisone Adverse Reaction (Verified 10/12/24 12:56) emotional issues glimepiride Adverse Reaction (Verified 10/12/24 12:56) Nausea/Vom/Diarrhea metformin HCl (From Glucophage) Adverse Reaction (Verified 10/12/24 12:56) Nausea/Vom/Diarrhea methotrexate Adverse Reaction (Verified 10/12/24 12:56) Unknown Penicillins Adverse Reaction (Verified 10/12/24 12:56) Nausea/Vom/Diarrhea pravastatin Adverse Reaction (Verified 10/12/24 12:56) MUSCLE PAIN Medications ???Medication ???Instructions ???Recorded ???Confirmed ???Type fluticasone propionate 50 1 spray NASAL DAILY PRN Congestion 09/29/15 10/12/24 History mcg/actuation nasal spray,suspension cholecalciferol (vitamin D3) 50 5,000 unit PO DAILY SUPPLEMENT 08/24/17 10/12/24 History mcg (2,000 unit) capsule ascorbate calcium (vitamin C) 500 500 mg PO DAILY SUPPLEMENT 07/10/20 10/12/24 History mg tablet artifi.tears(hypromellose)( PF) 0.3 1 drp ophthalmic (eye) DAILY PRN 05/31/22 10/12/24 History % eye drops Dry Eye(S) aspirin 81 mg tablet,delayed 81 mg PO QDAY HEART HEALTH 09/09/22 10/12/24 History release (Adult Aspirin Regimen) estradiol 0.1 mg/24 hr semiweekly 0.1 mg topical SUWE MENOPAUSE 09/09/22 10/12/24 History transdermal patch (Vivelle-Dot) ibuprofen 800 mg tablet 800 mg PO BID PRN PAIN 03/15/23 12/13/24 History rosuvastatin 5 mg tablet 5 mg PO DAILY #90 tabs 05/16/24 10/12/24 Rx spironolactone 25 mg tablet 25 mg PO DAILY Heart 05/16/24 10/12/24 History omeprazole magnesium 20 mg 40 mg PO DAILY GERD 05/22/24 10/12/24 History capsule,delayed release (Acid 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)) psyllium husk 0.4 gram capsule 0.4 g PO DAILY PRN constipation 05/22/24 10/12/24 History (Metamucil) amlodipine 5 mg tablet 5 mg PO .COMPLEX #180 tabs 06/18/24 10/12/24 Rx levothyroxine 175 mcg tablet 175 mcg PO DAILY #90 tabs 06/25/24 10/12/24 Rx metoprolol tartrate 100 mg tablet 100 mg PO BID DO NOT USE Aurobin 06/25/24 10/12/24 Rx brand generic #180 tabs semaglutide 0.25 mg or 0.5 mg (2 0.25 mg subcut PULLIAM 09/06/24 10/12/24 History mg/3 mL) subcutaneous pen injector (Ozempic) ranolazine 500 mg tablet,extended 1,000 mg (2 x 500 mg) PO .COMPLEX 10/05/24 10/12/24 Rx release,12 hr #360 tabs Have you fallen in the past year?: No [facility] Medical History PONV (postoperative nausea and (more content not included)... [facility] 10-11-2024 [facility] Telephone (RADMN) MACY DOWNEY ([id number]) 1950 F Date Time Provider Department 10/11/24 SHILPI, ELIZABETH MARÍA RADMN During your visit today, we recorded the following information about you: Allergies As of Date: 10/11/2024 Noted Allergy Reaction AMOXICILLIN 02/21/2009 6 - Diarrhea GLUCOPHAGE XR (METFORMIN HCL) 03/29/2007 6 - Diarrhea 8 - GI Upset Comments: Bloating CYMBALTA (DULOXETINE) 06/28/2017 14 - Other: See Comments Comments: Neuropathy , electrical shocks GLIPIZIDE 06/28/2017 16 - Unknown NEXIUM (ESOMEPRAZOLE MAGNESIUM) 08/04/2016 14 - Other: See Comments Comments: Ineffective OMEPRAZOLE 08/04/2016 14 - Other: See Comments Comments: Ineffective PENICILLINS 05/02/2023 8 - GI Upset PROTONIX (PANTOPRAZOLE SODIUM) 08/04/2016 14 - Other: See Comments Comments: Ineffective ALTACE (RAMIPRIL) 08/04/2005 14 - Other: See Comments Comments: Blurred vision ZANTAC (RANITIDINE HCL) 08/04/2005 2 - Rash 9 - Itching Date Reviewed: 10/10/2024 Reviewed by: Seb Amezcua, RT(R) - Fully Assessed Reason for Visit: Results [95] Prescriptions as of 10/11/2024 - metoprolol tartrate, short acting, (LOPRESSOR) 100 mg tablet Take 100 mg by mouth two times a day. - spironolactone (ALDACTONE) 25 mg tablet Take 1 tablet by mouth every morning. - ranolazine ER (RANEXA) 500 mg 12 hr tablet Take 1 tablet by mouth two times a day. - estradiol (VIVELLE-DOT) 0.075 mg/24 hr patch Apply 1 Patch as directed two times a week. - BROMSITE 0.075 % drop 1 Drop. - fluorometholone (FML LIQUID FILM) 0.1 % ophthalmic suspension 1 Drop twice daily. - ofloxacin (OCUFLOX) 0.3 % ophthalmic solution - levothyroxine 175 mcg cap Take 175 mcg by mouth daily before breakfast. - ascorbic acid (VITAMIN C ORAL) Take by mouth. - aspirin 81 mg cap Take by mouth. - d-mannose (AZO D-MANNOSE) 500 mg cap Take by mouth. - metoprolol succinate ER (TOPROL XL) 50 mg 24 hr tablet Take 100 mg by mouth twice daily. - Red Yeast Rice Extract 600 mg cap Take by mouth. - IBUPROFEN ORAL Take 200 mg by mouth twice daily as needed. - levothyroxine (SYNTHROID) 25 mcg tablet Take 1 tablet by mouth once daily. Take on empty stomach. For thyroid. - liraglutide (VICTOZA) 0.6 mg/ 0.1 ml subcutaneous pen injector INJECT 1.2 MILLIGRAM(S) BY SUBCUTANEOUS ROUTE , 1 TIME PER DAY , FOR 30 DAYS - lansoprazole (PREVACID) 30 mg capsule Take 1 capsule by mouth once daily. - potassium chloride (KLOR-CON 10) 10 mEq tablet Take 2 tablets by mouth twice daily. - triamterene-hydrochlorothia zide (MAXZIDE-25) 37.5-25 mg per tablet Take 0.5 tablets by mouth once daily. - fluticasone (FLONASE) 50 mcg/actuation nasal spray Use 2 Sprays in each nostril once daily. - losartan (COZAAR) 25 mg tablet Take 0.5 tablets by mouth once daily. - famotidine (PEPCID) 20 mg tablet Take 1 tablet by mouth twice daily. - cholecalciferol (VITAMIN D3) 5,000 unit tab Take 5,000 Units by mouth once daily. - Insulin Wayan, Disposable, (NOVOFINE 30) 30 gauge x 1/3 ndle 1 Device once daily. - rosuvastatin (CRESTOR) 20 mg tablet Take 20 mg by mouth once daily. - amLODIPine (NORVASC) 10 mg tablet Take 1 tablet by mouth once daily. - Psyllium powd Take by mouth. - MULTIVITAMIN TAB Take one(1) tablet daily. Problem List As Of Date 10/11/2024 Noted Resolved Type II or unspecified type diabetes mellitus w* 07/27/2014 Rheumatoid arthritis (HCC) [M06.9] ASTHMA UNSPECIFIED [J45.909] Diffuse cystic mastopathy [N60.19] 08/04/2016 HYPERTENSION NOS [I10] 08/05/2015 ALLERGY, UNSPECIFIED [T78.40XA] Other hyperlipidemia [E78.49] 03/29/2007 Sprain and strain of unspecified site of should*09/15/2007 08/04/2016 OBESITY [E66.9] 06/20/2009 02/06/2015 Multinodular goiter (nontoxic) [E04.2] 07/22/2009 Abdominal pain [R10.9] 08/01/2009 10/19/2013 GERD (Gastroesophageal Reflux Disease) [K21.9] 08/07/2009 Abdominal pain, unspecified site [R10.9] 08/07/2009 10/17/2013 BMI 45.0-49.9, adult [Z68.42] 09/26/2013 DM w/ coma type II, uncontrolled (HCC) [[id number]]04/08/2014 07/27/2014 Diabetes mellitus type 2, controlled, without c*07/27/2014 Chronic rheumatic arthritis (HCC) [M06.9] 02/06/2015 08/04/2016 Depression [F32.A] 08/04/2016 10/19/2019 Vitamin D deficiency [E55.9] 08/04/2016 Essential hypertension [I10] Hypothyroidism [E03.9] Encounter Status:Closed by ELIZABETH DOBBINS on 10/11/24 Normal [facility] GINA STEREO BX BREAST RTon GINA STEREO BX BREAST RT * * *Final Report* * * * * * SEE BOTTOM OF REPORT FOR ADDENDED TEXT * * * DATE OF EXAM: Oct 10 2024 3:07PM [facility] [id number] - GINA STEREO BX BREAST RT / PROCEDURE REASON: Breast calcification, right * * * * Physician Interpretation * * * * RESULT: [place] [id number] - - - - - - - - - - ADDENDED REPORT - - - - - - - - - - 10/15/2024 at 12:57:11 Addendum: The final pathology results of the patient's stereotactic core biopsy demonstrate the following: Site 1 - (right breast) Right Breast, Lower Outer Quadrant, Normal Biopsy With Top-Hat Clip Placement: - Breast Tissue With Usual Ductal Hyperplasia, Stromal Fibrosis, Apocrine Cysts, and Microcalcifications Within The Glands. - Changes Consistent With Ruptured Cyst. Electronically Signed By Karey Caballero MD On 10/11/2024 at 11:37 Am This is concordant with the imaging findings. RECOMMENDATION Site 1: Six month follow up mammogram A breast imaging nurse navigator contacted the patient with the results and recommendations. Follow-up with diagnostic imaging is recommended in 6 months. Interpreting Radiologist: Radha Thrasher M.D. Electronically signed on: 10/15/2024 - - - - - - - - - - ORIGINAL REPORT - - - - - - - - - - #[id number] - GINA STEREO BX BREAST RT HISTORY: 74 year old patient presents for a stereotactic biopsy of the following: Site 1: Calcifications located in the right breast in the lower outer quadrant, posterior depth PATIENT CONSENT: A time out was performed immediately prior to procedure start with the radiology team, correctly identifying the patient name, date of , procedure, anatomy (including marking of site and side), patient position, relevant diagnostic and radiology test results, safety precautions, and procedure-specific equipment needs. The procedure, along with the risks (including, but not limited to, infection and bleeding), benefits, and alternatives, was explained to the patient by the performing physician. The patient agreed to undergo the procedure. Medications and allergies were also reviewed. The radiologist and technologist were present throughout the entire procedure. PROCEDURE: Correlation is made to exams dated: 08/27/2024 (mammogram) and 09/19/2024 (mammogram). Site 1: Calcifications located in the right breast in the lower outer quadrant, posterior depth Audible Time Out: 14:41 Procedure Start: 14:42 Procedure End: 14:50 A stereotactic biopsy was performed for the calcifications located in the right breast in the lower outer quadrant, posterior depth. This was described on the previous mammography report. The skin was prepped in the usual manner. The abnormality was approached from the inferior aspect using a prone table. 15 ml of local anesthetic agent was administered. A skin justin was made in the breast. A 12 gauge biopsy needle was placed adjacent to the calcifications under computer guidance and confirmatory stereotactic mammography images were obtained to document needle placement. Once the needle was documented to be in the correct location, 7 samples were obtained using the vacuum-assisted system. A top hat biopsy marker was then placed under mammogram guidance. A skin closure strip and a sterile dressing were applied to the access site. The specimen was sent to the laboratory for pathological analysis. Post-procedure mammogram: The top hat biopsy marker is in appropriate position at the calcifications. Post-procedure mammogram density: The breasts are heterogeneously dense, which may obscure small masses. IMPRESSION: STEREOTACTIC GUIDED BIOPSY Site 1: Stereotactic biopsy of calcifications located in the right breast in the lower outer quadrant, posterior depth with placement of a top hat biopsy marker. Procedure was successful. Waiting for pathology result. An amendment will be issued to this report when pathology results become available. The top hat biopsy marker is in appropriate position at the calcifications. The specimen radiograph includes calcifications. There were no biopsy complications observed. Interpreting Radiologist: Radha Thrasher M.D. Electronically signed on: 10/10/2024 Digital Marketing Consultant: ROSCOE Transcribe Date/Time: Oct 10 2024 2:24P Dictated by : RADHA THRASHER MD This examination was interpreted and the report reviewed and electronically signed by: RADHA THRASHER MD on Oct 10 2024 3:18PM EST This document has been addended by: RADHA THRASHER MD on Oct 15 2024 12:57PM EST [id number] Normal [facility] PT EDon 10-10-2024 PT ED HNO ID: [id number] Author: SEB AMEZCUA RT(R) Service: Radiology Author Type: Technologist Type: Patient Education Filed: 10/10/2024 15:06 Note Text: AMBULATORY PATIENT EDUCATION RADIOLOGY TOPIC: Pre- Procedure Teaching:Logistics / Protocols / Complication Prevention Post- Procedure Teaching: Symptom Management / Wound Care READINESS TO LEARN COGNITIVE ABILITY: Alert and oriented MOTIVATION TO LEARN: Interested FAMILY SUPPORT: Unable to assess - Family not present INSTRUCTION PROVIDED TO: Patient PATIENT LEARNS BEST BY: Individual Instruction Written Instruction - Hand-outs Verbal Instruction FACTORS AFFECTING LEARNING: None PHYSICAL LIMITATIONS AFFECTING LEARNING: None LEARNING RESPONSE Radiology Procedures Breast BX, Vacuum Assist METHOD OF INSTRUCTION: Individual instruction Written instruction - handouts Verbal instruction PATIENT / FAMILY RESPONSE: Performs skill independently: Wound care FOLLOW-UP PLAN: Follow up phone call. SUPPLEMENTAL MATERIAL: Homegoing instructions REFERRAL (RECOMMENDATION): None Normal [facility] SURGICAL PATHOLOGYon CASE REPORT Normal [facility] Comment on above: Order Comment: Speci men Type: TISSUE SPECIMENOrdering Facility: [facility] Address: [address] [place] [id number] Result Comment: Surg ical Pathology Report Case: [id number] Authorizing Provider: Radha Thrasher Collected: 10/10/2024 02:46 PM MD Shayla Ordering Location: Mammography Received: 10/10/2024 05:14 PM Pathologist: Karey Caballero MD Specimen: Breast, Right, Core Biopsy, LOQ clustered fine calcs, charly biopsy, top hat clip Performed By: #### S ####[facility] LABCLIA [id number] [address] [place] FINAL DIAGNOSIS Normal [facility] Comment on above: Order Comment: Speci men Type: TISSUE SPECIMENOrdering Facility: [facility] Address: [address] [place] [address] Result Comment: A. R ight breast, lower outer quadrant, normal biopsy with Top-Hat clip placement: - Breast tissue with usual ductal hyperplasia, stromal fibrosis, apocrine cysts, and microcalcifications within the glands. - Changes consistent with ruptured cyst. Performed By: #### S ####[facility] LABIA [id number] [address] FINAL PERFORMING LAB Normal [facility] Comment on above: Order Comment: Speci men Type: TISSUE SPECIMENOrdering Facility: [facility] Address: [address] [place] [address] Result Comment: Diag nostic interpretation performed at [facility], [address] [place] [address] CLIA# [id number] Airport Maintenance Chief: Kiko Souza M.D. Performed By: #### S ####[facility] LABIA [id number] [address] [place] GROSS DESCRIPTION Normal [facility] Comment on above: Order Comment: Speci men Type: TISSUE SPECIMENOrdering Facility: [facility] Address: [address] [place] [address] Result Comment: A. B reast, Right, Core Biopsy Received in formalin labeled as right breast core are multiple segments of cylindrical tissue into 3.7 x 2.0 x 0.2 cm, yellow and garcía-white and of a soft consistency. The specimen was removed from the patient at 14:46 10/10/2024. On the same day, the specimen was placed in formalin at 14:49. Totally submitted in formalin in two cassettes. JC October 10, 2024 8:59 PM Gross examination performed at [facility], [facility] [place] [address] Performed By: #### S ####[facility] LABCLIA [id number] [id number] [place] DBT Breast - right diagnosti c for implanton 09-19-2024 IMPRESSION: Calcifications in the right breast are suspicious for malignancy. Stereotactic biopsy is recommended. These are best seen on the CC view and inferior approach would likely be the most direct route for biopsy. Recommend scheduling patient on a prone stereo unit. Findings and recommendations were discussed with the patient. BI-RADS Category 4A: Suspicious - Low suspicion for malignancy RISK: Based on the Tyrer-Cuzick (TC) risk assessment model, this patient has a 6.7% lifetime risk of developing breast cancer, meaning they are at average risk for developing breast cancer. However, this is only an estimate based on available history provided on the patient's questionnaire. We encourage all patients to talk with their providers about these results, further recommendations for managing breast health, and appropriate supplemental screening options if the patient has dense breast tissue. Interpreting Radiologist: Sharmin Hernadez M.D. Electronically signed on: 09/19/2024 Digital Marketing Consultant: ROSCOE Transcribe Date/Time: Sep 19 2024 1:33P Dictated by: SHARMIN HERNADEZ MD This examination was interpreted and the report reviewed and electronically signed by: SHARMIN HERNADEZ MD on Sep 19 2024 2:29PM [facility] DIVISION OF RADIOLOGY * * *Final Report* * * DATE OF EXAM: Sep 19 2024 1:51PM [facility] 0629 - GINA ASHLEY PARKS RT / PROCEDURE REASON: Abnormal mammogram * * * * Physician Interpretation * * * * RESULT: [place] [id number] HISTORY: Patient is 74 years old and is seen for diagnostic evaluation of callback in the right breast. Patient states no personal history of breast cancer. Patient states no personal history of other cancers. COMPARISON STUDIES: The present examination has been compared to prior imaging studies dated 03/22/2018 (mammogram), 08/15/2019 (mammogram), 07/20/2021 (mammogram), 03/10/2023 (mammogram) and 08/27/2024 (mammogram). MAMMOGRAM TECHNIQUE: The study was acquired using full field digital technology and interpreted from soft copy. Digital Breast Tomosynthesis (DBT) images were obtained and used to assist in the interpretation of this examination. Computer-aided detection was utilized by the radiologist in the interpretation of this examination. MAMMOGRAM FINDINGS: The breast is heterogeneously dense, which may obscure small masses. There are clustered fine calcifications in the posterior depth lower outer quadrant of the right breast. DIVISION OF RADIOLOGY Provider, [facility] - 09/19/2024 * * *Final Report* * * DATE OF EXAM: Sep 19 2024 1:51PM [facility] 0629 - GINA ASHLEY PARKS RT / PROCEDURE REASON: Abnormal mammogram * * * * Physician Interpretation * * * * RESULT: [place] [address] HISTORY: Patient is 74 years old and is seen for diagnostic evaluation of callback in the right breast. Patient states no personal history of breast cancer. Patient states no personal history of other cancers. COMPARISON STUDIES: The present examination has been compared to prior imaging studies dated 03/22/2018 (mammogram), 08/15/2019 (mammogram), 07/20/2021 (mammogram), 03/10/2023 (mammogram) and 08/27/2024 (mammogram). MAMMOGRAM TECHNIQUE: The study was acquired using full field digital technology and interpreted from soft copy. Digital Breast Tomosynthesis (DBT) images were obtained and used to assist in the interpretation of this examination. Computer-aided detection was utilized by the radiologist in the interpretation of this examination. MAMMOGRAM FINDINGS: The breast is heterogeneously dense, which may obscure small masses. There are clustered fine calcifications in the posterior depth lower outer quadrant of the right breast. IMPRESSION IMPRESSION: Calcifications in the right breast are suspicious for malignancy. Stereotactic biopsy is recommended. These are best seen on the CC view and inferior approach would likely be the most direct route for biopsy. Recommend scheduling patient on a prone stereo unit. Findings and recommendations were discussed with the patient. BI-RADS Category 4A: Suspicious - Low suspicion for malignancy RISK: Based on the Tyrer-Cuzick (TC) risk assessment model, this patient has a 6.7% lifetime risk of developing breast cancer, meaning they are at average risk for developing breast cancer. However, this is only an estimate based on available history provided on the patient's questionnaire. We encourage all patients to talk with their providers about these results, further recommendations for managing breast health, and appropriate supplemental screening options if the patient has dense breast tissue. Interpreting Radiologist: Sharmin Hernadez M.D. Electronically signed on: 09/19/2024 Digital Marketing Consultant: ROSCOE Transcribe Date/Time: Sep 19 2024 1:33P Dictated by: SHARMIN HERNADEZ MD This examination was interpreted and the report reviewed and electronically signed by: SHARMIN HERNADEZ MD on Sep 19 2024 2:29PM EST [facility] Radiology Study observation (narrative) [facility] DBT Breast - right diagnosti c for implantOrdered By: [facility] Provider on 09-19-2024 [facility] GINA DIAG W CHARLY RTon 024 GINA DIAG W CHARLY RT * * *Final Report* * * DATE OF EXAM: Sep 19 2024 1:51PM [facility] 0629 - GINA DIAG W CHARLY RT / PROCEDURE REASON: Abnormal mammogram * * * * Physician Interpretation * * * * RESULT: [facility] SPECIALTY [place] [id number] HISTORY: Patient is 74 years old and is seen for diagnostic evaluation of callback in the right breast. Patient states no personal history of breast cancer. Patient states no personal history of other cancers. COMPARISON STUDIES: The present examination has been compared to prior imaging studies dated 03/22/2018 (mammogram), 08/15/2019 (mammogram), 07/20/2021 (mammogram), 03/10/2023 (mammogram) and 08/27/2024 (mammogram). MAMMOGRAM TECHNIQUE: The study was acquired using full field digital technology and interpreted from soft copy. Digital Breast Tomosynthesis (DBT) images were obtained and used to assist in the interpretation of this examination. Computer-aided detection was utilized by the radiologist in the interpretation of this examination. MAMMOGRAM FINDINGS: The breast is heterogeneously dense, which may obscure small masses. There are clustered fine calcifications in the posterior depth lower outer quadrant of the right breast. IMPRESSION: Calcifications in the right breast are suspicious for malignancy. Stereotactic biopsy is recommended. These are best seen on the CC view and inferior approach would likely be the most direct route for biopsy. Recommend scheduling patient on a prone stereo unit. Findings and recommendations were discussed with the patient. BI-RADS Category 4A: Suspicious - Low suspicion for malignancy RISK: Based on the Tyrer-Cuzick (TC) risk assessment model, this patient has a 6.7% lifetime risk of developing breast cancer, meaning they are at average risk for developing breast cancer. However, this is only an estimate based on available history provided on the patient's questionnaire. We encourage all patients to talk with their providers about these results, further recommendations for managing breast health, and appropriate supplemental screening options if the patient has dense breast tissue. Interpreting Radiologist: Sharmin Hernadez M.D. Electronically signed on: 09/19/2024 Digital Marketing Consultant: ROSCOE Transcribe Date/Time: Sep 19 2024 1:33P Dictated by: SHARMIN HERNADEZ MD This examination was interpreted and the report reviewed and electronically signed by: SHARMIN HERNADEZ MD on Sep 19 2024 2:29PM EST [id number] Normal [facility] Absolute lymphocyte countOrd ered By: Nicol Adkins on 10-21-2023 Lymphocytes Auto (Unsp spec) [#/Vol] 3.07 10*3/uL 0.83-4.51 [facility] Basophil percentageOrdered B y: Nicol Adkins on 10-21-2023 Basophils/100 WBC (Bld) 0.8 % 0-1 [facility] Bilirubin [Mass/Vol] 0.50 mg/dL 0.20-1.00 [facility] Comment on above: For patients on eltr ombopag therapy, use of Dimension Venus TBIL is not recommended. Chloride [Moles/Vol] 100 mmol/L 98-107 [facility] Cholesterol [Mass/Vol] 177 mg/dL <200 [facility] Comment on above: <200 mg/dL Desirable 200-240 mg/dL Borderline >240 mg/dL High Risk Eosinophils/100 WBC (Bld) 4.2 % 0-5 [facility] Glucose [Mass/Vol] 172 mg/dL 74-106 [facility] Comment on above: Fasting Glucose resu lt greater than or equal to 126 mg/dL suggests DIABETES MELLITUS per A.D.A. criteria. Neutrophils (Bld) [#/Vol] 6.3 10*3/uL 2.0-7.7 [facility] Neutrophils/100 WBC (Bld) 57.8 % 47-70 [facility] Potassium [Moles/Vol] 4.0 mmol/L 3.5-5.1 [facility] Protein [Mass/Vol] 7.4 g/dL 6.4-8.2 [facility] Sodium [Moles/Vol] 135 mmol/L 136-145 [facility] Triglyceride [Mass/Vol] 157 mg/dL <199 [facility] Comment on above: The drugs N-Acetylcy steine and Metamizole may falsely depress this assay.Serum Triglycerides Reference Interval Normal <150 mg/dL Borderline high 150 - 199 mg/dL High 200 - 499 mg/dL Very High > or = 500 mg/dL WBC (Bld) [#/Vol] 10.8 10*3/uL 4.4-11.0 [facility] Blood erythrocytes count (nu mber/volume)Ordered By: Nicol Adkins on 10-21-2023 RBC (Bld) [#/Vol] 4.37 10*6/uL 4.2-5.4 [facility] Blood hemoglobin measurement (mass/volume)Ordered By: Nicol Adkins on 10-21-2023 Hemoglobin (Bld) [Mass/Vol] 13.0 g/dL 12.0-15.0 [facility] Blood lymphocytes/100 leukoc ytesOrdered By: Nicol Adkins on 10-21-2023 Lymphocytes/100 WBC (Bld) 28.3 % 19-41 [facility] Blood monocytes/100 leukocyt esOrdered By: Nicol Adkins on 10-21-2023 Monocytes/100 WBC (Bld) 8.4 % 0-10 [facility] Blood platelet mean volumeOr dered By: Nicol Adkins on 10-21-2023 Platelet mean volume (Bld) [Entitic vol] 9.1 fL 6.2-12.0 [facility] Determination of erythrocyte mean corpuscular volume (MCV)Ordered By: Nicol Adkins on 10-21-2023 MCV (RBC) [Entitic vol] 89.0 fL 81-99 [facility] Direct bilirubinOrdered By: Nicol Adkins on 10-21-2023 Bilirubin.direct [Mass/Vol] 0.13 mg/dL 0.00-0.30 [facility] Hematocrit Auto (Bld) [Volum e fraction]Ordered By: Nicol Adkins on 10-21-2023 Hematocrit (Bld) [Volume fraction] 38.9 % 37-47 [facility] Laboratory - Chemistry and C hemistry - challengeOrdered By: Nicol Adkins on 10-21-2023 ALP [Catalytic activity/Vol] 77 U/L 45-117 [facility] ALT [Catalytic activity/Vol] 20 U/L 13-56 [facility] CO2 [Moles/Vol] 31.0 mmol/L 21.0-32.0 [facility] Globulin (S) [Mass/Vol] 3.9 g/dL 2.2-4.2 [facility] Natriuretic peptide B (Bld) [Mass/Vol] 49.1 pg/mL 0-100 [facility] Urea nitrogen/Creatinine [Mass ratio] 22.2 mg/mg 10-20 [facility] Laboratory - Hematology and Cell countsOrdered By: Nicol Adkins on 10-21-2023 Erythrocyte distribution width (RBC) [Entitic vol] 42.5 fL 35.1-43.9 [facility] Erythrocyte distribution width (RBC) [Ratio] 13.0 % 11.6-14.6 [facility] Immature granulocytes/100 WBC (Bld) 0.500 % 0.0-0.9 [facility] Comment on above: IG% - Immature Granu locytes (promyelocytes, myelocytes and metamyelocytes) > 1% indicates that a LEFT SHIFT is Present. MCH (RBC) [Entitic mass] 29.7 pg 27.0-32.0 [facility] Nucleated RBC/100 WBC (Bld) [Ratio] 0 % 0-5 [facility] Auto (RBC) [Mass/Vol]Or dered By: Nicol Adkins on 10-21-2023 MCHC (RBC) [Mass/Vol] 33.4 g/dL 32-36 [facility] No Panel InformationOrdered By: Nicol Adkins on 10-21-2023 Estimated GFR (MDRD) Amer 90 mL/min >60 [facility] Comment on above: GFR Calc Estimated GFR (MDRD) Non-Af Amer 74 mL/min >60 [facility] Comment on above: Non- GFR Calc Thyroid Stimulating Hormone (TSH) 1.15 uIU/mL 0.358-3.74 [facility] Platelets bldOrdered By: Larry Adkins on 10-21-2023 Platelets (Bld) [#/Vol] 252 10*3/uL 150-450 [facility] Serum or plasma albumin irina urement (mass/volume)Ordered By: Nicol Adkins on 10-21-2023 Albumin [Mass/Vol] 3.5 g/dL 3.2-5.0 [facility] Serum or plasma calcium irina urement (mass/volume)Ordered By: Nicol Adkins on 10-21-2023 Calcium [Mass/Vol] 9.0 mg/dL 8.5-10.1 [facility] Serum or plasma cholesterol in HDL measurement (mass/volume)Ordered By: Nicol Adkins on 10-21-2023 Cholesterol in HDL [Mass/Vol] 57 mg/dL >40 [facility] Comment on above: The drugs N-Acetylcy steine and Metamizole may falsely depress this assay. Reference Range HDL <40 mg/dL Low HDL Cholesterol HDL >or= 60 mg/dL High HDL Cholesterol Serum or plasma cholesterol in VLDL measurement (mass/volume)Ordered By: Nicol Adkins on 10-21-2023 Cholesterol in VLDL [Mass/Vol] 31 mg/dL 5-40 [facility] Serum or plasma creatinine m easurement (mass/volume)Ordered By: Nicol Adkins on 10-21-2023 Creatinine [Mass/Vol] 0.81 mg/dL 0.55-1.02 [facility] Comment on above: The validity of the calculated GFR & GFRAA in patients over 70 years has not been determined. Clinical correlation is essential. Serum or plasma low density lipoprotein (LDL) cholesterol measurement (mass/volume)Ordered By: Nicol Adkins on 10-21-2023 Cholesterol in LDL [Mass/Vol] 89 mg/dL 0-130 [facility] Serum or plasma urea nitroge n measurement (mass/volume)Ordered By: Nicol Adkins on 10-21-2023 Urea nitrogen [Mass/Vol] 18 mg/dL 7-18 [facility] Thin prep Papanicolaou smear with manual screeningOrdered By: Nicol Adkins on 10-21-2023 Thin prep Papanicolaou smear with manual screening 13 U/L 15-37 [facility] Thin prep Papanicolaou smear with manual screening 4 5-15 [facility] Basophil percentageOrdered B y: Ora Nam on 07-20-2023 Basophil percentage Not Reportable [facility] Basophil percentageOrdered B y: Nicol Adkins on 07-20-2023 Chloride [Moles/Vol] 98 mmol/L 98-107 [facility] Glucose [Mass/Vol] 173 mg/dL 74-106 [facility] Comment on above: Fasting Glucose resu lt greater than or equal to 126 mg/dL suggests DIABETES MELLITUS per A.D.A. criteria. Potassium [Moles/Vol] 4.0 mmol/L 3.5-5.1 [facility] Sodium [Moles/Vol] 134 mmol/L 136-145 [facility] Erythrocyte sedimentation ra teOrdered By: Ora Nam on 07-20-2023 ESR (Bld) [Velocity] 18 mm/h 0-30 [facility] Laboratory - Chemistry and C hemistry - challengeOrdered By: Nicol Adkins on 07-20-2023 CO2 [Moles/Vol] 29.0 mmol/L 21.0-32.0 [facility] Natriuretic peptide B (Bld) [Mass/Vol] 52.0 pg/mL 0-100 [facility] Urea nitrogen/Creatinine [Mass ratio] 24.6 mg/mg 10-20 [facility] No Panel InformationOrdered By: Ora Nam on 07-20-2023 Anti-Nuclear Antibody Screen Negative Negative [facility] Comment on above: Performed at: [address] [id number] Director: Eugenio Brown PhD, Phone: [phone] Centromere B Antibody Not Reportable [facility] CORE BLOWER Antibody Not Reportable [facility] No Panel InformationOrdered By: Nicol Adkins on 07-20-2023 Estimated GFR (MDRD) Amer 80 mL/min >60 [facility] Comment on above: GFR Calc Estimated GFR (MDRD) Non-Af Amer 66 mL/min >60 [facility] Comment on above: Non- GFR Calc Serum DNA double strand anti body assay (units/volume)Ordered By: Ora Nam on 07-20-2023 DNA double strand Ab Qn (S) Not Reportable [facility] Serum Hedy-1 antibody assay (u nits/volume)Ordered By: Ora Nam on 07-20-2023 Hedy-1 extractable nuclear Ab Qn (S) Not Reportable [facility] Serum Scl-70 extractable nuc lear antibody assay (units/volume)Ordered By: Ora Nam on 07-20-2023 SCL-70 extractable nuclear Ab Qn (S) Not Reportable [facility] Serum Ahuja extractable nucl ear antibody detectionOrdered By: Ora Nam on 07-20-2023 Ahuja extractable nuclear Ab Ql (S) Not Reportable [facility] Serum or plasma C reactive p rotein measurement (mass/volume)Ordered By: Ora Nam on 07-20-2023 CRP [Mass/Vol] 3.22 mg/L 0.0-3.0 [facility] Comment on above: C-Reactive Protein ( CRP) provides useful information for thediagnosis, therapy and monitoring of inflammatory processesand associated diseases. For the evaluation of Relative Riskfor Cardiovascular Disease, a High Sensitivity CRP (HSCRP)should be ordered. Serum or plasma calcium irina urement (mass/volume)Ordered By: Nicol Adkins on 07-20-2023 Calcium [Mass/Vol] 9.1 mg/dL 8.5-10.1 [facility] Serum or plasma creatinine m easurement (mass/volume)Ordered By: Nicol Adkins on 07-20-2023 Creatinine [Mass/Vol] 0.89 mg/dL 0.55-1.02 [facility] Comment on above: The validity of the calculated GFR & GFRAA in patients over 70 years has not been determined. Clinical correlation is essential. Serum or plasma urea nitroge n measurement (mass/volume)Ordered By: Nicol Adkins on 07-20-2023 Urea nitrogen [Mass/Vol] 22 mg/dL 7-18 [facility] Thin prep Papanicolaou smear with manual screeningOrdered By: Nicol Adkins on 07-20-2023 Thin prep Papanicolaou smear with manual screening 7 5-15 [facility] Laboratory - Hematology and Cell countson 07-07-2023 HbA1c (Bld) [Mass fraction] 6.3 % 4.2-6.3 [facility] Absolute lymphocyte countOrd ered By: Wilfred Leggett on 07-06-2023 Lymphocytes Auto (Unsp spec) [#/Vol] 2.66 10*3/uL 0.83-4.51 [facility] Basophil percentageOrdered B y: Wilfred Leggett on 07-06-2023 Basophils/100 WBC (Bld) 0.7 % 0-1 [facility] Bilirubin [Mass/Vol] 0.50 mg/dL 0.20-1.00 [facility] Comment on above: For patients on eltr ombopag therapy, use of Dimension Venus TBIL is not recommended. Chloride [Moles/Vol] 100 mmol/L 98-107 [facility] Cholesterol [Mass/Vol] 246 mg/dL <200 [facility] Comment on above: <200 mg/dL Desirable 200-240 mg/dL Borderline >240 mg/dL High Risk Eosinophils/100 WBC (Bld) 2.7 % 0-5 [facility] Glucose [Mass/Vol] 102 mg/dL 74-106 [facility] Comment on above: Fasting Glucose resu lt from 100 to 125 mg/dL suggests IMPAIRED HOMEOSTASIS per A.D.A. criteria. Neutrophils (Bld) [#/Vol] 4.9 10*3/uL 2.0-7.7 [facility] Neutrophils/100 WBC (Bld) 56.6 % 47-70 [facility] Potassium [Moles/Vol] 3.7 mmol/L 3.5-5.1 [facility] Protein [Mass/Vol] 7.7 g/dL 6.4-8.2 [facility] [facility] Sodium [Moles/Vol] 136 mmol/L 136-145 [facility] Triglyceride [Mass/Vol] 171 mg/dL <199 [facility] Comment on above: The drugs N-Acetylcy steine and Metamizole may falsely depress this assay.Serum Triglycerides Reference Interval Normal <150 mg/dL Borderline high 150 - 199 mg/dL High 200 - 499 mg/dL Very High > or = 500 mg/dL WBC (Bld) [#/Vol] 8.6 10*3/uL 4.4-11.0 [facility] Blood erythrocytes count (nu mber/volume)Ordered By: Wilfred Leggett on 07-06-2023 RBC (Bld) [#/Vol] 4.73 10*6/uL 4.2-5.4 [facility] Blood hemoglobin measurement (mass/volume)Ordered By: Wilfred Leggett on 07-06-2023 Hemoglobin (Bld) [Mass/Vol] 14.5 g/dL 12.0-15.0 [facility] Blood lymphocytes/100 leukoc ytesOrdered By: Wilfred Leggett on 07-06-2023 Lymphocytes/100 WBC (Bld) 31.0 % 19-41 [facility] Blood monocytes/100 leukocyt esOrdered By: Wilfred Leggett on 07-06-2023 Monocytes/100 WBC (Bld) 8.7 % 0-10 [facility] Blood platelet mean volumeOr dered By: Wilfred Leggett on 07-06-2023 Platelet mean volume (Bld) [Entitic vol] 9.6 fL 6.2-12.0 [facility] Determination of erythrocyte mean corpuscular volume (MCV)Ordered By: Wilfred Leggett on 07-06-2023 MCV (RBC) [Entitic vol] 88.8 fL 81-99 [facility] Hematocrit Auto (Bld) [Volum e fraction]Ordered By: Wilfred Leggett on 07-06-2023 Hematocrit (Bld) [Volume fraction] 42.0 % 37-47 [facility] Laboratory - Chemistry and C hemistry - challengeOrdered By: Wilfred Leggett on 07-06-2023 ALP [Catalytic activity/Vol] 76 U/L 45-117 [facility] ALT [Catalytic activity/Vol] 23 U/L 13-56 [facility] CO2 [Moles/Vol] 30.0 mmol/L 21.0-32.0 [facility] Cobalamin (Vitamin B12) [Mass/Vol] 425 pg/mL 211-911 [facility] Free T4 [Mass/Vol] 1.61 ng/dL 0.76-1.46 [facility] Globulin (S) [Mass/Vol] 4.1 g/dL 2.2-4.2 [facility] Urea nitrogen/Creatinine [Mass ratio] 23.7 mg/mg 10-20 [facility] Laboratory - Hematology and Cell countsOrdered By: Wilfred Leggett on 07-06-2023 Erythrocyte distribution width (RBC) [Entitic vol] 43.1 fL 35.1-43.9 [facility] Erythrocyte distribution width (RBC) [Ratio] 13.2 % 11.6-14.6 [facility] Immature granulocytes/100 WBC (Bld) 0.300 % 0.0-0.9 [facility] Comment on above: IG% - Immature Granu locytes (promyelocytes, myelocytes and metamyelocytes) > 1% indicates that a LEFT SHIFT is Present. MCH (RBC) [Entitic mass] 30.7 pg 27.0-32.0 [facility] Nucleated RBC/100 WBC (Bld) [Ratio] 0 % 0-5 [facility] MCHC Auto (RBC) [Mass/Vol]Or dered By: Wilfred Leggett on 07-06-2023 MCHC (RBC) [Mass/Vol] 34.5 g/dL 32-36 [facility] No Panel InformationOrdered By: Wilfred Leggett on 07-06-2023 Estimated GFR (MDRD) Amer 111 mL/min >60 [facility] Comment on above: GFR Calc Estimated GFR (MDRD) Non-Af Amer 91 mL/min >60 [facility] Comment on above: Non- GFR Calc Thyroglobulin Antibody < 1.0 IU/mL 0.0-0.9 [facility] Comment on above: Thyroglobulin Antibo dy measured by Camille CoulterMethodology Thyroglobulin Level 0.3 ng/mL 1.5-38.5 [facility] Comment on above: According to the [facility] [employer],the reference interval for Thyroglobulin (TG) should berelated to euthyroid patients and not for patients whounderwent thyroidectomy. TG reference intervals for thesepatients depend on the residual mass of the thyroid tissueleft after surgery. Establishing a post-operative baselineis recommended. The assay limit of quantitation is 0.1ng/mLThyroglobulin measured by Camille Alban ImmunometricAssayPerformed at: [facility] [id number] [place], [place] [id number] Director: Eugenio Brown PhD, Phone: [phone] Thyroid Stimulating Hormone (TSH) 0.81 uIU/mL 0.358-3.74 [facility] Urine Microalbumin/Creatini ne Ratio TNP [facility] Comment on above: Test not performed Vitamin D 25-Hydroxy 69.0 ng/mL [facility] Comment on above: Vitamin D 25(OH) Sta tus Range Deficiency <20 ng/mL (50nmol/L) Insufficiency 20 - 30 ng/mL (50 - 75 nmol/L) Sufficiency 30 - 100 ng/mL (75 - 250 nmol/L) Toxicity >100 ng/mL (>250 nmol/L) Platelets bldOrdered By: Teofilo Leggett on 07-06-2023 Platelets (Bld) [#/Vol] 287 10*3/uL 150-450 [facility] Serum or plasma albumin irina urement (mass/volume)Ordered By: Wilfred Leggett on 07-06-2023 Albumin [Mass/Vol] 3.6 g/dL 3.2-5.0 [facility] Serum or plasma albumin/glob ulin mass ratioOrdered By: Wilfred Leggett on 07-06-2023 Albumin/Globulin [Mass ratio] 0.9 {ratio} 0.9-2.4 [facility] Serum or plasma calcium irina urement (mass/volume)Ordered By: Wilfred Leggett on 07-06-2023 Calcium [Mass/Vol] 9.1 mg/dL 8.5-10.1 [facility] Serum or plasma cholesterol in HDL measurement (mass/volume)Ordered By: Wilfred Leggett on 07-06-2023 Cholesterol in HDL [Mass/Vol] 57 mg/dL >40 [facility] Comment on above: The drugs N-Acetylcy steine and Metamizole may falsely depress this assay. Reference Range HDL <40 mg/dL Low HDL Cholesterol HDL >or= 60 mg/dL High HDL Cholesterol Serum or plasma cholesterol in VLDL measurement (mass/volume)Ordered By: Wilfred Leggett on 07-06-2023 Cholesterol in VLDL [Mass/Vol] 34 mg/dL 5-40 [facility] Serum or plasma creatinine m easurement (mass/volume)Ordered By: Wilfred Leggett on 07-06-2023 Creatinine [Mass/Vol] 0.67 mg/dL 0.55-1.02 [facility] Comment on above: The validity of the calculated GFR & GFRAA in patients over 70 years has not been determined. Clinical correlation is essential. Serum or plasma low density lipoprotein (LDL) cholesterol measurement (mass/volume)Ordered By: Wilfred Leggett on 07-06-2023 Cholesterol in LDL [Mass/Vol] 155 mg/dL 0-130 [facility] Serum or plasma urea nitroge n measurement (mass/volume)Ordered By: Wilfred Leggett on 07-06-2023 Urea nitrogen [Mass/Vol] 16 mg/dL 7-18 [facility] Thin prep Papanicolaou smear with manual screeningOrdered By: Wilfred Leggett on 07-06-2023 Thin prep Papanicolaou smear with manual screening 15 U/L 15-37 [facility] Thin prep Papanicolaou smear with manual screening 6 5-15 [facility] Thin prep Papanicolaou smear with manual screening < 5.0 mg/L NO RANGE EST. [facility] Urine creatinine measurement (mass/volume)Ordered By: Wilfred Leggett on 07-06-2023 Creatinine (U) [Mass/Vol] 73.30 mg/dL NO RANGE EST. [facility] No Panel InformationOrdered By: Wilfred Leggett on 05-02-2023 Thyroglobulin Antibody < 1.0 IU/mL 0.0-0.9 [facility] Comment on above: Thyroglobulin Antibo dy measured by Camille CoulterMethodology Thyroglobulin Level 0.2 ng/mL 1.5-38.5 [facility] Comment on above: According to the [facility] [employer] of Clinical [employer],the reference interval for Thyroglobulin (TG) should berelated to euthyroid patients and not for patients whounderwent thyroidectomy. TG reference intervals for thesepatients depend on the residual mass of the thyroid tissueleft after surgery. Establishing a post-operative baselineis recommended. The assay limit of quantitation is 0.1ng/mLThyroglobulin measured by Camille Alban ImmunometricAssayPerformed at: - [facility] [id number] Director: Eugenio Brown PhD, Phone: [phone] Thyroid Stimulating Hormone (TSH) 0.42 uIU/mL 0.358-3.74 [facility] Absolute lymphocyte countOrd ered By: Nicol Adkins on 03-21-2023 Lymphocytes Auto (Unsp spec) [#/Vol] 2.28 10*3/uL 0.83-4.51 [facility] Basophil percentageOrdered B y: Nicol Adkins on 03-21-2023 Basophils/100 WBC (Bld) 0.8 % 0-1 [facility] Chloride [Moles/Vol] 100 mmol/L 98-107 [facility] Eosinophils/100 WBC (Bld) 4.2 % 0-5 [facility] Glucose [Mass/Vol] 147 mg/dL 74-106 [facility] Comment on above: Fasting Glucose resu lt greater than or equal to 126 mg/dL suggests DIABETES MELLITUS per A.D.A. criteria. Neutrophils (Bld) [#/Vol] 6.7 10*3/uL 2.0-7.7 [facility] Neutrophils/100 WBC (Bld) 63.8 % 47-70 [facility] Potassium [Moles/Vol] 3.9 mmol/L 3.5-5.1 [facility] Sodium [Moles/Vol] 137 mmol/L 136-145 [facility] WBC (Bld) [#/Vol] 10.5 10*3/uL 4.4-11.0 [facility] Blood erythrocytes count (nu mber/volume)Ordered By: Nicol Adkins on 03-21-2023 RBC (Bld) [#/Vol] 4.66 10*6/uL 4.2-5.4 [facility] Blood hemoglobin measurement (mass/volume)Ordered By: Nicol Adkins on 03-21-2023 Hemoglobin (Bld) [Mass/Vol] 13.9 g/dL 12.0-15.0 [facility] Blood lymphocytes/100 leukoc ytesOrdered By: Nicol Adkins on 03-21-2023 Lymphocytes/100 WBC (Bld) 21.8 % 19-41 [facility] Blood monocytes/100 leukocyt esOrdered By: Nicol Adkins on 03-21-2023 Monocytes/100 WBC (Bld) 9.0 % 0-10 [facility] Blood platelet mean volumeOr dered By: Nicol Adkins on 03-21-2023 Platelet mean volume (Bld) [Entitic vol] 9.9 fL 6.2-12.0 [facility] Determination of erythrocyte mean corpuscular volume (MCV)Ordered By: Nicol Adkins on 03-21-2023 MCV (RBC) [Entitic vol] 90.6 fL 81-99 [facility] Hematocrit Auto (Bld) [Volum e fraction]Ordered By: Nicol Adkins on 03-21-2023 Hematocrit (Bld) [Volume fraction] 42.2 % 37-47 [facility] - Chemistry and C hemistry - challengeOrdered By: Nicol Adkins on 03-21-2023 CO2 [Moles/Vol] 31.0 mmol/L 21.0-32.0 [facility] Urea nitrogen/Creatinine [Mass ratio] 30.8 mg/mg 10-20 [facility] - Hematology and Cell countsOrdered By: Nicol Adkins on 03-21-2023 Erythrocyte distribution width (RBC) [Entitic vol] 42.9 fL 35.1-43.9 [facility] Erythrocyte distribution width (RBC) [Ratio] 13.1 % 11.6-14.6 [facility] Immature granulocytes/100 WBC (Bld) 0.400 % 0.0-0.9 [facility] Comment on above: IG% - Immature Granu locytes (promyelocytes, myelocytes and metamyelocytes) > 1% indicates that a LEFT SHIFT is Present. MCH (RBC) [Entitic mass] 29.8 pg 27.0-32.0 [facility] Nucleated RBC/100 WBC (Bld) [Ratio] 0 % 0-5 [facility] MCHC Auto (RBC) [Mass/Vol]Or dered By: Nicol Adkins on 03-21-2023 MCHC (RBC) [Mass/Vol] 32.9 g/dL 32-36 [facility] No Panel InformationOrdered By: Nicol Adkins on 03-21-2023 Estimated GFR (MDRD) Amer 109 mL/min >60 [facility] Comment on above: GFR Calc Estimated GFR (MDRD) Non-Af Amer 90 mL/min >60 [facility] Comment on above: Non- GFR Calc Platelets bldOrdered By: Larry Adkins on 03-21-2023 Platelets (Bld) [#/Vol] 296 10*3/uL 150-450 [facility] Serum or plasma calcium irina urement (mass/volume)Ordered By: Nicol Adkins on 03-21-2023 Calcium [Mass/Vol] 9.1 mg/dL 8.5-10.1 [facility] Serum or plasma creatinine m easurement (mass/volume)Ordered By: Nicol Adkins on 03-21-2023 Creatinine [Mass/Vol] 0.68 mg/dL 0.55-1.02 [facility] Comment on above: The validity of the calculated GFR & GFRAA in patients over 70 years has not been determined. Clinical correlation is essential. Serum or plasma urea nitroge n measurement (mass/volume)Ordered By: Nicol Adkins on 03-21-2023 Urea nitrogen [Mass/Vol] 21 mg/dL 7-18 [facility] Thin prep Papanicolaou smear with manual screeningOrdered By: Nicol Adkins on 03-21-2023 Thin prep Papanicolaou smear with manual screening 6 5-15 [facility] GINA SCREENING W CANDELARIOOon 03-10 [facility] Absolute lymphocyte countOrd ered By: Dr. Nam on 02-01-2023 Lymphocytes Auto (Unsp spec) [#/Vol] 2.56 10*3/uL 0.83-4.51 [facility] Basophil percentageOrdered B y: Dr. Nam on 02-01-2023 Basophils/100 WBC (Bld) 0.6 % 0-1 [facility] Bilirubin [Mass/Vol] 0.50 mg/dL 0.20-1.00 [facility] Comment on above: For patients on eltr ombopag therapy, use of Dimension Venus TBIL is not recommended. Chloride [Moles/Vol] 100 mmol/L 98-107 [facility] Cholesterol [Mass/Vol] 238 mg/dL <200 [facility] Comment on above: <200 mg/dL Desirable 200-240 mg/dL Borderline >240 mg/dL High Risk Eosinophils/100 WBC (Bld) 3.7 % 0-5 [facility] Glucose [Mass/Vol] 155 mg/dL 74-106 [facility] Comment on above: Fasting Glucose resu lt greater than or equal to 126 mg/dL suggests DIABETES MELLITUS per A.D.A. criteria. Neutrophils (Bld) [#/Vol] 5.1 10*3/uL 2.0-7.7 [facility] Neutrophils/100 WBC (Bld) 57.6 % 47-70 [facility] Potassium [Moles/Vol] 3.8 mmol/L 3.5-5.1 [facility] Protein [Mass/Vol] 7.9 g/dL 6.4-8.2 [facility] Sodium [Moles/Vol] 135 mmol/L 136-145 [facility] Triglyceride [Mass/Vol] 176 mg/dL <199 [facility] Comment on above: The drugs N-Acetylcy steine and Metamizole may falsely depress this assay.Serum Triglycerides Reference Interval Normal <150 mg/dL Borderline high 150 - 199 mg/dL High 200 - 499 mg/dL Very High > or = 500 mg/dL WBC (Bld) [#/Vol] 8.9 10*3/uL 4.4-11.0 [facility] Blood erythrocytes count (nu mber/volume)Ordered By: Dr. Nam on 02-01-2023 RBC (Bld) [#/Vol] 4.49 10*6/uL 4.2-5.4 [facility] Blood hemoglobin measurement (mass/volume)Ordered By: Dr. Nam on 02-01-2023 Hemoglobin (Bld) [Mass/Vol] 13.5 g/dL 12.0-15.0 [facility] Blood lymphocytes/100 leukoc ytesOrdered By: Dr. Nam on 02-01-2023 Lymphocytes/100 WBC (Bld) 28.8 % 19-41 [facility] Blood monocytes/100 leukocyt esOrdered By: Dr. Nam on 02-01-2023 Monocytes/100 WBC (Bld) 9.0 % 0-10 [facility] Blood platelet mean volumeOr dered By: Dr. Nam on 02-01-2023 Platelet mean volume (Bld) [Entitic vol] 10.0 fL 6.2-12.0 [facility] Determination of erythrocyte mean corpuscular volume (MCV)Ordered By: Dr. Nam on 02-01-2023 MCV (RBC) [Entitic vol] 88.9 fL 81-99 [facility] Hematocrit Auto (Bld) [Volum e fraction]Ordered By: Dr. Nam on 02-01-2023 Hematocrit (Bld) [Volume fraction] 39.9 % 37-47 [facility] - Chemistry and C hemistry - challengeOrdered By: Dr. Nam on 02-01-2023 ALP [Catalytic activity/Vol] 74 U/L 45-117 [facility] ALT [Catalytic activity/Vol] 28 U/L 13-56 [facility] CO2 [Moles/Vol] 27.0 mmol/L 21.0-32.0 [facility] Free T4 [Mass/Vol] 1.56 ng/dL 0.76-1.46 [facility] Globulin (S) [Mass/Vol] 4.3 g/dL 2.2-4.2 [facility] Urea nitrogen/Creatinine [Mass ratio] 22.9 mg/mg 10-20 [facility] - Hematology and Cell countsOrdered By: Dr. Nam on 02-01-2023 Erythrocyte distribution width (RBC) [Entitic vol] 44.4 fL 35.1-43.9 [facility] Erythrocyte distribution width (RBC) [Ratio] 13.7 % 11.6-14.6 [facility] Immature granulocytes/100 WBC (Bld) 0.300 % 0.0-0.9 [facility] Comment on above: IG% - Immature Granu locytes (promyelocytes, myelocytes and metamyelocytes) > 1% indicates that a LEFT SHIFT is Present. MCH (RBC) [Entitic mass] 30.1 pg 27.0-32.0 [facility] Nucleated RBC/100 WBC (Bld) [Ratio] 0 % 0-5 [facility] MCHC Auto (RBC) [Mass/Vol]Or dered By: Dr. Nam on 02-01-2023 MCHC (RBC) [Mass/Vol] 33.8 g/dL 32-36 [facility] No Panel InformationOrdered By: Dr. Nam on 02-01-2023 Estimated GFR (MDRD) Amer 87 mL/min >60 [facility] Comment on above: GFR Calc Estimated GFR (MDRD) Non-Af Amer 72 mL/min >60 [facility] Comment on above: Non- GFR Calc Free Triiodothyronine (T3) pg/dL 2.2 pg/mL 2.18-3.98 [facility] Thyroid Stimulating Hormone (TSH) 0.93 uIU/mL 0.358-3.74 [facility] Vitamin D 25-Hydroxy 74.4 ng/mL [facility] Comment on above: Vitamin D 25(OH) Sta tus Range Deficiency <20 ng/mL (50nmol/L) Insufficiency 20 - 30 ng/mL (50 - 75 nmol/L) Sufficiency 30 - 100 ng/mL (75 - 250 nmol/L) Toxicity >100 ng/mL (>250 nmol/L) Platelets bldOrdered By: Dr. Nam on 02-01-2023 Platelets (Bld) [#/Vol] 265 10*3/uL 150-450 [facility] Serum or plasma albumin irina urement (mass/volume)Ordered By: Dr. Nam on 02-01-2023 Albumin [Mass/Vol] 3.6 g/dL 3.2-5.0 [facility] Serum or plasma albumin/glob ulin mass ratioOrdered By: Dr. Nam on 02-01-2023 Albumin/Globulin [Mass ratio] 0.8 {ratio} 0.9-2.4 [facility] Serum or plasma calcium irina urement (mass/volume)Ordered By: Dr. Nam on 02-01-2023 Calcium [Mass/Vol] 9.2 mg/dL 8.5-10.1 [facility] Serum or plasma cholesterol in HDL measurement (mass/volume)Ordered By: Dr. Nam on 02-01-2023 Cholesterol in HDL [Mass/Vol] 51 mg/dL >40 [facility] Comment on above: The drugs N-Acetylcy steine and Metamizole may falsely depress this assay. Reference Range HDL <40 mg/dL Low HDL Cholesterol HDL >or= 60 mg/dL High HDL Cholesterol Serum or plasma cholesterol in VLDL measurement (mass/volume)Ordered By: Dr. Nam on 02-01-2023 Cholesterol in VLDL [Mass/Vol] 35 mg/dL 5-40 [facility] Serum or plasma creatinine m easurement (mass/volume)Ordered By: Dr. Nam on 02-01-2023 Creatinine [Mass/Vol] 0.83 mg/dL 0.55-1.02 [facility] Comment on above: The validity of the calculated GFR & GFRAA in patients over 70 years has not been determined. Clinical correlation is essential. Serum or plasma low density lipoprotein (LDL) cholesterol measurement (mass/volume)Ordered By: Dr. Nam on 02-01-2023 Cholesterol in LDL [Mass/Vol] 152 mg/dL 0-130 [facility] Serum or plasma urea nitroge n measurement (mass/volume)Ordered By: Dr. Nam on 02-01-2023 Urea nitrogen [Mass/Vol] 19 mg/dL 7-18 [facility] Thin prep Papanicolaou smear with manual screeningOrdered By: Dr. Nam on 02-01-2023 Thin prep Papanicolaou smear with manual screening 15 U/L 15-37 [facility] Thin prep Papanicolaou smear with manual screening 8 5-15 [facility] Whole blood hemoglobin A1c/t otal hemoglobin ratio (mass fraction)Ordered By: Dr. Nam on 02-01-2023 HbA1c (Bld) [Mass fraction] 6.5 % 3.8-5.6 [facility] Comment on above: Normal < 5.7 % Predi abetic 5.7 - 6.4 % Diabetic >or= 6.5 % Please note range changes. Absolute lymphocyte countOrd ered By: Dr. Carr on 12-12-2022 Lymphocytes Auto (Unsp spec) [#/Vol] 0.85 10*3/uL 0.83-4.51 [facility] Basophil percentageOrdered B y: Dr. Carr on 12-12-2022 Basophils/100 WBC (Bld) 0.5 % 0-1 [facility] Chloride [Moles/Vol] 96 mmol/L 98-107 [facility] Eosinophils/100 WBC (Bld) 0.9 % 0-5 [facility] Glucose [Mass/Vol] 175 mg/dL 74-106 [facility] Comment on above: Fasting Glucose resu lt greater than or equal to 126 mg/dL suggests DIABETES MELLITUS per A.D.A. criteria. Neutrophils (Bld) [#/Vol] 6.3 10*3/uL 2.0-7.7 [facility] Neutrophils/100 WBC (Bld) 76.7 % 47-70 [facility] Potassium [Moles/Vol] 3.7 mmol/L 3.5-5.1 [facility] Sodium [Moles/Vol] 133 mmol/L 136-145 [facility] WBC (Bld) [#/Vol] 8.2 10*3/uL 4.4-11.0 [facility] Blood erythrocytes count (nu mber/volume)Ordered By: Dr. Carr on 12-12-2022 RBC (Bld) [#/Vol] 4.51 10*6/uL 4.2-5.4 [facility] Blood hemoglobin measurement (mass/volume)Ordered By: Dr. Carr on 12-12-2022 Hemoglobin (Bld) [Mass/Vol] 13.6 g/dL 12.0-15.0 [facility] Blood lymphocytes/100 leukoc ytesOrdered By: Dr. Carr on 12-12-2022 Lymphocytes/100 WBC (Bld) 10.3 % 19-41 [facility] Blood monocytes/100 leukocyt esOrdered By: Dr. Carr on 12-12-2022 Monocytes/100 WBC (Bld) 11.2 % 0-10 [facility] Blood platelet mean volumeOr dered By: Dr. Carr on 12-12-2022 Platelet mean volume (Bld) [Entitic vol] 9.4 fL 6.2-12.0 [facility] Determination of erythrocyte mean corpuscular volume (MCV)Ordered By: Dr. Carr on 12-12-2022 MCV (RBC) [Entitic vol] 88.5 fL 81-99 [facility] Hematocrit Auto (Bld) [Volum e fraction]Ordered By: Dr. Carr on 12-12-2022 Hematocrit (Bld) [Volume fraction] 39.9 % 37-47 [facility] - Chemistry and C hemistry - challengeOrdered By: Dr. Carr on 12-12-2022 CO2 [Moles/Vol] 30.0 mmol/L 21.0-32.0 [facility] Urea nitrogen/Creatinine [Mass ratio] 14.6 mg/mg 10-20 [facility] - Hematology and Cell countsOrdered By: Dr. Carr on 12-12-2022 Erythrocyte distribution width (RBC) [Entitic vol] 44.2 fL 35.1-43.9 [facility] Erythrocyte distribution width (RBC) [Ratio] 13.4 % 11.6-14.6 [facility] Immature granulocytes/100 WBC (Bld) 0.400 % 0.0-0.9 [facility] Comment on above: IG% - Immature Granu locytes (promyelocytes, myelocytes and metamyelocytes) > 1% indicates that a LEFT SHIFT is Present. MCH (RBC) [Entitic mass] 30.2 pg 27.0-32.0 [facility] Nucleated RBC/100 WBC (Bld) [Ratio] 0 % 0-5 [facility] MCHC Auto (RBC) [Mass/Vol]Or dered By: Dr. Carr on 12-12-2022 MCHC (RBC) [Mass/Vol] 34.1 g/dL 32-36 [facility] No Panel InformationOrdered By: Dr. Carr on 12-12-2022 Estimated Creatinine Clearance Calc 49.77 ml/min [facility] Estimated GFR (MDRD) Amer 88 mL/min >60 [facility] Comment on above: GFR Calc Estimated GFR (MDRD) Non-Af Amer 73 mL/min >60 [facility] Comment on above: Non- GFR Calc Platelets bldOrdered By: Dr. Carr on 12-12-2022 Platelets (Bld) [#/Vol] 194 10*3/uL 150-450 [facility] Serum or plasma calcium irina urement (mass/volume)Ordered By: Dr. Carr on 12-12-2022 Calcium [Mass/Vol] 8.9 mg/dL 8.5-10.1 [facility] Serum or plasma creatinine m easurement (mass/volume)Ordered By: Dr. Carr on 12-12-2022 Creatinine [Mass/Vol] 0.82 mg/dL 0.55-1.02 [facility] Comment on above: The validity of the calculated GFR & GFRAA in patients over 70 years has not been determined. Clinical correlation is essential. Serum or plasma urea nitroge n measurement (mass/volume)Ordered By: Dr. Carr on 12-12-2022 Urea nitrogen [Mass/Vol] 12 mg/dL 7-18 [facility] Thin prep Papanicolaou smear with manual screeningOrdered By: Dr. Carr on 12-12-2022 Thin prep Papanicolaou smear with manual screening 7 5-15 [facility] - Hematology and Cell countson 10-04-2022 HbA1c (Bld) [Mass fraction] 6.7 % [facility] Glucose Glucometer (dC) [M ass/Vol]Ordered By: Dr. Sawyer on 09-21-2022 Glucose [Mass/Vol] 121 mg/dL 74-106 [facility] Comment on above: MANAGEMENT OF PATIEN T CARE PER NURSING PROTOCOL No Panel InformationOrdered By: Dr. Sawyer on 09-20-2022 Activated Clotting Time 132 sec 74-137 [facility] Basophil percentageOrdered B y: Dr. Sawyer on 09-10-2022 Chloride [Moles/Vol] 102 mmol/L 98-107 [facility] Glucose [Mass/Vol] 156 mg/dL 74-106 [facility] Comment on above: Fasting Glucose resu lt greater than or equal to 126 mg/dL suggests DIABETES MELLITUS per A.D.A. criteria. Potassium [Moles/Vol] 3.7 mmol/L 3.5-5.1 [facility] Sodium [Moles/Vol] 139 mmol/L 136-145 [facility] WBC (Bld) [#/Vol] 8.7 10*3/uL 4.4-11.0 [facility] Blood erythrocytes count (nu mber/volume)Ordered By: Dr. Sawyer on 09-10-2022 RBC (Bld) [#/Vol] 4.57 10*6/uL 4.2-5.4 [facility] Blood hemoglobin measurement (mass/volume)Ordered By: Dr. Sawyer on 09-10-2022 Hemoglobin (Bld) [Mass/Vol] 14.1 g/dL 12.0-15.0 [facility] Blood platelet mean volumeOr dered By: Dr. Sawyer on 09-10-2022 Platelet mean volume (Bld) [Entitic vol] 9.3 fL 6.2-12.0 [facility] Determination of erythrocyte mean corpuscular volume (MCV)Ordered By: Dr. Sawyer on 09-10-2022 MCV (RBC) [Entitic vol] 88.2 fL 81-99 [facility] Hematocrit Auto (Bld) [Volum e fraction]Ordered By: Dr. Sawyer on 09-10-2022 Hematocrit (Bld) [Volume fraction] 40.3 % 37-47 [facility] - Chemistry and C hemistry - challengeOrdered By: Dr. Sawyer on 09-10-2022 CO2 [Moles/Vol] 31.0 mmol/L 21.0-32.0 [facility] Urea nitrogen/Creatinine [Mass ratio] 22.8 mg/mg 10-20 [facility] - Hematology and Cell countsOrdered By: Dr. Sawyer on 09-10-2022 Erythrocyte distribution width (RBC) [Entitic vol] 41.7 fL 35.1-43.9 [facility] Erythrocyte distribution width (RBC) [Ratio] 13.0 % 11.6-14.6 [facility] MCH (RBC) [Entitic mass] 30.9 pg 27.0-32.0 [facility] MCHC Auto (RBC) [Mass/Vol]Or dered By: Dr. Sawyer on 09-10-2022 MCHC (RBC) [Mass/Vol] 35.0 g/dL 32-36 [facility] No Panel InformationOrdered By: Dr. Sawyer on 09-10-2022 Estimated GFR (MDRD) Amer 106 mL/min >60 [facility] Comment on above: GFR Calc Estimated GFR (MDRD) Non-Af Amer 87 mL/min >60 [facility] Comment on above: Non- GFR Calc Platelets bldOrdered By: Dr. Sawyer on 09-10-2022 Platelets (Bld) [#/Vol] 270 10*3/uL 150-450 [facility] Serum or plasma calcium irina urement (mass/volume)Ordered By: Dr. Sawyer on 09-10-2022 Calcium [Mass/Vol] 9.3 mg/dL 8.5-10.1 [facility] Serum or plasma creatinine m easurement (mass/volume)Ordered By: Dr. Sawyer on 09-10-2022 Creatinine [Mass/Vol] 0.70 mg/dL 0.55-1.02 [facility] Comment on above: The validity of the calculated GFR & GFRAA in patients over 70 years has not been determined. Clinical correlation is essential. Serum or plasma urea nitroge n measurement (mass/volume)Ordered By: Dr. Sawyer on 09-10-2022 Urea nitrogen [Mass/Vol] 16 mg/dL 7-18 [facility] Thin prep Papanicolaou smear with manual screeningOrdered By: Dr. Sawyer on 09-10-2022 Thin prep Papanicolaou smear with manual screening 6 5-15 [facility] Whole blood hemoglobin A1c/t otal hemoglobin ratio (mass fraction)Ordered By: Dr. Fregoso on 09-10-2022 HbA1c (Bld) [Mass fraction] 6.7 % 3.8-5.6 [facility] Comment on above: Normal < 5.7 % Predi abetic 5.7 - 6.4 % Diabetic >or= 6.5 % Please note range changes. Laboratory - Chemistry and C hemistry - challengeon 07-30-2022 Free T4 [Mass/Vol] 1.39 ng/dL 0.76-1.46 [facility] Work Phone: No Panel Informationon 07-30 Thyroglobulin Antibody 1.6 IU/mL 0.0-0.9 [facility] Work Phone: Comment on above: Thyroglobulin Antibo dy measured by Camille CoulterMethodology Thyroid Stimulating Hormone (TSH) 1.23 uIU/mL 0.358-3.74 [facility] Work Phone: Thyroglobulin measurement by radioimmunoassay (JOSE)on 07-30-2022 Thyroglobulin Ab JOSE Qn (S) < 2.0 ng/mL . [facility] Work Phone: Comment on above: This test was develo ped and its performance characteristicsdetermined by [employer]. It has not been cleared or approvedby the Food and Drug Administration.Reference Range:Pubertal Childrenand Adults: <40According to the National Academy of Clinical Biochemistry,the reference interval for Thyroglobulin (TG) should berelated to euthyroid patients and not for patients whounderwent thyroidectomy. TG reference intervals for thesepatients depend on the residual mass of the thyroid tissueleft after surgery. Establishing a post-operative baselineis recommended. The assay quantitation limit is 2.0 ng/mL.Performed at: [facility] [address] [id number] Director: Eugenio Brown PhD, Phone: [phone] at: [facility] [employer] [address] [id number] Director: Lars Perez MD, Phone: [phone] Absolute lymphocyte counton 07-12-2022 Lymphocytes Auto (Unsp spec) [#/Vol] 2.34 10*3/uL 0.83-4.51 [facility] Work Phone: Basophil percentageon 2021 Basophils/100 WBC (Bld) 0.7 % 0-1 [facility] Work Phone: Bilirubin [Mass/Vol] 0.50 mg/dL 0.20-1.00 [facility] Work Phone: [phone] Comment on above: For patients on eltr ombopag therapy, use of Dimension Venus TBIL is not recommended. Chloride [Moles/Vol] 102 mmol/L 98-107 [facility] Work Phone: Eosinophils/100 WBC (Bld) 3.8 % 0-5 [facility] Work Phone: [phone] Glucose [Mass/Vol] 150 mg/dL 74-106 [facility] Work Phone: Comment on above: Fasting Glucose resu lt greater than or equal to 126 mg/dL suggests DIABETES MELLITUS per A.D.A. criteria. Neutrophils (Bld) [#/Vol] 3.9 10*3/uL 2.0-7.7 [facility] Work Phone: Neutrophils/100 WBC (Bld) 53.0 % 47-70 [facility] Work Phone: Potassium [Moles/Vol] 4.0 mmol/L 3.5-5.1 [facility] Work Phone: Protein [Mass/Vol] 7.6 g/dL 6.4-8.2 [facility] Work Phone: Sodium [Moles/Vol] 138 mmol/L 136-145 [facility] Work Phone: WBC (Bld) [#/Vol] 7.4 10*3/uL 4.4-11.0 [facility] Work Phone: Blood erythrocytes count (nu mber/volume)on 07-12-2022 RBC (Bld) [#/Vol] 4.27 10*6/uL 4.2-5.4 [facility]: Blood hemoglobin measurement (mass/volume)on 07-12-2022 Hemoglobin (Bld) [Mass/Vol] 12.9 g/dL 12.0-15.0 [facility] Work Phone: Blood lymphocytes/100 leukoc yteson 07-12-2022 Lymphocytes/100 WBC (Bld) 31.5 % 19-41 [facility] Work Phone: Blood monocytes/100 leukocyt eson 07-12-2022 Monocytes/100 WBC (Bld) 10.5 % 0-10 [facility] Work Phone: Blood platelet mean volumeon 07-12-2022 Platelet mean volume (Bld) [Entitic vol] 10.0 fL 6.2-12.0 [facility] Work Phone: Determination of erythrocyte mean corpuscular volume (MCV)on 07-12-2022 MCV (RBC) [Entitic vol] 91.3 fL 81-99 [facility] Work Phone: Erythrocyte sedimentation ra thomas 07-12-2022 ESR (Bld) [Velocity] 23 mm/h 0-30 [facility]: [phone] Hematocrit Auto (Bld) [Volum e fraction]on 07-12-2022 Hematocrit (Bld) [Volume fraction] 39.0 % 37-47 [facility] Work Phone: [phone] Laboratory - Chemistry and C hemistry - challengeon 07-12-2022 ALP [Catalytic activity/Vol] 68 U/L 45-117 [facility] Work Phone: [phone] ALT [Catalytic activity/Vol] 27 U/L 13-56 [facility] Work Phone: [phone] CO2 [Moles/Vol] 28.0 mmol/L 21.0-32.0 [facility] Work Phone: [phone] Globulin (S) [Mass/Vol] 3.9 g/dL 2.2-4.2 [facility] Work Phone: [phone] Urea nitrogen/Creatinine [Mass ratio] 34.5 mg/mg 10-20 [facility] Work Phone: [phone] Laboratory - Hematology and Cell countson 07-12-2022 Erythrocyte distribution width (RBC) [Entitic vol] 42.9 fL 35.1-43.9 [facility] Work Phone: [phone] Erythrocyte distribution width (RBC) [Ratio] 13.0 % 11.6-14.6 [facility] Work Phone: [phone] Immature granulocytes/100 WBC (Bld) 0.500 % 0.0-0.9 [facility] Work Phone: [phone] Comment on above: IG% - Immature Granu locytes (promyelocytes, myelocytes and metamyelocytes) > 1% indicates that a LEFT SHIFT is Present. MCH (RBC) [Entitic mass] 30.2 pg 27.0-32.0 [facility] Work Phone: [phone] Nucleated RBC/100 WBC (Bld) [Ratio] 0 % 0-5 [facility] Work Phone: [phone] MCHC Auto (RBC) [Mass/Vol]on 07-12-2022 MCHC (RBC) [Mass/Vol] 33.1 g/dL 32-36 [facility] Work Phone: No Panel Informationon 07-12 D-Dimer Quantitative (PE/DVT) 0.59 FEU/ug/m 0.27-0.49 [facility] Work Phone: Comment on above: D-Dimer ELEVATED (>0 .49): Additional studies and clinicalassessments are indicated to conclude diagnosis of:Deep Vein Thrombosis (DVT) or Pulmonary Embolism (PE) Estimated GFR (MDRD) Amer 107 mL/min >60 [facility] Work Phone: Comment on above: GFR Calc Estimated GFR (MDRD) Non-Af Amer 88 mL/min >60 [facility] Work Phone: Comment on above: Non- GFR Calc Platelets bldon 07-12-2022 Platelets (Bld) [#/Vol] 259 10*3/uL 150-450 [facility] Work Phone: Serum or plasma C reactive p rotein measurement (mass/volume)on 07-12-2022 CRP [Mass/Vol] 4.50 mg/L 0.0-3.0 [facility] Work Phone: Comment on above: C-Reactive Protein ( CRP) provides useful information for thediagnosis, therapy and monitoring of inflammatory processesand associated diseases. For the evaluation of Relative Riskfor Cardiovascular Disease, a High Sensitivity CRP (HSCRP)should be ordered. Serum or plasma albumin irina urement (mass/volume)on 07-12-2022 Albumin [Mass/Vol] 3.7 g/dL 3.2-5.0 [facility] Work Phone: Serum or plasma albumin/glob ulin mass ratioon 07-12-2022 Albumin/Globulin [Mass ratio] 0.9 {ratio} 0.9-2.4 [facility] Work Phone: Serum or plasma calcium irina urement (mass/volume)on 07-12-2022 Calcium [Mass/Vol] 9.4 mg/dL 8.5-10.1 [facility] Work Phone: Serum or plasma creatinine m easurement (mass/volume)on 07-12-2022 Creatinine [Mass/Vol] 0.70 mg/dL 0.55-1.02 [facility] Work Phone: Comment on above: The validity of the calculated GFR & GFRAA in patients over 70 years has not been determined. Clinical correlation is essential. Serum or plasma urea nitroge n measurement (mass/volume)on 07-12-2022 Urea nitrogen [Mass/Vol] 24 mg/dL 7-18 [facility] Work Phone: Thin prep Papanicolaou smear with manual screeningon 07-12-2022 Thin prep Papanicolaou smear with manual screening 16 U/L 15-37 [facility] Work Phone: Thin prep Papanicolaou smear with manual screening 8 5-15 [facility] Work Phone: Absolute lymphocyte counton 05-27-2022 Lymphocytes Auto (Unsp spec) [#/Vol] 2.62 10*3/uL 0.83-4.51 [facility] Work Phone: Basophil percentageon 2021 Basophils/100 WBC (Bld) 0.7 % 0-1 [facility] Work Phone: Bilirubin [Mass/Vol] 0.40 mg/dL 0.20-1.00 [facility] Work Phone: Comment on above: For patients on eltr ombopag therapy, use of Dimension Venus TBIL is not recommended. Chloride [Moles/Vol] 102 mmol/L 98-107 [facility] Work Phone: Cholesterol [Mass/Vol] 221 mg/dL <200 [facility] Work Phone: Comment on above: <200 mg/dL Desirable 200-240 mg/dL Borderline >240 mg/dL High Risk Eosinophils/100 WBC (Bld) 3.5 % 0-5 [facility] Work Phone: Glucose [Mass/Vol] 133 mg/dL 74-106 [facility] Work Phone: Comment on above: Fasting Glucose resu lt greater than or equal to 126 mg/dL suggests DIABETES MELLITUS per A.D.A. criteria. Neutrophils (Bld) [#/Vol] 4.9 10*3/uL 2.0-7.7 [facility] Work Phone: Neutrophils/100 WBC (Bld) 56.5 % 47-70 [facility] Work Phone: Potassium [Moles/Vol] 3.8 mmol/L 3.5-5.1 [facility] Work Phone: Protein [Mass/Vol] 7.6 g/dL 6.4-8.2 [facility] Work Phone: Sodium [Moles/Vol] 138 mmol/L 136-145 [facility] Work Phone: Triglyceride [Mass/Vol] 192 mg/dL <199 [facility] Work Phone: Comment on above: The drugs N-Acetylcy steine and Metamizole may falsely depress this assay.Serum Triglycerides Reference Interval Normal <150 mg/dL Borderline high 150 - 199 mg/dL High 200 - 499 mg/dL Very High > or = 500 mg/dL WBC (Bld) [#/Vol] 8.7 10*3/uL 4.4-11.0 [facility] Work Phone: Blood erythrocytes count (nu mber/volume)on 05-27-2022 RBC (Bld) [#/Vol] 4.47 10*6/uL 4.2-5.4 [facility] Work Phone: Blood hemoglobin measurement (mass/volume)on 05-27-2022 Hemoglobin (Bld) [Mass/Vol] 14.0 g/dL 12.0-15.0 [facility] Work Phone: Blood lymphocytes/100 leukoc yteson 05-27-2022 Lymphocytes/100 WBC (Bld) 30.3 % 19-41 [facility] Work Phone: Blood monocytes/100 leukocyt eson 05-27-2022 Monocytes/100 WBC (Bld) 8.7 % 0-10 [facility] Work Phone: [phone] Blood platelet mean volumeon 05-27-2022 Platelet mean volume (Bld) [Entitic vol] 9.9 fL 6.2-12.0 [facility] Work Phone: [phone] Determination of erythrocyte mean corpuscular volume (MCV)on 05-27-2022 MCV (RBC) [Entitic vol] 90.4 fL 81-99 [facility] Work Phone: [phone] Hematocrit Auto (Bld) [Volum e fraction]on 05-27-2022 Hematocrit (Bld) [Volume fraction] 40.4 % 37-47 [facility] Work Phone: [phone] Laboratory - Chemistry and C hemistry - challengeon 05-27-2022 ALP [Catalytic activity/Vol] 74 U/L 45-117 [facility] Work Phone: [phone] ALT [Catalytic activity/Vol] 27 U/L 13-56 [facility] Work Phone: [phone] CO2 [Moles/Vol] 29.0 mmol/L 21.0-32.0 [facility] Work Phone: [phone] Free T4 [Mass/Vol] 1.18 ng/dL 0.76-1.46 [facility] Work Phone: [phone] Globulin (S) [Mass/Vol] 4.1 g/dL 2.2-4.2 [facility] Work Phone: [phone] Magnesium [Mass/Vol] 2.2 mg/dL 1.6-2.6 [facility] Work Phone: [phone] Urea nitrogen/Creatinine [Mass ratio] 29.5 mg/mg 10-20 [facility] Work Phone: [phone] Laboratory - Hematology and Cell countson 05-27-2022 Erythrocyte distribution width (RBC) [Entitic vol] 43.2 fL 35.1-43.9 [facility] Work Phone: [phone] Erythrocyte distribution width (RBC) [Ratio] 13.2 % 11.6-14.6 [facility] Work Phone: Immature granulocytes/100 WBC (Bld) 0.300 % 0.0-0.9 [facility] Work Phone: Comment on above: IG% - Immature Granu locytes (promyelocytes, myelocytes and metamyelocytes) > 1% indicates that a LEFT SHIFT is Present. MCH (RBC) [Entitic mass] 31.3 pg 27.0-32.0 [facility] Work Phone: Nucleated RBC/100 WBC (Bld) [Ratio] 0 % 0-5 [facility] Work Phone: [phone] MCHC Auto (RBC) [Mass/Vol]on 05-27-2022 MCHC (RBC) [Mass/Vol] 34.7 g/dL 32-36 [facility] Work Phone: No Panel Informationon 05-27 Estimated GFR (MDRD) Amer 104 mL/min >60 [facility] Work Phone: Comment on above: GFR Calc Estimated GFR (MDRD) Non-Af Amer 86 mL/min >60 [facility] Work Phone: Comment on above: Non- GFR Calc Free Triiodothyronine (T3) pg/dL 1.8 pg/mL 2.18-3.98 [facility] Work Phone: [phone] Thyroid Stimulating Hormone (TSH) 10.40 uIU/mL 0.358-3.74 [facility] Work Phone: [phone] Vitamin D 25-Hydroxy 65.2 ng/mL [facility] Work Phone: [phone] Comment on above: Vitamin D 25(OH) Sta tus Range Deficiency <20 ng/mL (50nmol/L) Insufficiency 20 - 30 ng/mL (50 - 75 nmol/L) Sufficiency 30 - 100 ng/mL (75 - 250 nmol/L) Toxicity >100 ng/mL (>250 nmol/L) Platelets bldon 05-27-2022 Platelets (Bld) [#/Vol] 276 10*3/uL 150-450 [facility] Work Phone: Serum or plasma albumin irina urement (mass/volume)on 05-27-2022 Albumin [Mass/Vol] 3.5 g/dL 3.2-5.0 [facility] Work Phone: Serum or plasma albumin/glob ulin mass ratioon 05-27-2022 Albumin/Globulin [Mass ratio] 0.9 {ratio} 0.9-2.4 [facility] Work Phone: Serum or plasma calcium irina urement (mass/volume)on 05-27-2022 Calcium [Mass/Vol] 9.1 mg/dL 8.5-10.1 [facility] Work Phone: Serum or plasma cholesterol in HDL measurement (mass/volume)on 05-27-2022 Cholesterol in HDL [Mass/Vol] 50 mg/dL >40 [facility] Work Phone: Comment on above: The drugs N-Acetylcy steine and Metamizole may falsely depress this assay. Reference Range HDL <40 mg/dL Low HDL Cholesterol HDL >or= 60 mg/dL High HDL Cholesterol Serum or plasma cholesterol in VLDL measurement (mass/volume)on 05-27-2022 Cholesterol in VLDL [Mass/Vol] 38 mg/dL 5-40 [facility] Work Phone: Serum or plasma creatinine m easurement (mass/volume)on 05-27-2022 Creatinine [Mass/Vol] 0.71 mg/dL 0.55-1.02 [facility] Work Phone: Comment on above: The validity of the calculated GFR & GFRAA in patients over 70 years has not been determined. Clinical correlation is essential. Serum or plasma low density lipoprotein (LDL) cholesterol measurement (mass/volume)on 05-27-2022 Cholesterol in LDL [Mass/Vol] 133 mg/dL 0-130 [facility] Work Phone: Serum or plasma urea nitroge n measurement (mass/volume)on 05-27-2022 Urea nitrogen [Mass/Vol] 21 mg/dL 7-18 [facility] Work Phone: Thin prep Papanicolaou smear with manual screeningon 05-27-2022 Thin prep Papanicolaou smear with manual screening 15 U/L 15-37 [facility] Work Phone: Thin prep Papanicolaou smear with manual screening 7 5-15 [facility] Work Phone: Whole blood hemoglobin A1c/t otal hemoglobin ratio (mass fraction)on 05-27-2022 HbA1c (Bld) [Mass fraction] 6.4 % 3.8-5.6 [facility] Work Phone: Comment on above: Normal < 5.7 % Predi abetic 5.7 - 6.4 % Diabetic >or= 6.5 % Please note range changes. Chart Maintenanceon 08-24-20 17 HbA1c 5.7 % Invalid Interpretation Code [employer] Work Phone: Office Visiton 05-11-2017 Dietary management education, guidance, and counseling (procedure) yes Invalid Interpretation Code [facility] Work Phone: [phone] Documentation of current medications (procedure) Done Invalid Interpretation Code [facility] Work Phone: [phone] Fall risk assessment No Invalid Interpretation Code [facility] Work Phone: [phone] Protein mass conc Done [facility] Work Phone: [phone] Clinical Lists Update: Prelo registered nurse step down 10-20-2016 Left ventricular Ejection fraction 65 % Invalid Interpretation Code [facility] Work Phone: [phone] Office Visiton 10-04-2016 Tobacco smoking status WVIS Tobacco smoking status NHIS Invalid Interpretation Code [employer] Work Phone: Tobacco smoking status NHIS Never smoker [facility] Work Phone: [phone] Tobacco use [facility] Never smoker Invalid Interpretation Code [facility] Work Phone: [phone] Chart Maintenanceon 07-29-20 16 Alkaline phosphatase (ALP) 76 U/L Invalid Interpretation Code [facility] Work Phone: [phone] ALP enzyme act/vol (Bld) 76 U/L [facility] Work Phone: [phone] ALT enzyme act/vol 33 U/L Invalid Interpretation Code [facility] Work Phone: [phone] Anion gap 5 mmol/L Invalid Interpretation Code [facility] Work Phone: [phone] Anion gap molar conc 5 mmol/L [facility] Work Phone: [phone] AST enzyme act/vol 15 U/L Invalid Interpretation Code [facility] Work Phone: [phone] Bilirubin mass conc 0.40 mg/dL Invalid Interpretation Code [facility] Work Phone: [phone] Calcium mass conc 8.8 mg/dL Invalid Interpretation Code [facility] Work Phone: [phone] Chloride molar conc 102 mmol/L Invalid Interpretation Code [facility] Work Phone: [phone] Cholesterol in HDL mass conc 61 mg/dL Invalid Interpretation Code [facility] Work Phone: [phone] Cholesterol in LDL mass conc 100 mg/dL Invalid Interpretation Code [facility] Work Phone: [phone] Cholesterol mass conc 190 mg/dL Invalid Interpretation Code [facility] Work Phone: [phone] CO2 29 mmol/L Invalid Interpretation Code [facility] Work Phone: [phone] CO2 ppres (BldV) 29 mmol/L [facility] Work Phone: [phone] Creatinine mass conc 0.70 mg/dL Invalid Interpretation Code [facility] Work Phone: [phone] Glucose 162 mg/dL High [facility] Work Phone: [phone] Glucose mass conc 162 mg/dL High [facility] Work Phone: [phone] Hematocrit (HCT) 40.0 % Invalid Interpretation Code [facility] Work Phone: [phone] Hematocrit Volume Fraction (Bld) 40.0 % [facility] Work Phone: [phone] Hemoglobin mass conc (Bld) 14.1 g/dL Invalid Interpretation Code [facility] Work Phone: [phone] Platelets 268 10*3/mm3 Invalid Interpretation Code [facility] Work Phone: [phone] Platelets #/vol (Bld) 268 10*3/mm3 [facility] Work Phone: [phone] Potassium molar conc 4.1 mmol/L Invalid Interpretation Code [facility] Work Phone: [phone] Sodium molar conc 136 mmol/L Invalid Interpretation Code [facility] Work Phone: [phone] Thyrotropin Qn 1.57 u[iU]/mL Invalid Interpretation Code [facility] Work Phone: [phone] Triglyceride mass conc 145 mg/dL Invalid Interpretation Code [facility] Work Phone: [phone] Urea nitrogen mass conc 20 mg/dL High [facility] Work Phone: [phone] Urea nitrogen/Creatinine mass ratio 28.8 mg/mg High [facility] Work Phone: [phone] Lab Report: Basic Metabolic Profile (BMP)on 10-03-2015 eGFR (non-black) 124 mL/min/{1.73_m2} Invalid Interpretation Code >60 [facility] Work Phone: [phone] EST GFR - AA 124 mL/min >60 [facility] Work Phone: [phone] GFR/1.73 sq M predicted among non-blacks MDRD vol rate/area (S/P/Bld) 103 mL/min/{1.73_m2} Invalid Interpretation Code >60 [facility] Work Phone: [phone] Lab Report: Blood Gas Specim en Typeon 09-30-2015 arterial blood gas ART Invalid Interpretation Code [facility] Work Phone: [phone] BLD GAS TYPE ART [facility] Work Phone: [phone]) Lab Report: PO2 I-Vandana Oxygen in arterial blood 80 mm[Hg] Invalid Interpretation Code 75-100 [facility] Work Phone: [phone] Oxygen ppres (Bld) 80 mm[Hg] 75-100 [facility] Work Phone: [phone] Lab Report: SO2 ISTATon 12-0 O2 saturation 95 % Invalid Interpretation Code 95-99 [facility] Work Phone: [phone] SaO2% mass fraction (BldA) 95 % 95-99 [facility] Work Phone: [phone] Lab Report: VBG PO2 I-Vandana 09-30-2015 oxygen, partial pressure, venous blood 46 mm[Hg] High 25-40 [facility] Work Phone: [phone] VBG PO2 I-STAT 46 mm[Hg] High 25-40 [facility] Work Phone: [phone] Lab Report: VBG SO2 ISTATon 09-30-2015 saturation venous oxygen 81 % High 50-70 [facility] Work Phone: [phone] VBG SO2 ISTAT 81 % High 50-70 [facility] Work Phone: [phone] Lab Report: CBC W/Diff, Auto matedon 09-26-2015 Basophils/100 leukocytes 0.6 % Invalid Interpretation Code 0-1 [facility] Work Phone: [phone] Basophils/100 WBC (Bld) 0.6 % 0-1 [facility] Work Phone: [phone] Eosinophils/100 leukocytes 3.2 % Invalid Interpretation Code 0-5 [facility] Work Phone: [phone] Eosinophils/100 WBC (Bld) 3.2 % 0-5 [facility] Work Phone: [phone] Erythrocyte distribution width Ratio (RBC) 42.2 fL 35.1-43.9 [facility] Work Phone: [phone] Erythrocyte distribution width Ratio (RBC) 13.2 % 11.6-14.6 [facility] Work Phone: [phone] Erythrocytes (RBC) 4.50 10*6/uL Invalid Interpretation Code 4.2-5.4 [facility] Work Phone: [phone] Immature granulocytes #/vol (Bld) 0.400 % 0.0-0.9 [facility] Work Phone: [phone] immature granulocytes, percentage of total cells, blood 0.400 % Invalid Interpretation Code 0.0-0.9 [facility] Work Phone: [phone] Lymphocytes 3.00 X10 3/UL Invalid Interpretation Code 0.83-4.51 [facility] Work Phone: [phone] Lymphocytes #/vol (Bld) 3.00 X10 3/UL 0.83-4.51 [facility] Work Phone: [phone] Lymphocytes/100 leukocytes 36.9 % Invalid Interpretation Code 19-41 [facility] Work Phone: [phone] Lymphocytes/100 WBC (Bld) 36.9 % 19-41 [facility] Work Phone: [phone] MCH 30.4 pg Invalid Interpretation Code 27.0-32.0 [facility] Work [phone] MCH Entitic mass (RBC) 30.4 pg 27.0-32.0 [facility] Work [phone] MCHC 34.5 G/GL Invalid Interpretation Code 32-36 [facility] Work [phone] MCHC mass conc (RBC) 34.5 G/GL 32-[address] [facility] Work [phone] MCV 88.2 fL Invalid Interpretation Code 81-99 [facility] Work Phone: [phone] MCV Entitic volume (RBC) 88.2 fL 81-99 [facility] Work [phone] Monocytes/100 leukocytes 8.7 % Invalid Interpretation Code 0-10 [facility] Work [phone] Monocytes/100 WBC (Bld) 8.7 % 0-10 [facility] Work Phone: [phone] neutrophil count, blood 4.1 X10 3/UL Invalid Interpretation Code 2.0-7.7 [facility] Work Phone: [phone] Neutrophils #/vol (Bld) 4.1 X10 3/UL 2.0-7.7 [facility] Work Phone: [phone] Neutrophils/100 leukocytes 50.2 % Invalid Interpretation Code 47-70 [facility] Work [phone] Neutrophils/100 WBC (Bld) 50.2 % 47-70 [facility] Work Phone: [phone] Platelet mean volume Entitic volume (Bld) 9.6 fL 6.2-12.0 [facility] Work Phone: PMV by Meliza 9.6 fL Invalid Interpretation Code 6.2-12.0 [employer] Phone: [phone] RBC #/vol (Bld) 4.50 10*6/uL 4.2-5.4 [facility] Work Phone: [phone] RDW-CA 13.2 % Invalid Interpretation Code 11.6-14.6 [facility] Work Phone: [phone] red blood cell distribution width, size density 42.2 fL Invalid Interpretation Code 35.1-43.9 [facility] Work Phone: [phone] WBC #/vol (Bld) 8.1 10*3/uL 4.4-11.0 [facility] Work Phone: [phone] WBC (Leukocytes) 8.1 10*3/uL Invalid Interpretation Code 4.4-11.0 [facility] Phone: [phone] Lab Report: Partial Thrombop last Timeon 09-26-2015 aPTT Coag time (Bld) 32.4 s Invalid Interpretation Code 24.1-36.2 [facility] Work Phone: [phone]) Lab Report: Prothrombin Time w/INRon 09-26-2015 INR Coag RelTime (PPP) 1.0 {INR} [facility] Work Phone: [phone] INR in blood by coagulation 1.0 {INR} Invalid Interpretation Code [employer] Phone: [phone] Prothrombin time (PT) Coag time (PPP) 13.4 s Invalid Interpretation Code 11.7-14.9 [facility] Work Phone: [phone] Replaced Document: [place] E CG Observationson 09-15-2015 EKG QRS axis -18 deg [facility] Work Phone: [phone] electrocardiogram interpretation Sinus Rhythm WITHIN NORMAL LIMITS Invalid Interpretation Code [facility] Work Phone: [phone] GE use only - for [employer] import when terms are not otherwise specified 406 ms Invalid Interpretation Code [employer] Phone: [phone] Interpretation Sinus Rhythm WITHIN NORMAL LIMITS [employer] Phone: P [place] 55 deg [employer] Work Phone: [phone] P wave axis, electrocardiogram 55 deg Invalid Interpretation Code [employer] Work Phone: [phone] ID Interval 150 ms [employer] Work Phone: [phone] ID interval, electrocardiogram 150 ms Invalid Interpretation Code [employer] Work Phone: [phone] Pulse (Heart Rate) 73 /min Invalid Interpretation Code [employer] Work Phone: [phone] QRS axis, electrocardiogram -18 deg Invalid Interpretation Code [employer] Work Phone: [phone] QRS Duration 94 ms [employer] Work Phone: [phone] QRS duration, electrocardiogram 94 ms Invalid Interpretation Code [employer] Work Phone: [phone] QT Interval new path ms [employer] Work Phone: [phone] QT interval, electrocardiogram new path ms Invalid Interpretation Code [employer] Work Phone: [phone] QTc Malcolm 406 ms [employer] Work Phone: [phone] T [place] 17 deg [employer] Work Phone: [phone] T wave axis, electrocardiogram 17 deg Invalid Interpretation Code [employer] Work Phone: [phone] Office [facility] 08-14-2015 cardiac risk group C Invalid Interpretation Code [employer] Phone: [phone] General cardiovascular disease 10Y risk [#] Tyler.D'Agostino 24 % Invalid Interpretation Code [employer] Work Phone: [phone] Clinical Lists Update: Prelo registered nurse step down 08-09-2014 Lipoprotein.pre-beta mass conc 22 mg/dL Invalid Interpretation Code [employer] Work Phone: [phone] T4 mass conc 7.5 ug/dL Invalid Interpretation Code [employer] Work Phone: [phone] Vital Signs Date Time Vital Sign Value Performing Clinician Brenden selby 08-14-2025 08:56-0400 Body height 157.[address] Ora Nam MD Work Phone: [facility] 08-14-2025 08:56-0400 Body mass index (BMI) [Ratio] 42.6 kg/m2 Dr. Oar Nam MD Work Phone: [facility] 08-14-2025 08:56-0400 Body temperature 98 [degF] Dr. Ora Nam MD Work Phone: [facility] 08-14-2025 08:56-0400 Body weight 105.[address] Ora Nam MD Work Phone: [facility] 08-14-2025 08:56-0400 Diastolic blood pressure 83 mm[Hg] Dr. Ora Nam MD Work Phone: [facility] 08-14-2025 08:56-0400 Heart rate 65 /min Dr. Ora Nam MD Work Phone: [facility] 08-14-2025 08:56-0400 Respiratory rate 16 /min Dr. Ora Nam MD Work Phone: [facility] 08-14-2025 08:56-0400 SaO2% (BldA) [Mass fraction] 98 % Dr. Ora Nam MD Work Phone: [facility] 08-14-2025 08:56-0400 Systolic blood pressure 120 mm[Hg] Dr. Ora Nam MD Work Phone: [facility] 08-07-2025 11:27-0400 Body height 157.[address] Ora Nam MD Work Phone: [facility] 08-07-2025 11:27-0400 Body mass index (BMI) [Ratio] 42.7 kg/m2 Dr. Ora Nam MD Work Phone: [facility] 08-07-2025 11:27-0400 Body weight 106.[address] rOa Nam MD Work Phone: [facility] 08-07-2025 11:27-0400 Diastolic blood pressure 72 mm[Hg] Dr. Ora Nam MD Work Phone: [facility] 08-07-2025 11:27-0400 Heart rate 69 /min Dr. Ora Nam MD Work Phone: [facility] 08-07-2025 11:27-0400 Systolic blood pressure 134 mm[Hg] Dr. Ora Nam MD Work Phone: [facility] 08-07-2025 09:37-0400 Diastolic blood pressure 66 mm[Hg] Dr. Ora Nam MD Work Phone: [facility] 08-07-2025 09:37-0400 Systolic blood pressure 109 mm[Hg] Dr. Ora Nam MD Work Phone: [facility] 08-07-2025 08:01-0400 Body mass index (BMI) [Ratio] 42.7 kg/m2 Dr. Ora Nam MD Work Phone: [facility] 08-07-2025 08:01-0400 Body weight 106.[address] Ora Nam MD Work Phone: [facility] 08-07-2025 08:01-0400 Heart rate 71 /min Dr. Ora Nam MD Work Phone: [facility] 08-07-2025 08:01-0400 Respiratory rate 18 /min Dr. Ora Nam MD Work Phone: [facility] 08-07-2025 08:01-0400 SaO2% (BldA) [Mass fraction] 98 % Dr. Ora Nam MD Work Phone: [facility] 08-27-2024 13:47-0400 Body height 157.5 cm Ree Fletcher MD Work Phone: [facility] 08-27-2024 13:47-0400 Body mass index (BMI) [Ratio] 48.51 kg/m2 Ree Fletcher MD Work Phone: [facility] 08-27-2024 13:47-0400 Body weight 120.29 kg Ree Fletcher MD Work Phone: [facility] 08-27-2024 13:47-0400 Diastolic blood pressure 70 mm[Hg] Ree Fletcher MD Work Phone: [facility] 08-27-2024 13:47-0400 Systolic blood pressure 110 mm[Hg] Ree Fletcher MD Work Phone: [facility] 10-20-2023 14:34-0500 Body height 157.[address] Ora Nam Work Phone: [facility] 10-20-2023 14:34-0500 Body mass index (BMI) [Ratio] 47.5 kg/m2 Dr. Ora Nam Work Phone: [facility] 10-20-2023 14:34-0500 Body weight 117.[address] Ora Nam Work Phone: [facility] 10-20-2023 14:34-0500 Diastolic blood pressure 74 mm[Hg] Dr. Ora Nam Work Phone: [facility] 10-20-2023 14:34-0500 Heart rate 75 /min Dr. Ora Nam Work Phone: [facility] 10-20-2023 14:34-0500 Respiratory rate 16 /min Dr. Ora Nam Work Phone: [facility] 10-20-2023 14:34-0500 Systolic blood pressure 162 mm[Hg] Dr. Ora Nam Work Phone: [facility] 07-20-2023 13:03-0400 Body height 157.[address] Ora Nam Work Phone: [facility] 07-20-2023 13:01-0400 Body mass index (BMI) [Ratio] 46 kg/m2 Dr. Ora Nam Work Phone: [facility] 07-20-2023 13:01-0400 Body weight 114.[address] Ora Nam Work Phone: [facility] 07-20-2023 13:01-0400 Diastolic blood pressure 85 mm[Hg] Dr. Ora Nam Work Phone: [facility] 07-20-2023 13:01-0400 Heart rate 72 /min Dr. Ora Nam Work Phone: [facility] 07-20-2023 13:01-0400 Respiratory rate 20 /min Dr. Ora Nam Work Phone: [facility] 07-20-2023 13:01-0400 SaO2% (BldA) [Mass fraction] 96 % Dr. Ora Nam Work Phone: [facility] 07-20-2023 13:01-0400 Systolic blood pressure 163 mm[Hg] Dr. Ora Nam Work Phone: [facility] 07-20-2023 11:41-0400 Body mass index (BMI) [Ratio] 46.4 kg/m2 Dr. Ora Nam Work Phone: [facility] 07-20-2023 11:41-0400 Body temperature 98.4 [degF] Dr. Ora Nam Work Phone: [facility] 07-20-2023 11:41-0400 Body weight 115.[address] Ora Nam Work Phone: [facility] 07-20-2023 11:41-0400 Diastolic blood pressure 79 mm[Hg] Dr. Ora Nam Work Phone: [facility] 07-20-2023 11:41-0400 Heart rate 74 /min Dr. Ora Nam Work Phone: [facility] 07-20-2023 11:41-0400 Respiratory rate 16 /min Dr. Ora Nam Work Phone: [facility] 07-20-2023 11:41-0400 SaO2% (BldA) [Mass fraction] 96 % Dr. Ora Nam Work Phone: [facility] 07-20-2023 11:41-0400 Systolic blood pressure 134 mm[Hg] Dr. Ora Nam Work Phone: [facility] 07-07-2023 08:03-0400 Body height 157.[address] Ora Nam Work Phone: [facility] 07-07-2023 08:03-0400 Body mass index (BMI) [Ratio] 46.5 kg/m2 Dr. Ora Nam Work Phone: [facility] 07-07-2023 08:03-0400 Body temperature 98 [degF] Dr. Ora Nam Work Phone: [facility] 07-07-2023 08:03-0400 Body weight 115.[address] Ora Nam Work Phone: [facility] 07-07-2023 08:03-0400 Diastolic blood pressure 84 mm[Hg] Dr. Ora Nam Work Phone: [facility] 07-07-2023 08:03-0400 Heart rate 72 /min Dr. Ora Nam Work Phone: [facility] 07-07-2023 08:03-0400 Respiratory rate 18 /min Dr. Ora Nam Work Phone: [facility] 07-07-2023 08:03-0400 SaO2% (BldA) [Mass fraction] 96 % Dr. Ora Nam Work Phone: [facility] 07-07-2023 08:03-0400 Systolic blood pressure 144 mm[Hg] Dr. Ora Nam Work Phone: [facility] 04-11-2023 13:52-0400 Body height 157.[address] Ora Nam Work Phone: [facility] 04-11-2023 13:52-0400 Diastolic blood pressure 63 mm[Hg] Dr. Ora Nam Work Phone: [facility] 04-11-2023 13:52-0400 Heart rate 78 /min Dr. Ora Nam Work Phone: [facility] 04-11-2023 13:52-0400 Respiratory rate 17 /min Dr. Ora Nam Work Phone: [facility] 04-11-2023 13:52-0400 Systolic blood pressure 165 mm[Hg] Dr. Ora Nam Work Phone: [facility] 04-05-2023 07:15-0400 Body height 157.[address] Ora Nam Work Phone: [facility] 04-05-2023 07:15-0400 Body weight 114.[address] Ora Nam Work Phone: [facility] 04-04-2023 11:09-0400 Body mass index (BMI) [Ratio] 46.3 kg/m2 Dr. Ora Nam Work Phone: [facility] 03-29-2023 08:57-0400 Body mass index (BMI) [Ratio] 46.6 kg/m2 Dr. Ora Nam Work Phone: [facility] 03-29-2023 08:57-0400 Body temperature 98.6 [degF] Dr. Ora Nam Work Phone: [facility] 03-29-2023 08:57-0400 Body weight 115.[address] Ora Nam Work Phone: [facility] 03-29-2023 08:57-0400 Diastolic blood pressure 77 mm[Hg] Dr. Ora Nam Work Phone: [facility] 03-29-2023 08:57-0400 Heart rate 76 /min Dr. Ora Nam Work Phone: [facility] 03-29-2023 08:57-0400 Respiratory rate 16 /min Dr. Ora Nam Work Phone: [facility] 03-29-2023 08:57-0400 SaO2% (BldA) [Mass fraction] 97 % Dr. Ora Nam Work Phone: [facility] 03-29-2023 08:57-0400 Systolic blood pressure 158 mm[Hg] Dr. Ora Nam Work Phone: [facility] 03-21-2023 09:07-0400 Body mass index (BMI) [Ratio] 46.3 kg/m2 Dr. Ora Nam Work Phone: [facility] 03-21-2023 09:07-0400 Body weight 114.[address] Ora Nam Work Phone: [facility] 03-21-2023 09:07-0400 Diastolic blood pressure 86 mm[Hg] Dr. Ora Nam Work Phone: [facility] 03-21-2023 09:07-0400 Heart rate 68 /min Dr. Ora Nam Work Phone: [facility] 03-21-2023 09:07-0400 Respiratory rate 16 /min Dr. Ora Nam Work Phone: [facility] 03-21-2023 09:07-0400 Systolic blood pressure 149 mm[Hg] Dr. Ora Nam Work Phone: [facility] 01-12-2023 11:08-0400 Body temperature 98 [degF] Dr. Ora Nam Work Phone: [facility] 01-12-2023 11:08-0400 Body weight 117.[address] Ora Nam Work Phone: [facility] 01-12-2023 11:08-0400 Diastolic blood pressure 82 mm[Hg] Dr. Ora Nam Work Phone: [facility] 01-12-2023 11:08-0400 Heart rate 79 /min Dr. Ora Nam Work Phone: [facility] 01-12-2023 11:08-0400 Respiratory rate 16 /min Dr. Ora Nam Work Phone: [facility] 01-12-2023 11:08-0400 SaO2% (BldA) [Mass fraction] 96 % Dr. Ora Nam Work Phone: [facility] 01-12-2023 11:08-0400 Systolic blood pressure 146 mm[Hg] Dr. Ora Nam Work Phone: [facility] 12-12-2022 09:56-0500 Body height 157.[address] Ora Nam Work Phone: [facility] 12-12-2022 09:56-0500 Body mass index (BMI) [Ratio] 45.7 kg/m2 Dr. Ora Nam Work Phone: [facility] 12-12-2022 09:56-0500 Body temperature 97.3 [degF] Dr. Ora Nam Work Phone: [facility] 12-12-2022 09:56-0500 Body weight 113.[address] Ora Nam Work Phone: [facility] 12-12-2022 09:56-0500 Diastolic blood pressure 60 mm[Hg] Dr. Ora Nam Work Phone: [facility] 12-12-2022 09:56-0500 Heart rate 96 /min Dr. Ora Nam Work Phone: [facility] 12-12-2022 09:56-0500 Respiratory rate 20 /min Dr. Ora Nam Work Phone: [facility] 12-12-2022 09:56-0500 SaO2% (BldA) [Mass fraction] 94 % Dr. Ora Nam Work Phone: [facility] 12-12-2022 09:56-0500 Systolic blood pressure 135 mm[Hg] Dr. Ora Nam Work Phone: [facility] 10-14-2022 13:25-0500 Body height 157.[address] Ora Nam Work Phone: [facility] Work Phone: 10-14-2022 13:25-0500 Body mass index (BMI) [Ratio] 47.7 kg/m2 Dr. Ora Nam Work Phone: [facility] 10-14-2022 13:25-0500 Body weight 118.[address] Ora Nam Work Phone: [facility] 10-14-2022 13:25-0500 Diastolic blood pressure 70 mm[Hg] Dr. Ora Nam Work Phone: [facility] 10-14-2022 13:25-0500 Heart rate 68 /min Dr. Ora Nam Work Phone: [facility] 10-14-2022 13:25-0500 Respiratory rate 16 /min Dr. Ora Nam Work Phone: [facility] 10-14-2022 13:25-0500 Systolic blood pressure 128 mm[Hg] Dr. Ora Nam Work Phone: [facility] 10-04-2022 10:43-0500 Diastolic blood pressure 79 mm[Hg] Dr. Ora Nam Work Phone: [facility] 10-04-2022 10:43-0500 Systolic blood pressure 159 mm[Hg] Dr. Ora Nam Work Phone: [facility] 10-04-2022 10:36-0500 Body mass index (BMI) [Ratio] 47.6 kg/m2 Dr. Ora Nam Work Phone: [facility] 10-04-2022 10:36-0500 Body temperature 96.6 [degF] Dr. Ora Nam Work Phone: [facility] 10-04-2022 10:36-0500 Body weight 118.[address] Ora Nam Work Phone: [facility] 10-04-2022 10:36-0500 Heart rate 70 /min Dr. Ora Nam Work Phone: [facility] 10-04-2022 10:36-0500 Respiratory rate 18 /min Dr. Ora Nam Work Phone: [facility] 10-04-2022 10:36-0500 SaO2% (BldA) [Mass fraction] 96 % Dr. Ora Nam Work Phone: [facility] 09-30-2022 14:05-0500 Diastolic blood pressure 83 mm[Hg] Dr. Ora Nam Work Phone: [facility] 09-30-2022 14:05-0500 Systolic blood pressure 140 mm[Hg] Dr. Ora Nam Work Phone: [facility] 09-30-2022 13:45-0500 Heart rate 85 /min Dr. Ora Nam Work Phone: [facility] 09-30-2022 13:45-0500 Respiratory rate 18 /min Dr. Ora Nam Work Phone: [facility] 09-21-2022 08:46-0500 Body temperature 98.2 [degF] Dr. Ora Nam Work Phone: [facility] 09-21-2022 08:46-0500 Diastolic blood pressure 55 mm[Hg] Dr. Ora Nam Work Phone: [facility] 09-21-2022 08:46-0500 Heart rate 55 /min Dr. Ora Nam Work Phone: [facility] 09-21-2022 08:46-0500 Inhaled oxygen flow rate 8 L/min Dr. Ora Nam Work Phone: [facility] 09-21-2022 08:46-0500 Respiratory rate 17 /min Dr. Ora Nam Work Phone: [facility] 09-21-2022 08:46-0500 SaO2% (BldA) [Mass fraction] 97 % Dr. Ora Nam Work Phone: [facility] 09-21-2022 08:46-0500 Systolic blood pressure 130 mm[Hg] Dr. Ora Nam Work Phone: [facility] 09-20-2022 15:02-0500 Body height 157.[address] Ora Nam Work Phone: [facility] Work Phone: 09-20-2022 15:02-0500 Body mass index (BMI) [Ratio] 47.2 kg/m2 Dr. Ora Nam Work Phone: [facility] 09-20-2022 15:02-0500 Body weight [address] Ora Nam Work Phone: [facility] 09-16-2022 09:52-0500 Body temperature 98.3 [degF] Dr. Ora Nam Work Phone: [facility] 09-16-2022 09:52-0500 Body weight 117.[address] Ora Nam Work Phone: [facility] 09-16-2022 09:52-0500 Diastolic blood pressure 82 mm[Hg] Dr. Ora Nam Work Phone: [facility] 09-16-2022 09:52-0500 Heart rate 98 /min Dr. Ora Nam Work Phone: [facility] 09-16-2022 09:52-0500 Respiratory rate 16 /min Dr. Ora Nam Work Phone: [facility] 09-16-2022 09:52-0500 SaO2% (BldA) [Mass fraction] 97 % Dr. Ora Nam Work Phone: [facility] 09-16-2022 09:52-0500 Systolic blood pressure 134 mm[Hg] Dr. Ora Nam Work Phone: [facility] 07-12-2022 09:01-0400 Body temperature 98.1 [degF] Dr. Ora Nam Work Phone: [facility] Work Phone: 07-12-2022 09:01-0400 Body weight 74.[address] Ora Nam Work Phone: [facility] Work Phone: 07-12-2022 09:01-0400 Diastolic blood pressure 85 mm[Hg] Dr. Ora Nam Work Phone: [facility] Work Phone: 07-12-2022 09:01-0400 Heart rate 79 /min Dr. Ora Nam Work Phone: [facility] Work Phone: 07-12-2022 09:01-0400 Respiratory rate 16 /min Dr. Ora Nam Work Phone: [facility] Work Phone: 07-12-2022 09:01-0400 SaO2% (BldA) [Mass fraction] 95 % Dr. Ora Nam Work Phone: [facility] Work Phone: 07-12-2022 09:01-0400 Systolic blood pressure 168 mm[Hg] Dr. Ora Nam Work Phone: [facility] Work Phone: 07-09-2022 14:21-0400 Body temperature 97.8 [degF] Dr. Ora Nam Work Phone: [facility] Work Phone: 07-09-2022 14:21-0400 Diastolic blood pressure 94 mm[Hg] Dr. Ora Nam Work Phone: [facility] Work Phone: 07-09-2022 14:21-0400 Heart rate 88 /min Dr. Ora Nam Work Phone: [facility] Work Phone: 07-09-2022 14:21-0400 Respiratory rate 16 /min Dr. Ora Nam Work Phone: [facility] Work Phone: 07-09-2022 14:21-0400 SaO2% (BldA) [Mass fraction] 98 % Dr. Ora Nam Work Phone: [facility] Work Phone: 07-09-2022 14:21-0400 Systolic blood pressure 146 mm[Hg] Dr. Ora Nam Work Phone: [facility] Work Phone: 06-23-2022 14:41-0400 Diastolic blood pressure 75 mm[Hg] Dr. Ora Nam Work Phone: [facility] Work Phone: 06-23-2022 14:41-0400 Systolic blood pressure 129 mm[Hg] Dr. Ora Nam Work Phone: [facility] Work Phone: 06-14-2022 13:09-0400 Body height 157.[address] Ora Nam Work Phone: [facility] Work Phone: 06-14-2022 13:09-0400 Body mass index (BMI) [Ratio] 47.6 kg/m2 Dr. Ora Nam Work Phone: [facility] Work Phone: 06-14-2022 13:09-0400 Body temperature 97.7 [degF] Dr. Ora Nam Work Phone: [facility] Work Phone: 06-14-2022 13:09-0400 Body weight 118.[address] Ora Nam Work Phone: [facility] Work Phone: 06-14-2022 13:09-0400 Diastolic blood pressure 85 mm[Hg] Dr. Ora Nam Work Phone: [facility] Work Phone: 06-14-2022 13:09-0400 Heart rate 84 /min Dr. Ora Nam Work Phone: [facility] Work Phone: 06-14-2022 13:09-0400 Respiratory rate 17 /min Dr. Ora Nam Work Phone: [facility] Work Phone: 06-14-2022 13:09-0400 SaO2% (BldA) [Mass fraction] 97 % Dr. Ora Nam Work Phone: [facility] Work Phone: 06-14-2022 13:09-0400 Systolic blood pressure 152 mm[Hg] Dr. Ora Nam Work Phone: [facility] Work Phone: 05-31-2022 11:04-0400 Body height 157.[address] Ora Nam Work Phone: [facility] Work Phone: 05-31-2022 11:04-0400 Body mass index (BMI) [Ratio] 47.9 kg/m2 Dr. Ora Nam Work Phone: [facility] Work Phone: 05-31-2022 11:04-0400 Body temperature 96.3 [degF] Dr. Ora Nam Work Phone: [facility] Work Phone: 05-31-2022 11:04-0400 Body weight 118.[address] Ora Nam Work Phone: [facility] Work Phone: 05-31-2022 11:04-0400 Diastolic blood pressure 90 mm[Hg] Dr. Ora Nam Work Phone: [facility] Work Phone: 05-31-2022 11:04-0400 Heart rate 71 /min Dr. Ora Nam Work Phone: [facility] Work Phone: 05-31-2022 11:04-0400 Respiratory rate 20 /min Dr. Ora Nam Work Phone: [facility] Work Phone: 05-31-2022 11:04-0400 SaO2% (BldA) [Mass fraction] 98 % Dr. Ora Nam Work Phone: [facility] Work Phone: 05-31-2022 11:04-0400 Systolic blood pressure 140 mm[Hg] Dr. Ora Nam Work Phone: [facility] Work Phone: 05-31-2022 10:01-0400 Body mass index (BMI) [Ratio] 49 kg/m2 Dr. Ora Nam Work Phone: [facility] Work Phone: 05-31-2022 10:01-0400 Body temperature 98.3 [degF] Dr. Ora Nam Work Phone: [facility] Work Phone: 05-31-2022 10:01-0400 Body weight 121.[address] Ora Nam Work Phone: [facility] Work Phone: 05-31-2022 10:01-0400 Diastolic blood pressure 78 mm[Hg] Dr. Ora Nam Work Phone: [facility] Work Phone: 05-31-2022 10:01-0400 Heart rate 76 /min Dr. Ora Nam Work Phone: [facility] Work Phone: 05-31-2022 10:01-0400 Respiratory rate 18 /min Dr. Ora Nam Work Phone: [facility] Work Phone: 05-31-2022 10:01-0400 SaO2% (BldA) [Mass fraction] 98 % Dr. Ora Nam Work Phone: [facility] Work Phone: 05-31-2022 10:01-0400 Systolic blood pressure 132 mm[Hg] Dr. Ora Nam Work Phone: [facility] Work Phone: 05-11-2017 13:33-0400 BMI (Body Mass Index) 43.89 kg/m2 [facility] Work Phone: 05-11-2017 13:33-0400 BP Diastolic 70 mm[Hg] [facility] Work Phone: 05-11-2017 13:33-0400 BP Systolic 122 mm[Hg] [facility] Work Phone: 05-11-2017 13:33-0400 Height 157.48 cm [facility] Work Phone: 05-11-2017 13:33-0400 Pulse (Heart Rate) 76 /min [facility] Work Phone: 05-11-2017 13:33-0400 Respiratory Rate 16 /min [facility] Work Phone: 05-11-2017 13:33-0400 Weight 108.86 kg [facility] Work Phone: 10-04-2016 09:23-0500 BSA (Body Surface Area) 2.11 m2 [facility] Work Phone: 09-15-2015 15:29-0500 Heart rate 73 /min [facility] Work Phone: 08-14-2015 13:34-0400 Height 157.48 cm [facility] Work Phone: Encounters Encounter Date Encounter Type Care Provider Facility Start: 09-05-2025 End: 09-05-2025 ambulatory [facility] Facility:[facility] Start: 08-27-2025 End: 08-28-2025 ambulatory [facility] Facility:[facility] Start: 08-15-2025 ambulatory [facility] Facility :[facility] Start: 08-15-2025 Registered Referred Gabrielle OMALLEY -Cardiovascular Services Work Phone: Start: 08-14-2025 End: 08-14-[address] Ora Nam MD -Ultrasound [facility] Work Phone: Start: 08-14-2025 End: 08-14-[address] Ora Nam MD -[facility] Work Phone: Start: 08-14-2025 End: 08-14-[address] Ora Nam MD Work Phone: -[facility] Start: 08-14-2025 End: 08-14-2025 ambulatory Ora Nam Facility:[facility] Start: 08-07-2025 End: 08-07-[address] Elen Alonzo MD -[facility] Work Phone: Start: 08-07-2025 End: 08-07-[address] Ora Nam MD Work Phone: -[facility] Start: 08-07-2025 End: 08-07-2025 Patient encounter procedure Gabrielle OMALLEY -[facility] Work Phone: Start: 08-07-2025 End: 08-07-[address] Oar Nam MD Work Phone: -[facility] Start: 08-06-2025 ambulatory REE FLETCHER Facility:[facility] Start: 08-05-2025 End: 08-05-[address] Ora Nam MD -[facility] Work Phone: Start: 08-05-2025 End: 08-05-2025 ambulatory [facility] Facility:[facility] Start: 07-31-2025 Non-patient / Non-visit Dr. Arun zamarripa MD -[facility] Start: 07-31-2025 End: 07-31-[address] Ora Nam MD Work Phone: -Cardiovascular Services Start: 07-31-2025 End: 07-31-2025 Patient encounter procedure Mary OMALLEY -Cardiovascular Services Work Phone: Start: 07-31-2025 End: 07-31-2025 ambulatory [facility] Facility:[facility] Start: 07-05-2025 End: 07-05-2025 Telephone encounter Ree Fletcher MD Work Phone: OB/Gynecology Comment on above: Orders Start: 04-30-2025 Non-patient / Non-visit Dr. Elen muñoz MD -[facility] Work Phone: Start: 02-20-2025 ambulatory Ora Mayerner Facility :[facility] Start: 12-12-2024 End: 12-25-2024 Telephone encounter Ree Fletcher MD Work Phone: OB/Gynecology Comment on above: Insurance Authorizat ion Start: 10-23-2024 ambulatory [facility] :[facility] Start: 10-17-2024 End: 10-17-2024 ambulatory [facility] Start: 10-12-2024 End: 10-12-2024 Telephone encounter Ree Fletcher MD Work Phone: OB/Gynecology Comment on above: Orders (Diagnostic M ammogram) Start: 10-12-2024 End: 10-12-2024 ambulatory Ora Nam Facility:[facility] Start: 10-11-2024 End: 10-11-2024 Telephone encounter Elizabeth Dobbins RN Mammography Comment on above: Results Start: 10-10-2024 End: 10-10-2024 ambulatory SHARMIN HERNADEZ Facility:[facility] Start: 09-19-2024 End: 09-19-2024 ambulatory RACHELL BARTHOLOMEW Facility:[facility] Start: 09-19-2024 End: 09-19-2024 Subsequent hospital visit by physician Diagnostic Mammo [facility] Start: 08-31-2024 End: 08-31-2024 Telephone encounter Katherine Lewis MD Work Phone: Mammography Comment on above: Mammogram Result Hardy l Back Start: 08-28-2024 End: 08-28-2024 Orders Only Rachell Bartholomew MD Work Phone: Mammogram Comment on above: Abnormal mammogram ( Primary Dx) Start: 08-27-2024 End: 08-27-2024 Patient encounter procedure Ree Fletcher MD Work Phone: OB/Gynecology Comment on above: Encounter for gyneco logical examination (general) (routine) without abnormal findings (Primary Dx); Encounter for screening mammogram for malignant neoplasm of breast Start: 08-27-2024 End: 08-27-2024 Patient encounter status Ree Fletcher MD Work Phone: [facility] Start: 08-27-2024 End: 08-27-2024 Subsequent hospital visit by physician Screen Mammo [facility] Mammogram Comment on above: Encounter for screen ing mammogram for malignant neoplasm of breast [Z12.31] Start: 07-30-2024 End: 07-30-2024 Telephone encounter Ree Fletcher MD Work Phone: OB/Gynecology Comment on above: Orders Start: 02-17-2024 Refill Ree Barclay Work Phone: OB/Gynecology Comment on above: Med Change Request Start: 02-17-2024 Telephone encounter Ree mei MD Work Phone: OB/Gynecology Comment on above: Insurance Authorizat ion Start: 02-16-2024 Refill Ree Barclay Work Phone: OB/Gynecology Comment on above: Refill Request Start: 02-16-2024 Refill Ree Barclay Work Phone: OB/Gynecology Comment on above: Refill Request Start: 10-21-2023 End: 10-21-[address] Ora Nam Work Phone: [facility] Work Phone: Start: 10-21-2023 End: 10-21-[address] Ora Nam Work Phone: [facility]Laboratory Work Phone: Start: 10-20-2023 End: 10-20-[address] Ora Nam Work Phone: [facility] Work Phone: Start: 10-07-2023 End: 10-07-[address] Ora Nam Work Phone: [facility] Work Phone: Start: 10-07-2023 End: 10-07-[address] Ora Nam Work Phone: [facility]-Radiology, [facility] Work Phone: Start: 08-08-2023 Non-patient / Non-visit Dr. Gisel Nam Work Phone: [facility] Work Phone: Start: 08-05-2023 Non-patient / Non-visit Dr. Gisel Nam Work Phone: [facility] Start: 08-05-2023 End: 08-05-[address] Ora Nam Work Phone: [facility] Work Phone: Start: 08-05-2023 End: 08-05-[address] Ora Nam Work Phone: [facility] Work Phone: Start: 07-20-2023 End: 07-20-[address] Ora Nam Work Phone: [facility] Work Phone: Start: 07-20-2023 End: 07-20-[address] Ora Nam Work Phone: [facility] Work Phone: Start: 07-20-2023 End: 07-20-[address] Ora Nam Work Phone: [facility] Work Phone: Start: 07-07-2023 End: 07-07-[address] Ora Nam Work Phone: [facility] Endocrinology Work Phone: Start: 07-06-2023 End: 07-06-[address] Ora Nam Work Phone: [facility] Work Phone: Start: 07-06-2023 End: 07-06-[address] Ora Nam Work Phone: [facility] Work Phone: Start: 05-02-2023 End: 05-02-[address] Ora Nam Work Phone: [facility] Work Phone: Start: 05-02-2023 End: 05-02-[address] Ora Nam Work Phone: [facility]atory, [place] Work Phone: Start: 05-02-2023 End: 05-02-2023 Patient encounter procedure Braeden Todd Work Phone: Podiatry Comment on above: Onychocryptosis (Pascale toshia Dx); Controlled type 2 diabetes mellitus without complication, without long-term current use of insulin ([facility]); Diminished pulses in lower extremity; Pyogenic granuloma; BMI 45.0-49.9, adult ([facility]) Start: 04-11-2023 End: 04-11-[address] Ora Nam Work Phone: [facility] Work Phone: Start: 04-05-2023 End: 04-05-2023 Admission to same day surgery center Dr. Ora Nam Work Phone: [facility]-Date Night Sitter/Special Procedures Start: 04-05-2023 End: 04-05-[address] Ora Nam Work Phone: [facility] Work Phone: Start: 03-29-2023 End: 03-29-[address] Ora Nam Work Phone: [facility] Start: 03-21-2023 End: 03-21-[address] Ora Nam Work Phone: [facility] Start: 03-17-2023 Non-patient / Non-visit Dr. Gisel Nam Work Phone: [facility] Start: 03-17-2023 End: 03-17-[address] Ora Nam Work Phone: [facility] Start: 03-11-2023 Documentation procedure Mammog tyrone Coordinator [facility] Start: 03-11-2023 Letter encounter Mammography Coordinator [facility] Department Start: 03-10-2023 End: 03-10-2023 Subsequent hospital visit by physician Screen Mammo [facility] Mammogram Comment on above: Encounter for screen ing mammogram for malignant neoplasm of breast [Z12.31] Start: 03-09-2023 Non-patient / Non-visit Dr. Gisel Nam Work Phone: [facility] Start: 03-09-2023 End: 03-09-[address] Ora Nam Work Phone: [facility] Work Phone: Start: 03-09-2023 End: 03-09-[address] Ora Nam Work Phone: [facility] Start: 02-01-2023 End: 02-01-[address] Ora Nam Work Phone: [facility] Work Phone: Start: 02-01-2023 End: 02-01-[address] Ora Nam Work Phone: [facility], [facility] Start: 01-12-2023 End: 01-12-[address] Ora Nam Work Phone: [facility] Start: 01-04-2023 Telephone encounter Angelica dougherty MD Work Phone: OB/Gynecology Comment on above: Orders Start: 12-14-2022 Refill Ree Barclay Work Phone: OB/Gynecology Comment on above: Refill Request Start: 12-12-2022 End: 12-12-2022 Emergency department patient visit Dr. Ora Nam Work Phone: [facility]-Emergency Department Start: 11-25-2022 End: 11-25-[address] Ora Nam Work Phone: [facility] Start: 10-27-2022 Non-patient / Non-visit Dr. Gisel Nam Work Phone: [facility] Start: 10-27-2022 End: 10-27-[address] Ora Nam Work Phone: [facility] Work Phone: Start: 10-27-2022 End: 10-27-[address] Ora Nam Work Phone: [facility] Start: 10-18-2022 End: 10-18-[address] Ora Nam Work Phone: [facility] Start: 10-14-2022 End: 10-14-[address] Ora Nam Work Phone: [facility] Start: 10-04-2022 End: 10-04-[address] Ora Nam Work Phone: [facility] Start: 09-30-2022 End: 09-30-[address] Ora Nam Work Phone: [facility] Start: 09-21-2022 Non-patient / Non-visit Dr. Gisel Nam Work Phone: [facility] Start: 09-20-2022 Non-patient / Non-visit Dr. Gisel Nam Work Phone: [facility] Start: 09-20-2022 End: 09-21-2022 Evaluation and management of inpatient Dr. Ora Nam Work Phone: [facility]-Medical Surgical 3 Start: 09-16-2022 End: 09-16-[address] Ora Nam Work Phone: [facility] [place] Start: 09-10-2022 End: 09-10-2022 Non-patient / Non-visit Dr. Ora Nam Work Phone: [facility] Start: 07-30-2022 End: 07-30-[address] Ora Nam Work Phone: [facility] [place] Start: 07-12-2022 Non-patient / Non-visit Dr. Gisel Nam Work Phone: [facility] Start: 07-12-2022 End: 07-12-[address] Ora Nam Work Phone: [facility] Start: 07-12-2022 End: 07-12-[address] Ora Nam Work Phone: [facility] Work Phone: Start: 07-12-2022 End: 07-12-[address] Ora Nam Work Phone: [facility] [place] Start: 07-09-2022 End: 07-09-[address] Ora Nam Work Phone: [facility] Start: 06-23-2022 End: 06-23-[address] Ora Nam Work Phone: [facility] Start: 06-17-2022 End: 06-17-[address] Ora Nam Work Phone: [facility] Start: 06-14-2022 End: 06-14-[address] Ora Nam Work Phone: [facility] Start: 06-09-2022 Non-patient / Non-visit Dr. Gisel Nam Work Phone: [facility] Start: 06-09-2022 End: 06-09-[address] Ora Nam Work Phone: [facility] Start: 06-02-2022 Refill Ree Barclay Work Phone: OB/Gynecology Comment on above: Refill Request Start: 06-01-2022 Telephone encounter Ree mei MD Work Phone: OB/Gynecology Comment on above: Medication Problem Start: 05-31-2022 End: 05-31-[address] Ora Nam Work Phone: [facility] Start: 05-27-2022 End: 05-27-[address] Ora Nam Work Phone: [facility] Start: 02-09-2022 Telephone encounter Nela panchal [facility] Work Phone: [facility] Comment on above: Results (genetic arsenio ting ) Start: 01-25-2022 End: 01-25-2022 Patient encounter procedure Nela Steele [facility] Work Phone: [facility] Comment on above: Family history of pa ncreatic cancer (Primary Dx); Thyroid cancer (HCC); Family history of cancer Procedures Date Procedure Procedure Detail Performing Clinician Start: 08-14-[address] Ora Nam MD Work Phone: Start: 08-05-2025 Vitamin D, 25-hydrox y measurement Dr. Ora Nam MD Work Phone: Comment on above: Vitamin D StatusDefi ciency: <20 ng/mL (50nmol/L)Insufficiency: 20-30 ng/mL (50-75 nmol/L)Sufficiency: 30-100 ng/mL (75-250 nmol/L)Toxicity: >100 ng/mL (>250 nmol/L) Start: 09-19-2024 Digital breast tomos ynthesis unilateral Rachell L Ganesh MD Work Phone: Start: 10-07-2023 Plain chest X-ray Dr. Janis Nam Work Phone: Start: 03-17-2023 Cardiovascular stres s test using pharmacologic stress agent Dr. Ora Nam Work Phone: Start: 03-10-2023 End: 03-10-2023 Mammography Angelica Esqueda MD Work Phone: Start: 12-12-2022 Plain chest X-ray Dr. Janis Nam Work Phone: Start: 09-20-[address] Ora Nam Work Phone: Start: 07-09-2022 X-ray of both feet Dr. Ora Nam Work Phone: Start: 06-17-2022 CT angiography of ne ck vessels Dr. Ora Nam Work Phone: Start: 07-20-2021 Mammography Nela panchal [facility] Work Phone: Start: 03-28-2018 Colonoscopy Nela panchal [facility] Work Phone: Start: 06-28-2017 Adult depression scr eening assessment Nela Steele [facility] Work Phone: Start: 05-11-2017 End: 05-11-2017 Dietary management education, guidance, and counseling Jacki Cristobal Start: 05-11-2017 End: 05-11-2017 Follow Up Appt 6 months Hernesto Brar MD Start: 05-11-2017 End: 05-11-2017 PFM Hernesto Brar MD Start: 10-04-2016 End: 10-20-2016 Echocardiography Hernesto Brar MD Start: 10-04-2016 End: 10-04-2016 Follow Up Appt 6 months Hernesto Brar MD Start: 10-04-2016 End: 10-04-2016 PFM Hernesto Brar MD Start: 03-31-2016 End: 03-31-2016 Follow Up Appt 6 months Hernesto Brar MD Start: 03-31-2016 End: 05-19-2016 Follow Up BP Check Hernesto Brar MD Start: 03-31-2016 End: 03-31-2016 PFM Hernesto Brar MD Start: 10-03-2015 End: 10-03-2015 *BMP Hernesto Brar MD Start: 09-15-2015 End: 09-29-2015 *BMP Hernesto Brar MD Start: 09-15-2015 End: 09-29-2015 *CBC with Differential Hernesto Brar MD Start: 09-15-2015 End: 09-29-2015 aPTT Hernesto Brar MD Start: 09-15-2015 End: 09-29-2015 Coagulation factor induced.INR assay in platelet poor plasma Hernesto Brar MD Start: 09-15-2015 End: 09-15-2015 Electrocardiogram, complete Hernesto pineda MD Start: 09-15-2015 End: 09-15-2015 Follow Up Appt 6 months Hernesto Brar MD Start: 09-15-2015 End: 10-01-2015 Left Heart Cath Hernesto Brar MD Start: 09-15-2015 End: 09-15-2015 PFM Hernesto Brar MD Start: 08-25-2015 End: 05-06-2017 Neurology Referral Hernesto Brar MD Start: 08-14-2015 End: 08-15-2015 Documentation of current medications Hernesto Brar MD Start: 08-14-2015 End: 05-06-2017 Echocardiography Hernesto Brar MD Start: 08-14-2015 End: 08-14-2015 Follow Up Appt 6 weeks Hernesto Brar MD Start: 08-14-2015 End: 05-06-2017 Follow Up Appt Other Hernesto Brar MD Start: 08-14-2015 End: 08-14-2015 PFM Hernesto Brar MD Plan of Treatment Date Care Activity Detail Author Start: 03-28-2028 Colonoscopy COLONOSCOPY [facility] Start: 03-28-2028 COLORECTAL CANCER SCREENING COLORECTAL CANCER SCREENING [facility] Start: 03-28-2028 Screening for malignant neoplasm of colon [facility] Start: 10-21-2026 Urine microalbumin profile [facility] Start: 09-05-2025 End: 09-05-2025 Patient encounter procedure 09/05/2025 8:40 AM EST Office Visit OB/Gynecology [address] [place] [id number] Ree Fletcher MD [address] [place] [address] annual / review gina & u/s results OB/Gynecology Comment on above: annual / review gina & u/s results Start: 08-28-2025 End: 08-28-2025 Patient encounter procedure 08/28/2025 1:30 PM EDT Appointment Mammogram [address] [place] [address] Encounter for screening mammogram for malignant neoplasm of breast [Z12.31] Mammogram Comment on above: Encounter for screening mammogram for ma lignant neoplasm of breast [Z12.31] Start: 08-27-2025 BP Controlled (<130/80) BP Controlled (<130/80) [facility] Start: 08-27-2025 Screening for malignant neoplasm of breast Mammogram Screening [facility] Start: 08-07-2025 Cardiac event recording [facility] Start: 08-07-2025 End: 08-07-2025 Evaluation of diagnostic study results [facility] Start: 08-06-2025 End: 08-06-2025 Patient encounter procedure Mammogram Comment on above: Comp- RT 6 month f/u post bx due for walter at Category 3 mammograp hy result with short follow-up interval suggested for probably benign finding [R92.8] Start: 08-05-2025 Vitamin D, 25-hydroxy measurement [facility] Start: 07-01-2025 Influenza vaccination Influenza Vaccine (#1) [facility] Start: 04-16-2025 End: 04-16-2025 Patient encounter procedure Mammogram Comment on above: Category 3 mammography result with short follow-up interval suggested for probably benign finding [R92.8] Start: 10-31-2024 Advance Directive Discussion Advance Directive Discussion [facility] Start: 10-10-2024 End: 10-10-2024 Patient encounter procedure 10/10/2024 2:30 PM EST Appointment Mammography [address] [id number] RIGHT BREAST Mammography Comment on above: RIGHT BREAST Start: 09-19-2024 End: 09-19-2024 Patient encounter procedure 09/19/2024 1:30 PM EST Appointment Mammogram [address] [place] [address] right breast callback Mammogram Comment on above: right breast callback Start: 08-27-2024 End: 08-27-2024 Patient encounter procedure Mammogram Comment on above: Encounter for screening mammogram for ma lignant neoplasm of breast [Z12.31 Annual Start: 07-01-2024 Covid-19 Vaccine ( season) Covid-19 Vaccine ( season) [facility] Start: 07-01-2024 Influenza vaccination [facility] Start: 03-10-2024 Mammography [facility] Start: 03-10-2024 Screening for malignant neoplasm of breast Mammogram Screening [facility] Start: 10-31-2023 Advance Directive Discussion Advance Directive Discussion [facility] Start: 10-31-2023 Behavioral Health Screening Behavioral Health Screening [facility] Start: 09-01-2023 Covid-19 Vaccine ( season) Covid-19 Vaccine ( season) [facility] Start: 07-01-2023 Influenza vaccination [facility] Start: 10-31-2022 ADVANCE DIRECTIVE DISCUSSION ADVANCE DIRECTIVE DISCUSSION [facility] Start: 10-31-2022 DEPRESSION ASSESSMENT DEPRESSION ASSESSMENT [facility] Start: 09-21-2022 Patient discharge [facility] Start: 09-20-2022 Following clinical pathway protocol [facility] Start: 09-20-2022 Deep breathing and coughing exercises [facility] Start: 09-20-2022 Elevation of head of bed [facility] Start: 09-20-2022 Incentive spirometry [facility] Start: 09-20-2022 Notification of physician [facility] Start: 09-20-2022 Provision of activity privileges [facility] Start: 09-20-2022 Vital signs measurements [facility] Start: 09-20-2022 [facility] Start: 09-20-2022 Admission procedure [facility] Start: 07-20-2022 Mammography MAMMOGRAM [facility] Start: 07-01-2022 Influenza vaccination [facility] Start: 01-25-2022 End: 03-27-2022 [facility] Work Phone: Comment on above: Expected: 01/25/2022, Expires: 2 Start: 10-31-2021 ADVANCE DIRECTIVE DISCUSSION ADVANCE DIRECTIVE DISCUSSION [facility] Start: 07-01-2021 Influenza vaccination INFLUENZA (#1) [facility] Start: 06-25-2021 COVID-19 VACCINE (2 - Booster for Sarina series) COVID-19 VACCINE (2 - Booster for Sarina series) [facility] Start: 06-19-2021 Hepatitis B screening URINE ALBUMIN:CREATININE RATIO [facility] Start: 06-19-2021 Hepatitis B surface antibody level LDL CHOLESTEROL [facility] Start: 12-20-2020 Hemoglobin A1c measurement HbA1C [facility] Start: 12-20-2020 Hemoglobin A1c/Hemoglobin.total in Blood HBA1C [facility] Start: 10-19-2020 ANNUAL PCP TEAM CHRONIC DISEASE VISIT ANNUAL PCP TEAM CHRONIC DISEASE VISIT [facility] Start: 07-20-2020 3 comp foot exam completed DIABETIC FOOT EXAM [facility] Start: 07-20-2020 Diabetic foot examination Diabetic Foot Exam [facility] Start: 04-03-2020 Glaucoma screening Dilated Retinal Exam [facility] Start: 04-03-2020 Hepatitis C antibody, confirmatory test DILATED RETINAL EXAM [facility] Start: 06-28-2018 Adult depression screening assessment DEPRESSION SCREENING [facility] Start: 10-27-2017 FECAL OCCULT BLOOD FECAL OCCULT BLOOD [facility] Start: 10-27-2017 Screening for malignant neoplasm of colon Fecal Occult Blood [facility] Start: 10-13-2017 End: 10-13-2017 Appointment [facility] Work Phone: Start: 05-11-2017 End: 05-11-2017 Follow Up Appt 6 months Follow Up Appt 6 months [facility] Work Phone: Start: 05-11-2017 End: 05-11-2017 PFM PFM [facility] Work Phone: Start: 10-04-2016 End: 10-04-2016 Echocardiography Echocardiogram (complete) [facility] Work Phone: Start: 10-04-2016 End: 10-04-2016 Follow Up Appt 6 months Follow Up Appt 6 months [facility] Work Phone: Start: 10-04-2016 End: 10-04-2016 PFM PFM [facility] Work Phone: Start: 07-31-2016 Medicare Annual Wellness Visit Medicare Annual Wellness Visit [facility] Start: 03-31-2016 End: 03-31-2016 Follow Up Appt 6 months Follow Up Appt 6 months [facility] Work Phone: Start: 03-31-2016 End: 05-19-2016 Follow Up BP Check Follow Up BP Check [facility] Work Phone: Start: 03-31-2016 End: 03-31-2016 PFM PFM [facility] Work Phone: Start: 10-03-2015 End: 10-03-2015 *BMP *BMP [facility] Work Phone: Start: 09-15-2015 End: 09-29-2015 *BMP *BMP [facility] Work Phone: Start: 09-15-2015 End: 09-29-2015 *CBC with Differential *CBC with Differential [facility] Work Phone: Start: 09-15-2015 End: 09-29-2015 aPTT *PTT-Partial Thromboplastin Time [facility] Work Phone: Start: 09-15-2015 End: 09-29-2015 aPTT Coag time (PPP) *PTT-Partial Thromboplastin Time [facility] Work Phone: Start: 09-15-2015 End: 09-29-2015 Coagulation factor induced.INR assay in platelet poor plasma *PT/INR [facility] Work Phone: Start: 09-15-2015 End: 09-15-2015 Electrocardiogram, complete EKG (In office) [facility] Work Phone: Start: 09-15-2015 End: 09-15-2015 Follow Up Appt 6 months Follow Up Appt 6 months [facility] Work Phone: Start: 09-15-2015 End: 09-15-2015 Left Heart Cath Left Heart Cath [facility] Work Phone: Start: 09-15-2015 End: 09-15-2015 PFM PFM [facility] Work Phone: Start: 08-25-2015 End: 08-25-2015 Neurology Referral Neurology Referral Kj Sarkar, [address], [place], [address] [facility] Work Phone: Start: 08-14-2015 End: 08-14-2015 Echocardiography Echocardiogram (complete) [facility] Work Phone: Start: 08-14-2015 End: 08-14-2015 Follow Up Appt 6 weeks Follow Up Appt 6 weeks [facility] Work Phone: Start: 08-14-2015 End: 05-06-2017 Follow Up Appt Other Follow Up Appt Other [facility] Work Phone: Start: 08-14-2015 End: 08-14-2015 PFM PFM [facility] Work Phone: Start: 2011 Hepatitis B Vaccine (1 of 3 - Risk 3-dose series) Hepatitis B Vaccine (1 of 3 - Risk 3-dose series) [facility] Start: 2011 RSV Vaccine (1 - 1-dose 60+ series) RSV Vaccine (1 - 1-dose 60+ series) [facility] Start: 2011 RSV Vaccine (1 - Risk 60-74 years 1-dose series) RSV Vaccine (1 - Risk 60-74 years 1-dose series) [facility] Start: 2001 SHINGRIX VACCINE (1 of 2) SHINGRIX VACCINE (1 of 2) [facility] Start: 1996 COLOGUARD (FIT-DNA) COLOGUARD (FIT-DNA) [facility] Start: [address] COLONOGRAPHY [facility] Start: 1996 Screening for malignant neoplasm of colon [facility] Start: 1996 SIGMOIDOSCOPY SIGMOIDOSCOPY [facility] Start: 1969 ANNUAL PCP TEAM CHRONIC DISEASE VISIT ANNUAL PCP TEAM CHRONIC DISEASE VISIT [facility] Start: 1969 Anxiety Screening Anxiety Screening [facility] Start: 1969 BP CONTROLLED (<130/80) BP CONTROLLED (<130/80) [facility] Start: 1969 Depression Screening Depression Screening [facility] Alanine aminotransfe rase [Enzymatic activity/volume] in Serum or Plasma [facility] Albumin [Mass/volume ] in Serum or Plasma [facility] Alkaline phosphatase [Enzymatic activity/volume] in Serum or Plasma [facility] Anion gap in Serum o r Plasma [facility] Bilirubin, total measurement [facility] BUN/Creatinine ratio [facility] Calcium [Mass/volume ] in Serum or Plasma [facility] Carbon dioxide, tota l [Moles/volume] in Central venous blood [facility] CBC W Auto Different ial panel - Blood [facility] Work Phone: CBC W Auto Different ial panel - Blood [facility] Cholesterol [Mass/vo lume] in Serum or Plasma [facility] Cholesterol in HDL [Mass/volume] in Serum or Plasma [facility] Creatinine [Mass/vol ume] in Serum or Plasma [facility] CTA Neck vessels WO and W contrast IV [facility] Work Phone: End: 08-29-2025 DBT Breast - bilateral screening GINA SCREENING [facility] Routine Encounter for screening mammogram for malignant neoplasm of breast 1 Occurrences starting 07/30/2024 until 08/29/2025 [facility] Work Phone: Comment on above: 1 Occurrences starting 07/30/2024 until 08/29/2025 End: 09-26-2025 DBT Breast - bilateral screening GINA SCREENING [facility] Routine Encounter for screening mammogram for malignant neoplasm of breast 1 Occurrences starting 08/27/2024 until 09/26/2025 [facility] Work Phone: Comment on above: 1 Occurrences starting 08/27/2024 until 09/26/2025 DBT Breast - bilater al screening GINA SCREENING [facility] Routine Encounter for screening mammogram for malignant neoplasm of breast 08/27/2024 1:43 PM EDT [facility] Work Phone: Erythrocyte mean corpuscular volume determination [facility] Glucose [Mass/volume ] in Serum or Plasma [facility] Hematocrit [Volume Fraction] of Blood [facility] Hemoglobin [Mass/vol ume] in Blood [facility] Hemoglobin A1c/Hemoglobin.total in Blood [facility] Work Phone: Hemoglobin A1c/Hemoglobin.total in Blood [facility] Hemoglobin A1c/Hemoglobin.total in Blood [facility] Leukocytes [#/volume ] in Blood [facility] Lipid 1996 panel - S [facility] or Plasma [facility] Work Phone: Lipid 1996 panel - S [facility] or Plasma [facility] Lipid 1995 panel - S [facility] or Plasma [facility] Low density lipoprot ein cholesterol measurement [facility] Magnesium measurement [facility] End: 02-03-2024 GINA SCREENING [facility] GINA SCREENING [facility] Radiology Routine Encounter for screening mammogram for malignant neoplasm of breast 1 Occurrences starting 01/04/2023 until 02/03/2024 [facility] Work Phone: Comment on above: 1 Occurrences starting 01/04/2023 until 02/03/2024 Mean corpuscular hemoglobin concentration determination [facility] Mean corpuscular hemoglobin determination [facility] Measurement of renal function [facility] [facility]: 08-04-2026 MG Breast - bilateral Diagnostic GINA DIAGNOSTIC BILATERAL Radiology Routine Category 3 mammography result with short follow-up interval suggested for probably benign finding 1 Occurrences starting 07/05/2025 until 08/04/2026 [facility] Work Phone: Comment on above: 1 Occurrences starting 07/05/2025 until 08/04/2026 End: 09-27-2025 MG Breast - right Diagnostic for implant GINA DIAGNOSTIC RIGHT Radiology Routine Abnormal mammogram 1 Occurrences starting 08/28/2024 until 09/27/2025 [facility] Work Phone: Comment on above: 1 Occurrences starting 08/28/2024 until 09/27/2025 End: 11-11-2025 MG Breast - right Diagnostic for implant GINA DIAGNOSTIC RIGHT Radiology Routine Category 3 mammography result with short follow-up interval suggested for probably benign finding 1 Occurrences starting 10/12/2024 until 11/11/2025 [facility] Work Phone: Comment on above: 1 Occurrences starting 10/12/2024 until 11/11/2025 Neutrophil count [facility] Neutrophil percent differential count [facility] NM Heart Views W str ess and W radionuclide IV [facility] Work Phone: NM Heart Views W str ess and W radionuclide IV [facility] Patient Education Coronavirus Di sheri 2019 (COVID-19): Caring for Yourself or Others [facility] Work Phone: Patient referral [facility] Work Phone: Platelets [#/volume] in Blood [facility] Potassium measurement [facility] End: 05-02-2024 PVR ANK [facility]ESS [facility]K [facility] Vascular Lab Routine Onychocryptosis Controlled type 2 diabetes mellitus without complication, without long-term current use of insulin (HCC) Diminished pulses in lower extremity 1 Occurrences starting 05/02/2023 until 05/02/2024 [facility] Work Phone: Comment on above: 1 Occurrences starting 05/02/2023 until 05/02/2024 Red blood cell count [facility] Red cell distributio n width determination [facility] Serum chloride measurement [facility] Sodium measurement [facility] T4 free measurement [facility] Work Phone: T4 free measurement [facility] T4 free measurement [facility] Thyroglobulin and Thyrogobulin Ab panel - Serum or Plasma [facility] Work Phone: Thyroglobulin and Thyrogobulin Ab panel - Serum or Plasma [facility] Thyroid stimulating hormone measurement [facility] Work Phone: Thyroid stimulating hormone measurement [facility] Thyroid stimulating hormone measurement [facility] Thyroid stimulating hormone measurement [facility] Total cholesterol:HD L ratio measurement [facility] Total protein measurement [facility] Triglycerides measurement [facility] Triiodothyronine, fr ee measurement [facility] Work Phone: Triiodothyronine, fr ee measurement [facility] Triiodothyronine, fr ee measurement [facility] Urea nitrogen [Mass/volume] in Serum or Plasma [facility] End: 09-27-2025 US Breast - right limited US BREAST LTD RIGHT Radiology Routine Abnormal mammogram 1 Occurrences starting 08/28/2024 until 09/27/2025 [facility] Comment on above: 1 Occurrences starting 08/28/2024 until 09/27/2025 End: 11-11-2025 US Breast - right limited US BREAST LTD RIGHT Radiology Routine Category 3 mammography result with short follow-up interval suggested for probably benign finding 1 Occurrences starting 10/12/2024 until 11/11/2025 [facility] Comment on above: 1 Occurrences starting 10/12/2024 until 11/11/2025 US Carotid arteries [facility] Work Phone: US Carotid arteries [facility] US Heart [facility] Vitamin D, 25-hydrox y measurement [facility] Work Phone: Vitamin D, 25-hydrox y measurement [facility] VLDL cholesterol measurement [facility] Immunizations Immunization Date Immunization Notes Care Provider Roxana thomas 09-18-2018 influenza virus vacc ine, unspecified formulation Screen Wstr [facility] 10-21-2016 tetanus toxoid, redu reese diphtheria toxoid, and acellular pertussis vaccine, adsorbed [facility] Work Phone: [facility] Work Phone: 09-25-2013 influenza virus vacc ine, unspecified formulation [facility] Work Phone: [facility] 03-29-2007 pneumococcal polysaccharide vaccine, 23 valent [facility] Work Phone: [facility] 10-28-2003 tetanus and diphther ia toxoids, adsorbed, preservative free, for adult use (2 Lf of tetanus toxoid and 2 Lf of diphtheria toxoid) [facility] Work Phone: [facility] Work Phone: Payers Date Payer Category Payer Self-pay [id number] 2019 Private Health Insurance MMO MED ICARE SUPPLEMENT [id number] 2019 Unknown MMO MMO MEDICARE SUPPLEMENT [id number] 2019-Present [phone] [address] [place] [address] Indemnity [id number] 2019 Unknown MMO MMO MEDICARE SUPPLEMENT [id number] 2019-Present [phone] [address] [place] [address] Indemnity [id number] 2019 Unknown [id number] 2016 Medicare MEDICARE MEDICAR E A AND B [id number] 2016-Present [phone] [address] [address] [place] [address] Medicare [id number] 2016 Medicare [id number] 2016 Medicare [id number] Unknown [id number]. 462 Unknown [id number] [id number]. 462 Unknown [id number]. 462 Unknown [id number] [id number]. 462 Unknown [id number] [id number]. 462 Unknown [id number] [id number]. 462 Unknown [id number]. 462 Unknown [id number] [id number]. 462 Unknown [id number] [id number]. 462 Unknown [id number] [id number]. 462 Unknown [id number] [id number]. 462 Unknown [id number] [id number]. 462 Unknown [id number]. 462 Unknown [id number] 462 Social History Date Type Detail Facility Start: 03-20-2012 End: 09-06-2024 Tobacco smoking status WVIS Never smoked tobacco [facility] Start: 01-25-2022 End: 08-27-2024 Alcohol intake Ex-drinker (finding) [facility] Start: 1950 Sex Assigned At Female C [facility] Start: 12-23-2020 End: 10-20-2023 Tobacco smoking status WVIS Unknown if ever smoked [facility] Start: 12-22-2020 Non-smoker [facility] Start: 03-20-2012 End: 08-27-2024 Tobacco use and exposure Smokeless tobacco non-user [facility] Start: 01-25-2022 End: 08-27-2024 History of Social function [facility] Start: 01-25-2022 End: 08-27-2024 Tobacco use panel [facility] Start: 10-01-2012 National Score (1-100), lower number is lower risk Not on file [facility] Start: 06-24-2020 Gender identity Identifies as female gender (finding) [facility] Start: 06-24-2020 Sexual orientation Heterosexual (jean nj) [facility] Start: 08-27-2024 Tobacco Comment Father smoked in childhood home. ETS when visiting 2 sisters. [facility] NEGATED: Highlighted row [facility] Medical Equipment Procedure Code Equipment Code Equipment Origin al Text Equipment Identifier Dates Thyroidectomy DRESSING,FIBRILL AR 1X2 1960 FDA Start: 12-24-2020 Thyroidectomy SUTURE,LIGA CLIP MED LT200 FDA Start: 12-24-2020 Thyroidectomy SUTURE,LIGA CLIP SM LT-100 FDA Start: 12-24-2020 Thyroidectomy DRESSING,FIBRILL AR 1X2 1960 FDA Start: 12-24-2020 Thyroidectomy SUTURE,LIGA CLIP MED LT200 FDA Start: 12-24-2020 Thyroidectomy SUTURE,LIGA CLIP SM LT-100 FDA Start: 12-24-2020 Thyroidectomy DRESSING,FIBRILL AR 1X2 1960 FDA Start: 12-24-2020 Thyroidectomy SUTURE,LIGA CLIP MED LT200 FDA Start: 12-24-2020 Thyroidectomy SUTURE,LIGA CLIP SM LT-100 FDA Start: 12-24-2020 Thyroidectomy DRESSING,FIBRILL AR 1X2 1960 FDA Start: 12-24-2020 Thyroidectomy SUTURE,LIGA CLIP MED LT200 FDA Start: 12-24-2020 Thyroidectomy SUTURE,LIGA CLIP SM LT-100 FDA Start: 12-24-2020 Thyroidectomy DRESSING,FIBRILL AR 1X2 1960 FDA Start: 12-24-2020 Thyroidectomy SUTURE,LIGA CLIP MED LT200 FDA Start: 12-24-2020 Thyroidectomy SUTURE,LIGA CLIP SM LT-100 FDA Start: 12-24-2020 Thyroidectomy DRESSING,FIBRILL AR 1X2 1960 FDA Start: 12-24-2020 Thyroidectomy SUTURE,LIGA CLIP MED LT200 FDA Start: 12-24-2020 Thyroidectomy SUTURE,LIGA CLIP SM LT-100 FDA Start: 12-24-2020 Thyroidectomy DRESSING,FIBRILL AR 1X2 1960 FDA Start: 12-24-2020 Thyroidectomy SUTURE,LIGA CLIP MED LT200 FDA Start: 12-24-2020 Thyroidectomy SUTURE,LIGA CLIP SM LT-100 FDA Start: 12-24-2020 Thyroidectomy DRESSING,FIBRILL AR 1X2 1960 FDA Start: 12-24-2020 Thyroidectomy SUTURE,LIGA CLIP MED LT200 FDA Start: 12-24-2020 Thyroidectomy SUTURE,LIGA CLIP SM LT-100 FDA Start: 12-24-2020 Thyroidectomy DRESSING,FIBRILL AR 1X2 1960 FDA Start: 12-24-2020 Thyroidectomy SUTURE,LIGA CLIP MED LT200 FDA Start: 12-24-2020 Thyroidectomy SUTURE,LIGA CLIP SM LT-100 FDA Start: 12-24-2020 Thyroidectomy DRESSING,FIBRILL AR 1X2 1960 FDA Start: 12-24-2020 Thyroidectomy SUTURE,LIGA CLIP MED LT200 FDA Start: 12-24-2020 Thyroidectomy SUTURE,LIGA CLIP SM LT-100 FDA Start: 12-24-2020 Thyroidectomy DRESSING,FIBRILL AR 1X2 1960 FDA Start: 12-24-2020 Thyroidectomy SUTURE,LIGA CLIP MED LT200 FDA Start: 12-24-2020 Thyroidectomy SUTURE,LIGA CLIP SM LT-100 FDA Start: 12-24-2020 Thyroidectomy DRESSING,FIBRILL AR 1X2 1960 FDA Start: 12-24-2020 Thyroidectomy SUTURE,LIGA CLIP MED LT200 FDA Start: 12-24-2020 Thyroidectomy SUTURE,LIGA CLIP SM LT-100 FDA Start: 12-24-2020 Thyroidectomy DRESSING,FIBRILL AR 1X2 1960 FDA Start: 12-24-2020 Thyroidectomy SUTURE,LIGA CLIP MED LT200 FDA Start: 12-24-2020 Thyroidectomy SUTURE,LIGA CLIP SM LT-100 FDA Start: 12-24-2020 Thyroidectomy DRESSING,FIBRILL AR 1X2 1960 FDA Start: 12-24-2020 Thyroidectomy SUTURE,LIGA CLIP MED LT200 FDA Start: 12-24-2020 Thyroidectomy SUTURE,LIGA CLIP SM LT-100 FDA Start: 12-24-2020 Thyroidectomy DRESSING,FIBRILL AR 1X2 1960 FDA Start: 12-24-2020 Thyroidectomy SUTURE,LIGA CLIP MED LT200 FDA Start: 12-24-2020 Thyroidectomy SUTURE,LIGA CLIP SM LT-100 FDA Start: 12-24-2020 Thyroidectomy DRESSING,FIBRILL AR 1X2 1960 FDA Start: 12-24-2020 Thyroidectomy SUTURE,LIGA CLIP MED LT200 FDA Start: 12-24-2020 Thyroidectomy SUTURE,LIGA CLIP SM LT-100 FDA Start: 12-24-2020 Thyroidectomy DRESSING,FIBRILL AR 1X2 1960 FDA Start: 12-24-2020 Thyroidectomy SUTURE,LIGA CLIP MED LT200 FDA Start: 12-24-2020 Thyroidectomy SUTURE,LIGA CLIP SM LT-100 FDA Start: 12-24-2020 Thyroidectomy DRESSING,FIBRILL AR 1X2 1960 FDA Start: 12-24-2020 Thyroidectomy SUTURE,LIGA CLIP MED LT200 FDA Start: 12-24-2020 Thyroidectomy SUTURE,LIGA CLIP SM LT-100 FDA Start: 12-24-2020 Thyroidectomy DRESSING,FIBRILL AR 1X2 1960 FDA Start: 12-24-2020 Thyroidectomy SUTURE,LIGA CLIP MED LT200 FDA Start: 12-24-2020 Thyroidectomy SUTURE,LIGA CLIP SM LT-100 FDA Start: 12-24-2020 Endarterectomy, carotid DRESSING,SURGICEL 4x8 FDA Start: 09-20-2022 Endarterectomy, carotid PATCH,VASC .8CM X 8CM FDA Start: 09-20-2022 Endarterectomy, carotid SUTURE,LIGA CLIP MED LT200 FDA Start: 09-20-2022 Endarterectomy, carotid SUTURE,LIGA CLIP MED LT200 FDA Start: 09-20-2022 Endarterectomy, carotid SUTURE,LIGA CLIP SM LT-100 FDA Start: 09-20-2022 Endarterectomy, carotid SUTURE,LIGA CLIP SM LT-100 FDA Start: 09-20-2022 Endarterectomy, carotid SUTURE,LIGA CLIP SM LT-100 FDA Start: 09-20-2022 Endarterectomy, carotid DRESSING,SURGICEL 4x8 FDA Start: 09-20-2022 Endarterectomy, carotid PATCH,VASC .8CM X 8CM FDA Start: 09-20-2022 Endarterectomy, carotid SUTURE,LIGA CLIP MED LT200 FDA Start: 09-20-2022 Endarterectomy, carotid SUTURE,LIGA CLIP MED LT200 FDA Start: 09-20-2022 Endarterectomy, carotid SUTURE,LIGA CLIP SM LT-100 FDA Start: 09-20-2022 Endarterectomy, carotid SUTURE,LIGA CLIP SM LT-100 FDA Start: 09-20-2022 Endarterectomy, carotid SUTURE,LIGA CLIP SM LT-100 FDA Start: 09-20-2022 Endarterectomy, carotid DRESSING,SURGICEL 4x8 FDA Start: 09-20-2022 Endarterectomy, carotid PATCH,VASC .8CM X 8CM FDA Start: 09-20-2022 Endarterectomy, carotid SUTURE,LIGA CLIP MED LT200 FDA Start: 09-20-2022 Endarterectomy, carotid SUTURE,LIGA CLIP MED LT200 FDA Start: 09-20-2022 Endarterectomy, carotid SUTURE,LIGA CLIP SM LT-100 FDA Start: 09-20-2022 Endarterectomy, carotid SUTURE,LIGA CLIP SM LT-100 FDA Start: 09-20-2022 Endarterectomy, carotid SUTURE,LIGA CLIP SM LT-100 FDA Start: 09-20-2022 Endarterectomy, carotid DRESSING,SURGICEL 4x8 FDA Start: 09-20-2022 Endarterectomy, carotid PATCH,VASC .8CM X 8CM FDA Start: 09-20-2022 Endarterectomy, carotid SUTURE,LIGA CLIP MED LT200 FDA Start: 09-20-2022 Endarterectomy, carotid SUTURE,LIGA CLIP MED LT200 FDA Start: 09-20-2022 Endarterectomy, carotid SUTURE,LIGA CLIP SM LT-100 FDA Start: 09-20-2022 Endarterectomy, carotid SUTURE,LIGA CLIP SM LT-100 FDA Start: 09-20-2022 Endarterectomy, carotid SUTURE,LIGA CLIP SM LT-100 FDA Start: 09-20-2022 Endarterectomy, carotid DRESSING,SURGICEL 4x8 FDA Start: 09-20-2022 Endarterectomy, carotid PATCH,VASC .8CM X 8CM FDA Start: 09-20-2022 Endarterectomy, carotid SUTURE,LIGA CLIP MED LT200 FDA Start: 09-20-2022 Endarterectomy, carotid SUTURE,LIGA CLIP MED LT200 FDA Start: 09-20-2022 Endarterectomy, carotid SUTURE,LIGA CLIP SM LT-100 FDA Start: 09-20-2022 Endarterectomy, carotid SUTURE,LIGA CLIP SM LT-100 FDA Start: 09-20-2022 Endarterectomy, carotid SUTURE,LIGA CLIP SM LT-100 FDA Start: 09-20-2022 Endarterectomy, carotid DRESSING,SURGICEL 4x8 FDA Start: 09-20-2022 Endarterectomy, carotid PATCH,VASC .8CM X 8CM FDA Start: 09-20-2022 Endarterectomy, carotid SUTURE,LIGA CLIP MED LT200 FDA Start: 09-20-2022 Endarterectomy, carotid SUTURE,LIGA CLIP MED LT200 FDA Start: 09-20-2022 Endarterectomy, carotid SUTURE,LIGA CLIP SM LT-100 FDA Start: 09-20-2022 Endarterectomy, carotid SUTURE,LIGA CLIP SM LT-100 FDA Start: 09-20-2022 Endarterectomy, carotid SUTURE,LIGA CLIP SM LT-100 FDA Start: 09-20-2022 Endarterectomy, carotid DRESSING,SURGICEL 4x8 FDA Start: 09-20-2022 Endarterectomy, carotid PATCH,VASC .8CM X 8CM FDA Start: 09-20-2022 Endarterectomy, carotid SUTURE,LIGA CLIP MED LT200 FDA Start: 09-20-2022 Endarterectomy, carotid SUTURE,LIGA CLIP MED LT200 FDA Start: 09-20-2022 Endarterectomy, carotid SUTURE,LIGA CLIP SM LT-100 FDA Start: 09-20-2022 Endarterectomy, carotid SUTURE,LIGA CLIP SM LT-100 FDA Start: 09-20-2022 Endarterectomy, carotid SUTURE,LIGA CLIP SM LT-100 FDA Start: 09-20-2022 Endarterectomy, carotid DRESSING,SURGICEL 4x8 FDA Start: 09-20-2022 Endarterectomy, carotid PATCH,VASC .8CM X 8CM FDA Start: 09-20-2022 Endarterectomy, carotid SUTURE,LIGA CLIP MED LT200 FDA Start: 09-20-2022 Endarterectomy, carotid SUTURE,LIGA CLIP MED LT200 FDA Start: 09-20-2022 Endarterectomy, carotid SUTURE,LIGA CLIP SM LT-100 FDA Start: 09-20-2022 Endarterectomy, carotid SUTURE,LIGA CLIP SM LT-100 FDA Start: 09-20-2022 Endarterectomy, carotid SUTURE,LIGA CLIP SM LT-100 FDA Start: 09-20-2022 Endarterectomy, carotid DRESSING,SURGICEL 4x8 FDA Start: 09-20-2022 Endarterectomy, carotid PATCH,VASC .8CM X 8CM FDA Start: 09-20-2022 Endarterectomy, carotid SUTURE,LIGA CLIP MED LT200 FDA Start: 09-20-2022 Endarterectomy, carotid SUTURE,LIGA CLIP MED LT200 FDA Start: 09-20-2022 Endarterectomy, carotid SUTURE,LIGA CLIP SM LT-100 FDA Start: 09-20-2022 Endarterectomy, carotid SUTURE,LIGA CLIP SM LT-100 FDA Start: 09-20-2022 Endarterectomy, carotid SUTURE,LIGA CLIP SM LT-100 FDA Start: 09-20-2022 Endarterectomy, carotid DRESSING,SURGICEL 4x8 FDA Start: 09-20-2022 Endarterectomy, carotid PATCH,VASC .8CM X 8CM FDA Start: 09-20-2022 Endarterectomy, carotid SUTURE,LIGA CLIP MED LT200 FDA Start: 09-20-2022 Endarterectomy, carotid SUTURE,LIGA CLIP MED LT200 FDA Start: 09-20-2022 Endarterectomy, carotid SUTURE,LIGA CLIP SM LT-100 FDA Start: 09-20-2022 Endarterectomy, carotid SUTURE,LIGA CLIP SM LT-100 FDA Start: 09-20-2022 Endarterectomy, carotid SUTURE,LIGA CLIP SM LT-100 FDA Start: 09-20-2022 Endarterectomy, carotid DRESSING,SURGICEL 4x8 FDA Start: 09-20-2022 Endarterectomy, carotid PATCH,VASC .8CM X 8CM FDA Start: 09-20-2022 Endarterectomy, carotid SUTURE,LIGA CLIP MED LT200 FDA Start: 09-20-2022 Endarterectomy, carotid SUTURE,LIGA CLIP MED LT200 FDA Start: 09-20-2022 Endarterectomy, carotid SUTURE,LIGA CLIP SM LT-100 FDA Start: 09-20-2022 Endarterectomy, carotid SUTURE,LIGA CLIP SM LT-100 FDA Start: 09-20-2022 Endarterectomy, carotid SUTURE,LIGA CLIP SM LT-100 FDA Start: 09-20-2022 Endarterectomy, carotid DRESSING,SURGICEL 4x8 FDA Start: 09-20-2022 Endarterectomy, carotid PATCH,VASC .8CM X 8CM FDA Start: 09-20-2022 Endarterectomy, carotid SUTURE,LIGA CLIP MED LT200 FDA Start: 09-20-2022 Endarterectomy, carotid SUTURE,LIGA CLIP MED LT200 FDA Start: 09-20-2022 Endarterectomy, carotid SUTURE,LIGA CLIP SM LT-100 FDA Start: 09-20-2022 Endarterectomy, carotid SUTURE,LIGA CLIP SM LT-100 FDA Start: 09-20-2022 Endarterectomy, carotid SUTURE,LIGA CLIP SM LT-100 FDA Start: 09-20-2022 Endarterectomy, carotid DRESSING,SURGICEL 4x8 FDA Start: 09-20-2022 Endarterectomy, carotid PATCH,VASC .8CM X 8CM FDA Start: 09-20-2022 Endarterectomy, carotid SUTURE,LIGA CLIP MED LT200 FDA Start: 09-20-2022 Endarterectomy, carotid SUTURE,LIGA CLIP MED LT200 FDA Start: 09-20-2022 Endarterectomy, carotid SUTURE,LIGA CLIP SM LT-100 FDA Start: 09-20-2022 Endarterectomy, carotid SUTURE,LIGA CLIP SM LT-100 FDA Start: 09-20-2022 Endarterectomy, carotid SUTURE,LIGA CLIP SM LT-100 FDA Start: 09-20-2022 Endarterectomy, carotid DRESSING,SURGICEL 4x8 FDA Start: 09-20-2022 Endarterectomy, carotid PATCH,VASC .8CM X 8CM FDA Start: 09-20-2022 Endarterectomy, carotid SUTURE,LIGA CLIP MED LT200 FDA Start: 09-20-2022 Endarterectomy, carotid SUTURE,LIGA CLIP MED LT200 FDA Start: 09-20-2022 Endarterectomy, carotid SUTURE,LIGA CLIP SM LT-100 FDA Start: 09-20-2022 Endarterectomy, carotid SUTURE,LIGA CLIP SM LT-100 FDA Start: 09-20-2022 Endarterectomy, carotid SUTURE,LIGA CLIP SM LT-100 FDA Start: 09-20-2022 Endarterectomy, carotid DRESSING,SURGICEL 4x8 FDA Start: 09-20-2022 Endarterectomy, carotid PATCH,VASC .8CM X 8CM FDA Start: 09-20-2022 Endarterectomy, carotid SUTURE,LIGA CLIP MED LT200 FDA Start: 09-20-2022 Endarterectomy, carotid SUTURE,LIGA CLIP MED LT200 FDA Start: 09-20-2022 Endarterectomy, carotid SUTURE,LIGA CLIP SM LT-100 FDA Start: 09-20-2022 Endarterectomy, carotid SUTURE,LIGA CLIP SM LT-100 FDA Start: 09-20-2022 Endarterectomy, carotid SUTURE,LIGA CLIP SM LT-100 FDA Start: 09-20-2022 Endarterectomy, carotid DRESSING,SURGICEL 4x8 FDA Start: 09-20-2022 Endarterectomy, carotid PATCH,VASC .8CM X 8CM FDA Start: 09-20-2022 Endarterectomy, carotid SUTURE,LIGA CLIP MED LT200 FDA Start: 09-20-2022 Endarterectomy, carotid SUTURE,LIGA CLIP MED LT200 FDA Start: 09-20-2022 Endarterectomy, carotid SUTURE,LIGA CLIP SM LT-100 FDA Start: 09-20-2022 Endarterectomy, carotid SUTURE,LIGA CLIP LT-100 FDA Start: 09-20-2022 Endarterectomy, carotid SUTURE,LIGA CLIP LT-100 FDA Start: 09-20-2022 1 Device once daily. [id number] Start: 02-01-2018 Comment on above: 1 Device once daily. [employer] Clip [id number] Start: 10-10-2024 Comment on above: Description: TOP HAT CLIP Goals Date Patient Goal Desired Activity /State Functional Status Date Assessment Result Facility 09-21-2022 Functional status Ambulates [facility] Work Phone: 02-06-2015 Are you deaf, or do you have serious difficulty hearing No 02/06/2015 11:13 AM Sruthi Locke RN [facility] 02-06-2015 Are you blind, or do you have serious difficulty seeing, even when wearing glasses No 02/06/2015 11:13 AM Sruthi Locke RN [facility] 02-06-2015 Do you have serious difficulty walking or climbing stairs No 02/06/2015 11:13 AM Sruthi Locke RN [facility] 02-06-2015 Do you have difficul ty dressing or bathing No 02/06/2015 11:13 AM Sruthi Locke RN [facility] 02-06-2015 Because of a physica l, mental, or emotional condition, do you have difficulty doing errands alone such as visiting a physician's office or shopping No 02/06/2015 11:13 AM Sruthi Locke RN [facility] Mental Status Date Assessment Result Facility 12-12-2022 Cognitive function Level Of Cons ciousness Awake;Alert;Appropriate [facility] Work Phone: 09-21-2022 Cognitive function Voice/Name [facility] Work Phone: 02-06-2015 Because of a physica l, mental, or emotional condition, do you have serious difficulty concentrating, remembering, or making decisions No 02/06/2015 11:13 AM Sruthi Locke RN No [facility] Clinical Notes 08-04-2016 to 09-05-2025 Note Date & Type Note Facility 09-05-2025 Note HNO ID: [id number] Author: REE FLETCHER MD Service: ? Author Type: Physician Type: Progress Notes Filed: 09/05/2025 12:53 Note Text: Macy Downey is a 75 year old female who presents for follow up of breast imaging. HPI: Macy states she noticed a small lump in her left breast. Otherwise denies breast changes or new breast symptoms. States she has lipomas elsewhere. She has been having dizziness and nausea for which she is seeing her PCP and senior research analyst for. Has been weaning off the estradiol patch. Is having hot flashes and night sweats. She is not ready to continue to decrease the estradiol patch at this time. She does experience chest pain and anxiety since decreasing estradiol patch. She has recently noticed hair loss that is very bothersome for her. Macy says at times she does not want to leave the house due to the hair loss. OB History Gravida3 Para3 Term3 Preterm0 AB0 Living3 SAB0 IAB0 Ectopic0 Multiple0 Live Births0 Comment: 2nd was twins, one twin . 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 History LMP: Hysterectomy Age at Menarche: Age at First : Age at Menopause: 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 History Comments: Sexual Activity: Not Currently; Male; hysterectomy Contraception: Surgical PAST MEDICAL HISTORY Diagnosis Date Abdominal pain, unspecified site Acute gastritis 08/07/2009 Allergy, unspecified not elsewhere classified Diffuse cystic mastopathy Diverticulosis of colon (without mention of hemorrhage) Diverticulosis Empty sella (HCC) Endometriosis s/p SUNIL BSO Esophageal reflux Esophagitis Fatty liver disease, nonalcoholic Heart murmur Hiatal hernia 08/07/2009 Hot flashes due to menopause Hypothyroidism Morbid obesity (HCC) Multiple thyroid nodules Myalgia and myositis, unspecified Pulmonary fibrosis (HCC) 2016 minor in right lung Pulmonary hypertension (HCC) Seen by Dr. Brar Rheumatoid arthritis(714.0) Superficial thrombophlebitis Thyroid cancer (HCC) Type II or unspecified type diabetes mellitus without mention of complication, not stated as uncontrolled Unspecified asthma(493.90) Unspecified chronic bronchitis (HCC) Chronic bronchitis Unspecified essential hypertension PAST SURGICAL HISTORY Procedure Laterality Date ANESTH OPEN/SURG ARTHRS TOTAL KNEE ARTHROPLASTY Right 2017 APPENDECTOMY 1967 EGD TRANSORAL BIOPSY SINGLE/MULTIPLE 08/07/2009 HH, gastritis ESOPHAGOGASTRODUODENOSCOPY TRANSORAL DIAGNOSTIC 10/19/2013 EGD FNA WITH IMAGING 03/26/2010 U/S FNA right thyroid x 1 and left x 2 LAPAROSCOPY DIAGNOSTIC endometriosis PAST SURGICAL HISTORY OF 09/30/2015 Right heart cath, Left heart cath, left ventriculogram, coronary arteriography PAST SURGICAL HISTORY OF 07/2018 Stem cell surgery PAST SURGICAL HISTORY OF 2022 had carotid artery cleaned out SALPINGO-OOPHORECTOMY COMPL/PRTL UNI/BI SPX 1987 Salpingo-oophorectomy THYROIDECTOMY TOTAL/COMPLETE 12/23/2020 thyroid cancer TONSILLECTOMY PRIMARY/SECONDARY Tonsillectomy TOTAL ABDOMINAL HYSTERECT W/WO RMVL TUBE OVARY 1987 Hysterectomy, SUNIL for benign tumor FAMILY HISTORY Problem Relation Age of Onset Heart Mother other (Pulmonary fibrosis) Mother IPF? Heart Father Thyroid Father Heart Sister in her sleep Thyroid Sister Diabetes Sister other (a fib) Sister other (vasculitis) Sister Pancreatic Cancer Sister Heart Brother Pancreatic Cancer Brother Heart Brother in his sleep Cancer Paternal Grandfather bone cancer-multiple myeloma in 70's Lung Cancer Paternal Uncle 70 also brain cancer or brain mets SOCIAL HISTORY[1] Current Outpatient Medications Medication Sig sucralfate (CARAFATE) 1 gram tablet Take 1 g by mouth. MOUNJARO 2.5 mg/0.5 mL pen injector Inject 2.5 mg subcutaneously one time a week. amLODIPine (NORVASC) 5 mg tablet Take 5 mg by mouth once daily. metoprolol tartrate, short acting, (LOPRESSOR) 25 mg tablet Take 25 mg by mouth two times a day. estradiol (RAHUL) 0.05 mg/24 hr patch Apply 1 patch as directed two times a week. estradiol (ESTRACE) 0.01 % (0.1 mg/gram) vaginal cream Use vaginally one time a week. ranolazine ER (RANEXA) 500 mg 12 hr tablet Take 1 tablet by mouth two times a day. fluorometholone (FML LIQUID FILM) 0.1 % ophthalmic suspension 1 Drop twice daily. ascorbic acid (VITAMIN C ORAL) Take by mouth. aspirin 81 mg cap Take by mouth. IBUPROFEN ORAL Take 200 mg by mouth twice daily as needed. fluticasone (FLONASE) 50 mcg/actuation nasal spray Use 2 Sprays in each nostril once daily. cholecalciferol (VITAMIN D3) 5,000 unit tab Take 5,000 Units by mouth once daily. Psyllium powd Take by mouth. levothyroxine (SYNTHROID) 137 mcg tablet Take 137 mcg by mouth once daily. metoprolol tartrate, short acting, (LOPRESSOR) 100 mg tablet Take 100 mg by mouth two times a day. spironolactone (ALDACTONE) 25 mg tablet Take 1 tablet by mouth every morning. estradiol (VIVELLE-DOT) 0.07 (more content not included)... [facility] 08-14-2025 Progress note [facility] 08-07-2025 Evaluation note Diagnosis Onset Date Resolution Atherosclerotic heart disease of iroquois coronary artery with unspecified an acute August 07 9:08am Left carotid artery stenosis acute August 07 9:08am Mild aortic stenosis acute 2024 9:08am Paroxysmal atrial fibrillation acute August 07 9:08am Essential hypertension chronic Oc tob2024 9:08am HLD (hyperlipidemia) chronic 2024 9:08am [facility] Work Phone: 1(292) 260-810010-08-2025 Evaluation note* Diagnosis Onset Date Resolution Status Admit Date Atherosclerotic heart diseas e of iroquois coronary artery with unspecified an acute August 07 9:08am Left carotid artery stenosis acute August 07, 2025 9:08am Mild aortic stenosis acute 2024 9:08am Paroxysmal atrial fibrillation acute August 07, 2025 9:08am Essential hypertension chronic Oc tob2024 9:08am HLD (hyperlipidemia) chronic 2024 9:08am Frequency of micturition acute August 07, 2025 11:15am Mixed incontinence acute Julobe r 2024 11:15am Nocturia acute August 07, 2 025 11:15am Urgency of urination acute Julo 2024 11:15am Urinary tract infection acute O ctober 2024 11:15am Vaginal atrophy acute August 072024 11:15am Nausea acute August 14, 2025 8:42am Paroxysmal atrial fibrillation acute August 14, 2025 8:42am RUQ pain acute August 14, 2025 8:42am Diabetes mellitus chronic August 14, 2025 8:42am Essential hypertension chronic Oc tober 2024 8:42am Fatigue chronic August 14, 2025 8:42am HLD (hyperlipidemia) chronic Octo wilfredo 2024 8:42am Hypothyroidism chronic August 142024 8:42am Obesity chronic August 14, 2025 8:42am [facility] Work Phone: 1(560) 149-344010-08-2025 Progress [facility] [address] [place] [address] OFFICE VISIT Date of Service: 08/07/25 MR#: [id number] Acct: [id number] Name: MACY DOWNEY Rep #: [id number] : 1950 Provider: SHAHRAM Douglas Age/Sex: 74/F Location: [facility] [place] [facility] Status: Signed HPI HPI History of Present Illness Details: The patient is a 74-year-old female with CAD, HTN, pulmonary HTN, paroxysmal atrial fibrillation, HLD, DMII, and a history of thyroidectomy, presenting with recurrent chest discomfort, palpitations, and blood pressure fluctuations. She has a history of single-vessel diagonal 80% stenosis, mild disease of the LAD, circumflex, and RCA on heart catheterization in 03/2023, for which medical therapy was recommended. A stress test in 05/2024 was negative for ischemia. She also has a history of left carotid endarterectomy in 08/2022. She is currently on aspirin for anticoagulation. She describes several recent episodes of chest pain characterized as a squeezingsensation, accompanied by a sensation of forceful heartbeats. She also reports nocturnal episodes of rapid heart rate that awaken her from sleep, as well as intermittent chest pressure. She notes that these symptoms have been more frequent since March, coinciding with a period when her thyroid function was abnormal. She attributes some improvement in symptoms to recent adjustments in her thyroid medication, followinga TSH <0.18, which led to a reduction in her levothyroxine dose from 175 mcg to a lower dose. She also reports significant fatigue and hair loss, which she attributes to her thyroid dysfunction. She reports difficulty managing her blood pressure, with readings fluctuating from the 80s to as high as 179/90 mmHg. She was initially taken off amlodipine due to low blood pressure, but it was restarted at 5 mg daily when her blood pressure increased. She experiences significant lightheadedness when taking amlodipine with her other morning medications, so she now takes it alone at night, which has reduced but not eliminated the lightheadedness. She is also on metoprolol, but the dose was not specified. She has a family history of atrial fibrillation in her mother, sister, and brother. She denies sleep apnea. Intake Vital Signs 10/12/24 12:56 08/07/25 08:01 08/07/25 09:37 Height 5 ft 2 in 5 ft 2 in Weight: 234 lb BMI 42.7 BP 152/74 H 109/66 Blood Pressure Location Lt radial Lt radial Position Sitting Sitting Respiration 18 Pulse 71 Pulse Source Monitor Pulse Oximetry (%) 98 Oxygen Delivery Method room air Intake Visit Reasons: 6 M Pharmacy Associate Required: No Accompanied by: Self Is patient in pain?: No Allergies amoxicillin Allergy (Verified 08/07/25 09:15) Unknown duloxetine (From Cymbalta) Allergy (Verified 08/07/25 09:15) neuropathy losartan (Losartan) Allergy (Verified 08/07/25 09:15) Unknown ramipril Allergy (Verified 08/07/25 09:15) Unknown ranitidine HCl (From Zantac) Allergy (Verified 08/07/25 09:15) Unknown meloxicam (From Mobic) Adverse Reaction (Severe, Verified 08/07/25 09:15) Heartburn celecoxib (From Celebrex) Adverse Reaction (Verified 08/07/25 09:15) Upset Stomach cortisone Adverse Reaction (Verified 08/07/25 09:15) emotional issues glimepiride Adverse Reaction (Verified 08/07/25 09:15) Nausea/Vom/Diarrhea metformin HCl (From Glucophage) Adverse Reaction (Verified 08/07/25 09:15) Nausea/Vom/Diarrhea methotrexate Adverse Reaction (Verified 08/07/25 09:15) Unknown Penicillins Adverse Reaction (Verified 08/07/25 09:15) Nausea/Vom/Diarrhea pravastatin Adverse Reaction (Verified 08/07/25 09:15) MUSCLE PAIN Medications ?Medication ?Instructions ?Recorded ?Confirmed ?Type fluticasone propionate 50 1 spray NASAL DAILY PRN Forrest estion 09/29/15 08/07/25 History mcg/actuation nasal spray,suspension cholecalciferol (vitamin D3) 50 5,000 unit PO DAILY PULLIAM PPLEMENT 08/24/17 08/07/25 History mcg (2,000 unit) capsule ascorbate calcium (vitamin C) 500 500 mg PO DAILY SUPP LEMENT 07/10/20 08/07/25 History mg tablet artifi.tears(hypromellose)(PF) 0.3 1 drp ophthalmic (e ye) DAILY PRN 05/31/22 08/07/25 History % eye drops Dry Eye(S) aspirin 81 mg tablet,delayed 81 mg PO QDAY HEART HEALT H 09/09/22 08/07/25 History release (Adult Aspirin Regimen) estradiol 0.1 mg/24 hr semiweekly 0.1 mg topical SUWE MENOPAUSE 09/09/22 08/07/25 History transdermal patch (Vivelle-Dot) ibuprofen 800 mg tablet 800 mg PO BID PRN PAIN 01/1208/07/25 History omeprazole magnesium 20 mg 40 mg PO DAILY GERD 4 08/07/25 History capsule,delayed release (Acid 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)) psyllium husk 0.4 gram capsule 0.4 g PO DAILY PRN cons tipation 05/22/24 08/07/25 History (Metamucil) ranolazine 500 mg tablet,extended 1,000 mg (2 x 500 mg ) PO .COMPLEX 02/05/25 08/07/25 Rx release,12 hr #360 tabs estradiol 0.01% (0.1 mg/gram) 1 g vaginal 2XW #42.5 gr ams 02/20/25 08/07/25 Rx vaginal cream azithromycin 250 mg tablet See Rx Instructions PO .COM PLEX #6 05/24/25 08/07/25 Rx tabs metoprolol tartrate 100 mg tablet 100 mg PO BID DO NOT USE Aurobin 07/08/25 08/07/25 Rx brand generic #180 tabs amlodipine 5 mg tablet 5 mg PO QDAY 08/07/25 History levothyroxine 175 mcg tablet 137 mcg PO DAILY 08/07/25 08/07/25 History rosuvastatin 5 mg tablet 20 mg PO DAILY 08/07/25 1006/24 History tirzepatide 5 mg/0.5 mL mg subcut 08/07/25 08/07/25 History subcutaneous pen injector (Rose) Ejection fraction %: 60 Have you fallen in the past year?: Yes Nurse's Note: Saw Dr. Odell from [facility]. He had an echo done for her, and put her back onamlodipine. Her BPsare unstable. She is having a few episodes of CP and palps. [facility] Medical History PONV (postoperative nausea and vomiting) Unilateral vocal cord paralysis Graves disease Thyroid disease Rheumatoid arthritis High cholesterol TIA (transient ischemic attack) History of hiatal hernia Diverticulosis History of colitis Shortness of breath on exertion Chronic cough Leg cramps History of edema Hypertension Epigastric pain Rectal bleeding Dysphagia Abnormal stress test Carotid stenosis Wears glasses Anxiety Cancer Hyperthyroidism Diabetes Bladder leak Hemochromatosis Fatty liver Restless leg Back pain Concussion Mini stroke Light-headedness Dietary restriction Hernia, hiatal Hx of duodenal ulcer Diverticulitis GERD (gastroesophageal reflux disease) Non-smoker History of pain when walking Edema Rheumatic fever Cardiology follow-up encounter H/O echocardiogram History of stress test Obesity Thyroid cancer Asthma Knee pain Cancer Arthritis Postprocedural hypothyroidism Paroxysmal atrial fibrillation Atrial fibrillation Hypothyroidism stem cell replacement Lt knee Essential hypertension Screening for intestinal cancer GERD (gastroesophageal reflux disease) Chest pain, unspecified HTN (hypertension) Left carotid artery stenosis HLD (hyperlipidemia) Diabetes mellitus Fatigue Visual disturbance Pulmonary hypertension Surgical History Cataract fragments in eye following cataract surgery History of left-sided carotid endarterectomy History of left-sided carotid endarterectomy (~09/20/22) Hx of cardiac catheterization History of thyroidectomy, total H/O: hysterectomy History of knee replacement S/P thyroid biopsy (~02/2018) Family History Father CAD (coronary artery disease) Ischemic cardiomyopathy Mother Atrial fibrillation CHF (congestive heart failure) Pulmonary fibrosis Sister Myocardial infarction Diabetes COPD (chronic obstructive pulmonary disease) Hypertension Cancer Pancreatic Brother Cancer Pancreatic CA Diabetes Atrial fibrillation Social History Smoking Status: Never smoker alcohol intake: former substance use type: does not use caffeine: Yes Type: coffee what type of physical activity do you participate in: other details: physical therapy frequency: 1-2 times per week duration: 45-60 minutes/day seatbelt use: always do you feel safe at home: Yes ROS Const Const: Positive for fatigue and weakness; Negative for headache(s) Eyes Eyes: Negative for change in vision ENT ENT: Negative for headache(s), dizziness, Nosebleed/epistaxis or balance problems Cardio Chest Pain: Yes Frequency: weekly Character: tightness and squeezing Palpitations: Yes feels like its: fast and pounding Edema: Left (Left can be bigger than right at times. ) and Bilateral Resp Respiratory: Positive for SOB with activity GI GI: Positive for bright, red blood in stools; Negative nausea, vomiting or heartburn : Negative for hematuria Musc Musc: Negative for balance problems Neuro Neuro: Positive for lightheadedness, near syncope and weakness; Negative for dizziness, syncope or headache(s) Endo Endo: Positive for fatigue Cardiology Exam Const Appearance: cooperative, healthy appearing, comfortable, no acute distress, welldeveloped and well groomed Nutritional Appearance: well nourished and obese Orientation: alert, awake and oriented x3 Head Head: normal to inspection, normocephalic and atraumatic Ears: hearing grossly normal bilaterally Nose: external nose normal Face and Sinus: face symmetric Eyes Eyelids: eyelids normal Conjunctivae: conjunctivae normal Pupils: PERRL EOM: EOM intact bilaterally Neck Neck: normal visual inspection and full ROM Carotids: normal carotid upstroke carotid endarterectomy: Bilateral Chest Chest inspection: normal inspection of the chest, symmetric chest movement and normal respiratory effort Auscultation: Bilateral: Clear to Auscultation Cardio Palpation: normal PMI Rate: regular rate Rhythm: regular rhythm Heart sounds: S1 normal, S2 normal and murmur Murmur: Grade 1/6, soft, mid systolic, LVOT and sternal notch GI GI: normal to inspection, soft and obese Neuro General: patient alert, patient awake, patient oriented x3 and moves all extremities Skin Skin: no rashes or lesions noted Extremities Pulses: Normal: Right Radial Pulse and Left Radial Pulse Lower Extremity Edema: Trace: Bilateral Psych Psychological: normal affect Supplemental Info Supplemental Information Stress Test 06/01/2024: Conclusion: Normal pharmacologic myocardial perfusion stress test. Preserved ejection fraction. Echocardiogram 08/05/2023: Interpretation Summary Normal LV size. Left ventricular systolic function is normal. The estimated ejection fraction is 60 %. Stage 1 diastolic dysfunction. Contrast injection was performed. Cardiac Catheterization 04/05/2023: CONCLUSIONS Single-vessel diagonal stenosis and mild LAD disease and mild circumflex disease and mild RCA disease. RECOMMENDATIONS Medical therapy CORONARY ANGIOGRAPHY DOMINANCE: Right Dominant LEFT HEART ASSESSMENT Left Ventricular Ejection Fraction: by LV Gram 75 % Normal LV wall motion Normal Left Ventricular systolic function LEFT MAIN: No significant disease noted LEFT ANTERIOR DESCENDING ARTERY: Mild luminal irregularities less than 30% DIAGONAL 1: Ostial - 80 % Stenosis CIRCUMFLEX ARTERY: Mild luminal irregularities less than 30% RIGHT CORONARY ARTERY: Mild luminal irregularities less than 30% Stress test 03/17/2023: Pharmacologic myocardial perfusion stress test. 72-year-old lady with a history of chest pain Resting EKG demonstrates sinus rhythm with a rate of 77 bpm. Resting blood pressure is 180/90 mmHg.0.4 mg of regadenoson was infused per usual protocol followed by rapid intravenous saline flush injection. Continuous EKG monitoringwas performed. The maximum heart rate was 105 bpm which was 70% of max impactedheart rate the maximum workload was 1 metabolic equivalent. At rest there were no ST or T wave changes noted to suggest ischemia and at peak infusion nonspecific ST changes were noted which did not meet the criteria for ischemia. No clinical angina is noted. The final blood pressure was 172/78 mmHg. Myocardial perfusion protocol. 15.0 mCi of technetium 99m sestamibi was injected at rest. 0.4 mg of regadenoson was infused per usual protocol. At peak infusion 44.9 mCi of technetium 99m sestamibi was injected stress images were obtained stress and rest images were reconstructed and compared in the short axis vertical long and horizontal long axis. Gated images were also obtained. Perfusion SPECT analysis: Review of the stress images demonstrate normal uptake of tracer noted in all areas of the myocardium except for portion of the anterior wall with reduced perfusion. The resting images similar demonstrated normal uptake of tracer noted in all areas of the myocardium. Mild anterior ischemia is present Gated SPECT analysis: The gated ejection fraction is 72%. Conclusion: Abnormal pharmacologic myocardial perfusion stress test. Preserved ejection fraction. Mild anterior ischemia present Transthoracic echocardiogram: 12-10-2020 Interpretation Summary The study was technically difficult. Contrast injection was performed. Based upon the 2D echocardiographic and contrast enhanced images obtained there appears to be grossly normal left ventricular size, wall motion, and systolic function. The estimated ejection fraction is 65 %. There is moderate mitral annular calcification. Extension of the mitral annular calcification onto the base of the posterior mitral valve leaflet. Trivial mitral valve insufficiency. Trivial tricuspid valve insufficiency. Mild focal aortic valve thickening. Unable to estimate RV systolic pressure/pulmonary artery pressure due to technically difficult study. Diastolic function is indeterminate. Stress Test Report Date: 07-08-2020 Procedure: Pharmacologic stress nuclear imaging study Indications: Chest pain; pulmonary hypertension Consent: Per the patient Procedure: The patient underwent pharmacologic (Regadenoson) evaluation with a peak heart rate of 123 beats per minute (80 %predicted maximal heart rate) and a peak bloodpressure of 142/72 mmHg. The baseline ECG demonstrated normal sinus rhythm. The peak pharmacologic ECG demonstrated no obvious ECG changes. There were no cardiac dysrhythmias pretest, during pharmacologic infusion, or recovery. There was no complaint of chest discomfort during pharmacologic infusion or recovery. The examination was discontinued secondary to completion of protocol. Impression: 1. Pharmacologic (Regadenoson) evaluation 2. Peak pharmacologic ECG with no obvious ECG changes. 3. There were no cardiac dysrhythmias pretest, during pharmacologic infusion, or recovery. 4. Nuclear images pending Myocardial perfusion imaging study: Technique: The patient was injected with 14.7 millicuries of technetium 99m Cardiolite and subsequently rest SPECT Cardiolite nuclear imaging was obtained in the horizontal long, vertical long, and short axis views. The patient underwent pharmacologic (Regadenoson) evaluation with a peak heart rate of 123 beats per minute (80 % percent predicted maximal heart rate) and a peak blood pressure of 142/72 mmHg. The patient was injected with 44.5 millicuries of technetium 99m Cardiolite and subsequently stress SPECT Cardiolite nuclear imaging was obtainedin the horizontal long, vertical long, and short axis views. A gated Cardiolitestudy at peak stress was obtained. Interpretation: Rest and stress SPECT Cardiolite nuclear imaging status post realignment, normalization, and attenuation correction demonstrate at rest the appearance of a small area of subtle diminished tracer uptake near the distal anterior segments which appears to improve/normalize following stress. There is end systolic thickening and brightening. The gated Cardiolite study demonstrates myocardial thickening and inward wall motion. The reported LVEF is 80 %. Impression: 1. Rest and stress SPECT current nuclear imaging demonstrate at rest a small area of subtle diminished tracer uptake near the distal anterior segments which appears to improve/normalize following stress appearing compatible shifting softtissue attenuation/artifact with no myocardial perfusion changes considered diagnostic for associated stress-induced myocardial ischemia. 2. The gated Cardiolite study reports an LVEF of 80 %. She did have a diagnostic cardiac catheterization [...] Mitral valve: A. 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: Status: Acute (2) Paroxysmal atrial fibrillation: Status: Acute (3) HLD (hyperlipidemia): Status: Chronic Qualifiers: Hyperlipidemia type: unspecified Qualified Code(s): E78.5 - Hyperlipidemia, unspecified; E78.5 - Hyperlipidemia, unspecified; E78.5 - Hyperlipidemia, unspecified (4) Essential hypertension: Status: Chronic (5) Mild aortic stenosis: Status: Acute (6) Left carotid artery stenosis: Status: Acute Orders: Orders 14 Day Event Recorder Preventi Today SHAHRAM Celaya I48.0 - Paroxysmal atrial fibrillation, I48.91 - Unspecified atrial fibrillation 12 Lead EKG performed by BMS Today SHAHRAM Celaya I48.0 - Paroxysmal atrial fibrillation, I48.91 - Unspecified atrial fibrillation, R07.9 - Chest pain, unspecified, R42 - Dizziness and giddiness Medications: Changed From levothyroxine 175 mcg PO DAILY 90 tabs 1RF To levothyroxine 137 m[address] PO DA[address] Ora Nam MD From rosuvastatin 5 mg PO DAILY 90 tabs 1RF To rosuvastatin [address] Ora Nam MD From amlodipine 5 mg PO ONCE To amlodipine 5 mg PO QDAY Nicol Adkins AIR TUCKER, AIR TUCKER-C Plan 1. Coronary artery disease involving iroquois coronary artery of iroquois heart withangina pectoris: - Intermittent squeezing-type chest pressure; prior negative stress test (May2024) and heart catheterization (March 2023) demonstrating single-vessel diagonalstenosis at 80% with mild disease elsewhere. - Currently managed medically; no acute changes in anti-anginal regimen discussed. 2. Paroxysmal atrial fibrillation: - Recurrent palpitations and episodes of perceived heart racing, potentially related to thyroid fluctuations but also suspicious for ongoing atrial fibrillation given personal and familial history. - Ordered a 14-day ambulatory event monitor to document any arrhythmic episodes. - Reviewed stroke risk based on YELENA?DS?-VASc considerations; if atrial fibrillation is confirmed, will consider initiating a direct oral anticoagulant (e.g., apixaban or rivaroxaban) in place of aspirin. 3. Mixed hyperlipidemia: - Lipid panel reportedly improved with current therapy; no changes indicated. 4. Essential (primary) hypertension: - Blood pressure remains variably controlled with amlodipine 5 mg daily; at times systolic levels drop into the 80s, while occasionally reaching 170s/90s. - Noted episodes of pronounced lightheadedness when amlodipine is taken alongside other medications. - Discussed possible adjustment of other antihypertensives; will monitor pressures and event monitor data before making further modifications. 5. Mild aortic stenosis: - Stable, mild aortic valve stenosis on recent echocardiogram, unchanged from prior studies. - No current intervention indicated, will continue routine cardiac follow-up. 6. Carotid artery disease: - Status post left carotid endarterectomy (August 2022). - No new symptoms or changes reported; no additional management discussed. Plan Details Additional Comments: Thank you for allowing me to participate in the care of your patient. Please don't hesitate to callif any issues arise. This note was generated using a voice recognition system and there may be incorrect words, spelling, or punctuation that were not noted when reviewing theoffice note prior to saving. Portions of this documentation were copied and pasted from previous office visitnotes to provide a cohesive continuity of the history. The note has been reviewed, edited, and updated, as necessary. Follow Up: 08/07/25 (please obtain MR from cardiology in [facility]. 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 Author Type: Refueling Ramp Attendant Type: Progress Notes Filed: 08/06/2025 11:23 Note Text: Radiology Service Progress Note PATIENT NAME: Macy Downey DATE OF SERVICE: August 06, 2025 TIME: 11:23 AM PATIENT IDENTITY VERIFICATION COMPLETED USING TWO (2) IDENTIFIERS: Name and Date of confirmed by patient verbally. FALL SCREENING: Has the patient had 2 falls in the last year or 1 fall with injury or currently using an Ambulatory Assistive Device (Walker, Cane, Wheelchair, Crutches, etc.)? No PATIENT GENDER DATA: Assigned female at . status: : No status: NO. PATIENT RELEVANT IMPLANT DATA REVIEWED: Not Applicable PATIENT PRESENTS WITH AN IMPLANTABLE OR ATTACHED MAINTENANCE MAN: No RADIOLOGY DEPARTMENT: Ultrasound PERIPHERAL IV DATA: Not applicable SIGNED BY: Hetal Min RDMS Ana Cristina August 06, 2025 11:23 [facility]10-07-2025 NoteHNO ID: [id number] Author: DC GALO Mammo Tech Service: ? Author Type: Design Center Consultant Type: Progress Notes Filed: 08/06/2025 09:58 Note Text: Radiology Service Progress Note PATIENT NAME: Macy Downey DATE OF SERVICE: August 06, 2025 TIME: 9:57 AM PATIENT IDENTITY VERIFICATION COMPLETED USING TWO (2) IDENTIFIERS: Name and Date of confirmed by patient verbally. FALL SCREENING: Has the patient had 2 falls in the last year or 1 fall with injury or currently using an Ambulatory Assistive Device (Walker, Cane, Wheelchair, Crutches, etc.)? No PATIENT GENDER DATA: Assigned female at . status: : No status: NO. PATIENT RELEVANT IMPLANT DATA REVIEWED: Not Applicable PATIENT PRESENTS WITH AN IMPLANTABLE OR ATTACHED MAINTENANCE MAN: No RADIOLOGY DEPARTMENT: Mammography PERIPHERAL IV DATA: Not applicable SIGNED BY: Harrison Chavis August 06, 2025 9:57 [facility]09-05-2025 Telephone encounter Note* Telephone Encounter - Ree Fletcher MD - 07/05/2025 1:49 PM EDT filed [facility]09-05-2025 Miscellaneous Notes* Telephone Encounter - Ree Fletcher MD - 07/05/2025 1:49 PM EDT filed * Telephone Encounter - Teetee Jung RN - 07/05/2025 11:36 AM EDT Patient is scheduled for f/u right breast diagnostic mammogram/ultrasound 08/06. She is late gettingthis done so since she is due for screening mammogram in July mammography dept requesting bilateral diagnostic mammo order instead. Please file. Teetee Jung RN documented [facility] encounterBet[facility]09-[facility]25 Telephone encounter Note * Telephone Encounter - Teetee Jung RN - 07/05/2025 11:36 AM EDT Patient is scheduled for f/u right breast diagnostic mammogram/ultrasound 08/06. She is late gettingthis done so since she is due for screening mammogram in July mammography dept requesting bilateral diagnostic mammo order instead. Please file. Teetee Jung RN [facility]02-25-2025 Telephone encounter Note* Telephone Encounter - Seb Dewey MA - 12/25/2024 1:43 PM EST PA for Vivelle-Dot submitted and received response that it was approved. [facility]02-25-2025 Miscellaneous Notes* Telephone Encounter - Seb Dewey MA - 12/25/2024 1:43 PM EST PA for Vivelle-Dot submitted and received response that it was approved. * Telephone Encounter - Melania Alanis RN - 12/12/2024 1:39 PM EST Patient is needing a new PA for Vivelle Dot brand name patch since it is a new year. This is the only one she is not allergic to. Last authorization was 02/17/24. Melania Alanis RN documented in this encounterBet[facility]02-12-2025 Telephone encounter Note * Telephone Encounter - Melania Alanis RN - 12/12/2024 1:39 PM EST Patient is needing a new PA for Vivelle Dot brand name patch since it is a new year. This is the only one she is not allergic to. Last authorization was 02/17/24. Melania Alanis RN [facility]12-13-2024 Telephone encounter Note* Telephone Encounter - Melania Alanis RN - 10/12/2024 3:27 PM EST Patient notified and voiced understanding. Transferred to PSS to schedule. Melania Alanis RN [facility]12-13-2024 Miscellaneous Notes* Telephone Encounter - Melania Alanis RN - 10/12/2024 3:27 PM EST Patient notified and voiced understanding. Transferred to PSS to schedule. Melania Alanis RN * Telephone Encounter - Melania Alanis RN - 10/12/2024 3:16 PM EST Left message to call office. Melania Alanis RN * Telephone Encounter - Ree Fletcher MD - 10/12/2024 3:06 PM EST Filed thanks * Telephone Encounter - Portia Lovett - 10/12/2024 10:54 AM EST Patient called and states that the surgeon advised her to follow up in six months for a diagnostic mammogram. No order is available in patient's chart. Please submit necessary orders and notify schedulers if needing only mammogram or both mammogram and US in six months. documented in this encounterBet[facility]12-13-2024 Telephone encounter Note * Telephone Encounter - Melania Alanis RN - 10/12/2024 3:16 PM EST Left message to call office. Melania Alanis RN [facility]12-13-2024 Telephone encounter Note* Telephone Encounter - Ree Fletcher MD - 10/12/2024 3:06 PM EST Filed thanks [facility]12-13-2024 Telephone encounter Note* Telephone Encounter - Portia Lovett - 10/12/2024 10:54 AM EST Patient called and states that the surgeon advised her to follow up in six months for a diagnostic mammogram. No order is available in patient's chart. Please submit necessary orders and notify schedulers if needing only mammogram or both mammogram and US in six months. [facility]11-20-2024 History of Present illness Narrative* Eden Glover, (R) - 09/19/2024 1:30 PM EST Radiology Service Progress Note PATIENT NAME: Macy Downey DATE OF SERVICE: September 19, 2024 TIME: 1:25 PM PATIENT IDENTITY VERIFICATION COMPLETED USING TWO (2) IDENTIFIERS: Name and Date of confirmedby patient verbally. FALL SCREENING: Has the patient had 2 falls in the last year or 1 fall with injury or currently using an Ambulatory Assistive Device (Walker, Cane, Wheelchair, Crutches, etc.)? No PATIENT GENDER DATA: Female. status: : No status: NO. PATIENT RELEVANT IMPLANT DATA REVIEWED: Not Applicable PATIENT PRESENTS WITH AN IMPLANTABLE OR ATTACHED MAINTENANCE MAN: No RADIOLOGY DEPARTMENT: Mammography PERIPHERAL IV DATA: Not applicable SIGNED BY: RT Osmel(Zeina) September 19, 2024 1:25 PM documented in this encounterBet[facility]11-20-2024 NoteHNO ID: [id number] Author: EDEN GLOVER RT(R) Service: ? Author Type: Technologist Type: Progress Notes Filed: 09/19/2024 13:25 Note Text: Radiology Service Progress Note PATIENT NAME: Macy Downey DATE OF SERVICE: September 19, 2024 TIME: 1:25 PM PATIENT IDENTITY VERIFICATION COMPLETED USING TWO (2) IDENTIFIERS: Name and Date of confirmed by patient verbally. FALL SCREENING: Has the patient had 2 falls in the last year or 1 fall with injury or currently using an Ambulatory Assistive Device (Walker, Cane, Wheelchair, Crutches, etc.)? No PATIENT GENDER DATA: Female. status: : No status: NO. PATIENT RELEVANT IMPLANT DATA REVIEWED: Not Applicable PATIENT PRESENTS WITH AN IMPLANTABLE OR ATTACHED MAINTENANCE MAN: No RADIOLOGY DEPARTMENT: Mammography PERIPHERAL IV DATA: Not applicable SIGNED BY: RT Osmel(R) September 19, 2024 1:25 [facility]11-01-2024 Telephone encounter Note* Telephone Encounter - Federico Quinteros - 08/31/2024 3:03 PM EDT Patient called to schedule CB imaging [facility] Work Phone: [phone] Miscellaneous Notes* Telephone Encounter - Federico Quinteros - 08/31/2024 3:03 PM EDT Patient called to schedule CB imaging documented in this encounterBet[facility]10-28-2024 History of Present illness Narrative* Ree Fletcher MD - 08/27/2024 1:29 PM EDT Primary Care Provider offered: Patient declinesSilke Dennis is a 74 year old who presents for an annual gynecologic exam without complaints. Postmenopausal: Yes, no vaginal bleeding HRT use: Yes Has been on estrogen since 1987 S/p hysterectomy Last Pap: no record HPV: no record History of abnormal pap: No Last mammogram: today in process History of abnormal mammogram: No Scheduled for colonoscopy for rectal bleeding OB History T3 L3 SAB0 IAB0 Ectopic0 Multiple0 Live Births0 Comment: 2nd was twins, one twin . 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 History LMP: Hysterectomy Age at Menarche: Age at First : Age at Menopause: 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 History Comments: Sexual Activity: Yes; Male; hysterectomy Contraception: Surgical PAST MEDICAL HISTORY Diagnosis Date Abdominal pain, unspecified site Acute gastritis 08/07/2009 Allergy, unspecified not elsewhere classified Diffuse cystic mastopathy Diverticulosis of colon (without mention of hemorrhage) Diverticulosis Empty sella (HCC) Endometriosis s/p SUNIL BSO Esophageal reflux Esophagitis Fatty liver disease, nonalcoholic Heart murmur Hiatal hernia 08/07/2009 Hot flashes due to menopause Hypothyroidism Morbid obesity (HCC) Multiple thyroid nodules Myalgia and myositis, unspecified Pulmonary fibrosis (HCC) 2016 minor in right lung Pulmonary hypertension (HCC) Seen by Dr. Brar Rheumatoid arthritis(714.0) Superficial thrombophlebitis Thyroid cancer (HCC) Type II or unspecified type diabetes mellitus without mention of complication, not stated as uncontrolled Unspecified asthma(493.90) Unspecified chronic bronchitis (HCC) Chronic bronchitis Unspecified essential hypertension PAST SURGICAL HISTORY Procedure Laterality Date ANESTH OPEN/SURG ARTHRS TOTAL KNEE ARTHROPLASTY Right 2017 APPENDECTOMY 1967 EGD TRANSORAL BIOPSY SINGLE/MULTIPLE 08/07/2009 HH, gastritis ESOPHAGOGASTRODUODENOSCOPY TRANSORAL DIAGNOSTIC 10/19/2013 EGD FNA WITH IMAGING 03/26/2010 U/S FNA right thyroid x 1 and left x 2 LAPAROSCOPY DIAGNOSTIC endometriosis PAST SURGICAL HISTORY OF 09/30/2015 Right heart cath, Left heart cath, left ventriculogram, coronary arteriography PAST SURGICAL HISTORY OF 07/2018 Stem cell surgery PAST SURGICAL HISTORY OF 2022 had carotid artery cleaned out SALPINGO-OOPHORECTOMY COMPL/PRTL UNI/BI SPX 1987 Salpingo-oophorectomy THYROIDECTOMY TOTAL/COMPLETE 12/23/2020 thyroid cancer TONSILLECTOMY PRIMARY/SECONDARY <AGE 13 Tonsillectomy TOTAL ABDOMINAL HYSTERECT W/WO RMVL TUBE OVARY 1987 Hysterectomy, SUNIL for benign tumor FAMILY HISTORY Problem Relation Age of Onset Heart Mother other (Pulmonary fibrosis) Mother IPF? Heart Father Thyroid Father Heart Sister in her sleep Thyroid Sister Diabetes Sister other (a fib) Sister other (vasculitis) Sister Pancreatic Cancer Sister Heart Brother Pancreatic Cancer Brother Heart Brother in his sleep Cancer Paternal Grandfather bone cancer-multiple myeloma in 70's Lung Cancer Paternal Uncle 70 also brain cancer or brain mets SOCIAL HISTORY Social History Tobacco Use Smoking status: Never Smokeless tobacco: Never Tobacco comments: Father smoked in childhood home. ETS when visiting 2 sisters. Vaping Use Vaping status: Never Used Substance Use Topics Alcohol use: Not Currently Drug use: No REVIEW OF SYSTEMS Abdomen: No abdominal pain, nausea, vomiting, diarrhea, or constipation. No bloating, early satiety, indigestion, or increased flatulence. Bladder: No dysuria, gross hematuria, urinary frequency, urinary urgency, or incontinence Breast: No breast lumps, nipple d/c, overlying skin changes, redness or skin retraction Allergies and current medication updated:Yes SENSITIVE EXAM: The sensitive examination was discussed with the Patient or Patient's Authorized Transportation Economics Teacher. As applicable, any other physician, advance practice provider, medical student, or other health professional student that will be observing or involved in the sensitive examination for educational or training purposes was discussed with the Patient or Authorized Transportation Economics Teacher. The Patient or Authorized Transportation Economics Teacher has agreed to proceed with the sensitive examination. (Sensitive examination includes inspection and/or palpation of the breasts, pelvis, prostate and anorectal regions). EXAM: BP 110/70 Ht 5' 2 (1.58m) Wt 265 lb 3.2 oz (120.3kg) BMI 48.49 kg/(m^2). GENERAL: pleasant, female in no apparent distress HEENT: Normocephalic and atraumatic NECK: full range of motion BREAST: soft, non-tender, symmetric, no dominant mass, normal nipple-areolar complex, no lymphadenopathy, and no nipple discharge CHEST: Normal inspiratory effort ABDOMEN: soft, non-tender, and no masses PELVIC: Patient declined given rectal bleeding BIMANUAL: Patient declined RECTOVAGINAL: deferred. NEURO: exam grossly non-focal EXTREMITIES: normal ASSESSMENT/PLAN: 1) Health maintenance: Pap/HPV screening no longer needed Mammogram ordered Nutrition, exercise and routine health maintenance exams reviewed. Colon cancer screening: Already scheduled for colonoscopy. TSH/lipids/glucose: followed by PCP BMD: followed by PCP HRT: Discussed risks with HRT and that my recommendation is to taper off and stop HRT. Reviewed r/b/a HRT. Patient understands risks and is open to tapering. She is hesitant to stop HRT and she feelsunwell off of it. Lower dose sent in and patient to send update 1 month after starting lower dose. 2) Follow up one year or sooner as needed Ree Fletcher DO documented in this encounterBet[facility]10-28-2024 History of Present illness Narrative* Dominique Lawler Mammo Tech - 08/27/2024 1:10 PM EDT Radiology Service Progress Note PATIENT NAME: Mayc Downey DATE OF SERVICE: August 27, 2024 TIME: 1:17 PM PATIENT IDENTITY VERIFICATION COMPLETED USING TWO (2) IDENTIFIERS: Name and Date of confirmedby patient verbally. FALL SCREENING: Has the patient had 2 falls in the last year or 1 fall with injury or currently using an Ambulatory Assistive Device (Walker, Cane, Wheelchair, Crutches, etc.)? No PATIENT GENDER DATA: Female. status: : No status: NO. PATIENT RELEVANT IMPLANT DATA REVIEWED: Not Applicable PATIENT PRESENTS WITH AN IMPLANTABLE OR ATTACHED MAINTENANCE MAN: No RADIOLOGY DEPARTMENT: Mammography PERIPHERAL IV DATA: Not applicable SIGNED BY: Harrison Lo August 27, 2024 1:17 PM documented in this encounterBethesda [facility] Hospital09-30-2024 Telephone encounter Note * Telephone Encounter - Melania Alanis RN - 07/30/2024 12:17 PM EDT PSS: Please contact patient to schedule mammogram. Thank you. Melania Alanis RN [facility]09-30-2024 Miscellaneous Notes* Telephone Encounter - Melania Alanis RN - 07/30/2024 12:17 PM EDT PSS: Please contact patient to schedule mammogram. Thank you. Melania Alanis RN * Telephone Encounter - Ree Fletcher MD - 07/30/2024 12:16 PM EDT filed * Telephone Encounter - Teetee Jung RN - 07/30/2024 10:47 AM EDT Annual scheduled with 08/27/24. Asking for refill and mammogram order. Both are pending. Will forward to PSS to schedule mammogram once completed. Stated that rx may need prior auth completed again as this is the only brand she can use. Requested Prescriptions Pending Prescriptions Disp Refills VIVELLE-DOT 0.1 mg/24 hr patch 24 Patch 0 Sig: Apply 1 Patch as directed two times a week. TWICE WEEKLY Teetee Jung RN documented in this encounterBethes[facility] Hospital09-30-2024 Telephone encounter Note * Telephone Encounter - Ree Fletcher MD - 07/30/2024 12:16 PM EDT filed [facility]09-30-2024 Telephone encounter Note* Telephone Encounter - Teetee Jung RN - 07/30/2024 10:47 AM EDT Annual scheduled with 08/27/24. Asking for refill and mammogram order. Both are pending. Will forward to PSS to schedule mammogram once completed. Stated that rx may need prior auth completed again as this is the only brand she can use. Requested Prescriptions Pending Prescriptions Disp Refills VIVELLE-DOT 0.1 mg/24 hr patch 24 Patch 0 Sig: Apply 1 Patch as directed two times a week. TWICE WEEKLY Teetee Jung RN [facility]04-19-2024 Miscellaneous Notes* Telephone Encounter - Ree Fletcher MD - 02/17/2024 4:07 PM EDT signed * Telephone Encounter - Dawn Martines LPN - 02/17/2024 3:57 PM EDT See pharmacy generated refill request. Pt has scheduled upcoming appointment. Dawn Martines LPN documented in this encounterBethesda North Hospital04-19-2024 Miscellaneous Notes* Telephone Encounter - Dawn Martines LPN - 02/17/2024 3:22 PM EDT Electronic PA submitted. Will await further response from pt's insurance. Dawn Martines LPN * Telephone Encounter - Kerry Loera, DIXON - 02/17/2024 2:41 PM EDT Patient is needing PA for Vivelle Dot brand name patch. This is the only one she isn't allergic to.Last authorized in December 2022. Kerry Loera, RN documented in this encounterBethesda [facility] Hospital04-18-2024 Miscellaneous Notes* Telephone Encounter - Ree Fletcher MD - 02/16/2024 5:08 PM EDT filed * Telephone Encounter - Teetee Jung RN - 02/16/2024 1:13 PM EDT Patient called requesting refill. Annual scheduled with 05/10/24. She resides in [place] during the winter and not coming back until the end of March. Requested Prescriptions Pending Prescriptions Disp Refills VIVELLE-DOT 0.1 mg/24 hr 24 Patch 0 Sig: Apply 1 Patch as directed two times a week. TWICE WEEKLY Teetee Jung RN documented in this encounterBethesda [facility] Hospital07-03-2023 Instructions* Patient Instructions* Braeden Todd - 05/02/2023 9:13 AM EDT Diabetes Foot Care Instructions When you have diabetes, proper foot care is very important. Poor foot care may lead to amputation of a foot or leg. As a person with diabetes, you are more vulnerable to foot problems, because diabetes can damage your nerves and reduce blood flow to your feet. Here are some diabetes foot care tips to follow: Wash and Dry Your Feet Daily Use mild soaps Use warm water Pat your skin dry; do not rub. Thoroughly dry your feet. After washing, use lotion on your feet to prevent cracking. Do not put lotion between your toes. Examine Your Feet Each Day Check the tops and bottoms of your feet. Have someone else look at your feet if you cannot see them. Check for dry, cracked skin. Look for blisters, cuts, scratches, or other sores. Check for redness, increased warmth, or tenderness when touching any area of your feet. Check for ingrown toenails, corns, and calluses. If you get a blister or sore from your shoes, do not pop it. Apply a bandage and wear a differentpair of shoes. Take Care of Your Toenails Cut toenails after bathing, when they are soft. Cut toenails straight across and smooth with a nail file. Avoid cutting into the corners of toes. Do not cut cuticles. If you have neuropathy (or decreased sensation in your feet) a detention officer should always cut your toenails. Be Careful When Exercising Walk and exercise in comfortable shoes. Do not exercise when you have open sores on your feet. Protect Your Feet With Shoes and Socks Never go barefoot. Always protect your feet by wearing shoes or hard-soled slippers or footwear. Avoid shoes with high heels and pointed toes. Avoid shoes that expose your toes or heels (such as open-toed shoes or sandals). These types of shoes increase your risk for injury and potential infections. Try on new footwear with the type of socks you usually wear. Do not wear new shoes for more than an hour at a time. Change your socks daily. Look and feel inside your shoes before putting them on to make sure there are no foreign objects orrough areas. Avoid tight socks. Wear natural-fiber socks (cotton, wool, or a cotton-wool blend). Wear special shoes if your health care provider recommends them. Wear shoes/boots that will protect your feet from various weather conditions (cold, moisture, etc.). Make sure your shoes fit properly. If you have neuropathy (nerve damage), you may not notice that your shoes are too tight. Perform the footwear test described below. Footwear Test Use this simple test to see if your shoes fit correctly: Stand on a piece of paper. (Make sure you are standing and not sitting, because your foot changes shape when you stand.) Trace the outline of your foot. Trace the outline of your shoe. Compare the tracings: Is the shoe too narrow? Is your foot crammed into the shoe? The shoe should be at least 1/2 inch longer than your longest toe and as wide as your foot. Proper Shoe Choices The following types of shoes are best for people with diabetes Closed toes and heels Leather uppers without a seam inside At least 1/2 inch extra space at the end of your longest toe Inside of shoe should be soft with no rough areas Outer sole should be made of stiff material Shoes should be at least as wide as your feet Tips for Foot Care in Diabetes Don't wait to treat a minor foot problem if you have diabetes. Follow your health care provider's guidelines and first aid guidelines. Report foot injuries and infections to your health care provider immediately. Check water temperature with your elbow, not your foot. Do not use a heating pad on your feet. Do not cross your legs. Do not self-treat your corns, calluses, or other foot problems. Go to your health care provider or detention officer to treat these conditions. documented in this encounterBethesda [facility] Hospital07-03-2023 History of Present illness Narrative* Braeden Todd - 05/02/2023 8:58 AM EDT Images from the original note were not included. Initial Office Visit Subjective: This 72 year old female presents to clinic for diabetic foot check. Patient has the following complaints: ingrowing toenail of right hallux. Patient presents to clinic for evaluation of right great toe. She had been dealing with ingrowing toenail of right great toe off/on for the past few months. She states that she develops ingrowing toenails to the right hallux but can often times be managed with pedicure. She states recently, the toewas more swollen and red. She denies any drainage. She has been treating with soaking and listerine. Her biggest concern is infection being that she is diabetic. Patient states the toe is improving. She still has some discomfort but improving. Patient admits to being diabetic for 20+ years now. Patient +B/T/N in feet at this time. Patient -pain in legs when walking. No other pedal complaints at this time. No change in medications or medical history since last visit. PAIN EVALUATION 05/02/2023 [id number] 05/02/2023 0836 Pain Level: 2 -- Pain Location: Toe -- Description: Sore -- Frequency: -- Intermittent Intervention/Comfort measure: -- Relaxation;Reposition Hemoglobin A1C Date Value 06/19/2020 6.0 % 05/24/2019 5.8 % 03/08/2018 6.1 % 01/18/2018 5.4 07/07/2017 5.9 % 06/20/2015 6.7 % Hemoglobin A1C (POCT) (%) Date Value 09/18/2018 5.7 PCP: No primary care provider on file. PAST MEDICAL HISTORY Diagnosis Date Abdominal pain, unspecified site Acute gastritis 08/07/2009 Allergy, unspecified not elsewhere classified Diffuse cystic mastopathy Diverticulosis of colon (without mention of hemorrhage) Diverticulosis Empty sella (HCC) Endometriosis s/p SUNIL BSO Esophageal reflux Esophagitis Fatty liver disease, nonalcoholic Heart murmur Hiatal hernia 08/07/2009 Hot flashes due to menopause Hypothyroidism Morbid obesity (HCC) Multiple thyroid nodules Myalgia and myositis, unspecified Pulmonary fibrosis (HCC) 2016 minor in right lung Pulmonary hypertension (HCC) Seen by Dr. Brar Rheumatoid arthritis(714.0) Superficial thrombophlebitis Thyroid cancer (HCC) Type II or unspecified type diabetes mellitus without mention of complication, not stated as uncontrolled Unspecified asthma(493.90) Unspecified chronic bronchitis (HCC) Chronic bronchitis Unspecified essential hypertension Current Outpatient Medications Medication Sig BROMSITE 0.075 % drop 1 Drop. fluorometholone (FML LIQUID FILM) 0.1 % ophthalmic suspension 1 Drop twice daily. ofloxacin (OCUFLOX) 0.3 % ophthalmic solution VIVELLE-DOT 0.1 mg/24 hr Apply 1 Patch as directed two times a week. TWICE WEEKLY ascorbic acid (VITAMIN C ORAL) Take by mouth. aspirin 81 mg cap Take by mouth. d-mannose (AZO D-MANNOSE) 500 mg cap Take by mouth. metoprolol succinate ER (TOPROL XL) 50 mg 24 hr tablet Take 100 mg by mouth twice daily. IBUPROFEN ORAL Take 200 mg by mouth twice daily as needed. levothyroxine (SYNTHROID) 25 mcg tablet Take 1 tablet by mouth once daily. Take on empty stomach. For thyroid. (Patient taking differently: Take 175 mcg by mouth once daily. Take on empty stomach. For thyroid.) triamterene-hydrochlorothiazide (MAXZIDE-25) 37.5-25 mg per tablet Take 0.5 tablets by mouth once daily. fluticasone (FLONASE) 50 mcg/actuation nasal spray Use 2 Sprays in each nostril once daily. cholecalciferol (VITAMIN D3) 5,000 unit tab Take 5,000 Units by mouth once daily. amLODIPine (NORVASC) 10 mg tablet Take 1 tablet by mouth once daily. (Patient taking differently: Take 5 mg by mouth once daily.) Psyllium powd Take by mouth. levothyroxine 175 mcg cap Take 175 mcg by mouth daily before breakfast. (Patient not taking: Reported on 05/02/2023) Red Yeast Rice Extract 600 mg cap Take by mouth. liraglutide (VICTOZA) 0.6 mg/ 0.1 ml subcutaneous pen injector INJECT 1.2 MILLIGRAM(S) BY SUBCUTANEOUS ROUTE , 1 TIME PER DAY , FOR 30 DAYS lansoprazole (PREVACID) 30 mg capsule Take 1 capsule by mouth once daily. (Patient not taking: Reported on 05/02/2023) potassium chloride (KLOR-CON 10) 10 mEq tablet Take 2 tablets by mouth twice daily. losartan (COZAAR) 25 mg tablet Take 0.5 tablets by mouth once daily. famotidine (PEPCID) 20 mg tablet Take 1 tablet by mouth twice daily. Insulin Wayan, Disposable, (NOVOFINE 30) 30 gauge x 1/3 ndle 1 Device once daily. rosuvastatin (CRESTOR) 20 mg tablet Take 20 mg by mouth once daily. MULTIVITAMIN TAB Take one(1) tablet daily. No current facility-administered medications for this visit. ALLERGIES Allergen Reactions Amoxicillin Diarrhea Glucophage Xr [Metf* Diarrhea, GI Upset Bloating Cymbalta [Duloxetin* Other: See Comments Neuropathy , electrical shocks Glipizide Unknown Nexium [Esomeprazol* Other: See Comments Ineffective Omeprazole Other: See Comments Ineffective Penicillins GI Upset Protonix [Pantopraz* Other: See Comments Ineffective Altace [Ramipril] Other: See Comments Blurred vision Zantac [Ranitidine * Rash, Itching PAST SURGICAL HISTORY Procedure Laterality Date ANESTH OPEN/SURG ARTHRS TOTAL KNEE ARTHROPLASTY Right 2017 APPENDECTOMY 1967 EGD TRANSORAL BIOPSY SINGLE/MULTIPLE 08/07/2009 HH, gastritis ESOPHAGOGASTRODUODENOSCOPY TRANSORAL DIAGNOSTIC 10/19/2013 EGD FNA WITH IMAGING 03/26/2010 U/S FNA right thyroid x 1 and left x 2 LAPAROSCOPY DIAGNOSTIC endometriosis PAST SURGICAL HISTORY OF 09/30/2015 Right heart cath, Left heart cath, left ventriculogram, coronary arteriography PAST SURGICAL HISTORY OF 07/2018 Stem cell surgery SALPINGO-OOPHORECTOMY COMPL/PRTL UNI/BI SPX 1987 Salpingo-oophorectomy THYROIDECTOMY TOTAL/COMPLETE 12/23/2020 thyroid cancer TONSILLECTOMY PRIMARY/SECONDARY <AGE 13 Tonsillectomy TOTAL ABDOMINAL HYSTERECT W/WO RMVL TUBE OVARY 1987 Hysterectomy, SUNIL for benign tumor FAMILY HISTORY Problem Relation Age of Onset Heart Mother other (Pulmonary fibrosis) Mother IPF? Heart Father Thyroid Father Heart Sister in her sleep Thyroid Sister Diabetes Sister other (a fib) Sister other (vasculitis) Sister Pancreatic Cancer Sister Heart Brother Pancreatic Cancer Brother Heart Brother in his sleep Cancer Paternal Grandfather bone cancer-multiple myeloma in 70's Lung Cancer Paternal Uncle 70 also brain cancer or brain mets Social History Tobacco Use Smoking status: Never Smokeless tobacco: Never Tobacco comments: Father smoked in childhood home. ETS when visiting 2 sisters. Vaping Use Vaping Use: Never used Substance Use Topics Alcohol use: Not Currently Drug use: No REVIEW OF SYSTEMS GENERAL: Negative for Malaise, significant weight loss, fever RESPIRATORY: Negative for cough, wheezing and shortness of breath CARDIOVASCULAR: Negative for chest pain, leg swelling and palpitations GI: Negative for abdominal discomfort, blood in stools or black stools and change in bowel habits : Negative for dysuria, frequency and incontinence MUSCULOSKELETAL: Negative for joint pain or swelling, back pain, and muscle pain. SKIN: Negative for lesions, rash, and itching. HEMATOLOGY/LYMPHOLOGY Negative for prolonged bleeding, bruising easily, and swollen nodes. ENDOCRINE: Negative for cold or heat intolerance, polyuria, polydipsia and goiter. NEURO: negative The remainder of the review of systems is noncontributory. Objective: Patient presents to clinic ambulating in [facility] Constitutional: Pt is a well developed 72 year old female who is alert, oriented, cooperative and in no apparent distress. Eyes: Following during examination. No redness or drainage. Respiratory: RR normal and nonlabored. Even breathing. No evidence of distress. Psychology: Patient is engaged during conversation. Normal affect and mood. Does not appear depressed or anxious. Vasc: DP pulses are palpable bilateral. Posterior tibial pulses pulses nonpalpable b/l. CFT is lessthan 5 seconds bilateral. Skin temperature is warm to cool proximal to distal bilateral. There is mild edema or varicosities noted. Hair growth intact. Neuro: Protective sensation is intact to the foot and toes when tested with the 5.07 SWM bilateral.Vibratory sensation is intact at the hallux bilateral. No Significant neurological defecits. Derm: Inspection and palpation performed. Nails right hallux has ingrowing tendency. No signs of infection. Skin is of normal turgor and texture. Hyperkeratosis noted to not present. NO ulcerations, scars, verruca or other lesions noted. Left 3rd finger has + swelling and appears to have some formation of granulation tissue present. No signs of infection. Ortho: Ankle joint DF is full with the knee extended and full with knee flexed. No pain or crepitusnoted. STJ, MTJ ROM are full and free of pain or crepitus. Muscle strength is 5/5 for dorsiflexors,plantarflexors, inverters, everters. Digital deformities include none. Assessment: (L60.0) Onychocryptosis (primary encounter diagnosis) (E11.9) Controlled type 2 diabetes mellitus without complication, without long- term current use of insulin (HCC) (R09.89) Diminished pulses in lower extremity (L98.0) Pyogenic granuloma Plan: 1. Patient was seen and evaluated. 2. Patient was instructed on the continued importance of diabetic foot care along with proper diet and keeping their blood sugar under control to prevent complications. Instructions given both oral and written. 3. Discussed ingrowing toenail of right hallux. No signs of infection are present. Discussed options not limited to slant back debridemetn vs partial matrixectomy vs total nail matrixectomy. Patient has no pain currently. She has elected to monitor. If she were interested in partial nail matrixectomy, would consider getting pvr prior to any attempted procedure. 4. Discussed swelling of left 3rd finger. I am going to make referral to Dr. Mcgraw for evaluation.No signs of infection. If infection were to develop, consider urgent care presentation. Braeden Todd DPM * Celia King RN - 05/02/2023 8:35 AM EDT AMB ROOMING INTAKE FLOWSHEET DATA Risk Screening Do you have concerns about personal safety or safety in the home?: No Pain Pain Level: 2 Pain Location: Toe Description: Sore Frequency: Intermittent Intervention/Comfort measure: Relaxation, Reposition Patient presents with: Right Great Toe - New, Ingrown Toenail Left Foot - New, Diabetic Foot Check Right Foot - New, Diabetic Foot Check Patient presents for possible ingrown nail to right big toe. States that it began a few weeks ago. States that it has gotten better after soaking it. Still red and tender when she wears closed toed shoes. Patient states that she has had them before, but she normally got pedicures and they would trim back the nail. documented in this encounterBet[facility]05-12-[facility]23 Miscellaneous Notes* Letter - Mammography Coordinator - 03/11/2023 12:05 PM EDT March 14, 2023 PID: [id number] Macy Downey [address] [place] [address] Dear Ms. Downey, We are pleased to inform you that the results of your recent breast imaging exam on 03/10/2023 are normal. Your mammogram demonstrates that you have dense breast tissue, which could hide abnormalities. Dense breast tissue, in and of itself, is a relatively common condition. Therefore, this information is not provided to cause undue concern; rather, it is to raise your awareness and promote discussion with your health care provider regarding the presence of dense breast tissue in addition to other riskfactors. Early detection of cancer is very important. We also understand recommendations regarding breast cancer screening are controversial. Please discuss with your primary care provider which strategy is best for you and whether a mammogram is right for you. Your imaging studies and report will be kept on file at [facility] as part of your permanent medical record and are available for your continuing care. Thank you for allowing us to help in meeting your health care needs. Sincerely, Dr. Cuello Interpreting Radiologist [facility] (Normal over 40) documented in this encounterBethesda North Hospital05-11-2023 History of Present illness Narrative* Dominique Lawler, Mammo Tech - 03/10/2023 11:10 AM EDT Radiology Service Progress Note PATIENT NAME: Macy Downey DATE OF SERVICE: March 10, 2023 TIME: 11:10 AM PATIENT IDENTITY VERIFICATION COMPLETED USING TWO (2) IDENTIFIERS: Name and Date of confirmedby patient verbally. FALL SCREENING: Has the patient had 2 falls in the last year or 1 fall with injury or currently using an Ambulatory Assistive Device (Walker, Cane, Wheelchair, Crutches, etc.)? No PATIENT GENDER DATA: Female. status: : No status: NO. PATIENT RELEVANT IMPLANT DATA REVIEWED: Not Applicable RADIOLOGY DEPARTMENT: Mammography PERIPHERAL IV DATA: Not applicable SIGNED BY: Seth Loo Kayla March 10, 2023 11:10 AM documented in this encounterBethesda [facility] Hospital03-07-2023 Miscellaneous Notes* Telephone Encounter - Teetee Jung RN - 01/04/2023 10:31 AM EST Please contact patient to schedule mammogram. Teetee Jung RN * Telephone Encounter - Angelica Esqueda MD - 01/04/2023 10:26 AM EST Filed Angelica Esqueda MD * Telephone Encounter - Teetee Jung RN - 01/04/2023 10:06 AM EST Patient of . She is calling for mammogram order. Please file. Will sent to [facility] to schedule once completed. Teetee Jung RN documented in this encounterBethesda North Hospital02-15-2023 Miscellaneous Notes* Telephone Encounter - Ree Fletcher MD - 12/15/2022 9:07 PM EST Filed. Recommend annual exam to discuss HRT yearly * Telephone Encounter - Teetee Jung RN - 12/14/2022 9:03 AM EST Last annual with SW 11/09/21. Requested Prescriptions Pending Prescriptions Disp Refills VIVELLE-DOT 0.1 mg/24 hr 24 Patch 3 Sig: Apply 1 Patch as directed two times a week. TWICE WEEKLY RX INSTRUCTIONS: Pharmacy initiated this request. No need to notify patient. Teetee Jung RN documented in this encounterBethesda North Hospital11-21-2022 Chief complaint+Reason for visit Narrative* Chief Complaint LEFT FOOT PAIN XRAY Evaluation of Pain LEFT LEG SWELLING 3 M FU LT CAROTID ENDARTERECTOMY LT CAROTID ENDARTERECTOMY LT CAROTID ENDARTERECTOMY CAROTID FU 3 M FU 1 Y FU Incision check L carotid 09/20 CAROTID STENOSIS Reason for Visit Arthritis of left fo ot Strain of left foot Arthritis of left foot Leg swelling Obesity Diabetes mellitus Essential hypertension Graves disease Hypothyroidism Left carotid artery stenosis Postprocedural hypothyroidism Thyroid cancer Diabetes mellitus Essential hypertension HLD (hyperlipidemia) Pulmonary hypertension Left carotid artery stenosis Left carotid artery stenosis Obesity Postprocedural hypothyroidism Thyroid cancer Diabetes mellitus Essential hypertension Chest pain in adult Paroxysmal atrial fibrillation Essential hypertension HLD (hyperlipidemia) Pulmonary hypertension Spitting suture [facility] Work Phone: [phone]) 396-647008-02-2022 Miscellaneous Notes* Addendum Note - Melania Alanis RN - 06/01/2022 3:55 PM EDT Addended by: MELANIA ALANIS RN on: 06/01/2022 03:55 PM Modules accepted: Orders * Telephone Encounter - Melania Alanis RN - 06/01/2022 3:52 PM EDT Patient called back and states [facility] in [place] has the Vivelle-Dot. Patient is requesting at 90 day Rx to be sent. Pharmacy updated. Please file. Melania Alanis RN * Telephone Encounter - Kerry Loera RN - 06/01/2022 3:33 PM EDT Patient returned call. States the generic made her break out in a rash. She is going to call aroundto other local pharmacies and see who else might have it in stock. Patient to call if she needs anything further from our office. Kerry Loera RN * Telephone Encounter - Kerry Loera RN - 06/01/2022 3:16 PM EDT [facility] called. They do not have nor can they get the brand name Vivelle-Dot patch. RX is written VERN. Left message for patient to call the office. Is generic OK? Kerry Loera RN documented in this encounterBethesda North Hospital04-12-2022 Miscellaneous Notes* Telephone Encounter - RHONDA Tolentino - 02/09/2022 4:26 PM EDT Patient name and was confirmed at initiation of discussion. Macy Downey's Common Hereditary Cancers Panel plus preliminary evidence pancreatic cancer genes and Thyroid Cancer panel through [facility] was negative for a pathogenic variant. Per recommendation from the 2019 International Cancer of the Pancreas Screening Consortium (Genny, et al. Gut 2020;69:7 17), this patient may qualify for pancreatic cancer screening based on the following criteria: Individuals who have at least one first-degree relative with pancreatic cancer who in turn also hasa first-degree relative with pancreatic cancer may qualify for screening The patient was advised to consider consultation with Dr. Collin Yuan or Dr. Leobardo Booker (ph. ). Please see WSO2t message for further discussion. RHONDA Tolentino Licensed, Certified Genetic Counselor documented in this encounterBethesda North Hospital03-28-2022 History of Present illness Narrative* RHONDA Tolentino - 01/25/2022 12:45 PM EDT [facility] Consultation Note Genetic Counselor: Nela Steele MS, [facility] Patient: Macy Downey Patient Name and confirmed at initiation of visit. Patient joined by her spouse Francis. HIGH LEVEL SUMMARY: The patient's family history is potentially suggestive of a hereditary cancer syndrome. The patient provided informed consent for Common Hereditary Cancers Panel plus preliminary evidencepancreatic cancer genes plus thyroid cancer panel through [facility]. Results are expected in 2-3 weeks. IDENTIFICATION AND CHIEF COMPLAINT: Dr. Ree Fletcher requested a consultation for genetic counseling and risk assessment for Macy Downey, a 71 year old female, for discussion of her personal and family history of cancer. She presentsto clinic today to discuss the possibility of a genetic predisposition to cancer, and to further clarify her risks, as well as her family members' risks for cancer. HISTORY OF PRESENT ILLNESS: In 12/2020, at the age of 70, Macy Downey was diagnosed with thyroid cancer (patient reports that pathology included hurthle cell, papillary, and something else; records not currently available). This was an incidental finding during a thyroidectomy, and patient is currently under surveillance. PAST MEDICAL HISTORY Diagnosis Date Abdominal pain, unspecified site Acute gastritis 08/07/2009 Allergy, unspecified not elsewhere classified Diffuse cystic mastopathy Diverticulosis of colon (without mention of hemorrhage) Diverticulosis Empty sella (HCC) Endometriosis s/p SUNIL BSO Esophageal reflux Esophagitis Fatty liver disease, nonalcoholic Heart murmur Hiatal hernia 08/07/2009 Hot flashes due to menopause Hypothyroidism Morbid obesity (HCC) Multiple thyroid nodules Myalgia and myositis, unspecified Pulmonary fibrosis (HCC) 2016 minor in right lung Pulmonary hypertension (HCC) Seen by Dr. Brar Rheumatoid arthritis(714.0) Superficial thrombophlebitis Thyroid cancer (HCC) Type II or unspecified type diabetes mellitus without mention of complication, not stated as uncontrolled Unspecified asthma(493.90) Unspecified chronic bronchitis (HCC) Chronic bronchitis Unspecified essential hypertension PAST SURGICAL HISTORY Procedure Laterality Date ANESTH OPEN/SURG ARTHRS TOTAL KNEE ARTHROPLASTY Right 2017 APPENDECTOMY 1967 EGD TRANSORAL BIOPSY SINGLE/MULTIPLE 08/07/2009 HH, gastritis ESOPHAGOGASTRODUODENOSCOPY TRANSORAL DIAGNOSTIC 10/19/2013 EGD FNA WITH IMAGING 03/26/2010 U/S FNA right thyroid x 1 and left x 2 LAPAROSCOPY DIAGNOSTIC endometriosis PAST SURGICAL HISTORY OF 09/30/2015 Right heart cath, Left heart cath, left ventriculogram, coronary arteriography PAST SURGICAL HISTORY OF 07/2018 Stem cell surgery SALPINGO-OOPHORECTOMY COMPL/PRTL UNI/BI SPX 1987 Salpingo-oophorectomy THYROIDECTOMY TOTAL/COMPLETE 12/23/2020 thyroid cancer TONSILLECTOMY PRIMARY/SECONDARY <AGE 13 Tonsillectomy TOTAL ABDOMINAL HYSTERECT W/WO RMVL TUBE OVARY 1987 Hysterectomy, SUNIL for benign tumor CANCER SURVEILLANCE HISTORY: Mammograms: Yes 07/2021 - benign finding Colonoscopy: Yes 03/2018 - normal EGD: Yes / no polyps per patient GI Polyps: No Dermatology: Yes / as needed REPRODUCTIVE HISTORY AND PERSONAL RISK ASSESSMENT FACTORS: Weight: Last 1 Encounter Wt Readings: Date: Wt: 11/09/2021 116 kg (255 lb 12.8 oz) Height: Last 1 Encounter Ht Readings: Date: Ht: 11/09/2021 154.9 cm (5' 1) Uterus Intact: No, removed at 37 Ovaries Intact: No SOCIAL HISTORY: Social History Tobacco Use Smoking status: Never Smoker Smokeless tobacco: Never Used Tobacco comment: Father smoked in childhood home. ETS when visiting 2 sisters. Vaping Use Vaping Use: Never used Substance Use Topics Alcohol use: Not Currently Drug use: No FAMILY HISTORY: We obtained a detailed, 4-generation family history. Significant diagnoses are listed below: FAMILY HISTORY Problem Relation Age of Onset Heart Mother other (Pulmonary fibrosis) Mother IPF? Heart Father Thyroid Father Heart Sister in her sleep Thyroid Sister Diabetes Sister other (a fib) Sister other (vasculitis) Sister Pancreatic Cancer Sister Heart Brother Pancreatic Cancer Brother Heart Brother in his sleep Cancer Paternal Grandfather bone cancer-multiple myeloma in 70's Lung Cancer Paternal Uncle 70 also brain cancer or brain mets The patient's maternal ancestors are of descent and paternal ancestors are of descent. There is no Ashkenazi Samaritan ancestry. There is no known consanguinity. A copy of the patient's pedigree will be available under the scanned documents tab following today's visit. GENETIC COUNSELING RISK ASSESSMENT, DISCUSSION, AND SUGGESTED FOLLOW UP: We reviewed the natural history and genetic etiology of sporadic, familial and hereditary cancer syndromes. The patient's family history is potentially suggestive of: a hereditary cancer syndrome We discussed that the best person to begin with genetic testing is a family member with a history of cancer. Ms. Downey's sister and brother who were diagnosed with pancreatic cancer would be the most appropriate relatives for genetic testing. However, these relatives are unavailable for testing. Therefore we discussed the limitations of interpreting tests results for an unaffected individual. The patient meets NCCN HBOC testing criteria since her sister and brother had a personal history of pancreatic cancer. We discussed that identification of a hereditary cancer syndrome may help her care providers tailorher medical management. If a mutation is detected, the National Comprehensive Cancer Network and/[facility] opinion recommendations would include increased cancer surveillance and prophylactic surgeryoptions. If a mutation is detected, the patient will be referred back to the referring provider andto any additional appropriate care providers to discuss the relevant options. Inheritance of hereditary cancer syndromes was discussed with the patient. If a mutation is not found in the patient, this will decrease the likelihood of a hereditary cancersyndrome for the patient, however it cannot rule it out as the explanation for the family history of pancreatic cancer. Cancer surveillance options would be discussed for the patient according to theappropriate standard National Comprehensive Cancer Network and [place] Cancer Society guidelines, w ith consideration of their personal and family history risk factors. In this case, the patient willbe referred back to their care providers for discussions of management. Based on this assessment of the patient's family and personal history, genetic testing is recommended. The patient was offered Common Hereditary Cancers Panel plus preliminary evidence pancreatic cancergenes plus Thyroid Cancer Panel through [facility]. After considering the risks, benefits, and limitations, the patient chose to pursue and provided informed consent for the following testing: Common Hereditary Cancers Panel plus preliminary evidence pancreatic cancer genes and thyroid cancer panel through [facility]. The Common Hereditary Cancer Panel includes APC, GERTRUDE, AXIN2, BARD1, BMPR1A, BRCA1, BRCA2, BRIP1, CDH1, CDK4, CDKN2A, CHEK2, CTNNA1, DICER1, EPCAM, GREM1, HOXB13, KIT, MEN1, MLH1, MSH2, MSH3, MSH6, MUTYH, NBN, NF1, NTHL1, PALB2, PDGFRA, PMS2, POLD1, POLE, PTEN, RAD50, RAD51C, RAD51D, SDHA, SDHB, SDHC, SDHD, SMAD4, SMARCA4, STK11, TP53, TSC1, TSC2, VHL. The preliminary evidence pancreatic cancer genes include CDK4, FANCC, and PALLD. The Thyroid Cancer Panel includes: APC, CHEK2, DICER1, OCJNM9H, PTEN, RET, and TP53. We discussed that an NGS panel can rarely result in an unexpected finding in a gene which may or may not be related to the presenting phenotype. We reviewed billing at testing laboratory. Advised patient to contact laboratory immediately if they receive notification of an estimate and they have any concerns or questions about billing. We also reviewed the Genetic Information and Nondiscrimination Act. This is a law in place with protections against health insurance and employment discrimination, based on genetic testing results. We discussed that there are limitations to this law. One limitation is that it does not extend to insurances such as life insurance, terminal operations manager care, or disability. Per the patient's request, we will contact her by telephone to discuss these results. A follow up genetic counseling visit will be scheduled if requested. The patient was seen for a total of 40 minutes, greater than 50% of which was spent [id number] counseling. This plan is being carried out per Dr. Aparna Salazar's recommendations. This note will also be sent to the referring provider via the electronic medical record. Nela Steele MS, [facility] Licensed, Certified Genetic Counselor [facility] CC: Dr. Ree Salazar EDUCATIONAL INFORMATION SUPPLIED TO PATIENT AT ENCOUNTER: None INFORMATION TO BE MAILED TO PATIENT None documented in this encounterBethesda [facility] Hospital10-05-2016 History of Past illness Narrative* Problem Noted Date Resolved Date Depression 08/04/2016 10/19/2019 Chronic rheumatic arthritis 02/06/201502/2016 DM w/ coma type II, uncontrolled 04/08/2014 07/27/2014 Abdominal pain, unspecified site 08/07/2009 10/17/2013 Abdominal pain 08/01/2009 10/19/2013 OBESITY 06/20/2009 02/06/2015 Sprain and strain of unspeci fied site of shoulder and upper arm 09/15/2007 08/04/2016 Overview: Received 20 treatments for R rotator cuff as of 09-06: insurance ran out (50% improvement) Pt planned to see Farrah in 09-06: 150 deg flexion, 120 deg adduction, 4/5 rotator cuff Type II or unspecified type diabetes mellitus without mention of complication, not stated as uncontrolled Diffuse cystic mastopathy 2015 HYPERTENSION NOS 08/05/2015 documented as of this encounter (statuses as of 01/25/2022) [facility] History of Past illness Narrative* Problem Noted Date Resolved Date Depression 08/04/2016 10/19/2019 Chronic rheumatic arthritis 02/06/201502/2016 DM w/ coma type II, uncontrolled 04/08/2014 07/27/2014 Abdominal pain, unspecified site 08/07/2009 10/17/2013 Abdominal pain 08/01/2009 10/19/2013 OBESITY 06/20/2009 02/06/2015 Sprain and strain of unspeci fied site of shoulder and upper arm 09/15/2007 08/04/2016 Overview: Received 20 treatments for R rotator cuff as of 09-06: insurance ran out (50% improvement) Pt planned to see [facility] in 09-06: 150 deg flexion, 120 deg adduction, 4/5 rotator cuff Type II or unspecified type diabetes mellitus without mention of complication, not stated as uncontrolled Diffuse cystic mastopathy 2015 HYPERTENSION NOS 08/05/2015 documented as of this encounter (statuses as of 02/09/2022) [facility] History of Past illness Narrative* Problem Noted Date Resolved Date Depression 08/04/2016 10/19/2019 Chronic rheumatic arthritis 02/06/201502/2016 DM w/ coma type II, uncontrolled 04/08/2014 07/27/2014 Abdominal pain, unspecified site 08/07/2009 10/17/2013 Abdominal pain 08/01/2009 10/19/2013 OBESITY 06/20/2009 02/06/2015 Sprain and strain of unspeci fied site of shoulder and upper arm 09/15/2007 08/04/2016 Overview: Received 20 treatments for R rotator cuff as of 09-06: insurance ran out (50% improvement) Pt planned to see [facility] in 09-06: 150 deg flexion, 120 deg adduction, 4/5 rotator cuff Type II or unspecified type diabetes mellitus without mention of complication, not stated as uncontrolled Diffuse cystic mastopathy 2015 HYPERTENSION NOS 08/05/2015 documented as of this encounter (statuses as of 06/01/2022) [facility] History of Past illness Narrative* Problem Noted Date Resolved Date Depression 08/04/2016 10/19/2019 Chronic rheumatic arthritis 02/06/201502/2016 DM w/ coma type II, uncontrolled 04/08/2014 07/27/2014 Abdominal pain, unspecified site 08/07/2009 10/17/2013 Abdominal pain 08/01/2009 10/19/2013 OBESITY 06/20/2009 02/06/2015 Sprain and strain of unspeci fied site of shoulder and upper arm 09/15/2007 08/04/2016 Overview: Received 20 treatments for R rotator cuff as of 09-06: insurance ran out (50% improvement) Pt planned to see [facility] in 09-06: 150 deg flexion, 120 deg adduction, 4/5 rotator cuff Type II or unspecified type diabetes mellitus without mention of complication, not stated as uncontrolled Diffuse cystic mastopathy 2015 HYPERTENSION NOS 08/05/2015 documented as of this encounter (statuses as of 06/02/2022) [facility] History of Past illness Narrative* Problem Noted Date Resolved Date Depression 08/04/2016 10/19/2019 Chronic rheumatic arthritis 02/06/201502/2016 DM w/ coma type II, uncontrolled 04/08/2014 07/27/2014 Abdominal pain, unspecified site 08/07/2009 10/17/2013 Abdominal pain 08/01/2009 10/19/2013 OBESITY 06/20/2009 02/06/2015 Sprain and strain of unspeci fied site of shoulder and upper arm 09/15/2007 08/04/2016 Overview: Received 20 treatments for R rotator cuff as of 09-06: insurance ran out (50% improvement) Pt planned to see [facility] in 09-06: 150 deg flexion, 120 deg adduction, 4/5 rotator cuff Type II or unspecified type diabetes mellitus without mention of complication, not stated as uncontrolled Diffuse cystic mastopathy 2015 HYPERTENSION NOS 08/05/2015 documented as of this encounter (statuses as of 12/16/2022) [facility] History of Past illness Narrative* Problem Noted Date Resolved Date Depression 08/04/2016 10/19/2019 Chronic rheumatic arthritis 02/06/201502/2016 DM w/ coma type II, uncontrolled 04/08/2014 07/27/2014 Abdominal pain, unspecified site 08/07/2009 10/17/2013 Abdominal pain 08/01/2009 10/19/2013 OBESITY 06/20/2009 02/06/2015 Sprain and strain of unspeci fied site of shoulder and upper arm 09/15/2007 08/04/2016 Overview: Received 20 treatments for R rotator cuff as of 09-06: insurance ran out (50% improvement) Pt planned to see [facility] in 09-06: 150 deg flexion, 120 deg adduction, 4/5 rotator cuff Type II or unspecified type diabetes mellitus without mention of complication, not stated as uncontrolled Diffuse cystic mastopathy 2015 HYPERTENSION NOS 08/05/2015 documented as of this encounter (statuses as of 01/04/2023) [facility] History of Past illness Narrative* Problem Noted Date Resolved Date Depression 08/04/2016 10/19/2019 Chronic rheumatic arthritis 02/06/201502/2016 DM w/ coma type II, uncontrolled 04/08/2014 07/27/2014 Abdominal pain, unspecified site 08/07/2009 10/17/2013 Abdominal pain 08/01/2009 10/19/2013 OBESITY 06/20/2009 02/06/2015 Sprain and strain of unspeci fied site of shoulder and upper arm 09/15/2007 08/04/2016 Overview: Received 20 treatments for R rotator cuff as of 09-06: insurance ran out (50% improvement) Pt planned to see [facility] in 09-06: 150 deg flexion, 120 deg adduction, 4/5 rotator cuff Type II or unspecified type diabetes mellitus without mention of complication, not stated as uncontrolled Diffuse cystic mastopathy 2015 HYPERTENSION NOS 08/05/2015 documented as of this encounter (statuses as of 03/15/2023) [facility] History of Past illness Narrative* Problem Noted Date Resolved Date Depression 08/04/2016 10/19/2019 Chronic rheumatic arthritis 02/06/201502/2016 DM w/ coma type II, uncontrolled 04/08/2014 07/27/2014 Abdominal pain, unspecified site 08/07/2009 10/17/2013 Abdominal pain 08/01/2009 10/19/2013 OBESITY 06/20/2009 02/06/2015 Sprain and strain of unspeci fied site of shoulder and upper arm 09/15/2007 08/04/2016 Overview: Received 20 treatments for R rotator cuff as of 09-06: insurance ran out (50% improvement) Pt planned to see [facility] in 09-06: 150 deg flexion, 120 deg adduction, 4/5 rotator cuff Type II or unspecified type diabetes mellitus without mention of complication, not stated as uncontrolled Diffuse cystic mastopathy 2015 HYPERTENSION NOS 08/05/2015 documented as of this encounter (statuses as of 05/02/2023) [facility] History of Past illness Narrative* Problem Noted Date Diagnosed Date Resolved Date Depression 08/04/2016 10/19/2019 Chronic rheumatic arthritis 02/06/2015 08/04/2016 DM w/ coma type II, uncontrolled 04/08/2014 07/27/2014 Abdominal pain, unspecified site 08/07/2009 10/17/2013 Abdominal pain 08/01/2009 10/19/2013 OBESITY 06/20/2009 02/06/2015 Sprain and strain of unspeci fied site of shoulder and upper arm 09/15/2007 08/04/2016 Overview: Received 20 treatments for R rotator cuff as of 09-06: insurance ran out (50% improvement) Pt planned to see [facility] in 09-06: 150 deg flexion, 120 deg adduction, 4/5 rotator cuff Type II or unspecified type diabetes mellitus without mention of complication, not stated as uncontrolled 07/27/2014 Diffuse cystic mastopathy HYPERTENSION NOS 08/05/2015 documented as of this encounter (statuses as of 09/02/2023) [facility] History of Past illness Narrative* Problem Noted Date Diagnosed Date Resolved Date Depression 08/04/2016 10/19/2019 Chronic rheumatic arthritis 02/06/2015 08/04/2016 DM w/ coma type II, uncontrolled 04/08/2014 07/27/2014 Abdominal pain, unspecified site 08/07/2009 10/17/2013 Abdominal pain 08/01/2009 10/19/2013 OBESITY 06/20/2009 02/06/2015 Sprain and strain of unspeci fied site of shoulder and upper arm 09/15/2007 08/04/2016 Overview: Received 20 treatments for R rotator cuff as of 09-06: insurance ran out (50% improvement) Pt planned to see [facility] in 09-06: 150 deg flexion, 120 deg adduction, 4/5 rotator cuff Type II or unspecified type diabetes mellitus without mention of complication, not stated as uncontrolled 07/27/2014 Diffuse cystic mastopathy HYPERTENSION NOS 08/05/2015 documented as of this encounter (statuses as of 02/17/2024) [facility] History of Past illness Narrative* Problem Noted Date Diagnosed Date Resolved Date Depression 08/04/2016 10/19/2019 Chronic rheumatic arthritis 02/06/2015 08/04/2016 DM w/ coma type II, uncontrolled 04/08/2014 07/27/2014 Abdominal pain, unspecified site 08/07/2009 10/17/2013 Abdominal pain 08/01/2009 10/19/2013 OBESITY 06/20/2009 02/06/2015 Sprain and strain of unspeci fied site of shoulder and upper arm 09/15/2007 08/04/2016 Overview: Received 20 treatments for R rotator cuff as of 09-06: insurance ran out (50% improvement) Pt planned to see [facility] in 09-06: 150 deg flexion, 120 deg adduction, 4/5 rotator cuff Type II or unspecified type diabetes mellitus without mention of complication, not stated as uncontrolled 07/27/2014 Diffuse cystic mastopathy HYPERTENSION NOS 08/05/2015 documented as of this encounter (statuses as of 02/17/2024) [facility] History of Past illness Narrative* Problem Noted Date Diagnosed Date Resolved Date Depression 08/04/2016 10/19/2019 Chronic rheumatic arthritis 02/06/2015 08/04/2016 DM w/ coma type II, uncontrolled 04/08/2014 07/27/2014 Abdominal pain, unspecified site 08/07/2009 10/17/2013 Abdominal pain 08/01/2009 10/19/2013 OBESITY 06/20/2009 02/06/2015 Sprain and strain of unspeci fied site of shoulder and upper arm 09/15/2007 08/04/2016 Overview: Received 20 treatments for R rotator cuff as of 09-06: insurance ran out (50% improvement) Pt planned to see [facility] in 09-06: 150 deg flexion, 120 deg adduction, 4/5 rotator cuff Type II or unspecified type diabetes mellitus without mention of complication, not stated as uncontrolled 07/27/2014 Diffuse cystic mastopathy HYPERTENSION NOS 08/05/2015 documented as of this encounter (statuses as of 02/17/2024) [facility] Family history of pancreatic cancer- Primary Family history of malignant neoplasm of gastrointestinal tract Thyroid cancer (HCC) Malignant neoplasm of thyroid gland Family history of cancer Family history of unspecified malignant neoplasm [facility] Diagnosis Vasomotor symptoms due to menopause [facility] Diagnosis Onset Date Resolution Status GERD (gastroesophageal reflux disease) acute Obesity acute Thyroid cancer acute Diabetes mellitus chronic Essential hypertension chron ic Fatigue chronic HLD (hyperlipidemia) chronic Hypothyroidism chronic Obesity acute Thyroid cancer acute Diabetes mellitus chronic Hypothyroidism chronic [facility] Work Phone: Evaluation note* Diagnosis Onset Date Resolution Status GERD (gastroesophageal reflux disease) acute Obesity acute Thyroid cancer acute Diabetes mellitus chronic Essential hypertension chron ic Fatigue chronic HLD (hyperlipidemia) chronic Hypothyroidism chronic Obesity acute Thyroid cancer acute Diabetes mellitus chronic Hypothyroidism chronic Left carotid artery stenosis chronic [facility] Work Phone: Evaluation note* Diagnosis Onset Date Resolution Status GERD (gastroesophageal reflux disease) acute Obesity acute Thyroid cancer acute Diabetes mellitus chronic Essential hypertension chron ic Fatigue chronic HLD (hyperlipidemia) chronic Hypothyroidism chronic Obesity acute Thyroid cancer acute Diabetes mellitus chronic Hypothyroidism chronic Left carotid artery stenosis chronic Left carotid artery stenosis chronic Arthritis of left foot acute Strain of left foot acute Arthritis of left foot acute Leg swelling acute Obesity acute Diabetes mellitus chronic Essential hypertension chron ic Graves disease chronic Hypothyroidism chronic [facility] Work Phone: Evaluation note* Diagnosis Onset Date Resolution Status GERD (gastroesophageal reflux disease) acute Obesity acute Thyroid cancer acute Diabetes mellitus chronic Essential hypertension chron ic Fatigue chronic HLD (hyperlipidemia) chronic Hypothyroidism chronic Obesity acute Thyroid cancer acute Diabetes mellitus chronic Hypothyroidism chronic Left carotid artery stenosis chronic Left carotid artery stenosis chronic Arthritis of left foot acute Strain of left foot acute Arthritis of left foot acute Leg swelling acute Obesity acute Diabetes mellitus chronic Essential hypertension chron ic Graves disease chronic Hypothyroidism chronic Postprocedural hypothyroidism acute Thyroid cancer acute Diabetes mellitus chronic Essential hypertension chron ic HLD (hyperlipidemia) chronic Left carotid artery stenosis chronic Pulmonary hypertension chron ic Left carotid artery stenosis chronic [facility] Work Phone: Evaluation note* Diagnosis Onset Date Resolution Status Arthritis of left foot acute Strain of left foot acute Arthritis of left foot acute Leg swelling acute Obesity acute Diabetes mellitus chronic Essential hypertension chron ic Graves disease chronic Hypothyroidism chronic Left carotid artery stenosis acute Postprocedural hypothyroidism acute Thyroid cancer acute Diabetes mellitus chronic Essential hypertension chron ic HLD (hyperlipidemia) chronic Pulmonary hypertension chron ic Left carotid artery stenosis acute Left carotid artery stenosis acute Obesity acute Postprocedural hypothyroidism acute Thyroid cancer acute Diabetes mellitus chronic Essential hypertension chron ic Chest pain in adult acute Paroxysmal atrial fibrillation acute Essential hypertension chron ic HLD (hyperlipidemia) chronic Pulmonary hypertension chron ic Spitting suture acute [facility] Work Phone: Evaluation note* Diagnosis Onset Date Resolution Status Left carotid artery stenosis acute Postprocedural hypothyroidism acute Thyroid cancer acute Diabetes mellitus chronic Essential hypertension chron ic HLD (hyperlipidemia) chronic Pulmonary hypertension chron ic Left carotid artery stenosis acute Left carotid artery stenosis acute Obesity acute Postprocedural hypothyroidism acute Thyroid cancer acute Diabetes mellitus chronic Essential hypertension chron ic Chest pain in adult acute Paroxysmal atrial fibrillation acute Essential hypertension chron ic HLD (hyperlipidemia) chronic Pulmonary hypertension chron ic Spitting suture acute Lightheadedness acute Spitting suture acute [facility] Work Phone: Evaluation note* Diagnosis Vasomotor symptoms due to menopause [facility] Diagnosis Encounter for screening mammogram for malignant neoplasm of breast- Primary Other screening mammogram [facility] Diagnosis Onset Date Resolution Status Chest pain in adult acute Paroxysmal atrial fibrillation acute Essential hypertension chron ic HLD (hyperlipidemia) chronic Pulmonary hypertension chron ic Spitting suture acute Lightheadedness acute Spitting suture acute GERD (gastroesophageal reflux disease) acute Headache acute Paroxysmal atrial fibrillation acute Postprocedural hypothyroidism acute Diabetes mellitus chronic Essential hypertension chron ic Hypothyroidism chronic [facility] Work Phone: Evaluation note* Diagnosis Onset Date Resolution Status Lightheadedness acute Spitting suture acute GERD (gastroesophageal reflux disease) acute Headache acute Paroxysmal atrial fibrillation acute Postprocedural hypothyroidism acute Diabetes mellitus chronic Essential hypertension chron ic Hypothyroidism chronic [facility] Work Phone: Evaluation note* Diagnosis Onset Date Resolution Status GERD (gastroesophageal reflux disease) acute Headache acute Paroxysmal atrial fibrillation acute Diabetes mellitus chronic Essential hypertension chron ic Hypothyroidism chronic Postprocedural hypothyroidism chronic Abnormal stress test acute Chest pain in adult acute Paroxysmal atrial fibrillation acute Essential hypertension chron ic HLD (hyperlipidemia) chronic Pulmonary hypertension chron ic Diabetes mellitus chronic Essential hypertension chron ic HLD (hyperlipidemia) chronic Obesity chronic Postprocedural hypothyroidism chronic Thyroid cancer chronic [facility] Work Phone: Evaluation note* Diagnosis Onychocryptosis- Primary Ingrowing nail Controlled type 2 diabetes mellitus without complication, without long-term current use of insulin (HCC) Diminished pulses in lower extremity Other symptoms involving cardiovascular system Pyogenic granuloma Pyogenic granuloma of skin and subcutaneous tissue BMI 45.0-49.9, adult (HCC) Body Mass Index 45.0-49.9, adult [facility] Diagnosis Onset Date Resolution Status GERD (gastroesophageal reflux disease) acute Headache acute Paroxysmal atrial fibrillation acute Diabetes mellitus chronic Essential hypertension chron ic Hypothyroidism chronic Postprocedural hypothyroidism chronic Abnormal stress test acute Chest pain in adult acute Paroxysmal atrial fibrillation acute Essential hypertension chron ic HLD (hyperlipidemia) chronic Pulmonary hypertension chron ic Diabetes mellitus chronic Essential hypertension chron ic HLD (hyperlipidemia) chronic Obesity chronic Postprocedural hypothyroidism chronic Thyroid cancer chronic Left carotid artery stenosis acute [facility] Work Phone: Evaluation note* Diagnosis Onset Date Resolution Status Abnormal stress test acute Chest pain in adult acute Paroxysmal atrial fibrillation acute Essential hypertension chron ic HLD (hyperlipidemia) chronic Pulmonary hypertension chron ic Diabetes mellitus chronic Essential hypertension chron ic HLD (hyperlipidemia) chronic Obesity chronic Postprocedural hypothyroidism chronic Thyroid cancer chronic Left carotid artery stenosis acute Diabetes mellitus chronic Essential hypertension chron ic HLD (hyperlipidemia) chronic Obesity chronic Postprocedural hypothyroidism chronic Thyroid cancer chronic [facility] Work Phone: Evaluation note* Diagnosis Onset Date Resolution Status Diabetes mellitus chronic Essential hypertension chron ic HLD (hyperlipidemia) chronic Obesity chronic Postprocedural hypothyroidism chronic Thyroid cancer chronic Left carotid artery stenosis acute Diabetes mellitus chronic Essential hypertension chron ic HLD (hyperlipidemia) chronic Obesity chronic Postprocedural hypothyroidism chronic Thyroid cancer chronic Exhaustion acute Left carotid artery stenosis acute Chest pain, unspecified realtime captioner lauren Diabetes mellitus chronic Essential hypertension chron ic Fatigue chronic Postprocedural hypothyroidism chronic Thyroid cancer chronic [id number] acute RIBERA (dyspnea on exertion) [place] Paroxysmal atrial fibrillation acute Chest pain, unspecified realtime captioner lauren Essential hypertension chron ic Fatigue chronic HLD (hyperlipidemia) chronic [facility] Work Phone: Evaluation note* Diagnosis Onset Date Resolution Status Diabetes mellitus chronic Essential hypertension chron ic HLD (hyperlipidemia) chronic Obesity chronic Postprocedural hypothyroidism chronic Thyroid cancer chronic Exhaustion acute Left carotid artery stenosis acute Chest pain, unspecified realtime captioner lauren Diabetes mellitus chronic Essential hypertension chron ic Fatigue chronic Postprocedural hypothyroidism chronic Thyroid cancer chronic [id number] acute RIBERA (dyspnea on exertion) [place] Paroxysmal atrial fibrillation acute Chest pain, unspecified realtime captioner lauren Essential hypertension chron ic Fatigue chronic HLD (hyperlipidemia) chronic [facility] Work Phone: Evaluation note* Diagnosis Encounter for screening mammogram for malignant neoplasm of breast Other screening mammogram [facility] Diagnosis Onset Date Resolution Status Diabetes mellitus chronic Essential hypertension chron ic HLD (hyperlipidemia) chronic Obesity chronic Postprocedural hypothyroidism chronic Thyroid cancer chronic Exhaustion acute Left carotid artery stenosis acute Chest pain, unspecified realtime captioner lauren Diabetes mellitus chronic Essential hypertension chron ic Fatigue chronic Postprocedural hypothyroidism chronic Thyroid cancer chronic [id number] acute RIBERA (dyspnea on exertion) [place] Paroxysmal atrial fibrillation acute Chest pain, unspecified realtime captioner lauren Essential hypertension chron ic Fatigue chronic HLD (hyperlipidemia) chronic [id number] acute RIBERA (dyspnea on exertion) [place] Paroxysmal atrial fibrillation acute Chest pain, unspecified realtime captioner lauren Essential hypertension chron ic Fatigue chronic HLD (hyperlipidemia) chronic [facility] Work Phone: Evaluation note* Diagnosis Vasomotor symptoms due to menopause [facility] Diagnosis Vasomotor symptoms due to menopause documented in this encounter [facility] note* Diagnosis Encounter for screening mammogram for malignant neoplasm of breast- Primary Other screening mammogram Vasomotor symptoms due to menopause [facility] Diagnosis Encounter for gynecological examination (general) (routine) without abnormal findings- Primary Encounter for screening mammogram for malignant neoplasm of breast Other screening mammogram [facility] Diagnosis Encounter for screening mammogram for malignant neoplasm of breast Other screening mammogram documented in this encounter [facility] note* Diagnosis Abnormal mammogram- Primary Abnormal mammogram, unspecified documented in this encounter [facility] note* Diagnosis Abnormal mammogram Abnormal mammogram, unspecified documented in this encounter [facility] note* Diagnosis Category 3 mammography result with short follow-up interval suggested for probably benign finding- Primary Inconclusive mammogram documented in this encounter [facility] note* Diagnosis Category 3 mammography result with short follow-up interval suggested for probably benign finding- Primary Inconclusive mammogram documented in this encounter [facility] noteNo assessment information availableWC[facility] Work Phone: Evaluation note* Diagnosis Onset Date Resolution Status Admit Date Atherosclerotic heart diseas e of [place] coronary artery with unspecified an acute August 07 9:08am Left carotid artery stenosis acute August 07, 2025 9:08am Mild aortic stenosis acute 2024 9:08am Paroxysmal atrial fibrillation acute August 07, 2025 9:08am Essential hypertension chronic [facility] to[facility] 2024 9:08am HLD (hyperlipidemia) chronic 2024 9:08am [facility] Work Phone: Hospital Discharge instructions Additional Instructions Chest x-ray negative sodium 133. Monitor your pulse oximetry, if worsening dyspnea and pulse ox below 88%, return for reevaluation. Take medication as prescribed.[facility] Work Phone: Progress note Author Gabrielle Morris [facility] Note Date/Time August 07, 2025 10 :09am [facility] [address] [place] [address] OFFICE VISIT Date of Service: 08/07/25 MR#: [id number] Acct: [id number] Name: MACY DOWNEY Rep #: [id number] Provider: SHAHRAM Douglas Age/Sex: 74/F Location: [facility] [place] Status: Signed HPI HPI History of Present Illness Details: The patient is a 74-year-old female with CAD, HTN, pulmonary HTN, paroxysmal atrial fibrillation, HLD, DMII, and a history of thyroidectomy, presenting with recurrent chest discomfort, palpitations, and blood pressure fluctuations. She has a history of single-vessel diagonal 80% stenosis, mild disease of the LAD, circumflex, and RCA on heart catheterization in 03/2023, for which medical therapy was recommended. A stress test in 05/2024 was negative for ischemia. She also has a history of left carotid endarterectomy in 08/2022. She is currently on aspirin for anticoagulation. She describes several recent episodes of chest pain characterized as a squeezingsensation, accompanied by a sensation of forceful heartbeats. She also reports nocturnal episodes of rapid heart rate that awaken her from sleep, as well as intermittent chest pressure. She notes that these symptoms have been more frequent since March, coinciding with a period when her thyroid function was abnormal. She attributes some improvement in symptoms to recent adjustments in her thyroid medication, following a TSH <0.18, which led to a reduction in her levothyroxine dose from 175 mcg to a lower dose. She also reports significant fatigue and hair loss, which she attributes to her thyroid dysfunction. She reports difficulty managing her blood pressure, with readings fluctuating from the 80s to as high as 179/90 mmHg. She was initially taken off amlodipine due to low blood pressure, but it was restarted at 5 mg daily when her blood pressure increased. She experiences significant lightheadedness when taking amlodipine with her other morning medications, so she now takes it alone at night, which has reduced but not eliminated the lightheadedness. She is also on metoprolol, but the dose was not specified. She has a family history of atrial fibrillation in her mother, sister, and brother. She denies sleep apnea. Intake Vital Signs 10/12/24 12:56 08/07/25 08:01 08/07/25 09:37 Height 5 ft 2 in 5 ft 2 in Weight: 234 lb BMI 42.7 BP 152/74 H 109/66 Blood Pressure Location Lt radial Lt radial Position Sitting Sitting Respiration 18 Pulse 71 Pulse Source Monitor Pulse Oximetry (%) 98 Oxygen Delivery Method room air Intake Visit Reasons: 6 M Pharmacy Associate Required: No Accompanied by: Self Is patient in pain?: No Allergies amoxicillin Allergy (Verified 08/07/25 09:15) Unknown duloxetine (From Cymbalta) Allergy (Verified 08/07/25 09:15) neuropathy losartan (Losartan) Allergy (Verified 08/07/25 09:15) Unknown ramipril Allergy (Verified 08/07/25 09:15) Unknown ranitidine HCl (From Zantac) Allergy (Verified 08/07/25 09:15) Unknown meloxicam (From Mobic) Adverse Reaction (Severe, Verified 08/07/25 09:15) Heartburn celecoxib (From Celebrex) Adverse Reaction (Verified 08/07/25 09:15) Upset Stomach cortisone Adverse Reaction (Verified 08/07/25 09:15) emotional issues glimepiride Adverse Reaction (Verified 08/07/25 09:15) Nausea/Vom/Diarrhea metformin HCl (From Glucophage) Adverse Reaction (Verified 08/07/25 09:15) Nausea/Vom/Diarrhea methotrexate Adverse Reaction (Verified 08/07/25 09:15) Unknown Penicillins Adverse Reaction (Verified 08/07/25 09:15) Nausea/Vom/Diarrhea pravastatin Adverse Reaction (Verified 08/07/25 09:15) MUSCLE PAIN Medications ?Medication ?Instructions ?Recorded ?Confirmed ?Type fluticasone propionate 50 1 spray NASAL DAILY PRN Forrest estion 09/29/15 08/07/25 History mcg/actuation nasal spray,suspension cholecalciferol (vitamin D3) 50 5,000 unit PO DAILY PULLIAM PPLEMENT 08/24/17 08/07/25 History mcg (2,000 unit) capsule ascorbate calcium (vitamin C) 500 500 mg PO DAILY SUPP LEMENT 07/10/20 08/07/25 History mg tablet artifi.tears(hypromellose)(PF) 0.3 1 drp ophthalmic (e ye) DAILY PRN 05/31/22 08/07/25 History % eye drops Dry Eye(S) aspirin 81 mg tablet,delayed 81 mg PO QDAY HEART HEALT H 09/09/22 08/07/25 History release (Adult Aspirin Regimen) estradiol 0.1 mg/24 hr semiweekly 0.1 mg topical SUWE MENOPAUSE 09/09/22 08/07/25 History transdermal patch (Vivelle-Dot) ibuprofen 800 mg tablet 800 mg PO BID PRN PAIN 01/1208/07/25 History omeprazole magnesium 20 mg 40 mg PO DAILY GERD 4 08/07/25 History capsule,delayed release (Acid 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)) psyllium husk 0.4 gram capsule 0.4 g PO DAILY PRN cons tipation 05/22/24 08/07/25 History (Metamucil) ranolazine 500 mg tablet,extended 1,000 mg (2 x 500 mg ) PO .COMPLEX 02/05/25 08/07/25 Rx release,12 hr #360 tabs estradiol 0.01% (0.1 mg/gram) 1 g vaginal 2XW #42.5 gr ams 02/20/25 08/07/25 Rx vaginal cream azithromycin 250 mg tablet See Rx Instructions PO .COM PLEX #6 05/24/25 08/07/25 Rx tabs metoprolol tartrate 100 mg tablet 100 mg PO BID DO NOT USE Aurobin 07/08/25 08/07/25 Rx brand generic #180 tabs amlodipine 5 mg tablet 5 mg PO QDAY 08/07/25 History levothyroxine 175 mcg tablet 137 mcg PO DAILY 08/07/25 08/07/25 History rosuvastatin 5 mg tablet 20 mg PO DAILY 08/07/25 10/06/24 History tirzepatide 5 mg/0.5 mL mg subcut 08/07/25 08/07/25 History subcutaneous pen injector (Rose) Ejection fraction %: 60 Have you fallen in the past year?: Yes Nurse's Note: Saw Dr. Odell from [facility]. He had an echo done for her, and put her back onamlodipine. Her BPs are unstable. She is having a few episodes of CP and palps. [facility] Medical History PONV (postoperative nausea and vomiting) Unilateral vocal cord paralysis Graves disease Thyroid disease Rheumatoid arthritis High cholesterol TIA (transient ischemic attack) History of hiatal hernia Diverticulosis History of colitis Shortness of breath on exertion Chronic cough Leg cramps History of edema Hypertension Epigastric pain Rectal bleeding Dysphagia Abnormal stress test Carotid stenosis Wears glasses Anxiety Cancer Hyperthyroidism Diabetes Bladder leak Hemochromatosis Fatty liver Restless leg Back pain Concussion Mini stroke Light-headedness Dietary restriction Hernia, hiatal Hx of duodenal ulcer Diverticulitis GERD (gastroesophageal reflux disease) Non-smoker History of pain when walking Edema Rheumatic fever Cardiology follow-up encounter H/O echocardiogram History of stress test Obesity Thyroid cancer Asthma Knee pain Cancer Arthritis Postprocedural hypothyroidism Paroxysmal atrial fibrillation Atrial fibrillation Hypothyroidism stem cell replacement Lt knee Essential hypertension Screening for intestinal cancer GERD (gastroesophageal reflux disease) Chest pain, unspecified HTN (hypertension) Left carotid artery stenosis HLD (hyperlipidemia) Diabetes mellitus Fatigue Visual disturbance Pulmonary hypertension Surgical History Cataract fragments in eye following cataract surgery History of left-sided carotid endarterectomy History of left-sided carotid endarterectomy (~09/20/22) Hx of cardiac catheterization History of thyroidectomy, total H/O: hysterectomy History of knee replacement S/P thyroid biopsy (~02/2018) Family History Father CAD (coronary artery disease) Ischemic cardiomyopathy Mother Atrial fibrillation CHF (congestive heart failure) Pulmonary fibrosis Sister Myocardial infarction Diabetes COPD (chronic obstructive pulmonary disease) Hypertension Cancer Pancreatic Brother Cancer Pancreatic CA Diabetes Atrial fibrillation Social History Smoking Status: Never smoker alcohol intake: former substance use type: does not use caffeine: Yes Type: coffee what type of physical activity do you participate in: other details: physical therapy frequency: 1-2 times per week duration: 45-60 minutes/day seatbelt use: always do you feel safe at home: Yes ROS Const Const: Positive for fatigue and weakness; Negative for headache(s) Eyes Eyes: Negative for change in vision ENT ENT: Negative for headache(s), dizziness, Nosebleed/epistaxis or balance problems Cardio Chest Pain: Yes Frequency: weekly Character: tightness and squeezing Palpitations: Yes feels like its: fast and pounding Edema: Left (Left can be bigger than right at times. ) and Bilateral Resp Respiratory: Positive for SOB with activity GI GI: Positive for bright, red blood in stools; Negative nausea, vomiting or heartburn : Negative for hematuria Musc Musc: Negative for balance problems Neuro Neuro: Positive for lightheadedness, near syncope and weakness; Negative for dizziness, syncope or headache(s) Endo Endo: Positive for fatigue Cardiology Exam Const Appearance: cooperative, healthy appearing, comfortable, no acute distress, welldeveloped and well groomed Nutritional Appearance: well nourished and obese Orientation: alert, awake and oriented x3 Head Head: normal to inspection, normocephalic and atraumatic Ears: hearing grossly normal bilaterally Nose: external nose normal Face and Sinus: face symmetric Eyes Eyelids: eyelids normal Conjunctivae: conjunctivae normal Pupils: PERRL EOM: EOM intact bilaterally Neck Neck: normal visual inspection and full ROM Carotids: normal carotid upstroke carotid endarterectomy: Bilateral Chest Chest inspection: normal inspection of the chest, symmetric chest movement and normal respiratory effort Auscultation: Bilateral: Clear to Auscultation Cardio Palpation: normal PMI Rate: regular rate Rhythm: regular rhythm Heart sounds: S1 normal, S2 normal and murmur Murmur: Grade 1/6, soft, mid systolic, LVOT and sternal notch GI GI: normal to inspection, soft and obese Neuro General: patient alert, patient awake, patient oriented x3 and moves all extremities Skin Skin: no rashes or lesions noted Extremities Pulses: Normal: Right Radial Pulse and Left Radial Pulse Lower Extremity Edema: Trace: Bilateral Psych Psychological: normal affect Supplemental Info Supplemental Information Stress Test 06/01/2024: Conclusion: Normal pharmacologic myocardial perfusion stress test. Preserved ejection fraction. Echocardiogram 08/05/2023: Interpretation Summary Normal LV size. Left ventricular systolic function is normal. The estimated ejection fraction is 60 %. Stage 1 diastolic dysfunction. Contrast injection was performed. Cardiac Catheterization 04/05/2023: CONCLUSIONS Single-vessel diagonal stenosis and mild LAD disease and mild circumflex disease and mild RCA disease. RECOMMENDATIONS Medical therapy CORONARY ANGIOGRAPHY DOMINANCE: Right Dominant LEFT HEART ASSESSMENT Left Ventricular Ejection Fraction: by LV Gram 75 % Normal LV wall motion Normal Left Ventricular systolic function LEFT MAIN: No significant disease noted LEFT ANTERIOR DESCENDING ARTERY: Mild luminal irregularities less than 30% DIAGONAL 1: Ostial - 80 % Stenosis CIRCUMFLEX ARTERY: Mild luminal irregularities less than 30% RIGHT CORONARY ARTERY: Mild luminal irregularities less than 30% Stress test 03/17/2023: Pharmacologic myocardial perfusion stress test. 72-year-old lady with a history of chest pain Resting EKG demonstrates sinus rhythm with a rate of 77 bpm. Resting blood pressure is 180/90 mmHg. 0.4 mg of regadenoson was infused per usual protocol followed by rapid intravenous saline flush injection. Continuous EKG monitoringwas performed. The maximum heart rate was 105 bpm which was 70% of max impactedheart rate the maximum workload was 1 metabolic equivalent. At rest there were no ST or T wave changes noted to suggest ischemia and at peak infusion nonspecific ST changes were noted which did not meet the criteria for ischemia. No clinical angina is noted. The final blood pressure was 172/78 mmHg. Myocardial perfusion protocol. 15.0 mCi of technetium 99m sestamibi was injected at rest. 0.4 mg of regadenoson was infused per usual protocol. At peak infusion 44.9 mCi of technetium 99m sestamibi was injected stress images were obtained stress and rest images were reconstructed and compared in the short axis vertical long and horizontal long axis. Gated images were also obtained. Perfusion SPECT analysis: Review of the stress images demonstrate normal uptake of tracer noted in all areas of the myocardium except for portion of the anterior wall with reduced perfusion. The resting images similar demonstrated normal uptake of tracer noted in all areas of the myocardium. Mild anterior ischemia is present Gated SPECT analysis: The gated ejection fraction is 72%. Conclusion: Abnormal pharmacologic myocardial perfusion stress test. Preserved ejection fraction. Mild anterior ischemia present Transthoracic echocardiogram: 12-10-2020 Interpretation Summary The study was technically difficult. Contrast injection was performed. Based upon the 2D echocardiographic and contrast enhanced images obtained there appears to be grossly normal left ventricular size, wall motion, and systolic function. The estimated ejection fraction is 65 %. There is moderate mitral annular calcification. Extension of the mitral annular calcification onto the base of the posterior mitral valve leaflet. Trivial mitral valve insufficiency. Trivial tricuspid valve insufficiency. Mild focal aortic valve thickening. Unable to estimate RV systolic pressure/pulmonary artery pressure due to technically difficult study. Diastolic function is indeterminate. Stress Test Report Date: 07-08-2020 Procedure: Pharmacologic stress nuclear imaging study Indications: Chest pain; pulmonary hypertension Consent: Per the patient Procedure: The patient underwent pharmacologic (Regadenoson) evaluation with a peak heart rate of 123 beats per minute (80 %predicted maximal heart rate) and a peak bloodpressure of 142/72 mmHg. The baseline ECG demonstrated normal sinus rhythm. The peak pharmacologic ECG demonstrated no obvious ECG changes. There were no cardiac dysrhythmias pretest, during pharmacologic infusion, or recovery. There was no complaint of chest discomfort during pharmacologic infusion or recovery. The examination was discontinued secondary to completion of protocol. Impression: 1. Pharmacologic (Regadenoson) evaluation 2. Peak pharmacologic ECG with no obvious ECG changes. 3. There were no cardiac dysrhythmias pretest, during pharmacologic infusion, or recovery. 4. Nuclear images pending Myocardial perfusion imaging study: Technique: The patient was injected with 14.7 millicuries of technetium 99m Cardiolite and subsequently rest SPECT Cardiolite nuclear imaging was obtained in the horizontal long, vertical long, and short axis views. The patient underwent pharmacologic (Regadenoson) evaluation with a peak heart rate of 123 beats per minute (80 % percent predicted maximal heart rate) and a peak blood pressure of 142/72 mmHg. The patient was injected with 44.5 millicuries of technetium 99m Cardiolite and subsequently stress SPECT Cardiolite nuclear imaging was obtainedin the horizontal long, vertical long, and short axis views. A gated Cardiolitestudy at peak stress was obtained. Interpretation: Rest and stress SPECT Cardiolite nuclear imaging status post realignment, normalization, and attenuation correction demonstrate at rest the appearance of a small area of subtle diminished tracer uptake near the distal anterior segments which appears to improve/normalize following stress. There is end systolic thickening and brightening. The gated Cardiolite study demonstrates myocardial thickening and inward wall motion. The reported LVEF is 80 %. Impression: 1. Rest and stress SPECT current nuclear imaging demonstrate at rest a small area of subtle diminished tracer uptake near the distal anterior segments which appears to improve/normalize following stress appearing compatible shifting softtissue attenuation/artifact with no myocardial perfusion changes considered diagnostic for associated stress-induced myocardial ischemia. 2. The gated Cardiolite study reports an LVEF of 80 %. She did have a diagnostic cardiac catheterization [...] Mitral valve: A. 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: Status: Acute (2) Paroxysmal atrial fibrillation: Status: Acute (3) HLD (hyperlipidemia): Status: Chronic Qualifiers: Hyperlipidemia type: unspecified Qualified Code(s): E78.5 - Hyperlipidemia, unspecified; E78.5 - Hyperlipidemia, unspecified; E78.5 - Hyperlipidemia, unspecified (4) Essential hypertension: Status: Chronic (5) Mild aortic stenosis: Status: Acute (6) Left carotid artery stenosis: Status: Acute Orders: Orders 14 Day Event Recorder Preventi Today SHAHRAM Celaya I48.0 - Paroxysmal atrial fibrillation, I48.91 - Unspecified atrial fibrillation 12 Lead EKG performed by BMS Today SHAHRAM Celaya I48.0 - Paroxysmal atrial fibrillation, I48.91 - Unspecified atrial fibrillation, R07.9 - Chest pain, unspecified, R42 - Dizziness and giddiness Medications: Changed From levothyroxine 175 mcg PO DAILY 90 tabs 1RF To levothyroxine 137 m[address] PO DA[address] Ora Nam MD From rosuvastatin 5 mg PO DAILY 90 tabs 1RF To rosuvastatin [address] Ora Nam MD From amlodipine 5 mg PO ONCE To amlodipine 5 mg PO QDAY Nicol Adkins NP, AIR TUCKER-C Plan 1. Coronary artery disease involving iroquois coronary artery of iroquois heart withangina pectoris: - Intermittent squeezing-type chest pressure; prior negative stress test (May2024) and heart catheterization (March 2023) demonstrating single-vessel diagonalstenosis at 80% with mild disease elsewhere. - Currently managed medically; no acute changes in anti-anginal regimen discussed. 2. Paroxysmal atrial fibrillation: - Recurrent palpitations and episodes of perceived heart racing, potentially related to thyroid fluctuations but also suspicious for ongoing atrial fibrillation given personal and familial history. - Ordered a 14-day ambulatory event monitor to document any arrhythmic episodes. - Reviewed stroke risk based on YELENA?DS?-VASc considerations; if atrial fibrillation is confirmed, will consider initiating a direct oral anticoagulant (e.g., apixaban or rivaroxaban) in place of aspirin. 3. Mixed hyperlipidemia: - Lipid panel reportedly improved with current therapy; no changes indicated. 4. Essential (primary) hypertension: - Blood pressure remains variably controlled with amlodipine 5 mg daily; at times systolic levels drop into the 80s, while occasionally reaching 170s/90s. - Noted episodes of pronounced lightheadedness when amlodipine is taken alongside other medications. - Discussed possible adjustment of other antihypertensives; will monitor pressures and event monitor data before making further modifications. 5. Mild aortic stenosis: - Stable, mild aortic valve stenosis on recent echocardiogram, unchanged from prior studies. - No current intervention indicated, will continue routine cardiac follow-up. 6. Carotid artery disease: - Status post left carotid endarterectomy (August 2022). - No new symptoms or changes reported; no additional management discussed. Plan Details Additional Comments: Thank you for allowing me to participate in the care of your patient. Please don't hesitate to call if any issues arise. This note was generated using a voice recognition system and there may be incorrect words, spelling, or punctuation that were not noted when reviewing theoffice note prior to saving. Portions of this documentation were copied and pasted from previous office visitnotes to provide a cohesive continuity of the history. The note has been reviewed, edited, and updated, as necessary. Follow Up: 08/07/25 (please obtain MR from cardiology in [facility]. ) 08/07/25 ([facility] before leaves for [facility] in September- previous PFM ) Coding Level of Care Code Off vis,est,level 4 Diagnoses Atherosclerotic heart disease of iroquois coronary artery with unspecified angina pectoris I25.119 Paroxysmal atrial fibrillation I48.0 Hyperlipidemia, unspecified hyperlipidemia type E78.5; E78.5; E78.5 Hyperlipidemia type: unspecified Essential hypertension I10 Mild aortic stenosis I35.0 Left carotid artery stenosis I65.22 Coding Level of Care Code Off vis,est,level 4 Diagnoses Atherosclerotic heart disease of iroquois coronary artery with unspecified angina pectoris I25.119 Paroxysmal atrial fibrillation I48.0 Hyperlipidemia, unspecified hyperlipidemia type E78.5; E78.5; E78.5 Hyperlipidemia type: unspecified Essential hypertension I10 Mild aortic stenosis I35.0 Left carotid artery stenosis I65.22 Clinical Quality Measures Falls Risk Screening/Assistive Devices Have you fallen in the past year?: Yes Cardiac Ejection fraction %: 60 08/07/25 1009 <Electronically signed by Gabrielle Avilez> Date _ Gabrielle OMALLEY Cosigner Signature: Date (if applicable) CC: ~ [facility] Work Phone: Progress note Author Ora Nam [facility] Note Date/Time August 14, 2025 1 0:09am [facility] [address] [place], [place] [address] OFFICE VISIT Date of Service: 08/14/25 MR#: [id number] Acct: [id number] Name: MACY DOWNEY VERONICA Rep #: [id number] : 1950 Provider: Dr. Clare Nam MD Age/Sex: 74/F Location: [facility] [place] Status: Signed Intake Vital Signs 10/12/24 12:56 08/07/25 11:27 08/14/25 08:56 Height 5 ft 2 in 5 ft 2 in 5 ft 2 in Weight: 233 lb 4 oz BMI 42.6 BP 120/83 H Blood Pressure Location Lt brachial Position Sitting Respiration 16 Pulse 65 Pulse Source Monitor Temp 98.0 F Temp Source Temporal Pulse Oximetry (%) 98 Oxygen Delivery Method room air Intake Visit Reasons: Annual/Physical Chief Complaint: Abdomina pain, nausea, dizziness, blurry vision Pharmacy Associate Required: No Accompanied by: Is patient in pain?: Yes (Abdominal pain) Pain scale (1-10): 2 Allergies amoxicillin Allergy (Verified 08/14/25 08:46) Unknown duloxetine (From Cymbalta) Allergy (Verified 08/14/25 08:46) neuropathy losartan (Losartan) Allergy (Verified 08/14/25 08:46) Unknown ramipril Allergy (Verified 08/14/25 08:46) Unknown ranitidine HCl (From Zantac) Allergy (Verified 08/14/25 08:46) Unknown meloxicam (From Mobic) Adverse Reaction (Severe, Verified 08/14/25 08:46) Heartburn celecoxib (From Celebrex) Adverse Reaction (Verified 08/14/25 08:46) Upset Stomach cortisone Adverse Reaction (Verified 08/14/25 08:46) emotional issues glimepiride Adverse Reaction (Verified 08/14/25 08:46) Nausea/Vom/Diarrhea metformin HCl (From Glucophage) Adverse Reaction (Verified 08/14/25 08:46) Nausea/Vom/Diarrhea methotrexate Adverse Reaction (Verified 08/14/25 08:46) Unknown Penicillins Adverse Reaction (Verified 08/14/25 08:46) Nausea/Vom/Diarrhea pravastatin Adverse Reaction (Verified 08/14/25 08:46) MUSCLE PAIN Medications ?Medication ?Instructions ?Recorded ?Confirmed ?Type fluticasone propionate 50 1 spray NASAL DAILY PRN Forrest estion 09/29/15 08/14/25 History mcg/actuation nasal spray,suspension cholecalciferol (vitamin D3) 50 5,000 unit PO DAILY PULLIAM PPLEMENT 08/24/17 08/14/25 History mcg (2,000 unit) capsule ascorbate calcium (vitamin C) 500 500 mg PO DAILY SUPP LEMENT 07/10/20 08/14/25 History mg tablet artifi.tears(hypromellose)(PF) 0.3 1 drp ophthalmic (e ye) DAILY PRN 05/31/22 08/14/25 History % eye drops Dry Eye(S) aspirin 81 mg tablet,delayed 81 mg PO QDAY HEART HEALT H 09/09/22 08/14/25 History release (Adult Aspirin Regimen) estradiol 0.1 mg/24 hr semiweekly 0.1 mg topical SUWE MENOPAUSE 09/09/22 08/14/25 History transdermal patch (Vivelle-Dot) ibuprofen 800 mg tablet 800 mg PO BID PRN PAIN 01/1208/14/25 History omeprazole magnesium 20 mg 40 mg PO DAILY GERD 4 08/14/25 History capsule,delayed release (Acid 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)) psyllium husk 0.4 gram capsule 0.4 g PO DAILY PRN cons tipation 05/22/24 08/14/25 History (Metamucil) estradiol 0.01% (0.1 mg/gram) 1 g vaginal 2XW #42.5 gr ams 02/20/25 08/14/25 Rx vaginal cream metoprolol tartrate 100 mg tablet 100 mg PO BID DO NOT USE Aurobin 07/08/25 08/14/25 Rx brand generic #180 tabs amlodipine 5 mg tablet 5 mg PO QDAY 08/07/25 History levothyroxine 175 mcg tablet 137 mcg PO DAILY 08/07/25 08/14/25 History rosuvastatin 5 mg tablet 20 mg PO DAILY 08/07/2507/31 History tirzepatide 5 mg/0.5 mL mg subcut 08/07/25 08/14/25 History subcutaneous pen injector (Rose) ranolazine 500 mg tablet,extended 1,000 mg (2 x 500 mg ) PO .COMPLEX 08/14/25 Rx release,12 hr #360 tabs Have you fallen in the past year?: No PFSH Medical History PONV (postoperative nausea and vomiting) Unilateral vocal cord paralysis Graves disease Thyroid disease Rheumatoid arthritis High cholesterol TIA (transient ischemic attack) History of hiatal hernia Diverticulosis History of colitis Shortness of breath on exertion Chronic cough Leg cramps History of edema Hypertension Epigastric pain Rectal bleeding Dysphagia Abnormal stress test Carotid stenosis Wears glasses Anxiety Cancer Hyperthyroidism Diabetes Bladder leak Hemochromatosis Fatty liver Restless leg Back pain Concussion Mini stroke Light-headedness Dietary restriction Hernia, hiatal Hx of duodenal ulcer Diverticulitis GERD (gastroesophageal reflux disease) Non-smoker History of pain when walking Edema Rheumatic fever Cardiology follow-up encounter H/O echocardiogram History of stress test Obesity Thyroid cancer Asthma Knee pain Cancer Arthritis Postprocedural hypothyroidism Paroxysmal atrial fibrillation Atrial fibrillation Hypothyroidism stem cell replacement Lt knee Essential hypertension Screening for intestinal cancer GERD (gastroesophageal reflux disease) Chest pain, unspecified HTN (hypertension) Left carotid artery stenosis HLD (hyperlipidemia) Diabetes mellitus Fatigue Visual disturbance Pulmonary hypertension Surgical History Cataract fragments in eye following cataract surgery History of left-sided carotid endarterectomy History of left-sided carotid endarterectomy (~09/20/22) Hx of cardiac catheterization History of thyroidectomy, total H/O: hysterectomy History of knee replacement S/P thyroid biopsy (~02/2018) Family History Father CAD (coronary artery disease) Ischemic cardiomyopathy Mother Atrial fibrillation CHF (congestive heart failure) Pulmonary fibrosis Sister Myocardial infarction Diabetes COPD (chronic obstructive pulmonary disease) Hypertension Cancer Pancreatic Brother Cancer Pancreatic CA Diabetes Atrial fibrillation Social History Smoking Status: Never smoker alcohol intake: former substance use type: does not use caffeine: Yes Type: coffee what type of physical activity do you participate in: other details: physical therapy frequency: 1-2 times per week duration: 45-60 minutes/day seatbelt use: always do you feel safe at home: Yes HPI HPI Chief Complaint: Abdomina pain, nausea, dizziness, blurry vision Details: MACY DOWNEY, is a 74 F who presents to the office today for 6-month follow- up,for hypothyroidism, history of thyroid cancer status post thyroidectomy, diabetes, essential hypertension currently on Mounjaro, rosuvastatin, ranolazine, metoprolol 100 mg p.o. twice daily, levothyroxine 137 mcg daily, estradiol, aspirin, amlodipine 5 mg daily. Generally speaking I would say, and she would agree that she seemed to be doing reasonably well the last visit that I had with her. She had been in [place] since last winter. We had appointment for the spring which had to be a canceled. She was following with a primary care physician in [place] as well as cardiology. While in [place], she stated that her primary care physician started adjusting medications including increasing rosuvastatin which was at 5 mg daily which she tolerated, up to 10 mg as he wanted her cholesterol better. Subsequent to that, it was increased to 20 mg daily and since she has been here recently, she has not felt well, and probably traces it back to around the time when her medications were adjusted. Of note she had been on Mounjaro 2.5 mg and was doing well with that, and then it was increased to 5 mg which she was tolerating. She did not tolerated at 7.5 mg and then subsequently went back to 5 mg at the direction of her [place] physician. I was unaware of any difficulties while there, nor any medication adjustments, until now. She also notes that in regards to her medications, [place] senior research analyst had suggested ranolazine a while back and she seemed to get benefit when she went from 9 of that to 500 mg dosing which seemed to help with anginal types of pain. She has not noticed any additional benefits by going up to 1000 mg which she believes was done with cardiology up here. Finally, in May, in [place], her TSH was noted to be suppressed and she was on 175 mcg daily levothyroxine which has now been reduced to 137 mcg daily. Her repeat labs here recently were good. However over the last couple of months she has had some upper abdominal pain, more to the middle to the right side. It was intermittent now constant for the last week. She has nauseous nests, no emesis. Has felt dizzy, lightheaded, more so than ever previous. Sense of blurriness in vision, constipation to somedegree but generally her bowel movements have been doing okay. Saw her senior research analyst local recently, and they have obtained a 14-day event recorder to be placed but has not been started yet. That was done because she had some various types of palpitations symptoms, mostly when in [place]. This included 1 episode, where she had this in the evening/bedtime and she stated that was fairly persistent rapid rhythm. Aside from that she has had intermittent palpitations. Review of systems per chart. Currently no active chest pain although again froman anginal standpoint, she did seem to get some benefit when she first went on to ranolazine but still has some persistent overall discomfort that would come and go. He is not having shortness of breath, high-grade fevers, shaking chills. Physical exam. Vital signs on chart. Well no nystagmus, she did get nauseous looking to the sides. PERRLA. Sclera are clear. TMs are unremarkable with normal light reflexes. Canals are unremarkable. Posterior pharynx is unremarkable. Good dentition. No cervical or supraclavicular lymph nodes enlarged or tender. No clear thyromegaly. No thyroid nodules readily palpable. Lungs are without wheeze, rhonchi, rales. No E/A changes are heard. Heart is regular. Not tachycardic. No clear murmur, rub, or gallop is identified. The abdomen is soft. Bowel sounds are present. Positive Tripathi sign. Mild to moderate upper abdominal diffuse tenderness, most tender right upper quadrant. No clear palpable masses in the abdomen. No significant leg edema. ROS Const Constitutional: Positive for abnormal sleep pattern; No body ache, chills, excessive sweating, fatigue, fever(s), frequent falls, headache(s), snoring, weakness or change in appetite Eyes Eyes: Positive for blurry vision; No change in vision, eye pain or Light sensitivity ENT ENT: Positive for dizziness/vertigo; No abnormal hearing, ear or mastoid pain, tinnitus, nasal congestion, headache(s), neck pain or sore throat Resp Respiratory: No cough, shortness of breath, snoring or wheezing Cardio Cardiology: Positive for dyspnea on exertion and lightheadedness; No chest pain at rest, chest pain with exertion, excessive sweating, orthopnea or palpitations Gastro GI: Positive for abdominal pain, constipation, diarrhea and nausea/dyspepsia; No change in bowel habits, cramping or vomiting Genitourinary-Female: No burning urination, painful urination, urinary incontinence or urinary frequency Musc Musculoskeletal: No abnormal gait, joint pain, back pain, limited range of motion, muscle weakness, neck pain or numbness Skin Skin: No dry skin, redness, lesions, itchy eyes, rash or wounds Neuro Neurology: No abnormal gait, abnormal hearing, weakness, frequent falls, headache(s), memory loss or numbness Psych Psychiatric: Positive for abnormal sleep pattern, No anxiety, No change in appetite, No depression, No memory loss and No Thoughts of harming yourself/Others Endo Endocrine: No cold intolerance, excessive sweating, fatigue, flushing, heat intolerance, increased thirst/drinking or increased hunger Aller/Imm Allergy/Immunologic: No itchy eyes, seasonal allergy symptoms, hives or wheezing Ed/Lymp Hematologic/Lymphatic: No easy bleeding or easy bruising Coding Level of Care Code Off vis,est,level 4 Diagnoses RUQ pain R10.11 Nausea R11.0 Type 2 diabetes mellitus with hyperglycemia, without long-term current use of insulin E11.65 Diabetes mellitus type: type 2 Diabetes mellitus [facility] insulin use: without terminal operations manager use Diabetes mellitus complication status: with hyperglycemia Fatigue R53.83 Hyperlipidemia, unspecified hyperlipidemia type E78.5; E78.5; E78.5 Hyperlipidemia type: unspecified Essential hypertension I10 Postoperative hypothyroidism E89.0 Hypothyroidism type: postoperative Paroxysmal atrial fibrillation I48.0 Class 3 severe obesity due to excess calories with serious comorbidity and body mass index (BMI) of 45.0 to 49.9 in adult E66.01; Z68.42 Obesity type: due to excess calories Obesity classification: adult class 3 (BMI >= 40) Serious obesity comorbidity presence: with serious comorbidity Body mass index: BMI 45.0-49.9 Time Spent (min) 40 Assessment and Plan Assessment and Plan (1) RUQ pain: Status: Acute (2) Nausea: Status: Acute (3) Diabetes mellitus: Status: Chronic Qualifiers: Diabetes mellitus type: type 2 Diabetes mellitus [facility] insulin use:without terminal operations manager use Diabetes mellitus complication status: with hyperglycemia Qualified Code(s): E11.65 - Type 2 diabetes mellitus with hyperglycemia (4) Fatigue: Status: Chronic (5) HLD (hyperlipidemia): Status: Chronic Qualifiers: Hyperlipidemia type: unspecified Qualified Code(s): E78.5 - Hyperlipidemia, unspecified; E78.5 - Hyperlipidemia, unspecified; E78.5 - Hyperlipidemia, unspecified (6) Essential hypertension: Status: Chronic (7) Hypothyroidism: Status: Chronic Qualifiers: Hypothyroidism type: postoperative Qualified Code(s): E89.0 - Postprocedural hypothyroidism (8) Paroxysmal atrial fibrillation: Status: Acute (9) Obesity: Status: Chronic Qualifiers: Obesity type: due to excess calories Obesity classification: adult class 3 (BMI >= 40) Serious obesity comorbidity presence: with serious comorbidity Body mass index: BMI 45.0-49.9 Qualified Code(s): E66.01 - Morbid (severe) obesity due to excess calories; Z68.42 - Body mass index [BMI] 45.0-49.9, adult Orders: Orders Comprehensive Metabolic Profil Today R10.11 - Right upper quadrant pain, R11.0 - Nausea CBC W/Diff, Automated Today R10.11 - Right upper quadrant pain, R11.0 - Nausea Abdomen Limited Today R10.11 - Right upper quadrant pain, R11.0 - Nausea Plan Details Additional Comments: Patient was in today for annual follow-up. However over the last week, she has had constant right upper abdominal pain. She has had intermittent upper abdominal pain, with some mild nauseous but now more persistent nausea over the last week or so, dizziness, lightheaded feeling, some mild vertiginous symptoms. No vomiting, no diarrhea. She is also on Mounjaro at 5 mg weekly. Took it on Tuesday. Did not notice any significant worsening of her nauseousness symptoms and has not noticed that recently when she takes her injection or the couple of days after. I would suggest we repeat her CMP, CBC today, and arrange stat ultrasound right upper quadrant today. If this is unremarkable then HIDA scan is warranted as we discussed. May need surgical opinion. In regards to some of her symptoms and the other medications I suggest she stop rosuvastatin for now, and reduce ranolazine to 500 mg daily. Again thyroid hormones recently were stable on current dose of 137 mcg daily. No other significant medication adjustments today. Await labs, ultrasound and further recommendations to follow. 40 minutes total time this visit. Clinical Quality Measures Falls Risk Screening/Assistive Devices Have you fallen in the past year?: No 08/14/25 1024 <Electronically signed by Ora alva MD> Date _ Ora Nam MD Cosigner Signature: Date (if applicable) CC: ~ [facility] Work Phone: Reason for referral (narrative)* Diagnostic Procedure Only (Routine) - Authorized Specialty Diagnoses / Procedures Referred By Contac t Referred To Contact [facility] Diagnoses Encounter for screening mammogram for malignant neoplasm of breast Procedures GINA SCREENING W CHARLY SCREENING DIGITAL BREAST TOMOSYNTHESIS BI SCREENING MAMMOGRAPHY BI 2-VIEW BREAST INC CAD Angelica Esqueda MD [address] [place] [address] [facility] [address] [place] [address] Referral ID Status Reason Start Date Expiration Date Visits Requested Visits Authorized [id number] Authorized Auto-Generat ed Referral 01/04/2023 02/03/2024 1 1 [facility] for referral (narrative)* Diagnostic Procedure Only (Routine) - Closed Specialty Diagnoses / Procedures Referred By Contac t Referred To Contact [facility] Diagnoses Encounter for screening mammogram for malignant neoplasm of breast Procedures GINA SCREENING W CHARLY SCREENING DIGITAL BREAST TOMOSYNTHESIS BI SCREENING MAMMOGRAPHY BI 2-VIEW BREAST INC CAD Angelica Esqueda MD [address] [place] [address] [facility] [address] [place] [address] Referral ID Status Reason Start Date Expiration Date V isits Requested Visits Authorized [id number] Closed Auto-Generate d Referral 01/04/2023 02/03/2024 1 1 [facility] for referral (narrative)* Diagnostic Procedure Only (Routine) - Authorized Specialty Diagnoses / Procedures Referred By Contac t Referred To Contact [facility] Diagnoses Encounter for screening mammogram for malignant neoplasm of breast Procedures GINA SCREENING W CHARLY SCREENING DIGITAL BREAST TOMOSYNTHESIS BI SCREENING MAMMOGRAPHY BI 2-VIEW BREAST INC CAD Ree Fletcher MD [address] [place] [address] [facility] [address] [place] [address] Referral ID Status Reason Start Date Expiration Date Visits Requested Visits Authorized [id number] Authorized Auto-Generat ed Referral 07/30/2024 08/29/2025 1 1 [facility] for referral (narrative)* Diagnostic Procedure Only (Routine) - Authorized Specialty Diagnoses / Procedures Referred By Joy junior Referred To Contact [facility] Diagnoses Encounter for screening mammogram for malignant neoplasm of breast Procedures GINA SCREENING W CHARLY SCREENING DIGITAL BREAST TOMOSYNTHESIS BI SCREENING MAMMOGRAPHY BI 2-VIEW BREAST INC CAD Ree Fletcher MD [address] [place] [address] [facility] [address] [place] [address] Referral ID Status Reason Start Date Expiration Date Visits Requested Visits Authorized [id number] Authorized Auto-Generat ed Referral 09/26/2025 1 1 [facility] for referral (narrative)* Diagnostic Procedure Only (Routine) - New Request Specialty Diagnoses / Procedures Referred By Joy junior Referred To Contact [facility] Diagnoses Abnormal mammogram Procedures US BREAST LTD RIGHT US BREAST UNI REAL TIME WITH IMAGE LIMITED Rachell Bartholomew MD [address] [place] [address] [facility] [address] [address] Referral ID Status Reason Start Date Expiration Date Visits Requested Visits Authorized [id number] New Request Auto-Generat ed Referral 4 09/27/2025 1 1 * Diagnostic Procedure Only (Routine) - New Request Specialty Diagnoses / Procedures Referred By Joy junior Referred To Contact [facility] Diagnoses Abnormal mammogram Procedures GINA DIAGNOSTIC RIGHT DIAGNOSTIC MAMMOGRAPHY COMPUTER-AIDED DETCJ UNI Rachell Bartholomew MD [address] [place] [address] [facility] [address] [place] [phone] Referral ID Status Reason Start Date Expiration Date Visits Requested Visits Authorized [id number] New Request Auto-Generat ed Referral 4 09/27/2025 1 1 [facility] for referral (narrative)* Diagnostic Procedure Only (Routine) - Authorized Specialty Diagnoses / Procedures Referred By Contac t Referred To Contact [facility] Diagnoses Category 3 mammography result with short follow-up interval suggested for probably benign finding Procedures US BREAST LTD RIGHT US BREAST UNI REAL TIME WITH IMAGE LIMITED Ree Fletcher MD [address] [place] [address] [facility] [address] [id number] Referral ID Status Reason Start Date Expiration Date Visits Requested Visits Authorized [id number] Authorized Auto-Generat ed Referral 4 11/11/2025 1 1 * Diagnostic Procedure Only (Routine) - Authorized Specialty Diagnoses / Procedures Referred By Joy junior Referred To Contact [facility] Diagnoses Category 3 mammography result with short follow-up interval suggested for probably benign finding Procedures GINA DIAGNOSTIC RIGHT DIAGNOSTIC MAMMOGRAPHY COMPUTER-AIDED DETCJ UNI Ree Fletcher MD [address] [place] [address] [facility] [address] [place] [address] Referral ID Status Reason Start Date Expiration Date Visits Requested Visits Authorized [id number] Authorized Auto-Generat ed Referral 4 11/11/2025 1 1 [facility] for referral (narrative)No reason for referral information [facility] Work Phone: Rezlvd for visit Narrative* Diagnostic Procedure Only (Routine) - Closed Specialty Diagnoses / Procedures Referred By Joy junior Referred To Contact [facility] Diagnoses Encounter for screening mammogram for malignant neoplasm of breast Procedures GINA SCREENING W CHARLY SCREENING DIGITAL BREAST TOMOSYNTHESIS BI SCREENING MAMMOGRAPHY BI 2-VIEW BREAST INC Angelica Garcia MD [address] [place] [address] [facility] [address] [place] [address] Referral ID Status Reason Start Date Expiration Date V isits Requested Visits Authorized [id number] Closed Auto-Generate d Referral 01/04/2023 02/03/2024 1 1 [facility] for visit Narrative* Diagnostic Procedure Only (Routine) - Closed Specialty Diagnoses / Procedures Referred By Contac t Referred To Contact [facility] Diagnoses Encounter for screening mammogram for malignant neoplasm of breast Procedures GINA SCREENING W CHARLY SCREENING DIGITAL BREAST TOMOSYNTHESIS BI SCREENING MAMMOGRAPHY BI 2-VIEW BREAST INC Ree Hawkins MD [address] [place] [address] [facility] [address] [place] [address] Referral ID Status Reason Start Date Expiration Date V isits Requested Visits Authorized [id number] Closed Auto-Generate d Referral 07/30/2024 08/29/2025 1 1 [facility] for visit Narrative* Diagnostic Procedure Only (Routine) - Closed Specialty Diagnoses / Procedures Referred By Contac t Referred To Contact [facility] Diagnoses Abnormal mammogram Procedures GINA DIAGNOSTIC RIGHT DIAGNOSTIC MAMMOGRAPHY COMPUTER-AIDED DETCJ UNI Rachell Bartholomew MD [address] [place] [address] [facility] [address] [place] [address] Referral ID Status Reason Start Date Expiration Date V isits Requested Visits Authorized [id number] Closed Auto-Generate d Referral 08/28/2024 09/27/2025 1 1 [facility] Chief Complaint and Reason for Visit Chief Complaint EORDER CHECK UP FOLLOW UP Reason for Visit GERD (gastroesophage al reflux disease) Obesity Thyroid cancer Diabetes mellitus Essential hypertension Fatigue HLD (hyperlipidemia) Hypothyroidism Obesity Thyroid cancer Diabetes mellitus Hypothyroidism Chief Complaint EORDER CHECK UP FOLLOW UP LEFT CAROTID ARTERY STENOSIS-AFIB/FLUTTER FU CAROTID US 06/09 Reason for Visit GERD (gastroesophage al reflux disease) Obesity Thyroid cancer Diabetes mellitus Essential hypertension Fatigue HLD (hyperlipidemia) Hypothyroidism Obesity Thyroid cancer Diabetes mellitus Hypothyroidism Left carotid artery stenosis Chief Complaint EORDER CHECK UP FOLLOW UP LEFT CAROTID ARTERY STENOSIS-AFIB/FLUTTER FU CAROTID US 08/ STENOSIS OF LEFT CAROTID ARTERY VASC F/U DISCUSS CTA LEFT FOOT PAIN XRAY Evaluation of Pain LEFT LEG SWELLING Reason for Visit GERD (gastroesophage al reflux disease) Obesity Thyroid cancer Diabetes mellitus Essential hypertension Fatigue HLD (hyperlipidemia) Hypothyroidism Obesity Thyroid cancer Diabetes mellitus Hypothyroidism Left carotid artery stenosis Left carotid artery stenosis Arthritis of left foot Strain of left foot Arthritis of left foot Leg swelling Obesity Diabetes mellitus Essential hypertension Graves disease Hypothyroidism Chief Complaint EORDER CHECK UP FOLLOW UP LEFT CAROTID ARTERY STENOSIS-AFIB/FLUTTER FU CAROTID US 08/ STENOSIS OF LEFT CAROTID ARTERY VASC F/U DISCUSS CTA LEFT FOOT PAIN XRAY Evaluation of Pain LEFT LEG SWELLING 3 M FU LT CAROTID ENDARTERECTOMY LT CAROTID ENDARTERECTOMY LT CAROTID ENDARTERECTOMY Reason for Visit GERD (gastroesophage al reflux disease) Obesity Thyroid cancer Diabetes mellitus Essential hypertension Fatigue HLD (hyperlipidemia) Hypothyroidism Obesity Thyroid cancer Diabetes mellitus Hypothyroidism Left carotid artery stenosis Left carotid artery stenosis Arthritis of left foot Strain of left foot Arthritis of left foot Leg swelling Obesity Diabetes mellitus Essential hypertension Graves disease Hypothyroidism Postprocedural hypothyroidism Thyroid cancer Diabetes mellitus Essential hypertension HLD (hyperlipidemia) Left carotid artery stenosis Pulmonary hypertension Left carotid artery stenosis Chief Complaint PRE OP 3 M FU LT CAROTID ENDARTERECTOMY LT CAROTID ENDARTERECTOMY LT CAROTID ENDARTERECTOMY CAROTID FU 3 M FU 1 Y FU Incision check L carotid 09/20 CAROTID STENOSIS recheck carotid/suture spit--RC to check also GENERAL ILLNESS Reason for Visit Left carotid artery stenosis Postprocedural hypothyroidism Thyroid cancer Diabetes mellitus Essential hypertension HLD (hyperlipidemia) Pulmonary hypertension Left carotid artery stenosis Left carotid artery stenosis Obesity Postprocedural hypothyroidism Thyroid cancer Diabetes mellitus Essential hypertension Chest pain in adult Paroxysmal atrial fibrillation Essential hypertension HLD (hyperlipidemia) Pulmonary hypertension Spitting suture Lightheadedness Spitting suture Chief Complaint 1 Y FU Incision check L carotid 09/20 CAROTID STENOSIS recheck carotid/suture spit--RC to check also GENERAL ILLNESS 4 M FU Reason for Visit Chest pain in adult Paroxysmal atrial fibrillation Essential hypertension HLD (hyperlipidemia) Pulmonary hypertension Spitting suture Lightheadedness Spitting suture GERD (gastroesophageal reflux disease) Headache Paroxysmal atrial fibrillation Postprocedural hypothyroidism Diabetes mellitus Essential hypertension Hypothyroidism Chief Complaint recheck carotid/sutu re spit--RC to check also GENERAL ILLNESS 4 M FU CAROTID STENOSIS Reason for Visit Lightheadedness Spitting suture GERD (gastroesophageal reflux disease) Headache Paroxysmal atrial fibrillation Postprocedural hypothyroidism Diabetes mellitus Essential hypertension Hypothyroidism Chief Complaint GENERAL ILLNESS 4 M FU CAROTID STENOSIS CHEST PAIN CHEST PAIN Update H&P /Cath Teaching 4 M FU ABN STRESS CHEST PAIN Reason for Visit GERD (gastroesophage al reflux disease) Headache Paroxysmal atrial fibrillation Diabetes mellitus Essential hypertension Hypothyroidism Postprocedural hypothyroidism Abnormal stress test Chest pain in adult Paroxysmal atrial fibrillation Essential hypertension HLD (hyperlipidemia) Pulmonary hypertension Diabetes mellitus Essential hypertension HLD (hyperlipidemia) Obesity Postprocedural hypothyroidism Thyroid cancer Chief Complaint 4 M FU CAROTID STENOSIS CHEST PAIN CHEST PAIN Update H&P /Cath Teaching 4 M FU ABN STRESS CHEST PAIN CAROTID US 5/10 EORDER Reason for Visit GERD (gastroesophage al reflux disease) Headache Paroxysmal atrial fibrillation Diabetes mellitus Essential hypertension Hypothyroidism Postprocedural hypothyroidism Abnormal stress test Chest pain in adult Paroxysmal atrial fibrillation Essential hypertension HLD (hyperlipidemia) Pulmonary hypertension Diabetes mellitus Essential hypertension HLD (hyperlipidemia) Obesity Postprocedural hypothyroidism Thyroid cancer Left carotid artery stenosis Chief Complaint Update H&P /Cath Tea rachna 4 M FU ABN STRESS CHEST PAIN CAROTID US 5/10 EORDER EORDER 3 M FU Reason for Visit Abnormal stress test Chest pain in adult Paroxysmal atrial fibrillation Essential hypertension HLD (hyperlipidemia) Pulmonary hypertension Diabetes mellitus Essential hypertension HLD (hyperlipidemia) Obesity Postprocedural hypothyroidism Thyroid cancer Left carotid artery stenosis Diabetes mellitus Essential hypertension HLD (hyperlipidemia) Obesity Postprocedural hypothyroidism Thyroid cancer Chief Complaint 4 M FU ABN STRESS CHEST PAIN CAROTID US 5/10 EORDER EORDER 3 M FU 6 M FU E ORDER 2 ORDERING DOCTORS 4 M FU Reason for Visit Diabetes mellitus Essential hypertension HLD (hyperlipidemia) Obesity Postprocedural hypothyroidism Thyroid cancer Left carotid artery stenosis Diabetes mellitus Essential hypertension HLD (hyperlipidemia) Obesity Postprocedural hypothyroidism Thyroid cancer Exhaustion Left carotid artery stenosis Chest pain, unspecified Diabetes mellitus Essential hypertension Fatigue Postprocedural hypothyroidism Thyroid cancer [id number] [id number] (dyspnea on exertion) Paroxysmal atrial fibrillation Chest pain, unspecified Essential hypertension Fatigue HLD (hyperlipidemia) Chief Complaint EORDER EORDER 3 M FU 6 M FU E ORDER 2 ORDERING DOCTORS 4 M FU R06.09 Other forms of dyspnea Amb Documentation Reason for Visit Diabetes mellitus Essential hypertension HLD (hyperlipidemia) Obesity Postprocedural hypothyroidism Thyroid cancer Exhaustion Left carotid artery stenosis Chest pain, unspecified Diabetes mellitus Essential hypertension Fatigue Postprocedural hypothyroidism Thyroid cancer [id number] RIBERA (dyspnea on exertion) Paroxysmal atrial fibrillation Chest pain, unspecified Essential hypertension Fatigue HLD (hyperlipidemia) Chief Complaint EORDER 3 M FU 6 M FU E ORDER 2 ORDERING DOCTORS 4 M FU R06.09 Other forms of dyspnea Amb Documentation Reason for Visit Diabetes mellitus Essential hypertension HLD (hyperlipidemia) Obesity Postprocedural hypothyroidism Thyroid cancer Exhaustion Left carotid artery stenosis Chest pain, unspecified Diabetes mellitus Essential hypertension Fatigue Postprocedural hypothyroidism Thyroid cancer [id number] RIBERA (dyspnea on exertion) Paroxysmal atrial fibrillation Chest pain, unspecified Essential hypertension Fatigue HLD (hyperlipidemia) Chief Complaint EORDER 3 M FU 6 M FU E ORDER 2 ORDERING DOCTORS 4 M FU R06.09 Other forms of dyspnea Amb Documentation 3 M FU E ORDERS Reason for Visit Diabetes mellitus Essential hypertension HLD (hyperlipidemia) Obesity Postprocedural hypothyroidism Thyroid cancer Exhaustion Left carotid artery stenosis Chest pain, unspecified Diabetes mellitus Essential hypertension Fatigue Postprocedural hypothyroidism Thyroid cancer [id number] RIBERA (dyspnea on exertion) Paroxysmal atrial fibrillation Chest pain, unspecified Essential hypertension Fatigue HLD (hyperlipidemia) [id number] RIBERA (dyspnea on exertion) Paroxysmal atrial fibrillation Chest pain, unspecified Essential hypertension Fatigue HLD (hyperlipidemia) Chief Complaint Admit Date ROUTINE CAROTID July 31, 2025 12 :43pm EORDERS August 05, 2025 3: 04pm Chief Complaint Admit Date ROUTINE CAROTID July 31, 2025 12 :43pm EORDERS August 05, 2025 3: 04pm 6 M FU August 07, 2025 9: 08am Reason for Visit Admit Date Atherosclerotic heart diseas e of [place] coronary artery with unspecified an August 07, 2025 9:08am Left carotid artery stenosis July 9:08am Mild aortic stenosis August 07, 2025 9 :08am Paroxysmal atrial fibrillation August [id number] 9:08am Essential hypertension August 07, 2025 9:08am HLD (hyperlipidemia) August 07, 2025 9 :08am Chief Complaint Admit Date ROUTINE CAROTID July 31, 2025 12 :43pm EORDERS August 05, 2025 3: 04pm 6 M FU August 07, 2025 9: 08am yearly estrogen cream August 07, 2025 11:15am Chief Complaint Admit Date ROUTINE CAROTID July 31, 2025 12 :43pm EORDERS August 05, 2025 3: 04pm 6 M FU August 07, 2025 9: 08am yearly estrogen cream August 07, 2025 11:15am Annual/Physical August 14, 2025 8 :42am RUQ PAIN, NAUSEA August 14, 2025 1 1:06am AFIB August 15, 2025 8 :55am Reason for Visit Admit Date Atherosclerotic heart diseas e of [place] coronary artery with unspecified an August 07, 2025 9:08am Left carotid artery stenosis July 9:08am Mild aortic stenosis August 07, 2025 9 :08am Paroxysmal atrial fibrillation August [id number] 9:08am Essential hypertension August 07, 2025 9:08am HLD (hyperlipidemia) August 07, 2025 9 :08am Frequency of micturition August 07 11:15am Mixed incontinence August 07, 2025 11 :15am Nocturia August 07, 2025 11 :15am Urgency of urination August 07, 2025 1 1:15am Urinary tract infection August 07 11:15am Vaginal atrophy August 07, 2025 11 :15am Nausea August 14, 2025 8 :42am Paroxysmal atrial fibrillation July [id number] 8:42am RUQ pain August 14, 2025 8 :42am Diabetes mellitus August 14, 2025 8 :42am Essential hypertension August 14 8:42am Fatigue August 14, 2025 8 :42am HLD (hyperlipidemia) August 14, 2025 8:42am Hypothyroidism August 14, 2025 8 :42am Obesity August 14, 2025 8 :42am Family History No Family History Records Found Relationship Condition Age at Onset Recorded Date/T alexis father Coronary artery disease Unknown Ischemic cardiomyopathy Unknown mother Atrial fibrillation Unknown Congestive heart failure Unknown Fibrosis of lung Unknown sister Myocardial infarction Unknown Diabetes mellitus Unknown Joshua's disease Unknown Chronic obstructive pulmonary disease Unk nown Hypertension Unknown brother Malignant neoplasm Unknown Atrial fibrillation Unknown Relationship Condition Age at Onset Recorded Date/T alexis father Coronary artery disease Unknown Ischemic cardiomyopathy Unknown mother Atrial fibrillation Unknown Congestive heart failure Unknown Fibrosis of lung Unknown sister Myocardial infarction Unknown Diabetes mellitus Unknown Chronic obstructive pulmonary disease Unk nown Hypertension Unknown Malignant neoplasm Unknown brother Malignant neoplasm Unknown Atrial fibrillation Unknown Advance Directives No Advanced Directives Records Found Advance Directive Response Recorded Date/ Time Living Will Yes October 14, 021 5:56pm Power of Fiscal Manager Yes October 14, 2021 5:56pm Advance Directive Response Recorded Date/ Time Name of Medical Power of Fiscal Manager francis downey September 20, 2022 2:53pm Living Will Yes September 20, 022 2:53pm Power of Fiscal Manager Yes September 20, 2022 2:53pm Advance Directive Response Recorded Date/ Time Name of Medical Power of Fiscal Manager francis downey September 20, 2022 2:53pm Living Will No December 12 023 10:36am Power of Fiscal Manager No December 12, 2022 10:36am Advance Directive Response Recorded Date/ Time Living Will No December 12 11:36am Power of Fiscal Manager No December 12, 2022 11:36am Advance Directive Response Recorded Date/ Time Advance Directives on File Yes April 05, 2023 7:15am Name of Medical Power of Fiscal Manager Francis Beck usband April 05, 2023 7:15am Advance Directives Yes April 05 7:15am Living Will Yes April 05, 2023 7 :15am Power of Fiscal Manager Yes April 05, 2023 7:15am Advance Directive Response Recorded Date/ Time Advance Directives Yes April 05 7:15am Living Will Yes April 05, 2023 7 :15am Power of Fiscal Manager Yes April 05, 2023 7:15am Advance Directive Response Recorded Date/ Time Advance Directives Yes April 05 6:15am Living Will Yes April 05, 2023 6 :15am Power of Fiscal Manager Yes April 05, 2023 6:15am Advance Directive Response Recorded Date/ Time Living Will Yes April 05, 2023 7 :15am Do you have a Healthcare Power of Fiscal Manager? Yes April 05, 2023 7:15am Advance Directives Yes April 05 7:15am Reason for Referral Specialty Diagnoses / Procedures Referred By Joy junior Referred To Contact Orthopedics Diagnoses Pyogenic granuloma Procedures CONSULT TO ORTHOPAEDICS OFFICE/OUTPATIENT [facility] MDM 60-[address] [place] [address] [place] [address] Referral ID Status Reason Start Date Expiration Date Visits Requested Visits Authorized [id number] Authorized PCP Requested Referral 05/02/2023 05/01/2024 1 1 Specialty Diagnoses / Procedures Referred By Joy junior [facility] Diagnoses Onychocryptosis Controlled type 2 diabetes mellitus without complication, without long-term current use of insulin (HCC) Diminished pulses in lower extremity Procedures PVR ANK PRESS [facility] NON-INVAS PHYSIOLOGIC STD EXTREMITY ART 2 LEVEL Perez [address] [place] [address] [facility] [address] [place] [address] Referral ID Status Reason Start Date Expiration Date Visits Requested Visits Authorized [id number] Authorized Auto-Generat ed Referral 05/02/2023 05/01/2024 1 1 Summary Purpose Additional Source Comments Source Comments (unrecognize d section and content) In the event this informatio n is protected by the Federal Confidentiality of Alcohol and Drug Abuse Patient Records regulations: The Federal rules restrict any use of the information to criminally investigate or prosecute any alcohol or drug abuse patient.[facility] the event this information is protected by the Federal Confidentiality of Alcohol and Drug Abuse Patient Records regulations: The Federal rules restrict any use of the information to criminally investigate or prosecute any alcohol or drug abuse patient.[facility] the event this information is protected by the Federal Confidentiality of Alcohol and Drug Abuse Patient Records regulations: The Federal rules restrict any use of the information to criminally investigate or prosecute any alcohol or drug abuse patient.[facility] the event this information is protected by the Federal Confidentiality of Alcohol and Drug Abuse Patient Records regulations: The Federal rules restrict any use of the information to criminally investigate or prosecute any alcohol or drug abuse patient.[facility] the event this information is protected by the Federal Confidentiality of Alcohol and Drug Abuse Patient Records regulations: The Federal rules restrict any use of the information to criminally investigate or prosecute any alcohol or drug abuse patient.[facility] the event this information is protected by the Federal Confidentiality of Alcohol and Drug Abuse Patient Records regulations: The Federal rules restrict any use of the information to criminally investigate or prosecute any alcohol or drug abuse patient.[facility] the event this information is protected by the Federal Confidentiality of Alcohol and Drug Abuse Patient Records regulations: The Federal rules restrict any use of the information to criminally investigate or prosecute any alcohol or drug abuse patient.[facility] the event this information is protected by the Federal Confidentiality of Alcohol and Drug Abuse Patient Records regulations: The Federal rules restrict any use of the information to criminally investigate or prosecute any alcohol or drug abuse patient.[facility] the event this information is protected by the Federal Confidentiality of Alcohol and Drug Abuse Patient Records regulations: The Federal rules restrict any use of the information to criminally investigate or prosecute any alcohol or drug abuse patient.[facility] the event this information is protected by the Federal Confidentiality of Alcohol and Drug Abuse Patient Records regulations: The Federal rules restrict any use of the information to criminally investigate or prosecute any alcohol or drug abuse patient.[facility] the event this information is protected by the Federal Confidentiality of Alcohol and Drug Abuse Patient Records regulations: The Federal rules restrict any use of the information to criminally investigate or prosecute any alcohol or drug abuse patient.[facility] the event this information is protected by the Federal Confidentiality of Alcohol and Drug Abuse Patient Records regulations: The Federal rules restrict any use of the information to criminally investigate or prosecute any alcohol or drug abuse patient.[facility] the event this information is protected by the Federal Confidentiality of Alcohol and Drug Abuse Patient Records regulations: The Federal rules restrict any use of the information to criminally investigate or prosecute any alcohol or drug abuse patient.[facility] the event this information is protected by the Federal Confidentiality of Alcohol and Drug Abuse Patient Records regulations: The Federal rules restrict any use of the information to criminally investigate or prosecute any alcohol or drug abuse patient.[facility] the event this information is protected by the Federal Confidentiality of Alcohol and Drug Abuse Patient Records regulations: The Federal rules restrict any use of the information to criminally investigate or prosecute any alcohol or drug abuse patient.[facility] the event this information is protected by the Federal Confidentiality of Alcohol and Drug Abuse Patient Records regulations: The Federal rules restrict any use of the information to criminally investigate or prosecute any alcohol or drug abuse patient.[facility] the event this information is protected by the Federal Confidentiality of Alcohol and Drug Abuse Patient Records regulations: The Federal rules restrict any use of the information to criminally investigate or prosecute any alcohol or drug abuse patient.[facility] the event this information is protected by the Federal Confidentiality of Alcohol and Drug Abuse Patient Records regulations: The Federal rules restrict any use of the information to criminally investigate or prosecute any alcohol or drug abuse patient.[facility] the event this information is protected by the Federal Confidentiality of Alcohol and Drug Abuse Patient Records regulations: The Federal rules restrict any use of the information to criminally investigate or prosecute any alcohol or drug abuse patient.[facility] the event this information is protected by the Federal Confidentiality of Alcohol and Drug Abuse Patient Records regulations: The Federal rules restrict any use of the information to criminally investigate or prosecute any alcohol or drug abuse patient.[facility] the event this information is protected by the Federal Confidentiality of Alcohol and Drug Abuse Patient Records regulations: The Federal rules restrict any use of the information to criminally investigate or prosecute any alcohol or drug abuse patient.[facility] the event this information is protected by the Federal Confidentiality of Alcohol and Drug Abuse Patient Records regulations: The Federal rules restrict any use of the information to criminally investigate or prosecute any alcohol or drug abuse patient.[facility] the event this information is protected by the Federal Confidentiality of Alcohol and Drug Abuse Patient Records regulations: The Federal rules restrict any use of the information to criminally investigate or prosecute any alcohol or drug abuse patient.[facility] Reason for Visit (unrecogniz ed section and content) Specialty Diagnoses / Procedures Referred By Contac t Referred To Contact Diagnoses Thyroid cancer (HCC) Family history of cancer Procedures CONSULT TO [facility] CANCER GENETIC COUNSELING GENETIC COUNSELING 30 MIN Ree Fletcher MD [address] [place] [address] [address] Referral ID Status Reason Start Date Expiration Date V isits Requested Visits Authorized [id number] Closed PCP Requested Referral Auto-Generated Referral 11/09/2021 11/09/2022 1 1 Reason Comments Results genetic testing Reason Comments Medication Problem Reason Comments Refill Request Reason Onset Date Comments Refill Request 12/14/2022 Reason Comments Orders Reason Comments New Ingrown Toenail Diabetic Foot Check Reason Onset Date Comments Refill Request 02/16/2024 Reason Comments Med Change Request Reason Comments Insurance Authorization Reason Comments Well Woman Reason Comments Mammogram Result Call Back Reason Comments Results Reason Comments Orders Diagnostic Mammogram Care Teams (unrecognized sec tion and content) [employer] Relationship Specialty Start Date End Date Pcp, No PCP - General 07/01/21 01/28/22 Team Status: Active Member Role Status Dates Dr. Evert Reid MD Family Provider Active Dr. Ora Nam MD Primary Care Provider Active Team Status: Inactive Member Role Status Dates Dr. Ora Nam MD Primary Care Provider, Referri ng Provider Active Dr. Hernesto Brar MD Attending Provider Active Team Status: Inactive Member Role Status Dates Dr. Ora Nam MD Primary Care Provider, Attendi ng Provider Active Team Status: Inactive Member Role Status Dates Dr. Ora Nam MD Primary Care Provider, Referri ng Provider Active Dr. Wilfred Leggett MD Attending Provider Active Team Status: Active Member Role Status Dates Dr. Ora Nam MD Primary Care Provider Active Dr. Rusty Sawyer MD Admit Provider, Attending Provider, Referring Provider, Other Provider Active Team Status: Inactive Member Role Status Dates Dr. rOa Nam MD Primary Care Provider, Referri ng Provider Active Celia OMALLEY PA-C Attending Provider Active Team Status: Active Member Role Status Dates Dr. Ora Nam MD Primary Care Provider Active Dr. Rusty Sawyer MD Attending Provider Active Celia OMALLEY PA-C Referring Provider Active Team Status: Active Member Role Status Dates Dr. Ora Nam MD Primary Care Provider Active Dr. Hernesto Brar MD Attending Provider Active Dr. Rusty Sawyer MD Referring Provider Active Team Status: Inactive Member Role Status Dates Dr. Ora Nam MD Primary Care Provider Active Dr. Rutsy Sawyer MD Admit Provider, Attending Provider, Referring Provider Active Team Status: Inactive Member Role Status Dates Dr. Ora Nam MD Primary Care Provider Active Celia OMALLEY PA-C Attending Provider, Referring Provider Active Team Status: Inactive Member Role Status Dates Dr. Ora Nam MD Primary Care Provider Active Dr. Robson Carr DO Emergency Provider Active Team Status: Inactive Member Role Status Dates Dr. Ora Nam MD Primary Care Provider Active Dr. Robson Carr DO Attending Provider, Emergency Provide r Active Team Status: Inactive Member Role Status Dates Dr. Ora Nam MD Primary Care Pro vider, Attending Provider, Referring Provider Active Team Status: Active Member Role Status Dates Dr. Ora Nam MD Primary Care Provider Active Dr. Rusty Sawyer MD Attending Provider Active Team Status: Active Member Role Status Dates Dr. Ora Nam MD Primary Care Provider Active Dr. Hernesto Brar MD Referring Provider, Other Prov ider Active Dr. Titi Calderon MD Attending Provider Active Team Status: Inactive Member Role Status Dates Dr. Ora Nam MD Primary Care Provider, Referri ng Provider Active Nicol Adkins AIR TUCKER, AIR TUCKER-C Attending Provider Active Team Status: Inactive Member Role Status Dates Dr. Ora Nam MD Primary Care Provider Active Dr. Hernesto Brar MD Attending Provider, Referring Provider Active Team Status: Inactive Member Role Status Dates Dr. Ora Nam MD Primary Care Provider Active Dr. Titi Calderon MD Attending Provider, Referring Pro vider Active Team Status: Inactive Member Role Status Dates Dr. Ora Nam MD Primary Care Provider, Referri ng Provider Active Dr. Rusty Sawyer MD Attending Provider Active Team Status: Inactive Member Role Status Dates Dr. Ora Nam MD Primary Care Provider Active Dr. Wilfred Leggett MD Attending Provider, Referring Provi sanaz Active Team Status: Inactive Member Role Status Dates Dr. Ora Nam MD Primary Care Provider Active Nicol Adkins AIR TUCKER, AIR TUCKER-C Attending Provider, Referring P rovider Active Team Status: Active Member Role Status Dates Dr. Ora Nam MD Primary Care Provider Active Dr. Titi Calderon MD Attending Provider Active Team Status: Active Member Role Status Dates Dr. Ora Nam MD Primary Care Provider Active Nicol Adkins AIR TUCKER, AIR TUCKER-C Attending Provider Active Team Status: Active Member Role/Relationship Status Dates Dr. Ora Nam MD Primary care physician Active Team Status: Inactive Member Role/Relationship Status Dates Dr. Ora Nam MD Primary care physician Active Start: April 30, 2025 Dr. Elen Alonzo MD Attending physician Active Start: April 30, 2025 Team Status: Inactive Member Role/Relationship Status Dates Dr. Ora Nam MD Primary care physician Active Start: July 31, 2025 End: July 31, 2025 Dr. Arun Larson MD Nurse Practitioner Active S tart: July 31, 2025 End: July 31, 2025 SHAHRAM Guerra Attending physician Active Sta rt: July 31, 2025 End: July 31, 2025 SHAHRAM Guerra Referring Provider Active Star t: July 31, 2025 End: July 31, 2025 Team Status: Active Member Role/Relationship Status Dates Dr. Ora Nam MD Primary care physician Active Start: July 31, 2025 Dr. Arun Larson MD Attending physician Active Start: July 31, 2025 Team Status: Active Member Role/Relationship Status Dates Dr. Ora Nam MD Primary care physician Active Start: August 05, 2025 Dr. Ora Nam MD Attending physician Active Start: August 05, 2025 Dr. Ora Nam MD Referring Provider Active Start: August 05, 2025 Team Status: Inactive Member Role/Relationship Status Dates Dr. Ora Nam MD Primary care physician Active Start: August 07, 2025 End: August 07, 2025 Dr. Ora Nam MD Referring Provider Active Start: August 07, 2025 End: August 07, 2025 Gabrielle OMALLEY, PA Attending physician Active Start: August 07, 2025 End: August 07, 2025 Team Status: Inactive Member Role/Relationship Status Dates Dr. Ora Nam MD Primary care physician Active Start: August 07, 2025 End: August 07, 2025 Dr. Ora Nam MD Referring Provider Active Start: August 07, 2025 End: August 07, 2025 Dr. Elen Alonzo MD Attending physician Active Start: August 07, 2025 End: August 07, 2025 Team Status: Inactive Member Role/Relationship Status Dates Dr. Ora Nam MD Primary care physician Active Start: April 30, 2025 Dr. Elen Alonzo MD Attending physician Active Start: April 30, 2025 Team Status: Inactive Member Role/Relationship Status Dates Dr. Ora Nam MD Primary care physician Active Start: July 31, 2025 End: July 31, 2025 Dr. Arun Larson MD Nurse Practitioner Active S tart: July 31, 2025 End: July 31, 2025 SHAHRAM Guerra Attending physician Active Sta rt: July 31, 2025 End: July 31, 2025 SHAHRAM Guerra Referring Provider Active Star t: July 31, 2025 End: July 31, 2025 Team Status: Active Member Role/Relationship Status Dates Dr. Ora Nam MD Primary care physician Active Start: July 31, 2025 Dr. Arun Larson MD Attending physician Active Start: July 31, 2025 SHAHRAM Guerra Referring Provider Active Star t: July 31, 2025 Team Status: Inactive Member Role/Relationship Status Dates Dr. Ora Nam MD Primary care physician Active Start: August 05, 2025 End: August 05, 2025 Dr. Ora Nam MD Attending physician Active Start: August 05, 2025 End: August 05, 2025 Dr. Ora Nam MD Referring Provider Active Start: August 05, 2025 End: August 05, 2025 Team Status: Inactive Member Role/Relationship Status Dates Dr. Ora Nam MD Primary care physician Active Start: August 07, 2025 End: August 07, 2025 Dr. Ora Nam MD Referring Provider Active Start: August 07, 2025 End: August 07, 2025 Gabrielle OMALLEY, PA Attending physician Active Start: August 07, 2025 End: August 07, 2025 Team Status: Inactive Member Role/Relationship Status Dates Dr. Ora Nam MD Primary care physician Active Start: August 07, 2025 End: August 07, 2025 Dr. Ora Nam MD Referring Provider Active Start: August 07, 2025 End: August 07, 2025 Dr. Elen Alonzo MD Attending physician Active Start: August 07, 2025 End: August 07, 2025 Team Status: Inactive Member Role/Relationship Status Dates Dr. Ora Nam MD Primary care physician Active Start: August 14, 2025 End: August 14, 2025 Dr. Ora Nam MD Attending physician Active Start: August 14, 2025 End: August 14, 2025 Team Status: Inactive Member Role/Relationship Status Dates Dr. Ora Nam MD Primary care physician Active Start: August 14, 2025 End: August 14, 2025 Dr. Ora Nam MD Attending physician Active Start: August 14, 2025 End: August 14, 2025 Dr. Ora Nam MD Referring Provider Active Start: August 14, 2025 End: August 14, 2025 Team Status: Active Member Role/Relationship Status Dates Dr. Ora Nam MD Primary care physician Active Start: August 15, 2025 Gabrielle Morris PA, PA Attending physician Active Start: August 15, 2025 Gabrielle Morris PA, PA Referring Provider Active Start: August 15, 2025 Goals (unrecognized section and content) Goals may be documented in a n alternate sectionGoals may be documented in an alternate sectionGoals may be documented in an alternate sectionGoals may be documented in an alternate sectionGoals may be documented in an alternate sectionGoals may be documented in an alternate sectionGoals may be documented in an alternate sectionGoals may be documented in an alternate sectionGoals may be documented in an alternate sectionGoals may be documented in an alternate sectionGoals may be documented in an alternate sectionGoals may be documented in an alternate sectionGoals may be documented in an alternate sectionGoals may be documented in an alternate sectionGoals may be documented in an alternate sectionGoals may be documented in an alternate section INFORMATION SOURCE (unrecogn ized section and content) DATE CREATED AUTHOR 09/06/2025 [facility] [facility] DATE CREATED AUTHOR 'Darshan GONGORA 09/12/2025 [facility] FOR RECORDS PERTAINING TO PATIENTS WHO ARE OR HAVE BEEN ENROLLED IN A CHEMICAL DEPENDENCY/SUBSTANCEABUSE PROGRAM, SOME INFORMATION MAY BE OMITTED. This clinical summary was aggregated from multiple sources. Caution should be exercised in using it in the provision of clinical care. This summary normalizes information from multiple sources, and as a consequence, information in this document may materially change the coding, format and clinical context of patient data. In addition, data may be omitted in some cases. CLINICAL DECISIONS SHOULD BE BASED ON THE PRIMARY CLINICAL RECORDS. [employer] provides no warranty or guarantee of the accuracy or completeness of information in this document.
--- NOTE | 2025-10-11 07:22 | PRE.ANES_ITS ---
ASA Classification* ASA Classification ASA Classification: 3 Assessment & Plan Anesthesia* Anesthesia Assessment Anesthesia Assessment: Discussed sedation and/or anesthesia options, risks, benefits, and alternatives with patient/parents/legal guardian/POA. Questions invited. The patient/parents/legal guardian/POA seems to understand and agrees to proceed with anesthesia plan. Reviewed the physical assessment, medical history, allergy history and patient home medications list prior to surgery/procedure/anesthetic and documented any changes. Performed airway and anesthesia risk assessments. Anesthesia Type Anesthesia Type: MAC Anesthesia Focused Assessment* Airway Assessment Mouth opens: >3 cm Mallampati Score: II Labs Anesthesia Preop lab: CBC WBC, (4.4-11.0) 7.4 K/mm3 08/14/25, 12:05 RBC, (4.2-5.4) 3.84 M/mm3 L 08/14/25, 12:05 Hgb, (12.0-15.0) 12.5 g/dL 08/14/25, 12:05 Hct, (37-47) 36.2 % L 08/14/25, 12:05 Plt Count, (150-450) 215 K/mm3 08/14/25, 12:05 CHEMISTRY Potassium, (3.3-5.1) 4.5 mmol/L 08/14/25, 12:05 Sodium, (133-145) 138 mmol/L 08/14/25, 12:05 Magnesium, (1.5-2.2) 2.1 mg/dL 08/05/25, 15:11 Phosphorus, (2.5-4.9) 3.9 mg/dL 12/22/20, 13:47 BUN, (4-19) 19 mg/dL 08/14/25, 12:05 Creatinine, (0.70-1.20) 0.88 mg/dL 08/14/25, 12:05 Glucose, (70-99) 91 mg/dL 08/14/25, 12:05 POC Glucose, (74-106) 150 mg/dL H 09/11/24, 06:48 TSH, (0.300-4.200) 0.738 uIU/mL 08/05/25, 15:11 COAG PT, (11.7-14.9) 13.8 SECONDS 09/03/20, 09:30 Pre-Assessment Diagnosis/Proposed Procedure Planned Operative Procedure(s): EGD Anesthesia History Anesthesia History - neonatal intensive care nurse: Anesthesia History - neonatal intensive care nurse Hx Hospitalization No 10/09/25 13:36 Any Problems With Anesthesia Yes: PARALYZED VOCAL CORD, 10/09/25 13:36 PONV Cholinesterase deficiency No 10/09/25 13:36 You/Your Family Experience No 10/09/25 13:36 fever (hyperthermia) with Relationship Recent Exposure to Contagious No 09/11/24 06:43 Disease Does patient have nerve No 10/09/25 13:36 stimulator Patient instructed to have device shut off --Does patient have Pacemaker or ICD? When Was Last Pacemaker Check QUESTION #4 FULL TEXT: You/Your Family Experience fever (hyperthermia) with Anesthesia Last Oral Intake Last Oral intake: Last Oral Intake NPO since Meds taken in AM with sips of water? Meds patient instructed to take am of surgery PONV PONV - neonatal intensive care nurse: PONV - neonatal intensive care nurse Female Yes 10/09/25 13:36 HX of Motion Sickness Yes 10/09/25 13:36 HX of N/V After Surgery Yes 10/09/25 13:36 Non-Smoker Yes 10/09/25 13:36 Duration of Surgery greater No 10/09/25 13:36 than 60 minutes Number of Risk Factors 4 10/09/25 13:36 PONV Score Severe Risk 10/09/25 13:36 Height & Weight Height & Weight: Anesthesia: Height & Weight Height 5 ft 2 in 10/04/25 07:18 Respiratory Assessment Respiratory Assessment - neonatal intensive care nurse: Respiratory Tract Infection Hx - neonatal intensive care nurse Hx Respiratory Tract Infection No 10/09/25 13:36 STOP Sleep Apnea STOP Sleep Apnea - neonatal intensive care nurse: STOP Sleep Apnea - neonatal intensive care nurse Hx Hypertension Yes: CONTROLLED WITH MEDS 10/09/25 13:36 Hx Sleep Apnea No 10/09/25 13:36 CPAP BIPAP Do you snore loudly (louder No 10/09/25 13:36 than talking or can be heard Do you often feel tired/ No 10/09/25 13:36 fatigued/ sleepy during daytime? Has anyone observed you stop No 10/09/25 13:36 breathing during sleep? STOP Results Negative 10/09/25 13:36 QUESTION #5 FULL TEXT : Do you snore loudly (louder than talking or can be heard through closed doors)? Tobacco Use History Tobacco Use History - neonatal intensive care nurse: Tobacco Use History - neonatal intensive care nurse Tobacco Use Smoking Status Never smoker 10/09/25 13:36 Hx Tobacco Use No 10/09/25 13:36 Years Smoking Packs Smoked per Day Smoking Cessation Date was within the last 15 years Hx Smoking Cessation Date Hx Smoking Cessation Counseling Hematologic Medial History Hematologic Hx - neonatal intensive care nurse: Hematologic Medical Hx - molecular pathologist Hx of Blood Transfusion No 10/09/25 13:36 Hx of Transfusion in last 3 No 10/09/25 13:36 Months Date of Last Transfusion (if within last 3 months) Ever experience any problems No 10/09/25 13:36 with transfusion(s)? Specify any problems Hx of Preganancy in last 3 No 10/09/25 13:36 Months Nurse Filling Out Transfusion [id number] 10/09/25 13:36 & Questions: Date: 10/09/25 10/09/25 13:36 Time: 13:39 10/09/25 13:36 Patient unable to answer at this time (ie. confused, unrespo /Reproduction History /Reproductive History - neonatal intensive care nurse: /Reproductive Hx- neonatal intensive care nurse Hx Now Gestational Age (in weeks): EDC: Hx Hx Para Hx Section SAB No 10/09/25 13:36 Does the father of the baby or his family experience fever w Father of the baby Malignant Hypertension history comment Active Medications Active Medications: Current Medications Generic Name Dose Route Start Last Admin Trade Name Freq PRN Reason Stop Dose Admin Lactated Ringer's 1,000 mls @ 15 mls/hr 10/11/25 07:15 IV .Q48H MAUDE PFSH Medical History History of rheumatic fever Nausea RUQ pain PONV (postoperative nausea and vomiting) Unilateral vocal cord paralysis Graves disease Thyroid disease Rheumatoid arthritis High cholesterol TIA (transient ischemic attack) History of hiatal hernia Diverticulosis History of colitis Shortness of breath on exertion Chronic cough Leg cramps History of edema Hypertension Epigastric pain Rectal bleeding Dysphagia Abnormal stress test Carotid stenosis Wears glasses Anxiety Cancer Hyperthyroidism Diabetes Bladder leak Hemochromatosis Fatty liver Restless leg Back pain Concussion Mini stroke Light-headedness Dietary restriction Hernia, hiatal Hx of duodenal ulcer Diverticulitis GERD (gastroesophageal reflux disease) Non-smoker History of pain when walking Edema Rheumatic fever Cardiology follow-up encounter H/O echocardiogram History of stress test Obesity Thyroid cancer Asthma Knee pain Cancer Arthritis Postprocedural hypothyroidism Paroxysmal atrial fibrillation Atrial fibrillation Hypothyroidism stem cell replacement Lt knee Essential hypertension Screening for intestinal cancer GERD (gastroesophageal reflux disease) Chest pain, unspecified HTN (hypertension) Left carotid artery stenosis HLD (hyperlipidemia) Diabetes mellitus Fatigue Visual disturbance Pulmonary hypertension Home Medications ?Medication ?Instructions ?Recorded ?Last Taken ?Type fluticasone propionate 50 1 spray NASAL DAILY PRN Forrest estion 09/29/15 Unknown History mcg/actuation nasal spray,suspension cholecalciferol (vitamin D3) 50 5,000 unit PO DAILY PULLIAM PPLEMENT 08/24/17 Unknown History mcg (2,000 unit) capsule ascorbate calcium (vitamin C) 500 500 mg PO DAILY SUPP LEMENT 07/10/20 Unknown History mg tablet artifi.tears(hypromellose)(PF) 0.3 1 drp ophthalmic (e ye) DAILY PRN 05/31/22 Unknown History % eye drops Dry Eye(S) aspirin 81 mg tablet,delayed 81 mg PO QDAY HEART HEALT H 09/09/22 10/05/25 History release (Adult Aspirin Regimen) ibuprofen 800 mg tablet 800 mg PO BID PRN PAIN 01/12 Unknown History omeprazole magnesium 20 mg 40 mg PO QHS GERD 05/22/24 Unknown History capsule,delayed release (Acid Document Control Supervisor (omeprazole)) psyllium husk 0.4 gram capsule 0.4 g PO DAILY PRN cons tipation 05/22/24 Unknown History (Metamucil) estradiol 0.01% (0.1 mg/gram) 1 g vaginal 2XW #42.5 gr ams 02/20/25 Unknown Rx vaginal cream amlodipine 5 mg tablet 5 mg PO QHS 08/07/25 Unknown History levothyroxine 137 mcg tablet 137 mcg PO QDAY #90 tabs 09/05/25 Unknown Rx metoprolol tartrate 50 mg tablet 50 mg PO .COMPLEX #18 0 tabs 09/11/25 Unknown Rx tirzepatide 2.5 mg/0.5 mL 2.5 mg (0.5 mL) subcut QWEEK #2 mL 10/07/25 10/03/25 Rx subcutaneous pen injector estradiol 0.05 mg/24 hr semiweekly 1 patch topical SUW E 10/09/25 Unknown History transdermal patch ranolazine 500 mg tablet,extended 500 mg PO BID Unknown History release,12 hr Allergy/AdvReac Type Severity Reaction Status Date / Time amoxicillin Allergy Unknown Verified 10/09/25 13:30 duloxetine (From Cymbalta) Allergy neuropathy Verified 10/09/25 13:30 losartan (Losartan) Allergy Unknown Verified 10/09/25 13:30 ramipril Allergy Unknown Verified 10/09/25 13:30 ranitidine HCl (From Zantac) Allergy Unknown Verified 10/09/25 13:30 meloxicam (From Mobic) AdvReac Severe Heartburn Verified 10/09/25 13:30 ondansetron (From Zofran) AdvReac Severe Heartburn Verified 10/09/25 13:30 celecoxib (From Celebrex) AdvReac Upset Verified 10/09/25 13:30 Stomach cortisone AdvReac emotional Verified 10/09/25 13:30 issues glimepiride AdvReac Nausea/Vom/ Verified 10/09/25 13:30 Diarrhea metformin HCl (From AdvReac Nausea/Vom/ Verified 10/09/25 13:30 Glucophage) Diarrhea methotrexate AdvReac Unknown Verified 10/09/25 13:30 Penicillins AdvReac Nausea/Vom/ Verified 10/09/25 13:30 Diarrhea pravastatin AdvReac MUSCLE PAIN Verified 10/09/25 13:30 Family History Father CAD (coronary artery disease) Ischemic cardiomyopathy Mother Atrial fibrillation CHF (congestive heart failure) Pulmonary fibrosis Sister Myocardial infarction Diabetes COPD (chronic obstructive pulmonary disease) Hypertension Cancer Pancreatic Brother Cancer Pancreatic CA Diabetes Atrial fibrillation Surgical History Cataract fragments in eye following cataract surgery History of left-sided carotid endarterectomy History of left-sided carotid endarterectomy (~09/20/22) Hx of cardiac catheterization History of thyroidectomy, total H/O: hysterectomy History of knee replacement S/P thyroid biopsy (~02/2018) Social History Smoking Status: Never smoker alcohol intake: former substance use type: does not use what type of physical activity do you participate in: other details: physical therapy frequency: 1-2 times per week duration: 45-60 minutes/day seatbelt use: always do you feel safe at home: Yes Review of Systems (Anesthesia) ROS Narrative System reviewed and no additional complaints, except as documented.
[2025-10-11] MEDS: Lactated Ringers 1,000 ML 15 ML IV (07:43)
--- NOTE | 2025-10-11 07:55 | PCM.HP.BLA ---
History and Physical Date of Admission: 10/11/25 Intake Vital Signs 08/14/2508:56 09/18/2513:34 Height 5 ft 2 in 5 ft 2 in Weight: 241 lb BMI 44.0 BP 158/80 H Blood Pressure Location Rt brachial Position Sitting Respiration 17 Pulse 71 Pulse Source Monitor Pulse Oximetry (%) 97 Oxygen Delivery Method room air Intake Visit Reasons: Esophagogastroduodenoscopy Chief Complaint: egd Is patient in pain?: No Allergies amoxicillin Allergy (Verified 09/18/25 13:35) Unknown duloxetine (From Cymbalta) Allergy (Verified 09/18/25 13:35) neuropathy losartan (Losartan) Allergy (Verified 09/18/25 13:35) Unknown ramipril Allergy (Verified 09/18/25 13:35) Unknown ranitidine HCl (From Zantac) Allergy (Verified 09/18/25 13:35) Unknown meloxicam (From Mobic) Adverse Reaction (Severe, Verified 09/18/25 13:35) Heartburn ondansetron (From Zofran) Adverse Reaction (Severe, Verified 09/18/25 13:35) Heartburn celecoxib (From Celebrex) Adverse Reaction (Verified 09/18/25 13:35) Upset Stomach cortisone Adverse Reaction (Verified 09/18/25 13:35) emotional issues glimepiride Adverse Reaction (Verified 09/18/25 13:35) Nausea/Vom/Diarrhea metformin HCl (From Glucophage) Adverse Reaction (Verified 09/18/25 13:35) Nausea/Vom/Diarrhea methotrexate Adverse Reaction (Verified 09/18/25 13:35) Unknown Penicillins Adverse Reaction (Verified 09/18/25 13:35) Nausea/Vom/Diarrhea pravastatin Adverse Reaction (Verified 09/18/25 13:35) MUSCLE PAIN Medications ?Medication ?Instructions ?Recorded ?Confirmed ?Type fluticasone propionate 50 1 spray NASAL DAILY PRN Congestion 09/29/15 09/18/25 History mcg/actuation nasal spray,suspension cholecalciferol (vitamin D3) 50 5,000 unit PO DAILY SUPPLEMENT 08/24/17 09/18/25 History mcg (2,000 unit) capsule ascorbate calcium (vitamin C) 500 500 mg PO DAILY SUPPLEMENT 07/10/20 09/18/25 History mg tablet artifi.tears(hypromellose)(PF) 0.3 1 drp ophthalmic (eye) DAILY PRN 05/31/22 09/18/25 History % eye drops Dry Eye(S) aspirin 81 mg tablet,delayed 81 mg PO QDAY HEART HEALTH 09/09/22 09/18/25 History release (Adult Aspirin Regimen) estradiol 0.1 mg/24 hr semiweekly 0.1 mg topical SUWE MENOPAUSE 09/09/22 09/18/25 History transdermal patch (Vivelle-Dot) ibuprofen 800 mg tablet 800 mg PO BID PRN PAIN 01/12/23 09/18/25 History omeprazole magnesium 20 mg 40 mg PO DAILY GERD 05/22/24 09/18/25 History capsule,delayed release (Acid Carton Repairer (omeprazole)) psyllium husk 0.4 gram capsule 0.4 g PO DAILY PRN constipation 05/22/24 09/18/25 History (Metamucil) estradiol 0.01% (0.1 mg/gram) 1 g vaginal 2XW #42.5 grams 02/20/25 09/18/25 Rx vaginal cream amlodipine 5 mg tablet 5 mg PO QDAY 08/07/25 09/18/25 History tirzepatide 2.5 mg/0.5 mL 2.5 mg (0.5 mL) subcut QWEEK #2 mL 08/15/25 09/18/25 Rx subcutaneous pen injector ranolazine 500 mg tablet,extended 500 mg PO .COMPLEX #360 tabs 08/20/25 09/18/25 Rx release,12 hr promethazine 12.5 mg tablet 12.5 mg PO TID PRN nausea and 09/04/25 09/18/25 Rx vomiting #20 tabs sucralfate 1 gram tablet (Carafate) 1 g PO QAC #20 tabs 09/04/25 09/18/25 Rx levothyroxine 137 mcg tablet 137 mcg PO QDAY #90 tabs 09/05/25 09/18/25 Rx metoprolol tartrate 50 mg tablet 50 mg PO .COMPLEX #180 tabs 09/11/25 09/18/25 Rx Have you fallen in the past year?: No PFSH Medical History Nausea RUQ pain PONV (postoperative nausea and vomiting) Unilateral vocal cord paralysis Graves disease Thyroid disease Rheumatoid arthritis High cholesterol TIA (transient ischemic attack) History of hiatal hernia Diverticulosis History of colitis Shortness of breath on exertion Chronic cough Leg cramps History of edema Hypertension Epigastric pain Rectal bleeding Dysphagia Abnormal stress test Carotid stenosis Wears glasses Anxiety Cancer Hyperthyroidism Diabetes Bladder leak Hemochromatosis Fatty liver Restless leg Back pain Concussion Mini stroke Light-headedness Dietary restriction Hernia, hiatal Hx of duodenal ulcer Diverticulitis GERD (gastroesophageal reflux disease) Non-smoker History of pain when walking Edema Rheumatic fever Cardiology follow-up encounter H/O echocardiogram History of stress test Obesity Thyroid cancer Asthma Knee pain Cancer Arthritis Postprocedural hypothyroidism Paroxysmal atrial fibrillation Atrial fibrillation Hypothyroidism stem cell replacement Lt knee Essential hypertension Screening for intestinal cancer GERD (gastroesophageal reflux disease) Chest pain, unspecified HTN (hypertension) Left carotid artery stenosis HLD (hyperlipidemia) Diabetes mellitus Fatigue Visual disturbance Pulmonary hypertension Surgical History Cataract fragments in eye following cataract surgery History of left-sided carotid endarterectomy History of left-sided carotid endarterectomy (~09/20/22) Hx of cardiac catheterization History of thyroidectomy, total H/O: hysterectomy History of knee replacement S/P thyroid biopsy (~02/2018) Family History Father CAD (coronary artery disease) Ischemic cardiomyopathy Mother Atrial fibrillation CHF (congestive heart failure) Pulmonary fibrosis Sister Myocardial infarction Diabetes COPD (chronic obstructive pulmonary disease) Hypertension Cancer Pancreatic Brother Cancer Pancreatic CA Diabetes Atrial fibrillation Social History (Updated 09/18/25 @ 13:34 by Patrizia Forte) Smoking Status: Never smoker alcohol intake: former substance use type: does not use what type of physical activity do you participate in: other details: physical therapy frequency: 1-2 times per week duration: 45-60 minutes/day seatbelt use: always do you feel safe at home: Yes HPI HPI HPI: Patient is a 75-year-old female who is here with dysphagia. She says that ever since she had her thyroid removed she is having difficulty swallowing. She says she feels food and pills getting stuck. She said even some liquids burning. She is on omeprazole. ROS General General: Yes weight change and fatigue; No appetite, colon cancer, breast cancer or weakness HEENT HEENT: Yes difficulty swallowing and eye surgery; No eye injury, swollen glands or hoarseness Endo Endocrine: Yes diabetes mellitus and thyroid cancer; No thyroid disease, Hair loss, heat intolerance or cold intolerance Additional Details: Thyroidectomy on 2020 Skin Skin: No rash or changing moles Musc Musculoskeletal: Yes back problems and arthritis; No rheumatoid arthritis, gout or joint pain Cardio Cardiovascular: Yes murmur, atrial fibrillation and high blood pressure; No pacemaker, heart disease, heart attack, heart stent, palpitations, shortness of breath with exertion or chest pain Psych Psychiatric: Yes anxiety; No depression or hearing voices Resp Respiratory: Yes shortness of breath, No sleep apnea, Yes cough, No COPD, Yes asthma, No emphysema and No wheezing Gastro Gastrointestinal: Yes abdominal pain, Yes nausea or vomiting, No diarrhea, No constipation, Yes blood in stool, Yes acid reflux, No hemorrhoids, Yes ulcers, No gallbladder problem and No black,tarry stools Ed Hematologic: No blood thinners, No blood disorders, No bleeding, No anemia and No blood clots Neuro Neurologic: No system reviewed and no additional complaints, except as documented, No as per HPI, No abnormal gait, No abnormal hearing, No abnormal movements, No abnormal speech, No behavioral changes, No burning sensations, No confusion, No convulsions, No disequilibrium, No dizziness, No localized weakness, No frequent falls, No headache(s), No lack of coordination, No loss of vision, No memory loss, Yes numbness, No other visual disturbances, No radicular pain, No restless legs, No sensory deficit, No syncope, Yes tingling, No tremor(s), No weakness and No other Exam Const General: cooperative Orientation: alert and oriented x3 HENMT Head: normal to inspection Neck Neck: normal visual inspection and full ROM Chest Chest palpation & inspection: normal inspection of the chest Resp Effort & Inspection: normal respiratory effort Auscultation: clear to auscultation bilaterally Cardio Rate: regular rate Rhythm: regular rhythm GI Inspection: non-distended Palpation: soft and nontender Skin General: no rashes or lesions noted Neuro General: patient alert and patient oriented x3 Extrem General: full ROM Psych Appearance: grossly normal Mental Status: mental status grossly normal Assessment and Plan Assessment and Plan (1) Dysphagia: Status: Acute Plan: The patient reports that she is feeling food and pills getting stuck in her esophagus. She would like EGD to evaluate. Her last EGD was several years ago. I discussed performing EGD with possible dilation. I explained endoscopy in detail to the patient. I explained the risks including but not limited to stroke or heart attack with anesthesia, perforation of the GI tract, bleeding, infection. I explained that any of these could necessitate further emergency surgery. The patient understands and all questions were answered sufficiently. The patient wishes to proceed with procedure. I discussed the increased risk of perforation or bleeding with dilation. The patient understands and is willing to proceed. Amaury Barbosa MD Pager: [facility] [address] [place] [address] [address] [place] [address] Office: I have examined the patient and the H&P has been reviewed. There are no clinical changes since date of exam.
--- NOTE | 2025-10-11 08:19 | OP.PROVAT_ITS ---
10/11/2025 Ora Nam [facility] [address] [place] [address] Re : Upper GI endoscopy procedure for Macy Daigle Dear Dr. Nam This procedure was performed on Saturday, October 11, 2025. My impressions and recommendations are as follows: Impressions : - Normal esophagus. - Normal stomach. - Normal examined duodenum. - A nodule was found. - No specimens collected. Recommendations : - Discharge patient to home. - Resume previous diet. - Continue present medications. - Refer to an ENT specialist at appointment to be scheduled. My findings are described in the full procedure note, which is enclosed. If I can be of further assistance, please feel free to contact me at Doctor phone number(s): , Work: . Sincerely, Amaury Barbosa MD 10/11/2025 8:19:05 AM This report has been signed electronically.
--- NOTE | 2025-10-11 08:19 | OP.EGD_ITS ---
Patient Name: Macy Daigle Procedure Date: 10/11/2025 8:02 AM Date of : 1950 Age: 75 Procedure: Upper GI endoscopy Indications: Dysphagia Providers: Amaury Barbosa MD Referring MD: Ora Nam Medicines: Propofol per Anesthesia Patient Profile: This is a 75 year old female. Refer to note in patient chart for documentation of history and physical. Complications: No immediate complications. Estimated blood loss: Minimal. Procedure: Pre-Anesthesia Assessment: - Prior to the procedure, a History and Physical was performed, and patient medications and allergies were reviewed. The patient's tolerance of previous anesthesia was also reviewed. The risks and benefits of the procedure and the sedation options and risks were discussed with the patient. All questions were answered, and informed consent was obtained. Prior Anticoagulants: The patient has taken no anticoagulant or antiplatelet agents. After reviewing the risks and benefits, the patient was deemed in satisfactory condition to undergo the procedure. After obtaining informed consent, the endoscope was passed under direct vision. Throughout the procedure, the patient's blood pressure, pulse, and oxygen saturations were monitored continuously. The Endoscope was introduced through the mouth, and advanced to the third part of duodenum. The upper GI endoscopy was accomplished without difficulty. The patient tolerated the procedure well. Scope In: 8:11:12 AM Scope Out: 8:14:18 AM Total Procedure Duration Time 0 hours 3 minutes 6 seconds Findings: The esophagus was normal. The stomach was normal. The examined duodenum was normal. A small non-obstructing nodule was found [Site]. Impression: - Normal esophagus. - Normal stomach. - Normal examined duodenum. - A nodule was found. - No specimens collected. Recommendation: - Discharge patient to home. - Resume previous diet. - Continue present medications. - Refer to an ENT specialist at appointment to be scheduled. Procedure Code(s): --- Professional --- 42282, Esophagogastroduodenoscopy, flexible, transoral; diagnostic, including collection of specimen(s) by brushing or washing, when performed (separate procedure) Diagnosis Code(s): --- Professional --- J38.7, Other diseases of larynx R13.10, Dysphagia, unspecified CPT copyright 2021 [employer]. All rights reserved. The codes documented in this report are preliminary and upon tire sorter review may be revised to meet current compliance requirements. Amaury Barbosa MD 10/11/2025 8:19:05 AM This report has been signed electronically. Number of Addenda: 0 Note Initiated On: 10/11/2025 8:02 AM
--- NOTE | 2025-10-11 08:26 | PCM.POST.ANE ---
Anesthesia: Postop Eval I Current Vital Signs Temperature: 97.3 F Pulse Rate: 64 Blood Pressure: 122/55 Respiratory Rate: 16 Pulse Ox: 97 Oxygen Delivery Method: Room Air Assessment Airway patent: Yes Spontaneous unlabored respirations: Yes Mental status: Awake and Calm nausea: No Vomiting: No Anesthesia Complication: No Fluid Hydration Crystalloid volume administer (ml): 300 Total IV fluid infused: 300 Progress Note Anesthesia document: Postop Eval 1 completed: Yes
--- NOTE | 2025-10-11 09:10 | PCM.POSTANE2 ---
Anesthesia Postop Eval I Sum Postop Eval Completion status Anesthesia document: Postop Eval 1 completed: Yes Anesthesia Postop Eval I Summary Anesthesia Postop Eval I Summary: Anesthesia Postop Eval I: Assessment Summary Airway patent Yes 10/11/25 08:28 [email or web address] Spontaneous unlabored Yes 10/11/25 08:28 [email or web address] respirations Mental status Awake,Calm 10/11/25 08:28 [email or web address] nausea No 10/11/25 08:28 [email or web address] Vomiting No 10/11/25 08:28 [email or web address] Anesthesia Postop Eval I: Fluid Summary Crystalloid volume administer 300 10/11/25 08:28 [email or web address] (ml) Colloids volume administered ( ml) Blood Product volume administered (ml) Total IV fluid infused 300 10/11/25 08:28 [email or web address] Anesthesia Postop Eval I: Summary Notes Anesthesia Complication No 10/11/25 08:28 [email or web address] Anesthesia Complication Comment: Post-operative progress note Anesthesia: Postop Eval II Evaluation Mental status: Awake Pain Level: 0 nausea: No Vomiting: No
== END 2025-10-11 08:51 | disposition home or self-care (01) ==
LOC: EN 06:53 → AC 06:55
PROVIDERS: PCP Internal Medicine; Referring Provider Internal Medicine; Visit Provider Surgery
PROC: 0DJ08ZZ Inspection of Upper Intestinal Tract, Via Natural or Artificial Opening Endoscopic (ICD-10-PCS; CPT 43235; principal; 2025-10-11 07:55)
DX: R13.10 Dysphagia, unspecified (principal); I48.0 Paroxysmal atrial fibrillation; E11.9 Type 2 diabetes mellitus without complications; I10 Essential (primary) hypertension; Z90.710 Acquired absence of both cervix and uterus; Z79.899 Other long term (current) drug therapy; Z86.73 Personal history of transient ischemic attack (TIA), and cerebral infarction without residual deficits; E78.00 Pure hypercholesterolemia, unspecified; Z96.659 Presence of unspecified artificial knee joint; J45.909 Unspecified asthma, uncomplicated; Z79.51 Long term (current) use of inhaled steroids; E03.9 Hypothyroidism, unspecified; Z79.890 Hormone replacement therapy; K21.9 Gastro-esophageal reflux disease without esophagitis; J38.7 Other diseases of larynx
CPT/HCPCS: 43235; 82962